=== PATIENT | female | born 1975 | race Hispanic/Latino ===

== ENCOUNTER 2018-08-02 16:44 | Emergency (ER) | payer OTHER ==
[~2018-08-02] VITALS: Ht 160 cm; Wt 104.3 kg
[~2018-08-02 16:44] MED LIST: GLIPIZIDE5 MG PO; SYNTHROID100 MCG PO
--- OUTSIDE RECORDS SUMMARY | 2018-08-02 16:46 | XMS REPORT | Clinical Summary ---
Author Author NATALIE [facility] Address Unknown Phone Unavailable Care Team Providers Care Linen Manager Name Role Phone Anderson Kat MD PCP Allergies Comments Active Allergy Reactions Severity Noted Date Vancomycin Analogues Hives 04/14/2013 Medications End Date Status Medication Sig Dispensed Refills Start Date Active insulin glargine 100 Inject 5 10 Syringe 5 unit/mL (3 mL) InPn Units 7 subcutaneousl y every morning. Active levothyroxine (SYNTHROID, Take 1 tablet 90 tablet 0 LEVOTHROID) 200 MCG (200 mcg 7 tablet total) by mouth Every morning on an empty stomach Total of 250 mcg daily. Active sertraline (ZOLOFT) 25 MG Take 25 mg by 0 tablet mouth daily. 08/28/2017 aspirin 81 MG EC tablet Take 1 tablet 30 tablet 1 (81 mg total) 7 by mouth daily. 08/28/2017 prasugrel (EFFIENT) 10 mg Take 1 tablet 30 tablet 1 Tab tablet (10 mg total) 7 by mouth daily. 11/02/2017 levothyroxine (SYNTHROID, Take 1 tablet 90 tablet 0 LEVOTHROID) 50 MCG tablet (50 mcg 7 total) by mouth Every morning on an empty stomach Total of 250 mcg of levothyroxine daily. 11/02/2017 liothyronine (CYTOMEL) 5 Take 1 tablet 90 tablet 0 MCG tablet (5 mcg total) 7 by mouth daily. 11/02/2017 pregabalin (LYRICA) 25 MG Take 1 90 capsule 0 capsule capsule (25 7 mg total) by mouth nightly. Max Daily Amount: 25 mg 11/02/2017 glipiZIDE-metFORMIN Take 1 tablet 180 tablet 0 (METAGLIP) 5-500 mg per by mouth 2 7 tablet (two) times daily before meals. 11/02/2017 atorvastatin (LIPITOR) 80 Take 1 tablet 90 tablet 0 MG tablet (80 mg total) 7 by mouth daily. Active Problems Problem Noted Date Severe sepsis with septic shock (CODE) 11/05/2016 Elevated lactic acid level 11/05/2016 E coli bacteremia 11/05/2016 Sepsis secondary to UTI 11/04/2016 Iron deficiency anemia secondary to inadequate dietary iron intake 09/24/2016 Myocardial infarction 08/27/2016 Leucocytosis 08/26/2016 Hypochromic microcytic anemia 08/26/2016 Diabetes mellitus due to underlying condition with hyperosmolarity without 08/26/2016 coma, without long-term current use of insulin Precordial chest pain 08/25/2016 Obesity (BMI 30-39.9) 08/25/2016 Hypothyroid 08/25/2016 Diabetic neuropathy 08/25/2016 Type 2 diabetes, uncontrolled, with neuropathy 08/25/2016 NSTEMI (non-ST elevated myocardial infarction) 08/25/2016 Left arm pain 08/25/2016 Acquired hypothyroidism 02/17/2016 Chest pain, unspecified type 02/16/2016 Angular cheilitis 09/25/2013 Anemia 09/24/2013 Hypertension Acid reflux disease Diabetes mellitus Family History Medical History Relation Name Comments Heart disease Father Arthritis Mother Diabetes Mother Hypertension Mother Relation Name Status Comments Father Mother Social History Date Tobacco Use Types Packs/Day Years Used Never Smoker Smokeless Tobacco: Never Used Alcohol Use Drinks/Week oz/Week Comments Yes 1 Cans of 0.6 socially once a month7 beer Sex Assigned at Date Recorded Not on file Industry Job Start Date Occupation Not on file Not on file Not on file Travel End Travel History Travel Start No recent travel history available. Last Filed Vital Signs Not on file Plan of Treatment Health Maintenance Due Date Last Done Comments INFLUENZA VACCINE 03/04/2018 Implants Device Identifier Shelf Expiration Date Model / Serial / Lot Implanted Type Area Manufactur er 06/03/2017 [id number] / / [id number] Device Clsr Angio-Seal Vip 6fr Cardiovasc Right: Groin ST DEB [id number] - [id number] ular MED:CARDIA Implanted: Qty: 1 on 08/25/2016 by Devante Stoner MD 04/11/2017 [id number] / / [id number] Synergy Stents-Cor N/A: Coronary [place] Implanted: Qty: 1 on 08/25/2016 by Devante Salas MD Results Not on fileafter 08/01/2017 Insurance Payer Benefit Subscriber ID Type Phone Address Plan / Group [employer] - [employer] C[employer] HMO xxxxxxxxx HMO/POS POS QPOS Advance Directives For more information, please contact: [address] [address] Date Inactivated Comments Code Status Date Activated 11/07/2016 2:23 PM Full Code 11/04/2016 1:50 PM This code status was determined by: Patient 09/22/2016 7:16 PM Full Code 09/22/2016 2:07 PM This code status was determined by: Patient 02/18/2016 4:23 PM Full Code 02/16/2016 11:55 PM This code status was determined by: Patient 09/26/2013 3:15 PM All possible means of support, including: cardiac massage, mechanical ventilation, and defibrillation will be used to support life. Code ONE 09/24/2013 11:01 PM
--- OUTSIDE RECORDS SUMMARY | 2018-08-02 16:47 | XMS REPORT ---
[facility] Address Unknown Phone Unavailable Care Team Providers Care Body Technician/Painter Name Role Phone AIDANANA MARIATommie SINGLETON Unavailable Unavailable TRACEY FRITZ Unavailable Unavailable JOHN VALDOVINOS Unavailable Unavailable BECKY ECHEVARRIA Unavailable Unavailable ARSLAN SHEPARD Unavailable Unavailable Payers Payer Name Policy Type Policy Number Effective Date Expiration Date Problems This patient has no known problems. Allergies, Adverse Reactions, Alerts Allergy Name Allergy Type Status Severity Reaction(s) Onset Date Inactive Date Treating Clinician Comments vancomycin DA Active SV 2018-03-11 00:00:00 vancomycin DA Active SV 2018-01-15 00:00:00 Medications This patient has no known medications. Results Test Description Test Time Test Comments Text Results Atomic Results Result Comments URINE CULTURE 2017-02-28 15:27:00 CULTURE (BEAKER) (test feck=6324) 30-39,000 col/mL Shantell albicans >100,000 col/ml skin floraBASI METABOLIC [id number] 21:57:00* Test Item Value Reference Range Comments SODIUM (BEAKER) (test bczd=021) 135 meq/L 135-148 POTASSIUM (BEAKER) (test kqph=785) 4.6 meq/L 3.6-5.5 CHLORIDE (BEAKER) (test ikfz=274) 102 meq/L 98-106 CO2 (BEAKER) (test qwyu=609) 24 meq/L 24-32 BLOOD UREA NITROGEN (BEAKER) (test xevj=180) 11 mg/dL 10-26 CREATININE (BEAKER) (test giyz=288) 0.66 mg/dL 0.50-1.20 GLUCOSE RANDOM (BEAKER) (test gkyq=775) 279 mg/dL 70-110 CALCIUM (BEAKER) (test bndl=567) 8.0 mg/dL 8.5-10.5 EGFR (BEAKER) (test uzia=7985) mL/min/1.73 sq m INSUFFICIENT CLINICAL DATA TO CALCULATE ESTIMATED GFR. RAD, CHEST, 2 [id number] 21:21:00Reason for exam:->DIZZINESSReason for exam:->BLURRED VISIONIs the patient ?->UnknownFINAL REPORT EXAMINATION: 2 VIEW CHEST INDICATION: DIZZINESS, BLURRED VISION IMPRESSION: Compared with 01/16/2017 Tip of the right sided Port-A-Cath projects along the expected course of the superior vena cava. No definite evidence of focal lung consolidation, pulmonary edema or pleural effusion. The heart size is normal. A coronary stent is suspected along the expected course of the left coronary artery. Mediastinal contours are sharp and stable. No evidence of an acute osseous abnormality or pneumothorax. In summary, no radiographic evidence of an acute cardiopulmonary process. Signed: [facility] Verified Date/Time: 02/25/2017 21:21:02 Reading Location: [address] Reading Room D TROPONIN [id number] 20:34:00* Test Item Value Reference Range Comments RAPID TROPONIN I (BEAKER) (test ujqy=3967) < ng/mL <0.05 URINALYSIS W/ [id number] 20:32:00* Test Item Value Reference Range Comments COLOR (BEAKER) (test lmux=847) Yellow CLARITY (BEAKER) (test fapy=580) Cloudy SPECIFIC GRAVITY UA (BEAKER) (test zzss=272) 1.010 1.001-1.035 PH UA (BEAKER) (test moxz=594) 6.0 5.0-8.0 PROTEIN UA (BEAKER) (test reex=691) Negative Negative GLUCOSE UA (BEAKER) (test fvng=748) 500 mg/dL Negative KETONES UA (BEAKER) (test lgoe=319) Trace Negative BILIRUBIN UA (BEAKER) (test ajcx=101) Negative Negative BLOOD UA (BEAKER) (test csfv=222) Trace Negative NITRITE UA (BEAKER) (test uioy=169) Negative Negative LEUKOCYTE ESTERASE UA (BEAKER) (test yjxe=322) Small Negative UROBILINOGEN UA (BEAKER) (test cnko=589) 0.2 mg/dL 0.2-1.0 BACTERIA (BEAKER) (test gnke=772) Moderate YEAST (BEAKER) (test jlkh=1613) Few RBC UA-MANUAL (BEAKER) (test otys=7903) <5 /HPF WBC UA-MANUAL (BEAKER) (test rujc=8662) 10-20 /HPF SQUAMOUS EPITHELIAL MANUAL (BEAKER) (test sdzn=5679) 20-50 /HPF SOURCE(BEAKER) (test ceqj=5682) CBC W/PLT COUNT & AUTO [id number] 20:25:00* Test Item Value Reference Range Comments WHITE BLOOD CELL COUNT (BEAKER) (test hskv=268) 11.9 10e3/ L 4.0-10.0 RED BLOOD CELL COUNT (BEAKER) (test gogv=380) 4.25 10e6/ L 4.00-5.00 HEMOGLOBIN (BEAKER) (test rpit=870) 9.0 g/dL 12.0-15.0 HEMATOCRIT (BEAKER) (test vhuj=028) 30.5 % 36.0-45.0 MEAN CORPUSCULAR VOLUME (BEAKER) (test ssrl=381) 71.9 fL 82.0-99.0 MEAN CORPUSCULAR HEMOGLOBIN (BEAKER) (test dsaq=256) 21.3 pg 27.0-33.0 MEAN CORPUSCULAR HEMOGLOBIN CONC (BEAKER) (test jusx=373) 29.6 g/dL 32.0-36.0 RED CELL DISTRIBUTION WIDTH (BEAKER) (test vivv=553) 15.2 % 10.3-14.2 PLATELET COUNT (BEAKER) (test fydw=179) 519 10e3/ L 150-430 Occasional LARGE PLATELETS seen on slide review. MEAN PLATELET VOLUME (BEAKER) (test kihc=780) 8.5 fL 6.5-10.5 NEUTROPHILS RELATIVE PERCENT (BEAKER) (test nypm=756) 64 % LYMPHOCYTES RELATIVE PERCENT (BEAKER) (test vwgx=960) 26 % MONOCYTES RELATIVE PERCENT (BEAKER) (test prru=228) 6 % EOSINOPHILS RELATIVE PERCENT (BEAKER) (test zdhb=075) 4 % BASOPHILS RELATIVE PERCENT (BEAKER) (test gfsq=514) 1 % NEUTROPHILS ABSOLUTE COUNT (BEAKER) (test zhhc=828) 7.59 10e3/ L 1.80-8.00 LYMPHOCYTES ABSOLUTE COUNT (BEAKER) (test ysrq=218) 3.15 10e3/ L 1.48-4.50 MONOCYTES ABSOLUTE COUNT (BEAKER) (test amzk=660) 0.67 10e3/ L 0.00-1.30 EOSINOPHILS ABSOLUTE COUNT (BEAKER) (test niib=504) 0.45 10e3/ L 0.00-0.50 BASOPHILS ABSOLUTE COUNT (BEAKER) (test htiu=458) 0.06 10e3/ L 0.00-0.20 SCREEN, [id number] 20:18:00* Test Item Value Reference Range Comments TEST URINE (BEAKER) (test xtyi=910) Negative BASIC METABOLIC [id number] 20:10:00* Test Item Value Reference Range Comments SODIUM (BEAKER) (test jzeq=803) 134 meq/L 135-148 POTASSIUM (BEAKER) (test jbwd=815) 4.3 meq/L 3.6-5.5 CHLORIDE (BEAKER) (test rjwd=822) 101 meq/L 98-106 CO2 (BEAKER) (test cudx=071) 24 meq/L 24-32 BLOOD UREA NITROGEN (BEAKER) (test ubpn=619) 12 mg/dL 10-26 CREATININE (BEAKER) (test vdgo=643) 0.74 mg/dL 0.50-1.20 GLUCOSE RANDOM (BEAKER) (test jkmq=906) 424 mg/dL 70-110 CALCIUM (BEAKER) (test lcnh=754) 8.4 mg/dL 8.5-10.5 EGFR (BEAKER) (test udtp=8962) mL/min/1.73 sq m INSUFFICIENT CLINICAL DATA TO CALCULATE ESTIMATED GFR. KETONE, [id number] 20:07:00* Test Item Value Reference Range Comments KETONES, BLOOD (BEAKER) (test yenj=7324) 0.3 mmol/L <0.4 POCT-GLUCOSE [id number] 18:48:00* Test Item Value Reference Range Comments POC-GLUCOSE METER (BEAKER) (test hybx=7891) 421 mg/dL 70-110 Notified JUAN WILSON/TESTED AT [facility] [address] [facility] [address] [id number] 11:53:00* Test Item Value Reference Range Comments D-DIMER QUANTITATIVE (BEAKER) (test hcci=204) 0.22 MG/L FEU <0.50 REGARDING D-DIMER RESULTS: Results of this D-Dimer test should always be interpr eted in conjunction with the patient's medical history, clinical presentation an d other findings. DVT clinical diagnosis should not be based on the results of I [place] D-Dimer alone.B-TYPE NATRIURETIC FACTOR (BNP)2017-01-16 11:48:00* Test Item Value Reference Range Comments B-TYPE NATRIURETIC PEPTIDE (BEAKER) (test pzht=794) 38 pg/mL 0-100 RAPID TROPONIN [id number] 11:46:00* Test Item Value Reference Range Comments RAPID TROPONIN I (BEAKER) (test mgvs=3648) < ng/mL <0.05 URINALYSIS W/ REFLEX URINE [id number] 11:43:00* Test Item Value Reference Range Comments COLOR (BEAKER) (test pmus=319) Yellow CLARITY (BEAKER) (test omzk=158) Cloudy SPECIFIC GRAVITY UA (BEAKER) (test pqct=582) 1.020 1.001-1.035 PH UA (BEAKER) (test glqa=747) 7.5 5.0-8.0 PROTEIN UA (BEAKER) (test cfjf=725) 30 mg/dL Negative GLUCOSE UA (BEAKER) (test yaof=278) Negative Negative KETONES UA (BEAKER) (test ebbe=810) 15 mg/dL Negative BILIRUBIN UA (BEAKER) (test nolq=240) Negative Negative BLOOD UA (BEAKER) (test sdna=775) Negative Negative NITRITE UA (BEAKER) (test unst=224) Negative Negative LEUKOCYTE ESTERASE UA (BEAKER) (test thhb=189) Negative Negative UROBILINOGEN UA (BEAKER) (test dfry=159) 0.2 mg/dL 0.2-1.0 BACTERIA (BEAKER) (test vskl=788) Moderate RBC UA-MANUAL (BEAKER) (test ygpp=1037) <5 /HPF WBC UA-MANUAL (BEAKER) (test rekt=8909) 5-10 /HPF SQUAMOUS EPITHELIAL MANUAL (BEAKER) (test hqhf=0287) 50-100 /HPF Clue cells SOURCE(BEAKER) (test palh=2501) COMPREHENSIVE METABOLIC [id number] 11:42:00* Test Item Value Reference Range Comments TOTAL PROTEIN (BEAKER) (test jpnu=658) 7.5 gm/dL 6.0-8.5 ALBUMIN (BEAKER) (test dxhd=1058) 4.1 g/dL 3.5-5.0 ALKALINE PHOSPHATASE (BEAKER) (test sfit=554) 154 U/L 30-115 BILIRUBIN TOTAL (BEAKER) (test tmdj=104) 0.4 mg/dL 0.1-1.2 SODIUM (BEAKER) (test fuay=803) 139 meq/L 135-148 POTASSIUM (BEAKER) (test livs=051) 4.3 meq/L 3.6-5.5 CHLORIDE (BEAKER) (test mnjw=530) 98 meq/L 98-106 CO2 (BEAKER) (test fnxf=937) 26 meq/L 24-32 BLOOD UREA NITROGEN (BEAKER) (test drvt=021) 6 mg/dL 10-26 CREATININE (BEAKER) (test cwth=363) 0.51 mg/dL 0.50-1.20 GLUCOSE RANDOM (BEAKER) (test kfrh=982) 256 mg/dL 70-110 CALCIUM (BEAKER) (test gplr=543) 8.6 mg/dL 8.5-10.5 AST (SGOT) (BEAKER) (test rbps=358) 34 U/L 5-40 ALT (SGPT) (BEAKER) (test eqve=754) 38 U/L 5-50 EGFR (BEAKER) (test awcc=3068) mL/min/1.73 sq m INSUFFICIENT CLINICAL DATA TO CALCULATE ESTIMATED GFR. [id number] 11:41:00* Test Item Value Reference Range Comments LIPASE (BEAKER) (test mbkq=051) 84 U/L 40-240 CBC W/PLT COUNT & AUTO [id number] 11:36:00* Test Item Value Reference Range Comments WHITE BLOOD CELL COUNT (BEAKER) (test jwoa=457) 10.6 10e3/ L 4.0-10.0 RED BLOOD CELL COUNT (BEAKER) (test dhit=066) 4.45 10e6/ L 4.00-5.00 HEMOGLOBIN (BEAKER) (test tqox=840) 10.2 g/dL 12.0-15.0 HEMATOCRIT (BEAKER) (test sveo=288) 33.5 % 36.0-45.0 MEAN CORPUSCULAR VOLUME (BEAKER) (test tbhs=627) 75.3 fL 82.0-99.0 MEAN CORPUSCULAR HEMOGLOBIN (BEAKER) (test cczl=431) 22.9 pg 27.0-33.0 MEAN CORPUSCULAR HEMOGLOBIN CONC (BEAKER) (test irve=206) 30.4 g/dL 32.0-36.0 RED CELL DISTRIBUTION WIDTH (BEAKER) (test snxb=512) 14.6 % 10.3-14.2 PLATELET COUNT (BEAKER) (test wtnr=332) 779 10e3/ L 150-430 MEAN PLATELET VOLUME (BEAKER) (test izdp=785) 7.6 fL 6.5-10.5 NEUTROPHILS RELATIVE PERCENT (BEAKER) (test fmdz=544) 64 % LYMPHOCYTES RELATIVE PERCENT (BEAKER) (test kajc=005) 28 % MONOCYTES RELATIVE PERCENT (BEAKER) (test wrjm=721) 5 % EOSINOPHILS RELATIVE PERCENT (BEAKER) (test hwvf=946) 2 % BASOPHILS RELATIVE PERCENT (BEAKER) (test puth=599) 1 % NEUTROPHILS ABSOLUTE COUNT (BEAKER) (test fxil=598) 6.75 10e3/ L 1.80-8.00 LYMPHOCYTES ABSOLUTE COUNT (BEAKER) (test spvs=357) 2.95 10e3/ L 1.48-4.50 MONOCYTES ABSOLUTE COUNT (BEAKER) (test fnmw=496) 0.55 10e3/ L 0.00-1.30 EOSINOPHILS ABSOLUTE COUNT (BEAKER) (test uhpg=059) 0.23 10e3/ L 0.00-0.50 BASOPHILS ABSOLUTE COUNT (BEAKER) (test bdkr=481) 0.06 10e3/ L 0.00-0.20 SCREEN, [id number] 11:35:00* Test Item Value Reference Range Comments TEST URINE (BEAKER) (test dopj=704) Negative URINE [id number] 09:32:00* Test Item Value Reference Range Comments CULTURE (BEAKER) (test zlde=9884) ESCHERICHIA COLI >100,000 col/mL Escherichia coli Amikacin (test code=1) Ampicillin + Sulbactam (test code=6) Aztreonam (test code=32) Cefepime (test code=51) Cefoxitin (test code=68) Ceftazidime (test code=27) Ceftriaxone (test code=52) Ertapenem (test code=38) Gentamicin (test code=18) Levofloxacin (test code=22) Meropenem (test code=34) Nitrofurantoin (test code=23) Piperacillin + Tazobactam (test code=29) Tetracycline (test code=2) Tobramycin (test code=25) Trimethoprim + Sulfamethoxazole (test code=47) <10,000 col/mL skin floraOSMOLALITY, [id number] 01:36:00* Test Item Value Reference Range Comments OSMOLALITY, SERUM (BEAKER) (test xkvi=448) 312 mOsm/kg 275-295 POCT-GLUCOSE [id number] 01:16:00* Test Item Value Reference Range Comments POC-GLUCOSE METER (BEAKER) (test optf=0507) 251 mg/dL 70-110 TESTED AT [facility] [id number] [place] [address] POCT-GLUCOSE [id number] 00:29:00* Test Item Value Reference Range Comments POC-GLUCOSE METER (BEAKER) (test cvmd=9137) 327 mg/dL 70-110 Notified JUAN WILSON/TESTED AT [address] [address] URINALYSIS W/ [id number] 00:04:00* Test Item Value Reference Range Comments COLOR (BEAKER) (test ulvc=963) [place] CLARITY (BEAKER) (test blez=457) Cloudy SPECIFIC GRAVITY UA (BEAKER) (test otif=674) 1.028 1.001-1.035 Refractometer=1.028 PH UA (BEAKER) (test olow=305) 5.0 5.0-8.0 PROTEIN UA (BEAKER) (test wzdr=246) 100 mg/dL Negative GLUCOSE UA (BEAKER) (test gnmc=315) 500 mg/dL Negative KETONES UA (BEAKER) (test ddbb=697) Trace Negative BILIRUBIN UA (BEAKER) (test dqyv=206) Negative Negative BLOOD UA (BEAKER) (test hntt=843) Small Negative NITRITE UA (BEAKER) (test anep=162) Positive Negative LEUKOCYTE ESTERASE UA (BEAKER) (test omua=973) Large Negative UROBILINOGEN UA (BEAKER) (test hpwo=075) mg/dL 0.2-1.0 Interfering substances present in the urine; unable to confirm results. BACTERIA (BEAKER) (test zveh=713) Moderate MUCUS (BEAKER) (test pbbe=0714) Rare RBC UA-MANUAL (BEAKER) (test ztvb=4081) <5 /HPF WBC UA-MANUAL (BEAKER) (test ixvu=5983) 50-100 /HPF SQUAMOUS EPITHELIAL MANUAL (BEAKER) (test tzly=4117) 10-20 /HPF SOURCE(BEAKER) (test dipk=6971) CBC W/PLT COUNT & AUTO [id number] 23:55:00* Test Item Value Reference Range Comments WHITE BLOOD CELL COUNT (BEAKER) (test djbg=459) 13.6 10e3/ L 4.0-10.0 RED BLOOD CELL COUNT (BEAKER) (test dtyp=918) 4.59 10e6/ L 4.00-5.00 1+ HYPOCHROMIA; Few STOMATOCYTES seen on slide review. HEMOGLOBIN (BEAKER) (test maji=356) 10.8 g/dL 12.0-15.0 HEMATOCRIT (BEAKER) (test cqli=642) 35.2 % 36.0-45.0 MEAN CORPUSCULAR VOLUME (BEAKER) (test owes=043) 76.7 fL 82.0-99.0 MEAN CORPUSCULAR HEMOGLOBIN (BEAKER) (test ipil=182) 23.6 pg 27.0-33.0 MEAN CORPUSCULAR HEMOGLOBIN CONC (BEAKER) (test mwdz=599) 30.7 g/dL 32.0-36.0 RED CELL DISTRIBUTION WIDTH (BEAKER) (test kwyl=288) 15.4 % 10.3-14.2 PLATELET COUNT (BEAKER) (test btmg=140) 573 10e3/ L 150-430 Occasional LARGE PLATELETS seen on slide review. MEAN PLATELET VOLUME (BEAKER) (test jkrh=480) 8.2 fL 6.5-10.5 NEUTROPHILS RELATIVE PERCENT (BEAKER) (test ihwk=045) 67 % LYMPHOCYTES RELATIVE PERCENT (BEAKER) (test paln=407) 24 % MONOCYTES RELATIVE PERCENT (BEAKER) (test zlnf=647) 7 % EOSINOPHILS RELATIVE PERCENT (BEAKER) (test dzbb=147) 2 % BASOPHILS RELATIVE PERCENT (BEAKER) (test rhsi=224) 1 % NEUTROPHILS ABSOLUTE COUNT (BEAKER) (test sxpw=901) 9.05 10e3/ L 1.80-8.00 LYMPHOCYTES ABSOLUTE COUNT (BEAKER) (test eyus=273) 3.21 10e3/ L 1.48-4.50 MONOCYTES ABSOLUTE COUNT (BEAKER) (test rfym=214) 0.98 10e3/ L 0.00-1.30 EOSINOPHILS ABSOLUTE COUNT (BEAKER) (test krci=799) 0.27 10e3/ L 0.00-0.50 BASOPHILS ABSOLUTE COUNT (BEAKER) (test eoty=810) 0.08 10e3/ L 0.00-0.20 RAPID [id number] 23:47:00* Test Item Value Reference Range Comments RAPID CKMB (BEAKER) (test pfcl=0134) < ng/mL 0.0-4.3 RAPID [id number] 23:47:00* Test Item Value Reference Range Comments RAPID MYOGLOBIN (BEAKER) (test bcyn=9406) 52 ng/mL <107 RAPID TROPONIN [id number] 23:46:00* Test Item Value Reference Range Comments RAPID TROPONIN I (BEAKER) (test hzhw=0986) < ng/mL <0.05 BASIC METABOLIC [id number] 23:35:00* Test Item Value Reference Range Comments SODIUM (BEAKER) (test wimw=227) 136 meq/L 135-148 POTASSIUM (BEAKER) (test srht=727) 4.2 meq/L 3.6-5.5 CHLORIDE (BEAKER) (test vocz=568) 98 meq/L 98-106 CO2 (BEAKER) (test gxsu=213) 25 meq/L 24-32 BLOOD UREA NITROGEN (BEAKER) (test uwtp=689) 14 mg/dL 10-26 CREATININE (BEAKER) (test yuss=042) 0.77 mg/dL 0.50-1.20 GLUCOSE RANDOM (BEAKER) (test nwmc=608) 429 mg/dL 70-110 CALCIUM (BEAKER) (test shry=283) 9.2 mg/dL 8.5-10.5 EGFR (BEAKER) (test wnjb=3493) 83 mL/min/1.73 sq m ESTIMATED GFR IS NOT ACCURATE CREATININE CLEARANCE IN PREDICTING GLOMERULAR FILTRATION RATE. ESTIMATED GFR IS NOT APPLICABLE FOR DIALYSIS PATIENTS. HEPATIC FUNCTION [id number] 23:32:00* Test Item Value Reference Range Comments TOTAL PROTEIN (BEAKER) (test ewsd=153) 7.6 gm/dL 6.0-8.5 ALBUMIN (BEAKER) (test pagv=1825) 4.2 g/dL 3.5-5.0 BILIRUBIN TOTAL (BEAKER) (test mbof=762) 0.3 mg/dL 0.1-1.2 BILIRUBIN DIRECT (BEAKER) (test hjtb=026) 0.0 mg/dL 0.0-0.4 ALKALINE PHOSPHATASE (BEAKER) (test gkmp=271) 187 U/L 30-115 AST (SGOT) (BEAKER) (test jdjy=071) 31 U/L 5-40 ALT (SGPT) (BEAKER) (test ecte=729) 36 U/L 5-50 [id number] 23:30:00* Test Item Value Reference Range Comments MAGNESIUM (BEAKER) (test cllk=488) 1.3 mg/dL 1.5-3.0 [id number] 23:30:00* Test Item Value Reference Range Comments AMYLASE (BEAKER) (test zxdh=744) 71 U/L 30-110 [id number] 23:30:00* Test Item Value Reference Range Comments LIPASE (BEAKER) (test mixf=539) 127 U/L 40-240 KETONE, [id number] 23:24:00* Test Item Value Reference Range Comments KETONES, BLOOD (BEAKER) (test kmor=1031) 0.2 mmol/L <0.4 POCT-GLUCOSE [id number] 22:41:00* Test Item Value Reference Range Comments POC-GLUCOSE METER (BEAKER) (test dfho=2640) 462 mg/dL 70-110 Verify with Lab draw/TESTED AT [facility]- [id number] [place] [address] BLOOD [id number] 11:00:00* Test Item Value Reference Range Comments CULTURE (BEAKER) (test fgtc=3382) No growth in 5 days BLOOD [id number] 11:00:00* Test Item Value Reference Range Comments CULTURE (BEAKER) (test nzhd=0578) No growth in 5 days BLOOD [id number] 11:45:00* Test Item Value Reference Range Comments CULTURE (BEAKER) (test dwwy=4351) From Aerobic And Anaerobic Bottles Same organism has been isolated from cultures(s) of the same body site and collection date. Repeat identification and susceptibility testing performed only after consultation with the clinical microbiology laboratory.Refer to previous culture ofEscherichia coli GRAM STAIN RESULT (BEAKER) (test xwwm=0228) From aerobic and anaerobic bottles: gram negative rods ESCHERICHIA COLI DETECTEDFirst line therapy: ceftriaxone meropenem if critically ill or history of an ESBL producing pathogenDe-escalate based on susceptibiliti esTested at [facility] using the [employer] Film[employer] BCID Panel ([employer] | [place], [place]). This test has been FDA Approved and verifi cation was performed prior to clinical use. Reference Range: Not DetectedBLOOD [id number] 08:23:00* Test Item Value Reference Range Comments CULTURE (BEAKER) (test atbc=1753) ESCHERICHIA COLI From Aerobic And Anaerobic Bottles Escherichia coli Amikacin (test code=1) Ampicillin + Sulbactam (test code=6) Aztreonam (test code=32) Cefazolin (test code=9) Cefepime (test code=51) Cefoxitin (test code=68) Ceftazidime (test code=27) Ceftriaxone (test code=52) Ertapenem (test code=38) Gentamicin (test code=18) Levofloxacin (test code=22) Meropenem (test code=34) Nitrofurantoin (test code=23) Piperacillin + Tazobactam (test code=29) Tetracycline (test code=2) Tigecycline (test hbbk=002) Tobramycin (test code=25) Trimethoprim + Sulfamethoxazole (test code=47) CULTURE (BEAKER) (test hmpi=8255) ESCHERICHIA COLI From Aerobic And Anaerobic Bottles Escherichia coliof a second type Amikacin (test code=1) Ampicillin + Sulbactam (test code=6) Aztreonam (test code=32) Cefazolin (test code=92) Cefepime (test code=51) Cefoxitin (test code=68) Ceftazidime (test code=27) Ceftriaxone (test code=52) Ertapenem (test code=38) Gentamicin (test code=18) Levofloxacin (test code=22) Meropenem (test code=34) Nitrofurantoin (test dslc=189) Piperacillin + Tazobactam (test code=29) Tetracycline (test code=2) Tigecycline (test gzca=3032) Tobramycin (test code=25) Trimethoprim + Sulfamethoxazole (test code=47) GRAM STAIN RESULT (AtavistAKER) (test mttp=4967) From aerobic and anaerobic bottles: gram negative rods ESCHERICHIA COLI DETECTEDFirst line therapy: ceftriaxone meropenem if critically ill or history of an ESBL producing pathogenDe-escalate based on susceptibiliti esTested at [facility] using the [employer] BCID Panel ([employer] | [place], [place]). This test has been FDA Approved and verifi cation was performed prior to clinical use. Reference Range: Not Detected MISCELLANEOUS LAB [id number] 17:48:00* Test Item Value Reference Range Comments SCAN RESULT (test psyc=[id number]) ESCHERICHIA COLI DETECTEDFirst line therapy: ceftriaxone meropenem if critically ill or history of an ESBL producing pathogenDe-escalate based on susceptibiliti esTested at [facility] using the [employer] BCID Panel ([employer] | [place], [place]). This test has been FDA Approved and verifi cation was performed prior to clinical use. Reference Range: Not DetectedPOCT- GLUCOSE [id number] 08:43:00* Test Item Value Reference Range Comments POC-GLUCOSE METER (BEAKER) (test kqvs=1503) 309 mg/dL 70-110 Will Repeat Test/TESTED AT [facility] [address] [facility] [address] URINE [id number] 08:23:00* Test Item Value Reference Range Comments CULTURE (AtavistAKER) (test yxgc=6933) No growth URINE [id number] 08:10:00* Test Item Value Reference Range Comments CULTURE (BEAKER) (test ysfr=4662) ESCHERICHIA COLI >100,000 col/mL Escherichia coli Amikacin (test code=1) Ampicillin + Sulbactam (test code=6) Aztreonam (test code=32) Cefazolin (test code=9) Cefepime (test code=51) Cefoxitin (test code=68) Ceftazidime (test code=27) Ceftriaxone (test code=52) Ertapenem (test code=38) Gentamicin (test code=18) Levofloxacin (test code=22) Meropenem (test code=34) Nitrofurantoin (test code=23) Piperacillin + Tazobactam (test code=29) Tetracycline (test code=2) Tigecycline (test rxsy=828) Tobramycin (test code=25) Trimethoprim + Sulfamethoxazole (test code=47) <10,000 col/mL skin floraCBC W/PLT COUNT & AUTO [id number] 05:35:00 * Test Item Value Reference Range Comments WHITE BLOOD CELL COUNT (BEAKER) (test dsus=245) 6.5 K/ L 4.0-10.0 RED BLOOD CELL COUNT (BEAKER) (test dmsk=168) 4.19 M/ L 4.00-5.00 HEMOGLOBIN (BEAKER) (test bgpo=086) 10.6 GM/DL 12.0-15.0 HEMATOCRIT (BEAKER) (test uchh=371) 34.6 % 36.0-45.0 MEAN CORPUSCULAR VOLUME (BEAKER) (test wavv=633) 82.6 fL 82.0-99.0 MEAN CORPUSCULAR HEMOGLOBIN (BEAKER) (test owxp=229) 25.2 pg 27.0-33.0 MEAN CORPUSCULAR HEMOGLOBIN CONC (BEAKER) (test rvkx=414) 30.5 GM/DL 32.0-36.0 RED CELL DISTRIBUTION WIDTH (BEAKER) (test ulmh=616) 22.5 % 10.3-14.2 PLATELET COUNT (BEAKER) (test edep=231) 348 K/CU MM 150-430 MEAN PLATELET VOLUME (BEAKER) (test kvvi=710) 9.0 fL 6.5-10.5 NUCLEATED RED BLOOD CELLS (BEAKER) (test gosk=211) 0 /100 WBC 0-0 NEUTROPHILS RELATIVE PERCENT (BEAKER) (test wgoi=113) 60 % LYMPHOCYTES RELATIVE PERCENT (BEAKER) (test poge=738) 27 % MONOCYTES RELATIVE PERCENT (BEAKER) (test llgl=966) 9 % EOSINOPHILS RELATIVE PERCENT (BEAKER) (test hdov=613) 4 % BASOPHILS RELATIVE PERCENT (BEAKER) (test blso=599) 1 % NEUTROPHILS ABSOLUTE COUNT (BEAKER) (test ffms=264) 3.87 K/ L 1.80-8.00 LYMPHOCYTES ABSOLUTE COUNT (BEAKER) (test yfxc=970) 1.71 K/ L 1.48-4.50 MONOCYTES ABSOLUTE COUNT (BEAKER) (test hwbc=949) 0.58 K/ L 0.00-1.30 EOSINOPHILS ABSOLUTE COUNT (BEAKER) (test rsii=802) 0.25 K/ L 0.00-0.50 BASOPHILS ABSOLUTE COUNT (BEAKER) (test lctm=994) 0.06 K/ L 0.00-0.20 0.00BASIC METABOLIC [id number] 05:33:00* Test Item Value Reference Range Comments SODIUM (BEAKER) (test jnam=928) 135 meq/L 136-145 POTASSIUM (BEAKER) (test glze=734) 3.6 meq/L 3.5-5.1 CHLORIDE (BEAKER) (test tloh=601) 102 meq/L 98-107 CO2 (BEAKER) (test okak=357) 24 meq/L 22-29 BLOOD UREA NITROGEN (BEAKER) (test goap=011) 8 mg/dL 7-21 CREATININE (BEAKER) (test jrlj=331) 0.81 mg/dL 0.57-1.25 GLUCOSE RANDOM (BEAKER) (test urut=916) 287 mg/dL 70-105 CALCIUM (BEAKER) (test uexx=210) 8.6 mg/dL 8.4-10.2 EGFR (BEAKER) (test cyqs=4792) 79 mL/min/1.73 sq m ESTIMATED GFR IS NOT ACCURATE CREATININE CLEARANCE IN PREDICTING GLOMERULAR FILTRATION RATE. ESTIMATED GFR IS NOT APPLICABLE FOR DIALYSIS PATIENTS. POCT-GLUCOSE [id number] 22:08:00* Test Item Value Reference Range Comments POC-GLUCOSE METER (BEAKER) (test vzmc=8086) 367 mg/dL 70-110 TESTED AT [facility] [address] [facility] [address] POCT-GLUCOSE [id number] 19:46:00* Test Item Value Reference Range Comments POC-GLUCOSE METER (BEAKER) (test mqgh=2008) 364 mg/dL 70-110 TESTED AT [address] [address] POCT-GLUCOSE [id number] 11:45:00* Test Item Value Reference Range Comments POC-GLUCOSE METER (BEAKER) (test ttlh=4758) 230 mg/dL 70-110 TESTED AT [address] [address] POCT-GLUCOSE [id number] 08:41:00* Test Item Value Reference Range Comments POC-GLUCOSE METER (BEAKER) (test eoan=7583) 270 mg/dL 70-110 TESTED AT [address] [address] CBC W/PLT COUNT & AUTO [id number] 03:56:00* Test Item Value Reference Range Comments WHITE BLOOD CELL COUNT (BEAKER) (test ydmy=673) 6.9 K/ L 4.0-10.0 RED BLOOD CELL COUNT (BEAKER) (test vjpb=926) 3.93 M/ L 4.00-5.00 HEMOGLOBIN (BEAKER) (test llbi=019) 10.2 GM/DL 12.0-15.0 HEMATOCRIT (BEAKER) (test eppu=579) 32.8 % 36.0-45.0 MEAN CORPUSCULAR VOLUME (BEAKER) (test oooo=964) 83.3 fL 82.0-99.0 MEAN CORPUSCULAR HEMOGLOBIN (BEAKER) (test zwol=457) 25.8 pg 27.0-33.0 MEAN CORPUSCULAR HEMOGLOBIN CONC (BEAKER) (test exlm=870) 31.0 GM/DL 32.0-36.0 RED CELL DISTRIBUTION WIDTH (BEAKER) (test noct=634) 21.7 % 10.3-14.2 PLATELET COUNT (BEAKER) (test vgwd=650) 335 K/CU MM 150-430 MEAN PLATELET VOLUME (BEAKER) (test rnkx=007) 8.8 fL 6.5-10.5 NUCLEATED RED BLOOD CELLS (BEAKER) (test csuf=597) 0 /100 WBC 0-0 NEUTROPHILS RELATIVE PERCENT (BEAKER) (test bpul=626) 78 % LYMPHOCYTES RELATIVE PERCENT (BEAKER) (test quzs=611) 13 % MONOCYTES RELATIVE PERCENT (BEAKER) (test noqi=481) 6 % EOSINOPHILS RELATIVE PERCENT (BEAKER) (test ctkq=540) 2 % BASOPHILS RELATIVE PERCENT (BEAKER) (test ugfu=974) 0 % NEUTROPHILS ABSOLUTE COUNT (BEAKER) (test dzpf=266) 5.38 K/ L 1.80-8.00 LYMPHOCYTES ABSOLUTE COUNT (BEAKER) (test vhec=111) 0.93 K/ L 1.48-4.50 MONOCYTES ABSOLUTE COUNT (BEAKER) (test mdtw=097) 0.44 K/ L 0.00-1.30 EOSINOPHILS ABSOLUTE COUNT (BEAKER) (test pkmb=932) 0.14 K/ L 0.00-0.50 BASOPHILS ABSOLUTE COUNT (BEAKER) (test lckw=031) 0.01 K/ L 0.00-0.20 0.00BASIC METABOLIC [id number] 03:40:00* Test Item Value Reference Range Comments SODIUM (BEAKER) (test eqhs=040) 135 meq/L 136-145 POTASSIUM (BEAKER) (test pfty=049) 4.0 meq/L 3.5-5.1 Specimen moderately hemolyzed CHLORIDE (BEAKER) (test tsqv=330) 106 meq/L 98-107 CO2 (BEAKER) (test wxvg=010) 21 meq/L 22-29 BLOOD UREA NITROGEN (BEAKER) (test itka=832) 6 mg/dL 7-21 CREATININE (BEAKER) (test bqix=859) 0.78 mg/dL 0.57-1.25 Specimen moderately hemolyzed GLUCOSE RANDOM (BEAKER) (test ipsh=033) 266 mg/dL 70-105 CALCIUM (BEAKER) (test cbzy=003) 8.0 mg/dL 8.4-10.2 EGFR (BEAKER) (test ypvs=7217) 83 mL/min/1.73 sq m ESTIMATED GFR IS NOT ACCURATE CREATININE CLEARANCE IN PREDICTING GLOMERULAR FILTRATION RATE. ESTIMATED GFR IS NOT APPLICABLE FOR DIALYSIS PATIENTS. LACTIC ACID, VENOUS, WHOLE [id number] 03:37:00* Test Item Value Reference Range Comments LACTATE BLOOD VENOUS (2) (BEAKER) (test wpso=1489) 1.7 mmol/L 0.5-2.2 Specimen slightly hemolyzed Effective 10/06/2015: Units/Reference Range ChangeNew: 0.5-2.2 mmol/L Previous: 5 -20 mg/dLURINALYSIS W/ [id number] 16:45:00* Test Item Value Reference Range Comments COLOR (BEAKER) (test cllt=052) Light Yellow CLARITY (BEAKER) (test kjjz=019) Clear SPECIFIC GRAVITY UA (BEAKER) (test lags=470) 1.011 1.001-1.035 PH UA (BEAKER) (test rzpp=330) 7.0 5.0-8.0 PROTEIN UA (BEAKER) (test ggsh=773) 10 mg/dL Negative GLUCOSE UA (BEAKER) (test mfhk=529) >1000 mg/dL Negative KETONES UA (BEAKER) (test xshg=761) Negative Negative BILIRUBIN UA (BEAKER) (test xwda=327) Negative Negative BLOOD UA (BEAKER) (test eowp=858) Negative Negative NITRITE UA (BEAKER) (test qryd=626) Negative Negative LEUKOCYTE ESTERASE UA (BEAKER) (test dkpc=152) Negative Negative UROBILINOGEN UA (BEAKER) (test jgmw=890) 0.2 mg/dL 0.2-1.0 RBC UA (BEAKER) (test lxws=255) < /HPF WBC UA (BEAKER) (test fcbk=395) 1 /HPF SQUAMOUS EPITHELIAL (BEAKER) (test wtro=135) 1 /HPF SOURCE(BEAKER) (test mtmv=4328) Urine, Clean Catch [id number] 12:15:00* Test Item Value Reference Range Comments PROCALCITONIN (BEAKER) (test ksky=5141) 6.87 ng/mL <0.05 SEPSIS RISK (ng/mL)Low: 0.05-0.50Intermediate: 0.51-2.00High: > =2.01LACTIC ACID, VENOUS, WHOLE [id number] 10:33:00* Test Item Value Reference Range Comments LACTATE BLOOD VENOUS (2) (BEAKER) (test wuov=0944) 2.2 mmol/L 0.5-2.2 Effective 10/06/2015: Units/Reference Range ChangeNew: 0.5-2.2 mmol/L Previous: 5 -20 mg/dLLACTIC ACID, VENOUS, WHOLE [id number] 08:56:00* Test Item Value Reference Range Comments LACTATE BLOOD VENOUS (2) (BEAKER) (test uqwd=6762) 1.8 mmol/L 0.5-2.2 Effective 10/06/2015: Units/Reference Range ChangeNew: 0.5-2.2 mmol/L Previous: 5 -20 mg/dLLACTIC ACID, VENOUS, WHOLE [id number] 07:51:00* Test Item Value Reference Range Comments LACTATE BLOOD VENOUS (2) (BEAKER) (test lbsp=7554) 1.7 mmol/L 0.5-2.2 Specimen slightly hemolyzed Effective 10/06/2015: Units/Reference Range ChangeNew: 0.5-2.2 mmol/L Previous: 5 -20 mg/dLCOMPREHENSIVE METABOLIC [id number] 05:31:00* Test Item Value Reference Range Comments TOTAL PROTEIN (BEAKER) (test xtrv=800) 5.8 gm/dL 6.0-8.3 ALBUMIN (BEAKER) (test uxhv=4889) 3.0 g/dL 3.5-5.0 ALKALINE PHOSPHATASE (BEAKER) (test mlwj=997) 124 U/L 40-150 BILIRUBIN TOTAL (BEAKER) (test aeyb=105) 0.4 mg/dL 0.2-1.2 SODIUM (BEAKER) (test wuij=849) 135 meq/L 136-145 POTASSIUM (BEAKER) (test bcqh=346) 3.9 meq/L 3.5-5.1 CHLORIDE (BEAKER) (test nwcl=006) 107 meq/L 98-107 CO2 (BEAKER) (test nlxy=352) 18 meq/L 22-29 BLOOD UREA NITROGEN (BEAKER) (test bjsl=545) 7 mg/dL 7-21 CREATININE (BEAKER) (test lmcj=696) 0.90 mg/dL 0.57-1.25 GLUCOSE RANDOM (BEAKER) (test pvar=905) 335 mg/dL 70-105 CALCIUM (BEAKER) (test mohy=286) 7.9 mg/dL 8.4-10.2 AST (SGOT) (BEAKER) (test rnus=514) 34 U/L 5-34 ALT (SGPT) (BEAKER) (test xsve=576) 31 U/L 6-55 EGFR (BEAKER) (test kwsu=2300) 70 mL/min/1.73 sq m ESTIMATED GFR IS NOT ACCURATE CREATININE CLEARANCE IN PREDICTING GLOMERULAR FILTRATION RATE. ESTIMATED GFR IS NOT APPLICABLE FOR DIALYSIS PATIENTS. CBC (HEMOGRAM ONLY)2016-11-05 05:22:00* Test Item Value Reference Range Comments WHITE BLOOD CELL COUNT (BEAKER) (test uqeg=763) 16.6 K/ L 4.0-10.0 RED BLOOD CELL COUNT (BEAKER) (test usti=342) 4.01 M/ L 4.00-5.00 HEMOGLOBIN (BEAKER) (test yzgu=295) 10.0 GM/DL 12.0-15.0 HEMATOCRIT (BEAKER) (test tjcb=591) 33.3 % 36.0-45.0 MEAN CORPUSCULAR VOLUME (BEAKER) (test klxg=950) 82.9 fL 82.0-99.0 MEAN CORPUSCULAR HEMOGLOBIN (BEAKER) (test vydw=684) 24.8 pg 27.0-33.0 MEAN CORPUSCULAR HEMOGLOBIN CONC (BEAKER) (test yzyn=979) 30.0 GM/DL 32.0-36.0 RED CELL DISTRIBUTION WIDTH (BEAKER) (test xqav=822) 21.9 % 10.3-14.2 PLATELET COUNT (BEAKER) (test cvqi=901) 376 K/CU MM 150-430 MEAN PLATELET VOLUME (BEAKER) (test wcoe=523) 8.5 fL 6.5-10.5 NUCLEATED RED BLOOD CELLS (BEAKER) (test kiqq=578) 0 /100 WBC 0-0 0.000.530.000.000.520.000.000.000.00LACTIC ACID, VENOUS, WHOLE [id number] 05:01:00* Test Item Value Reference Range Comments LACTATE BLOOD VENOUS (2) (BEAKER) (test rknt=4925) 3.0 mmol/L 0.5-2.2 Effective 10/06/2015: Units/Reference Range ChangeNew: 0.5-2.2 mmol/L Previous: 5 -20 mg/dLLACTIC ACID, VENOUS, WHOLE [id number] 03:11:00* Test Item Value Reference Range Comments LACTATE BLOOD VENOUS (2) (BEAKER) (test istq=3018) 2.5 mmol/L 0.5-2.2 Specimen moderately hemolyzed Effective 10/06/2015: Units/Reference Range ChangeNew: 0.5-2.2 mmol/L Previous: 5 -20 mg/dLB-TYPE NATRIURETIC FACTOR (BNP)2016-11-05 01:04:00* Test Item Value Reference Range Comments B-TYPE NATRIURETIC PEPTIDE (BEAKER) (test orir=551) 100 pg/mL 0-100 LACTIC ACID, VENOUS, WHOLE [id number] 00:45:00* Test Item Value Reference Range Comments LACTATE BLOOD VENOUS (2) (BEAKER) (test seyu=7684) 4.6 mmol/L 0.5-2.2 Effective 10/06/2015: Units/Reference Range ChangeNew: 0.5-2.2 mmol/L Previous: 5 -20 mg/dLHEMOGLOBIN AND [id number] 00:23:00* Test Item Value Reference Range Comments HEMOGLOBIN (BEAKER) (test akmd=624) 9.3 GM/DL 12.0-15.0 HEMATOCRIT (BEAKER) (test ubbj=456) 29.4 % 36.0-45.0 CBC W/PLT COUNT & AUTO [id number] 23:16:00* Test Item Value Reference Range Comments WHITE BLOOD CELL COUNT (BEAKER) (test ylpf=898) 23.9 K/ L 4.0-10.0 RED BLOOD CELL COUNT (BEAKER) (test hawq=096) 3.99 M/ L 4.00-5.00 HEMOGLOBIN (BEAKER) (test bnin=306) 9.8 GM/DL 12.0-15.0 HEMATOCRIT (BEAKER) (test wole=640) 32.6 % 36.0-45.0 MEAN CORPUSCULAR VOLUME (BEAKER) (test vubj=771) 81.8 fL 82.0-99.0 MEAN CORPUSCULAR HEMOGLOBIN (BEAKER) (test zpun=044) 24.6 pg 27.0-33.0 MEAN CORPUSCULAR HEMOGLOBIN CONC (BEAKER) (test fnlv=883) 30.0 GM/DL 32.0-36.0 RED CELL DISTRIBUTION WIDTH (BEAKER) (test nsqv=748) 22.6 % 10.3-14.2 PLATELET COUNT (BEAKER) (test cinm=542) 401 K/CU MM 150-430 MEAN PLATELET VOLUME (BEAKER) (test hekn=711) 8.6 fL 6.5-10.5 NUCLEATED RED BLOOD CELLS (BEAKER) (test sxor=297) 0 /100 WBC 0-0 0.000.720.000.000.690.000.000.000.00(MANUAL DIFFERENTIAL)2016-11-04 23:16:00* Test Item Value Reference Range Comments NEUTROPHILS - REL (DIFF) (BEAKER) (test ptbr=0336) 80 % LYMPHOCYTES - REL (DIFF) (BEAKER) (test baqd=2785) 4 % MONOCYTES - REL (DIFF) (BEAKER) (test obbr=2231) 2 % METAMYELOCYTES-REL (DIFF) (BEAKER) (test tikk=886) 1 % 0-0 MYELOCYTES-REL (DIFF) (BEAKER) (test crxl=1686) 1 % 0-0 BANDS - REL (DIFF) (BEAKER) (test lfjr=3800) 12 % 0-10 NEUTROPHILS - ABS (DIFF) (BEAKER) (test dtjr=1824) 19.12 K/ L 1.80-8.00 LYMPHOCYTES - ABS (DIFF) (BEAKER) (test jdru=4302) 0.96 K/ L 1.48-4.50 MONOCYTES - ABS (DIFF) (BEAKER) (test dbjd=5689) 0.48 K/ L 0.00-1.30 METAMYELOCTYES - ABS (DIFF) (BEAKER) (test qajv=643) 0.24 K/ L 0.00-0.00 BANDS-ABS (DIFF) (BEAKER) (test rrzu=1575) 2.9 K/ L 0.0-0.8 MYELOCYTES-ABS (DIFF) (BEAKER) (test pvaq=8104) 0.24 K/ L 0.00-0.00 TOTAL COUNTED (BEAKER) (test qahq=1537) 100 BANDS + SEGMENTED NEUTROPHILS (BEAKER) (test zawh=1494) 21.99 WBC MORPHOLOGY (BEAKER) (test swaj=248) Normal PLT MORPHOLOGY (BEAKER) (test spzq=390) Normal HYPOCHROMIA (BEAKER) (test plgv=113) 2+ moderate POIKILOCYTES (BEAKER) (test bgpq=991) 1+ few POCT-LACTIC ACID, [id number] 22:25:00* Test Item Value Reference Range Comments POC-LACTIC ACID, VENOUS (BEAKER) (test wirf=9968) 6.0 mmol/L 0.9-1.7 TESTED AT [address] [address] POCT-BLOOD GASES, [id number] 22:19:00* Test Item Value Reference Range Comments TEMP, CELSIUS-POC (BEAKER) (test qktk=2956) 38.3 FIO2-POC (BEAKER) (test lgbu=8732) 32 TESTED AT [address] [address] PH, VENOUS-POC (BEAKER) (test apnr=5045) 7.377 7.320-7.420 PCO2, VENOUS-POC (BEAKER) (test pqbg=6722) 29.1 mm Hg 41.0-51.0 PO2, VENOUS-POC (BEAKER) (test wonm=6280) 57.0 mm Hg 25.0-40.0 SO2, VENOUS-POC (BEAKER) (test akbw=8755) 87.0 % 40.0-70.0 HCO3, VENOUS-POC (BEAKER) (test tyzp=3794) 16.9 meq/L 21.0-29.0 BASE EXCESS, VENOUS-POC (BEAKER) (test gdhh=5426) -8.0 meq/L -2.0-3.0 [id number] 22:19:00* Test Item Value Reference Range Comments POC-SODIUM (BEAKER) (test qvhh=3833) 136 meq/L 135-148 TESTED AT [address] [address] [id number] 22:19:00* Test Item Value Reference Range Comments POC-POTASSIUM (BEAKER) (test wtkj=5915) 3.9 meq/L 3.6-5.5 TESTED AT [address] [address] [id number] 22:19:00* Test Item Value Reference Range Comments POC-GLUCOSE (BEAKER) (test bfvz=7915) 337 mg/dL 70-110 TESTED AT [address] [address] POCT-CALCIUM [id number] 22:19:00* Test Item Value Reference Range Comments POC-CALCIUM IONIZED (BEAKER) (test tmsy=2047) 1.13 mmol/L 1.12-1.27 TESTED AT [address] [address] [id number] 22:19:00* Test Item Value Reference Range Comments POC-HEMATOCRIT (BEAKER) (test hnnc=2910) 33 % 36-45 TESTED AT [address] [address] [id number] 22:19:00* Test Item Value Reference Range Comments POC-HEMOGLOBIN (BEAKER) (test duon=3698) 11.2 g/dL 12.0-15.0 TESTED AT [address] [address] POCT-GLUCOSE [id number] 21:13:00* Test Item Value Reference Range Comments POC-GLUCOSE METER (BEAKER) (test benb=4631) 360 mg/dL 70-110 Notified JUAN WILSON/TESTED AT [address] [address] HEMOGLOBIN AND [id number] 21:09:00* Test Item Value Reference Range Comments HEMOGLOBIN (BEAKER) (test xfwc=472) 11.1 GM/DL 12.0-15.0 HEMATOCRIT (BEAKER) (test vdse=666) 34.3 % 36.0-45.0 LACTIC ACID, VENOUS, WHOLE [id number] 21:02:00* Test Item Value Reference Range Comments LACTATE BLOOD VENOUS (2) (BEAKER) (test nuxf=2455) 5.5 mmol/L 0.5-2.2 Effective 10/06/2015: Units/Reference Range ChangeNew: 0.5-2.2 mmol/L Previous: 5 -20 mg/dLLACTIC ACID, VENOUS, WHOLE [id number] 18:43:00* Test Item Value Reference Range Comments LACTATE BLOOD VENOUS (2) (BEAKER) (test bqpl=6546) 4.5 mmol/L 0.5-2.2 Effective 10/06/2015: Units/Reference Range ChangeNew: 0.5-2.2 mmol/L Previous: 5 -20 mg/dLPOCT-GLUCOSE [id number] 18:12:00* Test Item Value Reference Range Comments POC-GLUCOSE METER (BEAKER) (test fmmm=5885) 241 mg/dL 70-110 TESTED AT [facility] [address] [facility] [address] LACTIC ACID, VENOUS, WHOLE [id number] 17:06:00* Test Item Value Reference Range Comments LACTATE BLOOD VENOUS (2) (BEAKER) (test duxm=2265) 2.9 mmol/L 0.5-2.2 Effective 10/06/2015: Units/Reference Range ChangeNew: 0.5-2.2 mmol/L Previous: 5 -18 mg/dLLACTIC ACID, VENOUS, WHOLE [id number] 15:15:00* Test Item Value Reference Range Comments LACTATE BLOOD VENOUS (2) (BEAKER) (test znms=1851) 2.9 mmol/L 0.5-2.2 Effective 10/06/2015: Units/Reference Range ChangeNew: 0.5-2.2 mmol/L Previous: 5 -18 mg/dLURINALYSIS W/ [id number] 13:57:00* Test Item Value Reference Range Comments COLOR (BEAKER) (test agxv=772) Yellow CLARITY (BEAKER) (test usia=483) Cloudy SPECIFIC GRAVITY UA (BEAKER) (test edhh=294) 1.025 1.001-1.035 PH UA (BEAKER) (test wtuh=702) 6.0 5.0-8.0 PROTEIN UA (BEAKER) (test fvfd=158) 30 mg/dL Negative GLUCOSE UA (BEAKER) (test cipx=937) 100 mg/dL Negative KETONES UA (BEAKER) (test zgxv=895) Negative Negative BILIRUBIN UA (BEAKER) (test esyg=002) Negative Negative BLOOD UA (BEAKER) (test giwp=831) Small Negative NITRITE UA (BEAKER) (test zytz=579) Negative Negative LEUKOCYTE ESTERASE UA (BEAKER) (test rznt=523) Small Negative UROBILINOGEN UA (BEAKER) (test mypv=384) 0.2 mg/dL 0.2-1.0 BACTERIA (BEAKER) (test exai=273) Many RBC UA-MANUAL (BEAKER) (test omkp=6835) 10-20 /HPF WBC UA-MANUAL (BEAKER) (test ldmi=0228) 50-100 /HPF SQUAMOUS EPITHELIAL MANUAL (BEAKER) (test jfty=2897) 5-10 /HPF SOURCE(BEAKER) (test xamk=7005) SCREEN, [id number] 13:52:00* Test Item Value Reference Range Comments TEST URINE (BEAKER) (test omnt=111) Negative RAPID TROPONIN [id number] 13:51:00* Test Item Value Reference Range Comments RAPID TROPONIN I (BEAKER) (test mlda=8305) < ng/mL <0.05 COMPREHENSIVE METABOLIC [id number] 13:37:00* Test Item Value Reference Range Comments TOTAL PROTEIN (BEAKER) (test maxs=741) 8.1 gm/dL 6.0-8.5 ALBUMIN (BEAKER) (test jmul=5916) 4.3 g/dL 3.5-5.0 ALKALINE PHOSPHATASE (BEAKER) (test tztd=560) 165 U/L 30-115 BILIRUBIN TOTAL (BEAKER) (test lgjc=471) 0.5 mg/dL 0.1-1.2 SODIUM (BEAKER) (test zaqq=633) 138 meq/L 135-148 POTASSIUM (BEAKER) (test ixha=294) 4.3 meq/L 3.6-5.5 CHLORIDE (BEAKER) (test kvxg=088) 98 meq/L 98-106 CO2 (BEAKER) (test tvjp=281) 21 meq/L 24-32 BLOOD UREA NITROGEN (BEAKER) (test eygs=485) 10 mg/dL 10-26 CREATININE (BEAKER) (test dryj=444) 0.66 mg/dL 0.50-1.20 GLUCOSE RANDOM (BEAKER) (test vudp=994) 183 mg/dL 70-110 CALCIUM (BEAKER) (test dnjm=076) 9.4 mg/dL 8.5-10.5 AST (SGOT) (BEAKER) (test ptfs=483) 42 U/L 5-40 ALT (SGPT) (BEAKER) (test mvqc=466) 42 U/L 5-50 EGFR (BEAKER) (test xora=0684) 100 mL/min/1.73 sq m ESTIMATED GFR IS NOT ACCURATE CREATININE CLEARANCE IN PREDICTING GLOMERULAR FILTRATION RATE. ESTIMATED GFR IS NOT APPLICABLE FOR DIALYSIS PATIENTS. [id number] 13:37:00* Test Item Value Reference Range Comments LIPASE (BEAKER) (test nrzv=321) 75 U/L 40-240 LACTIC ACID, VENOUS, WHOLE [id number] 13:35:00* Test Item Value Reference Range Comments LACTATE BLOOD VENOUS (2) (BEAKER) (test opuy=1947) 4.3 mmol/L 0.5-2.2 Effective 10/06/2015: Units/Reference Range ChangeNew: 0.5-2.2 mmol/L Previous: 5 -18 mg/dLCBC W/PLT COUNT & AUTO [id number] 13:32:00* Test Item Value Reference Range Comments WHITE BLOOD CELL COUNT (BEAKER) (test uqkb=479) 14.0 10e3/ L 4.0-10.0 RED BLOOD CELL COUNT (BEAKER) (test jzka=744) 5.20 10e6/ L 4.00-5.00 HEMOGLOBIN (BEAKER) (test rcqg=698) 12.4 g/dL 12.0-15.0 HEMATOCRIT (BEAKER) (test avoq=795) 40.8 % 36.0-45.0 MEAN CORPUSCULAR VOLUME (BEAKER) (test rdib=181) 78.4 fL 82.0-99.0 MEAN CORPUSCULAR HEMOGLOBIN (BEAKER) (test sezp=439) 23.8 pg 27.0-33.0 MEAN CORPUSCULAR HEMOGLOBIN CONC (BEAKER) (test rtre=821) 30.4 g/dL 32.0-36.0 RED CELL DISTRIBUTION WIDTH (BEAKER) (test yngb=957) 20.4 % 10.3-14.2 PLATELET COUNT (BEAKER) (test mpjp=353) 521 10e3/ L 150-430 MEAN PLATELET VOLUME (BEAKER) (test bhdq=551) 8.2 fL 6.5-10.5 NEUTROPHILS RELATIVE PERCENT (BEAKER) (test gwkv=387) 87 % LYMPHOCYTES RELATIVE PERCENT (BEAKER) (test vhmp=188) 9 % MONOCYTES RELATIVE PERCENT (BEAKER) (test nsmo=729) 2 % EOSINOPHILS RELATIVE PERCENT (BEAKER) (test jwes=669) 2 % BASOPHILS RELATIVE PERCENT (BEAKER) (test hbqv=290) 0 % NEUTROPHILS ABSOLUTE COUNT (BEAKER) (test fqdt=683) 12.24 10e3/ L 1.80-8.00 LYMPHOCYTES ABSOLUTE COUNT (BEAKER) (test cpfp=070) 1.26 10e3/ L 1.48-4.50 MONOCYTES ABSOLUTE COUNT (BEAKER) (test dklb=092) 0.25 10e3/ L 0.00-1.30 EOSINOPHILS ABSOLUTE COUNT (BEAKER) (test xqwo=830) 0.22 10e3/ L 0.00-0.50 BASOPHILS ABSOLUTE COUNT (BEAKER) (test phlj=199) 0.06 10e3/ L 0.00-0.20 BLOOD GAS, [id number] 13:30:00* Test Item Value Reference Range Comments PH VENOUS (BEAKER) (test mkad=989) 7.42 7.32-7.42 PCO2 VENOUS (BEAKER) (test zreb=079) 35 mm Hg 41-51 PO2 VENOUS (BEAKER) (test gjxm=566) 29 mm Hg 25-40 O2 SATURATION VENOUS (BEAKER) (test crdc=706) 57.4 % 40.0-70.0 HCO3 VENOUS (BEAKER) (test dlnq=103) 22 mmol/L 21-29 BASE EXCESS VENOUS (BEAKER) (test gvrv=823) -1.6 mmol/L -2.0-3.0 SEDIMENTATION [id number] 15:24:00* Test Item Value Reference Range Comments SEDIMENTATION RATE, ERYTHROCYTE (BEAKER) (test cuaq=381) 39 mm/HR 0-20 POCT-GLUCOSE [id number] 12:32:00* Test Item Value Reference Range Comments POC-GLUCOSE METER (BEAKER) (test homc=6878) 339 mg/dL 70-110 TESTED AT [facility] [address] [facility] [address] POCT-GLUCOSE [id number] 08:21:00* Test Item Value Reference Range Comments POC-GLUCOSE METER (BEAKER) (test gvie=1454) 327 mg/dL 70-110 TESTED AT [facility] [address] [facility] [address] CBC W/PLT COUNT & AUTO [id number] 07:27:00* Test Item Value Reference Range Comments WHITE BLOOD CELL COUNT (BEAKER) (test fdmb=933) 17.0 K/ L 4.0-10.0 RED BLOOD CELL COUNT (BEAKER) (test wbbi=105) 3.87 M/ L 4.00-5.00 HEMOGLOBIN (BEAKER) (test bbxk=679) 8.7 GM/DL 12.0-15.0 HEMATOCRIT (BEAKER) (test dpfd=252) 29.4 % 36.0-45.0 MEAN CORPUSCULAR VOLUME (BEAKER) (test fhxt=416) 76.0 fL 82.0-99.0 MEAN CORPUSCULAR HEMOGLOBIN (BEAKER) (test yyfh=523) 22.6 pg 27.0-33.0 MEAN CORPUSCULAR HEMOGLOBIN CONC (BEAKER) (test nywf=347) 29.7 GM/DL 32.0-36.0 RED CELL DISTRIBUTION WIDTH (BEAKER) (test bvps=960) 17.1 % 10.3-14.2 PLATELET COUNT (BEAKER) (test ncnz=460) 516 K/CU MM 150-430 MEAN PLATELET VOLUME (BEAKER) (test lsem=990) 8.0 fL 6.5-10.5 NUCLEATED RED BLOOD CELLS (BEAKER) (test rqbw=233) 0 /100 WBC 0-0 NEUTROPHILS RELATIVE PERCENT (BEAKER) (test grip=286) 88 % LYMPHOCYTES RELATIVE PERCENT (BEAKER) (test apef=236) 11 % MONOCYTES RELATIVE PERCENT (BEAKER) (test qvgn=273) 2 % EOSINOPHILS RELATIVE PERCENT (BEAKER) (test hgky=714) 0 % BASOPHILS RELATIVE PERCENT (BEAKER) (test sobd=857) 0 % NEUTROPHILS ABSOLUTE COUNT (BEAKER) (test jvph=286) 14.90 K/ L 1.80-8.00 LYMPHOCYTES ABSOLUTE COUNT (BEAKER) (test xobk=569) 1.79 K/ L 1.48-4.50 MONOCYTES ABSOLUTE COUNT (BEAKER) (test nszn=349) 0.26 K/ L 0.00-1.30 EOSINOPHILS ABSOLUTE COUNT (BEAKER) (test xpja=628) 0.04 K/ L 0.00-0.50 BASOPHILS ABSOLUTE COUNT (BEAKER) (test opkp=381) 0.04 K/ L 0.00-0.20 0.00BASI METABOLIC [id number] 06:52:00* Test Item Value Reference Range Comments SODIUM (BEAKER) (test xonq=776) 135 meq/L 136-145 POTASSIUM (BEAKER) (test uoen=782) 4.5 meq/L 3.5-5.1 CHLORIDE (BEAKER) (test cusf=359) 103 meq/L 98-107 CO2 (BEAKER) (test qlgh=750) 22 meq/L 22-29 BLOOD UREA NITROGEN (BEAKER) (test qlia=239) 16 mg/dL 7-21 CREATININE (BEAKER) (test lpzw=823) 0.87 mg/dL 0.57-1.25 GLUCOSE RANDOM (BEAKER) (test ggxm=453) 438 mg/dL 70-105 CALCIUM (BEAKER) (test qktk=050) 9.1 mg/dL 8.4-10.2 EGFR (BEAKER) (test ivet=7493) 73 mL/min/1.73 sq m ESTIMATED GFR IS NOT ACCURATE CREATININE CLEARANCE IN PREDICTING GLOMERULAR FILTRATION RATE. ESTIMATED GFR IS NOT APPLICABLE FOR DIALYSIS PATIENTS. PROTHROMBIN TIME/[id number] 06:20:00* Test Item Value Reference Range Comments PROTIME (BEAKER) (test qoll=536) 14.0 seconds 11.7-14.7 INR (BEAKER) (test gcjl=719) 1.1 <=5.9 RECOMMENDED COUMADIN/WARFARIN INR THERAPY RANGESSTANDARD DOSE: 2.0 - 3.0 Inclu jm: PROPHYLAXIS for venous thrombosis, systemic embolization; TREATMENT for kamar ous thrombosis and/or pulmonary embolus.HIGH RISK: Target INR is 2.5-3.5 for pat ients with mechanical heart valves.POCT-GLUCOSE [id number] 22:25:00* Test Item Value Reference Range Comments POC-GLUCOSE METER (BEAKER) (test ojgf=2665) 331 mg/dL 70-110 Notified JUAN WILSON/TESTED AT [facility] [address] [facility] [address] POCT-GLUCOSE [id number] 16:48:00* Test Item Value Reference Range Comments POC-GLUCOSE METER (BEAKER) (test yzkh=4926) 240 mg/dL 70-110 TESTED AT [facility] [address] [facility] [address] HEMOGLOBIN AND [id number] 16:30:00* Test Item Value Reference Range Comments HEMOGLOBIN (BEAKER) (test uxub=399) 8.1 GM/DL 12.0-15.0 HEMATOCRIT (BEAKER) (test fwfx=466) 27.1 % 36.0-45.0 POCT-GLUCOSE [id number] 12:10:00* Test Item Value Reference Range Comments POC-GLUCOSE METER (BEAKER) (test hnwg=5532) 244 mg/dL 70-110 TESTED AT [facility] [address] [facility] [address] CBC W/PLT COUNT & AUTO [id number] 08:49:00* Test Item Value Reference Range Comments WHITE BLOOD CELL COUNT (BEAKER) (test yvez=786) 12.6 K/ L 4.0-10.0 RED BLOOD CELL COUNT (BEAKER) (test bcba=554) 3.51 M/ L 4.00-5.00 HEMOGLOBIN (BEAKER) (test exru=197) 7.7 GM/DL 12.0-15.0 HEMATOCRIT (BEAKER) (test dcip=374) 27.1 % 36.0-45.0 MEAN CORPUSCULAR VOLUME (BEAKER) (test xqha=226) 77.1 fL 82.0-99.0 MEAN CORPUSCULAR HEMOGLOBIN (BEAKER) (test sxvk=287) 22.0 pg 27.0-33.0 MEAN CORPUSCULAR HEMOGLOBIN CONC (BEAKER) (test dtvy=537) 28.5 GM/DL 32.0-36.0 RED CELL DISTRIBUTION WIDTH (BEAKER) (test becq=888) 16.7 % 10.3-14.2 PLATELET COUNT (BEAKER) (test pzaj=014) 471 K/CU MM 150-430 MEAN PLATELET VOLUME (BEAKER) (test evse=168) 8.1 fL 6.5-10.5 NUCLEATED RED BLOOD CELLS (BEAKER) (test vioz=867) 0 /100 WBC 0-0 NEUTROPHILS RELATIVE PERCENT (BEAKER) (test sieq=069) 63 % LYMPHOCYTES RELATIVE PERCENT (BEAKER) (test dpvx=608) 25 % MONOCYTES RELATIVE PERCENT (BEAKER) (test kdki=360) 9 % EOSINOPHILS RELATIVE PERCENT (BEAKER) (test wfnh=281) 3 % BASOPHILS RELATIVE PERCENT (BEAKER) (test xjxh=518) 0 % NEUTROPHILS ABSOLUTE COUNT (BEAKER) (test bofi=143) 7.95 K/ L 1.80-8.00 LYMPHOCYTES ABSOLUTE COUNT (BEAKER) (test ixwp=154) 3.14 K/ L 1.48-4.50 MONOCYTES ABSOLUTE COUNT (BEAKER) (test sijq=595) 1.07 K/ L 0.00-1.30 EOSINOPHILS ABSOLUTE COUNT (BEAKER) (test bgib=849) 0.37 K/ L 0.00-0.50 BASOPHILS ABSOLUTE COUNT (BEAKER) (test xjjt=247) 0.05 K/ L 0.00-0.20 0.00POCT-GLUCOSE [id number] 08:34:00* Test Item Value Reference Range Comments POC-GLUCOSE METER (BEAKER) (test iktf=9251) 232 mg/dL 70-110 TESTED AT [facility] [address] [facility] [address] TROPONIN [id number] 07:36:00* Test Item Value Reference Range Comments TROPONIN I (BEAKER) (test ekvq=136) < ng/mL 0.00-0.03 Effective 04/21/2014: Reference Range ChangeNew: 0.00-0.03 Previous 0.00-0.15T roponin I (TnI) levels must be interpreted in the context of the presenting symp toms and the clinical findings. Elevated TnI levels indicate myocardial damage, but are not specific for ischemic heart disease. Elevated TnI levels are seen in patients with other cardiac conditions (including myocarditis and congestive he art failure), and slight TnI elevations occur in patients with other conditions, including sepsis, renal failure, acidosis, acute neurological disease, and pers istent tachyarrhythmia.BASIC METABOLIC [id number] 07:28:00* Test Item Value Reference Range Comments SODIUM (BEAKER) (test ytfg=585) 134 meq/L 136-145 POTASSIUM (BEAKER) (test jerb=943) 4.2 meq/L 3.5-5.1 Specimen slightly hemolyzed CHLORIDE (BEAKER) (test scjd=670) 104 meq/L 98-107 CO2 (BEAKER) (test epuy=954) 21 meq/L 22-29 BLOOD UREA NITROGEN (BEAKER) (test whpt=967) 15 mg/dL 7-21 CREATININE (BEAKER) (test wiig=745) 0.76 mg/dL 0.57-1.25 Specimen slightly hemolyzed GLUCOSE RANDOM (BEAKER) (test sjgc=985) 211 mg/dL 70-105 CALCIUM (BEAKER) (test ycfa=246) 8.4 mg/dL 8.4-10.2 EGFR (VIKTORIAAKER) (test gdkh=0755) 85 mL/min/1.73 sq m ESTIMATED GFR IS NOT ACCURATE CREATININE CLEARANCE IN PREDICTING GLOMERULAR FILTRATION RATE. ESTIMATED GFR IS NOT APPLICABLE FOR DIALYSIS PATIENTS. LIPID [id number] 07:28:00* Test Item Value Reference Range Comments TRIGLYCERIDES (EDY) (test gekm=995) 61 mg/dL Specimen slightly hemolyzed CHOLESTEROL (BEAKER) (test uefy=365) 78 mg/dL Specimen slightly hemolyzed HDL CHOLESTEROL (BEAKER) (test gypu=312) 20 mg/dL LDL CHOLESTEROL CALCULATED (VIKTORIAAKER) (test hanl=920) 46 mg/dL Triglyceride Reference Range: Low Risk <150 Borderline 150-199 High Risk 200-499 Very High Risk >=500Cholesterol Reference Range: Low Risk <200 Borderline 200-239 High Risk >240HDL Cholesterol Reference Range: Low Risk >=60 High Risk <40LDL Cholesterol Reference Range: Optimal <100 Near Optimal 100-129 Borderline 130-159 High 160-189 Very High >=190 PROTHROMBIN [id number] 07:20:00* Test Item Value Reference Range Comments PROTIME (EDY) (test fhsi=926) 14.6 seconds 11.7-14.7 INR (EDY) (test gulc=987) 1.2 <=5.9 RECOMMENDED COUMADIN/WARFARIN INR THERAPY RANGESSTANDARD DOSE: 2.0 - 3.0 Inclu jm: PROPHYLAXIS for venous thrombosis, systemic embolization; TREATMENT for kamar ous thrombosis and/or pulmonary embolus.HIGH RISK: Target INR is 2.5-3.5 for pat ients with mechanical heart valves.POCT-GLUCOSE [id number] 23:52:00* Test Item Value Reference Range Comments POC-GLUCOSE METER (EDY) (test iitc=0722) 289 mg/dL 70-110 TESTED AT [facility] [address] [facility] [address] B-TYPE NATRIURETIC FACTOR (BNP)2016-09-22 22:52:00* Test Item Value Reference Range Comments B-TYPE NATRIURETIC PEPTIDE (EDY) (test rjvj=425) 28 pg/mL 0-100 CREATINE KINASE (CK), TOTAL AND [id number] 21:44:00* Test Item Value Reference Range Comments CREATINE KINASE TOTAL (BEAKER) (test mfov=375) 59 U/L 29-200 CREATINE KINASE-MB (BEAKER) (test jrtw=071) 0.8 ng/mL 0.0-6.6 CREATINE KINASE-MB INDEX (BEAKER) (test gltt=522) 1.4 % Effective 04/21/2014: CK-MB Reference Range ChangeNew: 0.0-6.6 Previous: 0.0- 4.9CK-MB Reference Range:<6.7 Normal6.7-10.0 Borderline>10.0 Abnormal TROPONIN [id number] 21:44:00* Test Item Value Reference Range Comments TROPONIN I (BEAKER) (test gvgy=378) 0.01 ng/mL 0.00-0.03 Effective 04/21/2014: Reference Range ChangeNew: 0.00-0.03 Previous 0.00-0.15T roponin I (TnI) levels must be interpreted in the context of the presenting symp toms and the clinical findings. Elevated TnI levels indicate myocardial damage, but are not specific for ischemic heart disease. Elevated TnI levels are seen in patients with other cardiac conditions (including myocarditis and congestive he art failure), and slight TnI elevations occur in patients with other conditions, including sepsis, renal failure, acidosis, acute neurological disease, and pers istent tachyarrhythmia.CBC W/PLT COUNT & AUTO [id number] 21:38:00* Test Item Value Reference Range Comments WHITE BLOOD CELL COUNT (BEAKER) (test ieok=944) 14.9 K/ L 4.0-10.0 RED BLOOD CELL COUNT (BEAKER) (test bqby=332) 3.84 M/ L 4.00-5.00 HEMOGLOBIN (BEAKER) (test ypsr=508) 8.6 GM/DL 12.0-15.0 HEMATOCRIT (BEAKER) (test pqhq=837) 29.1 % 36.0-45.0 MEAN CORPUSCULAR VOLUME (BEAKER) (test hgsm=920) 75.7 fL 82.0-99.0 MEAN CORPUSCULAR HEMOGLOBIN (BEAKER) (test raec=673) 22.4 pg 27.0-33.0 MEAN CORPUSCULAR HEMOGLOBIN CONC (BEAKER) (test ctvl=013) 29.6 GM/DL 32.0-36.0 RED CELL DISTRIBUTION WIDTH (BEAKER) (test lmhu=227) 16.5 % 10.3-14.2 PLATELET COUNT (BEAKER) (test hono=118) 528 K/CU MM 150-430 MEAN PLATELET VOLUME (BEAKER) (test xque=138) 7.8 fL 6.5-10.5 NUCLEATED RED BLOOD CELLS (BEAKER) (test ntgw=158) 0 /100 WBC 0-0 NEUTROPHILS RELATIVE PERCENT (BEAKER) (test gouy=700) 67 % LYMPHOCYTES RELATIVE PERCENT (BEAKER) (test izfd=132) 22 % MONOCYTES RELATIVE PERCENT (BEAKER) (test qabv=985) 8 % EOSINOPHILS RELATIVE PERCENT (BEAKER) (test nxwp=959) 3 % BASOPHILS RELATIVE PERCENT (BEAKER) (test jisk=341) 1 % NEUTROPHILS ABSOLUTE COUNT (BEAKER) (test aibu=433) 9.99 K/ L 1.80-8.00 LYMPHOCYTES ABSOLUTE COUNT (BEAKER) (test dsib=443) 3.23 K/ L 1.48-4.50 MONOCYTES ABSOLUTE COUNT (BEAKER) (test qhef=693) 1.21 K/ L 0.00-1.30 EOSINOPHILS ABSOLUTE COUNT (BEAKER) (test jgdr=185) 0.40 K/ L 0.00-0.50 BASOPHILS ABSOLUTE COUNT (BEAKER) (test tznt=686) 0.09 K/ L 0.00-0.20 BASIC METABOLIC [id number] 21:38:00* Test Item Value Reference Range Comments SODIUM (BEAKER) (test sgry=859) 139 meq/L 136-145 POTASSIUM (BEAKER) (test bnmd=491) 4.0 meq/L 3.5-5.1 CHLORIDE (BEAKER) (test xrjf=652) 102 meq/L 98-107 CO2 (BEAKER) (test aixs=596) 24 meq/L 22-29 BLOOD UREA NITROGEN (BEAKER) (test ymnv=759) 14 mg/dL 7-21 CREATININE (BEAKER) (test rhbk=673) 0.97 mg/dL 0.57-1.25 GLUCOSE RANDOM (BEAKER) (test qnuh=433) 218 mg/dL 70-105 CALCIUM (BEAKER) (test knnt=223) 9.2 mg/dL 8.4-10.2 EGFR (BEAKER) (test vvli=6034) 64 mL/min/1.73 sq m ESTIMATED GFR IS NOT ACCURATE CREATININE CLEARANCE IN PREDICTING GLOMERULAR FILTRATION RATE. ESTIMATED GFR IS NOT APPLICABLE FOR DIALYSIS PATIENTS. POCT-GLUCOSE [id number] 18:03:00* Test Item Value Reference Range Comments POC-GLUCOSE METER (EDY) (test oktm=2996) 206 mg/dL 70-110 TESTED AT [facility] [address] [facility] [address] T4, [id number] 14:58:00* Test Item Value Reference Range Comments FREE T4 (BEAKER) (test lctv=421) 2.11 ng/dL 0.70-1.48 TSH/FREE T4 IF [id number] 14:26:00* Test Item Value Reference Range Comments THYROID STIMULATING HORMONE (VIKTORIAAKER) (test joqn=746) 0.13 uIU/mL 0.35-4.94 TROPONIN [id number] 14:01:00* Test Item Value Reference Range Comments TROPONIN I (BEAKER) (test tbpm=722) < ng/mL 0.00-0.03 Effective 04/21/2014: Reference Range ChangeNew: 0.00-0.03 Previous 0.00-0.15T roponin I (TnI) levels must be interpreted in the context of the presenting symp toms and the clinical findings. Elevated TnI levels indicate myocardial damage, but are not specific for ischemic heart disease. Elevated TnI levels are seen in patients with other cardiac conditions (including myocarditis and congestive he art failure), and slight TnI elevations occur in patients with other conditions, including sepsis, renal failure, acidosis, acute neurological disease, and pers istent tachyarrhythmia.CBC W/PLT COUNT & AUTO [id number] 13:56:00* Test Item Value Reference Range Comments WHITE BLOOD CELL COUNT (VIKTORIAAKER) (test ncrr=884) 12.6 K/ L 4.0-10.0 RED BLOOD CELL COUNT (BEAKER) (test xilk=525) 3.72 M/ L 4.00-5.00 HEMOGLOBIN (BEAKER) (test wfyh=460) 8.3 GM/DL 12.0-15.0 HEMATOCRIT (BEAKER) (test iwvi=760) 28.1 % 36.0-45.0 MEAN CORPUSCULAR VOLUME (BEAKER) (test idne=390) 75.6 fL 82.0-99.0 MEAN CORPUSCULAR HEMOGLOBIN (BEAKER) (test xczb=482) 22.4 pg 27.0-33.0 MEAN CORPUSCULAR HEMOGLOBIN CONC (BEAKER) (test gkrk=581) 29.6 GM/DL 32.0-36.0 RED CELL DISTRIBUTION WIDTH (BEAKER) (test wlqb=075) 16.3 % 10.3-14.2 PLATELET COUNT (BEAKER) (test cwgk=137) 510 K/CU MM 150-430 MEAN PLATELET VOLUME (BEAKER) (test umhl=793) 7.7 fL 6.5-10.5 NUCLEATED RED BLOOD CELLS (BEAKER) (test lygm=462) 0 /100 WBC 0-0 NEUTROPHILS RELATIVE PERCENT (BEAKER) (test gljl=793) 69 % LYMPHOCYTES RELATIVE PERCENT (BEAKER) (test zych=225) 22 % MONOCYTES RELATIVE PERCENT (BEAKER) (test bgyr=058) 7 % EOSINOPHILS RELATIVE PERCENT (BEAKER) (test gjyv=037) 3 % BASOPHILS RELATIVE PERCENT (BEAKER) (test phmk=857) 0 % NEUTROPHILS ABSOLUTE COUNT (BEAKER) (test vyrk=143) 8.65 K/ L 1.80-8.00 LYMPHOCYTES ABSOLUTE COUNT (BEAKER) (test tejz=316) 2.71 K/ L 1.48-4.50 MONOCYTES ABSOLUTE COUNT (BEAKER) (test erbi=038) 0.86 K/ L 0.00-1.30 EOSINOPHILS ABSOLUTE COUNT (BEAKER) (test eptv=296) 0.32 K/ L 0.00-0.50 BASOPHILS ABSOLUTE COUNT (BEAKER) (test sloe=652) 0.06 K/ L 0.00-0.20 0.00IRON, TIBC, % SAT. (WITHOUT FERRITIN)2016-09-22 13:51:00* Test Item Value Reference Range Comments IRON (BEAKER) (test zdto=699) 66 ug/dL 40-160 TOTAL IRON BINDING CAPACITY (BEAKER) (test shiv=839) 454 ug/dL 250-450 IRON % SATURATION (2) (BEAKER) (test huyx=2575) 15 % 20-55 URINE [id number] 10:34:00* Test Item Value Reference Range Comments CULTURE (BEAKER) (test uzef=3537) ESCHERICHIA COLI >100,000 col/mL Escherichia coli Amikacin (test code=1) Ampicillin + Sulbactam (test code=6) Aztreonam (test code=32) Cefepime (test code=51) Cefoxitin (test code=68) Ceftazidime (test code=27) Ceftriaxone (test code=52) Ertapenem (test code=38) Gentamicin (test code=18) Levofloxacin (test code=22) Meropenem (test code=34) Nitrofurantoin (test code=23) Piperacillin + Tazobactam (test code=29) Tetracycline (test code=2) Tobramycin (test code=25) Trimethoprim + Sulfamethoxazole (test code=47) 10-19,000 col/mL skin floraPOCT-GLUCOSE [id number] 13:27:00* Test Item Value Reference Range Comments POC-GLUCOSE METER (BEViaSat) (test rway=8967) 236 mg/dL 70-110 TESTED AT [address] [address] POCT-GLUCOSE [id number] 08:18:00* Test Item Value Reference Range Comments POC-GLUCOSE METER (Staples) (test xxtn=1497) 233 mg/dL 70-110 TESTED AT [address] [address] BASIC METABOLIC [id number] 07:06:00* Test Item Value Reference Range Comments SODIUM (BEAKER) (test crkm=202) 136 meq/L 136-145 POTASSIUM (BEAKER) (test djch=098) 4.3 meq/L 3.5-5.1 CHLORIDE (BEAKER) (test xdhd=152) 101 meq/L 98-107 CO2 (BEAKER) (test cmee=740) 24 meq/L 22-29 BLOOD UREA NITROGEN (BEAKER) (test npen=742) 15 mg/dL 7-21 CREATININE (BEAKER) (test pzcl=435) 0.91 mg/dL 0.57-1.25 GLUCOSE RANDOM (BEAKER) (test gbiz=397) 216 mg/dL 70-105 CALCIUM (BEAKER) (test jili=470) 8.7 mg/dL 8.4-10.2 EGFR (BEAKER) (test kmwb=6281) 69 mL/min/1.73 sq m ESTIMATED GFR IS NOT ACCURATE CREATININE CLEARANCE IN PREDICTING GLOMERULAR FILTRATION RATE. ESTIMATED GFR IS NOT APPLICABLE FOR DIALYSIS PATIENTS. CBC W/PLT COUNT & AUTO [id number] 06:42:00* Test Item Value Reference Range Comments WHITE BLOOD CELL COUNT (BEAKER) (test llho=197) 11.7 K/ L 4.0-10.0 RED BLOOD CELL COUNT (BEAKER) (test sqtx=944) 3.62 M/ L 4.00-5.00 HEMOGLOBIN (BEAKER) (test yvsp=371) 8.6 GM/DL 12.0-15.0 HEMATOCRIT (BEAKER) (test mkdi=324) 27.8 % 36.0-45.0 MEAN CORPUSCULAR VOLUME (BEAKER) (test migr=483) 77.0 fL 82.0-99.0 MEAN CORPUSCULAR HEMOGLOBIN (BEAKER) (test vpwb=240) 23.8 pg 27.0-33.0 MEAN CORPUSCULAR HEMOGLOBIN CONC (BEAKER) (test ssqr=409) 30.8 GM/DL 32.0-36.0 RED CELL DISTRIBUTION WIDTH (BEAKER) (test plek=222) 16.6 % 10.3-14.2 PLATELET COUNT (BEAKER) (test hgay=243) 456 K/CU MM 150-430 MEAN PLATELET VOLUME (BEAKER) (test ztvf=266) 8.1 fL 6.5-10.5 NUCLEATED RED BLOOD CELLS (BEAKER) (test yzoo=391) 0 /100 WBC 0-0 NEUTROPHILS RELATIVE PERCENT (BEAKER) (test kzvw=449) 70 % LYMPHOCYTES RELATIVE PERCENT (BEAKER) (test gvvr=572) 21 % MONOCYTES RELATIVE PERCENT (BEAKER) (test burz=009) 6 % EOSINOPHILS RELATIVE PERCENT (BEAKER) (test lenj=721) 3 % BASOPHILS RELATIVE PERCENT (BEAKER) (test thjn=899) 1 % NEUTROPHILS ABSOLUTE COUNT (BEAKER) (test phrw=996) 8.19 K/ L 1.80-8.00 LYMPHOCYTES ABSOLUTE COUNT (BEAKER) (test gffx=238) 2.47 K/ L 1.48-4.50 MONOCYTES ABSOLUTE COUNT (BEAKER) (test tbel=597) 0.68 K/ L 0.00-1.30 EOSINOPHILS ABSOLUTE COUNT (BEAKER) (test zlkq=537) 0.34 K/ L 0.00-0.50 BASOPHILS ABSOLUTE COUNT (BEAKER) (test nlkm=662) 0.06 K/ L 0.00-0.20 0.00POCT-GLUCOSE [id number] 21:17:00* Test Item Value Reference Range Comments POC-GLUCOSE METER (BEAKER) (test asaz=0250) 273 mg/dL 70-110 TESTED AT [place] [id number] [facility] [address] POCT-GLUCOSE [id number] 17:35:00* Test Item Value Reference Range Comments POC-GLUCOSE METER (BEAKER) (test sxhe=1043) 246 mg/dL 70-110 TESTED AT [address] [address] URINALYSIS W/ [id number] 15:03:00* Test Item Value Reference Range Comments COLOR (BEAKER) (test rtsm=371) [place] CLARITY (BEAKER) (test nxng=825) Hazy SPECIFIC GRAVITY UA (BEAKER) (test grck=461) 1.010 1.001-1.035 PH UA (BEAKER) (test crgy=346) 6.5 5.0-8.0 PROTEIN UA (BEAKER) (test vemr=176) 100 mg/dL Negative GLUCOSE UA (BEAKER) (test alik=658) Negative Negative KETONES UA (BEAKER) (test cmua=343) Negative Negative BILIRUBIN UA (BEAKER) (test kprk=262) Negative Negative BLOOD UA (BEAKER) (test gjjp=240) Large Negative NITRITE UA (BEAKER) (test irjb=309) Positive Negative LEUKOCYTE ESTERASE UA (BEAKER) (test zpmy=451) Small Negative UROBILINOGEN UA (BEAKER) (test rydl=665) 0.2 mg/dL 0.2-1.0 RBC UA (BEAKER) (test qxig=380) > /HPF WBC UA (BEAKER) (test jiib=781) 1 /HPF SQUAMOUS EPITHELIAL (BEAKER) (test vmhf=913) 2 /HPF SOURCE(BEAKER) (test ivlj=3750) CBC W/PLT COUNT & AUTO [id number] 13:52:00* Test Item Value Reference Range Comments WHITE BLOOD CELL COUNT (BEAKER) (test mixe=692) 12.4 K/ L 4.0-10.0 RED BLOOD CELL COUNT (BEAKER) (test ujgi=652) 3.84 M/ L 4.00-5.00 HEMOGLOBIN (BEAKER) (test htix=945) 9.0 GM/DL 12.0-15.0 HEMATOCRIT (BEAKER) (test mrpk=957) 30.0 % 36.0-45.0 MEAN CORPUSCULAR VOLUME (BEAKER) (test vzmk=739) 78.0 fL 82.0-99.0 MEAN CORPUSCULAR HEMOGLOBIN (BEAKER) (test rvta=694) 23.4 pg 27.0-33.0 MEAN CORPUSCULAR HEMOGLOBIN CONC (BEAKER) (test zgry=019) 30.0 GM/DL 32.0-36.0 RED CELL DISTRIBUTION WIDTH (BEAKER) (test tmcp=678) 17.6 % 10.3-14.2 PLATELET COUNT (BEAKER) (test ldnm=783) 461 K/CU MM 150-430 MEAN PLATELET VOLUME (BEAKER) (test gcrg=975) 8.0 fL 6.5-10.5 NUCLEATED RED BLOOD CELLS (BEAKER) (test tzgu=153) 0 /100 WBC 0-0 NEUTROPHILS RELATIVE PERCENT (BEAKER) (test fssg=422) 68 % LYMPHOCYTES RELATIVE PERCENT (BEAKER) (test ulxl=380) 22 % MONOCYTES RELATIVE PERCENT (BEAKER) (test ajbb=920) 6 % EOSINOPHILS RELATIVE PERCENT (BEAKER) (test fyap=923) 2 % BASOPHILS RELATIVE PERCENT (BEAKER) (test osnn=500) 1 % NEUTROPHILS ABSOLUTE COUNT (BEAKER) (test qiem=798) 8.44 K/ L 1.80-8.00 LYMPHOCYTES ABSOLUTE COUNT (BEAKER) (test bdhw=063) 2.78 K/ L 1.48-4.50 MONOCYTES ABSOLUTE COUNT (BEAKER) (test yvut=840) 0.78 K/ L 0.00-1.30 EOSINOPHILS ABSOLUTE COUNT (BEAKER) (test iigh=728) 0.30 K/ L 0.00-0.50 BASOPHILS ABSOLUTE COUNT (BEAKER) (test nhke=604) 0.13 K/ L 0.00-0.20 [id number] 13:50:00* Test Item Value Reference Range Comments FERRITIN (BEAKER) (test kcbq=152) 9 ng/mL 5-275 Effective 04/21/2014: Reference Range ChangeNew: Male 5-275 Previous: Male 22-322 Female 5-275 Female 10-291 POCT-GLUCOSE [id number] 11:48:00* Test Item Value Reference Range Comments POC-GLUCOSE METER (BEAKER) (test zzpv=7856) 205 mg/dL 70-110 TESTED AT [facility] [address] [facility] [address] TROPONIN [id number] 11:25:00* Test Item Value Reference Range Comments TROPONIN I (BEAKER) (test akms=821) 1.19 ng/mL 0.00-0.03 Effective 04/21/2014: Reference Range ChangeNew: 0.00-0.03 Previous 0.00-0.15T roponin I (TnI) levels must be interpreted in the context of the presenting symp toms and the clinical findings. Elevated TnI levels indicate myocardial damage, but are not specific for ischemic heart disease. Elevated TnI levels are seen in patients with other cardiac conditions (including myocarditis and congestive he art failure), and slight TnI elevations occur in patients with other conditions, including sepsis, renal failure, acidosis, acute neurological disease, and pers istent tachyarrhythmia.IRON, TIBC, % SAT. (WITHOUT FERRITIN)2016-08-27 11:23:00 * Test Item Value Reference Range Comments IRON (BEAKER) (test tuid=227) 16 ug/dL 40-160 TOTAL IRON BINDING CAPACITY (BEAKER) (test vpqc=042) 499 ug/dL 250-450 IRON % SATURATION (2) (BEAKER) (test eqxt=2644) 3 % 20-55 B-TYPE NATRIURETIC FACTOR (BNP)2016-08-27 11:14:00* Test Item Value Reference Range Comments B-TYPE NATRIURETIC PEPTIDE (BEAKER) (test ofvc=605) 109 pg/mL 0-100 BASIC METABOLIC [id number] 11:05:00* Test Item Value Reference Range Comments SODIUM (BEAKER) (test nhdi=909) 135 meq/L 136-145 POTASSIUM (BEAKER) (test khcu=039) 4.2 meq/L 3.5-5.1 CHLORIDE (BEAKER) (test vylr=721) 102 meq/L 98-107 CO2 (BEAKER) (test qinc=615) 21 meq/L 22-29 BLOOD UREA NITROGEN (BEAKER) (test obrh=429) 15 mg/dL 7-21 CREATININE (BEAKER) (test acik=347) 0.95 mg/dL 0.57-1.25 GLUCOSE RANDOM (BEAKER) (test vahy=818) 203 mg/dL 70-105 CALCIUM (BEAKER) (test wpnz=427) 8.6 mg/dL 8.4-10.2 EGFR (BEAKER) (test jlsm=9417) 66 mL/min/1.73 sq m ESTIMATED GFR IS NOT ACCURATE CREATININE CLEARANCE IN PREDICTING GLOMERULAR FILTRATION RATE. ESTIMATED GFR IS NOT APPLICABLE FOR DIALYSIS PATIENTS. PLATELET AGGREGATION: FUNCTION [id number] 08:37:00* Test Item Value Reference Range Comments WEAK ADP RESULT(BEAKER) (test fwew=2059) < % 60-91 PLATELET FUNCTION SCREEN INTERP (BEAKER) (test waxa=0676) 0-39% indicates marked platelet dysfunction [id number] (BEAKER) (test ggzw=1408) Lydia Mitchell MD (electronic signature) PLATELET COUNT AGG (BEAKER) (test moxb=5433) 439 K/CU MM 150-430 PLATELET AGGREGATION: FUNCTION [id number] 08:36:00* Test Item Value Reference Range Comments WEAK ADP RESULT(BEAKER) (test shpi=9912) 92 % 60-91 PLATELET FUNCTION SCREEN INTERP (BEAKER) (test kkbj=4918) 60-100% indicates normal platelet function [id number] (BEAKER) (test asos=1811) Lydia Mitchell MD (electronic signature) PLATELET COUNT AGG (BEAKER) (test ypbq=3497) 503 K/CU MM 150-430 POCT-GLUCOSE [id number] 07:43:00* Test Item Value Reference Range Comments POC-GLUCOSE METER (BEAKER) (test bjvu=2143) 246 mg/dL 70-110 TESTED AT [facility] [address] [facility] [address] RAPID DRUG SCREEN, [id number] 05:48:00* Test Item Value Reference Range Comments BARBITURATE URINE (BEAKER) (test ftqt=900) Negative Negative BENZODIAZEPINE SCREEN URINE (BEAKER) (test kaib=353) Positive Negative COCAINE (METAB.) SCREEN (BEAKER) (test gudz=1173) Negative Negative METHADONE SCREEN (BEAKER) (test eavn=2253) Negative Negative OPIATE SCREEN URINE (BEAKER) (test ekvo=421) Positive Negative CANNABINOID SCREEN URINE (BEAKER) (test gccm=141) Negative Negative AMPH/METHAMPH SCREEN (BEAKER) (test kfqm=5230) Negative Negative PHENCYCLIDINE SCREEN URINE (BEAKER) (test vqok=763) Negative Negative OXYCODONE SCREEN URINE (BEAKER) (test lyqb=6572) Negative Negative DRUG CUTOFF CONC.Cocaine 300 ng/mL Cannabinoid 50 ng/mL Benzodiazepine 200 ng/mLBarbiturate 200 ng/mLPh encyclidine 25 ng/mLOpiate 300 ng/mLMethadone 300 ng/mLAmphetamine/ 1000 ng/mL MethamphetamineOxycodone 300 ng/[id number] 04:31:00* Test Item Value Reference Range Comments MAGNESIUM (BEAKER) (test viom=095) 1.9 mg/dL 1.6-2.6 POCT-GLUCOSE [id number] 17:40:00* Test Item Value Reference Range Comments POC-GLUCOSE METER (BEAKER) (test kldp=4280) 198 mg/dL 70-110 TESTED AT [address] [address] POCT-GLUCOSE [id number] 13:02:00* Test Item Value Reference Range Comments POC-GLUCOSE METER (BEAKER) (test ynyf=8220) 243 mg/dL 70-110 TESTED AT [address] [address] HEMOGLOBIN [id number] 08:20:00* Test Item Value Reference Range Comments HEMOGLOBIN A1C (BEAKER) (test dppx=654) 9.8 % 4.3-6.1 POCT-GLUCOSE [id number] 07:37:00* Test Item Value Reference Range Comments POC-GLUCOSE METER (BEAKER) (test mijd=3903) 205 mg/dL 70-110 TESTED AT [address] [address] T4, [id number] 06:35:00* Test Item Value Reference Range Comments FREE T4 (BEAKER) (test zsws=812) 0.57 ng/dL 0.70-1.48 TSH/FREE T4 IF [id number] 05:48:00* Test Item Value Reference Range Comments THYROID STIMULATING HORMONE (BEAKER) (test qbyb=996) 14.85 uIU/mL 0.35-4.94 TROPONIN [id number] 05:40:00* Test Item Value Reference Range Comments TROPONIN I (BEAKER) (test sbvs=491) 1.02 ng/mL 0.00-0.03 Effective 04/21/2014: Reference Range ChangeNew: 0.00-0.03 Previous 0.00-0.15T roponin I (TnI) levels must be interpreted in the context of the presenting symp toms and the clinical findings. Elevated TnI levels indicate myocardial damage, but are not specific for ischemic heart disease. Elevated TnI levels are seen in patients with other cardiac conditions (including myocarditis and congestive he art failure), and slight TnI elevations occur in patients with other conditions, including sepsis, renal failure, acidosis, acute neurological disease, and pers istent tachyarrhythmia.CREATINE KINASE (CK), TOTAL AND [id number] 05:35:00* Test Item Value Reference Range Comments CREATINE KINASE TOTAL (BEAKER) (test dxwv=695) 272 U/L 29-200 CREATINE KINASE-MB (BEAKER) (test bxoh=554) 4.7 ng/mL 0.0-6.6 CREATINE KINASE-MB INDEX (BEAKER) (test dvqe=182) 1.7 % Effective 04/21/2014: CK-MB Reference Range ChangeNew: 0.0-6.6 Previous: 0.0- 4.9CK-MB Reference Range:<6.7 Normal6.7-10.0 Borderline>10.0 Abnormal [id number] 05:26:00* Test Item Value Reference Range Comments MAGNESIUM (BEAKER) (test cepf=189) 1.8 mg/dL 1.6-2.6 BASIC METABOLIC [id number] 05:26:00* Test Item Value Reference Range Comments SODIUM (BEAKER) (test bkgp=076) 135 meq/L 136-145 POTASSIUM (BEAKER) (test fduz=601) 4.1 meq/L 3.5-5.1 CHLORIDE (BEAKER) (test epxb=345) 99 meq/L 98-107 CO2 (BEAKER) (test epib=075) 20 meq/L 22-29 BLOOD UREA NITROGEN (BEAKER) (test whfo=664) 11 mg/dL 7-21 CREATININE (BEAKER) (test rfaj=038) 0.95 mg/dL 0.57-1.25 GLUCOSE RANDOM (BEAKER) (test wkam=250) 237 mg/dL 70-105 CALCIUM (BEAKER) (test ecsr=469) 9.1 mg/dL 8.4-10.2 EGFR (BEAKER) (test txod=0676) 66 mL/min/1.73 sq m ESTIMATED GFR IS NOT ACCURATE CREATININE CLEARANCE IN PREDICTING GLOMERULAR FILTRATION RATE. ESTIMATED GFR IS NOT APPLICABLE FOR DIALYSIS PATIENTS. LIPID [id number] 05:26:00* Test Item Value Reference Range Comments TRIGLYCERIDES (BEAKER) (test rgsv=241) 186 mg/dL CHOLESTEROL (BEAKER) (test oueg=884) 212 mg/dL HDL CHOLESTEROL (BEAKER) (test xttj=629) 37 mg/dL LDL CHOLESTEROL CALCULATED (BEAKER) (test apxe=251) 138 mg/dL Triglyceride Reference Range: Low Risk <150 Borderline 150-199 High Risk 200-499 Very High Risk >=500Cholesterol Reference Range: Low Risk <200 Borderline 200-239 High Risk >240HDL Cholesterol Reference Range: Low Risk >=60 High Risk <40LDL Cholesterol Reference Range: Optimal <100 Near Optimal 100-129 Borderline 130-159 High 160-189 Very High >=190 CBC W/PLT COUNT & AUTO [id number] 05:24:00* Test Item Value Reference Range Comments WHITE BLOOD CELL COUNT (BEAKER) (test nuwl=115) 14.6 K/ L 4.0-10.0 RED BLOOD CELL COUNT (BEAKER) (test wqpp=230) 3.76 M/ L 4.00-5.00 HEMOGLOBIN (BEAKER) (test sxlp=993) 9.0 GM/DL 12.0-15.0 HEMATOCRIT (BEAKER) (test clcl=499) 28.8 % 36.0-45.0 MEAN CORPUSCULAR VOLUME (BEAKER) (test yfhg=755) 76.8 fL 82.0-99.0 MEAN CORPUSCULAR HEMOGLOBIN (BEAKER) (test ghyd=850) 23.9 pg 27.0-33.0 MEAN CORPUSCULAR HEMOGLOBIN CONC (BEAKER) (test hizd=151) 31.1 GM/DL 32.0-36.0 RED CELL DISTRIBUTION WIDTH (BEAKER) (test amsv=761) 16.4 % 10.3-14.2 PLATELET COUNT (BEAKER) (test hdgn=705) 473 K/CU MM 150-430 MEAN PLATELET VOLUME (BEAKER) (test ngzk=144) 7.9 fL 6.5-10.5 NUCLEATED RED BLOOD CELLS (BEAKER) (test xmgr=827) 0 /100 WBC 0-0 NEUTROPHILS RELATIVE PERCENT (BEAKER) (test bwvq=616) 76 % LYMPHOCYTES RELATIVE PERCENT (BEAKER) (test lbnp=622) 18 % MONOCYTES RELATIVE PERCENT (BEAKER) (test omqd=446) 5 % EOSINOPHILS RELATIVE PERCENT (BEAKER) (test twhe=238) 1 % BASOPHILS RELATIVE PERCENT (BEAKER) (test bcpj=604) 1 % NEUTROPHILS ABSOLUTE COUNT (BEAKER) (test dvho=420) 11.10 K/ L 1.80-8.00 LYMPHOCYTES ABSOLUTE COUNT (BEAKER) (test xhph=547) 2.59 K/ L 1.48-4.50 MONOCYTES ABSOLUTE COUNT (BEAKER) (test yfmr=359) 0.76 K/ L 0.00-1.30 EOSINOPHILS ABSOLUTE COUNT (BEAKER) (test najb=028) 0.08 K/ L 0.00-0.50 BASOPHILS ABSOLUTE COUNT (BEAKER) (test nneg=634) 0.09 K/ L 0.00-0.20 0.00TROPONIN [id number] 22:51:00* Test Item Value Reference Range Comments TROPONIN I (BEAKER) (test yaee=666) 0.39 ng/mL 0.00-0.03 Effective 04/21/2014: Reference Range ChangeNew: 0.00-0.03 Previous 0.00-0.15T roponin I (TnI) levels must be interpreted in the context of the presenting symp toms and the clinical findings. Elevated TnI levels indicate myocardial damage, but are not specific for ischemic heart disease. Elevated TnI levels are seen in patients with other cardiac conditions (including myocarditis and congestive he art failure), and slight TnI elevations occur in patients with other conditions, including sepsis, renal failure, acidosis, acute neurological disease, and pers istent tachyarrhythmia.CREATINE KINASE (CK), TOTAL AND [id number] 22:43:00* Test Item Value Reference Range Comments CREATINE KINASE TOTAL (BEAKER) (test bfun=334) 282 U/L 29-200 CREATINE KINASE-MB (BEAKER) (test bkpi=439) 3.1 ng/mL 0.0-6.6 CREATINE KINASE-MB INDEX (BEAKER) (test hoim=336) 1.1 % Effective 04/21/2014: CK-MB Reference Range ChangeNew: 0.0-6.6 Previous: 0.0- 4.9CK-MB Reference Range:<6.7 Normal6.7-10.0 Borderline>10.0 Abnormal B-TYPE NATRIURETIC FACTOR (BNP)2016-08-25 22:43:00* Test Item Value Reference Range Comments B-TYPE NATRIURETIC PEPTIDE (BEAKER) (test tosn=009) 267 pg/mL 0-100 [id number] 22:36:00* Test Item Value Reference Range Comments MAGNESIUM (BEAKER) (test atca=249) 1.7 mg/dL 1.6-2.6 C-REACTIVE [id number] 22:36:00* Test Item Value Reference Range Comments C-REACTIVE PROTEIN (BEAKER) (test voxz=052) 1.78 mg/dL 0.00-0.50 CBC (HEMOGRAM ONLY)2016-08-25 22:25:00* Test Item Value Reference Range Comments WHITE BLOOD CELL COUNT (BEAKER) (test xjsc=574) 18.1 K/ L 4.0-10.0 RED BLOOD CELL COUNT (BEAKER) (test bssc=918) 4.20 M/ L 4.00-5.00 HEMOGLOBIN (BEAKER) (test onza=809) 9.8 GM/DL 12.0-15.0 HEMATOCRIT (BEAKER) (test durw=511) 32.6 % 36.0-45.0 MEAN CORPUSCULAR VOLUME (BEAKER) (test bwgl=691) 77.5 fL 82.0-99.0 MEAN CORPUSCULAR HEMOGLOBIN (BEAKER) (test faim=224) 23.3 pg 27.0-33.0 MEAN CORPUSCULAR HEMOGLOBIN CONC (BEAKER) (test nyfx=455) 30.0 GM/DL 32.0-36.0 RED CELL DISTRIBUTION WIDTH (BEAKER) (test iwld=059) 17.3 % 10.3-14.2 PLATELET COUNT (BEAKER) (test woui=698) 491 K/CU MM 150-430 MEAN PLATELET VOLUME (BEAKER) (test xwlw=572) 7.8 fL 6.5-10.5 NUCLEATED RED BLOOD CELLS (BEAKER) (test uirw=277) 0 /100 WBC 0-0 [id number] 19:13:00* Test Item Value Reference Range Comments ACTIVATED CLOTTING TIME (BEAKER) (test flsu=472) 276 sec TESTED AT [facility] [address] [facility] [address] POCT-GLUCOSE [id number] 17:09:00* Test Item Value Reference Range Comments POC-GLUCOSE METER (BEAKER) (test omsk=6304) 158 mg/dL 70-110 TESTED AT [facility] [address] [facility] [address] TROPONIN [id number] 14:00:00* Test Item Value Reference Range Comments TROPONIN I (BEAKER) (test ooek=012) 0.19 ng/mL 0.00-0.03 Effective 04/21/2014: Reference Range ChangeNew: 0.00-0.03 Previous 0.00-0.15T roponin I (TnI) levels must be interpreted in the context of the presenting symp toms and the clinical findings. Elevated TnI levels indicate myocardial damage, but are not specific for ischemic heart disease. Elevated TnI levels are seen in patients with other cardiac conditions (including myocarditis and congestive he art failure), and slight TnI elevations occur in patients with other conditions, including sepsis, renal failure, acidosis, acute neurological disease, and pers istent tachyarrhythmia.COMPREHENSIVE METABOLIC [id number] 13:53:00* Test Item Value Reference Range Comments TOTAL PROTEIN (BEAKER) (test ruud=231) 8.5 gm/dL 6.0-8.3 ALBUMIN (BEAKER) (test zyln=9341) 4.5 g/dL 3.5-5.0 ALKALINE PHOSPHATASE (BEAKER) (test yaio=689) 149 U/L 40-150 BILIRUBIN TOTAL (BEAKER) (test punc=011) 0.2 mg/dL 0.2-1.2 SODIUM (BEAKER) (test guqy=474) 137 meq/L 136-145 POTASSIUM (BEAKER) (test ynlg=017) 4.1 meq/L 3.5-5.1 CHLORIDE (BEAKER) (test rdch=673) 99 meq/L 98-107 CO2 (BEAKER) (test agyf=954) 25 meq/L 22-29 BLOOD UREA NITROGEN (BEAKER) (test jqqg=024) 11 mg/dL 7-21 CREATININE (BEAKER) (test ubet=047) 0.96 mg/dL 0.57-1.25 GLUCOSE RANDOM (BEAKER) (test liyw=890) 174 mg/dL 70-105 CALCIUM (BEAKER) (test yeyj=265) 9.7 mg/dL 8.4-10.2 AST (SGOT) (BEAKER) (test vswm=946) 105 U/L 5-34 ALT (SGPT) (BEAKER) (test slhh=600) 79 U/L 6-55 EGFR (BEAKER) (test ikmw=3620) 65 mL/min/1.73 sq m ESTIMATED GFR IS NOT ACCURATE CREATININE CLEARANCE IN PREDICTING GLOMERULAR FILTRATION RATE. ESTIMATED GFR IS NOT APPLICABLE FOR DIALYSIS PATIENTS. CREATINE KINASE (CK)2016-08-25 13:53:00* Test Item Value Reference Range Comments CREATINE KINASE TOTAL (BEAKER) (test qylr=754) 351 U/L 29-200 CBC W/PLT COUNT & AUTO [id number] 13:45:00* Test Item Value Reference Range Comments WHITE BLOOD CELL COUNT (BEAKER) (test bhcq=251) 12.3 K/ L 4.0-10.0 RED BLOOD CELL COUNT (BEAKER) (test ehyi=835) 4.28 M/ L 4.00-5.00 HEMOGLOBIN (BEAKER) (test snwy=289) 10.1 GM/DL 12.0-15.0 HEMATOCRIT (BEAKER) (test kwrs=827) 32.9 % 36.0-45.0 MEAN CORPUSCULAR VOLUME (BEAKER) (test wxrs=221) 76.8 fL 82.0-99.0 MEAN CORPUSCULAR HEMOGLOBIN (BEAKER) (test bccv=441) 23.5 pg 27.0-33.0 MEAN CORPUSCULAR HEMOGLOBIN CONC (BEAKER) (test ewgc=882) 30.6 GM/DL 32.0-36.0 RED CELL DISTRIBUTION WIDTH (BEAKER) (test dgzk=143) 17.2 % 10.3-14.2 PLATELET COUNT (BEAKER) (test uzhl=623) 531 K/CU MM 150-430 MEAN PLATELET VOLUME (BEAKER) (test ehlr=020) 7.7 fL 6.5-10.5 NUCLEATED RED BLOOD CELLS (BEAKER) (test jvdl=286) 0 /100 WBC 0-0 NEUTROPHILS RELATIVE PERCENT (BEAKER) (test doed=594) 64 % LYMPHOCYTES RELATIVE PERCENT (BEAKER) (test ijpe=118) 26 % MONOCYTES RELATIVE PERCENT (BEAKER) (test ysry=604) 6 % EOSINOPHILS RELATIVE PERCENT (BEAKER) (test eija=837) 3 % BASOPHILS RELATIVE PERCENT (BEAKER) (test byfh=759) 1 % NEUTROPHILS ABSOLUTE COUNT (BEAKER) (test ghve=930) 7.87 K/ L 1.80-8.00 LYMPHOCYTES ABSOLUTE COUNT (BEAKER) (test tccf=159) 3.18 K/ L 1.48-4.50 MONOCYTES ABSOLUTE COUNT (BEAKER) (test mpds=811) 0.79 K/ L 0.00-1.30 EOSINOPHILS ABSOLUTE COUNT (BEAKER) (test zibz=596) 0.32 K/ L 0.00-0.50 BASOPHILS ABSOLUTE COUNT (BEAKER) (test paul=681) 0.10 K/ L 0.00-0.20 [id number] 13:35:00* Test Item Value Reference Range Comments D-DIMER QUANTITATIVE (BEAKER) (test gduo=795) 0.31 MG/L FEU <0.50 Intended Use: The D-Dimer Assay can be used to aid in the diagnosis of Deep Vein Thrombosis (DVT) and Pulmonary Embolism Disease (PED).In patients with low pre- test probability, various studies concerning STA Liatest D-dimer test have repor eugene that with a cutoff value of 0.50 MG/L FEU, the Negative Predictive Value (STREAM CONTROL OFFICER V) regarding the exclusion of thrombosis is within 95-100% range."
== END 2018-08-02 17:12 | disposition home or self-care (01) ==
LOC: FSED 16:44
DX: B34.9 Viral infection, unspecified (principal); Z85.72 Personal history of non-Hodgkin lymphomas; I25.10 Atherosclerotic heart disease of native coronary artery without angina pectoris; I10 Essential (primary) hypertension; E11.9 Type 2 diabetes mellitus without complications; Z95.1 Presence of aortocoronary bypass graft
CPT/HCPCS: 99283

== ENCOUNTER 2019-12-12 15:21 | Emergency (ER) | payer MEDICARE, OTHER ==
[~2019-12-12] VITALS: Ht 160 cm; Wt 99.8 kg
[2019-12-12] MEDS ORDERED: CYCLOBENZAPRINE HCL 10 MG TAB PO ONE (15:45)
[2019-12-12] MEDS ORDERED: HYDROCODONE/APAP 5MG-325MG TAB PO ONE (15:45)
--- NOTE | 2019-12-12 15:48 | Emergency Department Note ---
History of Present Illnes History of Present Illness Chief Complaint: Back Pain History of Present Illness This is a 44 year old female Chief Complaint Comment Reports right shoulder blade pain since 329, denies trauma, states that is has been constantly throbbing and she cannot get comfortable or sleep. . Historian: Patient Arrival Mode: Car Onset (how long ago): day(s) (2) Location: R shoulder Quality: SHARP Radiation: Reports extremity Severity: moderate Onset quality: gradual Duration (how long): day(s) (2) Timing of current episode: constant Progression: waxing and waning Context: Denies recent illness, Denies recent surgery, Denies recent immobilization, Denies recent travel, Denies trauma/injury, Denies new medications, Denies hx of DVT/PE, Denies non-compliance w/ medications, Denies other Relieving factors: none Exacerbating factors: none Associated symptoms: Reports denies other symptoms Treatments prior to arrival: none Past Medical/Family History Physician Review I have reviewed the patient's past medical and family history. Any updates have been documented here. Past Medical History Recent Fever: No Clinical Suspicion of Infectio: No New/Unexplained Change in Ment: No Past Medical History: Hypertension, Diabetes, Hypothyroidism, CAD, Anemia, Depression, Hyperlipedemia Other Medical History: HODGKINS LYMPHOMA IRON DEFICIENCY ANEMIA 2 PREVIOUS IA'S OBESITY Past Surgical History: Tubal Ligation, Other Surgery: cardiac stents x3 triple bypass uterine ablation thyroidectomy Social History Smoking Cessation: Never Smoker Counseling Performed: No Alcohol Use: None Any Illegal Drug Use: No Physically hurt or threatened: No Other Any Pre-Existing Lines (PICC,: No Review of Systems Review of Systems Constitutional: Reports no symptoms EENTM: Reports no symptoms Cardiovascular: Reports no symptoms Respiratory: Reports no symptoms Gastrointestinal: Reports no symptoms Genitourinary: Reports no symptoms Musculoskeletal: Reports as per HPI Integumentary: Reports no symptoms Neurological: Reports no symptoms Psychological: Reports no symptoms Endocrine: Reports no symptoms Hematological/Lymphatic: Reports no symptoms Physical Exam Related Data Allergies: Coded Allergies: vancomycin (Verified Allergy, Intermediate, RASH, 02/03/15) Triage Vital Signs Vital Signs Date Time Temp Pulse Resp B/P (MAP) Pulse Ox O2 Delivery O2 Flow Rate FiO2 12/12/19 15:27 97.7 104 18 169/89 100 Room Air Vital signs reviewed: Yes Physical Exam CONSTITUTIONAL Constitutional: Present well-developed, Present well-nourished HENT HENT: Present normocephalic, Present atraumatic, Present oropharynx clear/moist, Present nose normal HENT L/R: Present left ext ear normal, Present right ext ear normal EYES Eyes: Reports PERRL, Reports conjunctivae normal NECK Neck: Present ROM normal PULMONARY Pulmonary: Present effort normal, Present breath sounds normal CARDIOVASCULAR Cardiovascular: Present regular rhythm, Present heart sounds normal, Present capillary refill normal, Present normal rate GASTROINTESTINAL Abdominal: Present soft, Present nontender, Present bowel sounds normal GENITOURINARY Genitourinary: Present exam deferred SKIN Skin: Present warm, Present dry MUSCULOSKELETAL Musculoskeletal: Present ROM normal, Present tenderness NEUROLOGICAL Neurological: Present alert, Present oriented x 3, Present no gross motor or sensory deficits PSYCHOLOGICAL Psychological: Present mood/affect normal, Present judgement normal Assessment & Plan Medical Decision Making MDM MUSCLE SPASM RADICULOPATHY Reassessment Reassessment time: 15:47 Reassessment BETTER Assessment & Plan Final Impression: (1) Musculoskeletal pain (2) Acute pain Depart Disposition: HOME, SELF-CARE Last Vital Signs Date Time Temp Pulse Resp B/P (MAP) Pulse Ox O2 Delivery O2 Flow Rate FiO2 12/12/19 15:27 97.7 104 18 169/89 100 Room Air Home Meds Reported Medications Levothyroxine Sodium (SYNTHROID) 100 Mcg Tab, 200 MCG PO 0600, #30 TAB 02/03/15 Glipizide (GLIPIZIDE) 5 Mg Tablet, 5 MG PO DAILY, TAB 02/03/15 Medications in the ED Acetaminophen/ Hydrocodone Bitart 1 ea ONCE ONCE PO ; Start 12/12/19 at 15:45; Stop 12/12/19 at 15:46; Status UNV Cyclobenzaprine HCl 10 mg ONCE ONCE PO ; Start 12/12/19 at 15:45; Stop 12/12/19 at 15:46; Status UNV PAMELLA CARLISLE MD Dec 12, 2019 15:48
[2019-12-12] MEDS ORDERED: ATORVASTATIN CA20 MG PO (15:49)
[2019-12-12] MEDS ORDERED: AMBIEN10 MG PO (15:49)
[2019-12-12] MEDS ORDERED: TRULICITY1.5 MG/0.5 (15:49)
[2019-12-12] MEDS ORDERED: JARDIANCE10 MG (15:49)
[2019-12-12] MEDS ORDERED: LISINOPRIL10 MG PO (15:49)
[2019-12-12] MEDS ORDERED: METFORMIN HCL500 MG PO (15:49)
[2019-12-12] MEDS ORDERED: SERTRALINE HCL50 MG PO (15:49)
[2019-12-12] MEDS ORDERED: CYCLOBENZAPRINE5 MG PO (15:51)
[2019-12-12] MEDS ORDERED: SEVOFLURANE PO (15:52)
[2019-12-12] MEDS ORDERED: ULTRAM 50MG50 MG PO (16:18)
== END 2019-12-12 16:11 | disposition home or self-care (01) ==
LOC: FSED 15:45
DX: M25.511 Pain in right shoulder (principal); M79.18 Myalgia, other site; I10 Essential (primary) hypertension; E78.5 Hyperlipidemia, unspecified; E03.9 Hypothyroidism, unspecified; I25.10 Atherosclerotic heart disease of native coronary artery without angina pectoris; Z95.5 Presence of coronary angioplasty implant and graft; Z85.72 Personal history of non-Hodgkin lymphomas
CPT/HCPCS: 99283

== ENCOUNTER 2020-01-09 18:59 | Emergency (ER) | payer OTHER, MEDICARE ==
[~2020-01-09] VITALS: Ht 160 cm; Wt 99.8 kg
[~2020-01-09 18:59] MED LIST changes: +AMBIEN10 MG PO; +ATORVASTATIN CA20 MG PO; +CYCLOBENZAPRINE5 MG PO; +JARDIANCE10 MG; +LISINOPRIL10 MG PO; +METFORMIN HCL500 MG PO; +SERTRALINE HCL50 MG PO; +SEVOFLURANE PO; +TRULICITY1.5 MG/0.5; +ULTRAM 50MG50 MG PO
--- NOTE | 2020-01-09 19:31 | Emergency Department Note ---
History of Present Illnes History of Present Illness Chief Complaint: General Medicine Complaints History of Present Illness This is a 44 year old female PT C/O OF JUST NOT FEELING WELL, STATES SINCE EARLY THIS MORNING SHE HAS BEEN HAVING A LOT OF EPISODES OF LIGHTHEADEDNESS, A LOT OF FATIGUE, AND JUST FEELS OFF WHEN SHE IS WALKING, PT STATES SHE HAS BEEN SLEEPING ALL DAY LONG AND DECIDED TO COME TO ER BC NOW HER FACE IS SWOLLEN? PT STATES WAS CHECKED FOR COVID SYMPTOMS 2 WEEKS AGO AND TEST WAS NEGATIVE. PT IN NO ACUTE DISTRESS, O2 SATS 100 ON RA, WAS TOLD TO SEE A HEAD CHEF FOR ANEMIA (POSS LOW HGB) BUT APPT NOT UNTIL NEXT WEEK . Historian: Patient Arrival Mode: Car Lock Technician Required: No Onset (how long ago): day(s) Radiation: Reports non-radiation Severity: moderate Onset quality: gradual Duration (how long): day(s) Progression: waxing and waning Relieving factors: none Exacerbating factors: none Treatments prior to arrival: none Past Medical/Family History Physician Review I have reviewed the patient's past medical and family history. Any updates have been documented here. Past Medical History Recent Fever: No Clinical Suspicion of Infectio: No New/Unexplained Change in Ment: No Past Medical History: Hypertension, Diabetes, Hypothyroidism, CAD, Anemia, Depression, Hyperlipedemia Other Medical History: HODGKINS LYMPHOMA IRON DEFICIENCY ANEMIA 2 PREVIOUS FL'S OBESITY Past Surgical History: Tubal Ligation, Other Surgery: CARDIAC STENTS X3 TRIPLE BYPASS UTERINE ABLATION THYROIDECTOMY Social History Smoking Cessation: Never Smoker Counseling Performed: No Alcohol Use: None Any Illegal Drug Use: No Physically hurt or threatened: No Other Any Pre-Existing Lines (PICC,: No Review of Systems Review of Systems Constitutional: Reports malaise, Reports weakness EENTM: Reports no symptoms Cardiovascular: Reports no symptoms Respiratory: Reports no symptoms Gastrointestinal: Reports no symptoms Genitourinary: Reports no symptoms Musculoskeletal: Reports muscle pain Integumentary: Reports no symptoms Neurological: Reports no symptoms Psychological: Reports no symptoms Endocrine: Reports no symptoms Hematological/Lymphatic: Reports no symptoms Physical Exam Related Data Allergies: Coded Allergies: vancomycin (Verified Allergy, Intermediate, RASH, 02/03/15) Triage Vital Signs Vital Signs Date Time Temp Pulse Resp B/P (MAP) Pulse Ox O2 Delivery O2 Flow Rate FiO2 01/09/20 19:08 97.6 102 18 170/82 100 Room Air Vital signs reviewed: Yes Physical Exam CONSTITUTIONAL Constitutional: Present well-developed, Present obese HENT HENT: Present normocephalic, Present atraumatic, Present oropharynx clear/moist, Present nose normal, Present other (generalized edema) HENT L/R: Present left ext ear normal, Present right ext ear normal EYES Eyes: Reports PERRL, Reports conjunctivae normal NECK Neck: Present ROM normal PULMONARY Pulmonary: Present effort normal, Present breath sounds normal CARDIOVASCULAR Cardiovascular: Present regular rhythm, Present heart sounds normal, Present capillary refill normal, Present normal rate GASTROINTESTINAL Abdominal: Present soft, Present nontender, Present bowel sounds normal GENITOURINARY Genitourinary: Present exam deferred SKIN Skin: Present warm, Present dry MUSCULOSKELETAL Musculoskeletal: Present ROM normal NEUROLOGICAL Neurological: Present alert, Present oriented x 3, Present no gross motor or sensory deficits PSYCHOLOGICAL Psychological: Present mood/affect normal, Present judgement normal Results Laboratory Lab results reviewed: Yes Laboratory comments glucose 195, pt refuses UA Assessment & Plan Medical Decision Making MDM anxiety depression uti Reassessment Reassessment time: 20:15 Reassessment feeling much better after IV fluid Assessment & Plan Final Impression: (1) Anemia (2) Musculoskeletal pain (3) Generalized edema Depart Disposition: HOME, SELF-CARE Last Vital Signs Date Time Temp Pulse Resp B/P (MAP) Pulse Ox O2 Delivery O2 Flow Rate FiO2 01/09/20 19:08 97.6 102 18 170/82 100 Room Air Home Meds Active Scripts Tramadol Hcl* (ULTRAM 50MG*) 50 Mg Tab, 50 MG PO Q6H PRN for PAIN, #20 TAB 0 Refills Prov:PAMELLA CARLISLE MD 12/12/19 Sevoflurane (ULTANE) 250 Ml Liquid, 50 MG PO TID for pain, #20 Prov:PAMELLA CARLISLE MD 12/12/19 Cyclobenzaprine Hcl (FLEXERIL) 5 Mg Tablet, 10 MG PO Q8H PRN for PAIN, #20 TAB 0 Refills Prov:PAMELLA CARLISLE MD 12/12/19 Reported Medications Sertraline Hcl (SERTRALINE HCL) 50 Mg Tablet, 50 MG PO DAILY, #30 TAB 12/12/19 Lisinopril (LISINOPRIL) 10 Mg Tablet, 10 MG PO DAILY, #30 TAB 12/12/19 Zolpidem Tartrate (AMBIEN) 10 Mg Tablet, 10 MG PO HS, #30 TAB 12/12/19 Empagliflozin (Jardiance) 10 Mg Tablet, DAILY 12/12/19 Dulaglutide (Trulicity) 1.5 Mg/0.5 Ml Pen.injctr, DAILY 12/12/19 Metformin Hcl (METFORMIN HCL) 500 Mg Tablet, 500 MG PO BID, #60 TAB 12/12/19 Atorvastatin Calcium (ATORVASTATIN CALCIUM) 20 Mg Tablet, 20 MG PO HS, #30 TAB 12/12/19 Levothyroxine Sodium (SYNTHROID) 100 Mcg Tab, 200 MCG PO 0600, #30 TAB 02/03/15 Glipizide (GLIPIZIDE) 5 Mg Tablet, 5 MG PO DAILY, TAB 02/03/15 Physician Attestation Provider Attestation f/u with Dr Ruano for further work up, considering nephrology consult for possible nephrotic syndrome GURPREET CEDEÑO MD Jan 09, 2020 19:31
--- OUTSIDE RECORDS SUMMARY | 2020-01-09 19:50 | XMS REPORT | Clinical Summary ---
Author Author NATALIE [facility] Address Unknown Phone Unavailable Care Team Providers [facility] Department Supervisor Name Role Phone [place] Kat MD PCP Unavailable Allergies Comments Active Allergy Reactions Severity Noted Date Vancomycin Analogues Hives 04/14/2013 Medications End Date Status Medication Sig Dispensed Refills Start Date Active insulin glargine 100 Inject 5 10 Syringe 5 09/24 unit/mL (3 mL) InPn Units 7 subcutaneousl y every morning. Active levothyroxine (SYNTHROID, Take 1 tablet 90 tablet 0 LEVOTHROID) 200 MCG (200 mcg 7 tablet total) by mouth Every morning on an empty stomach Total of 250 mcg daily. Active sertraline (ZOLOFT) 25 MG Take 25 mg by 0 tablet mouth daily. Active Problems Problem Noted Date Severe sepsis with septic shock (CODE) 11/05/2016 Elevated lactic acid level 11/05/2016 E coli bacteremia 11/05/2016 Sepsis secondary to UTI 11/04/2016 Iron deficiency anemia secondary to inadequate dietar y iron intake 09/24/2016 Myocardial infarction 08/27/2016 Leucocytosis 08/26/2016 Hypochromic microcytic anemia 08/26/2016 Diabetes mellitus due to underlying condition with hy perosmolarity without 08/26/2016 coma, without long-term current use of insulin Precordial chest pain 08/25/2016 Obesity (BMI 30-39.9) 08/25/2016 Hypothyroid 08/25/2016 Diabetic neuropathy 08/25/2016 Type 2 diabetes, uncontrolled, with neuropathy 08/25 NSTEMI (non-ST elevated myocardial infarction) 08/25 Left arm pain 08/25/2016 Acquired hypothyroidism 02/17/2016 [...] Signs Not on file Plan of Treatment Not on file Implants Device Identifier Shelf Expiration Date Model / Serial / L ot Implanted Type Area Manufactur er 06/03/2017 [id number] / / [id number] Device Clsr Angio-Seal Vip 6fr Cardiovasc Right: Groin ST DEB [id number] - [id number] ular MED:CARDIA Implanted: Qty: 1 on 08/25/2016 by Devante Stoner MD 04/11/2017 [id number] / / [id number] Synergy Stents-Cor N/A: Coronary [place] Implanted: Qty: 1 on 08/25/2016 by onary SCI [employer] Devante Ellison MD Results Not on fileafter 01/08/2019 Insurance Payer Benefit Subscriber ID Type Phone Address Plan / Group AETNA - [employer] CARE AETNA HMO xxxxxxxxx HMO/POS POS QPOS Advance Directives For more information, please contact: [facility] [address] [place] [address] Date Inactivated Comments Code Status Date Activated 11/07/2016 2:23 PM Full Code 11/04/2016 1:50 PM This code status was determined by: Patient 09/22/2016 7:16 PM Full Code 09/22/2016 2:07 PM This code status was determined by: Patient 02/18/2016 4:23 PM Full Code 02/16/2016 11:55 PM This code status was determined by: Patient 09/26/2013 3:15 PM All possible means of suppor t, including: cardiac massage, mechanical ventilation, and defibrillation will be used to support life. Code ONE 09/24/2013 11:01 PM
--- OUTSIDE RECORDS SUMMARY | 2020-01-09 19:52 | XMS REPORT | Summary of Care ---
Author Author [facility] Organization [facility] Address Unknown Phone Unavailable Encounter ARLEY Montemayor(ELMER) [id number] Date(s): 09/14/15 - 09/16/15 [facility] [address] [place] [address]- Discharge Disposition: Home Attending Physician: Capo Woodward MD Admitting Physician: Capo Woodward MD Vital Signs 1 2 3 Most recent to oldest [Reference Range]: 162.56 cm (09/15/15 4:08 AM) 162.56 cm (09/14/15 2:57 PM) Height 97.7 DegF (09/16/15 12:20 PM) 97.3 DegF (09/16/15 8:00 AM) 98.1 DegF (09/16/15 3:59 AM) Temperature Oral [96.4-99.1 DegF] 115/75 mmHg (09/16/15 12:20 PM) 135/87 mmHg (09/16/15 8:00 AM) 134/77 mmHg (09/16/15 3:59 AM) Blood Pressure [90-140/60-90 mmHg] 15 BRMIN (09/16/15 3:59 AM) 16 BRMIN (09/15/15 8:04 PM) 16 BRMIN (09/15/15 4:00 PM) Respiratory Rate [14-20 BRMIN] 84 bpm (09/16/15 12:20 PM) 85 bpm (09/16/15 8:00 AM) 90 bpm (09/16/15 3:59 AM) Peripheral Pulse Rate [60-100 bpm] 115 kg (09/15/15 4:08 AM) 104.545 kg (09/14/15 2:57 PM) Weight 43.52 m2 (09/15/15 4:08 AM) 39.56 m2 (09/14/15 2:57 PM) Body Mass Index Problem List Condition Effective Dates Status Health Status Informan t [M]Non-Hodgkin's Active lymphoma(Confirmed) Anemia(Confirmed) Active Diabetes(Confirmed) Resolved Fever(Confirmed) Active Hodgkins Resolved lymphoma(Confirmed) Hypertension(Confirm Resolved ed) Neuropathy(Confirmed Resolved )1 Shortness of Active breath(Confirmed) Thyroidectomy(Confir Resolved med) 1affects legs Allergies, Adverse Reactions, Alerts Substance Reaction Severity Status vancomycin Active Medications acetaminophen 650 mg, 2 tab, Route: PO, Drug form: TAB, Q4H, Dosing Weight 115, kg, PRN For Te mp > 100.4 F, Start date: 09/15/15 17:54:00 CDT, Duration: 30 day, Stop date: 10/15/15 17:53:00 CDT Notes: Do not exceed 4 gm/day. (Same as: Tylenol) Start Date: 09/15/15 Stop Date: 09/16/15 Status: Discontinued Al hydroxide/Mg hydroxide/simethicone 200 mg-200 mg-20 mg/5 mL oral suspension 30 mL, Route: PO, Drug Form: SUSP, Dosing Weight 115, kg, Q4H, PRN Indigestion, Start date: 09/15/15 17:54:00 CDT, Duration: 30 day, Stop date: 10/15/15 17:53:0 0 CDT Notes: (aluminum hydroxide-magnesium hyd-simethicone 530-497-98ex/5ml 30 ml ud S US) Start Date: 09/15/15 Stop Date: 09/16/15 Status: Discontinued ALPRAZOLam 0.25 mg, 1 tab, Route: PO, Drug form: TAB, Q8H, Dosing Weight 115, kg, PRN Anxie ty, Start date: 09/15/15 17:54:00 CDT, Duration: 30 day, Stop date: 10/15/15 17: 53:00 CDT Notes: With food or milk(Same as: Xanax) Start Date: 09/15/15 Stop Date: 09/16/15 Status: Discontinued bisacodyl 10 mg, 1 supp, Route: SD, Drug form: SUPP, Daily, Dosing Weight 115, kg, PRN Con stipation, Start date: 09/15/15 17:54:00 CDT, Duration: 30 day, Stop date: 10/14 17:53:00 CDT Notes: (Same As: Dulcolax, Bisco-Lax) Start Date: 09/15/15 Stop Date: 09/16/15 Status: Discontinued dextromethorphan-guaiFENesin 10 mg-100 mg/5 mL oral liquid 10 mL, Route: PO, Drug Form: SYRP, Dosing Weight 115, kg, Q4H, PRN Cough, Start date: 09/15/15 17:54:00 CDT, Duration: 30 day, Stop date: 10/15/15 17:53:00 CDT Notes: (dextromethorphan-guaifenesin 10-100mg/5ml 10 ml oral SOLN ud) (Same as: Robitussin DM) Start Date: 09/15/15 Stop Date: 09/16/15 Status: Discontinued Dextrose 50% Syringe 25 gm, 50 mL, Route: IVP, Drug Form: INJ, Dosing Weight 104.545, kg, PRN, PRN Bl ood Glucose Results, Start date: 09/14/15 22:59:00 CDT, Duration: 30 day, Stop d ate: 10/14/15 22:58:00 CDT Start Date: 09/14/15 Stop Date: 09/16/15 Status: Discontinued Dextrose 50% Syringe 12.5 gm, 25 mL, Route: IVP, Drug Form: INJ, Dosing Weight 104.545, kg, PRN, PRN Blood Glucose Results, Start date: 09/14/15 22:59:00 CDT, Duration: 30 day, Stop date: 10/14/15 22:58:00 CDT Start Date: 09/14/15 Stop Date: 09/16/15 Status: Discontinued diphenhydrAMINE 25 mg, 1 tab, Route: PO, Drug form: TAB, Q6H, Dosing Weight 115, kg, PRN Itching , Start date: 09/15/15 17:54:00 CDT, Duration: 30 day, Stop date: 10/15/15 17:53 :00 CDT Start Date: 09/15/15 Stop Date: 09/16/15 Status: Discontinued glucagon 1 mg, Route: IM, Drug form: PDR/INJ, PRN, Dosing Weight 104.545, kg, PRN Blood G lucose Results, Start date: 09/14/15 22:59:00 CDT, Duration: 30 day, Stop date: 10/14/15 22:58:00 CDT Start Date: 09/14/15 Stop Date: 09/16/15 Status: Discontinued Glucotrol 5 mg, 1 tab, Route: PO, Drug form: TAB, BID-Before Meals, Dosing Weight 104.545, kg, Start date: 09/15/15 7:30:00 CDT, Duration: 30 day, Stop date: 10/14/15 16: 30:00 CDT Notes: (Same as: Glucotrol) 30 min before meals. Start Date: 09/15/15 Stop Date: 09/16/15 Status: Discontinued insulin aspart 1 unit, 0.01 mL, Route: SUB-Q, Drug form: SOLN, TID-Before Meals, Dosing Weight 104.545, kg, PRN Blood Glucose Results, Start date: 09/14/15 22:59:00 CDT, Durat ion: 30 day, Stop date: 10/14/15 22:58:00 CDT Notes: Roll in palms of hands gently; Do not shake vigorously. (Same as: Ortiz Dunlap)"single patient use only"WASTE: F/P - Black; E - Municipal Trash Bin Stable f or 28 days at room temperature.Expires in days from Date Start Date: 09/14/15 Stop Date: 09/16/15 Status: Discontinued insulin aspart 4 unit, 0.04 mL, Route: SUB-Q, Drug form: SOLN, TID-Before Meals, Dosing Weight 104.545, kg, PRN Blood Glucose Results, Start date: 09/14/15 22:59:00 CDT, Durat ion: 30 day, Stop date: 10/14/15 22:58:00 CDT Notes: Roll in palms of hands gently; Do not shake vigorously. (Same as: NovoCATIA Dunlap)"single patient use only"WASTE: F/P - Black; E - Municipal Trash Bin Stable f or 28 days at room temperature.Expires in days from Date Start Date: 09/14/15 Stop Date: 09/16/15 Status: Discontinued insulin aspart 5 unit, 0.05 mL, Route: SUB-Q, Drug form: SOLN, TID-Before Meals, Dosing Weight 104.545, kg, PRN Blood Glucose Results, Start date: 09/14/15 22:59:00 CDT, Durat ion: 30 day, Stop date: 10/14/15 22:58:00 CDT Notes: Roll in palms of hands gently; Do not shake vigorously. (Same as: Ortiz Dunlap)"single patient use only"WASTE: F/P - Black; E - Municipal Trash Bin Stable f or 28 days at room temperature.Expires in days from Date Start Date: 09/14/15 Stop Date: 09/16/15 Status: Discontinued insulin aspart 3 unit, 0.03 mL, Route: SUB-Q, Drug form: SOLN, TID-Before Meals, Dosing Weight 104.545, kg, PRN Blood Glucose Results, Start date: 09/14/15 22:59:00 CDT, Durat ion: 30 day, Stop date: 10/14/15 22:58:00 CDT Notes: Roll in palms of hands gently; Do not shake vigorously. (Same as: Ortiz Dunlap)"single patient use only"WASTE: F/P - Black; E - Municipal Trash Bin Stable f or 28 days at room temperature.Expires in days from Date Start Date: 09/14/15 Stop Date: 09/16/15 Status: Discontinued insulin aspart 2 unit, 0.02 mL, Route: SUB-Q, Drug form: SOLN, TID-Before Meals, Dosing Weight 104.545, kg, PRN Blood Glucose Results, Start date: 09/14/15 22:59:00 CDT, Durat ion: 30 day, Stop date: 10/14/15 22:58:00 CDT Notes: Roll in palms of hands gently; Do not shake vigorously. (Same as: Ortiz Dunlap)"single patient use only"WASTE: F/P - Black; E - Municipal Trash Bin Stable f or 28 days at room temperature.Expires in days from Date Start Date: 09/14/15 Stop Date: 09/16/15 Status: Discontinued levothyroxine 200 microgram, 1 tab, Route: PO, Drug form: TAB, Daily, Dosing Weight 104.545, k g, Start date: 09/15/15 6:30:00 CDT, Duration: 30 day, Stop date: 10/14/15 6:30: 00 CDT Notes: Take 1 hour before or 2 hours after meal; Enteral feeds may interefere wi th the absorption of this medication. (Same as: Levothroid) Start Date: 09/15/15 Stop Date: 09/16/15 Status: Discontinued levothyroxine 100 mcg (0.1 mg) intravenous injection 50 microgram, IVP, Q630AM, # 30 tab, 0 Refill(s) Start Date: 09/16/15 Stop Date: 09/16/15 Status: Completed levothyroxine 200 mcg (0.2 mg) oral tablet 200 microgram = 1 tab, PO, Daily, # 30 tab, 0 Refill(s) Start Date: 09/16/15 Status: Ordered lisinopril 10 mg oral tablet 10 mg = 1 tab, PO, Daily, # 30 tab, 0 Refill(s) Start Date: 09/15/15 Status: Ordered Milk of Magnesia 30 mL, Route: PO, Drug Form: SUSP, Dosing Weight 115, kg, Q3H, PRN Constipation, Start date: 09/15/15 17:54:00 CDT, Duration: 2 doses or times, Stop date: Limit ed # of times Notes: (Same as: Milk of Magnesia, MOM) Start Date: 09/15/15 Stop Date: 09/16/15 Status: Discontinued morphine Sulfate 4 mg, 2 mL, Route: IVP, Drug form: INJ, Q3H, Dosing Weight 104.545, kg, PRN Pain Score 4-6, Start date: 09/14/15 21:43:00 CDT, Duration: 30 day, Stop date: 10/02 07/20 21:42:00 CDT Notes: (Same as:MORPhine Sulfate) Start Date: 09/14/15 Stop Date: 09/16/15 Status: Discontinued NS (Bolus) IV 1,000 mL, 1,000 ml/hr, Infuse Over: 1 hr, Route: IV, 1,000, Drug form: INJ, ONCE , Priority: STAT, Dosing Weight 104.545 kg, Start date: 09/14/15 18:57:00 CDT, D uration: 1 doses or times, Stop date: 09/14/15 18:57:00 CDT Start Date: 09/14/15 Stop Date: 09/14/15 Status: Completed ondansetron 4 mg, 2 mL, Route: IVP, Drug form: INJ, Q8H, Dosing Weight 115, kg, PRN Nausea & Vomiting, Start date: 09/15/15 17:54:00 CDT, Duration: 30 day, Stop date: 10/14 17:53:00 CDT Notes: (Same as: Ernesto) MEDICATION WASTE Product Size: 4 mgProduct Was eugene: ___ mg Start Date: 09/15/15 Stop Date: 09/16/15 Status: Discontinued ondansetron 4 mg, 2 mL, Route: IVP, Drug form: INJ, Q6H, Dosing Weight 104.545, kg, PRN Naus ea & Vomiting, Start date: 09/14/15 21:43:00 CDT, Duration: 30 day, Stop date: 10/14/15 21:42:00 CDT Notes: (Same as: Ernesto) MEDICATION WASTE Product Size: 4 mgProduct Was eugene: ___ mg Start Date: 09/14/15 Stop Date: 09/15/15 Status: Discontinued Rocephin + Sodium Chloride 0.9% IV 100 mL 1 gm, Route: IVPB, [id number], Dosing Weight 115, kg, Start date: 09/15/15 18:00:00 CDT, Duration: 30 day, Stop date: 10/14/15 18:00:00 CDT Notes: (Same As: Rocephin).Use with 100 mL NS and infuse over 30 min MEDICA TION WASTE Product Size: 1000 mgProduct Wasted: ___ mg Start Date: 09/15/15 Stop Date: 09/16/15 Status: Discontinued Saline Flush 0.9% 10 mL, Route: IVP, Drug Form: INJ, Dosing Weight 104.545, kg, PRN, PRN Line Flus h, Start date: 09/14/15 15:01:00 CDT, Duration: 30 day, Stop date: 10/14/15 15:0 0:00 CDT Notes: (Same as: BD Posiflush) Start Date: 09/14/15 Stop Date: 09/16/15 Status: Discontinued Saline Flush 0.9% 10 ml, Route: IVP, Drug Form: INJ, Dosing Weight 104.545, kg, PRN, PRN Line Flus h, Start date: 09/14/15 21:43:00 CDT, Duration: 30 day, Stop date: 10/14/15 21:4 2:00 CDT Notes: (Same as: BD Posiflush) Start Date: 09/14/15 Stop Date: 09/16/15 Status: Discontinued simethicone 80 mg, 1 tab, Route: PO, Drug form: CHEWTAB, Q6H, Dosing Weight 115, kg, PRN Gas , Start date: 09/15/15 17:54:00 CDT, Duration: 2 doses or times, Stop date: Beth knight # of times Notes: (Same as: Alexis) Start Date: 09/15/15 Stop Date: 09/16/15 Status: Discontinued Sodium Chloride 0.9% (Bolus) IV 1,000 mL, 1,000 ml/hr, Infuse Over: 1 hr, Route: IV, 1,000, Drug form: INJ, ONCE , Priority: STAT, Dosing Weight 104.545 kg, Start date: 09/14/15 18:57:00 CDT, D uration: 1 doses or times, Stop date: 09/14/15 18:57:00 CDT Start Date: 09/14/15 Stop Date: 09/14/15 Status: Completed Sodium Chloride 0.9% IV 1,000 mL 1,000 mL, Rate: 150 ml/hr, Infuse over: 6.7 hr, Route: IV, Dosing Weight 104.545 kg, Total Volume: 1,000, Start date: 09/14/15 21:43:00 CDT, Duration: 30 day, S top date: 10/14/15 21:42:00 CDT Start Date: 09/14/15 Stop Date: 09/16/15 Status: Discontinued Synthroid 50 microgram, Route: IVP, Drug form: INJ, Q630AM, Dosing Weight 104.545, kg, Sta rt date: 09/15/15 6:30:00 CDT, Duration: 3 day, Stop date: 09/17/15 6:30:00 CDT Notes: (Same as: Synthroid)Reconstitute with 5ml of NS. Final concentration = 2 0 micrograms/ml. Use immediately after reconstitution and discard remaining solu tion. Start Date: 09/15/15 Stop Date: 09/16/15 Status: Discontinued temazepam 15 mg, 1 cap, Route: PO, Drug form: CAP, Bedtime, Dosing Weight 115, kg, PRN Ins omnia, Start date: 09/15/15 17:54:00 CDT, Duration: 30 day, Stop date: 10/15/15 17:53:00 CDT Notes: (Same As: Restoril) Start Date: 09/15/15 Stop Date: 09/16/15 Status: Discontinued Vantin 200 mg oral tablet 200 mg = 1 tab, PO, Q12H, X 7 day, # 14 tab, 0 Refill(s) Start Date: 09/16/15 Stop Date: 09/23/15 Status: Ordered Venofer + Sodium Chloride 0.9% IV 235 mL 300 mg, 15 mL, Route: IVPB, ONCE, Dosing Weight 104.545, kg, Start date: 6 22:57:00 CDT, Duration: 1 doses or times, Stop date: 09/14/15 22:57:00 CDT Notes: Each 5ml contains 100mg elemental iron. Mix with NS(Same as:Venofer)Admi nister IV only. MEDICATION WASTE Product Size: 100 mgProduct Wasted: _ __ mg Start Date: 09/14/15 Stop Date: 09/15/15 Status: Completed Results BLOOD BANK RESULTS 1 2 3 Most recent to oldest [Reference Range]: O NEG *Unknown* (09/14/15 7:31 PM) ABO/Rh Negative (09/14/15 7:31 PM) Antibody Scrn Product available 1 (09/15/15 5:52 PM) RBC product 1Result Comment: 09/15/2015 18:16 [id number] Called to Arelis Anthony at 09/15/2015 18:16 by Shar Flores. ELECTROLYTES 1 2 3 Most recent to oldest [Reference Range]: 136 mEq/L (09/16/15 9:00 AM) 136 mEq/L (09/15/15 3:36 AM) 132 mEq/L *LOW* (09/14/15 3:20 PM) Sodium Lvl [135-145 mEq/L] 4.3 mEq/L (09/16/15 9:00 AM) 4.0 mEq/L (09/15/15 3:36 AM) 3.8 mEq/L (09/14/15 3:20 PM) Potassium Lvl [3.5-5.1 mEq/L] 99 mEq/L (09/16/15 9:00 AM) 102 mEq/L (09/15/15 3:36 AM) 97 mEq/L (09/14/15 3:20 PM) Chloride Lvl [95-109 mEq/L] 28 mEq/L (09/16/15 9:00 AM) 26 mEq/L (09/15/15 3:36 AM) 28 mEq/L (09/14/15 3:20 PM) CO2 [24-32 mEq/L] 13.3 mEq/L (09/16/15 9:00 AM) 12.0 mEq/L (09/15/15 3:36 AM) 10.8 mEq/L (09/14/15 3:20 PM) AGAP [10.0-20.0 mEq/L] CHEM PANEL 1 2 3 Most recent to oldest [Reference Range]: 1.19 mg/dL (09/16/15 9:00 AM) 1.17 mg/dL (09/15/15 3:36 AM) 1.46 mg/dL *HI* (09/14/15 3:20 PM) Creatinine Lvl [0.50-1.40 mg/dL] 58 mL/min/1.73m2 1 *NA* (09/16/15 9:00 AM) 60 mL/min/1.73m2 2 *NA* (09/15/15 3:36 AM) 46 mL/min/1.73m2 3 *NA* (09/14/15 3:20 PM) eGFR 8 mg/dL (09/16/15 9:00 AM) 13 mg/dL (09/15/15 3:36 AM) 14 mg/dL (09/14/15 3:20 PM) BUN [7-22 mg/dL] 10 (09/14/15 3:20 PM) B/C Ratio [6-25] 173 mg/dL *HI* (09/16/15 9:00 AM) 229 mg/dL *HI* (09/15/15 3:36 AM) 219 mg/dL *HI* (09/14/15 3:20 PM) Glucose Lvl [70-99 mg/dL] 7.9 g/dL (09/14/15 3:20 PM) Total Protein [6.4-8.4 g/dL] 3.9 g/dL (09/14/15 3:20 PM) Albumin Lvl [3.5-5.0 g/dL] 4.0 g/dL (09/14/15 3:20 PM) Globulin [2.0-4.0 g/dL] 1.0 (09/14/15 3:20 PM) A/G Ratio [0.7-1.6] 8.4 mg/dL *LOW* (09/16/15 9:00 AM) 7.9 mg/dL *LOW* (09/15/15 3:36 AM) 8.2 mg/dL *LOW* (09/14/15 3:20 PM) Calcium Lvl [8.5-10.5 mg/dL] 63 unit/L (09/14/15 3:20 PM) ALT [0-65 unit/L] 87 unit/L *HI* (09/14/15 3:20 PM) AST [0-37 unit/L] 120 unit/L (09/14/15 3:20 PM) Alk Phos [39-136 unit/L] 0.2 mg/dL (09/14/15 3:20 PM) Bili Total [0.2-1.3 mg/dL] 1Result Comment: The eGFR is calculated using the CKD-EPI formula. In most young, healthy individuals the eGFR will be >90 mL/min/1.73m2. The eGFR declines with age. An eGFR of 60-89 may be normal in some populations, particularly the elderly, for whom the CKD-EPI formula has not been extensively validated. Use of the eGFR is not recommended in the following populations: Individuals with unstable creatinine concentrations, including patients and those with serious co-morbid conditions. Patients with extremes in muscle mass or diet. The data above are obtained from the National Kidney Disease Education Program ( NKDEP) which additionally recommends that when the eGFR is used in patients with extremes of body mass index for purposes of drug dosing, the eGFR should be mul tiplied by the estimated BMI. 2Result Comment: The eGFR is calculated using the CKD-EPI formula. In most young, healthy individuals the eGFR will be >90 mL/min/1.73m2. The eGFR declines with age. An eGFR of 60-89 may be normal in some populations, particularly the elderly, for whom the CKD-EPI formula has not been extensively validated. Use of the eGFR is not recommended in the following populations: Individuals with unstable creatinine concentrations, including patients and those with serious co-morbid conditions. Patients with extremes in muscle mass or diet. The data above are obtained from the National Kidney Disease Education Program ( NKDEP) which additionally recommends that when the eGFR is used in patients with extremes of body mass index for purposes of drug dosing, the eGFR should be mul tiplied by the estimated BMI. 3Result Comment: The eGFR is calculated using the CKD-EPI formula. In most young, healthy individuals the eGFR will be >90 mL/min/1.73m2. The eGFR declines with age. An eGFR of 60-89 may be normal in some populations, particularly the elderly, for whom the CKD-EPI formula has not been extensively validated. Use of the eGFR is not recommended in the following populations: Individuals with unstable creatinine concentrations, including patients and those with serious co-morbid conditions. Patients with extremes in muscle mass or diet. The data above are obtained from the National Kidney Disease Education Program ( NKDEP) which additionally recommends that when the eGFR is used in patients with extremes of body mass index for purposes of drug dosing, the eGFR should be mul tiplied by the estimated BMI. CARDIAC ENZYMES 1 2 3 Most recent to oldest [Reference Range]: 927 unit/L *HI* (09/16/15 9:00 AM) 1159 unit/L *HI* (09/15/15 3:36 AM) 1400 unit/L *HI* (09/14/15 3:20 PM) Total CK [12-191 unit/L] 7.2 ng/mL *HI* (09/14/15 3:20 PM) CK MB [0.5-3.6 ng/mL] 0.5 (09/14/15 3:20 PM) CK MB Index [0.0-2.5] <0.02 ng/mL (09/14/15 3:20 PM) Troponin-I [0.00-0.40 ng/mL] ANEMIA STUDY 1 2 3 Most recent to oldest [Reference Range]: 533 ug/dl *HI* (09/15/15 3:36 AM) 18 ug/dl *LOW* (09/14/15 7:31 PM) Iron [30-160 ug/dl] 5 ng/mL (09/15/15 3:36 AM) 4 ng/mL *LOW* (09/14/15 7:31 PM) Ferritin Lvl [5-204 ng/mL] 3 % *LOW* (09/14/15 7:31 PM) % Satur Fe [12-57 %] 632 ug/dl *HI* (09/14/15 7:31 PM) UIBC [110-370 ug/dl] 666 pg/mL (09/15/15 3:36 AM) Vitamin B12 Lvl [254-1320 pg/mL] 8.5 ng/mL (09/15/15 3:36 AM) Folate Lvl [>=3.0 ng/mL] 650 ug/dl *HI* (09/14/15 7:31 PM) TIBC [228-428 ug/dl] URINE AND STOOL 1 2 3 Most recent to oldest [Reference Range]: Slight *ABN* (09/14/15 6:54 PM) UA Turbidity [Clear] Yellow *NA* (09/14/15 6:54 PM) UA Color [Yellow] 6.0 (09/14/15 6:54 PM) UA pH [5.0-8.0] 1.012 (09/14/15 6:54 PM) UA Spec Grav [<=1.030] Negative mg/dL *NA* (09/14/15 6:54 PM) UA Glucose [Negative mg/dL] Small *ABN* (09/14/15 6:54 PM) UA Blood [Negative] Negative mg/dL *NA* (09/14/15 6:54 PM) UA Ketones [Negative mg/dL] Negative mg/dL (09/14/15 6:54 PM) UA Protein [Negative mg/dL] <=1.0 mg/dL *NA* (09/14/15 6:54 PM) UA Urobilinogen [0.1-1.0 mg/dL] Negative *NA* (09/14/15 6:54 PM) UA Bili [Negative] Small *ABN* (09/14/15 6:54 PM) UA Leuk Est [Negative] Positive *ABN* (09/14/15 6:54 PM) UA Nitrite [Negative] 5 /HPF (09/14/15 6:54 PM) UA WBC [0-5 /HPF] 2 /HPF (09/14/15 6:54 PM) UA RBC [0-2 /HPF] Occasional /HPF *NA* (09/14/15 6:54 PM) UA Bacteria [None Seen /HPF] Occasional /LPF *NA* (09/14/15 6:54 PM) UA Sq Epi [Few /LPF] Negative (09/14/15 8:00 PM) Occult Bld Stl [Negative] HEMATOLOGY 1 2 3 Most recent to oldest [Reference Range]: 12.5 K/CMM *HI* (09/16/15 9:00 AM) 11.2 K/CMM *HI* (09/15/15 7:05 PM) 10.8 K/CMM *HI* (09/15/15 3:36 AM) WBC [3.7-10.4 K/CMM] 4.67 M/CMM (09/16/15 9:00 AM) 3.72 M/CMM *LOW* (09/15/15 7:05 PM) 3.69 M/CMM *LOW* (09/15/15 3:36 AM) RBC [4.20-5.40 M/CMM] 10.0 g/dL *LOW* (09/16/15 9:00 AM) 7.2 g/dL *LOW* (09/15/15 7:05 PM) 7.2 g/dL *LOW* (09/15/15 3:36 AM) Hgb [12.0-16.0 g/dL] 34.1 % *LOW* (09/16/15 9:00 AM) 25.2 % *LOW* (09/15/15 7:05 PM) 25.0 % *LOW* (09/15/15 3:36 AM) Hct [36.0-48.0 %] 73.0 fL *LOW* (09/16/15 9:00 AM) 67.8 fL *LOW* (09/15/15 7:05 PM) 67.8 fL *LOW* (09/15/15 3:36 AM) MCV [80.0-98.0 fL] 21.4 pg *LOW* (09/16/15 9:00 AM) 19.3 pg *LOW* (09/15/15 7:05 PM) 19.6 pg *LOW* (09/15/15 3:36 AM) MCH [27.0-31.0 pg] 29.4 g/dL *LOW* (09/16/15 9:00 AM) 28.5 g/dL *LOW* (09/15/15 7:05 PM) 28.9 g/dL *LOW* (09/15/15 3:36 AM) MCHC [32.0-36.0 g/dL] 23.6 % *HI* (09/16/15 9:00 AM) 20.7 % *HI* (09/15/15 7:05 PM) 21.0 % *HI* (09/15/15 3:36 AM) RDW [11.5-14.5 %] 552 K/CMM *HI* (09/16/15 9:00 AM) 548 K/CMM *HI* (09/15/15 7:05 PM) 517 K/CMM *HI* (09/15/15 3:36 AM) Platelet [133-450 K/CMM] 8.1 fL (09/16/15 9:00 AM) 7.9 fL (09/15/15 7:05 PM) 8.1 fL (09/15/15 3:36 AM) MPV [7.4-10.4 fL] 67.3 % (09/16/15 9:00 AM) 69.3 % (09/15/15 3:36 AM) 61.3 % (09/14/15 3:20 PM) Segs [45.0-75.0 %] 21.6 % (09/16/15 9:00 AM) 22.4 % (09/15/15 3:36 AM) 28.3 % (09/14/15 3:20 PM) Lymphocytes [20.0-40.0 %] 4.2 % (09/16/15 9:00 AM) 3.7 % (09/15/15 3:36 AM) 4.6 % (09/14/15 3:20 PM) Monocytes [2.0-12.0 %] 5.0 % *HI* (09/16/15 9:00 AM) 4.2 % *HI* (09/15/15 3:36 AM) 4.0 % (09/14/15 3:20 PM) Eosinophils [0.0-4.0 %] 1.9 % *HI* (09/16/15 9:00 AM) 0.4 % (09/15/15 3:36 AM) 1.8 % *HI* (09/14/15 3:20 PM) Basophils [0.0-1.0 %] 8.4 K/CMM *HI* (09/16/15 9:00 AM) 7.5 K/CMM (09/15/15 3:36 AM) 6.2 K/CMM (09/14/15 3:20 PM) Segs-Bands # [1.5-8.1 K/CMM] 2.7 K/CMM (09/16/15 9:00 AM) 2.4 K/CMM (09/15/15 3:36 AM) 2.9 K/CMM (09/14/15 3:20 PM) Lymphocytes # [1.0-5.5 K/CMM] 0.5 K/CMM (09/16/15 9:00 AM) 0.4 K/CMM (09/15/15 3:36 AM) 0.5 K/CMM (09/14/15 3:20 PM) Monocytes # [0.0-0.8 K/CMM] 0.6 K/CMM *HI* (09/16/15 9:00 AM) 0.5 K/CMM (09/15/15 3:36 AM) 0.4 K/CMM (09/14/15 3:20 PM) Eosinophils # [0.0-0.5 K/CMM] 0.2 K/CMM (09/16/15 9:00 AM) 0.2 K/CMM (09/14/15 3:20 PM) Basophils # [0.0-0.2 K/CMM] See Note (09/15/15 3:36 AM) See Note (09/14/15 3:20 PM) RBC Morph 1+ *ABN* (09/15/15 3:36 AM) Anisocyte [None Seen] 2+ (09/16/15 9:00 AM) 2+ (09/15/15 3:36 AM) 1+ (09/14/15 3:20 PM) Hypochrom [None Seen] 1+ *ABN* (09/16/15 9:00 AM) 3+ *NA* (09/15/15 3:36 AM) 2+ *ABN* (09/14/15 3:20 PM) Microcyte [None Seen] Normal (09/16/15 9:00 AM) Normal (09/15/15 3:36 AM) Normal (09/14/15 3:20 PM) Plt Morph Immunizations Vaccine Date Refusal Reason influenza virus vaccine, inactivated 03/17/14 P atient Refuses pneumococcal 23-valent vaccine 03/17/14 Patient Refuses Procedures Procedure Date Related Diagnosis Body Site Total thyroidectomy 04/18/13 Biopsy of lymph node1 section Tubal ligation 1x2 Social History Social History Type Response Substance Abuse Use: None. Alcohol Current, Type Beer, Wine. Frequency: 1-2 times per month. Smoking Status Never smoker; Exposure to T obacco Smoke None; Cigarette Smoking Last 365 Days No; Reg Smoking Cessation Counseli ng No Assessment and Plan No data available for this section
--- OUTSIDE RECORDS SUMMARY | 2020-01-09 19:52 | XMS REPORT | Summary of Care ---
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) - Hypothyroidism, unspecified (Final) - Presence of aortocoronary bypass graft (Final) - Presence of (intrauterine) contraceptive device (Final) - Essential (primary) hypertension (Final) - Type 2 diabetes mellitus with diabetic neuropathy, unspecified (Final) - Allergy status to other antibiotic agents status (Final) - Coronary angioplasty status (Final) - Personal history of Hodgkin lymphoma (Final) - Hormone replacement therapy (Final) - 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) - Other ovarian cyst, right side (Final) - prison (current) use of 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/antiplatelets (Final) - prison (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 (Final) - prison (current) use of oral hypoglycemic drugs (Final) - Other long term care administrator (current) drug therapy (Final) - Unspecified right bundle-branch block (Final) - Other specified abnormal uterine and vaginal bleeding (Final) - Family history of diabetes mellitus (Final) - Tubal ligation status (Final) - Discharge Disposition: Home or Self Care Attending Physician: Crys Ruano MD Admitting Physician: Crys Ruano MD Vital Signs 1 2 3 Most recent to oldest [Reference Range]: 162.56 cm (03/12/18 5:11 PM) Height 98 DegF (03/13/18 11:28 AM) 98 DegF (03/13/18 7:17 AM) 97.8 DegF (03/13/18 3:46 AM) Temperature Oral [96.4-99.1 DegF] 141/85 mmHg *HI* (03/13/18 11:28 AM) 99/63 mmHg (03/13/18 7:17 AM) 98/63 mmHg (03/13/18 3:46 AM) Blood Pressure [90-140/60-90 mmHg] 18 BRMIN (03/13/18 11:28 AM) 17 BRMIN (03/13/18 7:17 AM) 17 BRMIN (03/13/18 3:46 AM) Respiratory Rate [14-20 BRMIN] 87 bpm (03/13/18 11:28 AM) 81 bpm (03/13/18 7:17 AM) 80 bpm (03/13/18 3:46 AM) Peripheral Pulse Rate [60-100 bpm] 93.182 kg (03/12/18 5:11 PM) Weight 35.26 m2 (03/12/18 5:11 PM) Body Mass Index Problem List Condition Effective Dates Status Health Status Informan t Anemia(Confirmed) Active Diabetes(Confirmed) Resolved Fever(Confirmed) Active Hodgkins Resolved lymphoma(Confirmed) Hypertension(Confirm Resolved ed) Neuropathy(Confirmed Resolved )1 Shortness of Active breath(Confirmed) Thyroidectomy(Confir Resolved med) 1affects legs Allergies, Adverse Reactions, Alerts Substance Reaction Severity Status vancomycin Active Medications aspirin 81 mg tablet, enteric coated 81 mg, 1 tab, Route: PO, Drug form: ECTAB, Daily, Dosing Weight 93.182, kg, Star t date: 03/13/18 10:00:00 CDT, Duration: 30 day, Stop date: 04/12/18 9:00:00 [employer]URITY [employer]ROL OFFICER Notes: Do not crush or chew.(Same As: Ecotrin) Start Date: 03/13/18 Stop Date: 03/13/18 Status: Discontinued aspirin 81 mg tablet, enteric coated 81 mg = 1 tab, PO, Daily, 0 Refill(s) Start Date: 03/12/18 Status: Ordered Benadryl 25 mg, 0.5 mL, Route: IV, Drug form: INJ, ONCE, Dosing Weight 93.182, kg, Start date: 03/12/18 18:28:00 CDT, Stop date: 03/12/18 18:28:00 CDT Notes: (Same as: Vineetl) Start Date: 03/12/18 Stop Date: 03/12/18 Status: Completed Dextrose 50% Syringe 25 gm, 50 mL, Route: IVP, Drug Form: INJ, Dosing Weight 93.182, kg, PRN, PRN Blo od Glucose Results, Start date: 03/12/18 22:23:00 CDT, Duration: 30 day, Stop da te: 04/11/18 21:22:00 SECURITY PATROL OFFICER Start Date: 03/12/18 Stop Date: 03/13/18 Status: Discontinued Dextrose 50% Syringe 12.5 gm, 25 mL, Route: IVP, Drug Form: INJ, Dosing Weight 93.182, kg, PRN, PRN B lood Glucose Results, Start date: 03/12/18 22:23:00 CDT, Duration: 30 day, Stop date: 04/11/18 21:22:00 SECURITY [employer]ROL OFFICER Start Date: 03/12/18 Stop Date: 03/13/18 Status: Discontinued glipiZIDE-metformin 2.5 mg-250 mg oral tablet 1 tab, Route: PO, Drug Form: TAB, Dosing Weight 93.182, kg, Daily, Start date: 9:00:00 CDT, Duration: 30 day, Stop date: 04/11/18 9:00:00 SECURITY PATROL OFFICER Start Date: 03/13/18 Stop Date: 03/12/18 Status: Deleted glipiZIDE-metformin 2.5 mg-250 mg oral tablet 1 tab, PO, Daily, 0 Refill(s) Start Date: 03/12/18 Status: Ordered glucagon 1 mg, Route: IM, Drug form: PDR/INJ, PRN, Dosing Weight 93.182, kg, PRN Blood Gl ucose Results, Start date: 03/12/18 22:23:00 CDT, Duration: 30 day, Stop date: 06/11/17 21:22:00 SECURITY PATROL OFFICER Start Date: 03/12/18 Stop Date: 03/13/18 Status: Discontinued Glucophage 250 mg, 0.5 tab, Route: PO, Drug form: TAB, Daily, Start date: 03/13/18 9:00:00 CDT, Duration: 30 day, Stop date: 04/11/18 9:00:00 SECURITY PATROL OFFICER Notes: (Same as: Glucophage) Take with meal Start Date: 03/13/18 Stop Date: 03/13/18 Status: Discontinued Glucotrol 2.5 mg, 0.5 tab, Route: PO, Drug form: TAB, Before Breakfast, Start date: 7:30:00 CDT, Duration: 30 day, Stop date: 04/11/18 7:30:00 SECURITY PATROL OFFICER Notes: (Same as: Glucotrol) 30 min before meals. Start Date: 03/13/18 Stop Date: 03/13/18 Status: Discontinued hydrOXYzine hydrochloride 25 mg oral tablet 25 mg, 1 tab, Route: PO, Drug form: TAB, TID, Dosing Weight 93.182, kg, PRN Anxi ety, Start date: 03/12/18 18:29:00 CDT, Duration: 30 day, Stop date: 04/11/18 18 :28:00 SECURITY PATROL OFFICER Notes: (Same as: Atarax) Avoid alcohol. Start Date: 03/12/18 Stop Date: 03/13/18 Status: Discontinued hydrOXYzine hydrochloride 25 mg oral tablet 25 mg = 1 tab, PO, TID, PRN as needed for anxiety, 0 Refill(s) Start Date: 03/12/18 Status: Ordered insulin lispro 1 unit, 0.01 mL, Route: SUB-Q, Drug form: SOLN, Bedtime, Dosing Weight 93.182, k g, PRN Blood Glucose Results, Start date: 03/12/18 22:23:00 CDT, Duration: 30 da y, Stop date: 04/11/18 22:22:00 SECURITY PATROL OFFICER Notes: (Same as: Humalog ) Roll in palms of hands gently; Do not shake `vigorou sly. "Single Patient Use Only " WASTE: F/P - Black; E - Municipal Trash [address] able for 28 days at room temperature.Expires in days from Da te Start Date: 03/12/18 Stop Date: 03/13/18 Status: Discontinued insulin lispro 2 unit, 0.02 mL, Route: SUB-Q, Drug form: SOLN, Bedtime, Dosing Weight 93.182, k g, PRN Blood Glucose Results, Start date: 03/12/18 22:23:00 CDT, Duration: 30 da y, Stop date: 04/11/18 22:22:00 SECURITY PATROL OFFICER Notes: (Same as: Humalog ) Roll in palms of hands gently; Do not shake `vigorou sly. "Single Patient Use Only " WASTE: F/P - Black; E - [employer] [address] able for 28 days at room temperature.Expires in days from Da te Start Date: 03/12/18 Stop Date: 03/13/18 Status: Discontinued insulin lispro 3 unit, 0.03 mL, Route: SUB-Q, Drug form: SOLN, Bedtime, Dosing Weight 93.182, k g, PRN Blood Glucose Results, Start date: 03/12/18 22:23:00 CDT, Duration: 30 da y, Stop date: 04/11/18 22:22:00 SECURITY PATROL OFFICER Notes: (Same as: Humalog ) Roll in palms of hands gently; Do not shake `vigorou sly. "Single Patient Use Only " WASTE: F/P - Black; E - [employer] Tr[employer] [address] able for 28 days at room temperature.Expires in days from Da te Start Date: 03/12/18 Stop Date: 03/13/18 Status: Discontinued insulin lispro 4 unit, 0.04 mL, Route: SUB-Q, Drug form: SOLN, Bedtime, Dosing Weight 93.182, k g, PRN Blood Glucose Results, Start date: 03/12/18 22:23:00 CDT, Duration: 30 da y, Stop date: 04/11/18 22:22:00 SECURITY PATROL OFFICER Notes: (Same as: Humalog ) Roll in palms of hands gently; Do not shake `vigorou sly. "Single Patient Use Only " WASTE: F/P - Black; E - [employer] [address] [address] able for 28 days at room temperature.Expires in days from Da te Start Date: 03/12/18 Stop Date: 03/13/18 Status: Discontinued levothyroxine 200 microgram, 1 tab, Route: PO, Drug form: TAB, Q630AM, Dosing Weight 93.182, k g, Start date: 03/13/18 6:30:00 CDT, Duration: 30 day, Stop date: 04/11/18 6:30: 00 SECURITY PATROL OFFICER Notes: Take 1 hour before or 2 hours after meal; Enteral feeds may interefere wi th the absorption of this medication. (Same as: Levothroid) Start Date: 03/13/18 Stop Date: 03/13/18 Status: Discontinued levothyroxine 175 microgram, 1 tab, Route: PO, Drug form: TAB, Q630AM, Dosing Weight 93.182, k g, Start date: 03/13/18 6:30:00 CDT, Duration: 30 day, Stop date: 04/11/18 6:30: 00 SECURITY PATROL OFFICER Notes: Take 1 hour before or 2 hours after meal; Enteral feeds may interefere wi th the absorption of this medication. (Same as: Levothroid, Synthroid) Start Date: 03/13/18 Stop Date: 03/13/18 Status: Discontinued levothyroxine 175 mcg (0.175 mg) oral tablet 175 microgram = 1 tab, PO, Daily, 0 Refill(s) Start Date: 03/12/18 Status: Ordered levothyroxine 200 mcg (0.2 mg) oral tablet 200 microgram = 1 tab, PO, Daily, 0 Refill(s) Start Date: 03/12/18 Status: Ordered Lipitor 80 mg, 2 tab, Route: PO, Drug form: TAB, Bedtime, Dosing Weight 93.182, kg, Star t date: 03/12/18 21:00:00 CDT, Duration: 30 day, Stop date: 04/10/18 21:00:00 CS T Notes: (Same as: Lipitor) Start Date: 03/12/18 Stop Date: 03/13/18 Status: Discontinued Lipitor 80 mg oral tablet 80 mg = 1 tab, PO, Bedtime, 0 Refill(s) Start Date: 03/12/18 Status: Ordered Lyrica 75 mg, 1 cap, Route: PO, Drug form: CAP, BID, Dosing Weight 93.182, kg, Start da te: 03/12/18 19:02:00 CDT, Duration: 30 day, Stop date: 04/11/18 17:00:00 SECURITY PATROL OFFICER Notes: (Same as: Lyrica) Start Date: 03/12/18 Stop Date: 03/13/18 Status: Discontinued Lyrica 75 mg oral capsule 75 mg = 1 cap, PO, BID, 0 Refill(s) Start Date: 03/12/18 Status: Ordered metoprolol succinate 25 mg oral capsule, extended release 25 mg = 1 cap, PO, BID, 0 Refill(s) Start Date: 03/12/18 Status: Ordered metoprolol tartrate 25 mg, 1 tab, Route: PO, Drug form: TAB, Q12H, Dosing Weight 93.182, kg, Start d ate: 03/12/18 21:00:00 CDT, Duration: 30 day, Stop date: 04/11/18 9:00:00 SECURITY PATROL OFFICER Notes: (Same as: Lopressor) Start Date: 03/12/18 Stop Date: 03/13/18 Status: Discontinued morphine Sulfate 2 mg, 0.5 mL, Route: IVP, Drug form: SOLN, Q15Min, Dosing Weight 93.182, kg, PRN Chest Pain, Start date: 03/12/18 18:34:00 CDT, Duration: 2 doses or times, Stop date: Limited # of times Notes: (Same as:MORPhine Sulfate) Start Date: 03/12/18 Stop Date: 03/13/18 Status: Discontinued nitroglycerin SL Tab 0.4 mg, 1 tab, Route: SL, Drug form: TAB, Q5Min, Dosing Weight 93.182, kg, PRN C hest Pain, Start date: 03/12/18 18:34:00 CDT, Duration: 3 doses or times, Stop d ate: Limited # of times Notes: (Same as:Nitroquick, Nitrostat)"Do Not Crush" Sublingual tablet Start Date: 03/12/18 Stop Date: 03/13/18 Status: Discontinued Tyler 10/325 oral tablet 1 tab, PO, Q6H, PRN Pain Score 6-10, 0 Refill(s) Start Date: 03/12/18 Status: Ordered Tyler 10/325 oral tablet 1 tab, Route: PO, Drug Form: TAB, Dosing Weight 93.182, kg, Q6H, PRN Pain Score 6-10, Start date: 03/12/18 18:29:00 CDT, Duration: 30 day, Stop date: 04/11/18 8:28:00 SECURITY PATROL OFFICER Notes: Do not exceed 4gm/day of acetaminophen. (Same as: Tyler 325/10) Start Date: 03/12/18 Stop Date: 03/13/18 Status: Discontinued ondansetron 4 mg, 1 tab, Route: PO, Drug form: TAB, Q8H, Dosing Weight 93.182, kg, PRN Nause a & Vomiting, Start date: 03/12/18 18:34:00 CDT, Duration: 30 day, Stop date: 04/11/18 18:33:00 SECURITY PATROL OFFICER Notes: (Same as: Zofran) Start Date: 03/12/18 Stop Date: 03/13/18 Status: Discontinued Plavix 75 mg oral tablet 75 mg = 1 tab, PO, Daily, 0 Refill(s) Start Date: 03/12/18 Stop Date: 03/13/18 Status: Discontinued Provera 10 mg, 1 tab, Route: PO, Drug form: TAB, Daily, Dosing Weight 93.182, kg, Start date: 03/12/18 21:00:00 CDT, Duration: 30 day, Stop date: 04/11/18 9:00:00 SECURITY PATROL OFFICER Notes: (Same as: Provera) Start Date: 03/12/18 Stop Date: 03/13/18 Status: Discontinued Provera 10 mg oral tablet 10 mg = 1 tab, PO, Daily, # 14 tab, 0 Refill(s) Start Date: 03/13/18 Stop Date: 03/27/18 Status: Ordered Saline Flush 0.9% 10 ml, Route: IVP, Drug Form: INJ, Dosing Weight 93.182, kg, Q12H, Start date: 1 21:00:00 CDT, Duration: 30 day, Stop date: 04/11/18 9:00:00 SECURITY PATROL OFFICER Notes: (Same as: BD Posiflush) Start Date: 03/12/18 Stop Date: 03/13/18 Status: Discontinued Saline Flush 0.9% 10 ml, Route: IVP, Drug Form: INJ, Dosing Weight 93.182, kg, PRN, PRN Line Flush , Start date: 03/12/18 18:34:00 CDT, Duration: 30 day, Stop date: 04/11/18 17:33 :00 SECURITY PATROL OFFICER Notes: (Same as: BD Posiflush) Start Date: 03/12/18 Stop Date: 03/13/18 Status: Discontinued Saline Flush 0.9% 10 mL, Route: IVP, Drug Form: INJ, Dosing Weight 90.455, kg, PRN, PRN Line Flush , Start date: 03/12/18 12:03:00 CDT, Duration: 30 day, Stop date: 04/11/18 11:02 :00 SECURITY PATROL OFFICER Notes: (Same as: BD Posiflush) Start Date: 03/12/18 Stop Date: 03/13/18 Status: Discontinued sertraline 50 mg, 1 tab, Route: PO, Drug form: TAB, Daily, Dosing Weight 93.182, kg, Start date: 03/13/18 9:00:00 CDT, Duration: 30 day, Stop date: 04/11/18 9:00:00 SECURITY PATROL OFFICER Notes: (Same as: Zoloft) Start Date: 03/13/18 Stop Date: 03/13/18 Status: Discontinued sertraline 50 mg oral tablet 50 mg = 1 tab, PO, Daily, 0 Refill(s) Start Date: 03/12/18 Status: Ordered Sodium Chloride 0.9% (Bolus) IV 1,000 mL, 1000 ml/hr, Infuse Over: 1 hr, Route: IV, 1,000, Drug form: INJ, ONCE, Priority: STAT, Dosing Weight 90.455 kg, Start date: 03/12/18 13:18:00 CDT, Stop date: 03/12/18 13:18:00 CDT Start Date: 03/12/18 Stop Date: 03/12/18 Status: Completed Sodium Chloride 0.9% (titrate) 250 mL 250 mL, Rate: To prime line and flush remaining blood products., Dosing Weight 9 3.182, kg, Route: IV, Total Volume: 250, Start Date: 03/12/18 17:38:00 CDT, Dura tion: 1 day, Stop date: 03/13/18 17:37:00 CDT, Replace Every: 24 hr Start Date: 03/12/18 Stop Date: 03/13/18 Status: Discontinued zolpidem 5 mg, 1 tab, Route: PO, Drug form: TAB, Bedtime, Dosing Weight 93.182, kg, Start date: 03/12/18 21:00:00 CDT, Duration: 30 day, Stop date: 04/10/18 21:00:00 SECURITY PATROL OFFICER Notes: (Same As: Gunnar) Start Date: 03/12/18 Stop Date: 03/13/18 Status: Discontinued zolpidem 5 mg oral tablet 5 mg = 1 tab, PO, Bedtime, 0 Refill(s) Start Date: 03/12/18 Status: Ordered Results 1 2 3 Most recent to oldest [Reference Range]: 7.1 K/CMM (03/13/18 6:32 AM) 6.0 K/CMM (03/12/18 12:37 PM) Neutrophils # [1.5-8.1 K/CMM] 1.5 K/CMM (03/13/18 6:32 AM) 1.5 K/CMM (03/12/18 12:37 PM) Lymphocytes # [1.0-5.5 K/CMM] 0.4 K/CMM (03/13/18 6:32 AM) 0.5 K/CMM (03/12/18 12:37 PM) Monocytes # [0.0-0.8 K/CMM] 0.4 K/CMM (03/13/18 6:32 AM) 0.2 K/CMM (03/12/18 12:37 PM) Eosinophils # [0.0-0.5 K/CMM] 0.1 K/CMM (03/13/18 6:32 AM) 0.1 K/CMM (03/12/18 12:37 PM) Basophils # [0.0-0.2 K/CMM] 87 pg/mL (03/12/18 12:37 PM) BNP [<=100 pg/mL] Normal (03/12/18 12:37 PM) Plt Morph 82 mL/min/1.73m2 1 *NA* (03/13/18 6:32 AM) 84 mL/min/1.73m2 2 *NA* (03/12/18 12:37 PM) eGFR Product available 3 (03/12/18 5:38 PM) RBC product O NEG *Unknown* (03/12/18 2:16 PM) ABO/Rh 0.9 (03/12/18 12:37 PM) A/G Ratio [0.7-1.6] Negative (03/12/18 2:16 PM) Antibody Scrn 3.4 g/dL *LOW* (03/12/18 12:37 PM) Albumin Lvl [3.5-5.0 g/dL] 123 unit/L (03/12/18 12:37 PM) Alk Phos [39-136 unit/L] 22 unit/L (03/12/18 12:37 PM) ALT [0-65 unit/L] 15.9 mEq/L (03/13/18 6:32 AM) 14.2 mEq/L (03/12/18 12:37 PM) AGAP [10.0-20.0 mEq/L] 1+ *ABN* (03/12/18 12:37 PM) Anisocyte [None Seen] 22 unit/L (03/12/18 12:37 PM) AST [0-37 unit/L] 10 (03/12/18 12:37 PM) B/C Ratio [6-25] 0.6 % (03/13/18 6:32 AM) 0.9 % (03/12/18 12:37 PM) Basophils [0.0-1.0 %] 9 mg/dL (03/13/18 6:32 AM) 9 mg/dL (03/12/18 12:37 PM) BUN [7-22 mg/dL] 7.7 mg/dL *LOW* (03/13/18 6:32 AM) 7.6 mg/dL *LOW* (03/12/18 12:37 PM) Calcium Lvl [8.5-10.5 mg/dL] 3.90 (03/13/18 6:32 AM) CHD Risk [3.90-5.80] 156 mg/dL (03/13/18 6:32 AM) Chol [<=199 mg/dL] 169 unit/L (03/12/18 12:37 PM) Total CK [12-191 unit/L] 104 mEq/L (03/13/18 6:32 AM) 102 mEq/L (03/12/18 12:37 PM) Chloride Lvl [95-109 mEq/L] 23 mEq/L *LOW* (03/13/18 6:32 AM) 26 mEq/L (03/12/18 12:37 PM) CO2 [24-32 mEq/L] 0.88 mg/dL (03/13/18:32 AM) 0.87 mg/dL (03/12/18 12:37 PM) Creatinine Lvl [0.50-1.40 mg/dL] 3.7 % (03/13/18:32 AM) 3.0 % (03/12/18 12:37 PM) Eosinophils [0.0-4.0 %] 3.8 g/dL (03/12/18 12:37 PM) Globulin [2.7-4.2 g/dL] 191 mg/dL *HI* (03/13/18:32 AM) 181 mg/dL *HI* (03/12/18 12:37 PM) Glucose Lvl [70-99 mg/dL] 29.2 % *LOW* (03/13/18:32 AM) 25.1 % *LOW* (03/12/18 12:37 PM) Hct [36.0-48.0 %] 40 mg/dL *LOW* (03/13/18:32 AM) HDL [>=61 mg/dL] 9.8 g/dL *LOW* (03/13/18:32 AM) 8.2 g/dL *LOW* (03/12/18 12:37 PM) Hgb [12.0-16.0 g/dL] 1+ (03/12/18 12:37 PM) Hypochrom [None Seen] 1.13 (03/12/18 12:37 PM) INR [0.85-1.17] 3.9 mEq/L (03/13/18:32 AM) 4.2 mEq/L (03/12/18 12:37 PM) Potassium Lvl [3.5-5.1 mEq/L] 91 mg/dL (03/13/18:32 AM) LDL (Calculated) [<=99 mg/dL] 16.2 % *LOW* (03/13/18:32 AM) 18.4 % *LOW* (03/12/18 12:37 PM) Lymphocytes [20.0-40.0 %] 29.3 pg (03/13/18 6:32 AM) 28.8 pg (03/12/18 12:37 PM) MCH [27.0-31.0 pg] 33.5 g/dL (03/13/18 6:32 AM) 32.7 g/dL (03/12/18 12:37 PM) MCHC [32.0-36.0 g/dL] 87.5 fL (03/13/18 6:32 AM) 88.3 fL (03/12/18 12:37 PM) MCV [80.0-98.0 fL] 1+ *ABN* (03/12/18:37 PM) Microcyte [None Seen] 4.2 % (03/13/18:32 AM) 5.6 % (03/12/18 12:37 PM) Monocytes [2.0-12.0 %] 8.1 fL (03/13/18:32 AM) 8.5 fL (03/12/18:37 PM) MPV [7.4-10.4 fL] 139 mEq/L (03/13/18:32 AM) 138 mEq/L (03/12/18 12:37 PM) Sodium Lvl [135-145 mEq/L] 288 K/CMM 4 (03/13/18 6:32 AM) 488 K/CMM *HI* (03/12/18 12:37 PM) Platelet [133-450 K/CMM] slight *NA* (03/12/18 12:37 PM) Polychrom 75.3 % *HI* (03/13/18:32 AM) 72.1 % (03/12/18 12:37 PM) Segs [45.0-75.0 %] 7.2 g/dL (03/12/18 12:37 PM) Total Protein [6.4-8.4 g/dL] 14.5 seconds (03/12/18 12:37 PM) PT [12.0-14.7 seconds] 30.7 seconds (03/12/18 12:37 PM) PTT [22.9-35.8 seconds] 3.33 M/CMM *LOW* (10/10/18 6:32 AM) 2.85 M/CMM *LOW* (03/12/18 12:37 PM) RBC [4.20-5.40 M/CMM] 25.4 % *HI* (03/13/18 6:32 AM) 29.1 % *HI* (03/12/18 12:37 PM) RDW [11.5-14.5 %] Negative *NA* (03/12/18 12:37 PM) S Preg [Negative] 0.3 mg/dL (03/12/18 12:37 PM) Bili Total [0.2-1.3 mg/dL] 126 mg/dL (03/13/18 6:32 AM) Trig [<=149 mg/dL] <0.02 ng/mL (03/13/18 6:32 AM) <0.02 ng/mL (03/12/18 6:16 PM) <0.02 ng/mL (03/12/18 12:37 PM) Troponin-I [0.00-0.40 ng/mL] 9.4 K/CMM (03/13/18 6:32 AM) 8.3 K/CMM (03/12/18 12:37 PM) WBC [3.7-10.4 K/CMM] 25 *NA* (03/13/18 6:32 AM) VLDL 1Result Comment: The eGFR is calculated using [...] tiplied by the estimated BMI. 3Result Comment: 03/12/2018 17:48 [id number] called livier ladd RN CDU at 03/12/2018 17:48 SM 4Result Comment: NO CLOT.03/13/2018 06:44. monisha Immunizations Not Given Vaccine Date Status Refusal Reason pneumococcal 23-valent vaccine 03/17/14 Not Given Patient Refuses influenza virus vaccine, inactivated 03/17/14 Not Given Patient Refuses Procedures Procedure Date Related Diagnosis Body Site Status Total thyroidectomy 04/18/13 Completed Biopsy of lymph node1 Completed CABG x 3 - Coronary artery bypass grafts x 3 Comp leted section Completed Tubal ligation Completed 1x2 Social History Social History Type Response Substance Abuse Use: None. Alcohol Current, Type Beer, Wine. Frequency: 1-2 times per month. Smoking Status Never smoker; Exposure to T obacco Smoke None; Cigarette Smoking Last 365 Days No; Reg Smoking Cessation Counseli ng No entered on: 06/25/18 Assessment and Plan Extracted from: Title: Progress Note PACKAGE SEALER* Author: Nara Acharya Date: 03/13/18 Subjective Vaginal bleeding is going away Review of Systems Constitutional: Negative. Respiratory: Negative, No cough. Gastrointestinal: No nausea, No vomiting, No diarrhea. Genitourinary: Negative. Gynecologic: vaginal spotting. Neurologic: Alert and oriented X4. Psychiatric: Negative. All other systems are negative Health Status Allergies: Allergic Reactions (All) Severity Not Documented Vancomycin- No reactions were documented. Problem list: All Problems Anemia / SNOMED CT 443276890 / Confirmed Fever / SNOMED CT 3670577109 / Confirmed Shortness of breath / SNOMED CT 384250008 / Confirmed Objective Meds Scheduled Meds (12):aspirin (aspirin 81 mg tablet, enteric coated), atorvastatin (Lipitor), glipiZIDE (Glucotrol), levothyroxine, levothyroxine, medroxyPROGESTERone (Provera), metFORMIN (Glucophage), metoprolol (metoprolol tartrate), pregabalin (Lyrica), sertraline, sodium chloride (Saline Flush 0.9%), zolpidem Unscheduled Meds: None PRN Meds (13):Dextrose 50% in Water IV (Dextrose 50% Syringe), Dextrose 50% in Water IV (Dextrose 50% Syringe), acetaminophen-hydrocodone (Tyler 10/325 oral tablet), glucagon, hydrOXYzine (hydrOXYzine hydrochloride 25 mg oral tablet), insulin lispro, insulin lispro, insulin lispro, insulin lispro, morphine Sulfate, nitroglycerin (nitroglycerin SL Tab), ondansetron, sodium chloride (Saline Flush 0.9%) One Time Meds (2):(Completed) Sodium Chloride 0.9% IV (Sodium Chloride 0.9% (Bolus) IV), (Completed) diphenhydrAMINE (Benadryl) Continuous Infusions (1):Sodium Chloride 0.9% IV 250 mL (Sodium Chloride 0.9% (titrate) 250 mL) VS/Measurements Vital Signs (last 24 hrs) Last Charted Temp Oral98 DegF (MAR 13:) Heart Rate [id number] bpm (MAR 13:) Resp Rate 17 BRMIN (MAR 13) SBP99 mmHg (MAR 13) DBP63 mmHg (MAR 13:) IcW440 % (MAR 13) Xvzial72.182 kg (MAR 12 17:11) Owfjji845.56 cm (MAR 12:11) BMI35.26 (MAR 12:11) General: Alert and oriented, No acute distress. Respiratory: Respirations are non-labored. Gastrointestinal: Soft, Non-tender. Neurologic: Alert, Oriented. Psychiatric: Cooperative, Appropriate mood & affect. Review / Management Results review: Labs (Last four charted values) WBC 9.4(MAR 13)8.3(MAR 12) Hgb L 9.8(MAR 13)L 8.2(MAR 12) Hct L 29.2(MAR 13)L 25.1(MAR 12) Plt 288(MAR 13)H 488(MAR 12) Na 139(MAR 13)138(MAR 12) K 3.9(MAR 13)4.2(MAR 12) CO2 L 23(MAR 13)26(MAR 12) Cl 104(MAR 13)102(MAR 12) Cr 0.88(MAR 13)0.87(MAR 12) BUN 9(MAR 13)9(MAR 12) Glucose Random H 191(MAR 13)H 181(MAR 12) Ca L 7.7(MAR 13)L 7.6(MAR 12) PT 14.5(MAR 12) INR 1.13(MAR 12) PTT 30.7(MAR 12) Troponin <0.02(MAR 13)<0.02(MAR 12)<0.02(MAR 12) Total CK 169(MAR 12). Impression and Plan Diagnosis: Syncope (LIN96-SX R55, Working, Medical), Excessive vaginal bleeding (HPB76-ZT N92.0, Working, Medical), Anemia (RAO15-YP D64.9, Working, Medical), Acute chest pain (ZFT59-IT R07.9, Working, Medical). Patient found stable and with decreasing vaginal bleeding. She has a history of mirena placement 1 year ago. Yesterday's US did not mention IUD so I discussed the case with Radiologist on-call today and he was unable to visualized the IUD in the images from yesterday. He recommeneded a pelvic X-ray. Will order Pelvic x-ray and abdominal X-ray. If the IUD is still in place then would recommend discharge on provera 10 mg PO daily for 14 days. She refers her [employer] has already worked her up for AUB. Oriented the patient that she needs to follow up outpatient with her [employer]. Addendum Abdominopelvic x-ray does n ot show IUD. IUD must have fallen out at some point. Oriented by patient on radiology result s and that she needs to follow up with her [employer] for treatment Ad[place]-Goldy of her AUB. Nara woodard MD on 03/13/2018 12:11
--- OUTSIDE RECORDS SUMMARY | 2020-01-09 19:52 | XMS REPORT | Summary of Care ---
Author Author [facility]spital Organization [facility] Address Unknown Phone Unavailable Encounter ARLEY Montemayor(ELMER) [id number] Date(s): 03/06/17 - 03/06/17 [facility] [address] [place] [address]- Discharge Disposition: [facility]TC Left B4 Treatment Cmplt-MSE Cmplt Attending Physician: Madelyn Millan MD Vital Signs 1 2 3 Most recent to oldest [Reference Range]: 160.02 cm (03/06/17 12:24 PM) Height 98.9 DegF (03/06/17 12:24 PM) Temperature Oral [96.4-99.1 DegF] 131/105 mmHg (03/06/17 3:30 PM) 117/68 mmHg (03/06/17 2:30 PM) 108/69 mmHg (03/06/17 1:30 PM) Blood Pressure [90-140/60-90 mmHg] 27 BRMIN *HI* (03/06/17 4:30 PM) 20 BRMIN (03/06/17 3:30 PM) 22 BRMIN *HI* (03/06/17 2:30 PM) Respiratory Rate [14-20 BRMIN] 116 bpm *HI* (03/06/17 12:24 PM) Peripheral Pulse Rate [60-100 bpm] 90.455 kg (03/06/17 12:24 PM) Weight 35.33 m2 (03/06/17 12:24 PM) Body Mass Index Problem List Condition Effective Dates Status Health Status Informan t Anemia(Confirmed) Active Diabetes(Confirmed) Resolved Fever(Confirmed) Active Hodgkins Resolved lymphoma(Confirmed) Hypertension(Confirm Resolved ed) Neuropathy(Confirmed Resolved )1 Shortness of Active breath(Confirmed) Thyroidectomy(Confir Resolved med) 1affects legs Allergies, Adverse Reactions, Alerts Substance Reaction Severity Status vancomycin Active Medications morphine Sulfate 4 mg, 1 mL, Route: IVP, Drug form: SOLN, ONCE, Dosing Weight 90.455, kg, Priorit y: STAT, Start date: 03/06/17 14:09:00 CDT, Stop date: 03/06/17 14:09:00 CDT Notes: (Same as:MORPhine Sulfate) Start Date: 03/06/17 Stop Date: 03/06/17 Status: Completed Saline Flush 0.9% 10 mL, Route: IVP, Drug Form: INJ, Dosing Weight 90.455, kg, PRN, PRN Line Flush , Start date: 03/06/17 12:31:00 CDT, Duration: 30 day, Stop date: 04/05/17 12:30 :00 CDT Notes: (Same as: BD Posiflush) Start Date: 03/06/17 Stop Date: 03/06/17 Status: Discontinued Zofran 4 mg, 2 mL, Route: IVP, Drug form: INJ, ONCE, Dosing Weight 90.455, kg, Priority : STAT, Start date: 03/06/17 14:09:00 CDT, Stop date: 03/06/17 14:09:00 CDT Notes: (Same as: Zofran) MEDICATION WASTE Product Size: 4 mgProduct Was eugene: ___ mg Start Date: 03/06/17 Stop Date: 03/06/17 Status: Completed Results ELECTROLYTES Most recent to 1 oldest [Reference Range]: Sodium Lvl [135-145 135 mEq/L mEq/L] (03/06/17 1:07 PM) Potassium Lvl 3.9 mEq/L [3.5-5.1 mEq/L] (03/06/17 1:07 PM) Chloride Lvl [95-109 99 mEq/L mEq/L] (03/06/17 1:07 PM) CO2 [24-32 mEq/L] 25 mEq/L (03/06/17 1:07 PM) AGAP [10.0-20.0 14.9 mEq/L mEq/L] (03/06/17 1:07 PM) CHEM PANEL Most recent to 1 oldest [Reference Range]: Creatinine Lvl 0.87 mg/dL [0.50-1.40 mg/dL] (03/06/17 1:07 PM) eGFR 84 mL/min/1.73m2 1 *NA* (03/06/17 1:07 PM) BUN [7-22 mg/dL] 11 mg/dL (03/06/17 1:07 PM) B/C Ratio [6-25] 13 (03/06/17 1:07 PM) Glucose Lvl [70-99 354 mg/dL mg/dL] *HI* (03/06/17 PM) Total Protein 7.3 g/dL [6.4-8.4 g/dL] (03/06/17 1:07 PM) Albumin Lvl [3.5-5.0 3.4 g/dL g/dL] *LOW* (03/06/17 PM) Globulin [2.7-4.2 3.9 g/dL g/dL] (03/06/17:07 PM) A/G Ratio [0.7-1.6] 0.9 (03/06/17:07 PM) Calcium Lvl 8.0 mg/dL [8.5-10.5 mg/dL] *LOW* (03/06/17 1:07 PM) ALT [0-65 unit/L] 28 unit/L (03/06/17 1:07 PM) AST [0-37 unit/L] 25 unit/L (03/06/17 1:07 PM) Alk Phos [39-136 169 unit/L unit/L] *HI* (03/06/17: PM) Bili Total [0.2-1.3 0.3 mg/dL mg/dL] (03/06/17 1:07 PM) Lipase Lvl [73-393 180 unit/L unit/L] (03/06/17 1:07 PM) 1Result Comment: The eGFR is calculated using [...] tiplied by the estimated BMI. CARDIAC ENZYMES Most recent to 1 oldest [Reference Range]: Total CK [12-191 114 unit/L unit/L] (03/06/17 1:07 PM) CK MB [0.5-3.6 1.1 ng/mL ng/mL] (03/06/17 1:07 PM) CK MB Index 1.0 [0.0-2.5] (03/06/17 1:07 PM) Troponin-I <0.02 ng/mL [0.00-0.40 ng/mL] (03/06/17 1:07 PM) BNP [<=100 pg/mL] 16 pg/mL (03/06/17 1:07 PM) ENDOCRINOLOGY Most recent to 1 oldest [Reference Range]: S Preg [Negative] Negative *NA* (03/06/17 1:07 PM) URINE AND STOOL Most recent to 1 oldest [Reference Range]: UA Turbidity [Clear] Slight *ABN* (03/06/17 2:19 PM) UA Color Red *NA* (03/06/17 2:19 PM) UA pH [5.0-8.0] 6.0 (03/06/17 2:19 PM) UA Spec Grav 1.024 [<=1.030] (03/06/17 2:19 PM) UA Glucose [Negative 500 mg/dL mg/dL] *ABN* (03/06/17 2:19 PM) UA Blood [Negative] Large *ABN* (03/06/17 2:19 PM) UA Ketones [Negative Negative mg/dL mg/dL] *NA* (03/06/17 2:19 PM) UA Protein [Negative 30 mg/dL mg/dL] *ABN* (03/06/17 2:19 PM) UA Urobilinogen <=1.0 mg/dL [0.1-1.0 mg/dL] *NA* (03/06/17 2:19 PM) UA Bili [Negative] Negative *NA* (03/06/17 2:19 PM) UA Leuk Est Negative [Negative] (03/06/17 2:19 PM) UA Nitrite Negative [Negative] (03/06/17 2:19 PM) UA WBC [0-5 /HPF] 4 /HPF (03/06/17 2:19 PM) UA RBC [0-2 /HPF] 9 /HPF *HI* (03/06/17 2:19 PM) UA Bacteria [None Occasional /HPF Seen /HPF] *NA* (03/06/17 2:19 PM) UA Sq Epi [Few /LPF] Many /LPF *ABN* (03/06/17 2:19 PM) HEMATOLOGY Most recent to 1 oldest [Reference Range]: WBC [3.7-10.4 K/CMM] 10.7 K/CMM *HI* (03/06/17 1:07 PM) RBC [4.20-5.40 3.77 M/CMM M/CMM] *LOW* (03/06/17 1:07 PM) Hgb [12.0-16.0 g/dL] 8.0 g/dL *LOW* (03/06/17 1:07 PM) Hct [36.0-48.0 %] 26.3 % *LOW* (03/06/17 1:07 PM) MCV [80.0-98.0 fL] 69.7 fL *LOW* (03/06/17 1:07 PM) MCH [27.0-31.0 pg] 21.3 pg *LOW* (03/06/17 1:07 PM) MCHC [32.0-36.0 30.5 g/dL g/dL] *LOW* (03/06/17 1:07 PM) RDW [11.5-14.5 %] 17.6 % *HI* (03/06/17 1:07 PM) Platelet [133-450 567 K/CMM K/CMM] *HI* (03/06/17 1:07 PM) MPV [7.4-10.4 fL] 8.4 fL (03/06/17 1:07 PM) Segs [45.0-75.0 %] 66.2 % (03/06/17 1:07 PM) Lymphocytes 22.3 % [20.0-40.0 %] (03/06/17 1:07 PM) Monocytes [2.0-12.0 5.8 % %] (03/06/17 1:07 PM) Eosinophils [0.0-4.0 4.6 % %] *HI* (03/06/17 1:07 PM) Basophils [0.0-1.0 1.1 % %] *HI* (03/06/17 1:07 PM) Segs-Bands # 7.1 K/CMM [1.5-8.1 K/CMM] (03/06/17 1:07 PM) Lymphocytes # 2.4 K/CMM [1.0-5.5 K/CMM] (03/06/17 1:07 PM) Monocytes # [0.0-0.8 0.6 K/CMM K/CMM] (03/06/17 1:07 PM) Eosinophils # 0.5 K/CMM [0.0-0.5 K/CMM] (03/06/17 1:07 PM) Basophils # [0.0-0.2 0.1 K/CMM K/CMM] (03/06/17 1:07 PM) Microcyte [None 2+ Seen] *ABN* (03/06/17 1:07 PM) Immunizations Not Given Vaccine Date Status Refusal Reason influenza virus vaccine, inactivated 03/17/14 Not Given Patient Refuses pneumococcal 23-valent vaccine 03/17/14 Not Given Patient Refuses Procedures Procedure [...]
--- OUTSIDE RECORDS SUMMARY | 2020-01-09 19:52 | XMS REPORT | Continuity of Care Document ---
Author Author HEROZ CECILIO Taylor [place] Address Unknown Phone Unavailable Care Team Providers Care Mat Gauger Name Role Phone [employer] Unavailable Un available Problems Problem Status Onset Date Classification Date Reported Comments Source SYMPTOMATIC ANEMIA, ACUTE CHEST PAIN Active 06/04/2019 [facility] ABNORMAL EKG Active 06/04/2019 [facility] BACK PAIN' Active 04/23/2019 [facility] [place] Acute ischemic heart disease, unspecified 06/29/2018 01/12/2019 [facility] ARM PAIN / CHEST PAIN Active 06/25/2018 [facility] ACS Active 0 06/25/2018 [facility] Chest pain, unspecified 03/20/2018 09/30/2018 [facility] ACUTE CHEST PAIN/SYNCOPE/EXCESSIVE VAGIN Active 03/12/2018 [facility] SYCOPAL EPISODE Active 03/12/2018 [facility] BLURRY VISIION Active 03/06/2017 [facility] CHEST PAIN Active 09/19/2016 [facility] CHEST TIGHTNESS Active 02/14/2016 [facility] SYMPTOMATIC ANEMIA, CHEST PAIN Active 02/14/2016 [facility] Discharge Diagnosis: UTI (urinary tract infection) 01/12/2016 01/15/2016 [facility] Discharge Diagnosis: Microcytic anemia 01/12/2016 01/15/2016 [facility] Discharge Diagnosis: Hyperglycemia 01/12/2016 01/15/2016 [facility] Discharge Diagnosis: Menometrorrhagia 01/12/2016 01/15/2016 [facility] Discharge Diagnosis: Hepatitis 01/12/2016 01/15/2016 [facility] Discharge Diagnosis: Hyponatremia 01/12/2016 01/15/2016 [facility] Discharge Diagnosis: Dehydration 01/12/2016 01/15/2016 [facility] Discharge Diagnosis: Hypothyroid 01/12/2016 01/15/2016 [facility] SOB Active 0 01/12/2016 [facility] NUMBNESS IN SHOULDER Active 09/14/2015 [facility] RHABDOMYOLYSIS, IVONNE Active 09/14/2015 [facility] UTI Active 0 08/28/2014 [facility] CHEST PAIN, ANEMIA Active 03/16/2014 [facility] ANEMIA, CHEST PAIN Active 09/25/[address] [facility] [address] SENT Active 09/22/2012 [facility] ANEMIA Active 09/18/2012 [facility] Type 2 diabetes mellitus without complications 01/12/2019 [facility] Postprocedural hypothyroidism 01/12/2019 [facility] Essential (primary) hypertension 01/12/2019 [facility] FDC (current) use of antithromboti cs/antiplatelets 01/12/2019 [facility] 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 dispatcher (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 01/12/2019 [facility] FDC (current) use of oral hypoglycemic drugs 01/12/2019 [facility] Other ad terminal makeup operator (current) drug therapy 01/12/2019 [facility] Personal history of Hodgkin lymphoma 01/12/2019 [facility] Allergy status to other antibiotic agents status 01/12/2019 [facility] Presence of aortocoronary bypass graft 01/12/2019 [facility] Anemia (disorder) Active Problem 06/07/2019 [facility] Diabetes mellitus (disorder) R esolved Problem 09/2019 [facility] Fever (finding) Active Problem 06/07/2019 [facility] Hodgkin's disease (disorder) R esolved Problem 09/2019 [facility] Essential hypertension (disorder) Resolved Problem 09/2019 [facility] Neuropathy (disorder) Resolved Problem 06/07/2019 affects legs [facility] Dyspnea (finding) Active Problem 06/07/2019 [facility] Thyroidectomy (procedure) Reso lved Problem 09/2019 [facility] Syncope and collapse 09/30/2018 [facility] Abnormal uterine and vaginal bleeding, unspecified 09/30/2018 [facility] Anemia, unspecified 09/30/2018 [facility] Atherosclerotic heart disease of [place] coronary artery without angina pectoris 09/30/2018 [facility] Hypothyroidism, unspecified 09/30/2018 [facility] Presence of (intrauterine) contraceptive device 09/30/2018 [facility] Type 2 diabetes mellitus with diabetic n europathy, unspecified 09/30/2018 [facility] Coronary angioplasty status 09/30/2018 [facility] Hormone replacement therapy (postmenopausal) 09/30/2018 [facility] Old myocardial infarction 09/30/2018 [facility] Other ovarian cyst, right side 09/30/2018 [facility] Unspecified right bundle-branch block 09/30/2018 [facility] Other specified abnormal uterine and vaginal bleeding 09/30/2018 [facility] Family history of diabetes mellitus 09/30/2018 [facility] Tubal ligation status 09/30/2018 [facility] Non-Hodgkin lymphoma, no ICD-O subtype ( morphologic abnormality) Active Prob radha 01/15/2016 [facility] Hodgkin's disease of extranodal AND/OR s olid organ site (disorder) Resolved Pr oblem 08/31/2014 [facility] [M]Non-Hodgkin's lymphoma Acti ve Problem [facility] Fever Active Problem 09/29/2012 [facility] Shortness of breath Active Problem 09/29/2012 [facility] Hodgkins lymphoma Resolved Problem 09/29/2012 [facility] Hypertension Resolved Problem 09/29/2012 [facility] Thyroidectomy Resolved Problem 09/29/2012 [facility] ANEMIA NOS Active [facility] CHEST PAIN NOS Active [facility] RHABDOMYOLYSIS Active [facility] CHEST PAIN, UNSPECIFIED Active [facility] ANEMIA, UNSPECIFIED Active [facility] Medications Medication Details Route Status Patient Instructions Ordering Provider Order Date Source zolpidem 5 mg oral tablet 5 mg = 1 tab, PO, Bedtime, # 30 tab, 0 Refill(s) No Longer Active 06/05/2019 [facility] Glipizide 2.5 MG / Metformin hydrochlori de 250 MG Oral Tablet 1 tab, Route: PO, Drug Form: TAB, Dosing Weight 100, kg, Daily, Start date: 06/05/19 9:00:00 [employer] WORK[employer], Duration: 30 day, Stop date: 07/04/19 9:00:00 [employer] WORK[employer] No Longer Active 06/05/2019 [facility] Sertraline Notes: (Same as: Z oloft) Inactive 06/05/2019 [facility] Januvia Notes: Same as Januvia Inactive 06/05/2019 [facility] Glucophage Notes: (Same as: Gl ucophage) Take with meal Inactive 06/05/2019 [facility] Glucotrol Notes: (Same as: Glu cotrol) 30 min before meals. Inactive 06/05/2019 [facility] Thyroxine Notes: Take 1 hour b efore or 2 hours after meal; Enteral feeds may interefere with the absorption of this medication. (Same as: Levothroid, Synthroid) Inactive 06/05/2019 [facility] Aspirin 81 MG Enteric Coated Tablet Notes: Do not crush or chew. (Same As: Ecotrin) No Longer Active 06/05/2019 [facility] Lipitor Notes: (Same as: Lipit or) No Longer Active 06/05/2019 [facility] metoprolol tartrate Notes: (Sa me as: Lopressor) No Longer Active 06/05/2019 [facility] Lyrica Notes: (Same as: Lyrica) No Longer Active 06/05/2019 [facility] zolpidem Notes: (Same As: Ambi en) No Longer Active 06/05/2019 [facility] Dextrose 50% Syringe (D50W) 12 .5 gm, 25 mL, Route: IVP, Drug Form: INJ, Dosing Weight 100, kg, PRN, PRN Blood Glucose Results, Start date: 06/04/19 17:32:00 [employer] ROLL WORKER, Duration: 30 day, Stop date: 07/04/19 17:31:00 GRE[employer] ROLL WORKER, 0 No Longer Active 06/04/2019 [facility] Glucagon 1 mg, Route: IM, Drug form: PDR/INJ, PRN, Dosing Weight 100, kg, PRN Blood Glucose Results, Start date: 06/04/19 17:32:00 GRE[employer] ROLL WORKER, Duration: 30 day, Stop date: 07/04/19 17:31:00 GREY ROLL WORKER, 0 No Longer Active 06/04/2019 [facility] Insulin Lispro Notes: (Same as : Humalog) Roll in palms of hands gently; Do not shake vigorously. WASTE: F/P - Black; E - Municipal Trash Bin Stable for 28 days at room temperature. Expires in days from Date No Longer Active 06/04/2019 [facility] Docusate Notes: (Same as: Cola ce) (Do Not Crush) No Longer Active 06/04/2019 [facility] sitagliptin 25 MG Oral Tablet [Januvia] 25 mg = 1 tab, PO, Daily, # 30 tab, 0 Refill(s) Active 06/04/2019 [facility] 0.5 ML dulaglutide 3 MG/ML Prefilled Syr ciara [Trulicity] 1.5 mg, SUB-Q, 5X Day, 0 Refill(s) Active 06/04/2019 [facility] RN please update h/w/a in ad hoc RN please update h/w/a in ad hoc, reminder, Drug form: MISC, Route: MISC, Q30Min, 06/04/19 15:30:00 [employer] RO[employer] WORKER, Duration: 3 hr, Stop date: 06/04/19 18:00:00 GRE[employer] ROLL WORKER, 0 Inactive 06/04/2019 [facility] Benadryl 50 mg, Route: IVP, ON CE, Dosing Weight 100, kg, PRN Allergic reaction, Start date: 06/04/19 15:20:00 GREY ROLL WORKER Inactive 06/04/2019 [facility] Dextrose 50% Syringe (D50W) 12 .5 gm, 25 mL, Route: IVP, Drug Form: INJ, Dosing Weight 100, kg, PRN, PRN Blood Glucose Results, Start date: 06/04/19 14:22:00 GREY ROLL WORKER, Duration: 30 day, Stop date: 07/04/19 14:21:00 GREY ROLL WORKER, 0 Inactive 06/04/2019 [facility] Glucagon 1 mg, Route: IM, Drug form: PDR/INJ, PRN, Dosing Weight 100, kg, PRN Blood Glucose Results, Start date: 06/04/19 14:22:00 GREY ROLL WORKER, Duration: 30 day, Stop date: 07/04/19 14:21:00 GREY ROLL WORKER, 0 Inactive 06/04/2019 [facility] Ondansetron Notes: (Same as: Pia dubois) MEDICATION WASTE Product Size: 4 mg Product Wasted: ___ mg No Longer Active 06/04/2019 [facility] Acetaminophen Notes: Do not ex ceed 4 gm/day. (Same as: Tylenol) No Longer Active 06/04/2019 [facility] Sodium Chloride 0.9% (titrate) 250 mL 250 mL, Rate: To prime line and flush remaining blood products., Dosing Weight 100, kg, Route: IV, Total Volume: 250, Start Date: 06/04/19 14:06:00 GREY ROLL WORKER, Duration: 1 day, Stop date: 06/05/19 14:05:00 GREY ROLL WORKER, Replace Every: 24 hr, 0 No Longer Active 06/04/2019 [facility] ketOROLAC 15 mg/mL injectable solution 15 mg, Route: IVP, Drug form: INJ, ONCE, Dosing Weight 100, kg, Priority: STAT, Start date: 06/04/19 13:52:00 GREY ROLL WORKER, Stop date: 06/04/19 13:52:00 [employer] ROLL WORKER Inactive 06/04/2019 [facility] Ondansetron Notes: (Same as: Pia dubois) MEDICATION WASTE Product Size: 4 mg Product Wasted: ___ mg Inactive 06/25/2018 [facility] Morphine Notes: (Same as:MORPh ine Sulfate) Inactive 06/25/2018 [facility] medroxyprogesterone acetate 10 MG Oral Tablet [Provera ] 10 mg = 1 tab, PO, Daily, # 14 tab, 0 Refill(s) Active 03/13/2018 [facility] Aspirin 81 MG Enteric Coated Tablet Notes: Do not crush or chew. (Same As: Ecotrin) Inactive 03/13/2018 [facility] Sertraline Notes: (Same as: Z oloft) Inactive 03/13/2018 [facility] Glipizide 2.5 MG / Metformin hydrochlori de 250 MG Oral Tablet 1 tab, Route: PO, Drug Form: TAB, Dosing Weight 93.182, kg, Daily, Start date: 03/13/18 9:00:00 CDT, Duration: 30 day, Stop date: 04/11/18 9:00:00 [employer] WORKER No Longer Active 03/13/2018 [facility] Glucophage Notes: (Same as: Gl ucophage) Take with meal Inactive 03/13/2018 [facility] Glucotrol Notes: (Same as: Glu cotrol) 30 min before meals. Inactive 03/13/2018 [facility] Thyroxine Notes: Take 1 hour b efore or 2 hours after meal; Enteral feeds may interefere with the absorption of this medication. (Same as: Levothroid) Inactive 03/13/2018 [facility] Insulin Lispro Notes: (Same as : Humalog ) Roll in palms of hands gently; Do not shake `vigorously. "Single Patient Use Only " WASTE: F/P - Black; E - [employer] Trash Bin Stable for 28 days at room temp erature. Expires in days from Date No Longer Active 03/13/2018 [facility] Glucagon 1 mg, Route: IM, Drug form: PDR/INJ, PRN, Dosing Weight 93.182, kg, PRN Blood Glucose Results, Start date: 03/12/18 22:23:00 CDT, Duration: 30 day, Stop date: 04/11/18 21:22:00 [employer]LL WORKER No Longer Active 03/13/2018 [facility] Dextrose 50% Syringe 25 gm, 50 mL, Route: IVP, Drug Form: INJ, Dosing Weight 93.182, kg, PRN, PRN Blood Glucose Results, Start date: 03/12/18 22:23:00 CDT, Duration: 30 day, Stop date: 04/11/18 21:22:00 [employer] WORKER No Longer Active 03/13/2018 [facility] zolpidem Notes: (Same As: Ambi en) No Longer Active 03/13/2018 [facility] metoprolol tartrate Notes: (Sa me as: Lopressor) No Longer Active 03/13/2018 [facility] Lipitor Notes: (Same as: Lipit or) No Longer Active 03/13/2018 [facility] Saline Flush 0.9% Notes: (Same as: BD Posiflush) No Longer Active 03/13/2018 [facility] Provera Notes: (Same as: Prove ra) No Longer Active 03/13/2018 [facility] Lyrica Notes: (Same as: Lyrica) No Longer Active 03/13/2018 [facility] Saline Flush 0.9% Notes: (Same as: BD Posiflush) No Longer Active 03/12/2018 [facility] Ondansetron Notes: (Same as: Z ofran) No Longer Active 03/12/2018 [facility] Morphine Notes: (Same as:MORPh ine Sulfate) No Longer Active 03/12/2018 [facility] Nitroglycerin Notes: (Same as: Nitroquick, Nitrostat) "Do Not Crush" Sublingual tablet No Longer Active 03/12/2018 [facility] Hydroxyzine Hydrochloride 25 MG Oral Tablet Notes: (Same as: Atarax) Avoid alcohol. N o Longer Active 03/12/2018 [facility] Acetaminophen 325 MG / Hydrocodone Rafal trate 10 MG Oral Tablet [[place] 10/325] Notes: Do not exceed 4gm/day of acetamin ophen. (Same as: [place] 325/10) No Longer Active 03/12/2018 [facility] Benadryl Notes: (Same as: Sushila dryl) Inactive 03/12/2018 [facility] Sodium Chloride 0.9% (titrate) 250 mL 250 mL, Rate: To prime line and flush remaining blood products., Dosing Weight 93.182, kg, Route: IV, Total Volume: 250, Start Date: 03/12/18 17:38:00 CDT, Duration: 1 day, Stop date: 03/13/18 17:37:00 CDT, Replace Every: 24 hr No Longer Active 03/12/2018 [facility] Acetaminophen 325 MG / Hydrocodone Rafal trate 10 MG Oral Tablet [[place] 10/325] 1 tab, PO, Q6H, PRN Pain Score 6-10, 0 R efill(s) Active 03/12/2018 [facility] levothyroxine 175 mcg (0.175 mg) oral tablet 175 microgram = 1 tab, PO, Daily, 0 Refill(s) Active 03/12/2018 [facility] sertraline 50 mg oral tablet 5 0 mg = 1 tab, PO, Daily, 0 Refill(s) Active 03/12/2018 [facility] Glipizide 2.5 MG / Metformin hydrochlori de 250 MG Oral Tablet 1 tab, PO, Daily, 0 Refill(s) Active 03/12/2018 [facility] clopidogrel 75 MG Oral Tablet [Plavix] 75 mg = 1 tab, PO, Daily, 0 Refill(s) No Longer Active 03/12/2018 [facility] Aspirin 81 MG Enteric Coated Tablet 81 mg = 1 tab, PO, Daily, 0 Refill(s) Active 03/12/2018 [facility] zolpidem 5 mg oral tablet 5 mg = 1 tab, PO, Bedtime, 0 Refill(s) Active 03/12/2018 [facility] atorvastatin 80 MG Oral Tablet [Lipitor] 80 mg = 1 tab, PO, Bedtime, 0 Refill(s) Activ e 03/12/2018 [facility] levothyroxine 200 mcg (0.2 mg) oral tablet 200 microgram = 1 tab, PO, Daily, 0 Refill(s) Active 03/12/2018 [facility] Hydroxyzine Hydrochloride 25 MG Oral Tablet 25 mg = 1 tab, PO, TID, PRN as needed for anxiety, 0 Refill(s) Active 03/12/2018 [facility] pregabalin 75 MG Oral Capsule [Lyrica] 75 mg = 1 cap, PO, BID, 0 Refill(s) Active 03/12/2018 [facility] metoprolol succinate 25 mg oral capsule, extended release 25 mg = 1 cap, PO, BID, 0 Refill(s) Active 03/12/2018 [facility] Sodium Chloride 0.9% (Bolus) IV 1,000 mL, 1000 ml/hr, Infuse Over: 1 hr, Route: IV, 1,000, Drug form: INJ, ONCE, Priority: STAT, Dosing Weight 90.455 kg, Start date: 03/12/18 13:18:00 CDT, Stop date: 10/09/18 13:18:00 CDT Inactive 03/12/2018 [facility] Saline Flush 0.9% Notes: (Same as: BD Posiflush) No Longer Active 03/12/2018 [facility] Morphine Notes: (Same as:MORPh ine Sulfate) Inactive 03/06/2017 [facility] Zofran Notes: (Same as: Zofran ) MEDICATION WASTE Product Size: 4 mg Product Wasted: ___ mg Inactive 03/06/2017 [facility] Saline Flush 0.9% Notes: (Same as: BD Posiflush) Inactive 03/06/2017 [facility] Metformin hydrochloride 500 MG Oral Tablet Notes: (Same as: Glucophage) Take with meal 48hrs after contast - start at 1700 09/22 No Longer Active 09/22/2016 [facility] metoprolol tartrate 25 mg oral tablet 25 mg = 1 tab, PO, TID, # 90 tab, 1 Refill(s) Active 09/21/2016 [facility] metoprolol tartrate 25 mg oral tablet 25 mg = 1 tab, PO, Q8Hnow, 0 Refill(s) Inactive 09/21/2016 [facility] liothyronine 5 mcg oral tablet 5 microgram = 1 tab, PO, Q630AM, 0 Refill(s) Active 09/21/2016 [facility] prasugrel 10 mg oral tablet 10 mg = 1 tab, PO, Daily, 0 Refill(s) Active 09/21/2016 [facility] atorvastatin 40 mg oral tablet 80 mg = 2 tab, PO, Bedtime, 0 Refill(s) Active 09/21/2016 [facility] Metformin hydrochloride 500 MG Oral Tablet 500 mg, PO, BID, # 60 tab, 0 Refill(s) Active 09/21/2016 [facility] Glipizide 10 MG Oral Tablet 10 mg = 1 tab, PO, BID- Before Meals, # 60 tab, 0 Refill(s) Active 09/21/2016 [facility] Venofer Notes: Each 5ml contai ns 100mg elemental iron. Mix with NS Non-Formulary (Same as:Venofer) Administer IV only. MEDICATION WASTE Product Size: 100 mg Product Wasted: ___ mg Inactive 09/21/2016 [facility] Glucotrol Notes: (Same as: Glu cotrol) 30 min before meals. Inactive 09/21/2016 [facility] Insulin, Aspart, Human Notes: Roll in palms of hands gently; Do not shake vigorously. (Same as: NovoLOG) "single patient use only" WASTE: F/P - Black; E - Municipal Trash Bin Stable for 28 days at room temperature. Expires in days from Date No Longer Active 09/21/2016 [facility] Dextrose 50% Syringe 12.5 gm, 25 mL, Route: IVP, Drug Form: INJ, Dosing Weight 97.273, kg, PRN, PRN Blood Glucose Results, Start date: 09/20/16 23:13:00 CDT, Duration: 30 day, Stop date: 10/20/16 23:12:00 CDT No Longer Active 09/21/2016 [facility] Glucagon 1 mg, Route: IM, Drug form: PDR/INJ, PRN, Dosing Weight 97.273, kg, PRN Blood Glucose Results, Start date: 09/20/16 23:13:00 CDT, Duration: 30 day, Stop date: 10/20/16 23:12:00 CDT No Longer Active 09/21/2016 [facility] Venofer Notes: Each 5ml contai ns 100mg elemental iron. Mix with NS Non-Formulary (Same as:Venofer) Administer IV only. MEDICATION WASTE Product Size: 100 mg Product Wasted: ___ mg Inactive 09/20/2016 [facility] Effient 60kg, without history of TIA/Ischemic stroke and without likely bypass surgery No Longer Active 09/20/2016 [facility] Triiodothyronine Notes: (Same as: Cytomel) No Longer Active 09/20/2016 [facility] Thyroxine Notes: Take 1 hour b efore or 2 hours after meal; Enteral feeds may interefere with the absorption of this medication. (Same as: Levothroid) No Longe r Active 09/20/2016 [facility] Lyrica Notes: (Same as: Lyrica) No Longer Active 09/20/2016 [facility] atorvastatin Notes: (Same as: Lipitor) No Longer Active 09/20/2016 [facility] ferrous sulfate Notes: Give wi th food. "Do Not Crush" No Longer Active 09/19/2016 [facility] Glucotrol Notes: (Same as: Glu cotrol) 30 min before meals. No Longer Active 09/19/2016 [facility] Insulin, Aspart, Human Notes: Roll in palms of hands gently; Do not shake vigorously. (Same as: NovoLOG) "single patient use only" WASTE: F/P - Black; E - Municipal Trash Bin Stable for 28 days at room temperature. Expires in days from Date No Longer Active 09/19/2016 [facility] Dextrose 50% Syringe 12.5 gm, 25 mL, Route: IVP, Drug Form: INJ, Dosing Weight 97.273, kg, PRN, PRN Blood Glucose Results, Start date: 09/19/16 13:50:00 CDT, Duration: 30 day, Stop date: 10/19/16 13:49:00 CDT No Longer Active 09/19/2016 [facility] Glucagon 1 mg, Route: IM, Drug form: PDR/INJ, PRN, Dosing Weight 97.273, kg, PRN Blood Glucose Results, Start date: 09/19/16 13:50:00 CDT, Duration: 30 day, Stop date: 10/19/16 13:49:00 CDT No Longer Active 09/19/2016 [facility] metoprolol tartrate Notes: (Sa me as: Lopressor) No Longer Active 09/19/2016 [facility] Docusate Sodium 100 MG Oral Capsule [Colace] Notes: (Same as: Colace) (Do Not Crush) No Longer Active 09/19/2016 [facility] Lovenox 97 mg, Route: SUB-Q, D rug form: INJ, ONCE, Dosing Weight 97.273, kg, Priority: STAT, Start date: 09/19/16 13:02:00 CDT, Stop date: 09/19/16 13:02:00 CDT Inactive 09/19/2016 [facility] Ondansetron 4 mg, Route: IVP, Drug form: INJ, ONCE, Dosing Weight 97.273, kg, Priority: STAT, Start date: 09/19/16 10:46:00 CDT, Stop date: 09/19/16 10:46:00 CDT Inactive 09/19/2016 [facility] Morphine 4 mg, Route: IVP, ONC E, Dosing Weight 97.273, kg, Priority: STAT, Start date: 04/18/17 10:46:00 CDT, Stop date: 09/19/16 10:46:00 CDT Inactive 09/19/2016 [facility] Aspirin 325 mg, Route: PO, [place] g form: TAB, ONCE, Dosing Weight 97.273, kg, Priority: STAT, Start date: 09/19/16 10:46:00 CDT, Stop date: 09/19/16 10:46:00 CDT Inactiv e 09/19/2016 [facility] levothyroxine 300 mcg (0.3 mg) oral tablet 300 microgram = 1 tab, PO, Daily, # 30 tab, 1 Refill(s) Active 01/13/2016 [facility] Docusate Sodium 100 MG Oral Capsule [Colace] 100 mg = 1 cap, PO, BID, PRN Constipation, # 60 cap, 0 Refill(s) Active 01/13/2016 [facility] ferrous sulfate 325 mg oral enteric coated tablet 325 mg = 1 tab, PO, TID, Start with 1 tab daily x 3 days, advance as tolerate, use stool softners and laxatives as needed for constipation, # 90 tab, 3 Refill(s) Active 01/13/2016 [facility] Sulfamethoxazole 800 MG / Trimethoprim 1 60 MG Oral Tablet [Bactrim] 1 tab, PO, BID, X 10 day, # 20 tab, 0 Re fill(s) Active 01/13/2016 [facility] Rocephin Notes: (Same As: [place] camacho). Use with 100 mL NS and infuse over 30 min MEDICATION WASTE Product Size: 1000 mg Product Wasted: ___ mg Inactive 01/12/2016 [facility] Pepcid Notes: (Same as: Pepcid ) Can be dilute in 5-10cc NS IVP: Slow IV push over at least 2 minutes. Inactive 01/12/2016 [facility] Bentyl Notes: (Same as: Bentyl) Inactive 01/12/2016 [facility] sodium chloride 0.9% INJ 250 mL 250 mL, Rate: senior structural engineer for use with blood product administration, Dosing Weight 104.545, kg, Route: IV, Total Volume: 250, Start Date: 01/12/16 15:30:00 CDT, Duration: 1 day, Stop date: 01/13/16 15:29:00 CDT, Replace Every: 24 hr Inactive 01/12/2016 [facility] Sodium Chloride 0.154 MEQ/ML Injectable Solution 1,000 mL, 1,000 ml/hr, Infuse Over: 1 hr, Route: IV, 1,000, Drug form: INJ, ONCE, Priority: STAT, Dosing Weight 104.545 kg, Start date: 01/12/16 15:30:00 CDT, Duration: 1 doses or times, Stop date: 01/12/16 15:30:00 CDT Inactive 01/12/2016 [facility] levothyroxine 100 mcg (0.1 mg) intravenous injection 50 microgram, IVP, Q630AM, # 30 tab, 0 Refill(s) Inactive 09/16/2015 [facility] levothyroxine 200 mcg (0.2 mg) oral tablet 200 microgram = 1 tab, PO, Daily, # 30 tab, 0 Refill(s) Active 09/16/2015 [facility] cefpodoxime 200 MG Oral Tablet [Vantin] 200 mg = 1 tab, PO, Q12H, X 7 day, # 14 tab, 0 Refill(s) Active 09/16/2015 [facility] Rocephin Notes: (Same As: [place] camacho). Use with 100 mL NS and infuse over 30 min MEDICATION WASTE Product Size: 1000 mg Product Wasted: ___ mg No Longer Active 09/15/2015 [facility] Diphenhydramine 25 mg, 1 tab, Route: PO, Drug form: TAB, Q6H, Dosing Weight 115, kg, PRN Itching, Start date: 09/15/15 17:54:00 CDT, Duration: 30 day, Stop date: 10/15/15 17:53:00 CDT No Longer Active 09/15/2015 [facility] Simethicone Notes: (Same as: Hans ylicon) No Longer Active 09/15/2015 [facility] dextromethorphan-guaiFENesin 10 mg-100 m g/5 mL oral liquid Notes: (dextromethorphan-guaifenesin 10- 100mg/5ml 10 ml oral SOLN ud) (Same as: Robitussin DM) No Longer Active 09/15/2015 [facility] Ondansetron Notes: (Same as: Pia dubois) MEDICATION WASTE Product Size: 4 mg Product Wasted: ___ mg No Longer Active 09/15/2015 [facility] Milk of Magnesia Notes: (Same as: Milk of Magnesia, MOM) No Longer Active 09/15/2015 [facility] Bisacodyl Notes: (Same As: Dul colax, Bisco-Lax) No Longer Active 09/15/2015 [facility] Alprazolam Notes: With food or milk (Same as: Xanax) No Longer Active 09/15/2015 [facility] Al hydroxide/Mg hydroxide/simethicone 20 0 mg-200 mg-20 mg/5 mL oral suspension Notes: (aluminum hydroxide-magnesium hyd -simethicone [phone]/5ml 30 ml ud CHAZ) No Longer Active 09/15/2015 [facility] Temazepam Notes: (Same As: Res toril) No Longer Active 09/15/2015 [facility] Acetaminophen Notes: Do not ex ceed 4 gm/day. (Same as: Tylenol) No Longer Active 09/15/2015 [facility] lisinopril 10 mg oral tablet 1 0 mg = 1 tab, PO, Daily, # 30 tab, 0 Refill(s) Active 09/15/2015 [facility] Glucotrol Notes: (Same as: Glu cotrol) 30 min before meals. No Longer Active 09/15/2015 [facility] Thyroxine Notes: Take 1 hour b efore or 2 hours after meal; Enteral feeds may interefere with the absorption of this medication. (Same as: Levothroid) No Longe r Active 09/15/2015 [facility] Synthroid Notes: (Same as: Syn throid) Reconstitute with 5ml of NS. Final concentration = 20 micrograms/ml. Use immediately after reconstitution and discard remaining solution. No Longer Active 09/15/2015 [facility] Glucagon 1 mg, Route: IM, Drug form: PDR/INJ, PRN, Dosing Weight 104.545, kg, PRN Blood Glucose Results, Start date: 09/14/15 22:59:00 CDT, Duration: 30 day, Stop date: 10/14/15 22:58:00 CDT No Longer Active 09/15/2015 [facility] Dextrose 50% Syringe 25 gm, 50 mL, Route: IVP, Drug Form: INJ, Dosing Weight 104.545, kg, PRN, PRN Blood Glucose Results, Start date: 09/14/15 22:59:00 CDT, Duration: 30 day, Stop date: 10/14/15 22:58:00 CDT No Longer Active 09/15/2015 [facility] Insulin, Aspart, Human Notes: Roll in palms of hands gently; Do not shake vigorously. (Same as: NovoLOG) "single patient use only" WASTE: F/P - Black; E - Municipal Trash Bin Stable for 28 days at room temperature. Expires in days from Date No Longer Active 09/15/2015 [facility] Venofer Notes: Each 5ml contai ns 100mg elemental iron. Mix with NS (Same as:Venofer) Administer IV only. MEDICATION WASTE Product Size: 100 mg Product Wasted: ___ mg No Longer Active 09/15/2015 [facility] Saline Flush 0.9% Notes: (Same as: BD Posiflush) No Longer Active 09/15/2015 [facility] Sodium Chloride 0.154 MEQ/ML Injectable Solution 1,000 mL, Rate: 150 ml/hr, Infuse over: 6.7 hr, Route: IV, Dosing Weight 104.545 kg, Total Volume: 1,000, Start date: 09/14/15 21:43:00 CDT, Duration: 30 day, Stop date: 10/14/15 21:42:00 CDT No Longer Active 09/15/2015 [facility] Morphine Notes: (Same as:MORPh ine Sulfate) No Longer Active 09/15/2015 [facility] Ondansetron Notes: (Same as: Pia dubois) MEDICATION WASTE Product Size: 4 mg Product Wasted: ___ mg No Longer Active 09/15/2015 [facility] Sodium Chloride 0.154 MEQ/ML Injectable Solution 1,000 mL, 1,000 ml/hr, Infuse Over: 1 hr, Route: IV, 1,000, Drug form: INJ, ONCE, Priority: STAT, Dosing Weight 104.545 kg, Start date: 09/14/15 18:57:00 CDT, Duration: 1 doses or times, Stop date: 09/14/15 18:57:00 CDT Inactive 09/14/2015 [facility] Saline Flush 0.9% Notes: (Same as: BD Posiflush) No Longer Active 09/14/2015 [facility] pantoprazole 40 MG Enteric Coated Tablet [Protonix] 40 mg = 1 tab, PO, BID, # 60 tab, 1 Refill(s) Active 03/20/2014 [facility] sitagliptin 100 MG Oral Tablet [Januvia] 100 mg = 1 tab, PO, Daily, # 30 tab, 1 Refill(s) Active 03/20/2014 [facility] Flumazenil Notes: (Same as: Ro mazicon) No Longer Active 03/19/2014 [facility] Naloxone Notes: Same as Narcan No Longer Active 03/19/2014 [facility] Bisacodyl Notes: (Same As: Dul colax, Correctol) (Do Not Crush) "Do Not Crush" No Longer Active 03/19/2014 [facility] magnesium citrate Notes: (Same as: Citrate of Magnesia) No Longer Active 03/19/2014 [facility] Sodium Chloride 0.154 MEQ/ML Injectable Solution 500 mL, Rate: 25 ml/hr, Infuse over: 20 hr, Route: IV, Dosing Weight 108.636 kg, Total Volume: 500, Start date: 03/18/14 13:46:00, Duration: 1 day, Stop date: 03/19/14 13:45:00 No Longer Active 03/18/2014 [facility] Dulcolax Laxative Notes: (Same As: Dulcolax, Correctol) (Do Not Crush) "Do Not Crush" Inactive 03/18/2014 [facility] magnesium citrate Notes: (Same as: Citrate of Magnesia) Inactive 03/18/2014 [facility] Thyroxine Notes: Take 1 hour b efore or 2 hours after meal; Enteral feeds may interefere with the absorption of this medication. (Same as: Levothroid) No Longe r Active 03/18/2014 [facility] Insulin, Aspart, Human 10 unit , Route: SUB-Q, ONCE, Dosing Weight 108.636, kg, Start date: 03/17/14 21:46:00, Stop date: 03/17/14 21:46:00 Inactive 03/18/2014 [facility] Docusate Sodium 100 MG Oral Capsule Notes: (Same as: Colace) (Do Not Crush) No Longer Active 03/18/2014 [facility] Golytely Notes: (polyethylene glycol electrolyte solution 4 Liter bottle) (Same as: Ct Oliveira) Inactive 03/17/2014 [facility] Dexamethasone Notes: Concentra tion: 4mg/ml Inactive 03/17/2014 [facility] Pepcid Notes: (Same as: Pepcid ) Can be dilute in 5-10cc NS IVP: Slow IV push over at least 2 minutes. Inactive 03/17/2014 [facility] InFed Notes: (Same as:DexFerru m) Non-Formulary Inactive 03/17/2014 [facility] Benadryl Notes: (Same as: [place] dryl) Inactive 03/17/2014 [facility] InFed Notes: (Same as:DexFerru m) Non-Formulary Inactive 03/17/2014 [facility] Influenza Virus Vaccine, Inactivated A-B [id number] (H3N2)-like virus ([id number] [facility] [place] X-175C) strain / Influenza Virus Vaccine, Inactivated J-[id number], IVR-148 (H1N1) strain / Influenza Virus Vaccine, Inactivated, Y-Aacxdht-0-lik Notes: (Same as: Fluzone Quadrivalent) Inactive 03/17/2014 [facility] pneumococcal capsular polysaccharide typ e 1 vaccine / pneumococcal capsular polysaccharide type 10A vaccine / pneumococcal capsular polysaccharide type 11A vaccine / pneumococcal capsular polysaccharide type 12F vaccine / pneumococcal capsular polysacchar Notes: (Same as: Pneumovax 23) Refrigerate Inactive 03/17/2014 [facility] nitroglycerin 0.4 mg sublingual tablet Notes: (Same as:Nitroquick, Nitrostat) "Do Not Crush" Sublingual tablet No Longer Active 03/16/2014 [facility] atropine 0.5 mg, 5 mL, Route: IVP, Drug form: INJ, PRN, PRN Bradycardia, Start date: 03/16/14 17:59:00, Duration: 30 day, Stop date: 04/15/14 16:58:00 No Longer Active 03/16/2014 [facility] Glucotrol 5 mg, PO, BID, 0 Ref ill(s) Active 03/16/2014 [facility] Thyroxine 200 microgram, PO, D aily, 0 Refill(s) Active 03/16/2014 [facility] Zofran Notes: (Same as: Zofran) Inactive 03/16/2014 [facility] Benadryl 25 mg, 1 tab, Route: PO, Drug form: TAB, ONCE, Dosing Weight 108.636, kg, PRN Blood Transfusion, Start date: 03/16/14 16:16:00 Inactive 03/16/2014 [facility] Lovenox Notes: (Same as: Loven ox) No Longer Active 03/16/2014 [facility] Insulin, Aspart, Human Notes: Roll in palms of hands gently; Do not shake vigorously. (Same as: NovoLOG) "single patient use only" Stable for 28 days at room temperature. Expires in days from Date No Longer Active 03/16/2014 [facility] Dextrose 50% Syringe 25 gm, 50 mL, Route: IVP, Drug Form: INJ, Dosing Weight 107.727, kg, PRN, PRN Blood Glucose Results, Start date: 03/16/14 14:30:00, Duration: 30 day, Stop date: 04/15/14 13:29:00 No Longer Active 03/16/2014 [facility] Glucagon 1 mg, Route: IM, Drug form: PDR/INJ, PRN, Dosing Weight 107.727, kg, PRN Blood Glucose Results, Start date: 03/16/14 14:30:00, Duration: 30 day, Stop date: 04/15/14 13:29:00 No Longer Active 03/16/2014 [facility] Nitroglycerin 0.4 MG Sublingual Tablet [Nitrostat] Notes: (Same as:Nitroquick, Nitrostat) "Do Not Crush" Sublingual tablet No Longer Active 03/16/2014 [facility] Morphine Notes: (Same as:MORPh ine Sulfate) No Longer Active 03/16/2014 [facility] Ambien Notes: (Same As: Ambien) No Longer Active 03/16/2014 [facility] Acetaminophen 325 MG / Hydrocodone Rafal trate 5 MG Oral Tablet [[place] 5/325] Notes: (Same as: [place] 325/5) Do not ex ceed 4gm/day of acetaminophen. No Longer Activ e 03/16/2014 [facility] Zofran Notes: (Same as: Zofran) No Longer Active 03/16/2014 [facility] Tylenol Notes: Do not exceed 4 gm/day. (Same as: Tylenol) No Longer Active 03/16/2014 [facility] Levaquin 500 mg, 2 tab, Route: PO, Drug form: TAB, Daily, Start date: 09/27/12 21:00:00, Duration: 30 day, Stop date: 10/26/12 21:00:00 PO No Longer Active [place] 09/28/2012 [facility] Lopressor 50 mg, 1 tab, Route: PO, Drug form: TAB, Q12H, Priority: STAT, Start date: 09/26/12 22:55:00, Duration: 30 day, Stop date: 10/26/12 21:00:00 PO No Longer Active [place] 09/27/2012 [facility] Sodium Chloride 0.45% IV 1,000 mL 1,000 mL, Rate: 100 ml/hr, Infuse over: 10 hr, Route: IV, kg, Total Volume: 1,000, Start date: 09/26/12 22:53:00, Duration: 2 doses or times, Stop date: 09/27/12 18:52:00 IV No Longer Active [place] 09/03 [facility] Tylenol 650 mg, 2 tab, Route: PO, Drug form: TAB, Q6H, PRN Headache, Start date: 09/26/12 20:45:00, Duration: 30 day, Stop date: 10/26/12 20:44:00 PO No Longer Active [place] 09/27/2012 [facility] metoprolol 50 mg, 1 tab, Route : PO, Drug form: ERTAB, Daily, Start date: 09/26/12 9:00:00, Duration: 30 day, Stop date: 10/25/12 9:00:00 PO No Longer Active [place] 09/26/2012 [facility] Levothroid 175 microgram, 1 ta b, Route: PO, Drug form: TAB, Q630AM, Start date: 09/26/12 6:30:00, Duration: 30 day, Stop date: 10/25/12 6:30:00 PO No Longer Active [place] 09/26/2012 [facility] Sodium Chloride 0.9% IV IV, 0 ml/hr, ONCALL, Start date: 09/26/12 3:00:00, Duration: 1, 250 ml IV No Longer Active [place] 09/26/2012 [facility] Zofran 4 mg, 2 mL, Route: IVP, Drug form: INJ, Q2H, PRN Nausea, Start date: 09/26/12 1:42:00, Duration: 30 day, Stop date: 10/26/12 1:41:00 IVP No Longer Active [place] 09/26/2012 [facility] K-Dur 20 40 mEq, 2 tab, Route: PO, Drug form: ERTAB, PRN, PRN Blood Transfusion, Start date: 09/25/12 19:24:00, Duration: 1 day, Stop date: 09/26/12 19:23:00 PO No Longer Active [place] 09/26/2012 [facility] Lasix 10 mg, 1 mL, Route: IV, Drug form: INJ, PRN, PRN Blood Transfusion, Start date: 09/25/12 19:23:00, Duration: 1 day, Stop date: 09/26/12 19:22:00 IV No Longer Active [place] 09/26/2012 [facility] Sodium Chloride 0.45% IV 1,000 mL 1,000 mL, Rate: 100 ml/hr, Infuse over: 10 hr, Route: IV, kg, Total Volume: 1,000, Start date: 09/25/12 19:23:00, Duration: 2 doses or times, Stop date: 09/26/12 15:22:00 IV No Longer Active [place] 09/03 [facility] atropine 0.5 mg, 5 mL, Route: IVP, Drug form: INJ, PRN, PRN Bradycardia, Start date: 09/25/12 19:21:00, Duration: 30 day, Stop date: 10/25/12 19:20:00 IVP No Longer Active [place] 09/26/2012 [facility] Macrobid 100 mg oral capsule 1 00 mg, 1 cap, PO, BID, 14 cap, Substitution Allowed PO Active [facility] 09/22/2012 [facility] Sodium Chloride 0.9% (Bolus) IV 1,000 mL 1,000 mL, Rate: 1,000 ml/hr, Infuse over: 1 hr, Route: IV, kg, Total Volume: 1,000, Priority: STAT, Start date: 09/22/12 16:18:00, Duration: 1 doses or times, Stop date: 09/22/12 17:17:00, Bolus DoseBolus Dose IV No Longer Active [facility] 09/22/2012 [facility] Allergies, Adverse Reactions, Alerts Substance Category Reaction Severity Reaction type Status Date Reported Comments Source vancomycin Assertion Drug allergy Active [facility] Immunizations Immunization Date Given Site Status Last Updated Comments Source pneumococcal 23-valent vaccine 03/17/2014 Not Given [facility] influenza virus vaccine, inactivated 03/17/2014 Not Given [facility] Results Order Name Results Value Reference Range Date Interpretation Comments Source CARDIAC ENZYMES Troponin-I <0.02 0.00 - 0.40 06/05/2019 [facility] HEMATOLOGY Hgb 8.6 12.0 - 16.0 06/05/2019 [facility] ANEMIA STUDY Ferritin Lvl 3 5 - 204 06/05/2019 [facility] ANEMIA STUDY Iron 160 30 - 160 06/05/2019 [facility] ANEMIA STUDY TIBC 509 228 - 428 06/05/2019 [facility] ANEMIA STUDY UIBC 349 110 - 370 06/05/2019 [facility] ANEMIA STUDY % [place] 31 12 - 57 06/05/2019 [facility] ANEMIA STUDY Folate Lvl 10.3 >=3.0 ng/mL 06/05/2019 [facility] ANEMIA STUDY Vitamin B12 Lvl 401 254 - 1320 06/05/2019 [facility] CARDIAC ENZYMES Troponin-I <0.02 0.00 - 0.40 06/05/2019 [facility] CHEM PANEL LDH 216 98 - 192 06/05/2019 [facility] BLOOD BANK RESULTS RBC product Product available 2 (06/04/19 2:06 PM) 06/04/2019 Result Comment: 06/04/2019 1 4:14 ASBHAVSA
CALLED TO
EDEN 06/04/2019 14:14 [facility] BLOOD BANK RESULTS ABO/Rh O NEG 06/04/2019 [facility] BLOOD BANK RESULTS Antibody Scrn Negative (06/04/19 11:25 AM) 06/04/2019 [facility] CARDIAC ENZYMES Troponin-I <0.02 0.00 - 0.40 06/04/2019 [facility] CHEM PANEL Glucose Lvl 183 70 - 99 06/04/2019 [facility] CHEM PANEL BUN 10 7 - 22 06/04/2019 [facility] CHEM PANEL Creatinine Lvl 1.02 0.50 - 1.40 06/04/2019 [facility] CHEM PANEL Sodium Lvl 137 135 - 145 06/04/2019 [facility] CHEM PANEL Potassium Lvl 3.9 3.5 - 5.1 06/04/2019 [facility] CHEM PANEL Chloride Lvl 103 95 - 109 06/04/2019 [facility] CHEM PANEL CO2 28 24 - 32 06/04/2019 [facility] CHEM PANEL Calcium Lvl 8.0 8.5 - 10.5 06/04/2019 [facility] CHEM PANEL Total Protein 7.7 6.4 - 8.4 06/04/2019 [facility] CHEM PANEL Albumin Lvl 3.4 3.5 - 5.0 06/04/2019 [facility] CHEM PANEL ALT 27 0 - 65 06/04/2019 [facility] CHEM PANEL AST 34 0 - 37 06/04/2019 [facility] CHEM PANEL Alk Phos 115 39 - 136 06/04/2019 [facility] CHEM PANEL Bili Total 0.3 0.2 - 1.3 06/04/2019 [facility] CHEM PANEL eGFR 68 06/04/2019 Result Comment: The eGFR is calculated using the [...] from the National Kidney Disease Education Program (NKDEP) which additionally recommends that when the eGFR is used in patients with extremes of body mass index for purposes of drug dosing, the eGFR should be multiplied by the estimated BMI. [facility] CHEM PANEL AGAP 9.9 10.0 - 20.0 06/04/2019 [facility] CHEM PANEL B/C Ratio 10 6 - 25 06/04/2019 [facility] CHEM PANEL Globulin 4.3 2.7 - 4.2 06/04/2019 [facility] CHEM PANEL A/G Ratio 0.8 0.7 - 1.6 06/04/2019 [facility] ENDOCRINOLOGY S Preg Ne gative *NA* (06/04/19 11:25 AM) Negative 06/04/2019 [facility] HEMATOLOGY Retic Auto 1.5 0.5 - 1.5 06/04/2019 [facility] HEMATOLOGY WBC 7.7 3.7 - 10.4 06/04/2019 [facility] HEMATOLOGY RBC 4.14 4.20 - 5.40 06/04/2019 [facility] HEMATOLOGY Hgb 7.5 12.0 - 16.0 06/04/2019 [facility] HEMATOLOGY Hct 25.8 36.0 - 48.0 06/04/2019 [facility] HEMATOLOGY MCV 62.4 80.0 - 98.0 06/04/2019 [facility] HEMATOLOGY MCH 18.0 27.0 - 31.0 06/04/2019 [facility] MCHC 28.9 32.0 - 36.0 06/04/2019 [facility] RDW 20.5 11.5 - 14.5 06/04/2019 [facility] HEMATOLOGY Platelet 467 133 - 450 06/04/2019 [facility] MPV 8.7 7.4 - 10.4 06/04/2019 [facility] HEMATOLOGY PT 13.7 12.0 - 14.7 06/04/2019 [facility] HEMATOLOGY INR 1.05 0.85 - 1.17 06/04/2019 [facility] PTT 28.9 22.9 - 35.8 06/04/2019 [facility] Plt Morph Morena l (06/04/19 11:25 AM) Normal 06/04/2019 [facility] HEMATOLOGY Segs 67.1 45.0 - 75.0 06/04/2019 [facility] HEMATOLOGY Lymphocytes 23.1 20.0 - 40.0 06/04/2019 [facility] HEMATOLOGY Monocytes 5.3 2.0 - 12.0 06/04/2019 [facility] HEMATOLOGY Eosinophils 3.0 0.0 - 4.0 06/04/2019 [facility] HEMATOLOGY Basophils 1.5 0.0 - 1.0 06/04/2019 [facility] Neutrophils # 5.2 1.5 - 8.1 06/04/2019 [facility] Lymphocytes # 1.8 1.0 - 5.5 06/04/2019 [facility] Monocytes # 0.4 0.0 - 0.8 06/04/2019 [facility] Eosinophils # 0.2 0.0 - 0.5 06/04/2019 [facility] Basophils # 0.1 0.0 - 0.2 06/04/2019 [facility] HEMATOLOGY Microcyte 3+ *NA* (06/04/19 11:25 AM) None Seen 06/04/2019 [facility] HEMATOLOGY Hypochrom 2+ (06/04/19 11:25 AM) None Seen 06/04/2019 [facility] URINE AND STOOL UA Nitrite Negative (06/25/18 10:06 AM) Negative 06/25/2018 [facility] URINE AND STOOL UA Leuk Est Negative (06/25/18 10:06 AM) Negative 06/25/2018 [facility] URINE AND STOOL UA WBC 4 0 - 5 06/25/2018 [facility] URINE AND STOOL UA Sq Epi Few /LPF Few /LPF 06/25/2018 [facility] URINE AND STOOL UA RBC 3 0 - 2 06/25/2018 [facility] URINE AND STOOL UA Bacteria Moderate /HPF None Seen /HPF 06/25/2018 [facility] URINE AND STOOL UA Bili Negative *NA* (06/25/18 10:06 AM) Negative 06/25/2018 [facility] URINE AND STOOL UA Urobilinogen <=1.0 mg/dL 0.1 - 1.0 06/25/2018 [facility] URINE AND STOOL UA Blood Large *ABN* (06/25/18 10:06 AM) Negative 06/25/2018 [facility] URINE AND STOOL UA Protein Negative (06/25/18 10:06 AM) Negative 06/25/2018 [facility] URINE AND STOOL UA Glucose Negative *NA* (06/25/18 10:06 AM) Negative 06/25/2018 [facility] URINE AND STOOL UA Ketones Negative *NA* (06/25/18 10:06 AM) Negative 06/25/2018 [facility] URINE AND STOOL UA Turbidity Slight *ABN* (06/25/18 10:06 AM) Clear 06/25/2018 [facility] URINE AND STOOL UA Color Ltyellow 06/25/2018 [facility] URINE AND STOOL UA Spec Grav 1.009 <=1.030 06/25/2018 [facility] URINE AND STOOL UA pH 6.0 5.0 - 8.0 06/25/2018 [facility] CARDIAC ENZYMES BNP 56 <=100 pg/mL 06/25/2018 [facility] CARDIAC ENZYMES Troponin-I <0.02 0.00 - 0.40 06/25/2018 [facility] CARDIAC ENZYMES Total CK 207 12 - 191 06/25/2018 [facility] CHEM PANEL eGFR 76 06/25/2018 Result Comment: The eGFR is calculated using the [...] from the National Kidney Disease Education Program (NKDEP) which additionally recommends that when the eGFR is used in patients with extremes of body mass index for purposes of drug dosing, the eGFR should be multiplied by the estimated BMI. [facility] CHEM PANEL Calcium Lvl 8.3 8.5 - 10.5 06/25/2018 [facility] CHEM PANEL Albumin Lvl 3.7 3.5 - 5.0 06/25/2018 [facility] CHEM PANEL Total Protein 7.9 6.4 - 8.4 06/25/2018 [facility] CHEM PANEL Bili Total 0.6 0.2 - 1.3 06/25/2018 [facility] CHEM PANEL Alk Phos 112 39 - 136 06/25/2018 [facility] CHEM PANEL AST 20 0 - 37 06/25/2018 [facility] CHEM PANEL ALT 22 0 - 65 06/25/2018 [facility] CHEM PANEL Potassium Lvl 3.8 3.5 - 5.1 06/25/2018 [facility] CHEM PANEL CO2 27 24 - 32 06/25/2018 [facility] CHEM PANEL Chloride Lvl 101 95 - 109 06/25/2018 [facility] CHEM PANEL BUN 13 7 - 22 06/25/2018 [facility] CHEM PANEL Creatinine Lvl 0.94 0.50 - 1.40 06/25/2018 [facility] CHEM PANEL Sodium Lvl 139 135 - 145 06/25/2018 [facility] CHEM PANEL Glucose Lvl 162 70 - 99 06/25/2018 [facility] CHEM PANEL A/G Ratio 0.9 0.7 - 1.6 06/25/2018 [facility] CHEM PANEL Globulin 4.2 2.7 - 4.2 06/25/2018 [facility] CHEM PANEL B/C Ratio 14 6 - 25 06/25/2018 [facility] CHEM PANEL AGAP 14.8 10.0 - 20.0 06/25/2018 [facility] ENDOCRINOLOGY S Preg Ne gative *NA* (06/25/18 9:16 AM) Negative 06/25/2018 [facility] HEMATOLOGY Microcyte 2+ *ABN* (06/25/18 9:16 AM) None Seen 06/25/2018 [facility] HEMATOLOGY Segs 72.9 45.0 - 75.0 06/25/2018 [facility] HEMATOLOGY Lymphocytes 21.0 20.0 - 40.0 06/25/2018 [facility] HEMATOLOGY Monocytes 3.6 2.0 - 12.0 06/25/2018 [facility] HEMATOLOGY Basophils 0.8 0.0 - 1.0 06/25/2018 [facility] HEMATOLOGY Eosinophils 1.7 0.0 - 4.0 06/25/2018 [facility] HEMATOLOGY Neutrophils # 7.0 1.5 - 8.1 06/25/2018 [facility] HEMATOLOGY Lymphocytes # 2.0 1.0 - 5.5 06/25/2018 [facility] HEMATOLOGY Basophils # 0.1 0.0 - 0.2 06/25/2018 [facility] HEMATOLOGY Monocytes # 0.3 0.0 - 0.8 06/25/2018 [facility] HEMATOLOGY Eosinophils # 0.2 0.0 - 0.5 06/25/2018 [facility] HEMATOLOGY PT 13.6 12.0 - 14.7 06/25/2018 [facility] HEMATOLOGY INR 1.06 0.85 - 1.17 06/25/2018 [facility] HEMATOLOGY RDW 22.4 11.5 - 14.5 06/25/2018 [facility] HEMATOLOGY Platelet 587 133 - 450 06/25/2018 [facility] HEMATOLOGY Hgb 9.4 12.0 - 16.0 06/25/2018 [facility] MPV 8.4 7.4 - 10.4 06/25/2018 [facility] MCHC 30.2 32.0 - 36.0 06/25/2018 [facility] MCH 21.3 27.0 - 31.0 06/25/2018 [facility] MCV 70.5 80.0 - 98.0 06/25/2018 [facility] HEMATOLOGY Hct 31.1 36.0 - 48.0 06/25/2018 [facility] HEMATOLOGY WBC 9.7 3.7 - 10.4 06/25/2018 [facility] HEMATOLOGY RBC 4.41 4.20 - 5.40 06/25/2018 [facility] CARDIAC ENZYMES Troponin-I <0.02 0.00 - 0.40 03/13/2018 [facility] CHEM PANEL Calcium Lvl 7.7 8.5 - 10.5 03/13/2018 [facility] CHEM PANEL eGFR 82 03/13/2018 Result Comment: The eGFR is calculated using the [...] from the National Kidney Disease Education Program (NKDEP) which additionally recommends that when the eGFR is used in patients with extremes of body mass index for purposes of drug dosing, the eGFR should be multiplied by the estimated BMI. [facility] CHEM PANEL Glucose Lvl 191 70 - 99 03/13/2018 [facility] CHEM PANEL Sodium Lvl 139 135 - 145 03/13/2018 [facility] CHEM PANEL Potassium Lvl 3.9 3.5 - 5.1 03/13/2018 [facility] CHEM PANEL Chloride Lvl 104 95 - 109 03/13/2018 [facility] CHEM PANEL Creatinine Lvl 0.88 0.50 - 1.40 03/13/2018 [facility] CHEM PANEL CO2 23 24 - 32 03/13/2018 [facility] CHEM PANEL BUN 9 7 - 22 03/13/2018 [facility] CHEM PANEL AGAP 15.9 10.0 - 20.0 03/13/2018 [facility] MCH 29.3 27.0 - 31.0 03/13/2018 [facility] RBC 3.33 4.20 - 5.40 03/13/2018 [facility] Hgb 9.8 12.0 - 16.0 03/13/2018 [facility] WBC 9.4 3.7 - 10.4 03/13/2018 [facility] HEMATOLOGY MCV 87.5 80.0 - 98.0 03/13/2018 [facility] MCHC 33.5 32.0 - 36.0 03/13/2018 [facility] Hct 29.2 36.0 - 48.0 03/13/2018 [facility] Platelet 288 133 - 450 03/13/2018 Result Comment: NO CLOT.03/13/2018 06:44. monisha [facility] MPV 8.1 7.4 - 10.4 03/13/2018 [facility] RDW 25.4 11.5 - 14.5 03/13/2018 [facility] HEMATOLOGY Eosinophils # 0.4 0.0 - 0.5 03/13/2018 [facility] HEMATOLOGY Basophils # 0.1 0.0 - 0.2 03/13/2018 [facility] HEMATOLOGY Monocytes # 0.4 0.0 - 0.8 03/13/2018 [facility] HEMATOLOGY Eosinophils 3.7 0.0 - 4.0 03/13/2018 [facility] HEMATOLOGY Basophils 0.6 0.0 - 1.0 03/13/2018 [facility] HEMATOLOGY Monocytes 4.2 2.0 - 12.0 03/13/2018 [facility] HEMATOLOGY Segs 75.3 45.0 - 75.0 03/13/2018 [facility] HEMATOLOGY Neutrophils # 7.1 1.5 - 8.1 03/13/2018 [facility] HEMATOLOGY Lymphocytes # 1.5 1.0 - 5.5 03/13/2018 [facility] HEMATOLOGY Lymphocytes 16.2 20.0 - 40.0 03/13/2018 [facility] LIPIDS Chol 156 <=199 mg/dL 03/13/2018 [facility] LIPIDS VLDL 25 03/13/2018 [facility] LIPIDS LDL (Calculated) 91 <=99 mg/dL 03/13/2018 [facility] LIPIDS HDL 40 >=61 mg/dL 03/13/2018 [facility] LIPIDS Trig 126 <=149 mg/dL 03/13/2018 [facility] LIPIDS CHD Risk 3.90 3.90 - 5.80 03/13/2018 [facility] CARDIAC ENZYMES Troponin-I <0.02 0.00 - 0.40 03/12/2018 [facility] BLOOD BANK RESULTS RBC product Product available 3 (03/12/18 5:38 PM) 03/12/2018 Result Comment: 03/12/2018 1 7:48 [id number]
called arelis ladd RN CDU at 03/12/2018 17:48 SM [facility] BLOOD BANK RESULTS Antibody Scrn Negative (03/12/18 2:16 PM) 03/12/2018 [facility] BLOOD BANK RESULTS ABO/Rh O NEG 03/12/2018 [facility] CARDIAC ENZYMES Total CK 169 12 - 191 03/12/2018 [facility] CARDIAC ENZYMES BNP 87 <=100 pg/mL 03/12/2018 [facility] CARDIAC ENZYMES Troponin-I <0.02 0.00 - 0.40 03/12/2018 [facility] CHEM PANEL eGFR 84 03/12/2018 Result Comment: The eGFR is calculated using the [...] from the National Kidney Disease Education Program (NKDEP) which additionally recommends that when the eGFR is used in patients with extremes of body mass index for purposes of drug dosing, the eGFR should be multiplied by the estimated BMI. [facility] CHEM PANEL Alk Phos 123 39 - 136 03/12/2018 [facility] CHEM PANEL ALT 22 0 - 65 03/12/2018 [facility] CHEM PANEL AST 22 0 - 37 03/12/2018 [facility] CHEM PANEL Total Protein 7.2 6.4 - 8.4 03/12/2018 [facility] CHEM PANEL Albumin Lvl 3.4 3.5 - 5.0 03/12/2018 [facility] CHEM PANEL Creatinine Lvl 0.87 0.50 - 1.40 03/12/2018 [facility] CHEM PANEL Bili Total 0.3 0.2 - 1.3 03/12/2018 [facility] CHEM PANEL Chloride Lvl 102 95 - 109 03/12/2018 [facility] CHEM PANEL CO2 26 24 - 32 03/12/2018 [facility] CHEM PANEL Potassium Lvl 4.2 3.5 - 5.1 03/12/2018 [facility] CHEM PANEL Calcium Lvl 7.6 8.5 - 10.5 03/12/2018 [facility] CHEM PANEL Sodium Lvl 138 135 - 145 03/12/2018 [facility] CHEM PANEL Glucose Lvl 181 70 - 99 03/12/2018 [facility] CHEM PANEL BUN 9 7 - 22 03/12/2018 [facility] CHEM PANEL Globulin 3.8 2.7 - 4.2 03/12/2018 [facility] CHEM PANEL A/G Ratio 0.9 0.7 - 1.6 03/12/2018 [facility] CHEM PANEL B/C Ratio 10 6 - 25 03/12/2018 [facility] CHEM PANEL AGAP 14.2 10.0 - 20.0 03/12/2018 [facility] ENDOCRINOLOGY S Preg Ne gative *NA* (03/12/18 12:37 PM) Negative 03/12/2018 [facility] HEMATOLOGY Basophils # 0.1 0.0 - 0.2 03/12/2018 [facility] HEMATOLOGY Hypochrom 1+ (03/12/18 12:37 PM) None Seen 03/12/2018 [facility] HEMATOLOGY Polychrom slight 03/12/2018 [facility] Anisocyte 1+ *ABN* (03/12/18 12:37 PM) None Seen 03/12/2018 [facility] HEMATOLOGY Microcyte 1+ *ABN* (03/12/18 12:37 PM) None Seen 03/12/2018 [facility] HEMATOLOGY Monocytes # 0.5 0.0 - 0.8 03/12/2018 [facility] HEMATOLOGY Eosinophils # 0.2 0.0 - 0.5 03/12/2018 [facility] Neutrophils # 6.0 1.5 - 8.1 03/12/2018 [facility] HEMATOLOGY Lymphocytes # 1.5 1.0 - 5.5 03/12/2018 [facility] HEMATOLOGY Eosinophils 3.0 0.0 - 4.0 03/12/2018 [facility] Basophils 0.9 0.0 - 1.0 03/12/2018 [facility] Monocytes 5.6 2.0 - 12.0 03/12/2018 [facility] Lymphocytes 18.4 20.0 - 40.0 03/12/2018 [facility] HEMATOLOGY Plt Morph Morena l (03/12/18 12:37 PM) 03/12/2018 [facility] Segs 72.1 45.0 - 75.0 03/12/2018 [facility] HEMATOLOGY Platelet 488 133 - 450 03/12/2018 [facility] HEMATOLOGY RDW 29.1 11.5 - 14.5 03/12/2018 [facility] MCHC 32.7 32.0 - 36.0 03/12/2018 [facility] MPV 8.5 7.4 - 10.4 03/12/2018 [facility] MCH 28.8 27.0 - 31.0 03/12/2018 [facility] HEMATOLOGY MCV 88.3 80.0 - 98.0 03/12/2018 [facility] HEMATOLOGY Hct 25.1 36.0 - 48.0 03/12/2018 [facility] Hgb 8.2 12.0 - 16.0 03/12/2018 [facility] HEMATOLOGY RBC 2.85 4.20 - 5.40 03/12/2018 [facility] HEMATOLOGY WBC 8.3 3.7 - 10.4 03/12/2018 [facility] HEMATOLOGY PTT 30.7 22.9 - 35.8 03/12/2018 [facility] HEMATOLOGY PT 14.5 12.0 - 14.7 03/12/2018 [facility] HEMATOLOGY INR 1.13 0.85 - 1.17 03/12/2018 [facility] URINE AND STOOL UA Urobilinogen <=1.0 mg/dL 0.1 - 1.0 03/06/2017 [facility] URINE AND STOOL UA Color Red 03/06/2017 [facility] URINE AND STOOL UA RBC 9 0 - 2 03/06/2017 [facility] URINE AND STOOL UA Blood Large *ABN* (03/06/17 2:19 PM) Negative 03/06/2017 [facility] URINE AND STOOL UA WBC 4 0 - 5 03/06/2017 [facility] URINE AND STOOL UA Nitrite Negative (03/06/17 2:19 PM) Negative 03/06/2017 [facility] URINE AND STOOL UA Leuk Est Negative (03/06/17 2:19 PM) Negative 03/06/2017 [facility] URINE AND STOOL UA Sq Epi Many /LPF Few /LPF 03/06/2017 [facility] URINE AND STOOL UA Bacteria Occasional /HPF None Seen /HPF 03/06/[address] [facility] [address] URINE AND STOOL UA Spec Grav 1.024 <=1.030 03/06/2017 [facility] URINE AND STOOL UA pH 6.0 5.0 - 8.0 03/06/2017 [facility] URINE AND STOOL UA Protein 30 mg/dL Negative mg/dL 03/06/2017 [facility] URINE AND STOOL UA Turbidity Slight *ABN* (03/06/17 2:19 PM) Clear 03/06/2017 [facility] URINE AND STOOL UA Ketones Negative mg/dL Negative mg/dL 03/06/[address] URINE AND STOOL UA Bili Negative *NA* (03/06/17 2:19 PM) Negative 03/06/2017 [facility] URINE AND STOOL UA Glucose 500 mg/dL Negative mg/dL 03/06/2017 [facility] CARDIAC ENZYMES CK MB Index 1.0 0.0 - 2.5 03/06/2017 [facility] CARDIAC ENZYMES BNP 16 <=100 pg/mL 03/06/2017 [facility] CARDIAC ENZYMES Total CK 114 12 - 191 03/06/2017 [facility] CARDIAC ENZYMES CK MB 1.1 0.5 - 3.6 03/06/2017 [facility] CARDIAC ENZYMES Troponin-I <0.02 0.00 - 0.40 03/06/2017 [facility] CHEM PANEL Lipase Lvl 180 73 - 393 03/06/2017 [facility] CHEM PANEL Total Protein 7.3 6.4 - 8.4 03/06/2017 [facility] CHEM PANEL Calcium Lvl 8.0 8.5 - 10.5 03/06/2017 [facility] CHEM PANEL Glucose Lvl 354 70 - 99 03/06/2017 [facility] CHEM PANEL Creatinine Lvl 0.87 0.50 - 1.40 03/06/2017 [facility] CHEM PANEL BUN 11 7 - 22 03/06/2017 [facility] CHEM PANEL eGFR 84 03/06/2017 Result Comment: The eGFR is calculated using the [...] from the National Kidney Disease Education Program (NKDEP) which additionally recommends that when the eGFR is used in patients with extremes of body mass index for purposes of drug dosing, the eGFR should be multiplied by the estimated BMI. [facility] CHEM PANEL AGAP 14.9 10.0 - 20.0 03/06/2017 [facility] CHEM PANEL B/C Ratio 13 6 - 25 03/06/2017 [facility] CHEM PANEL Globulin 3.9 2.7 - 4.2 03/06/2017 [facility] CHEM PANEL A/G Ratio 0.9 0.7 - 1.6 03/06/2017 [facility] CHEM PANEL AST 25 0 - 37 03/06/2017 [facility] CHEM PANEL Alk Phos 169 39 - 136 03/06/2017 [facility] CHEM PANEL Bili Total 0.3 0.2 - 1.3 03/06/2017 [facility] CHEM PANEL ALT 28 0 - 65 03/06/2017 [facility] CHEM PANEL Albumin Lvl 3.4 3.5 - 5.0 03/06/2017 [facility] CHEM PANEL Sodium Lvl 135 135 - 145 03/06/2017 [facility] CHEM PANEL Potassium Lvl 3.9 3.5 - 5.1 03/06/2017 [facility] CHEM PANEL Chloride Lvl 99 95 - 109 03/06/2017 [facility] CHEM PANEL CO2 25 24 - 32 03/06/2017 [facility] ENDOCRINOLOGY S Preg Ne gative *NA* (03/06/17 1:07 PM) Negative 03/06/2017 [facility] HEMATOLOGY Microcyte 2+ *ABN* (03/06/17 1:07 PM) None Seen 03/06/2017 [facility] HEMATOLOGY Basophils # 0.1 0.0 - 0.2 03/06/2017 [facility] HEMATOLOGY Segs-Bands # 7.1 1.5 - 8.1 03/06/2017 [facility] HEMATOLOGY Basophils 1.1 0.0 - 1.0 03/06/2017 [facility] HEMATOLOGY Monocytes # 0.6 0.0 - 0.8 03/06/2017 [facility] HEMATOLOGY Lymphocytes # 2.4 1.0 - 5.5 03/06/2017 [facility] HEMATOLOGY Eosinophils # 0.5 0.0 - 0.5 03/06/2017 [facility] HEMATOLOGY Segs 66.2 45.0 - 75.0 03/06/2017 [facility] HEMATOLOGY Eosinophils 4.6 0.0 - 4.0 03/06/2017 [facility] HEMATOLOGY Monocytes 5.8 2.0 - 12.0 03/06/2017 [facility] HEMATOLOGY Lymphocytes 22.3 20.0 - 40.0 03/06/2017 [facility] HEMATOLOGY RDW 17.6 11.5 - 14.5 03/06/2017 [facility] HEMATOLOGY Platelet 567 133 - 450 03/06/2017 [facility] HEMATOLOGY Hgb 8.0 12.0 - 16.0 03/06/2017 [facility] HEMATOLOGY MCV 69.7 80.0 - 98.0 03/06/2017 [facility] HEMATOLOGY MCH 21.3 27.0 - 31.0 03/06/2017 [facility] HEMATOLOGY MCHC 30.5 32.0 - 36.0 03/06/2017 [facility] HEMATOLOGY Hct 26.3 36.0 - 48.0 03/06/2017 [facility] HEMATOLOGY RBC 3.77 4.20 - 5.40 03/06/2017 [facility] HEMATOLOGY WBC 10.7 3.7 - 10.4 03/06/2017 [facility] HEMATOLOGY MPV 8.4 7.4 - 10.4 03/06/2017 [facility] MCHC 30.5 32.0 - 36.0 09/21/2016 [facility] HEMATOLOGY RDW 18.0 11.5 - 14.5 09/21/2016 [facility] HEMATOLOGY Platelet 530 133 - 450 09/21/2016 [facility] MPV 8.3 7.4 - 10.4 09/21/2016 [facility] Hgb 8.2 12.0 - 16.0 09/21/2016 [facility] Hct 27.0 36.0 - 48.0 09/21/2016 [facility] MCV 70.6 80.0 - 98.0 09/21/2016 [facility] MCH 21.5 27.0 - 31.0 09/21/2016 [facility] WBC 11.0 3.7 - 10.4 09/21/2016 [facility] RBC 3.83 4.20 - 5.40 09/21/2016 [facility] Target Cell Slight 09/21/2016 [facility] Polychrom Slight 09/21/2016 [facility] Hypochrom 1+ (09/21/16 6:22 AM) None Seen 09/21/2016 [facility] Basophils # 0.1 0.0 - 0.2 09/21/2016 [facility] Eosinophils # 0.4 0.0 - 0.5 09/21/2016 [facility] Monocytes # 0.5 0.0 - 0.8 09/21/2016 [facility] Lymphocytes # 1.2 1.0 - 5.5 09/21/2016 [facility] Microcyte 2+ *ABN* (09/21/16 6:22 AM) None Seen 09/21/2016 [facility] Segs-Bands # 8.8 1.5 - 8.1 09/21/2016 [facility] Basophils 1.1 0.0 - 1.0 09/21/2016 [facility] Eosinophils 3.8 0.0 - 4.0 09/21/2016 [facility] Monocytes 4.2 2.0 - 12.0 09/21/2016 [facility] Lymphocytes 11.3 20.0 - 40.0 09/21/2016 [facility] Segs 79.6 45.0 - 75.0 09/21/2016 [facility] HEMATOLOGY Plt Morph Morena l (09/21/16 6:22 AM) 09/21/2016 [facility] ANEMIA STUDY Vitamin B12 Lvl 452 254 - 1320 09/20/2016 [facility] ANEMIA STUDY Ferritin Lvl 6 5 - 204 09/20/2016 [facility] ANEMIA STUDY TIBC 487 228 - 428 09/20/2016 [facility] ANEMIA STUDY % Satur Fe 7 12 - 57 09/20/2016 [facility] ANEMIA STUDY Iron 33 30 - 160 09/20/2016 [facility] ANEMIA STUDY UIBC 454 110 - 370 09/20/2016 [facility] ANEMIA STUDY Folate Lvl 8.8 >=3.0 ng/mL 09/20/2016 [facility] Hgb 8.5 12.0 - 16.0 09/20/2016 [facility] Hct 27.7 36.0 - 48.0 09/20/2016 [facility] Retic Auto 1.9 0.5 - 1.5 09/20/2016 [facility] CHEM PANEL Globulin 4.0 2.7 - 4.2 09/20/2016 [facility] CHEM PANEL B/C Ratio 17 6 - 25 09/20/2016 [facility] CHEM PANEL AGAP 15.0 10.0 - 20.0 09/20/2016 [facility] CHEM PANEL A/G Ratio 0.7 0.7 - 1.6 09/20/2016 [facility] CHEM PANEL eGFR 90 09/20/2016 Result Comment: The eGFR is calculated using the [...] from the National Kidney Disease Education Program (NKDEP) which additionally recommends that when the eGFR is used in patients with extremes of body mass index for purposes of drug dosing, the eGFR should be multiplied by the estimated BMI. [facility] CHEM PANEL Albumin Lvl 2.9 3.5 - 5.0 09/20/2016 [facility] CHEM PANEL ALT 35 0 - 65 09/20/2016 [facility] CHEM PANEL Bili Total 0.6 0.2 - 1.3 09/20/2016 [facility] CHEM PANEL Alk Phos 173 39 - 136 09/20/2016 [facility] CHEM PANEL AST 33 0 - 37 09/20/2016 [facility] CHEM PANEL Calcium Lvl 8.5 8.5 - 10.5 09/20/2016 [facility] CHEM PANEL BUN 14 7 - 22 09/20/2016 [facility] CHEM PANEL Chloride Lvl 99 95 - 109 09/20/2016 [facility] CHEM PANEL CO2 26 24 - 32 09/20/2016 [facility] CHEM PANEL Potassium Lvl 4.0 3.5 - 5.1 09/20/2016 [facility] CHEM PANEL Total Protein 6.9 6.4 - 8.4 09/20/2016 [facility] CHEM PANEL Glucose Lvl 300 70 - 99 09/20/2016 [facility] CHEM PANEL Creatinine Lvl 0.83 0.50 - 1.40 09/20/2016 [facility] CHEM PANEL Sodium Lvl 136 135 - 145 09/20/2016 [facility] ENDOCRINOLOGY S Preg Ne gative *NA* (09/20/16 4:39 AM) Negative 09/20/2016 [facility] HEMATOLOGY Microcyte 2+ *ABN* (09/20/16 4:39 AM) None Seen 09/20/2016 [facility] HEMATOLOGY Basophils # 0.1 0.0 - 0.2 09/20/2016 [facility] HEMATOLOGY Monocytes # 0.8 0.0 - 0.8 09/20/2016 [facility] HEMATOLOGY Eosinophils # 0.4 0.0 - 0.5 09/20/2016 [facility] HEMATOLOGY Lymphocytes 23.1 20.0 - 40.0 09/20/2016 [facility] HEMATOLOGY Segs 63.7 45.0 - 75.0 09/20/2016 [facility] HEMATOLOGY Eosinophils 3.7 0.0 - 4.0 09/20/2016 [facility] HEMATOLOGY Lymphocytes # 2.2 1.0 - 5.5 09/20/2016 [facility] HEMATOLOGY Segs-Bands # 6.1 1.5 - 8.1 09/20/2016 [facility] HEMATOLOGY Basophils 1.0 0.0 - 1.0 09/20/2016 [facility] HEMATOLOGY Monocytes 8.5 2.0 - 12.0 09/20/2016 [facility] HEMATOLOGY MCHC 30.4 32.0 - 36.0 09/20/2016 [facility] MPV 8.2 7.4 - 10.4 09/20/2016 [facility] HEMATOLOGY RDW 17.6 11.5 - 14.5 09/20/2016 [facility] HEMATOLOGY MCH 21.5 27.0 - 31.0 09/20/2016 [facility] Platelet 513 133 - 450 09/20/2016 [facility] MCV 70.6 80.0 - 98.0 09/20/2016 [facility] Hct 26.0 36.0 - 48.0 09/20/2016 [facility] Hgb 7.9 12.0 - 16.0 09/20/2016 [facility] RBC 3.68 4.20 - 5.40 09/20/2016 [facility] WBC 9.6 3.7 - 10.4 09/20/2016 [facility] CARDIAC ENZYMES Troponin-I <0.02 0.00 - 0.40 09/20/2016 [facility] CARDIAC ENZYMES Total CK 62 12 - 191 09/20/2016 [facility] CARDIAC ENZYMES Troponin-I <0.02 0.00 - 0.40 09/19/2016 [facility] CARDIAC ENZYMES Total CK 67 12 - 191 09/19/2016 [facility] CARDIAC ENZYMES CK MB Index 0.5 0.0 - 2.5 09/19/2016 [facility] CARDIAC ENZYMES BNP 25 <=100 pg/mL 09/19/2016 [facility] CARDIAC ENZYMES Total CK 168 12 - 191 09/19/2016 [facility] CARDIAC ENZYMES CK MB 0.8 0.5 - 3.6 09/19/2016 [facility] CARDIAC ENZYMES Troponin-I <0.02 0.00 - 0.40 09/19/2016 [facility] CHEM PANEL eGFR 78 09/19/2016 Result Comment: The eGFR is calculated using the [...] from the National Kidney Disease Education Program (NKDEP) which additionally recommends that when the eGFR is used in patients with extremes of body mass index for purposes of drug dosing, the eGFR should be multiplied by the estimated BMI. [facility] CHEM PANEL AGAP 15.0 10.0 - 20.0 09/19/2016 [facility] CHEM PANEL BUN 12 7 - 22 09/19/2016 [facility] CHEM PANEL Potassium Lvl 5.0 3.5 - 5.1 09/19/2016 [facility] CHEM PANEL Sodium Lvl 133 135 - 145 09/19/2016 [facility] CHEM PANEL Creatinine Lvl 0.93 0.50 - 1.40 09/19/2016 [facility] CHEM PANEL Glucose Lvl 250 70 - 99 09/19/2016 [facility] CHEM PANEL Chloride Lvl 99 95 - 109 09/19/2016 [facility] CHEM PANEL Calcium Lvl 9.0 8.5 - 10.5 09/19/2016 [facility] CHEM PANEL CO2 24 24 - 32 09/19/2016 [facility] Lymphocytes # 2.0 1.0 - 5.5 09/19/2016 [facility] Eosinophils # 0.2 0.0 - 0.5 09/19/2016 [facility] Basophils # 0.1 0.0 - 0.2 09/19/2016 [facility] Microcyte 1+ *ABN* (09/19/16 10:53 AM) None Seen 09/19/2016 [facility] Monocytes # 0.7 0.0 - 0.8 09/19/2016 [facility] Segs-Bands # 9.0 1.5 - 8.1 09/19/2016 [facility] Segs 74.8 45.0 - 75.0 09/19/2016 [facility] Lymphocytes 16.5 20.0 - 40.0 09/19/2016 [facility] Eosinophils 1.8 0.0 - 4.0 09/19/2016 [facility] Monocytes 6.0 2.0 - 12.0 09/19/2016 [facility] Basophils 0.9 0.0 - 1.0 09/19/2016 [facility] D-Dimer 0.83 09/19/2016 [facility] PTT 27.6 22.9 - 35.8 09/19/2016 [facility] INR 1.02 0.85 - 1.17 09/19/2016 [facility] PT 13.6 12.0 - 14.7 09/19/2016 [facility] MCHC 30.5 32.0 - 36.0 09/19/2016 [facility] RDW 18.3 11.5 - 14.5 09/19/2016 [facility] Platelet 625 133 - 450 09/19/2016 [facility] MPV 8.5 7.4 - 10.4 09/19/2016 [facility] RBC 4.15 4.20 - 5.40 09/19/2016 [facility] WBC 12.0 3.7 - 10.4 09/19/2016 [facility] HEMATOLOGY MCV 71.0 80.0 - 98.0 09/19/2016 [facility] MCH 21.6 27.0 - 31.0 09/19/2016 [facility] BLOOD BANK RESULTS ABO/Rh O NEG 01/12/2016 [facility] BLOOD BANK RESULTS Antibody Scrn Negative (01/12/16 4:32 PM) 01/12/2016 [facility] CARDIAC ENZYMES CK MB 2.3 0.5 - 3.6 01/12/2016 [facility] CARDIAC ENZYMES Total CK 352 12 - 191 01/12/2016 [facility] CARDIAC ENZYMES Troponin-I <0.02 0.00 - 0.40 01/12/2016 [facility] CARDIAC ENZYMES CK MB Index 0.7 0.0 - 2.5 01/12/2016 [facility] CHEM PANEL Lipase Lvl 147 73 - 393 01/12/2016 [facility] CHEM PANEL eGFR 68 01/12/2016 Result Comment: The eGFR is calculated using the [...] from the National Kidney Disease Education Program (NKDEP) which additionally recommends that when the eGFR is used in patients with extremes of body mass index for purposes of drug dosing, the eGFR should be multiplied by the estimated BMI. [facility] CHEM PANEL BUN 10 7 - 22 01/12/2016 [facility] CHEM PANEL Glucose Lvl 221 70 - 99 01/12/2016 [facility] CHEM PANEL CO2 24 24 - 32 01/12/2016 [facility] CHEM PANEL Chloride Lvl 98 95 - 109 01/12/2016 [facility] CHEM PANEL Potassium Lvl 3.7 3.5 - 5.1 01/12/2016 [facility] CHEM PANEL Sodium Lvl 132 135 - 145 01/12/2016 [facility] CHEM PANEL Creatinine Lvl 1.04 0.50 - 1.40 01/12/2016 [facility] CHEM PANEL Albumin Lvl 3.5 3.5 - 5.0 01/12/2016 [facility] CHEM PANEL Total Protein 7.5 6.4 - 8.4 01/12/2016 [facility] CHEM PANEL Calcium Lvl 7.7 8.5 - 10.5 01/12/2016 [facility] CHEM PANEL AGAP 13.7 10.0 - 20.0 01/12/2016 [facility] CHEM PANEL Bili Total 0.3 0.2 - 1.3 01/12/2016 [facility] CHEM PANEL Alk Phos 130 39 - 136 01/12/2016 [facility] CHEM PANEL A/G Ratio 0.9 0.7 - 1.6 01/12/2016 [facility] CHEM PANEL Globulin 4.0 2.7 - 4.2 01/12/2016 [facility] CHEM PANEL B/C Ratio 10 6 - 25 01/12/2016 [facility] CHEM PANEL ALT 191 0 - 65 01/12/2016 [facility] CHEM PANEL AST 407 0 - 37 01/12/2016 [facility] CHEM PANEL Magnesium Lvl 1.8 1.8 - 2.4 01/12/2016 [facility] HEMATOLOGY Platelet 480 133 - 450 01/12/2016 [facility] HEMATOLOGY MPV 8.2 7.4 - 10.4 01/12/2016 [facility] HEMATOLOGY WBC 6.4 3.7 - 10.4 01/12/2016 [facility] HEMATOLOGY MCHC 31.1 32.0 - 36.0 01/12/2016 [facility] HEMATOLOGY RDW 18.4 11.5 - 14.5 01/12/2016 [facility] HEMATOLOGY Hct 26.9 36.0 - 48.0 01/12/2016 [facility] HEMATOLOGY MCV 73.8 80.0 - 98.0 01/12/2016 [facility] HEMATOLOGY MCH 23.0 27.0 - 31.0 01/12/2016 [facility] HEMATOLOGY RBC 3.65 4.20 - 5.40 01/12/2016 [facility] HEMATOLOGY Hgb 8.4 12.0 - 16.0 01/12/2016 [facility] HEMATOLOGY Microcyte 1+ *ABN* (01/12/16 4:32 PM) None Seen 01/12/2016 [facility] HEMATOLOGY Segs-Bands # 4.7 1.5 - 8.1 01/12/2016 [facility] HEMATOLOGY Lymphocytes # 1.2 1.0 - 5.5 01/12/2016 [facility] HEMATOLOGY Monocytes # 0.3 0.0 - 0.8 01/12/2016 [facility] HEMATOLOGY Eosinophils # 0.2 0.0 - 0.5 01/12/2016 [facility] HEMATOLOGY Basophils # 0.1 0.0 - 0.2 01/12/2016 [facility] HEMATOLOGY Segs 72.9 45.0 - 75.0 01/12/2016 [facility] HEMATOLOGY Lymphocytes 18.0 20.0 - 40.0 01/12/2016 [facility] HEMATOLOGY Monocytes 4.8 2.0 - 12.0 01/12/2016 [facility] HEMATOLOGY Eosinophils 2.9 0.0 - 4.0 01/12/2016 [facility] HEMATOLOGY Basophils 1.4 0.0 - 1.0 01/12/2016 [facility] URINE AND STOOL UA Urobilinogen <=1.0 mg/dL 0.1 - 1.0 01/12/2016 [facility] URINE AND STOOL UA Turbidity Marked *ABN* (01/12/16 4:32 PM) Clear 01/12/2016 [facility] URINE AND STOOL UA Ketones Negative mg/dL Negative mg/dL 01/12/2016 [facility] URINE AND STOOL UA Color Yellow *NA* (01/12/16 4:32 PM) Yellow 01/12/2016 [facility] URINE AND STOOL UA RBC 5 0 - 2 01/12/2016 [facility] URINE AND STOOL UA Sq Epi Many /LPF Few /LPF 01/12/2016 [facility] URINE AND STOOL UA Bacteria Many /HPF None Seen /HPF 01/12/2016 [facility] URINE AND STOOL UA WBC 14 0 - 5 01/12/2016 [facility] URINE AND STOOL UA Mucus Few /LPF None Seen /LPF 01/12/2016 [facility] URINE AND STOOL UA [place] Yeast Occasional /HPF None Seen /HPF 01/12/2016 [facility] URINE AND STOOL UA Spec Grav 1.020 <=1.030 01/12/2016 [facility] URINE AND STOOL UA Glucose Negative mg/dL Negative mg/dL 01/12/2016 [facility] URINE AND STOOL UA pH 6.0 5.0 - 8.0 01/12/2016 [facility] URINE AND STOOL UA Protein 100 mg/dL Negative mg/dL 01/12/2016 [facility] URINE AND STOOL UA Leuk Est Moderate *ABN* (01/12/16 4:32 PM) Negative 01/12/2016 [facility] URINE AND STOOL UA Nitrite Positive *ABN* (01/12/16 4:32 PM) Negative 01/12/2016 [facility] URINE AND STOOL UA Blood Small *ABN* (01/12/16 4:32 PM) Negative 01/12/2016 [facility] URINE AND STOOL UA Bili Negative *NA* (01/12/16 4:32 PM) Negative 01/12/2016 [facility] URINE CHEM U Preg Negat juan (01/12/16 4:32 PM) Negative 01/12/2016 [facility] CARDIAC ENZYMES Total CK 927 12 - 191 09/16/2015 [facility] ELECTROLYTES AGAP 13.3 10.0 - 20.0 09/16/2015 [facility] ELECTROLYTES eGFR 58 09/16/2015 Result Comment: The eGFR is calculated using the [...] from the National Kidney Disease Education Program (NKDEP) which additionally recommends that when the eGFR is used in patients with extremes of body mass index for purposes of drug dosing, the eGFR should be multiplied by the estimated BMI. [facility] ELECTROLYTES CO2 28 24 - 32 09/16/2015 [facility] ELECTROLYTES Calcium Lvl 8.4 8.5 - 10.5 09/16/2015 [facility] ELECTROLYTES Creatinine Lvl 1.1 9 0.50 - 1.40 09/16/2015 [facility] ELECTROLYTES BUN 8 7 - 22 09/16/2015 [facility] ELECTROLYTES Chloride Lvl 99 95 - 109 09/16/2015 [facility] ELECTROLYTES Potassium Lvl 4.3 3.5 - 5.1 09/16/2015 [facility] ELECTROLYTES Sodium Lvl 136 135 - 145 09/16/2015 [facility] ELECTROLYTES Glucose Lvl 173 70 - 99 09/16/2015 [facility] HEMATOLOGY MPV 8.1 7.4 - 10.4 09/16/2015 [facility] HEMATOLOGY Platelet 552 133 - 450 09/16/2015 [facility] HEMATOLOGY RDW 23.6 11.5 - 14.5 09/16/2015 [facility] HEMATOLOGY MCHC 29.4 32.0 - 36.0 09/16/2015 [facility] HEMATOLOGY MCH 21.4 27.0 - 31.0 09/16/2015 [facility] HEMATOLOGY RBC 4.67 4.20 - 5.40 09/16/2015 [facility] HEMATOLOGY WBC 12.5 3.7 - 10.4 09/16/2015 [facility] HEMATOLOGY MCV 73.0 80.0 - 98.0 09/16/2015 [facility] HEMATOLOGY Hct 34.1 36.0 - 48.0 09/16/2015 [facility] HEMATOLOGY Hgb 10.0 12.0 - 16.0 09/16/2015 [facility] HEMATOLOGY Basophils 1.9 0.0 - 1.0 09/16/2015 [facility] HEMATOLOGY Eosinophils 5.0 0.0 - 4.0 09/16/2015 [facility] HEMATOLOGY Monocytes 4.2 2.0 - 12.0 09/16/2015 [facility] HEMATOLOGY Lymphocytes 21.6 20.0 - 40.0 09/16/2015 [facility] HEMATOLOGY Segs 67.3 45.0 - 75.0 09/16/2015 [facility] HEMATOLOGY Hypochrom 2+ (09/16/15 9:00 AM) None Seen 09/16/2015 [facility] HEMATOLOGY Eosinophils # 0.6 0.0 - 0.5 09/16/2015 [facility] HEMATOLOGY Lymphocytes # 2.7 1.0 - 5.5 09/16/2015 [facility] HEMATOLOGY Monocytes # 0.5 0.0 - 0.8 09/16/2015 [facility] HEMATOLOGY Segs-Bands # 8.4 1.5 - 8.1 09/16/2015 [facility] HEMATOLOGY Basophils # 0.2 0.0 - 0.2 09/16/2015 [facility] HEMATOLOGY Microcyte 1+ *ABN* (09/16/15 9:00 AM) None Seen 09/16/2015 [facility] HEMATOLOGY Plt Morph Morena l (09/16/15 9:00 AM) 09/16/2015 [facility] RDW 20.7 11.5 - 14.5 09/16/2015 [facility] MPV 7.9 7.4 - 10.4 09/16/2015 [facility] Platelet 548 133 - 450 09/16/2015 [facility] MCHC 28.5 32.0 - 36.0 09/16/2015 [facility] HEMATOLOGY Hct 25.2 36.0 - 48.0 09/16/2015 [facility] HEMATOLOGY MCV 67.8 80.0 - 98.0 09/16/2015 [facility] MCH 19.3 27.0 - 31.0 09/16/2015 [facility] WBC 11.2 3.7 - 10.4 09/16/2015 [facility] RBC 3.72 4.20 - 5.40 09/16/2015 [facility] Hgb 7.2 12.0 - 16.0 09/16/2015 [facility] BLOOD BANK RESULTS RBC product Product available 1 (09/15/15 5:52 PM) 09/15/2015 Result Comment: 09/15/2015 1 8:16 [id number]
Called to Arelis Anthony at 09/15/2015 18:16 by Shar Flores. [facility] ANEMIA STUDY Iron 533 30 - 160 09/15/2015 [facility] ANEMIA STUDY Folate Lvl 8.5 >=3.0 ng/mL 09/15/2015 [facility] ANEMIA STUDY Vitamin B12 Lvl 666 254 - 1320 09/15/2015 [facility] ANEMIA STUDY Ferritin Lvl 5 5 - 204 09/15/2015 [facility] CARDIAC ENZYMES Total CK 1159 12 - 191 09/15/2015 [facility] CHEM PANEL eGFR 60 09/15/2015 Result Comment: The eGFR is calculated using the [...] from the National Kidney Disease Education Program (NKDEP) which additionally recommends that when the eGFR is used in patients with extremes of body mass index for purposes of drug dosing, the eGFR should be multiplied by the estimated BMI. [facility] CHEM PANEL Sodium Lvl 136 135 - 145 09/15/2015 [facility] CHEM PANEL Potassium Lvl 4.0 3.5 - 5.1 09/15/2015 [facility] CHEM PANEL CO2 26 24 - 32 09/15/2015 [facility] CHEM PANEL Chloride Lvl 102 95 - 109 09/15/2015 [facility] CHEM PANEL Calcium Lvl 7.9 8.5 - 10.5 09/15/2015 [facility] CHEM PANEL Creatinine Lvl 1.17 0.50 - 1.40 09/15/2015 [facility] CHEM PANEL BUN 13 7 - 22 09/15/2015 [facility] CHEM PANEL Glucose Lvl 229 70 - 99 09/15/2015 [facility] CHEM PANEL AGAP 12.0 10.0 - 20.0 09/15/2015 [facility] HEMATOLOGY MPV 8.1 7.4 - 10.4 09/15/2015 [facility] MCV 67.8 80.0 - 98.0 09/15/2015 [facility] Hgb 7.2 12.0 - 16.0 09/15/2015 [facility] RBC 3.69 4.20 - 5.40 09/15/2015 [facility] Hct 25.0 36.0 - 48.0 09/15/2015 [facility] MCH 19.6 27.0 - 31.0 09/15/2015 [facility] WBC 10.8 3.7 - 10.4 09/15/2015 [facility] Platelet 517 133 - 450 09/15/2015 [facility] RDW 21.0 11.5 - 14.5 09/15/2015 [facility] MCHC 28.9 32.0 - 36.0 09/15/2015 [facility] Hypochrom 2+ (09/15/15 3:36 AM) None Seen 09/15/2015 [facility] Microcyte 3+ *NA* (09/15/15 3:36 AM) None Seen 09/15/2015 [facility] Anisocyte 1+ *ABN* (09/15/15 3:36 AM) None Seen 09/15/2015 [facility] HEMATOLOGY Eosinophils # 0.5 0.0 - 0.5 09/15/2015 [facility] HEMATOLOGY Monocytes # 0.4 0.0 - 0.8 09/15/2015 [facility] HEMATOLOGY Lymphocytes 22.4 20.0 - 40.0 09/15/2015 [facility] HEMATOLOGY Segs 69.3 45.0 - 75.0 09/15/2015 [facility] HEMATOLOGY Plt Morph Morena l (09/15/15 3:36 AM) 09/15/2015 [facility] HEMATOLOGY Eosinophils 4.2 0.0 - 4.0 09/15/2015 [facility] HEMATOLOGY Monocytes 3.7 2.0 - 12.0 09/15/2015 [facility] HEMATOLOGY Basophils 0.4 0.0 - 1.0 09/15/2015 [facility] HEMATOLOGY Lymphocytes # 2.4 1.0 - 5.5 09/15/2015 [facility] Segs-Bands # 7.5 1.5 - 8.1 09/15/2015 [facility] RBC Morph See N ote (09/15/15 3:36 AM) 09/15/2015 [facility] URINE AND STOOL Occult Bld Stl Negative (09/14/15 8:00 PM) Negative 09/15/2015 [facility] ANEMIA STUDY Ferritin Lvl 4 5 - 204 09/15/2015 [facility] ANEMIA STUDY UIBC 632 110 - 370 09/15/2015 [facility] ANEMIA STUDY % Satur Fe 3 12 - 57 09/15/2015 [facility] ANEMIA STUDY TIBC 650 228 - 428 09/15/2015 [facility] ANEMIA STUDY Iron 18 30 - 160 09/15/2015 [facility] BLOOD BANK RESULTS ABO/Rh O NEG 09/15/2015 [facility] BLOOD [facility] RESULTS Antibody Scrn Negative (09/14/15 7:31 PM) 09/15/2015 [facility] URINE AND STOOL UA Urobilinogen <=1.0 mg/dL 0.1 - 1.0 09/14/2015 [facility] URINE AND STOOL UA Color Yellow *NA* (09/14/15 6:54 PM) Yellow 09/14/2015 [facility] URINE AND STOOL UA Turbidity Slight *ABN* (09/14/15 6:54 PM) Clear 09/14/2015 [facility] URINE AND STOOL UA Spec Grav 1.012 <=1.030 09/14/2015 [facility] URINE AND STOOL UA pH 6.0 5.0 - 8.0 09/14/2015 [facility] URINE AND STOOL UA RBC 2 0 - 2 09/14/2015 [facility] URINE AND STOOL UA Bacteria Occasional /HPF None Seen /HPF 09/14/2015 [facility] URINE AND STOOL UA Blood Small *ABN* (09/14/15 6:54 PM) Negative 09/14/2015 [facility] URINE AND STOOL UA Protein Negative mg/dL Negative mg/dL 09/14/2015 [facility] URINE AND STOOL UA Glucose Negative mg/dL Negative mg/dL 09/14/2015 [facility] URINE AND STOOL UA Ketones Negative mg/dL Negative mg/dL 09/14/2015 [facility] URINE AND STOOL UA Bili Negative *NA* (09/14/15 6:54 PM) Negative 09/14/2015 [facility] URINE AND STOOL UA Nitrite Positive *ABN* (09/14/15 6:54 PM) Negative 09/14/2015 [facility] URINE AND STOOL UA Leuk Est Small *ABN* (09/14/15 6:54 PM) Negative 09/14/2015 [facility] URINE AND STOOL UA Sq Epi Occasional /LPF Few /LPF 09/14/2015 [facility] URINE AND STOOL UA WBC 5 0 - 5 09/14/2015 [facility] CARDIAC ENZYMES CK MB Index 0.5 0.0 - 2.5 09/14/2015 [facility] CARDIAC ENZYMES Total CK 1400 12 - 191 09/14/2015 [facility] CARDIAC ENZYMES Troponin-I <0.02 0.00 - 0.40 09/14/2015 [facility] CARDIAC ENZYMES CK MB 7.2 0.5 - 3.6 09/14/2015 [facility] CHEM PANEL eGFR 46 09/14/2015 Result Comment: The eGFR is calculated using the [...] from the National Kidney Disease Education Program (NKDEP) which additionally recommends that when the eGFR is used in patients with extremes of body mass index for purposes of drug dosing, the eGFR should be multiplied by the estimated BMI. [facility] CHEM PANEL A/G Ratio 1.0 0.7 - 1.6 09/14/2015 [facility] CHEM PANEL Glucose Lvl 219 70 - 99 09/14/2015 [facility] CHEM PANEL AGAP 10.8 10.0 - 20.0 09/14/2015 [facility] CHEM PANEL Globulin 4.0 2.0 - 4.0 09/14/2015 [facility] CHEM PANEL B/C Ratio 10 6 - 25 09/14/2015 [facility] CHEM PANEL Albumin Lvl 3.9 3.5 - 5.0 09/14/2015 [facility] CHEM PANEL Alk Phos 120 39 - 136 09/14/2015 [facility] CHEM PANEL Bili Total 0.2 0.2 - 1.3 09/14/2015 [facility] CHEM PANEL ALT 63 0 - 65 09/14/2015 [facility] CHEM PANEL AST 87 0 - 37 09/14/2015 [facility] CHEM PANEL Chloride Lvl 97 95 - 109 09/14/2015 [facility] CHEM PANEL Sodium Lvl 132 135 - 145 09/14/2015 [facility] CHEM PANEL BUN 14 7 - 22 09/14/2015 [facility] CHEM PANEL Creatinine Lvl 1.46 0.50 - 1.40 09/14/2015 [facility] CHEM PANEL Potassium Lvl 3.8 3.5 - 5.1 09/14/2015 [facility] CHEM PANEL Calcium Lvl 8.2 8.5 - 10.5 09/14/2015 [facility] CHEM PANEL Total Protein 7.9 6.4 - 8.4 09/14/2015 [facility] CHEM PANEL CO2 28 24 - 32 09/14/2015 [facility] HEMATOLOGY Microcyte 2+ *ABN* (09/14/15 3:20 PM) None Seen 09/14/2015 [facility] HEMATOLOGY Hypochrom 1+ (09/14/15 3:20 PM) None Seen 09/14/2015 [facility] HEMATOLOGY Segs-Bands # 6.2 1.5 - 8.1 09/14/2015 [facility] HEMATOLOGY Lymphocytes # 2.9 1.0 - 5.5 09/14/2015 [facility] HEMATOLOGY Monocytes # 0.5 0.0 - 0.8 09/14/2015 [facility] HEMATOLOGY Eosinophils # 0.4 0.0 - 0.5 09/14/2015 [facility] HEMATOLOGY Basophils # 0.2 0.0 - 0.2 09/14/2015 [facility] HEMATOLOGY Segs 61.3 45.0 - 75.0 09/14/2015 [facility] HEMATOLOGY Plt Morph Morena l (09/14/15 3:20 PM) 09/14/2015 [facility] HEMATOLOGY Lymphocytes 28.3 20.0 - 40.0 09/14/2015 [facility] HEMATOLOGY Basophils 1.8 0.0 - 1.0 09/14/2015 [facility] HEMATOLOGY Monocytes 4.6 2.0 - 12.0 09/14/2015 [facility] HEMATOLOGY Eosinophils 4.0 0.0 - 4.0 09/14/2015 [facility] HEMATOLOGY RBC Morph See N ote (09/14/15 3:20 PM) 09/14/2015 [facility] CHEM PANEL Lactic Acid Lvl 2.2 0.5 - 2.2 03/20/2014 [facility] HEMATOLOGY MPV 8.0 7.4 - 10.4 03/20/2014 [facility] HEMATOLOGY WBC 14.6 3.7 - 10.4 03/20/2014 [facility] HEMATOLOGY RBC 4.92 4.20 - 5.40 03/20/2014 [facility] MCHC 30.1 32.0 - 36.0 03/20/2014 [facility] HEMATOLOGY Platelet 583 133 - 450 03/20/2014 [facility] HEMATOLOGY RDW 24.2 11.5 - 14.5 03/20/2014 [facility] HEMATOLOGY MCV 76.0 80.0 - 98.0 03/20/2014 [facility] MCH 22.9 27.0 - 31.0 03/20/2014 [facility] Hgb 11.2 12.0 - 16.0 03/20/2014 [facility] HEMATOLOGY Hct 37.4 36.0 - 48.0 03/20/2014 [facility] HEMATOLOGY Segs 71.3 45.0 - 75.0 03/20/2014 [facility] HEMATOLOGY Eosinophils # 0.3 0.0 - 0.5 03/20/2014 [facility] HEMATOLOGY Basophils # 0.2 0.0 - 0.2 03/20/2014 [facility] HEMATOLOGY Microcyte 1+ *ABN* (03/20/14 12:14 PM) None Seen 03/20/2014 [facility] HEMATOLOGY Lymphocytes # 2.6 1.0 - 5.5 03/20/2014 [facility] HEMATOLOGY Monocytes # 1.1 0.0 - 0.8 03/20/2014 [facility] HEMATOLOGY Monocytes 7.2 2.0 - 12.0 03/20/2014 [facility] HEMATOLOGY Lymphocytes 17.9 20.0 - 40.0 03/20/2014 [facility] HEMATOLOGY Segs-Bands # 10.4 1.5 - 8.1 03/20/2014 [facility] HEMATOLOGY Basophils 1.4 0.0 - 1.0 03/20/2014 [facility] HEMATOLOGY Eosinophils 2.2 0.0 - 4.0 03/20/2014 [facility] CHEM PANEL Bili Indirect >0.1 0.0 - 1.0 03/20/2014 [facility] CHEM PANEL Albumin Lvl 3.1 3.5 - 5.0 03/20/2014 [facility] CHEM PANEL Globulin 4.2 2.0 - 4.0 03/20/2014 [facility] CHEM PANEL A/G Ratio 0.7 0.7 - 1.6 03/20/2014 [facility] CHEM PANEL ALANINE AMINOTRANSFERASE 92 0 - 65 03/20/2014 <sup>10</sup>Result Comment: called Kim aaron to inform of correction on alt at 03/20/2014 04:45 by [facility] CHEM PANEL AST 128 0 - 37 03/20/2014 [facility] CHEM PANEL Alk Phos 130 39 - 136 03/20/2014 [facility] CHEM PANEL Bili Total 0.2 0.2 - 1.3 03/20/2014 [facility] CHEM PANEL Bili Direct <0.1 0.0 - 0.3 03/20/2014 [facility] CHEM PANEL Total Protein 7.3 6.4 - 8.4 03/20/2014 [facility] CHEM PANEL eGFR 83 03/20/2014 <sup>4</sup>Result Comment: The eGFR is calculated using the CKD-EPI formula. In most young, healthy individuals the eGFR will be >90 mL/min/1.73m2. The eGFR declines with age. An eGFR of 60-89 may be normal in some populations, particularly the elderly, for whom the CKD-EPI formula has not been extensively validated. Use of the eGFR is not recommended in the following populations:& lt;br/>
Individuals with unstable creatinine concentrations, including patients and those with serious co-morbid conditions.

Patients with extremes in muscle mass or diet.

The data above are obtained from the National Kidney Disease Education Program (NKDEP) which additionally recommends that when the eGFR is used in patients with extremes of body mass index for purposes of drug dosing, the eGFR should be multiplied by the estimated BMI. [facility] CHEM PANEL Potassium Lvl 3.8 3.5 - 5.1 03/20/2014 [facility] CHEM PANEL Chloride Lvl 102 95 - 109 03/20/2014 [facility] CHEM PANEL CO2 25 24 - 32 03/20/2014 [facility] CHEM PANEL Glucose Lvl 209 70 - 99 03/20/2014 <sup>7</sup>Interpretive Data: Adult ref erence range values reflect the clinical guidelines
of the [place] [employer]. [facility] CHEM PANEL BUN 15 7 - 22 03/20/2014 [facility] CHEM PANEL Calcium Lvl 8.2 8.5 - 10.5 03/20/2014 [facility] CHEM PANEL Creatinine Lvl 0.9 0.5 - 1.4 03/20/2014 [facility] CHEM PANEL Sodium Lvl 138 135 - 145 03/20/2014 [facility] CHEM PANEL AGAP 14.8 10.0 - 20.0 03/20/2014 [facility] HEMATOLOGY Platelet 596 133 - 450 03/20/2014 [facility] HEMATOLOGY MCH 23.1 27.0 - 31.0 03/20/2014 [facility] HEMATOLOGY RDW 23.4 11.5 - 14.5 03/20/2014 [facility] MCHC 30.4 32.0 - 36.0 03/20/2014 [facility] HEMATOLOGY MPV 7.9 7.4 - 10.4 03/20/2014 [facility] HEMATOLOGY MCV 76.1 80.0 - 98.0 03/20/2014 [facility] HEMATOLOGY RBC 4.82 4.20 - 5.40 03/20/2014 [facility] HEMATOLOGY WBC 15.2 3.7 - 10.4 03/20/2014 [facility] HEMATOLOGY Hct 36.6 36.0 - 48.0 03/20/2014 [facility] HEMATOLOGY Hgb 11.1 12.0 - 16.0 03/20/2014 [facility] HEMATOLOGY Basophils # 0.1 0.0 - 0.2 03/20/2014 [facility] Microcyte 1+ *ABN* (03/20/14 3:39 AM) None Seen 03/20/2014 [facility] HEMATOLOGY Eosinophils # 0.3 0.0 - 0.5 03/20/2014 [facility] Monocytes # 1.2 0.0 - 0.8 03/20/2014 [facility] HEMATOLOGY Segs 68.3 45.0 - 75.0 03/20/2014 [facility] HEMATOLOGY Lymphocytes 20.3 20.0 - 40.0 03/20/2014 [facility] HEMATOLOGY Monocytes 8.1 2.0 - 12.0 03/20/2014 [facility] HEMATOLOGY Eosinophils 2.3 0.0 - 4.0 03/20/2014 [facility] Segs-Bands # 10.4 1.5 - 8.1 03/20/2014 [facility] HEMATOLOGY Basophils 1.0 0.0 - 1.0 03/20/2014 [facility] Lymphocytes # 3.1 1.0 - 5.5 03/20/2014 [facility] BLOOD BANK RESULTS ABO/Rh O NEG 03/20/2014 [facility] BLOOD BANK RESULTS Antibody Scrn Negative (03/19/14 10:23 PM) 03/20/2014 [facility] CHEM PANEL Lactic Acid Lvl 2.3 0.5 - 2.2 03/20/2014 [facility] BLOOD [facility] RESULTS RBC product Product available 1 (03/19/14 8:45 PM) 03/20/2014 <sup>1</sup>Result Comment: 03/20/2014 00:12 [id number]
notified braden pace 03/20/2014 00:11/diane [facility] CHEM PANEL eGFR 83 03/19/2014 <sup>5</sup>Result Comment: The eGFR is calculated using the CKD-EPI formula. In most young, healthy individuals the eGFR will be >90 mL/min/1.73m2. The eGFR declines with age. An eGFR of 60-89 may be normal in some populations, particularly the elderly, for whom the CKD-EPI formula has not been extensively validated. Use of the eGFR is not recommended in the following populations:& lt;br/>
Individuals with unstable creatinine concentrations, including patients and those with serious co-morbid conditions.

Patients with extremes in muscle mass or diet.

The data above are obtained from the National Kidney Disease Education Program (NKDEP) which additionally recommends that when the eGFR is used in patients with extremes of body mass index for purposes of drug dosing, the eGFR should be multiplied by the estimated BMI. [facility] CHEM PANEL AGAP 13.6 10.0 - 20.0 03/19/2014 [facility] CHEM PANEL Calcium Lvl 8.9 8.5 - 10.5 03/19/2014 [facility] CHEM PANEL CO2 27 24 - 32 03/19/2014 [facility] CHEM PANEL Chloride Lvl 100 95 - 109 03/19/2014 [facility] CHEM PANEL Sodium Lvl 137 135 - 145 03/19/2014 [facility] CHEM PANEL Potassium Lvl 3.6 3.5 - 5.1 03/19/2014 [facility] CHEM PANEL Creatinine Lvl 0.9 0.5 - 1.4 03/19/2014 [facility] CHEM PANEL BUN 10 7 - 22 03/19/2014 [facility] CHEM PANEL Glucose Lvl 164 70 - 99 03/19/2014 <sup>8</sup>Interpretive Data: Adult ref erence range values reflect the clinical guidelines
of the [place] [employer]. [facility] CHEM PANEL Bili Indirect >0.2 0.0 - 1.0 03/19/2014 [facility] CHEM PANEL Alk Phos 125 39 - 136 03/19/2014 [facility] CHEM PANEL ASPARTATE TRANSAMINASE 17 2 0 - 37 03/19/2014 <sup>13</sup>Result Comment: Corrected r esults called to Krista Barkley at 03/19/2014 04:56 by MP. [facility] CHEM PANEL Globulin 3.9 2.0 - 4.0 03/19/2014 [facility] CHEM PANEL A/G Ratio 0.9 0.7 - 1.6 03/19/2014 [facility] CHEM PANEL ALANINE AMINOTRANSFERASE 72 0 - 65 03/19/2014 <sup>11</sup>Result Comment: Corrected r esults called to Krista Filippo at 03/19/2014 04:57 by MP. [facility] CHEM PANEL Albumin Lvl 3.5 3.5 - 5.0 03/19/2014 [facility] CHEM PANEL Total Protein 7.4 6.4 - 8.4 03/19/2014 [facility] CHEM PANEL Bili Direct <0.1 0.0 - 0.3 03/19/2014 [facility] CHEM PANEL Bili Total 0.3 0.2 - 1.3 03/19/2014 [facility] HEMATOLOGY Eosinophils 1.0 0.0 - 4.0 03/19/2014 [facility] HEMATOLOGY Eosinophils # 0.2 0.0 - 0.5 03/19/2014 [facility] HEMATOLOGY Microcyte 1+ *ABN* (03/19/14 3:17 AM) None Seen 03/19/2014 [facility] Basophils # 0.1 0.0 - 0.2 03/19/2014 [facility] Plt Morph Morena l (03/19/14 3:17 AM) 03/19/2014 [facility] HEMATOLOGY RBC Morph Morena l (03/19/14 3:17 AM) 03/19/2014 [facility] Monocytes 5.5 2.0 - 12.0 03/19/2014 [facility] HEMATOLOGY Segs 74.9 45.0 - 75.0 03/19/2014 [facility] HEMATOLOGY Lymphocytes 17.9 20.0 - 40.0 03/19/2014 [facility] Basophils 0.7 0.0 - 1.0 03/19/2014 [facility] Monocytes # 0.9 0.0 - 0.8 03/19/2014 [facility] Lymphocytes # 2.9 1.0 - 5.5 03/19/2014 [facility] Segs-Bands # 12.3 1.5 - 8.1 03/19/2014 [facility] Platelet 625 133 - 450 03/19/2014 [facility] MPV 8.0 7.4 - 10.4 03/19/2014 [facility] MCH 22.7 27.0 - 31.0 03/19/2014 [facility] MCV 74.6 80.0 - 98.0 03/19/2014 [facility] Hct 35.0 36.0 - 48.0 03/19/2014 [facility] Hgb 10.6 12.0 - 16.0 03/19/2014 [facility] RDW 23.2 11.5 - 14.5 03/19/2014 [facility] MCHC 30.4 32.0 - 36.0 03/19/2014 [facility] WBC 16.4 3.7 - 10.4 03/19/2014 [facility] RBC 4.69 4.20 - 5.40 03/19/2014 [facility] URINE CHEM U Preg Negat juan (03/18/14 1:52 PM) Negative 03/18/2014 [facility] CHEM PANEL eGFR 83 03/18/2014 <sup>6</sup>Result Comment: The eGFR is calculated using the CKD-EPI formula. In most young, healthy individuals the eGFR will be >90 mL/min/1.73m2. The eGFR declines with age. An eGFR of 60-89 may be normal in some populations, particularly the elderly, for whom the CKD-EPI formula has not been extensively validated. Use of the eGFR is not recommended in the following populations:& lt;br/>
Individuals with unstable creatinine concentrations, including patients and those with serious co-morbid conditions.

Patients with extremes in muscle mass or diet.

The data above are obtained from the National Kidney Disease Education Program (NKDEP) which additionally recommends that when the eGFR is used in patients with extremes of body mass index for purposes of drug dosing, the eGFR should be multiplied by the estimated BMI. [facility] CHEM PANEL Calcium Lvl 8.5 8.5 - 10.5 03/18/2014 [facility] CHEM PANEL Sodium Lvl 136 135 - 145 03/18/2014 [facility] CHEM PANEL Glucose Lvl 310 70 - 99 03/18/2014 <sup>9</sup>Interpretive Data: Adult ref erence range values reflect the clinical guidelines
of the [place] [employer]. [facility] CHEM PANEL BUN 9 7 - 22 03/18/2014 [facility] CHEM PANEL AGAP 17.6 10.0 - 20.0 03/18/2014 [facility] CHEM PANEL Chloride Lvl 100 95 - 109 03/18/2014 [facility] CHEM PANEL Creatinine Lvl 0.9 0.5 - 1.4 03/18/2014 [facility] CHEM PANEL Potassium Lvl 4.6 3.5 - 5.1 03/18/2014 [facility] CHEM PANEL CO2 23 24 - 32 03/18/2014 [facility] CHEM PANEL ALANINE AMINOTRANSFERASE 45 0 - 65 03/18/2014 <sup>12</sup>Result Comment: Spoke to Karen Barkley 03/18/2014 06:15 [facility] CHEM PANEL A/G Ratio 0.9 0.7 - 1.6 03/18/2014 [facility] CHEM PANEL Alk Phos 139 39 - 136 03/18/2014 [facility] CHEM PANEL Bili Total 0.3 0.2 - 1.3 03/18/2014 [facility] CHEM PANEL Bili Direct <0.1 0.0 - 0.3 03/18/2014 [facility] CHEM PANEL ASPARTATE TRANSAMINASE 49 0 - 37 03/18/2014 [facility] CHEM PANEL Bili Indirect >0.2 0.0 - 1.0 03/18/2014 [facility] CHEM PANEL Globulin 3.9 2.0 - 4.0 03/18/2014 [facility] CHEM PANEL Total Protein 7.3 6.4 - 8.4 03/18/2014 [facility] CHEM PANEL Albumin Lvl 3.4 3.5 - 5.0 03/18/2014 [facility] HEMATOLOGY Plt Morph Morena l (03/18/14 3:34 AM) 03/18/2014 [facility] HEMATOLOGY RBC Morph Morena l (03/18/14 3:34 AM) 03/18/2014 [facility] LIPIDS VLDL 28 03/17/2014 [facility] LIPIDS LDL (Calculated) 110 <=99 mg/dL 03/17/2014 [facility] LIPIDS HDL 29 >=61 mg/dL 03/17/2014 [facility] LIPIDS CHD Risk 5.76 3.90 - 5.80 03/17/2014 [facility] LIPIDS Chol 167 <=199 mg/dL 03/17/2014 [facility] LIPIDS Trig 138 <=149 mg/dL 03/17/2014 [facility] SPECIAL CHEMISTRY Hgb A1C 8.4 <=5.6 % 03/17/2014 [facility] CARDIAC ENZYMES CK MB 1.5 0.5 - 3.6 03/17/2014 [facility] CARDIAC ENZYMES Troponin-I <0.02 0.00 - 0.40 03/17/2014 [facility] BLOOD BANK RESULTS RBC product Product available 2 (03/16/14 6:55 PM) 03/16/2014 <sup>2</sup>Result Comment: 03/16/2014 19:08 [id number]
CALLED TO GINA 03/16/2014 19:08 [facility] ANEMIA STUDY Folate Lvl 11.1 >=3.0 ng/mL 03/16/2014 [facility] ANEMIA STUDY % Satur Fe 2 12 - 57 03/16/2014 [facility] ANEMIA STUDY UIBC 484 110 - 370 03/16/2014 [facility] ANEMIA STUDY Iron 11 30 - 160 03/16/2014 [facility] ANEMIA STUDY TIBC 495 228 - 428 03/16/2014 [facility] ANEMIA STUDY Vitamin B12 Lvl 892 254 - 1320 03/16/2014 [facility] ANEMIA STUDY Ferritin Lvl 4 5 - 204 03/16/2014 [facility] BLOOD BANK RESULTS Antibody Scrn Negative (03/16/14 2:45 PM) 03/16/2014 [facility] BLOOD BANK RESULTS ABO/Rh O NEG 03/16/2014 [facility] CARDIAC ENZYMES CK MB 1.9 0.5 - 3.6 03/16/2014 [facility] CARDIAC ENZYMES Troponin-I <0.02 0.00 - 0.40 03/16/2014 [facility] HEMATOLOGY Retic Auto 2.8 0.5 - 1.5 03/16/2014 [facility] THYROID PANEL TSH 14.700 0.360 - 3.740 03/16/2014 [facility] THYROID PANEL T4 Free 1.14 0.76 - 1.46 03/16/2014 [facility] BLOOD BANK RESULTS RBC product Product available 3 (03/16/14 2:24 PM) 03/16/2014 <sup>3</sup>Result Comment: 03/16/2014 17:03 [id number]
called to Gina 03/16/2014 17:03 GW [facility] CHEMISTRY CHD Risk 3.90 3.90 - 5.80 09/27/2012 Normal [facility] CHEMISTRY Trig 117 0 - 200 09/27/2012 Normal [facility] CHEMISTRY Chol 195 120 - 200 09/27/2012 Normal [facility] CHEMISTRY HDL 50 >=35 09/27/2012 Normal [facility] CHEMISTRY LDL 122 0 - 129 09/27/2012 Normal [facility] CHEMISTRY Creatinine Lvl 1.1 0.5 - 1.4 09/27/2012 Normal [facility] CHEMISTRY CO2 26 24 - 32 09/27/2012 Normal [facility] CHEMISTRY Glucose Lvl 145 70 - 99 09/27/2012 [facility] <sup>5</sup>Interpretive Data: Adult ref erence range values reflect the clinical guidelines
of the [place] [employer]. [facility] CHEMISTRY BUN 14 7 - 22 09/27/2012 Normal [facility] CHEMISTRY Calcium Lvl 8.2 8.5 - 10.5 09/27/2012 LOW [facility] CHEMISTRY AGAP 12.8 10.0 - 20.0 09/27/2012 Normal [facility] CHEMISTRY eGFR 66 09/27/2012 NA <sup>2</sup>Result Comment: The eGFR is calculated using the CKD-EPI formula. In most young, healthy individuals the eGFR will be >90 mL/min/1.73m2. The eGFR declines with age. An eGFR of 60-89 may be normal in some populations, particularly the elderly, for whom the CKD-EPI formula has not been extensively validated. Use of the eGFR is not recommended in the following populations:& lt;br/>
Individuals with unstable creatinine concentrations, including patients and those with serious co-morbid conditions.

Patients with extremes in muscle mass or diet.

The data above are obtained from the National Kidney Disease Education Program (NKDEP) which additionally recommends that when the eGFR is used in patients with extremes of body mass index for purposes of drug dosing, the eGFR should be multiplied by the estimated BMI. [facility] CHEMISTRY Potassium Lvl 3.8 3.5 - 5.1 09/27/2012 Normal [facility] CHEMISTRY Sodium Lvl 136 135 - 145 09/27/2012 Normal [facility] CHEMISTRY Chloride Lvl 101 95 - 109 09/27/2012 Normal [facility] CHEMISTRY Troponin-I <0.02 0.00 - 0.40 09/27/2012 Normal [facility] CHEMISTRY Total CK 784 12 - 191 09/27/2012 [facility] CHEMISTRY CK MB 4.7 0.5 - 3.6 09/27/2012 [facility] CHEMISTRY CK MB Index 0.6 0.0 - 2.5 09/27/2012 Normal [facility] HEMATOLOGY Segs-Bands # 7.8 1.5 - 8.1 09/27/2012 Normal [facility] HEMATOLOGY Lymphocytes # 3.4 1.0 - 5.5 09/27/2012 Normal [facility] HEMATOLOGY Eosinophils 5.2 0.0 - 4.0 09/27/2012 [facility] HEMATOLOGY Monocytes 6.6 2.0 - 12.0 09/27/2012 Normal [facility] HEMATOLOGY Basophils # 0.1 0.0 - 0.2 09/27/2012 Normal [facility] HEMATOLOGY Monocytes # 0.9 0.0 - 0.8 09/27/2012 [facility] HEMATOLOGY Eosinophils # 0.7 0.0 - 0.5 09/27/2012 [facility] HEMATOLOGY Basophils 0.5 0.0 - 1.0 09/27/2012 Normal [facility] HEMATOLOGY Lymphocytes 26.7 20.0 - 40.0 09/27/2012 Normal [facility] HEMATOLOGY Segs 61.0 45.0 - 75.0 09/27/2012 Normal [facility] HEMATOLOGY MCH 27.2 27.0 - 31.0 09/27/2012 Normal [facility] HEMATOLOGY RBC 4.53 4.20 - 5.40 09/27/2012 Normal [facility] HEMATOLOGY MCV 85.3 81.0 - 99.0 09/27/2012 Normal [facility] HEMATOLOGY Hgb 12.3 12.0 - 16.0 09/27/2012 [facility] HEMATOLOGY Hct 38.6 36.0 - 48.0 09/27/2012 Normal [facility] HEMATOLOGY WBC 12.8 3.7 - 10.4 09/27/2012 [facility] HEMATOLOGY MCHC 31.9 32.0 - 36.0 09/27/2012 LOW [facility] HEMATOLOGY RDW 15.6 11.5 - 14.5 09/27/2012 [facility] HEMATOLOGY Platelet 535 133 - 450 09/27/2012 [facility] HEMATOLOGY MPV 7.9 7.4 - 10.4 09/27/2012 Normal [facility] HEMATOLOGY RBC 4.57 4.20 - 5.40 09/26/2012 Normal [facility] HEMATOLOGY Hgb 12.7 12.0 - 16.0 09/26/2012 Normal [facility] HEMATOLOGY WBC 15.7 3.7 - 10.4 09/26/2012 [facility] HEMATOLOGY Platelet 552 133 - 450 09/26/2012 [facility] HEMATOLOGY MPV 8.0 7.4 - 10.4 09/26/2012 Normal [facility] HEMATOLOGY RDW 16.0 11.5 - 14.5 09/26/2012 [facility] HEMATOLOGY MCH 27.7 27.0 - 31.0 09/26/2012 Normal [facility] HEMATOLOGY MCV 85.5 81.0 - 99.0 09/26/2012 Normal [facility] HEMATOLOGY MCHC 32.4 32.0 - 36.0 09/26/2012 Normal [facility] HEMATOLOGY Hct 39.1 36.0 - 48.0 09/26/2012 Normal [facility] HEMATOLOGY Polychrom Sligh t (09/26/2012 14:22:00) None S een 09/26/2012 Normal [facility] HEMATOLOGY Target Cell Sligh t *ABN* (09/26/2012 14:22:00) None S een 09/26/2012 ABN [facility] HEMATOLOGY Hypochrom Sligh t (09/26/2012 14:22:00) None S een 09/26/2012 Normal [facility] HEMATOLOGY Monocytes # 0.5 0.0 - 0.8 09/26/2012 Normal [facility] HEMATOLOGY Lymphocytes 8.8 20.0 - 40.0 09/26/2012 LOW [facility] HEMATOLOGY Monocytes 3.5 2.0 - 12.0 09/26/2012 Normal [facility] HEMATOLOGY Eosinophils 3.5 0.0 - 4.0 09/26/2012 Normal [facility] HEMATOLOGY Segs-Bands # 13.0 1.5 - 8.1 09/26/2012 HI [facility] HEMATOLOGY Basophils 1.3 0.0 - 1.0 09/26/2012 HI [facility] HEMATOLOGY Lymphocytes # 1.4 1.0 - 5.5 09/26/2012 Normal [facility] HEMATOLOGY Eosinophils # 0.5 0.0 - 0.5 09/26/2012 Normal [facility] HEMATOLOGY Basophils # 0.2 0.0 - 0.2 09/26/2012 Normal [facility] HEMATOLOGY Plt Morph Morena l (09/26/2012 14:22:00) 09/26/2012 Normal [facility] HEMATOLOGY Segs 82.9 45.0 - 75.0 09/26/2012 [facility] CHEMISTRY Phosphorus 4.2 2.5 - 4.5 09/26/2012 Normal [facility] Magnesium Lvl 1.5 1.8 - 2.4 09/26/2012 LOW [facility] CHEMISTRY eGFR 59 09/26/2012 NA <sup>3</sup>Result Comment: The eGFR is calculated using the CKD-EPI formula. In most young, healthy individuals the eGFR will be >90 mL/min/1.73m2. The eGFR declines with age. An eGFR of 60-89 may be normal in some populations, particularly the elderly, for whom the CKD-EPI formula has not been extensively validated. Use of the eGFR is not recommended in the following populations:& lt;br/>
Individuals with unstable creatinine concentrations, including patients and those with serious co-morbid conditions.

Patients with extremes in muscle mass or diet.

The data above are obtained from the National Kidney Disease Education Program (NKDEP) which additionally recommends that when the eGFR is used in patients with extremes of body mass index for purposes of drug dosing, the eGFR should be multiplied by the estimated BMI. [facility] CHEMISTRY Calcium Lvl 9.1 8.5 - 10.5 09/26/2012 Normal [facility] CHEMISTRY CO2 28 24 - 32 09/26/2012 Normal [facility] CHEMISTRY Creatinine Lvl 1.2 0.5 - 1.4 09/26/2012 Normal [facility] CHEMISTRY BUN 10 7 - 22 09/26/2012 Normal [facility] CHEMISTRY AGAP 14.1 10.0 - 20.0 09/26/2012 Normal [facility] CHEMISTRY Glucose Lvl 141 70 - 99 09/26/2012 [facility] <sup>6</sup>Interpretive Data: Adult ref erence range values reflect the clinical guidelines
of the [place] [employer]. [facility] CHEMISTRY Sodium Lvl 136 135 - 145 09/26/2012 Normal [facility] CHEMISTRY Potassium Lvl 4.1 3.5 - 5.1 09/26/2012 Normal [facility] CHEMISTRY Chloride Lvl 98 95 - 109 09/26/2012 Normal [facility] CHEMISTRY Total CK 669 12 - 191 09/26/2012 [facility] CHEMISTRY Troponin-I <0.02 0.00 - 0.40 09/26/2012 Normal [facility] CHEMISTRY CK MB Index 0.8 0.0 - 2.5 09/26/2012 Normal [facility] CHEMISTRY CK MB 5.1 0.5 - 3.6 09/26/2012 [facility] CHEMISTRY CK MB Index 0.9 0.0 - 2.5 09/26/2012 Normal [facility] CHEMISTRY CK MB 5.1 0.5 - 3.6 09/26/2012 HI [facility] CHEMISTRY Total CK 596 12 - 191 09/26/2012 [facility] CHEMISTRY Troponin-I <0.02 0.00 - 0.40 09/26/2012 Normal [facility] BLOOD BANK RESULTS Antibody Scrn Negative (09/25/2012 21:48:00) 09/26/2012 Normal [facility] BLOOD BANK RESULTS ABO/Rh O NEG 09/26/2012 Unknown [facility] BLOOD BANK RESULTS RBC product Product available 1 (09/25/2012 21:15:00) 09/26/2012 Normal <sup>1</sup>Result Comment: 09/26/2012 00:53 [id number]
CALLED TO GAING AT 09/26/2012 0:53 BY JV [facility] CHEMISTRY Hgb A1C 7.2 09/26/2012 NA <sup>8</sup>Interpretive Data: HbA1C% eAG(mg/dL) Interpretation
6.0 126 Very good control
6.5 140 Very good control
7.0 154 Good Control
7.5 169 Good Control
8.0 183 Marginal Control, take action to lower
8.5 197 Marginal Control, take action to lower
9.0 212 Poor Control, take action to lower
9.5 226 Poor Con trol, take action to lower
10.0 240 Poor Control, take action to lower [facility] CHEMISTRY TSH 46.900 0.360 - 3.740 09/26/2012 [facility] CHEMISTRY T4 Free 0.53 0.76 - 1.46 09/26/2012 LOW [facility] CHEMISTRY T3 Free 1.45 2.18 - 3.98 09/26/2012 LOW [facility] CHEMISTRY LDL 132 0 - 129 09/26/2012 [facility] CHEMISTRY Chol 206 120 - 200 09/26/2012 [facility] CHEMISTRY HDL 45 >=35 09/26/2012 Normal [facility] CHEMISTRY Trig 143 0 - 200 09/26/2012 Normal [facility] CHEMISTRY CHD Risk 4.58 3.90 - 5.80 09/26/2012 Normal [facility] CHEMISTRY eGFR 74 09/26/2012 NA <sup>4</sup>Result Comment: The eGFR is calculated using the CKD-EPI formula. In most young, healthy individuals the eGFR will be >90 mL/min/1.73m2. The eGFR declines with age. An eGFR of 60-89 may be normal in some populations, particularly the elderly, for whom the CKD-EPI formula has not been extensively validated. Use of the eGFR is not recommended in the following populations:& lt;br/>
Individuals with unstable creatinine concentrations, including patients and those with serious co-morbid conditions.

Patients with extremes in muscle mass or diet.

The data above are obtained from the National Kidney Disease Education Program (NKDEP) which additionally recommends that when the eGFR is used in patients with extremes of body mass index for purposes of drug dosing, the eGFR should be multiplied by the estimated BMI. [facility] CHEMISTRY Bili Total 0.2 0.2 - 1.3 09/26/2012 Normal [facility] CHEMISTRY AST 63 0 - 37 09/26/2012 [facility] CHEMISTRY ALT 60 0 - 65 09/26/2012 Normal [facility] CHEMISTRY Alk Phos 132 39 - 136 09/26/2012 Normal [facility] CHEMISTRY Calcium Lvl 8.5 8.5 - 10.5 09/26/2012 Normal [facility] CHEMISTRY Total Protein 8.0 6.4 - 8.4 09/26/2012 Normal [facility] CHEMISTRY BUN 12 7 - 22 09/26/2012 Normal [facility] CHEMISTRY Albumin Lvl 3.9 3.5 - 5.0 09/26/2012 Normal [facility] CHEMISTRY Creatinine Lvl 1.0 0.5 - 1.4 09/26/2012 Normal [facility] CHEMISTRY CO2 31 24 - 32 09/26/2012 Normal [facility] CHEMISTRY Glucose Lvl 128 70 - 99 09/26/2012 HI <sup>7</sup>Interpretive Data: Adult ref erence range values reflect the clinical guidelines
of the [place] [employer]. [facility] CHEMISTRY Chloride Lvl 102 95 - 109 09/26/2012 Normal [facility] CHEMISTRY Potassium Lvl 3.9 3.5 - 5.1 09/26/2012 Normal [facility] CHEMISTRY Sodium Lvl 140 135 - 145 09/26/2012 Normal [facility] CHEMISTRY B/C Ratio 12 6 - 25 09/26/2012 Normal [facility] CHEMISTRY Globulin 4.1 2.0 - 4.0 09/26/2012 HI [facility] CHEMISTRY A/G Ratio 1.0 0.7 - 1.6 09/26/2012 Normal [facility] CHEMISTRY AGAP 10.9 10.0 - 20.0 09/26/2012 Normal [facility] HEMATOLOGY Stomatocyte Sligh t *ABN* (09/25/2012 20:05:00) None S een 09/26/2012 ABN [facility] HEMATOLOGY Polychrom Sligh t (09/25/2012 20:05:00) None S een 09/26/2012 Normal [facility] HEMATOLOGY Target Cell Sligh t *ABN* (09/25/2012 20:05:00) None S een 09/26/2012 ABN [facility] HEMATOLOGY Tear Cell Sligh t *ABN* (09/25/2012 20:05:00) None S een 09/26/2012 ABN [facility] HEMATOLOGY Elliptocyte Sligh t *ABN* (09/25/2012 20:05:00) None S een 09/26/2012 ABN [facility] HEMATOLOGY Basophils # 0.1 0.0 - 0.2 09/26/2012 Normal [facility] HEMATOLOGY Eosinophils # 0.4 0.0 - 0.5 09/26/2012 Normal [facility] HEMATOLOGY Hypochrom Sligh t (09/25/2012 20:05:00) None S een 09/26/2012 Normal [facility] HEMATOLOGY Segs-Bands # 8.9 1.5 - 8.1 09/26/2012 [facility] HEMATOLOGY Basophils 0.8 0.0 - 1.0 09/26/2012 Normal [facility] HEMATOLOGY Monocytes # 0.8 0.0 - 0.8 09/26/2012 Normal [facility] HEMATOLOGY Lymphocytes # 3.5 1.0 - 5.5 09/26/2012 Normal [facility] HEMATOLOGY Segs 64.6 45.0 - 75.0 09/26/2012 Normal [facility] HEMATOLOGY Eosinophils 3.0 0.0 - 4.0 09/26/2012 Normal [facility] HEMATOLOGY Monocytes 5.8 2.0 - 12.0 09/26/2012 Normal [facility] HEMATOLOGY Lymphocytes 25.8 20.0 - 40.0 09/26/2012 Normal [facility] HEMATOLOGY MCHC 30.9 32.0 - 36.0 09/26/2012 LOW [facility] HEMATOLOGY RDW 16.2 11.5 - 14.5 09/26/2012 [facility] HEMATOLOGY Platelet 644 133 - 450 09/26/2012 [facility] HEMATOLOGY WBC 13.8 3.7 - 10.4 09/26/2012 [facility] HEMATOLOGY RBC 3.36 4.20 - 5.40 09/26/2012 LOW [facility] HEMATOLOGY MPV 7.7 7.4 - 10.4 09/26/2012 Normal [facility] HEMATOLOGY Hgb 8.7 12.0 - 16.0 09/26/2012 LOW [facility] HEMATOLOGY Hct 28.2 36.0 - 48.0 09/26/2012 [facility] HEMATOLOGY MCV 83.9 81.0 - 99.0 09/26/2012 Normal [facility] HEMATOLOGY MCH 26.0 27.0 - 31.0 09/26/2012 [facility] CHEMISTRY Ferritin Lvl 4 5 - 204 09/26/2012 [facility] CHEMISTRY Folate Lvl 7.4 >=3.0 09/26/2012 Normal [facility] CHEMISTRY Vitamin B12 Lvl 414 254 - 1320 09/26/2012 [facility] CHEMISTRY % Satur Fe 3 12 - 57 09/26/2012 [facility] CHEMISTRY UIBC 593 110 - 370 09/26/2012 [facility] CHEMISTRY TIBC 609 228 - 428 09/26/2012 [facility] CHEMISTRY Iron 16 30 - 160 09/26/2012 [facility] CHEMISTRY S Preg Negati ve *NA* (09/25/2012 20:04:00) Negati ve 09/26/2012 NA [facility] HEMATOLOGY Retic Auto 2.0 0.5 - 1.5 09/26/2012 [facility] URINALYSIS UA Urobilinogen 0.1 - 1.0 09/22/2012 NA [facility] URINALYSIS UA Color Ltyellow 09/22/2012 NA [facility] URINALYSIS UA Ketones Negat juan mg/dL *NA* (09/22/2012 16:00:00) Negati ve 09/22/2012 [facility] URINALYSIS UA Bili Negat juan *NA* (09/22/2012 16:00:00) Negati ve 09/22/2012 [facility] URINALYSIS UA Glucose Negat juan mg/dL *NA* (09/22/2012 16:00:00) Negati ve 09/22/2012 [facility] URINALYSIS UA Nitrite Negat juan (09/22/2012 16:00:00) Negati ve 09/22/2012 Normal [facility] URINALYSIS UA RBC 2 0 - 2 09/22/2012 Normal [facility] URINALYSIS UA Bacteria Occas ional /HPF *NA* (09/22/2012 16:00:00) None S een 09/22/2012 [facility] URINALYSIS UA Blood Negat juan (09/22/2012 16:00:00) Negati ve 09/22/2012 Normal [facility] URINALYSIS UA Sq Epi Many /LPF *ABN* (09/22/2012 16:00:00) Few 09/22/2012 ABN [facility] URINALYSIS UA Leuk Est Large *ABN* (09/22/2012 16:00:00) Negati ve 09/22/2012 ABN [facility] URINALYSIS UA WBC 10 0 - 5 09/22/2012 HI [facility] URINALYSIS UA Spec Grav 1.020 <=1.030 09/22/2012 Normal [facility] URINALYSIS UA Turbidity Sligh t *ABN* (09/22/2012 16:00:00) Clear 09/22/2012 ABN [facility] URINALYSIS UA Protein Negat juan mg/dL (09/22/2012 16:00:00) Negati ve 09/22/2012 Normal [facility] URINALYSIS UA pH 7.0 5.0 - 8.0 09/22/2012 Normal [facility] Microbiology Culture: Urine 09/22/2012 [facility] CHEMISTRY Total CK 1042 12 - 191 09/22/2012 HI [facility] CHEMISTRY Potassium Lvl 3.9 3.5 - 5.1 09/22/2012 Normal [facility] CHEMISTRY Chloride Lvl 102 95 - 109 09/22/2012 Normal [facility] CHEMISTRY Sodium Lvl 137 135 - 145 09/22/2012 Normal [facility] CHEMISTRY eGFR 66 09/22/2012 NA <sup>1</sup>Result Comment: The eGFR is calculated using the CKD-EPI formula. In most young, healthy individuals the eGFR will be >90 mL/min/1.73m2. The eGFR declines with age. An eGFR of 60-89 may be normal in some populations, particularly the elderly, for whom the CKD-EPI formula has not been extensively validated. Use of the eGFR is not recommended in the following populations:& lt;br/>
Individuals with unstable creatinine concentrations, including patients and those with serious co-morbid conditions.

Patients with extremes in muscle mass or diet.

The data above are obtained from the National Kidney Disease Education Program (NKDEP) which additionally recommends that when the eGFR is used in patients with extremes of body mass index for purposes of drug dosing, the eGFR should be multiplied by the estimated BMI. [facility] CHEMISTRY B/C Ratio 17 6 - 25 09/22/2012 Normal [facility] CHEMISTRY AGAP 10.9 10.0 - 20.0 09/22/2012 Normal [facility] CHEMISTRY AST 72 0 - 37 09/22/2012 HI [facility] CHEMISTRY A/G Ratio 1.1 0.7 - 1.6 09/22/2012 Normal [facility] CHEMISTRY Bili Total 0.3 0.2 - 1.3 09/22/2012 Normal [facility] CHEMISTRY Alk Phos 133 39 - 136 09/22/2012 Normal [facility] CHEMISTRY Globulin 3.8 2.0 - 4.0 09/22/2012 Normal [facility] CHEMISTRY CO2 28 24 - 32 09/22/2012 Normal [facility] CHEMISTRY Calcium Lvl 8.0 8.5 - 10.5 09/22/2012 LOW [facility] CHEMISTRY ALT 60 0 - 65 09/22/2012 Normal [facility] CHEMISTRY Albumin Lvl 4.0 3.5 - 5.0 09/22/2012 Normal [facility] CHEMISTRY Total Protein 7.8 6.4 - 8.4 09/22/2012 Normal [facility] CHEMISTRY Creatinine Lvl 1.1 0.5 - 1.4 09/22/2012 Normal [facility] CHEMISTRY Glucose Lvl 108 70 - 99 09/22/2012 [place] <sup>2</sup>Interpretive Data: Adult ref erence range values reflect the clinical guidelines
of the [place] [employer]. [facility] CHEMISTRY BUN 19 7 - 22 09/22/2012 Normal [facility] CHEMISTRY CK MB 6.7 0.5 - 3.6 09/22/2012 [facility] CHEMISTRY CK MB Index 0.6 0.0 - 2.5 09/22/2012 Normal [facility] HEMATOLOGY MCH 26.2 27.0 - 31.0 09/22/2012 LOW [facility] HEMATOLOGY MCV 84.4 81.0 - 99.0 09/22/2012 Normal [facility] HEMATOLOGY RDW 16.0 11.5 - 14.5 09/22/2012 [facility] HEMATOLOGY MCHC 31.1 32.0 - 36.0 09/22/2012 LOW [facility] HEMATOLOGY Hct 27.4 36.0 - 48.0 09/22/2012 LOW [facility] HEMATOLOGY RBC 3.25 4.20 - 5.40 09/22/2012 LOW [facility] HEMATOLOGY WBC 10.2 3.7 - 10.4 09/22/2012 Normal [facility] HEMATOLOGY Hgb 8.5 12.0 - 16.0 09/22/2012 LOW [facility] HEMATOLOGY MPV 7.8 7.4 - 10.4 09/22/2012 Normal [facility] HEMATOLOGY Platelet 666 133 - 450 09/22/2012 [facility] HEMATOLOGY Segs 58.3 45.0 - 75.0 09/22/2012 Normal [facility] HEMATOLOGY Lymphocytes 30.0 20.0 - 40.0 09/22/2012 Normal [facility] HEMATOLOGY Monocytes 6.5 2.0 - 12.0 09/22/2012 Normal [facility] HEMATOLOGY Eosinophils 4.3 0.0 - 4.0 09/22/2012 [facility] HEMATOLOGY Basophils 0.9 0.0 - 1.0 09/22/2012 Normal [facility] HEMATOLOGY Eosinophils # 0.4 0.0 - 0.5 09/22/2012 Normal [facility] HEMATOLOGY Basophils # 0.1 0.0 - 0.2 09/22/2012 Normal [facility] HEMATOLOGY Monocytes # 0.7 0.0 - 0.8 09/22/2012 Normal [facility] HEMATOLOGY Segs-Bands # 6.0 1.5 - 8.1 09/22/2012 Normal [facility] HEMATOLOGY Lymphocytes # 3.1 1.0 - 5.5 09/22/2012 Normal [facility] Pathology Reports No Data Provided for This Section Diagnostic Reports Report Value Date Source Chest 1view DX PROCEDURE INFOR MATION: Exam: XR Chest, 1 View Exam date and time: 06/04/2019 10:55 AM Age: 43 years old Clinical indication: Shortness of breath and other: Hypertension; Additional info: /shortness of breath, hypertension. PT sent to ED for abnormal ekg TECHNIQUE: Imaging protocol: XR of the chest Views: 1 view. COMPARISON: CHEST 1VIEW DX 06/25/2018 10:33 AM FINDINGS: Tubes, catheters and devices: Stable right chest wall port. Lungs: No focal consolidation. Pleural space: No pleural effusion or pneumothorax. Heart/Mediastinum: The cardiac silhouette is within normal limits. Stable mediastinal clips. Bones/joints: Intact sternotomy wires. IMPRESSION: No acute cardiopulmonary findings. Randy Mccallum MD On 06/04/2019 11:24:09; [id number] 06/04/2019 [facility] Chest 1view DX Chest 1view DX CLINICAL HISTORY: - cp COMPARISON: 03/12/2018 FINDINGS: Limited AP portable study. SUPPORT DEVICES: Stable position of right subclavian Port-A-Cath LUNGS: Lungs are reasonably well inflated. No consolidation or any significant effusion. No pneumothorax is evident. CARDIOVASCULAR: Cardiac silhouette size is within normal limits. Poststernotomy changes. No pulmonary edema. MEDIASTINUM/ZAIDA: Trachea is midline. No contour abnormality is noted. BONE AND SOFT TISSUES: No acute abnormality is noted. Multiple EKG leads and other wires project over the patient's chest. IMPRESSION: No acute abnormality is noted in the chest. SL: [id number] 06/25/2018 [facility] Abdomen AP DX Patient Name: JOSUE TOURE : 1975; Age: 42 years y/o Female MR: [id number] Study: Abdomen AP DX dated 03/13/2018. Clinical Indication: - looking for mirena IUD; Comparison: None An intrauterine device is not identified. Nonpathologic bowel gas pattern without evidence of bowel obstruction. Tiny calcification left pelvis likely phlebolith. SL: [id number] 03/13/2018 [facility] Brain wo contrast CT EXAM: CT BRAIN WITHOUT CONTRAST DATE: 03/12/2018 1:18 PM CDT INDICATION: - syncope. ADDITIONAL INFORMATION: . COMPARISON: CT head of 09/14/2015. TECHNIQUE: Routine axial CT images of the brain were obtained. IV contrast: None. CT imaging performed at this location utilizes radiation dose optimization techniques which include one or more of the following: -Automated exposure control -Adjustment of the mA and/or kV accordin g to patient size -Use of iterative reconstruction Shogether ue CT Radiation Dose DLP 982.82 mGy-cm FINDINGS: Non-contrast images of the head demonstrate no edema, hemorrhage, mass lesion or other acute intracranial abnormality. Khan-white matter distinction is preserved. The ventricles are stable. The basal cisterns and sulci are normal in size. Partial empty sella is present which is a normal variant. Mild mucosal thickening of the ethmoid air cells. Partial opacification of the mastoid air cells, worse within the right mastoid air cells. IMPRESSION: 1. No definite acute infarct or intracra nial hemorrhage detected. If there is further concern for intracranial pathology or acute stroke, MRI of the brain may be performed for complete assessment. SL: [id number] 03/12/2018 [facility] Pelvis Transvaginal US Pelvis Transvaginal US CLINICAL HX: - abnormal vaginal bleeding; COMPARISON: None TECHNIQUE: Multiple static endovaginal images of the pelvis are submitted for review. Endovaginal images were performed in an attempt to better visualize the endometrial stripe and adnexal regions. FINDINGS: UTERUS: Limited evaluation due to the elongated shape of uterus. The uterus measures approximately and 10 cm in the sagittal length. No gross mass is visualized in the uterus. The endometrial stripe measures 14 mm. OVARIES: The right ovary measures 3.6 x 2.3 x 2.5 cm in size. 2 cm cyst is visualized in the right ovary. Nonvisualization of left ovary. No free fluid is present in the cul-de-sac. IMPRESSION: Limited evaluation of uterus. No obvious mass. Thickened endometrial stripe. 2 cm cyst is visualized in the right ova ry. Nonvisualization of left ovary. No gross adnexal mass is evident but given the clinical history of vaginal bleeding, ectopic should be clinically excluded. Correlation with beta-hCG is recommended. Note: Case discussed with the ER physician, Dr. Martinez, on 03/12/2018 1420 hours. SL: [id number] 03/12/2018 [facility] 1view DX Clinical Indica tion: - cp. Comparison: 03/06/2017. FINDINGS: AP chest radiograph was obtained. MEDIASTINUM: The cardiac silhouette is mildly enlarged. The aorta is unremarkable. Prior coronary artery bypass graft. Right subclavian port terminates in the SVC. LUNGS: The lungs are clear. No pleural effusion. No pneumothorax. OTHER: No acute osseous abnormalities. IMPRESSION: Cardiomegaly, without focal infiltrate identified. SL: [id number] 03/12/2018 [facility] 1view DX Patient Name: Nishi TOURE : 1975; Age: 41 years Female MR: [id number] Study: Chest 1view DX Order Time: 03/06/2017 12:31 PM CDT CLINICAL INDICATION: - cp COMPARISON: Chest radiograph on 09/19/2016 FINDINGS: Lines: Stable position of the right chest port. Lungs: The lungs are grossly clear. Mediastinum: The cardiac silhouette is within normal limits of size. Midline trachea. Bones and soft tissues: No acute abnormalities. IMPRESSION: No acute cardiopulmonary abnormalities. SL: [id number] 03/06/2017 [facility] Pulmonary Embolism CTA Patient Name: CECILIO TOURE : 1975; Age: 40 years Female MR: [id number] Study: Chest Pulmonary Embolism CTA 09/19/2016 11:49 AM CDT Clinical Indication: Shortness of Breath, r/o PE, pt states she's been having chest pressure and sob today. she had a heart attack 4 weeks ago. - 75cc omni 350ML 60cc saline CT DLP 834.77mGy-cm CJ. . COMPARISON: 09/25/2012. Chest x-ray 09/19/2016. TECHNIQUE: Sequential trans-axial images were obtained thru the chest and upper abdomen after administration of iodinated contrast. Coronal and sagittal reconstructions were obtained. 3D post-processing reconstruction post IV contrast volume rendering images are submitted. FINDINGS: LUNG PARENCHYMA AND PLEURA: Mild congestive change. Left lower lobe pulmonary nodule series 4 image 32 measures 6-7 mm. There are no pleural effusions. There is no pneumothorax. AIRWAY: The central airway is normal. MEDIASTINUM: No significant mediastinal lymphadenopathy. Right-sided Port-A-Cath. HEART: Cardiomegaly. There is no pericardial effusion. VASCULAR STRUCTURES: The main, right and left pulmonary arteries are normal. The great vessels are normal. The thoracic aorta is free of aneurysm or dissection. The superior vena cava is normal.The pulmonary vasculature is normal. OSSEOUS STRUCTURES: There are no definite significant osseous abnormalities seen. VISUALIZED UPPER ABDOMEN: Small hiatal hernia. Cholelithiasis. Mild left adrenal hyperplasia. IMPRESSION: 1. No pulmonary embolus. 2. Cardiomegaly with mild congestive ch carol. 3. Left lower lobe pulmonary nodule, pl ease see follow-up recommendations. 4. Cholelithiasis. 5. Mild left adrenal hyperplasia. Nodule Follow Up for Low\\S\\ Follow Up for High Size* Risk Patients Risk Patients <4mm No follow up needed 12 mo; if unchanged, no f/u 4-6mm 12 mo; if unchanged, no f/u 6-12 mo., then 18 to 24 mo 6-8mm 6-12 mo., then 18-24 mo. 3-6 mo., then 18 to 24 mo >8mm 3,9,24 mo. consider 3,9,[address]/PET/Bx CT/PET/Bx *Newly detected indeterminate nodule in persons > 35 years. Pts <35: consider single low-dose f/u CT in 6-12 months \\S\\Low risk = minimal or absent history of smoking and of other known risk factors Guidelines for Management of Small Pulmonary Nodules Detected on CT: A Statement from the Fleischner Society. Radiol 2005: 237; 395-400 SL: [id number] 09/19/2016 [facility] 1view DX EXAM: Chest rad iograph HISTORY: Chest pain shortness of breath COMPARISON: 02/14/2016 TECHNIQUE: Frontal view of the chest FINDINGS/IMPRESSION: No appreciable pneumonia, edema or pleural effusion. Heart size normal. Stable right subclavian Port-A-Cath. IMPRESSION: No acute finding. SL: [id number] 09/19/2016 [facility] 1view DX Study: Chest 1v iew DX Clinical Indication: Chest pain Comparison: Chest x-ray from January 12, 2016 FINDINGS: The cardiac silhouette is normal in size. The lungs are clear and without consolidation or congestion. No pleural effusion or pneumothorax is seen. The osseous structures are unremarkable. Right-sided Port-A-Cath is stable. IMPRESSION: No acute cardiopulmonary disease. SL: [id number] 02/14/2016 [facility] Chest 2 views DX Two-view ches t Patient Name: CECILIO TOURE : 1975; Age: 40 years Female MR: [id number] Study: Chest 2 views DX Order Time: 01/12/2016 1:59 PM CDT Clinical Indication: Cough and fever. COMPARISON: September 2015. 07/28/2006. FINDINGS: Views: 2 LUNGS: The port tip is in the region of the superior vena cava right atrial junction. There is normal lung volume. There are no suspicious interstitial/airspace opacities. There are no pleural effusions. There is no pneumothorax. The pulmonary vasculature is normal. MEDIASTINUM: The cardiac silhouette is normal. The trachea is midline. BONES: There are no clinically significant osseous abnormalities noted. IMPRESSION: No radiographic evidence of acute pulmonary disease. SL: [id number] 01/12/2016 [facility] Chest 1view DX Patient Name: Nishi TOURE : 1975; Age: 39 years Female MR: [id number] Study: Chest 1view DX Order Time: 09/14/2015 3:01 PM CDT Clinical Indication: Chest pain. left arm numbness, blurry vision COMPARISON: 07/28/2006. FINDINGS: Views: 1 LUNGS: There is normal lung volume. There are no suspicious interstitial/airspace opacities. There are no pleural effusions. There is no pneumothorax. The pulmonary vasculature is normal. Port tip is in the superior vena cava right atrial junction. MEDIASTINUM: The cardiac silhouette is normal. The trachea is midline. BONES: There are no clinically significant osseous abnormalities noted. IMPRESSION: No radiographic evidence of acute cardiopulmonary disease. SL: [id number] 09/14/2015 [facility] Brain wo contrast CT Patient N tre: CECILIO TOURE : 1975; Age: 39 years Female MR: [id number] Study: Brain wo contrast CT 09/14/2015 3:00 PM CDT Clinical Indication: Syncope. Patient c/o blurred vision, dizziness and left arm numbness x 2 days COMPARISON: None TECHNIQUE: CT images were obtained from the foramen magnum to the vertex without the use of intravenous contrast on a multidetector CT. Coronal and sagittal reconstructions were obtained. FINDINGS: BRAIN PARENCHYMA: There are normal collins-white interfaces, sulci and gyri. There is no mass effect or midline shift. There is no extra-axial fluid collection, intraventricular or intraparenchymal hemorrhage. The sella and pineal regions are normal. The skull base, cerebellum and brainstem are normal. VENTRICLES: The ventricles are normal in size and configuration. The basilar cisterns are normal. ORBITS, MASTOIDS AND PARANASAL SINUSES: The visualized orbits are normal. The paranasal sinuses are normal. Small degree of mastoid sinus fluid.. SKULL: There are no osseous abnormalities. If there is further concern for intracranial pathology or acute stroke, MRI of the brain may be performed for complete assessment. IMPRESSION: 1. Normal noncontrast head CT. No mass, hemorrhage or subacute stroke. 2. Small degree of mastoid sinus fluid. SL: [id number] 09/14/2015 [facility] Liver w Liver vessels Doppler US EXAM: LIVER US EXAM: LIVER DOPPLER DATE: 03/19/2014 at 142. INDICATION: Acute abdominal pain. ADDITIONAL INFORMATION: None. COMPARISON: None. TECHNIQUE: Multiplanar grayscale, color Doppler and spectral Doppler ultrasound images of the abdomen and abdominal vasculature were obtained. FINDINGS: Liver demonstrates diffusely increased echogenicity without masses. Right hepatic lobe measures 19.4 cm at the midclavicular line. The portal vein is approximately 10 mm in diameter. Normal hepatopetal flow is demonstrated in the main portal vein as well as in the right and left branches. Pulsatile, hepatopetal flow is demonstrated in the hepatic artery. Abdominal aorta is of normal caliber. Hepatofugal flow is present in the right, middle, and left hepatic veins as well as the IVC. Phasicity is present in the right and left hepatic veins. Loss of phasicity in the middle hepatic vein may be artifactual in nature. The spleen is not enlarged. The splenic vein is patent. Splenic arterial waveform is normal. Gallbladder normal without gallstones. Gallbladder wall thickness is within normal limits. Visualized portions of the intrahepatic biliary tree are of normal caliber. Common duct is 2.2 mm. Pancreas is unremarkable where visualized. No free fluid identified. IMPRESSION: 1. Hepatomegaly with hepatic steatosis. 2. Liver Doppler is within normal limits . SL: 12 03/19/2014 [facility] Consultation Notes No Data Provided for This Section Discharge Summaries No Data Provided for This Section History and Physicals No Data Provided for This Section Vital Signs Vital Sign Value Date Comments Source Temperature Oral (F) 97.9 F 06/05/2019 [facility] Heart Rate 54 06/05/2019 [facility] Rate 14 06/05/2019 [facility] Systolic (mm Hg) 104 06/05/2019 [facility] Diastolic (mm Hg) 65 06/05/2019 [facility] Temperature Oral (F) 97.7 F 06/05/2019 [facility] Heart Rate 79 06/05/2019 [facility] Rate 16 06/05/2019 [facility] Systolic (mm Hg) 128 06/05/2019 [facility] Diastolic (mm Hg) 74 06/05/2019 [facility] Temperature Oral (F) 97.6 F 06/05/2019 [facility] Heart Rate 84 06/05/2019 [facility] Respitory Rate 17 06/05/2019 [facility] Systolic (mm Hg) 115 06/05/2019 [facility] Diastolic (mm Hg) 76 06/05/2019 [facility] Height 162.56 cm 06/04/2019 [facility] Weight 100 06/04/2019 [facility] BMI Calculated 37.84 06/04/2019 [facility] Weight 100 06/04/2019 [facility] Systolic (mm Hg) 105 06/25/2018 [facility] Diastolic (mm Hg) 69 06/25/2018 [facility] Respitory Rate 17 06/25/2018 [facility] Systolic (mm Hg) 118 06/25/2018 [facility] Diastolic (mm Hg) 70 06/25/2018 [facility] Respitory Rate 20 06/25/2018 [facility] Heart Rate 88 06/25/2018 [facility] Height 162.56 cm 06/25/2018 [facility] Respitory Rate 18 06/25/2018 [facility] Heart Rate 99 06/25/2018 [facility] Temperature Oral (F) 98.6 F 06/25/2018 [facility] BMI Calculated 35.95 06/25/2018 [facility] Weight 95 0 06/25/2018 [facility] Systolic (mm Hg) 148 06/25/2018 [facility] Diastolic (mm Hg) 99 06/25/2018 [facility] Respitory Rate 18 03/13/2018 [facility] Systolic (mm Hg) 141 03/13/2018 [facility] Diastolic (mm Hg) 85 03/13/2018 [facility] Heart Rate 87 03/13/2018 [facility] Temperature Oral (F) 98 F 03/13/2018 [facility] Systolic (mm Hg) 99 03/13/2018 [facility] Diastolic (mm Hg) 63 03/13/2018 [facility] Respitory Rate 17 03/13/2018 [facility] Temperature Oral (F) 98 F 03/13/2018 [facility] Heart Rate 81 03/13/2018 [facility] Heart Rate 80 03/13/2018 [facility] Systolic (mm Hg) 98 03/13/2018 [facility] Diastolic (mm Hg) 63 03/13/2018 [facility] Respitory Rate 17 03/13/2018 [facility] Temperature Oral (F) 97.8 F 03/13/2018 [facility] Height 162.56 cm 03/12/2018 [facility] BMI Calculated 35.26 03/12/2018 [facility] Weight 93.182 03/12/2018 [facility] Rate 27 03/06/2017 [facility] Systolic (mm Hg) 131 03/06/2017 [facility] Diastolic (mm Hg) 105 03/06/2017 [facility] Rate 20 03/06/2017 [facility] Rate 22 03/06/2017 [facility] Systolic (mm Hg) 117 03/06/2017 [facility] Diastolic (mm Hg) 68 03/06/2017 [facility] Systolic (mm Hg) 108 03/06/2017 [facility] Diastolic (mm Hg) 69 03/06/2017 [facility] Height 160.02 cm 03/06/2017 [facility] BMI Calculated 35.33 03/06/2017 [facility] Temperature Oral (F) 98.9 F 03/06/2017 [facility] Weight 90.455 03/06/2017 [facility] Heart Rate 116 03/06/2017 [facility] Systolic (mm Hg) 89 09/21/2016 [facility] Diastolic (mm Hg) 60 09/21/2016 [facility] Heart Rate 85 09/21/2016 [facility] Respitory Rate 18 09/21/2016 [facility] Temperature Oral (F) 98.1 F 09/21/2016 [facility] Systolic (mm Hg) 93 09/21/2016 [facility] Diastolic (mm Hg) 62 09/21/2016 [facility] Rate 18 09/21/2016 [facility] Heart Rate 78 09/21/2016 [facility] Temperature Oral (F) 97.8 F 09/21/2016 [facility] Systolic (mm Hg) 110 09/21/2016 [facility] Diastolic (mm Hg) 58 09/21/2016 [facility] Heart Rate 99 09/21/2016 [facility] Respitory Rate 18 09/21/2016 [facility] Temperature Oral (F) 98.5 F 09/21/2016 [facility] Weight 97.273 09/19/2016 [facility] BMI Calculated 36.81 09/19/2016 [facility] Height 162.56 cm 09/19/2016 [facility] Systolic (mm Hg) 108 01/13/2016 [facility] Diastolic (mm Hg) 70 01/13/2016 [facility] Heart Rate 90 01/13/2016 [facility] Respitory Rate 19 01/13/2016 [facility] Temperature Oral (F) 97.8 F 01/13/2016 [facility] Rate 20 01/13/2016 [facility] Heart Rate 87 01/13/2016 [facility] Systolic (mm Hg) 105 01/13/2016 [facility] Diastolic (mm Hg) 52 01/13/2016 [facility] Temperature Oral (F) 97.8 F 01/13/2016 [facility] Heart Rate 92 01/12/2016 [facility] Respitory Rate 20 01/12/2016 [facility] Systolic (mm Hg) 112 01/12/2016 [facility] Diastolic (mm Hg) 75 01/12/2016 [facility] BMI Calculated 39.56 01/12/2016 [facility] Weight 104.545 01/12/2016 [facility] Height 162.56 cm 01/12/2016 [facility] Temperature Oral (F) 98.4 F 01/12/2016 [facility] Systolic (mm Hg) 115 09/16/2015 [facility] Diastolic (mm Hg) 75 09/16/2015 [facility] Heart Rate 84 09/16/2015 [facility] Temperature Oral (F) 97.7 F 09/16/2015 [facility] Systolic (mm Hg) 135 09/16/2015 [facility] Diastolic (mm Hg) 87 09/16/2015 [facility] Heart Rate 85 09/16/2015 [facility] Temperature Oral (F) 97.3 F 09/16/2015 [facility] Temperature Oral (F) 98.1 F 09/16/2015 [facility] Respitory Rate 15 09/16/2015 [facility] Heart Rate 90 09/16/2015 [facility] Systolic (mm Hg) 134 09/16/2015 [facility] Diastolic (mm Hg) 77 09/16/2015 [facility] Respitory Rate 16 09/16/2015 [facility] Respitory Rate 16 09/15/2015 [facility] Weight 115 09/15/2015 [facility] BMI Calculated 43.52 09/15/2015 [facility] Height 162.56 cm 09/15/2015 [facility] Weight 104.545 09/14/2015 [facility] BMI Calculated 39.56 09/14/2015 [facility] Height 162.56 cm 09/14/2015 [facility] Systolic (mm Hg) 130 03/20/2014 [facility] Diastolic (mm Hg) 80 03/20/2014 [facility] Temperature Oral (F) 98.2 F 03/20/2014 [facility] Respitory Rate 18 03/20/2014 [facility] Heart Rate 96 03/20/2014 [facility] Temperature Oral (F) 98.2 F 03/20/2014 [facility] Heart Rate 89 03/20/2014 [facility] Systolic (mm Hg) 126 03/20/2014 [facility] Diastolic (mm Hg) 83 03/20/2014 [facility] Respitory Rate 18 03/20/2014 [facility] Diastolic (mm Hg) 67 03/20/2014 [facility] Temperature Oral (F) 98.2 F 03/20/2014 [facility] Respitory Rate 18 03/20/2014 [facility] Heart Rate 96 03/20/2014 [facility] Systolic (mm Hg) 106 03/20/2014 [facility] Height 162.56 cm 03/16/2014 [facility] BMI Calculated 41.11 03/16/2014 [facility] Weight 108.636 03/16/2014 [facility] Respitory Rate 20 09/27/2012 [facility] Diastolic (mm Hg) 84 09/27/2012 [facility] Systolic (mm Hg) 131 09/27/2012 [facility] Temperature Oral (F) 98.1 F 09/27/2012 [facility] Heart Rate 76 09/27/2012 [facility] Diastolic (mm Hg) 90 09/27/2012 [facility] Heart Rate 77 09/27/2012 [facility] Respitory Rate 20 09/27/2012 [facility] Systolic (mm Hg) 138 09/27/2012 [facility] Temperature Oral (F) 98.3 F 09/27/2012 [facility] Temperature Oral (F) 99.1 F 09/27/2012 [facility] Systolic (mm Hg) 101 09/27/2012 [facility] Heart Rate 69 09/27/2012 [facility] Respitory Rate 20 09/27/2012 [facility] Diastolic (mm Hg) 62 09/27/2012 [facility] Weight 107.727 09/26/2012 [facility] Height 162.56 cm 09/26/2012 [facility] Height 162.56 cm 09/22/2012 [facility] Weight 108.182 09/22/2012 [facility] Encounters Location Location Details Encounter Type Encounter Number Reason For Visit Attending Provider ADM Date DC Date Status Source [facility] Emergency [id number] DASIA FRAZIER 09/22/2012 09/22/2012 Discharged [facility] Inpatient [id number] ANEMIA, CHEST ELLIE N DARIN DIANA 09/25/2012 09/27/2012 Active [facility] Inpatient [id number] Jeremy Alondra 03/16/2014 03/20/2014 [facility] Outpatient [id number] Non Physician 08/29/2014 08/29/2014 [facility] Inpatient [id number] Capo Hortaavi 09/14/2015 09/16/2015 [facility] Emergency [id number] Alvino Gomezrenny 01/12/2016 01/13/2016 [facility] Inpatient [id number] Meredith Mora 201609/21/2016 [facility] Emergency [id number] Madelyn Millan 03/06/2017 03/06/2017 [facility] Observation [id number] Adnan Alden 03/12/2018 03/13/2018 [facility] Emergency [id number] Darin Hoover 06/25/2018 06/25/2018 [facility] Observation [id number] Adnan Alden 06/04/2019 06/05/2019 [facility] Outpatient [id number] ANEMIA KRLEIGHAALI DENNIS Cancel [facility] Procedures Procedure Code Date Perfomer Comments Source Total thyroidectomy [id number] 04/18/2013 [facility] Biopsy of lymph node<sup>1</sup> 12269402 x2 [facility] CABG x 3 - Coronary artery bypass grafts x 3 [id number] [facility] section [id number] [facility] Tubal ligation [id number] [facility] section [id number] [facility] Tubal ligation [id number] [facility] st Assessment and Plan Assessment and Plan Date Source Extracted from:Title: Clinical Document Author: Pablo Padilla MD Date: 06/04/19 Date of admission: 06/04/2017. Visible admission 1. Symptomatic anemia, atypical chest p ain. History of present illness Ms Toure is a 43-year-old woman with a known history of iron deficiency anemia, coronary artery disease status post CABG, diabetes mellitus, morbid obesity who comes in at the request of her primary care physician for evaluation of ongoing shortness of breath and chest pain. Patient reports that the symptoms have been going on for many weeks. She was instructed to come to the ER 48 hours ago but the patient went to a local ER and at the wait was too long so she went home. She continued to feel unwell therefore she comes in now. At this time reports having no chest pain but reports exertional shortness of breath. She reports having had uterine ablation for menorrhagia approximately a year ago. She was taking iron supplements but to have stopped taking those. Denies having any pleuritic type discomfort. Denies having any syncopal episode recently. Denies having any headache or vision changes. Denies any pain with urination. Denies any abdominal pain or diarrhea. Denies any recent fever or chills. Denies any new ongoing vaginal bleeding since her uterine ablation about a year ago. Past medical history 1. Coronary artery disease status post CABG 2. Iron deficient anemia, menorrhagia s tatus post uterine ablation 3. Hypothyroidism 4. Hyperlipidemia 5. Diabetes mellitus. Medications At Home: Please see admission medicine reconciliation form. Past surgical history 1. CABG 2. Uterine ablation. Social history: Denies any tobacco alcohol use. Allergies: Vancomycin. Review of system: As per HPI. Family history: Hypertension diabetes mellitus Physical examination Temperature 97.8, blood pressure 112/67, pulse of 88, respiratory 20, 97% on room air. Gen: AAOX3, NAD Neuro: Moving all extremities well CV: RRR, S1 and S2 Lung: CTA-B Abdomen: Non-distended, non-tender, no rebound or gaurding, bowel sounds are present. : no suprapubic region tenderness. No CVA region tenderness. EXT: no peripheral edema. Skin: no rashes or other skin color changes. Diagnostic studies Chest x-ray: Reviewed by me showing no acute pulmonary abnormalities. Laboratory data Sodium of 137, GFR 68, LFTs are normal, cardiac enzymes are negative, white blood count of 7, hemoglobin of 7.5 with MCV of 62, platelets of 467 Assessment and plan Patient is a 43-year-old woman with iron deficiency anemia secondary to menorrhagia, status post uterine ablation, now with severe iron deficiency due to lack of oral and IV iron supplementation coming in with atypical chest pain. Acute issues *Anemia due to iron deficiency *Atypical chest pain *Severe anemia *Coronary artery disease status post CABG *Diabetes mellitus *Hypertension *Hyperlipidemia *Hypothyroidism *Anxiety/depression. Plan We will give 2 units of PRBC blood now. Obtain iron panel. IV iron now, hematology consultation. Serial troponins and echocardiogram. Chest pain atypical likely related to symptomatic anemia. Home medications have been reviewed and reconciled. Vitals reviewed in CDU overnight. DVT prophylaxis: SCDs Disposition: Likely tomorrow. 06/05/2019 [facility] Extracted from:Title: Progress Note [employer]* Author: Nara Acharya MD Date: 03/13/18 Subjective Vaginal bleeding is going away Review of Systems Constitutional: Negative. Respiratory: Negative, No cough. Gastrointestinal: No nausea, No vomiting, No diarrhea. Genitourinary: Negative. Gynecologic: vaginal spotting. Neurologic: Alert and oriented X4. Psychiatric: Negative. All other systems are negative Health Status Allergies: Allergic Reactions (All) Severity Not Documented Vancomycin- No reactions were documented. Problem list: All Problems Anemia / SNOMED CT 411208015 / Confirmed Fever / SNOMED CT 9270157234 / Confirmed Shortness of breath / SNOMED CT 938582414 / Confirmed Objective Meds Scheduled Meds (12):aspirin (aspirin 81 mg tablet, enteric coated), atorvastatin (Lipitor), glipiZIDE (Glucotrol), levothyroxine, levothyroxine, medroxyPROGESTERone (Provera), metFORMIN (Glucophage), metoprolol (metoprolol tartrate), pregabalin (Lyrica), sertraline, sodium chloride (Saline Flush 0.9%), zolpidem Unscheduled Meds: None PRN Meds (13):Dextrose 50% in Water IV (Dextrose 50% Syringe), Dextrose 50% in Water IV (Dextrose 50% Syringe), acetaminophen-hydrocodone ([place] 10/325 oral tablet), glucagon, hydrOXYzine (hydrOXYzine hydrochloride [...] Signs (last 24 hrs) Last Charted Temp Oral 98 DegF (MAR 13:) Heart Rate Peripheral 81 bpm (MAR 13:) Resp Rate 17 BRMIN (MAR 13:) SBP 99 mmHg (MAR 13) DBP 63 mmHg (MAR 13) SpO2 97 % (MAR 13) Weight 93.182 kg (MAR 12 17:11) Height 162.56 cm (MAR 12 17:11) BMI 35.26 (MAR 12 17:11) General: Alert and oriented, No acute distress. Respiratory: Respirations are non-labored. Gastrointestinal: Soft, Non-tender. Neurologic: Alert, Oriented. Psychiatric: Cooperative, Appropriate mood and affect. Review / Management Results review: Labs (Last four charted values) WBC 9.4 (MAR 13) 8.3 (MAR 12) Hgb L 9.8 (MAR 13) L 8.2 (MAR 12) Hct L 29.2 (MAR 13) L 25.1 (MAR 12) Plt 288 (MAR 13) H 488 (MAR 12) Na 139 (MAR 13) 138 (MAR 12) K 3.9 (MAR 13) 4.2 (MAR 12) CO2 L 23 (MAR 13) 26 (MAR 12) Cl 104 (MAR 10) 102 (MAR 12) Cr 0.88 (MAR 13) 0.87 (MAR 12) BUN 9 (MAR 13) 9 (MAR 12) Glucose Random H 191 (MAR 13) H 181 (MAR 12) Ca L 7.7 (MAR 13) L 7.6 (MAR 12) PT 14.5 (MAR 12) INR 1.13 (MAR 12) PTT 30.7 (MAR 12) Troponin <0.02 (MAR 13) <0.02 (MAR 12) <0.02 (MAR 12) Total CK 169 (MAR 12) . Impression and Plan Diagnosis: Syncope (MNZ28-TU R55, Working, Medical), Excessive vaginal bleeding (MYU35-MY N92.0, Working, Medical), Anemia (NIW96-IW D64.9, Working, Medical), Acute chest pain (NKQ38-NS R07.9, Working, Medical). Patient found stable and [...] daily for 14 days. She refers her SUPERVISOR TELEVISION CHASSIS REPAIR has already worked her up for AUB. Oriented the patient that she needs to follow up outpatient with her [employer]. Addendum by Nara Acharya MD on 03/13/2018 12:11 Abdominopelvic x-ray does not show IUD. IUD must have fallen out at some point. Oriented patient on radiology results and that she needs to follow up with her SUPERVISOR TELEVISION CHASSIS REPAIR for treatment of her AUB. 03/13/2018 [facility] Extracted from:Title: Clinical Document Author: Shirley Lara MD Date: 09/21/16 Progress Daily [facility] Completed: Sep, 10:43 by Shirley Lara MD RM: [phone] - [address]W, SE CECILIO ARNOLD 40y (: 1975) F Attending: Meredith Mora MD Service: Cardiology Reason for Admission: CHEST PAIN Working DRG: Chest pain Code status: None Specified=FULL CODE Current diet: Isolation: None Documented Allergies: vancomycin SUBJECTIVE Looks better. 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 [place] still necessary (Yes/No): Line still necessary (Yes/No): 24hr Labs 09/21 0659 Glucose POC 221 H 09/21 0622 WBC 11.0 H RBC 3.83 L Hgb 8.2 L Hct 27.0 L MCV 70.6 L MCH 21.5 L MCHC 30.5 L RDW 18.0 H Platelet 530 H MPV 8.3 Segs 79.6 H Monocytes 4.2 Lymphocytes 11.3 L Eosinophils 3.8 Basophils 1.1 H Segs-Bands # 8.8 H Lymphocytes # 1.2 Monocytes # 0.5 Eosinophils # 0.4 Basophils # 0.1 Plt Morph Normal Microcyte 2+ Hypochrom 1+ Polychrom Slight Target Cell Slight 09/20 2127 Glucose POC 355 H 09/20 1549 Glucose POC 237 H 09/20 1112 Glucose POC 240 H 09/20 1009 Ferritin Lvl 6 Folate Lvl 8.8 Iron 33 % Satur Fe 7 L TIBC 487 H UIBC 454 H Vitamin B12 Lvl 452 Vitals Tmp(F) Pulse BP RR SpO2 FIO2 09/21 07:00 97.8 78 93/62 18 97 --- 09/21 06:00 ---- 99 110/58 - - --- --- 09/21 04:00 98.5 91 100/63 1 8 99 --- 09/21 00:00 98.1 90 104/67 1 8 95 --- 09/20 20:00 98.4 96 110/73 1 8 98 --- 24 Hr Tmax: 98.7F (37.06c) at 09/20 11:2 0 Vital Signs are the last 5 in the past 48 hours. Date Wt(kg) Wt(lb) Ht(cm) Ht(in) Method 09/19 (initial) 97.27 214.00 Estimated 09/19 162.56 64.00 Stated I&O Record In Out Bal 09/21 24hr Tot 100 0 100 09/20 24hr Tot 265 0 265 Medications (25) Active Scheduled Meds (8): 09/19/16 atorvastatin 80 mg PO Bedtime 09/19/16 ferrous sulfate 325 mg PO TID-M eals 09/21/16 glipiZIDE (Glucotrol) 10 mg PO BID-Before Meals 09/20/16 levothyroxine 300 microgram PO Q630AM 09/20/16 liothyronine 5 microgram PO Q63 0AM 09/19/16 metoprolol (metoprolol tartrate ) 25 mg PO Q8Hnow 09/20/16 prasugrel (Effient) 10 mg PO Da narinder 09/19/16 pregabalin (Lyrica) 25 mg PO Be dtime Unscheduled Meds: None PRN Meds (16): 09/19/16 Dextrose 50% in Water IV (Dextr ose 50% Syringe) 12.5 gm IVP PRN 09/19/16 Dextrose 50% in Water IV (Dextr ose 50% Syringe) 25 gm IVP PRN 09/20/16 Dextrose 50% in Water IV (Dextr ose 50% Syringe) 12.5 gm IVP PRN 09/20/16 Dextrose 50% in Water IV (Dextr ose 50% Syringe) 25 gm IVP PRN 09/19/16 docusate (Colace 100 mg oral ca psule) 100 mg PO BID 09/19/16 glucagon 1 mg IM PRN 09/20/16 glucagon 1 mg IM PRN 09/19/16 insulin aspart 2 unit SUB-Q TID -Before Meals 09/19/16 insulin aspart 4 unit SUB-Q TID -Before Meals 09/19/16 insulin aspart 6 unit SUB-Q TID -Before Meals 09/19/16 insulin aspart 8 unit SUB-Q TID -Before Meals 09/19/16 insulin aspart 10 unit SUB-Q TI D-Before Meals 09/20/16 insulin aspart 1 unit SUB-Q Bed time 09/20/16 insulin aspart 2 unit SUB-Q Bed time 09/20/16 insulin aspart 3 unit SUB-Q Bed time 09/20/16 insulin aspart 4 unit SUB-Q Bed time One Time Meds (1): 09/20/16 (Completed) iron sucrose + sod ium chloride 0.9% INJ 250 mL (Venofer + sodium chloride 0.9% INJ 250 mL) 300 mg IVPB ONCE 132.5 ml/hr Continuous Infusions: None 09/21/2016 [facility] Extracted from:Title: Clinical Document Author: Kareen Brandt MD Date: 03/20/14 Progress Note - Daily Gastroenterology [facility] SUBJECTIVE: feels much better, no complaints, no bleeding, no ruq pain ROS: No headache, visual changes, eye pain No chest pain or palpitations No cough or shortness of breath No rash or lesions No joint pain or swelling No bruising or adenopathy No hematuria or dysuria No epistaxis, ear pain No hematemesis or rectal bleeding, no trouble swallowing No suicidality or hallucination OBJECTIVE: Vital Signs (last 24 hrs) Last Charted Minimum Maximum Temp 98.2 (MAR 20 15:35) 97.8 (MAR 19 16:00) 98.5 (MAR 19 19:47) Heart Rate 96 (MAR 20 15:35) 85 (MAR 19 16:00) 96 (MAR 19 19:47) Resp Rate 18 (MAR 20 15:35) 16 (MAR 19 16:00) 18 (MAR 20 07:34) SBP 130 (MAR 20:35) 106 (MAR 20 07:34) H 145 (MAR 19 16:00) DBP 80 (MAR 20 15:35) 67 (MAR 20 07:34) 85 (MAR 19 16:00) Input/Output Record In Out Bal 03/20 24hr Tot 0 0 0 03/19 24hr Tot 500 0 500 Scheduled Meds (2):enoxaparin (Lovenox), levothyroxine Unscheduled Meds: None PRN Meds (23):Dextrose 50% in Water IV (Dextrose 50% Syringe), Dextrose 50% in Water IV (Dextrose 50% Syringe), acetaminophen-hydrocodone ([place] 5/325 oral tablet), acetaminophen (Tylenol), atropine, flumazenil, flumazenil, glucagon, insulin aspart, insulin aspart, insulin aspart, insulin aspart, insulin aspart, insulin aspart, insulin aspart, insulin aspart, insulin aspart, morphine Sulfate, naloxone, nitroglycerin (Nitrostat 0.4 mg sublingual tablet), nitroglycerin (nitroglycerin 0.4 mg sublingual tablet), ondansetron (Zofran), zolpidem (Ambien) One Time Meds: None Continuous Infusions: None Labs (Last four charted values) WBC H 14.6 (MAR 17) H 15.2 (OCT 17) H 16.4 (OCT 16) H 14.5 (OCT 15) Hgb L 11.2 (OCT 17) L 11.1 (OCT 17) L 10.6 (OCT 16) L 11.2 (OCT 15) Hct 37.4 (OCT 17) 36.6 (OCT 17) L 35.0 (OCT 16) L 35.5 (OCT 15) Plt H 583 (OCT 17) H 596 (OCT 17) H 625 (OCT 16) H 653 (OCT 15) Na 138 (OCT 17) 137 (OCT 16) 136 (OCT 15) 136 (OCT 14) K 3.8 (OCT 17) 3.6 (OCT 16) 4.6 (OCT 15) 4.6 (OCT 14) CO2 25 (OCT 17) 27 (OCT 16) L 23 (OCT 15) 27 (OCT 14) Cl 102 (OCT 17) 100 (OCT 16) 100 (OCT 15) 102 (OCT 14) Cr 0.9 (OCT 17) 0.9 (OCT 16) 0.9 (OCT 15) 0.9 (OCT 14) BUN 15 (OCT 17) 10 (OCT 16) 9 (OCT 15) 7 (OCT 14) Glucose Random H 209 (OCT 17) H 164 (OCT 16) H 310 (OCT 15) H 175 (OCT 14) Ca L 8.2 (OCT 17) 8.9 (OCT 16) 8.5 (OCT 15) L 8.2 (OCT 14) Troponin <0.02 (MAR 13) <0.02 (MAR 13) CK MB 1.5 (MAR 13) 1.9 (MAR 13) Physical Examination: General: nad, pleasant HEENT: perrl Pulm:cta CVS:s2s1 Abd:soft, nontender, nondistended, +bs Ext/Skin: intact Neuro/Psych: normal ASSESSMENT: - iron def anemia - h/o lymphoma - elevated LFT - likely from fatty liver PLAN: - okay for d/c from GI perspective - will follow with me in clinic for bx r esults - if unrevealing and anemia persists courtney l pursue outpatient capsule endoscopy Thank you for allowing me to participate in the care of your patient. I will follow along with you during their hospitalization. Please do not hesitate to contact me with any questions or concerns. 03/20/2014 [facility] Plan of Care No Data Provided for This Section Social History Social History Date Source Social History TypeResponse Alcohol Current, Type Beer, Wine. Frequency: 1-2 times per month. Substance Abuse Use: None. Smoking Status Never smoker; Exposure to Tobacco Smoke None; Cigarette Smoking Last 365 Days No; Reg Smoking Cessation Counseling No entered on: 06/04/19 03/16/2014 [facility] Family History No Data Provided for This Section Advance Directives No Data Provided for This Section Functional Status No Data Provided for This Section
--- OUTSIDE RECORDS SUMMARY | 2020-01-09 19:52 | XMS REPORT | Summary of Care ---
Author Author [facility] Organization [facility] Address Unknown Phone Unavailable Encounter ALREY Montemayor(ELMER) [id number] Date(s): 01/12/16 - 01/12/16 [facility] [id number] [place] [address]- Discharge Diagnosis: UTI (urinary tract infection) Discharge Diagnosis: Microcytic anemia Discharge Diagnosis: Hyperglycemia Discharge Diagnosis: Menometrorrhagia Discharge Diagnosis: Hepatitis Discharge Diagnosis: Hyponatremia Discharge Diagnosis: Dehydration Discharge Diagnosis: Hypothyroid Discharge Disposition: Home or Self Care Attending Physician: Alvino Murguia MD Vital Signs 1 2 3 Most recent to oldest [Reference Range]: 162.56 cm (01/12/16 12:48 PM) Height 97.8 DegF (01/12/16 8:22 PM) 97.8 DegF (01/12/16 7:02 PM) 98.4 DegF (01/12/16 12:48 PM) Temperature Oral [96.4-99.1 DegF] 108/70 mmHg (01/12/16 8:22 PM) 105/52 mmHg (01/12/16 7:02 PM) 112/75 mmHg (01/12/16 5:28 PM) Blood Pressure [90-140/60-90 mmHg] 19 BRMIN (01/12/16 8:22 PM) 20 BRMIN (01/12/16 7:02 PM) 20 BRMIN (01/12/16 5:28 PM) Respiratory Rate [14-20 BRMIN] 90 bpm (01/12/16 8:22 PM) 87 bpm (01/12/16 7:02 PM) 92 bpm (01/12/16 5:28 PM) Peripheral Pulse Rate [60-100 bpm] 104.545 kg (01/12/16 12:48 PM) Weight 39.56 m2 (01/12/16 12:48 PM) Body Mass Index Problem List Condition Effective Dates Status Health Status Informan t [M]Non-Hodgkin's Active lymphoma(Confirmed) Anemia(Confirmed) Active Diabetes(Confirmed) Resolved Fever(Confirmed) Active Hodgkins Resolved lymphoma(Confirmed) Hypertension(Confirm Resolved ed) Neuropathy(Confirmed Resolved )1 Shortness of Active breath(Confirmed) Thyroidectomy(Confir Resolved med) 1affects legs Allergies, Adverse Reactions, Alerts Substance Reaction Severity Status vancomycin Active Medications Bactrim DS 800 mg- 160 mg oral tablet 1 tab, PO, BID, X 10 day, # 20 tab, 0 Refill(s) Start Date: 01/12/16 Stop Date: 01/22/16 Status: Ordered Bentyl 20 mg, 1 tab, Route: PO, Drug form: TAB, ONCE, Dosing Weight 104.545, kg, Start date: 01/12/16 15:50:00 CDT, Stop date: 01/12/16 15:50:00 CDT Notes: (Same as: Bentyl) Start Date: 01/12/16 Stop Date: 01/12/16 Status: Completed Colace 100 mg oral capsule 100 mg = 1 cap, PO, BID, PRN Constipation, # 60 cap, 0 Refill(s) Start Date: 01/12/16 Status: Ordered ferrous sulfate 325 mg oral enteric coated tablet 325 mg = 1 tab, PO, TID, Start with 1 tab daily x 3 days, advance as tolerate, u se stool softners and laxatives as needed for constipation, # 90 tab, 3 Refill(s ) Start Date: 01/12/16 Status: Ordered levothyroxine 300 mcg (0.3 mg) oral tablet 300 microgram = 1 tab, PO, Daily, # 30 tab, 1 Refill(s) Start Date: 01/12/16 Status: Ordered NS (Bolus) IV 1,000 mL, 1,000 ml/hr, Infuse Over: 1 hr, Route: IV, 1,000, Drug form: INJ, ONCE , Priority: STAT, Dosing Weight 104.545 kg, Start date: 01/12/16 15:30:00 CDT, D uration: 1 doses or times, Stop date: 01/12/16 15:30:00 CDT Start Date: 01/12/16 Stop Date: 01/12/16 Status: Completed Pepcid 20 mg, 2 mL, Route: IV, Drug form: INJ, ONCE, Dosing Weight 104.545, kg, Start d ate: 01/12/16 15:50:00 CDT, Stop date: 01/12/16 15:50:00 CDT Notes: (Same as: Pepcid)Can be dilute in 5-10cc NS IVP: Slow IV push over at le ast 2 minutes. Start Date: 01/12/16 Stop Date: 01/12/16 Status: Completed Rocephin + sodium chloride 0.9% INJ 100 mL 1 gm, Route: IVPB, ONCE, Dosing Weight 104.545, kg, Priority: STAT, Start date: 01/12/16 18:22:00 CDT, Stop date: 01/12/16 18:22:00 CDT Notes: (Same As: Rocephin).Use with 100 mL NS and infuse over 30 min MEDICA TION WASTE Product Size: 1000 mgProduct Wasted: ___ mg Start Date: 01/12/16 Stop Date: 01/12/16 Status: Completed sodium chloride 0.9% INJ 250 mL 250 mL, Rate: bilingual call center representative for use with blood product administration, Dosing Weight 1 04.545, kg, Route: IV, Total Volume: 250, Start Date: 01/12/16 15:30:00 CDT, Dur ation: 1 day, Stop date: 01/13/16 15:29:00 CDT, Replace Every: 24 hr Start Date: 01/12/16 Stop Date: 01/12/16 Status: Discontinued Results BLOOD BANK RESULTS Most recent to 1 oldest [Reference Range]: ABO/Rh O NEG *Unknown* (01/12/16 4:32 PM) Antibody Scrn Negative (01/12/16 4:32 PM) ELECTROLYTES Most recent to 1 oldest [Reference Range]: Sodium Lvl [135-145 132 mEq/L mEq/L] *LOW* (01/12/16 4:32 PM) Potassium Lvl 3.7 mEq/L [3.5-5.1 mEq/L] (01/12/16 4:32 PM) Chloride Lvl [95-109 98 mEq/L mEq/L] (01/12/16 4:32 PM) CO2 [24-32 mEq/L] 24 mEq/L (01/12/16 4:32 PM) AGAP [10.0-20.0 13.7 mEq/L mEq/L] (01/12/16 4:32 PM) CHEM PANEL Most recent to 1 oldest [Reference Range]: Creatinine Lvl 1.04 mg/dL [0.50-1.40 mg/dL] (01/12/16 4:32 PM) eGFR 68 mL/min/1.73m2 1 *NA* (01/12/16 4:32 PM) BUN [7-22 mg/dL] 10 mg/dL (01/12/16 4:32 PM) B/C Ratio [6-25] 10 (01/12/16 4:32 PM) Glucose Lvl [70-99 221 mg/dL mg/dL] *HI* (01/12/16 4:32 PM) Total Protein 7.5 g/dL [6.4-8.4 g/dL] (01/12/16 4:32 PM) Albumin Lvl [3.5-5.0 3.5 g/dL g/dL] (01/12/16 4:32 PM) Globulin [2.7-4.2 4.0 g/dL g/dL] (01/12/16 4:32 PM) A/G Ratio [0.7-1.6] 0.9 (01/12/16 4:32 PM) Calcium Lvl 7.7 mg/dL [8.5-10.5 mg/dL] *LOW* (01/12/16 4:32 PM) Magnesium Lvl 1.8 mg/dL [1.8-2.4 mg/dL] (01/12/16 4:32 PM) ALT [0-65 unit/L] 191 unit/L *HI* (01/12/16 4:32 PM) AST [0-37 unit/L] 407 unit/L *HI* (01/12/16 4:32 PM) Alk Phos [39-136 130 unit/L unit/L] (01/12/16 4:32 PM) Bili Total [0.2-1.3 0.3 mg/dL mg/dL] (01/12/16 4:32 PM) Lipase Lvl [73-393 147 unit/L unit/L] (01/12/16 4:32 PM) 1Result Comment: The eGFR is calculated [...] 1 oldest [Reference Range]: Total CK [12-191 352 unit/L unit/L] *HI* (01/12/16 4:32 PM) CK MB [0.5-3.6 2.3 ng/mL ng/mL] (01/12/16 4:32 PM) CK MB Index 0.7 [0.0-2.5] (01/12/16 4:32 PM) Troponin-I <0.02 ng/mL [0.00-0.40 ng/mL] (01/12/16 4:32 PM) URINE CHEM Most recent to 1 oldest [Reference Range]: U Preg [Negative] Negative (01/12/16 4:32 PM) URINE AND STOOL Most recent to 1 oldest [Reference Range]: UA Turbidity [Clear] Marked *ABN* (01/12/16 4:32 PM) UA Color [Yellow] Yellow *NA* (01/12/16 4:32 PM) UA pH [5.0-8.0] 6.0 (01/12/16 4:32 PM) UA Spec Grav 1.020 [<=1.030] (01/12/16 4:32 PM) UA Glucose [Negative Negative mg/dL mg/dL] *NA* (01/12/16 4:32 PM) UA Blood [Negative] Small *ABN* (01/12/16 4:32 PM) UA Ketones [Negative Negative mg/dL mg/dL] *NA* (01/12/16 4:32 PM) UA Protein [Negative 100 mg/dL mg/dL] *ABN* (01/12/16 4:32 PM) UA Urobilinogen <=1.0 mg/dL [0.1-1.0 mg/dL] *NA* (01/12/16 4:32 PM) UA Bili [Negative] Negative *NA* (01/12/16 4:32 PM) UA Leuk Est Moderate [Negative] *ABN* (01/12/16 4:32 PM) UA Nitrite Positive [Negative] *ABN* (01/12/16 4:32 PM) UA WBC [0-5 /HPF] 14 /HPF *HI* (01/12/16 4:32 PM) UA RBC [0-2 /HPF] 5 /HPF *HI* (01/12/16 4:32 PM) UA Bacteria [None Many /HPF Seen /HPF] *ABN* (01/12/16 4:32 PM) UA Sq Epi [Few /LPF] Many /LPF *ABN* (01/12/16 4:32 PM) UA Mucus [None Seen Few /LPF /LPF] *NA* (01/12/16 4:32 PM) UA Manson Yeast [None Occasional /HPF Seen /HPF] *ABN* (01/12/16 4:32 PM) HEMATOLOGY Most recent to 1 oldest [Reference Range]: WBC [3.7-10.4 K/CMM] 6.4 K/CMM (01/12/16 4:32 PM) RBC [4.20-5.40 3.65 M/CMM M/CMM] *LOW* (01/12/16 4:32 PM) Hgb [12.0-16.0 g/dL] 8.4 g/dL *LOW* (01/12/16 4:32 PM) Hct [36.0-48.0 %] 26.9 % *LOW* (01/12/16 4:32 PM) MCV [80.0-98.0 fL] 73.8 fL *LOW* (01/12/16 4:32 PM) MCH [27.0-31.0 pg] 23.0 pg *LOW* (01/12/16 4:32 PM) MCHC [32.0-36.0 31.1 g/dL g/dL] *LOW* (01/12/16 4:32 PM) RDW [11.5-14.5 %] 18.4 % *HI* (01/12/16 4:32 PM) Platelet [133-450 480 K/CMM K/CMM] *HI* (01/12/16 4:32 PM) MPV [7.4-10.4 fL] 8.2 fL (01/12/16 4:32 PM) Segs [45.0-75.0 %] 72.9 % (01/12/16 4:32 PM) Lymphocytes 18.0 % [20.0-40.0 %] *LOW* (01/12/16 4:32 PM) Monocytes [2.0-12.0 4.8 % %] (01/12/16 4:32 PM) Eosinophils [0.0-4.0 2.9 % %] (01/12/16 4:32 PM) Basophils [0.0-1.0 1.4 % %] *HI* (01/12/16 4:32 PM) Segs-Bands # 4.7 K/CMM [1.5-8.1 K/CMM] (01/12/16 4:32 PM) Lymphocytes # 1.2 K/CMM [1.0-5.5 K/CMM] (01/12/16 4:32 PM) Monocytes # [0.0-0.8 0.3 K/CMM K/CMM] (01/12/16 4:32 PM) Eosinophils # 0.2 K/CMM [0.0-0.5 K/CMM] (01/12/16 4:32 PM) Basophils # [0.0-0.2 0.1 K/CMM K/CMM] (01/12/16 4:32 PM) Microcyte [None 1+ Seen] *ABN* (01/12/16 4:32 PM) Immunizations Not Given Vaccine Date Status [...]
--- OUTSIDE RECORDS SUMMARY | 2020-01-09 19:52 | XMS REPORT | CCD ---
Author Author [facility] Address Unknown Phone Unavailable Care Team Providers Care Sales Research Analyst Name Role Phone Cal Rodriguez CP Allergies, Adverse Reactions, Alerts Substance Reaction Status vancomycin Active Problem List Condition Effective Dates Status [M]Non-Hodgkin's lymphoma Active Fever Active Shortness of breath Active Medications Medication Instructions Start Date End Date Status Macrobid 100 mg oral 100 mg, 1 cap, PO, BID, 14 cap, 09/23/19 13 Ordered capsule Substitution Allowed Sodium Chloride 0.9% 1,000 mL, Rate: 1,000 ml/hr, Infuse 09/0309/22/2012 Completed (Bolus) IV 1,000 mL over: 1 hr, Route: IV, kg, Total Volume: 1,000, Priority: STAT, Start date: 09/22/12 16:18:00, Duration: 1 doses or times, Stop date: 09/22/12 17:17:00, Bolus Dose Bolus Dose Vital Signs Most recent to oldest [Reference Range]: 1 Height 162.56 cm (09/22/2012 13:59:00) Weight 108.182 kg (09/22/2012 13:59:00) Results URINALYSIS Most recent to oldest [Reference Range]: 1 UA Turbidity [Clear] Slight *ABN* (09/22/2012 16:00:00) UA Color Ltyellow *NA* (09/22/2012 16:00:00) UA pH [5.0-8.0] 7.0 (09/22/2012 16:00:00) UA Spec Grav [<=1.030] 1.020 (09/22/2012 16:00:00) UA Glucose [Negative mg/dL] Negative mg/dL *NA* (09/22/2012 16:00:00) UA Blood [Negative] Negative (09/22/2012 16:00:00) UA Ketones [Negative mg/dL] Negative mg/dL *NA* (09/22/2012 16:00:00) UA Protein [Negative mg/dL] Negative mg/dL (09/22/2012 16:00:00) UA Urobilinogen [0.1-1.0 mg/dL] <=1.0 mg/dL *NA* (09/22/2012 16:00:00) UA Bili [Negative] Negative *NA* (09/22/2012 16:00:00) UA Leuk Est [Negative] Large *ABN* (09/22/2012 16:00:00) UA Nitrite [Negative] Negative (09/22/2012 16:00:00) UA WBC [0-5 /HPF] 10 /HPF *HI* (09/22/2012 16:00:00) UA RBC [0-2 /HPF] 2 /HPF (09/22/2012 16:00:00) UA Bacteria [None Seen /HPF] Occasional /HPF *NA* (09/22/2012 16:00:00) UA Sq Epi [Few /LPF] Many /LPF *ABN* (09/22/2012 16:00:00) CHEMISTRY Most recent to oldest [Reference Range]: 1 Sodium Lvl [135-145 mEq/L] 137 mEq/L (09/22/2012 15:20:00) Potassium Lvl [3.5-5.1 mEq/L] 3.9 mEq/L (09/22/2012 15:20:00) Chloride Lvl [95-109 mEq/L] 102 mEq/L (09/22/2012 15:20:00) CO2 [24-32 mEq/L] 28 mEq/L (09/22/2012 15:20:00) AGAP [10.0-20.0 mEq/L] 10.9 mEq/L (09/22/2012 15:20:00) Creatinine Lvl [0.5-1.4 mg/dL] 1.1 mg/dL (09/22/2012 15:20:00) eGFR 66 mL/min/1.73m2 1 *NA* (09/22/2012 15:20:00) BUN [7-22 mg/dL] 19 mg/dL (09/22/2012:20:00) B/C Ratio [6-25] 17 (09/22/2012 15:20:00) Glucose Lvl [70-99 mg/dL] 108 mg/dL 2 *HI* (09/22/2012:20:00) Total Protein [6.4-8.4 g/dL] 7.8 g/dL (09/22/2012:20:00) Albumin Lvl [3.5-5.0 g/dL] 4.0 g/dL (09/22/2012:20:00) Globulin [2.0-4.0 g/dL] 3.8 g/dL (09/22/2012:20:00) A/G Ratio [0.7-1.6] 1.1 (09/22/2012:20:00) Calcium Lvl [8.5-10.5 mg/dL] 8.0 mg/dL *LOW* (09/22/2012:20:00) ALT [0-65 unit/L] 60 unit/L (09/22/2012:20:00) AST [0-37 unit/L] 72 unit/L *HI* (09/22/2012:20:00) Alk Phos [39-136 unit/L] 133 unit/L (09/22/2012:20:00) Bili Total [0.2-1.3 mg/dL] 0.3 mg/dL (09/22/2012:20:00) Total CK [12-191 unit/L] 1042 unit/L *HI* (09/22/2012:20:00) CK MB [0.5-3.6 ng/mL] 6.7 ng/mL *HI* (09/22/2012:20:00) CK MB Index [0.0-2.5] 0.6 (09/22/2012:20:00) 1Result Comment: The eGFR is calculated using [...] be mul tiplied by the estimated BMI. 2Interpretive Data: Adult reference range values reflect the clinical guidelines of the [employer]. HEMATOLOGY Most recent to oldest [Reference Range]: 1 WBC [3.7-10.4 K/CMM] 10.2 K/CMM (09/22/2012:20:00) RBC [4.20-5.40 M/CMM] 3.25 M/CMM *LOW* (09/22/2012:20:00) Hgb [12.0-16.0 g/dL] 8.5 g/dL *LOW* (09/22/2012:20:00) Hct [36.0-48.0 %] 27.4 % *LOW* (09/22/2012:20:00) MCV [81.0-99.0 fL] 84.4 fL (09/22/2012:20:00) MCH [27.0-31.0 pg] 26.2 pg *LOW* (09/22/2012:20:00) MCHC [32.0-36.0 g/dL] 31.1 g/dL *LOW* (09/22/2012:20:00) RDW [11.5-14.5 %] 16.0 % *HI* (09/22/2012:20:00) Platelet [133-450 K/CMM] 666 K/CMM *HI* (09/22/2012:20:00) MPV [7.4-10.4 fL] 7.8 fL (09/22/2012:20:00) Segs [45.0-75.0 %] 58.3 % (09/22/2012:20:00) Lymphocytes [20.0-40.0 %] 30.0 % (09/22/2012:2000) Monocytes [2.0-12.0 %] 6.5 % (09/22/2012 15:20:00) Eosinophils [0.0-4.0 %] 4.3 % *HI* (09/22/2012 15:20:00) Basophils [0.0-1.0 %] 0.9 % (09/22/2012 15:20:00) Segs-Bands # [1.5-8.1 K/CMM] 6.0 K/CMM (09/22/2012 15:20:00) Lymphocytes # [1.0-5.5 K/CMM] 3.1 K/CMM (09/22/2012 15:20:00) Monocytes # [0.0-0.8 K/CMM] 0.7 K/CMM (09/22/2012 15:20:00) Eosinophils # [0.0-0.5 K/CMM] 0.4 K/CMM (09/22/2012 15:20:00) Basophils # [0.0-0.2 K/CMM] 0.1 K/CMM (09/22/2012 15:20:00) Microbiology Reports PROCEDURE:Culture: Urine STATUS: In Progress BODY SITE: COLLECTED DATE/TIME: 09/22/2012 16:00:00 SOURCE: Urine, Clean Catch FREE TEXT SOURCE: PRELIMINARY REPORTS Preliminary Report >100,000 CFU/mL Gram Negative Rods, Non-Lactose Fermenters Identification And Sensitivity To Follow Preliminary Report 50,000 - 100,000 CFU/mL Gram Negative Rods, Non-Lactose Fermenters Subculture In Progress Preliminary Report Culture In Progress
--- OUTSIDE RECORDS SUMMARY | 2020-01-09 19:52 | XMS REPORT | Summary of Care ---
Author Author [facility] Organization [facility] Address Unknown Phone Unavailable Care Team Providers Care Surgeon'S Assistant Name Role Phone Crys Ruano PCP Encounter [facility]) [id number] Date(s): 06/25/18 - 06/25/18 [facility] [address] [place] [address]- Encounter Diagnosis Acute ischemic heart disease, unspecified (Final) - 06/28/18 Type 2 diabetes mellitus without complications (Final) - Postprocedural hypothyroidism (Final) - Essential (primary) hypertension (Final) - jail (current) use of 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/antiplatelets (Final) - terminal supervisor (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 (Final) - terminal supervisor (current) use of oral hypoglycemic drugs (Final) - Other terminal operations manager (current) drug therapy (Final) - Personal history of Hodgkin lymphoma (Final) - Allergy status to other antibiotic agents status (Final) - Presence of aortocoronary bypass graft (Final) - Discharge Disposition: Elopement Attending Physician: Ben Ring MD Admitting Physician: Darin Hoover MD Vital Signs 1 2 3 Most recent to oldest [Reference Range]: 162.56 cm (06/25/18 8:20 AM) Height 98.6 DegF (06/25/18 8:20 AM) Temperature Oral [96.4-99.1 DegF] 105/69 mmHg (06/25/18 12:00 PM) 118/70 mmHg (06/25/18 11:14 AM) 148/99 mmHg *HI* (06/25/18 8:20 AM) Blood Pressure [90-140/60-90 mmHg] 17 BRMIN (06/25/18 12:00 PM) 20 BRMIN (06/25/18 11:14 AM) 18 BRMIN (06/25/18 8:20 AM) Respiratory Rate [14-20 BRMIN] 88 bpm (06/25/18 11:14 AM) 99 bpm (06/25/18 8:20 AM) Peripheral Pulse Rate [60-100 bpm] 95 kg (06/25/18 8:20 AM) Weight 35.95 m2 (06/25/18 8:20 AM) Body Mass Index Problem List Condition Effective Dates Status Health Status Informan t Anemia(Confirmed) Active Diabetes(Confirmed) Resolved Fever(Confirmed) Active Hodgkins Resolved lymphoma(Confirmed) Hypertension(Confirm Resolved ed) Neuropathy(Confirmed Resolved )1 Shortness of Active breath(Confirmed) Thyroidectomy(Confir Resolved med) 1affects legs Allergies, Adverse Reactions, Alerts Substance Reaction Severity Status vancomycin Active Medications morphine Sulfate 4 mg, 1 mL, Route: IVP, Drug form: SOLN, ONCE, Dosing Weight 95, kg, Priority: S TAT, Start date: 06/25/18 9:12:00 LAUNDRY SUPERINTENDENT, Stop date: 06/25/18 9:12:00 LAUNDRY SUPERINTENDENT Notes: (Same as:MORPhine Sulfate) Start Date: 06/25/18 Stop Date: 06/25/18 Status: Completed ondansetron 4 mg, 2 mL, Route: IVP, Drug form: INJ, ONCE, Dosing Weight 95, kg, Priority: ST AT, Start date: 06/25/18 9:12:00 LAUNDRY SUPERINTENDENT, Stop date: 06/25/18 9:12:00 LAUNDRY SUPERINTENDENT Notes: (Same as: Zofran) MEDICATION WASTE Product Size: 4 mgProduct Was eugene: ___ mg Start Date: 06/25/18 Stop Date: 06/25/18 Status: Completed Results Most recent to 1 oldest [Reference Range]: Neutrophils # 7.0 K/CMM [1.5-8.1 K/CMM] (06/25/18 9:16 AM) Lymphocytes # 2.0 K/CMM [1.0-5.5 K/CMM] (06/25/18 9:16 AM) Monocytes # [0.0-0.8 0.3 K/CMM K/CMM] (06/25/18 9:16 AM) Eosinophils # 0.2 K/CMM [0.0-0.5 K/CMM] (06/25/18 9:16 AM) Basophils # [0.0-0.2 0.1 K/CMM K/CMM] (06/25/18 9:16 AM) BNP [<=100 pg/mL] 56 pg/mL (06/25/18 9:16 AM) eGFR 76 mL/min/1.73m2 1 *NA* (06/25/18 9:16 AM) A/G Ratio [0.7-1.6] 0.9 (06/25/18 9:16 AM) Albumin Lvl [3.5-5.0 3.7 g/dL g/dL] (06/25/18 9:16 AM) Alk Phos [39-136 112 unit/L unit/L] (06/25/18 9:16 AM) ALT [0-65 unit/L] 22 unit/L (06/25/18 9:16 AM) AGAP [10.0-20.0 14.8 mEq/L mEq/L] (06/25/18 9:16 AM) AST [0-37 unit/L] 20 unit/L (06/25/18 9:16 AM) B/C Ratio [6-25] 14 (06/25/18 9:16 AM) Basophils [0.0-1.0 0.8 % %] (06/25/18 9:16 AM) BUN [7-22 mg/dL] 13 mg/dL (06/25/18 9:16 AM) Calcium Lvl 8.3 mg/dL [8.5-10.5 mg/dL] *LOW* (06/25/18 9:16 AM) Total CK [12-191 207 unit/L unit/L] *HI* (06/25/18 9:16 AM) Chloride Lvl [95-109 101 mEq/L mEq/L] (06/25/18 9:16 AM) CO2 [24-32 mEq/L] 27 mEq/L (06/25/18 9:16 AM) Creatinine Lvl 0.94 mg/dL [0.50-1.40 mg/dL] (06/25/18 9:16 AM) Eosinophils [0.0-4.0 1.7 % %] (06/25/18 9:16 AM) Globulin [2.7-4.2 4.2 g/dL g/dL] (06/25/18 9:16 AM) Glucose Lvl [70-99 162 mg/dL mg/dL] *HI* (06/25/18 9:16 AM) Hct [36.0-48.0 %] 31.1 % *LOW* (06/25/18 9:16 AM) Hgb [12.0-16.0 g/dL] 9.4 g/dL *LOW* (06/25/18 9:16 AM) INR [0.85-1.17] 1.06 (06/25/18 9:16 AM) Potassium Lvl 3.8 mEq/L [3.5-5.1 mEq/L] (06/25/18 9:16 AM) Lymphocytes 21.0 % [20.0-40.0 %] (06/25/18 9:16 AM) MCH [27.0-31.0 pg] 21.3 pg *LOW* (06/25/18 9:16 AM) MCHC [32.0-36.0 30.2 g/dL g/dL] *LOW* (06/25/18 9:16 AM) MCV [80.0-98.0 fL] 70.5 fL *LOW* (06/25/18 9:16 AM) Microcyte [None 2+ Seen] *ABN* (06/25/18 9:16 AM) Monocytes [2.0-12.0 3.6 % %] (06/25/18 9:16 AM) MPV [7.4-10.4 fL] 8.4 fL (06/25/18 9:16 AM) Sodium Lvl [135-145 139 mEq/L mEq/L] (06/25/18 9:16 AM) Platelet [133-450 587 K/CMM K/CMM] *HI* (06/25/18 9:16 AM) Segs [45.0-75.0 %] 72.9 % (06/25/18 9:16 AM) Total Protein 7.9 g/dL [6.4-8.4 g/dL] (06/25/18 9:16 AM) PT [12.0-14.7 13.6 seconds seconds] (06/25/18 9:16 AM) RBC [4.20-5.40 4.41 M/CMM M/CMM] (06/25/18 9:16 AM) RDW [11.5-14.5 %] 22.4 % *HI* (06/25/18 9:16 AM) S Preg [Negative] Negative *NA* (06/25/18 9:16 AM) Bili Total [0.2-1.3 0.6 mg/dL mg/dL] (06/25/18 9:16 AM) Troponin-I <0.02 ng/mL [0.00-0.40 ng/mL] (06/25/18 9:16 AM) UA Bacteria [None Moderate /HPF Seen /HPF] *ABN* (06/25/18 10:06 AM) UA Bili [Negative] Negative *NA* (06/25/18 10:06 AM) UA Blood [Negative] Large *ABN* (06/25/18 10:06 AM) UA Color Ltyellow *NA* (06/25/18 10:06 AM) UA Glucose Negative [Negative] *NA* (06/25/18 10:06 AM) UA Ketones Negative [Negative] *NA* (06/25/18 10:06 AM) UA Leuk Est Negative [Negative] (06/25/18 10:06 AM) UA Nitrite Negative [Negative] (06/25/18 10:06 AM) UA pH [5.0-8.0] 6.0 (06/25/18 10:06 AM) UA Protein Negative [Negative] (06/25/18 10:06 AM) UA RBC [0-2 /HPF] 3 /HPF *HI* (06/25/18 10:06 AM) UA Spec Grav 1.009 [<=1.030] (06/25/18 10:06 AM) UA Sq Epi [Few /LPF] Few /LPF *NA* (06/25/18 10:06 AM) UA Turbidity [Clear] Slight *ABN* (06/25/18 10:06 AM) UA Urobilinogen <=1.0 mg/dL [0.1-1.0 mg/dL] *NA* (06/25/18 10:06 AM) UA WBC [0-5 /HPF] 4 /HPF (06/25/18 10:06 AM) WBC [3.7-10.4 K/CMM] 9.7 K/CMM (06/25/18 9:16 AM) 1Result Comment: The eGFR is calculated using [...] be mul tiplied by the estimated BMI. Immunizations Not Given Vaccine Date Status Refusal [...] No entered on: 06/25/18 Assessment and Plan No data available for this section
--- OUTSIDE RECORDS SUMMARY | 2020-01-09 19:52 | XMS REPORT | Summary of Care ---
Author Author [facility] Organization [facility] Address Unknown Phone Unavailable Care Team Providers Care Aircraft Manager Name Role Phone Crys Ruano PCP Encounter [facility]) [id number] Date(s): 06/04/19 - 06/05/19 [facility] [address] [place] [address]- Discharge Disposition: Home or Self Care Attending Physician: Crys Ruano MD Admitting Physician: Crys Ruano MD Vital Signs 1 2 3 Most recent to oldest [Reference Range]: 162.56 cm (06/04/19 3:19 PM) Height 97.9 DegF (06/05/19 12:05 PM) 97.7 DegF (06/05/19 7:41 AM) 97.6 DegF (06/05/19 4:14 AM) Temperature Oral [96.4-99.1 DegF] 104/65 mmHg (06/05/19 12:05 PM) 128/74 mmHg (06/05/19 7:41 AM) 115/76 mmHg (06/05/19 4:14 AM) Blood Pressure [90-140/60-90 mmHg] 14 BRMIN (06/05/19 12:05 PM) 16 BRMIN (06/05/19 7:41 AM) 17 BRMIN (06/05/19 4:14 AM) Respiratory Rate [14-20 BRMIN] 54 bpm *LOW* (06/05/19 12:05 PM) 79 bpm (06/05/19 7:41 AM) 84 bpm (06/05/19 4:14 AM) Peripheral Pulse Rate [60-100 bpm] 100 kg (06/04/19 3:19 PM) 100 kg (06/04/19 10:38 AM) Weight 37.84 m2 (06/04/19 3:19 PM) Body Mass Index Problem List Condition Effective Dates Status Health Status Informan t Anemia(Confirmed) Active Diabetes(Confirmed) Resolved Fever(Confirmed) Active Hodgkins Resolved lymphoma(Confirmed) Hypertension(Confirm Resolved ed) Neuropathy(Confirmed Resolved )1 Shortness of Active breath(Confirmed) Thyroidectomy(Confir Resolved med) 1affects legs Allergies, Adverse Reactions, Alerts Substance Reaction Severity Status vancomycin Active Medications acetaminophen 650 mg, 2 tab, Route: PO, Drug form: TAB, Q4H, Dosing Weight 100, kg, PRN Pain 1 -3/Temp > 100.4 F, Start date: 06/04/19 14:22:00 SPRAY DRIER OPERATOR, Duration: 30 day, Stop date: 07/04/19 14:21:00 SPRAY DRIER OPERATOR, 0 Notes: Do not exceed 4 gm/day. (Same as: Tylenol) Start Date: 06/04/19 Stop Date: 06/05/19 Status: Discontinued aspirin 81 mg tablet, enteric coated 81 mg, 1 tab, Route: PO, Drug form: ECTAB, Daily, Dosing Weight 100, kg, Start d ate: 06/04/19 21:00:00 SPRAY DRIER OPERATOR, Duration: 30 day, Stop date: 07/03/19 21:00:00 SPRAY DRIER OPERATOR, 0 Notes: Do not crush or chew.(Same As: Ecotrin) Start Date: 06/04/19 Stop Date: 06/05/19 Status: Discontinued Benadryl 50 mg, Route: IVP, ONCE, Dosing Weight 100, kg, PRN Allergic reaction, Start charlie e: 06/04/19 15:20:00 SPRAY DRIER OPERATOR Start Date: 06/04/19 Stop Date: 06/04/19 Status: Completed Dextrose 50% Syringe (D50W) 12.5 gm, 25 mL, Route: IVP, Drug Form: INJ, Dosing Weight 100, kg, PRN, PRN Bloo d Glucose Results, Start date: 06/04/19 14:22:00 SPRAY DRIER OPERATOR, Duration: 30 day, Stop charlie e: 07/04/19 14:21:00 SPRAY DRIER OPERATOR, 0 Start Date: 06/04/19 Stop Date: 06/04/19 Status: Deleted Dextrose 50% Syringe (D50W) 25 gm, 50 mL, Route: IVP, Drug Form: INJ, Dosing Weight 100, kg, PRN, PRN Blood Glucose Results, Start date: 06/04/19 14:22:00 SPRAY DRIER OPERATOR, Duration: 30 day, Stop date: 07/04/19 14:21:00 SPRAY DRIER OPERATOR, 0 Start Date: 06/04/19 Stop Date: 06/04/19 Status: Deleted Dextrose 50% Syringe (D50W) 12.5 gm, 25 mL, Route: IVP, Drug Form: INJ, Dosing Weight 100, kg, PRN, PRN Bloo d Glucose Results, Start date: 06/04/19 17:32:00 SPRAY DRIER OPERATOR, Duration: 30 day, Stop charlie e: 07/04/19 17:31:00 SPRAY DRIER OPERATOR, 0 Start Date: 06/04/19 Stop Date: 06/05/19 Status: Discontinued Dextrose 50% Syringe (D50W) 25 gm, 50 mL, Route: IVP, Drug Form: INJ, Dosing Weight 100, kg, PRN, PRN Blood Glucose Results, Start date: 06/04/19 17:32:00 SPRAY DRIER OPERATOR, Duration: 30 day, Stop date: 07/04/19 17:31:00 SPRAY DRIER OPERATOR, 0 Start Date: 06/04/19 Stop Date: 06/05/19 Status: Discontinued docusate 100 mg, 1 cap, Route: PO, Drug form: CAP, BID, Dosing Weight 100, kg, Start date : 06/04/19 17:00:00 SPRAY DRIER OPERATOR, Duration: 30 day, Stop date: 07/04/19 9:00:00 SPRAY DRIER OPERATOR, 0 Notes: (Same as: Colace) (Do Not Crush) Start Date: 06/04/19 Stop Date: 06/05/19 Status: Discontinued glipiZIDE-metformin 2.5 mg-250 mg oral tablet 1 tab, Route: PO, Drug Form: TAB, Dosing Weight 100, kg, Daily, Start date: 07/24 9:00:00 SPRAY DRIER OPERATOR, Duration: 30 day, Stop date: 07/04/19 9:00:00 SPRAY DRIER OPERATOR Start Date: 06/05/19 Stop Date: 06/04/19 Status: Deleted glucagon 1 mg, Route: IM, Drug form: PDR/INJ, PRN, Dosing Weight 100, kg, PRN Blood Gluco se Results, Start date: 06/04/19 14:22:00 SPRAY DRIER OPERATOR, Duration: 30 day, Stop date: 06/06 06/23 14:21:00 SPRAY DRIER OPERATOR, 0 Start Date: 06/04/19 Stop Date: 06/04/19 Status: Deleted glucagon 1 mg, Route: IM, Drug form: PDR/INJ, PRN, Dosing Weight 100, kg, PRN Blood Gluco se Results, Start date: 06/04/19 17:32:00 SPRAY DRIER OPERATOR, Duration: 30 day, Stop date: 06/06 06/23 17:31:00 SPRAY DRIER OPERATOR, 0 Start Date: 06/04/19 Stop Date: 06/05/19 Status: Discontinued Glucophage 250 mg, 0.5 tab, Route: PO, Drug form: TAB, Breakfast, Start date: 06/05/19 8:00 :00 SPRAY DRIER OPERATOR, Duration: 30 day, Stop date: 07/04/19 8:00:00 SPRAY DRIER OPERATOR, 0 Notes: (Same as: Glucophage) Take with meal Start Date: 06/05/19 Stop Date: 06/05/19 Status: Discontinued Glucotrol 2.5 mg, 0.5 tab, Route: PO, Drug form: TAB, Before Breakfast, Start date: 7:30:00 SPRAY DRIER OPERATOR, Duration: 30 day, Stop date: 07/04/19 7:30:00 SPRAY DRIER OPERATOR, 0 Notes: (Same as: Glucotrol) 30 min before meals. Start Date: 06/05/19 Stop Date: 06/05/19 Status: Discontinued insulin lispro 1 unit, 0.01 mL, Route: SUB-Q, Drug form: SOLN, TID-Before Meals, Dosing Weight 100, kg, PRN Blood Glucose Results, Start date: 06/04/19 17:32:00 SPRAY DRIER OPERATOR, Duration: 30 day, Stop date: 07/04/19 17:31:00 SPRAY DRIER OPERATOR, 0 Notes: (Same as: Humalog) Roll in palms of hands gently; Do not shake vigorously . WASTE: F/P - Black; E - Municipal Trash BinStable for 28 days at room tempera ture.Expires in days from Date Start Date: 06/04/19 Stop Date: 06/05/19 Status: Discontinued insulin lispro 2 unit, 0.02 mL, Route: SUB-Q, Drug form: SOLN, TID-Before Meals, Dosing Weight 100, kg, PRN Blood Glucose Results, Start date: 06/04/19 17:32:00 SPRAY DRIER OPERATOR, Duration: 30 day, Stop date: 07/04/19 17:31:00 SPRAY DRIER OPERATOR, 0 Notes: (Same as: Humalog) Roll in palms of hands gently; Do not shake vigorously . WASTE: F/P - Black; E - Municipal Trash BinStable for 28 days at room [facility].Expires in days from Date Start Date: 06/04/19 Stop Date: 06/05/19 Status: Discontinued insulin lispro 3 unit, 0.03 mL, Route: SUB-Q, Drug form: SOLN, TID-Before Meals, Dosing Weight 100, kg, PRN Blood Glucose Results, Start date: 06/04/19 17:32:00 SPRAY DRIER OPERATOR, Duration: 30 day, Stop date: 07/04/19 17:31:00 SPRAY DRIER OPERATOR, 0 Notes: (Same as: Humalog) Roll in palms of hands gently; Do not shake vigorously . WASTE: F/P - Black; E - Municipal Trash BinStable for 28 days at room [facility].Expires in days from Date Start Date: 06/04/19 Stop Date: 06/05/19 Status: Discontinued insulin lispro 4 unit, 0.04 mL, Route: SUB-Q, Drug form: SOLN, TID-Before Meals, Dosing Weight 100, kg, PRN Blood Glucose Results, Start date: 06/04/19 17:32:00 SPRAY DRIER OPERATOR, Duration: 30 day, Stop date: 07/04/19 17:31:00 SPRAY DRIER OPERATOR, 0 Notes: (Same as: Humalog) Roll in palms of hands gently; Do not shake vigorously . WASTE: F/P - Black; E - Municipal Trash BinStable for 28 days at room [facility].Expires in days from Date Start Date: 06/04/19 Stop Date: 06/05/19 Status: Discontinued insulin lispro 5 unit, 0.05 mL, Route: SUB-Q, Drug form: SOLN, TID-Before Meals, Dosing Weight 100, kg, PRN Blood Glucose Results, Start date: 06/04/19 17:32:00 SPRAY DRIER OPERATOR, Duration: 30 day, Stop date: 07/04/19 17:31:00 SPRAY DRIER OPERATOR, 0 Notes: (Same as: Humalog) Roll in palms of hands gently; Do not shake vigorously . WASTE: F/P - Black; E - Municipal Trash BinStable for 28 days at room tempera ture.Expires in days from Date Start Date: 06/04/19 Stop Date: 06/05/19 Status: Discontinued Januvia 25 mg, 1 tab, Route: PO, Drug form: TAB, Daily, Dosing Weight 100, kg, Start charlie e: 06/05/19 9:00:00 SPRAY DRIER OPERATOR, Duration: 30 day, Stop date: 07/04/19 9:00:00 SPRAY DRIER OPERATOR, 0 Notes: Same as Januvia Start Date: 06/05/19 Stop Date: 06/05/19 Status: Discontinued Januvia 25 mg oral tablet 25 mg = 1 tab, PO, Daily, # 30 tab, 0 Refill(s) Start Date: 06/04/19 Status: Ordered ketOROLAC 15 mg/mL injectable solution 15 mg, Route: IVP, Drug form: INJ, ONCE, Dosing Weight 100, kg, Priority: STAT, Start date: 06/04/19 13:52:00 SPRAY DRIER OPERATOR, Stop date: 06/04/19 13:52:00 SPRAY DRIER OPERATOR Start Date: 06/04/19 Stop Date: 06/04/19 Status: Completed levothyroxine 175 microgram, 1 tab, Route: PO, Drug form: TAB, Q630AM, Dosing Weight 100, kg, Start date: 06/05/19 6:30:00 SPRAY DRIER OPERATOR, Duration: 30 day, Stop date: 07/04/19 6:30:00 SPRAY DRIER OPERATOR, 0 Notes: Take 1 hour before or 2 hours after meal; Enteral feeds may interefere wi th the absorption of this medication. (Same as: Levothroid, Synthroid) Start Date: 06/05/19 Stop Date: 06/05/19 Status: Discontinued Lipitor 80 mg, 2 tab, Route: PO, Drug form: TAB, Bedtime, Dosing Weight 100, kg, Start d ate: 06/04/19 21:00:00 SPRAY DRIER OPERATOR, Duration: 30 day, Stop date: 07/03/19 21:00:00 SPRAY DRIER OPERATOR, 0 Notes: (Same as: Lipitor) Start Date: 06/04/19 Stop Date: 06/05/19 Status: Discontinued Lyrica 75 mg, 1 cap, Route: PO, Drug form: CAP, BID, Dosing Weight 100, kg, Start date: 06/04/19 21:00:00 SPRAY DRIER OPERATOR, Duration: 30 day, Stop date: 07/04/19 9:00:00 SPRAY DRIER OPERATOR, 0 Notes: (Same as: Lyrica) Start Date: 06/04/19 Stop Date: 06/05/19 Status: Discontinued metoprolol tartrate 25 mg, 1 tab, Route: PO, Drug form: TAB, Q12H, Dosing Weight 100, kg, Start date : 06/04/19 21:00:00 SPRAY DRIER OPERATOR, Duration: 30 day, Stop date: 07/04/19 9:00:00 SPRAY DRIER OPERATOR, 0 Notes: (Same as: Lopressor) Start Date: 06/04/19 Stop Date: 06/05/19 Status: Discontinued ondansetron 4 mg, 2 mL, Route: IVP, Drug form: INJ, Q8H, Dosing Weight 100, kg, PRN Nausea & Vomiting, Start date: 06/04/19 14:22:00 SPRAY DRIER OPERATOR, Duration: 30 day, Stop date: 07/04 14:21:00 SPRAY DRIER OPERATOR, 0 Notes: (Same as: Zofran) MEDICATION WASTE Product Size: 4 mgProduct Was eugene: ___ mg Start Date: 06/04/19 Stop Date: 06/05/19 Status: Discontinued RN please update h/w/a in ad hoc RN please update h/w/a in ad hoc, reminder, Drug form: MISC, Route: MISC, Q30Min , 06/04/19 15:30:00 SPRAY DRIER OPERATOR, Duration: 3 hr, Stop date: 06/04/19 18:00:00 SPRAY DRIER OPERATOR, 0 Start Date: 06/04/19 Stop Date: 06/04/19 Status: Deleted sertraline 50 mg, 1 tab, Route: PO, Drug form: TAB, Daily, Dosing Weight 100, kg, Start charlie e: 06/05/19 9:00:00 SPRAY DRIER OPERATOR, Duration: 30 day, Stop date: 07/04/19 9:00:00 SPRAY DRIER OPERATOR, 0 Notes: (Same as: Zoloft) Start Date: 06/05/19 Stop Date: 06/05/19 Status: Discontinued Sodium Chloride 0.9% (titrate) 250 mL 250 mL, Rate: To prime line and flush remaining blood products., Dosing Weight 1 00, kg, Route: IV, Total Volume: 250, Start Date: 06/04/19 14:06:00 SPRAY DRIER OPERATOR, Duratio n: 1 day, Stop date: 06/05/19 14:05:00 SPRAY DRIER OPERATOR, Replace Every: 24 hr, 0 Start Date: 06/04/19 Stop Date: 06/05/19 Status: Completed Trulicity Pen 1.5 mg/0.5 mL subcutaneous solution 1.5 mg, SUB-Q, 5X Day, 0 Refill(s) Start Date: 06/04/19 Status: Ordered zolpidem 5 mg, 1 tab, Route: PO, Drug form: TAB, Bedtime, Dosing Weight 100, kg, Start da te: 06/04/19 21:00:00 SPRAY DRIER OPERATOR, Duration: 30 day, Stop date: 07/03/19 21:00:00 SPRAY DRIER OPERATOR, 0 Notes: (Same As: Ambien) Start Date: 06/04/19 Stop Date: 06/05/19 Status: Discontinued zolpidem 5 mg oral tablet 5 mg = 1 tab, PO, Bedtime, # 30 tab, 0 Refill(s) Start Date: 06/05/19 Stop Date: 06/06/19 Status: Completed Results 1 2 3 Most recent to oldest [Reference Range]: 5.2 K/CMM (06/04/19 11:25 AM) Neutrophils # [1.5-8.1 K/CMM] 1.8 K/CMM (06/04/19 11:25 AM) Lymphocytes # [1.0-5.5 K/CMM] 0.4 K/CMM (06/04/19 11:25 AM) Monocytes # [0.0-0.8 K/CMM] 0.2 K/CMM (06/04/19 11:25 AM) Eosinophils # [0.0-0.5 K/CMM] 0.1 K/CMM (06/04/19 11:25 AM) Basophils # [0.0-0.2 K/CMM] Normal (06/04/19 11:25 AM) Plt Morph [Normal] 68 mL/min/1.73m2 1 *NA* (06/04/19 11:25 AM) eGFR Product available 2 (06/04/19 2:06 PM) RBC product O NEG *Unknown* (06/04/19 11:25 AM) ABO/Rh 31 % (06/04/19 9:56 PM) % Satur Fe [12-57 %] 0.8 (06/04/19 11:25 AM) A/G Ratio [0.7-1.6] Negative (06/04/19 11:25 AM) Antibody Scrn 3.4 g/dL *LOW* (06/04/19 11:25 AM) Albumin Lvl [3.5-5.0 g/dL] 115 unit/L (06/04/19 11:25 AM) Alk Phos [39-136 unit/L] 27 unit/L (06/04/19 11:25 AM) ALT [0-65 unit/L] 9.9 mEq/L *LOW* (06/04/19 11:25 AM) AGAP [10.0-20.0 mEq/L] 34 unit/L (06/04/19 11:25 AM) AST [0-37 unit/L] 10 (06/04/19 11:25 AM) B/C Ratio [6-25] 1.5 % *HI* (06/04/19 11:25 AM) Basophils [0.0-1.0 %] 10 mg/dL (06/04/19 11:25 AM) BUN [7-22 mg/dL] 8.0 mg/dL *LOW* (06/04/19 11:25 AM) Calcium Lvl [8.5-10.5 mg/dL] 103 mEq/L (06/04/19 11:25 AM) Chloride Lvl [95-109 mEq/L] 28 mEq/L (06/04/19 11:25 AM) CO2 [24-32 mEq/L] 1.02 mg/dL (06/04/19 11:25 AM) Creatinine Lvl [0.50-1.40 mg/dL] 3.0 % (06/04/19 11:25 AM) Eosinophils [0.0-4.0 %] 3 ng/mL *LOW* (06/04/19 9:56 PM) Ferritin Lvl [5-204 ng/mL] 10.3 ng/mL (06/04/19 9:56 PM) Folate Lvl [>=3.0 ng/mL] 4.3 g/dL *HI* (06/04/19 11:25 AM) Globulin [2.7-4.2 g/dL] 183 mg/dL *HI* (06/04/19 11:25 AM) Glucose Lvl [70-99 mg/dL] 25.8 % *LOW* (06/04/19 11:25 AM) Hct [36.0-48.0 %] 8.6 g/dL *LOW* (06/05/19 5:20 AM) 7.5 g/dL *LOW* (06/04/19 11:25 AM) Hgb [12.0-16.0 g/dL] 2+ (06/04/19 11:25 AM) Hypochrom [None Seen] 1.05 (06/04/19 11:25 AM) INR [0.85-1.17] 160 ug/dl (06/04/19 9:56 PM) Iron [30-160 ug/dl] 3.9 mEq/L (06/04/19 11:25 AM) Potassium Lvl [3.5-5.1 mEq/L] 216 unit/L *HI* (06/04/19 9:56 PM) LDH [98-192 unit/L] 23.1 % (06/04/19 11:25 AM) Lymphocytes [20.0-40.0 %] 18.0 pg *LOW* (06/04/19 11:25 AM) MCH [27.0-31.0 pg] 28.9 g/dL *LOW* (06/04/19 11:25 AM) MCHC [32.0-36.0 g/dL] 62.4 fL *LOW* (06/04/19 11:25 AM) MCV [80.0-98.0 fL] 3+ *NA* (06/04/19 11:25 AM) Microcyte [None Seen] 5.3 % (06/04/19 11:25 AM) Monocytes [2.0-12.0 %] 8.7 fL (06/04/19 11:25 AM) MPV [7.4-10.4 fL] 137 mEq/L (06/04/19 11:25 AM) Sodium Lvl [135-145 mEq/L] 467 K/CMM *HI* (06/04/19 11:25 AM) Platelet [133-450 K/CMM] 67.1 % (06/04/19 11:25 AM) Segs [45.0-75.0 %] 7.7 g/dL (06/04/19 11:25 AM) Total Protein [6.4-8.4 g/dL] 13.7 seconds (06/04/19 11:25 AM) PT [12.0-14.7 seconds] 28.9 seconds (06/04/19 11:25 AM) PTT [22.9-35.8 seconds] 4.14 M/CMM *LOW* (06/04/19 11:25 AM) RBC [4.20-5.40 M/CMM] 20.5 % *HI* (06/04/19 11:25 AM) RDW [11.5-14.5 %] 1.5 % (06/04/19 11:25 AM) Retic Auto [0.5-1.5 %] Negative *NA* (06/04/19 11:25 AM) S Preg [Negative] 0.3 mg/dL (06/04/19 11:25 AM) Bili Total [0.2-1.3 mg/dL] 509 ug/dl *HI* (06/04/19 9:56 PM) TIBC [228-428 ug/dl] <0.02 ng/mL (06/05/19 5:20 AM) <0.02 ng/mL (06/04/19 9:56 PM) <0.02 ng/mL (06/04/19 11:25 AM) Troponin-I [0.00-0.40 ng/mL] 349 ug/dl (06/04/19 9:56 PM) UIBC [110-370 ug/dl] 401 pg/mL (06/04/19 9:56 PM) Vitamin B12 Lvl [254-1320 pg/mL] 7.7 K/CMM (06/04/19 11:25 AM) WBC [3.7-10.4 K/CMM] 1Result Comment: The eGFR is calculated using [...] tiplied by the estimated BMI. 2Result Comment: 06/04/2019 14:14 SHEREE CALLED TO [place]EN 06/04/2019 14:14 Immunizations Not Given Vaccine Date Status Refusal [...] 1x2 Social History Social History Type Response Alcohol Current, Type Beer, Wine. Frequency: 1-2 times per month. Substance Abuse Use: None. Smoking Status Never smoker; Exposure to T obacco Smoke None; Cigarette Smoking Last 365 Days No; Reg Smoking Cessation Counseli ng No entered on: 06/04/19 Assessment and Plan Extracted from: Title: Clinical Document Author: Pablo Padilla MD Date: [...]
--- OUTSIDE RECORDS SUMMARY | 2020-01-09 19:52 | XMS REPORT | Summary of Care ---
Author Author [facility] Organization [facility] Address Unknown Phone Unavailable Encounter ARLEY Montemayor(ELMER) [id number] Date(s): 06/25/18 - 06/25/18 [facility] [address] [place] [address]- [phone] Discharge Disposition: [facility]TC Left B4 Treatment Cmplt-MSE Cmplt Attending Physician: Ben Ring MD Admitting Physician: [...] Priority: S TAT, Start date: 06/25/18 9:12:00 CUSTOM APPLICATOR, Stop date: 06/25/18 9:12:00 CUSTOM APPLICATOR Notes: (Same as:MORPhine Sulfate) Start Date: 06/25/18 Stop Date: 06/25/18 Status: Completed ondansetron 4 mg, 2 mL, Route: IVP, Drug form: INJ, ONCE, Dosing Weight 95, kg, Priority: ST AT, Start date: 06/25/18 9:12:00 CUSTOM APPLICATOR, Stop date: 06/25/18 9:12:00 CUSTOM APPLICATOR Notes: (Same as: Zofran) MEDICATION WASTE Product Size: 4 mgProduct Was eugene: ___ mg Start Date: 06/25/18 Stop Date: 06/25/18 Status: Completed Results ELECTROLYTES Most recent to 1 oldest [Reference Range]: Sodium Lvl [135-145 139 mEq/L mEq/L] (06/25/18 9:16 AM) Potassium Lvl 3.8 mEq/L [3.5-5.1 mEq/L] (06/25/18 9:16 AM) Chloride Lvl [95-109 101 mEq/L mEq/L] (06/25/18 9:16 AM) CO2 [24-32 mEq/L] 27 mEq/L (06/25/18 9:16 AM) AGAP [10.0-20.0 14.8 mEq/L mEq/L] (06/25/18 9:16 AM) CHEM PANEL Most recent to 1 oldest [Reference Range]: Creatinine Lvl 0.94 mg/dL [0.50-1.40 mg/dL] (06/25/18 9:16 AM) eGFR 76 mL/min/1.73m2 1 *NA* (06/25/18 9:16 AM) BUN [7-22 mg/dL] 13 mg/dL (06/25/18 9:16 AM) B/C Ratio [6-25] 14 (06/25/18 9:16 AM) Glucose Lvl [70-99 162 mg/dL mg/dL] *HI* (06/25/18 9:16 AM) Total Protein 7.9 g/dL [6.4-8.4 g/dL] (06/25/18 9:16 AM) Albumin Lvl [3.5-5.0 3.7 g/dL g/dL] (06/25/18 9:16 AM) Globulin [2.7-4.2 4.2 g/dL g/dL] (06/25/18 9:16 AM) A/G Ratio [0.7-1.6] 0.9 (06/25/18 9:16 AM) Calcium Lvl 8.3 mg/dL [8.5-10.5 mg/dL] *LOW* (06/25/18 9:16 AM) ALT [0-65 unit/L] 22 unit/L (06/25/18 9:16 AM) AST [0-37 unit/L] 20 unit/L (06/25/18 9:16 AM) Alk Phos [39-136 112 unit/L unit/L] (06/25/18 9:16 AM) Bili Total [0.2-1.3 0.6 mg/dL mg/dL] (06/25/18 9:16 AM) 1Result Comment: The eGFR [...] 1 oldest [Reference Range]: Total CK [12-191 207 unit/L unit/L] *HI* (06/25/18 9:16 AM) Troponin-I <0.02 ng/mL [0.00-0.40 ng/mL] (06/25/18 9:16 AM) BNP [<=100 pg/mL] 56 pg/mL (06/25/18 9:16 AM) ENDOCRINOLOGY Most recent to 1 oldest [Reference Range]: S Preg [Negative] Negative *NA* (06/25/18 9:16 AM) URINE AND STOOL Most recent to 1 oldest [Reference Range]: UA Turbidity [Clear] Slight *ABN* (06/25/18 10:06 AM) UA Color Ltyellow *NA* (06/25/18 10:06 AM) UA pH [5.0-8.0] 6.0 (06/25/18 10:06 AM) UA Spec Grav 1.009 [<=1.030] (06/25/18 10:06 AM) UA Glucose Negative [Negative] *NA* (06/25/18 10:06 AM) UA Blood [Negative] Large *ABN* (06/25/18 10:06 AM) UA Ketones Negative [Negative] *NA* (06/25/18 10:06 AM) UA Protein Negative [Negative] (06/25/18 10:06 AM) UA Urobilinogen <=1.0 mg/dL [0.1-1.0 mg/dL] *NA* (06/25/18 10:06 AM) UA Bili [Negative] Negative *NA* (06/25/18 10:06 AM) UA Leuk Est Negative [Negative] (06/25/18 10:06 AM) UA Nitrite Negative [Negative] (06/25/18 10:06 AM) UA WBC [0-5 /HPF] 4 /HPF (06/25/18 10:06 AM) UA RBC [0-2 /HPF] 3 /HPF *HI* (06/25/18 10:06 AM) UA Bacteria [None Moderate /HPF Seen /HPF] *ABN* (06/25/18 10:06 AM) UA Sq Epi [Few /LPF] Few /LPF *NA* (06/25/18 10:06 AM) HEMATOLOGY Most recent to 1 oldest [Reference Range]: WBC [3.7-10.4 K/CMM] 9.7 K/CMM (06/25/18 9:16 AM) RBC [4.20-5.40 4.41 M/CMM M/CMM] (06/25/18 9:16 AM) Hgb [12.0-16.0 g/dL] 9.4 g/dL *LOW* (06/25/18 9:16 AM) Hct [36.0-48.0 %] 31.1 % *LOW* (06/25/18 9:16 AM) MCV [80.0-98.0 fL] 70.5 fL *LOW* (06/25/18 9:16 AM) MCH [27.0-31.0 pg] 21.3 pg *LOW* (06/25/18 9:16 AM) MCHC [32.0-36.0 30.2 g/dL g/dL] *LOW* (06/25/18 9:16 AM) RDW [11.5-14.5 %] 22.4 % *HI* (06/25/18 9:16 AM) MPV [7.4-10.4 fL] 8.4 fL (06/25/18 9:16 AM) Platelet [133-450 587 K/CMM K/CMM] *HI* (06/25/18 9:16 AM) Segs [45.0-75.0 %] 72.9 % (06/25/18 9:16 AM) Lymphocytes 21.0 % [20.0-40.0 %] (06/25/18 9:16 AM) Monocytes [2.0-12.0 3.6 % %] (06/25/18 9:16 AM) Eosinophils [0.0-4.0 1.7 % %] (06/25/18 9:16 AM) Basophils [0.0-1.0 0.8 % %] (06/25/18 9:16 AM) Neutrophils # 7.0 K/CMM [1.5-8.1 K/CMM] (06/25/18 9:16 AM) Lymphocytes # 2.0 K/CMM [1.0-5.5 K/CMM] (06/25/18 9:16 AM) Monocytes # [0.0-0.8 0.3 K/CMM K/CMM] (06/25/18 9:16 AM) Eosinophils # 0.2 K/CMM [0.0-0.5 K/CMM] (06/25/18 9:16 AM) Basophils # [0.0-0.2 0.1 K/CMM K/CMM] (06/25/18 9:16 AM) Microcyte [None 2+ Seen] *ABN* (06/25/18 9:16 AM) PT [12.0-14.7 13.6 seconds seconds] (06/25/18 9:16 AM) INR [0.85-1.17] 1.06 (06/25/18 9:16 AM) Immunizations Not Given Vaccine Date Status Refusal [...]
--- OUTSIDE RECORDS SUMMARY | 2020-01-09 19:52 | XMS REPORT | Summary of Care ---
Author Organization Unknown Address Unknown Phone Unavailable Encounter [facility](ELMER) [id number] Date(s): 03/16/14 - 03/20/14 [facility] [address] [place], [place] [address] - [facility] Discharge Disposition: Home Physician Attending: Jeremy Cantu MD Physician Admitting: Jeremy Cantu MD Physician_Referring: Jeremy Cantu MD Reason for Visit CHEST PAIN, ANEMIA Vital Signs 1 2 3 Most recent to oldest [Reference Range]: 162.56 cm (03/16/14 3:58 PM) Height 98.2 DegF (03/20/14 3:35 PM) 98.2 DegF (03/20/14 11:17 AM) 98.2 DegF (03/20/14 7:34 AM) Temperature Oral [96.4-99.1 DegF] 130 mmHg (03/20/14 3:35 PM) 126 mmHg (03/20/14 11:17 AM) 106 mmHg (03/20/14 7:34 AM) Systolic Blood Pressure [90-140 mmHg] 80 mmHg (03/20/14 3:35 PM) 83 mmHg (03/20/14 11:17 AM) 67 mmHg (03/20/14 7:34 AM) Diastolic Blood Pressure [60-90 mmHg] 18 BRMIN (03/20/14 3:35 PM) 18 BRMIN (03/20/14 11:17 AM) 18 BRMIN (03/20/14 7:34 AM) Respiratory Rate [14-20 BRMIN] 96 bpm (03/20/14 3:35 PM) 89 bpm (03/20/14 11:17 AM) 96 bpm (03/20/14 7:34 AM) Peripheral Pulse Rate [60-100 bpm] 108.636 kg (03/16/14 3:58 PM) Weight 41.11 m2 (03/16/14 3:58 PM) Body Mass Index Problem List Condition Effective Dates Status Health Status Informan t [M]Non-Hodgkin's Active lymphoma(Confirmed) Anemia(Confirmed) Active Fever(Confirmed) Active Hodgkins Resolved lymphoma(Confirmed) Hypertension(Confirm Resolved ed) Shortness of Active breath(Confirmed) Thyroidectomy(Confir Resolved med) Allergies, Adverse Reactions, Alerts Substance Reaction Severity Status vancomycin Active Medications Ambien 5 mg, 1 tab, Route: PO, Drug form: TAB, Bedtime, Dosing Weight 107.727, kg, PRN Insomnia, Start date: 03/16/14 14:17:00, Duration: 30 day, Stop date: 04/15/14 4:16:00 Notes: (Same As: Ambien) Start Date: 03/16/14 Stop Date: 03/20/14 Status: Discontinued atropine 0.5 mg, 5 mL, Route: IVP, Drug form: INJ, PRN, PRN Bradycardia, Start date: 03/04 08/15 17:59:00, Duration: 30 day, Stop date: 04/15/14 16:58:00 Start Date: 03/16/14 Stop Date: 03/20/14 Status: Discontinued Benadryl 25 mg, 1 tab, Route: PO, Drug form: TAB, ONCE, Dosing Weight 108.636, kg, PRN Bl ood Transfusion, Start date: 03/16/14 16:16:00 Start Date: 03/16/14 Stop Date: 03/16/14 Status: Completed Benadryl 25 mg, 0.5 mL, Route: IVP, Drug form: INJ, ONCE, Dosing Weight 108.636, kg, PRN Other -See Comment, Start date: 03/17/14 13:15:00 Notes: (Same as: Benadryl) Start Date: 03/17/14 Stop Date: 03/17/14 Status: Completed bisacodyl 5 mg, 1 tab, Route: PO, Drug form: ECTAB, ONCE, Dosing Weight 108.636, kg, PRN C onstipation, Start date: 03/18/14 19:04:00 Notes: (Same As: Dulcolax, Correctol) (Do Not Crush) "Do Not Crush" Start Date: 03/18/14 Stop Date: 03/20/14 Status: Discontinued dexamethasone 10 mg, 2.5 mL, Route: IV, Drug form: INJ, ONCE, Dosing Weight 108.636, kg, Start date: 03/17/14 13:18:00, Stop date: 03/17/14 13:18:00 Notes: Concentration: 4mg/ml Start Date: 03/17/14 Stop Date: 03/17/14 Status: Completed Dextrose 50% Syringe 25 gm, 50 mL, Route: IVP, Drug Form: INJ, Dosing Weight 107.727, kg, PRN, PRN Bl ood Glucose Results, Start date: 03/16/14 14:30:00, Duration: 30 day, Stop date: 04/15/14 13:29:00 Start Date: 03/16/14 Stop Date: 03/20/14 Status: Discontinued Dextrose 50% Syringe 12.5 gm, 25 mL, Route: IVP, Drug Form: INJ, Dosing Weight 107.727, kg, PRN, PRN Blood Glucose Results, Start date: 03/16/14 14:30:00, Duration: 30 day, Stop charlie e: 04/15/14 13:29:00 Start Date: 03/16/14 Stop Date: 03/20/14 Status: Discontinued docusate sodium 100 mg oral capsule 100 mg, 1 cap, Route: PO, Drug form: CAP, BID, Dosing Weight 108.636, kg, Start date: 03/17/14 20:00:00, Duration: 1 day, Stop date: 03/18/14 17:00:00 Notes: (Same as: Colace) (Do Not Crush) Start Date: 03/17/14 Stop Date: 03/18/14 Status: Completed Dulcolax Laxative 10 mg, 2 tab, Route: PO, Drug form: ECTAB, ONCE, Dosing Weight 108.636, kg, Star t date: 03/18/14 8:08:00, Stop date: 03/18/14 8:08:00 Notes: (Same As: Dulcolax, Correctol) (Do Not Crush) "Do Not Crush" Start Date: 03/18/14 Stop Date: 03/18/14 Status: Completed flumazenil 0.1 mg, 1 mL, Route: IVP, Drug form: INJ, Q5Min, Dosing Weight 108.636, kg, PRN Other -See Comment, Start date: 03/19/14 12:26:00, Duration: 30 day, Stop date: 04/18/14 11:25:00 Notes: (Same as: Romazicon) Start Date: 03/19/14 Stop Date: 03/20/14 Status: Discontinued flumazenil 0.2 mg, 2 mL, Route: IVP, Drug form: INJ, PRN, Dosing Weight 108.636, kg, PRN Ot her -See Comment, Start date: 03/19/14 12:26:00, Duration: 1 doses or times, Sto p date: Limited # of times Notes: (Same as: Romazicon) Start Date: 03/19/14 Stop Date: 03/20/14 Status: Discontinued glucagon 1 mg, Route: IM, Drug form: PDR/INJ, PRN, Dosing Weight 107.727, kg, PRN Blood G lucose Results, Start date: 03/16/14 14:30:00, Duration: 30 day, Stop date: 04/04 07/18 13:29:00 Start Date: 03/16/14 Stop Date: 03/20/14 Status: Discontinued Glucotrol 5 mg, PO, BID, 0 Refill(s) Start Date: 03/16/14 Status: Ordered GoLYTELY 4,000 ml, Route: PO, Drug Form: PDR/REC, Dosing Weight 108.636, kg, ONCE, Start date: 03/17/14 18:45:00, Duration: 1 doses or times, Stop date: 03/17/14 18:45:0 0 Notes: (polyethylene glycol electrolyte solution 4 Liter bottle) (Same as: Gol ytely, Colyte) Start Date: 03/17/14 Stop Date: 03/17/14 Status: Completed Infed + Sodium Chloride 0.9% IV 49 mL 50 mg, 1 mL, Route: IV, Drug form: INJ, ONCE, Dosing Weight 108.636, kg, Start d ate: 03/17/14 13:14:00, Stop date: 03/17/14 13:14:00 Notes: (Same as:DexFerrum) Non-Formulary Start Date: 03/17/14 Stop Date: 03/17/14 Status: Completed Infed + Sodium Chloride 0.9% IV 500 mL 1,950 mg, 39 mL, Route: IV, Drug form: INJ, ONCE, Dosing Weight 108.636, kg, Sta rt date: 03/17/14 13:15:00, Stop date: 03/17/14 13:15:00 Notes: (Same as:DexFerrum) Non-Formulary Start Date: 03/17/14 Stop Date: 03/17/14 Status: Completed influenza virus vaccine, inactivated 0.5 ml, Route: IM, Drug Form: SUSP, Daily, Start date: 03/17/14 9:00:00, Duratio n: 1 doses or times, Stop date: 03/17/14 9:00:00 Notes: (Same as: Fluzone Quadrivalent) Start Date: 03/17/14 Stop Date: 03/17/14 Status: Completed insulin aspart 10 unit, Route: SUB-Q, ONCE, Dosing Weight 108.636, kg, Start date: 03/17/14 21: 46:00, Stop date: 03/17/14 21:46:00 Start Date: 03/17/14 Stop Date: 03/17/14 Status: Completed insulin aspart 4 unit, 0.04 mL, Route: SUB-Q, Drug form: SOLN, Bedtime, Dosing Weight 107.727, kg, PRN Blood Glucose Results, Start date: 03/16/14 14:30:00, Duration: 30 day, Stop date: 04/15/14 14:29:00 Notes: Roll in palms of hands gently; Do not shake vigorously. (Same as: NovoLO G)"single patient use only" Stable for 28 days at room temperature.Expires in _ ____ days from Date Start Date: 03/16/14 Stop Date: 03/20/14 Status: Discontinued insulin aspart 1 unit, 0.01 mL, Route: SUB-Q, Drug form: SOLN, Bedtime, Dosing Weight 107.727, kg, PRN Blood Glucose Results, Start date: 03/16/14 14:30:00, Duration: 30 day, Stop date: 04/15/14 14:29:00 Notes: Roll in palms of hands gently; Do not shake vigorously. (Same as: NovoLO G)"single patient use only" Stable for 28 days at room temperature.Expires in _ ____ days from Date Start Date: 03/16/14 Stop Date: 03/20/14 Status: Discontinued insulin aspart 2 unit, 0.02 mL, Route: SUB-Q, Drug form: SOLN, Bedtime, Dosing Weight 107.727, kg, PRN Blood Glucose Results, Start date: 03/16/14 14:30:00, Duration: 30 day, Stop date: 04/15/14 14:29:00 Notes: Roll in palms of hands gently; Do not shake vigorously. (Same as: NovoLO G)"single patient use only" Stable for 28 days at room temperature.Expires in _ ____ days from Date Start Date: 03/16/14 Stop Date: 03/20/14 Status: Discontinued insulin aspart 1 unit, 0.01 mL, Route: SUB-Q, Drug form: SOLN, TID-Before Meals, Dosing Weight 107.727, kg, PRN Blood Glucose Results, Start date: 03/16/14 14:30:00, Duration: 30 day, Stop date: 04/15/14 14:29:00 Notes: Roll in palms of hands gently; Do not shake vigorously. (Same as: NovoLO G)"single patient use only" Stable for 28 days at room temperature.Expires in _ ____ days from Date Start Date: 03/16/14 Stop Date: 03/20/14 Status: Discontinued insulin aspart 3 unit, 0.03 mL, Route: SUB-Q, Drug form: SOLN, TID-Before Meals, Dosing Weight 107.727, kg, PRN Blood Glucose Results, Start date: 03/16/14 14:30:00, Duration: 30 day, Stop date: 04/15/14 14:29:00 Notes: Roll in palms of hands gently; Do not shake vigorously. (Same as: NovoLO G)"single patient use only" Stable for 28 days at room temperature.Expires in _ ____ days from Date Start Date: 03/16/14 Stop Date: 03/20/14 Status: Discontinued insulin aspart 2 unit, 0.02 mL, Route: SUB-Q, Drug form: SOLN, TID-Before Meals, Dosing Weight 107.727, kg, PRN Blood Glucose Results, Start date: 03/16/14 14:30:00, Duration: 30 day, Stop date: 04/15/14 14:29:00 Notes: Roll in palms of hands gently; Do not shake vigorously. (Same as: NovoLO G)"single patient use only" Stable for 28 days at room temperature.Expires in _ ____ days from Date Start Date: 03/16/14 Stop Date: 03/20/14 Status: Discontinued insulin aspart 4 unit, 0.04 mL, Route: SUB-Q, Drug form: SOLN, TID-Before Meals, Dosing Weight 107.727, kg, PRN Blood Glucose Results, Start date: 03/16/14 14:30:00, Duration: 30 day, Stop date: 04/15/14 14:29:00 Notes: Roll in palms of hands gently; Do not shake vigorously. (Same as: NovoLO G)"single patient use only" Stable for 28 days at room temperature.Expires in _ ____ days from Date Start Date: 03/16/14 Stop Date: 03/20/14 Status: Discontinued insulin aspart 5 unit, 0.05 mL, Route: SUB-Q, Drug form: SOLN, TID-Before Meals, Dosing Weight 107.727, kg, PRN Blood Glucose Results, Start date: 03/16/14 14:30:00, Duration: 30 day, Stop date: 04/15/14 14:29:00 Notes: Roll in palms of hands gently; Do not shake vigorously. (Same as: NovoLO G)"single patient use only" Stable for 28 days at room temperature.Expires in _ ____ days from Date Start Date: 03/16/14 Stop Date: 03/20/14 Status: Discontinued insulin aspart 3 unit, 0.03 mL, Route: SUB-Q, Drug form: SOLN, Bedtime, Dosing Weight 107.727, kg, PRN Blood Glucose Results, Start date: 03/16/14 14:30:00, Duration: 30 day, Stop date: 04/15/14 14:29:00 Notes: Roll in palms of hands gently; Do not shake vigorously. (Same as: NovoLO G)"single patient use only" Stable for 28 days at room temperature.Expires in _ ____ days from Date Start Date: 03/16/14 Stop Date: 03/20/14 Status: Discontinued Januvia 100 mg oral tablet 100 mg = 1 tab, PO, Daily, # 30 tab, 1 Refill(s) Start Date: 03/20/14 Status: Ordered levothyroxine 200 microgram, 1 tab, Route: PO, Drug form: TAB, [id number], Dosing Weight 108.636, kg, Start date: 03/18/14 6:30:00, Duration: 30 day, Stop date: 04/16/14 6:30:00 Notes: Take 1 hour before or 2 hours after meal; Enteral feeds may interefere wi th the absorption of this medication. (Same as: Levothroid) Start Date: 03/18/14 Stop Date: 03/20/14 Status: Discontinued levothyroxine 200 microgram, PO, Daily, 0 Refill(s) Start Date: 03/16/14 Status: Ordered Lovenox 40 mg, 0.4 mL, Route: SUB-Q, Drug form: INJ, [id number], Dosing Weight 107.727, kg , Start date: 03/16/14 15:00:00, Duration: 30 day, Stop date: 04/14/14 15:00:00 Notes: (Same as: Lovenox) Start Date: 03/16/14 Stop Date: 03/20/14 Status: Discontinued magnesium citrate 300 ml, Route: PO, Drug Form: LIQ, Dosing Weight 108.636, kg, ONCE, Start date: 03/18/14 19:02:00, Stop date: 03/18/14 19:02:00 Notes: (Same as: Citrate of Magnesia) Start Date: 03/18/14 Stop Date: 03/19/14 Status: Completed magnesium citrate 300 ml, Route: PO, Drug Form: LIQ, Dosing Weight 108.636, kg, ONCE, Start date: 03/18/14 8:08:00, Stop date: 03/18/14 8:08:00 Notes: (Same as: Citrate of Magnesia) Start Date: 03/18/14 Stop Date: 03/18/14 Status: Completed morphine Sulfate 4 mg, 2 mL, Route: IVP, Drug form: INJ, Q4H, Dosing Weight 107.727, kg, PRN Pain , Start date: 03/16/14 14:17:00, Duration: 30 day, Stop date: 04/15/14 14:16:00 Notes: (Same as:MORPhine Sulfate) Start Date: 03/16/14 Stop Date: 03/20/14 Status: Discontinued naloxone 0.1 mg, 0.25 mL, Route: IVP, Drug form: INJ, Q2MIN, Dosing Weight 108.636, kg, P RN Narcotic Reversal, Start date: 03/19/14 12:26:00, Duration: 4 doses or times, Stop date: Limited # of times Notes: Same as Narcan Start Date: 03/19/14 Stop Date: 03/20/14 Status: Discontinued nitroglycerin 0.4 mg sublingual tablet 0.4 mg, 1 tab, Route: SL, Drug form: TAB, Q5Min, PRN Chest Pain, Start date: 17:59:00, Duration: 30 day, Stop date: 04/15/14 16:58:00 Notes: (Same as:Nitroquick, Nitrostat)"Do Not Crush" Sublingual tablet Start Date: 03/16/14 Stop Date: 03/20/14 Status: Discontinued Nitrostat 0.4 mg sublingual tablet 0.4 mg, 1 tab, Route: SL, Drug form: TAB, Q5Min, Dosing Weight 107.727, kg, PRN Chest Pain, Start date: 03/16/14 14:18:00, Duration: 3 doses or times, Stop date : Limited # of times Notes: (Same as:Nitroquick, Nitrostat)"Do Not Crush" Sublingual tablet Start Date: 03/16/14 Stop Date: 03/20/14 Status: Discontinued [place]ida 5/325 oral tablet 1 tab, Route: PO, Drug Form: TAB, Dosing Weight 107.727, kg, Q4H, PRN Pain Score 4-6, Start date: 03/16/14 14:17:00, Duration: 30 day, Stop date: 04/15/14 14:16 :00 Notes: (Same as: [place]ida 325/5) Do not exceed 4gm/day of acetaminophen. Start Date: 03/16/14 Stop Date: 03/20/14 Status: Discontinued Pepcid 20 mg, 2 mL, Route: IV, Drug form: INJ, ONCE, Dosing Weight 108.636, kg, Start d ate: 03/17/14 13:17:00, Stop date: 03/17/14 13:17:00 Notes: (Same as: Pepcid)Can be dilute in 5-10cc NS IVP: Slow IV push over at le ast 2 minutes. Start Date: 03/17/14 Stop Date: 03/17/14 Status: Completed pneumococcal 23-valent vaccine 0.5 ml, Route: IM, Drug Form: INJ, Daily, Start date: 03/17/14 9:00:00, Duration : 1 doses or times, Stop date: 03/17/14 9:00:00 Notes: (Same as: Pneumovax 23) Refrigerate Start Date: 03/17/14 Stop Date: 03/17/14 Status: Completed Protonix 40 mg oral enteric coated tablet 40 mg = 1 tab, PO, BID, # 60 tab, 1 Refill(s) Start Date: 03/20/14 Status: Ordered Sodium Chloride 0.9% IV 500 mL 500 mL, Rate: 25 ml/hr, Infuse over: 20 hr, Route: IV, Dosing Weight 108.636 kg, Total Volume: 500, Start date: 03/18/14 13:46:00, Duration: 1 day, Stop date: 1 13:45:00 Start Date: 03/18/14 Stop Date: 03/19/14 Status: Completed Tylenol 650 mg, 2 tab, Route: PO, Drug form: TAB, Q6H, Dosing Weight 107.727, kg, PRN Pa in, Start date: 03/16/14 14:17:00, Duration: 30 day, Stop date: 04/15/14 14:16:0 0 Notes: Do not exceed 4 gm/day. (Same as: Tylenol) Start Date: 03/16/14 Stop Date: 03/20/14 Status: Discontinued Zofran 4 mg, 2 mL, Route: IVP, Drug form: INJ, Q4H, Dosing Weight 107.727, kg, PRN Naus ea, Start date: 03/16/14 14:17:00, Duration: 30 day, Stop date: 04/15/14 14:16:0 0 Notes: (Same as: Zofran) Start Date: 03/16/14 Stop Date: 03/20/14 Status: Discontinued Zofran 4 mg, 2 mL, Route: IV, Drug form: INJ, ONCALL, Dosing Weight 108.636, kg, PRN Bl ood Transfusion, Start date: 03/16/14 16:23:00, Duration: 1 doses or times, Stop date: Limited # of times Notes: (Same as: Zofran) Start Date: 03/16/14 Stop Date: 03/16/14 Status: Completed Results BLOOD BANK RESULTS 1 2 3 Most recent to oldest [Reference Range]: O NEG *Unknown* (03/19/14 10:23 PM) O NEG *Unknown* (03/16/14 2:45 PM) ABO/Rh Negative (03/19/14 10:23 PM) Negative (03/16/14 2:45 PM) Antibody Scrn Product available 1 (03/19/14 8:45 PM) Product available 2 (03/16/14 6:55 PM) Product available 3 (03/16/14 2:24 PM) RBC product 1Result Comment: 03/20/2014 00:12 [id number] notified braden pace 03/20/2014 00:11/diane 2Result Comment: 03/16/2014 19:08 [id number] CALLED TO KELLEY 03/16/2014 19:08 gw 3Result Comment: 03/16/2014 17:03 [id number] called to Kelley 03/16/2014 17:03 GW ELECTROLYTES 1 2 3 Most recent to oldest [Reference Range]: 138 mEq/L (03/20/14 3:39 AM) 137 mEq/L (03/19/14 3:17 AM) 136 mEq/L (03/18/14 3:34 AM) Sodium Lvl [135-145 mEq/L] 3.8 mEq/L (03/20/14 3:39 AM) 3.6 mEq/L (03/19/14 3:17 AM) 4.6 mEq/L (03/18/14 3:34 AM) Potassium Lvl [3.5-5.1 mEq/L] 102 mEq/L (03/20/14 3:39 AM) 100 mEq/L (03/19/14 3:17 AM) 100 mEq/L (03/18/14 3:34 AM) Chloride Lvl [95-109 mEq/L] 25 mEq/L (03/20/14 3:39 AM) 27 mEq/L (03/19/14 3:17 AM) 23 mEq/L *LOW* (03/18/14 3:34 AM) CO2 [24-32 mEq/L] 14.8 mEq/L (03/20/14 3:39 AM) 13.6 mEq/L (03/19/14 3:17 AM) 17.6 mEq/L (03/18/14 3:34 AM) AGAP [10.0-20.0 mEq/L] CHEM PANEL 1 2 3 Most recent to oldest [Reference Range]: 0.9 mg/dL (03/20/14 3:39 AM) 0.9 mg/dL (03/19/14 3:17 AM) 0.9 mg/dL (03/18/14 3:34 AM) Creatinine Lvl [0.5-1.4 mg/dL] 83 mL/min/1.73m2 4 *NA* (03/20/14 3:39 AM) 83 mL/min/1.73m2 5 *NA* (03/19/14 3:17 AM) 83 mL/min/1.73m2 6 *NA* (03/18/14 3:34 AM) eGFR 15 mg/dL (03/20/14 3:39 AM) 10 mg/dL (03/19/14 3:17 AM) 9 mg/dL (03/18/14 3:34 AM) BUN [7-22 mg/dL] 209 mg/dL 7 *HI* (03/20/14 3:39 AM) 164 mg/dL 8 *HI* (03/19/14 3:17 AM) 310 mg/dL 9 *HI* (03/18/14 3:34 AM) Glucose Lvl [70-99 mg/dL] 7.3 g/dL (03/20/14 3:39 AM) 7.4 g/dL (03/19/14 3:17 AM) 7.3 g/dL (03/18/14 3:34 AM) Total Protein [6.4-8.4 g/dL] 3.1 g/dL *LOW* (03/20/14 3:39 AM) 3.5 g/dL (03/19/14 3:17 AM) 3.4 g/dL *LOW* (03/18/14 3:34 AM) Albumin Lvl [3.5-5.0 g/dL] 4.2 g/dL *HI* (03/20/14 3:39 AM) 3.9 g/dL (03/19/14 3:17 AM) 3.9 g/dL (03/18/14 3:34 AM) Globulin [2.0-4.0 g/dL] 0.7 (03/20/14 3:39 AM) 0.9 (03/19/14 3:17 AM) 0.9 (03/18/14 3:34 AM) A/G Ratio [0.7-1.6] 8.2 mg/dL *LOW* (03/20/14 3:39 AM) 8.9 mg/dL (03/19/14 3:17 AM) 8.5 mg/dL (03/18/14 3:34 AM) Calcium Lvl [8.5-10.5 mg/dL] 92 unit/L 10 *NA* (03/20/14 3:39 AM) 72 unit/L 11 *HI* (03/19/14 3:17 AM) 45 unit/L 12 *NA* (03/18/14 3:34 AM) ALT [0-65 unit/L] 128 unit/L *HI* (03/20/14 3:39 AM) 172 unit/L 13 *HI* (03/19/14 3:17 AM) 49 unit/L *NA* (03/18/14 3:34 AM) AST [0-37 unit/L] 130 unit/L (03/20/14 3:39 AM) 125 unit/L (03/19/14 3:17 AM) 139 unit/L *HI* (03/18/14 3:34 AM) Alk Phos [39-136 unit/L] 0.2 mg/dL (03/20/14 3:39 AM) 0.3 mg/dL (03/19/14 3:17 AM) 0.3 mg/dL (03/18/14 3:34 AM) Bili Total [0.2-1.3 mg/dL] <0.1 mg/dL (03/20/14 3:39 AM) <0.1 mg/dL (03/19/14 3:17 AM) <0.1 mg/dL (03/18/14 3:34 AM) Bili Direct [0.0-0.3 mg/dL] >0.1 mg/dL (03/20/14 3:39 AM) >0.2 mg/dL (03/19/14 3:17 AM) >0.2 mg/dL (03/18/14 3:34 AM) Bili Indirect [0.0-1.0 mg/dL] 2.2 mMol/L (03/20/14 12:14 PM) 2.3 mMol/L *HI* (03/19/14 10:23 PM) Lactic Acid Lvl [0.5-2.2 mMol/L] 4Result Comment: The eGFR is calculated using the [...] be mul tiplied by the estimated BMI. 5Result Comment: The eGFR is calculated using the [...] be mul tiplied by the estimated BMI. 6Result Comment: The eGFR is calculated using the [...] be mul tiplied by the estimated BMI. 7Interpretive Data: Adult reference range values reflect the clinical guidelines of the [place] [employer]. 8Interpretive Data: Adult reference range values reflect the clinical guidelines of the [place] [employer]. 9Interpretive Data: Adult reference range values reflect the clinical guidelines of the [place] [employer]. 10Result Comment: called Jae aaron to inform of correction on alt at 03/20/2014 04:45 by joanna 11Result Comment: Corrected results called to Krista Barkley at 03/19/2014 04:57 by YAHAIRA. 12Result Comment: Spoke to Krista Barkley 03/18/2014 06:15 AD 13Result Comment: Corrected results called to Krista Barkley at 03/19/2014 04:56 by YAHAIRA. CARDIAC ENZYMES 1 2 3 Most recent to oldest [Reference Range]: 1.5 ng/mL (03/16/14 8:27 PM) 1.9 ng/mL (03/16/14 2:45 PM) CK MB [0.5-3.6 ng/mL] <0.02 ng/mL (03/16/14 8:27 PM) <0.02 ng/mL (03/16/14 2:45 PM) Troponin-I [0.00-0.40 ng/mL] LIPIDS 1 2 3 Most recent to oldest [Reference Range]: 5.76 (03/17/14 7:04 AM) CHD Risk [3.90-5.80] 167 mg/dL (03/17/14 7:04 AM) Chol [<=199 mg/dL] 138 mg/dL (03/17/14 7:04 AM) Trig [<=149 mg/dL] 29 mg/dL *LOW* (03/17/14 7:04 AM) HDL [>=61 mg/dL] 110 mg/dL *HI* (03/17/14 7:04 AM) LDL (Calculated) [<=99 mg/dL] 28 *NA* (03/17/14 7:04 AM) VLDL SPECIAL CHEMISTRY 1 2 3 Most recent to oldest [Reference Range]: 8.4 % *HI* (03/17/14 7:04 AM) Hgb A1C [<=5.6 %] ANEMIA STUDY 1 2 3 Most recent to oldest [Reference Range]: 11 ug/dl *LOW* (03/16/14 2:45 PM) Iron [30-160 ug/dl] 4 ng/mL *LOW* (03/16/14 2:45 PM) Ferritin Lvl [5-204 ng/mL] 2 % *LOW* (03/16/14 2:45 PM) % Satur Fe [12-57 %] 484 ug/dl *HI* (03/16/14 2:45 PM) UIBC [110-370 ug/dl] 892 pg/mL (03/16/14 2:45 PM) Vitamin B12 Lvl [254-1320 pg/mL] 11.1 ng/mL (03/16/14 2:45 PM) Folate Lvl [>=3.0 ng/mL] 495 ug/dl *HI* (03/16/14 2:45 PM) TIBC [228-428 ug/dl] THYROID PANEL 1 2 3 Most recent to oldest [Reference Range]: 1.14 ng/dL (03/16/14 2:45 PM) T4 Free [0.76-1.46 ng/dL] 14.700 uIU/mL *HI* (03/16/14 2:45 PM) TSH [0.360-3.740 uIU/mL] URINE CHEM 1 2 3 Most recent to oldest [Reference Range]: Negative (03/18/14 1:52 PM) U Preg [Negative] HEMATOLOGY 1 2 3 Most recent to oldest [Reference Range]: 14.6 K/CMM *HI* (03/20/14 12:14 PM) 15.2 K/CMM *HI* (03/20/14 3:39 AM) 16.4 K/CMM *HI* (03/19/14 3:17 AM) WBC [3.7-10.4 K/CMM] 4.92 M/CMM (03/20/14 12:14 PM) 4.82 M/CMM (03/20/14 3:39 AM) 4.69 M/CMM (03/19/14 3:17 AM) RBC [4.20-5.40 M/CMM] 11.2 g/dL *LOW* (03/20/14 12:14 PM) 11.1 g/dL *LOW* (03/20/14 3:39 AM) 10.6 g/dL *LOW* (03/19/14 3:17 AM) Hgb [12.0-16.0 g/dL] 37.4 % (03/20/14 12:14 PM) 36.6 % (03/20/14 3:39 AM) 35.0 % *LOW* (03/19/14 3:17 AM) Hct [36.0-48.0 %] 76.0 fL *LOW* (03/20/14 12:14 PM) 76.1 fL *LOW* (03/20/14 3:39 AM) 74.6 fL *LOW* (03/19/14 3:17 AM) MCV [80.0-98.0 fL] 22.9 pg *LOW* (03/20/14 12:14 PM) 23.1 pg *LOW* (03/20/14 3:39 AM) 22.7 pg *LOW* (03/19/14 3:17 AM) MCH [27.0-31.0 pg] 30.1 g/dL *LOW* (03/20/14 12:14 PM) 30.4 g/dL *LOW* (03/20/14 3:39 AM) 30.4 g/dL *LOW* (03/19/14 3:17 AM) MCHC [32.0-36.0 g/dL] 24.2 % *HI* (03/20/14 12:14 PM) 23.4 % *HI* (03/20/14 3:39 AM) 23.2 % *HI* (03/19/14 3:17 AM) RDW [11.5-14.5 %] 583 K/CMM *HI* (03/20/14 12:14 PM) 596 K/CMM *HI* (03/20/14 3:39 AM) 625 K/CMM *HI* (03/19/14 3:17 AM) Platelet [133-450 K/CMM] 8.0 fL (03/20/14 12:14 PM) 7.9 fL (03/20/14 3:39 AM) 8.0 fL (03/19/14 3:17 AM) MPV [7.4-10.4 fL] 71.3 % (03/20/14 12:14 PM) 68.3 % (03/20/14 3:39 AM) 74.9 % (03/19/14 3:17 AM) Segs [45.0-75.0 %] 17.9 % *LOW* (03/20/14 12:14 PM) 20.3 % (03/20/14 3:39 AM) 17.9 % *LOW* (03/19/14 3:17 AM) Lymphocytes [20.0-40.0 %] 7.2 % (03/20/14 12:14 PM) 8.1 % (03/20/14 3:39 AM) 5.5 % (03/19/14 3:17 AM) Monocytes [2.0-12.0 %] 2.2 % (03/20/14 12:14 PM) 2.3 % (03/20/14 3:39 AM) 1.0 % (03/19/14 3:17 AM) Eosinophils [0.0-4.0 %] 1.4 % *HI* (03/20/14 12:14 PM) 1.0 % (03/20/14 3:39 AM) 0.7 % (03/19/14 3:17 AM) Basophils [0.0-1.0 %] 10.4 K/CMM *HI* (03/20/14 12:14 PM) 10.4 K/CMM *HI* (03/20/14 3:39 AM) 12.3 K/CMM *HI* (03/19/14 3:17 AM) Segs-Bands # [1.5-8.1 K/CMM] 2.6 K/CMM (03/20/14 12:14 PM) 3.1 K/CMM (03/20/14 3:39 AM) 2.9 K/CMM (03/19/14 3:17 AM) Lymphocytes # [1.0-5.5 K/CMM] 1.1 K/CMM *HI* (03/20/14 12:14 PM) 1.2 K/CMM *HI* (03/20/14 3:39 AM) 0.9 K/CMM *HI* (03/19/14 3:17 AM) Monocytes # [0.0-0.8 K/CMM] 0.3 K/CMM (03/20/14 12:14 PM) 0.3 K/CMM (03/20/14 3:39 AM) 0.2 K/CMM (03/19/14 3:17 AM) Eosinophils # [0.0-0.5 K/CMM] 0.2 K/CMM (03/20/14 12:14 PM) 0.1 K/CMM (03/20/14 3:39 AM) 0.1 K/CMM (03/19/14 3:17 AM) Basophils # [0.0-0.2 K/CMM] Normal (03/19/14 3:17 AM) Normal (03/18/14 3:34 AM) RBC Morph 1+ *ABN* (03/20/14 12:14 PM) 1+ *ABN* (03/20/14 3:39 AM) 1+ *ABN* (03/19/14 3:17 AM) Microcyte [None Seen] Normal (03/19/14 3:17 AM) Normal (03/18/14 3:34 AM) Plt Morph 2.8 % *HI* (03/16/14 2:45 PM) Retic Auto [0.5-1.5 %] Medications Administered During Your Visit No data available for this section Immunizations Vaccine Date Refusal Reason influenza virus vaccine, inactivated 03/17/14 P atient Refuses pneumococcal 23-valent vaccine 03/17/14 Patient Refuses Procedures Procedure Type Body Site Date of Procedure Related Diag nosis Total thyroidectomy 04/18/13 12:00 AM Social History Social History Type Response Substance Abuse Use: None Alcohol Use: Current, Type: Beer, T ype: Wine, Frequency: 1-2 times per month Smoking Status Never smoker, Exposure to T obacco Smoke None, Cigarette Smoking Last 365 Days No, Reg Smoking Cessation Counseli ng No Assessment and Plan Extracted from: Title: Clinical Document Author: Kareen Brandt MD Date: 03/20/14 Progress Note - Daily Gastroenterology [facility] SUBJECTIVE: feels much better, no complaints, no [...] (last 24 hrs) Last Charted Minimum Maximum Temp98.2 (MAR 20 15:35)97.8 (MAR 19 16:00)98.5 (MAR 19 19:47) Heart Rate96 (MAR 20 15:35)85 (MAR 19 16:00)96 (MAR 19 19:47) Resp Rate 18 (MAR 20 15:35)16 (MAR 19 16:00)18 (MAR 20 07:34) LPE295 (MAR 20 15:35)106 (MAR 20 07:34)H 145 (MAR 16 16:00) DBP80 (MAR 20 15:35)67 (MAR 20 07:34)85 (MAR 16 16:00) Input/Output RecordInOutBal 10/1724hr Tot 0 0 0 10/1624hr Tot 500 0 500 Scheduled Meds (2):enoxaparin (Lovenox), levothyroxine Unscheduled Meds: None PRN Meds (23):Dextrose 50% in Water IV (Dextrose 50% Syringe), Dextrose 50% in Water IV (Dextrose 50% Syringe), acetaminophen-hydrocodone ([place] 5/325 oral tablet), acetaminophen (Tylenol), atropine, flumazenil, flumazenil, glucagon, insulin aspart, insulin aspart, insulin aspart, insulin aspart, insulin aspart, insulin aspart, insulin aspart, insulin aspart, insulin aspart, morphine Sulfate, naloxone, nitroglycerin (Nitrostat 0.4 mg sublingual tablet), nitroglycerin (nitroglycerin 0.4 mg sublingual tablet), ondansetron (Zofran), zolpidem (Ambien) One Time Meds: None Continuous Infusions: None Labs (Last four charted values) WBC H 14.6(MAR 17)H 15.2(MAR 17)H 16.4(OCT 16)H 14.5(OCT 15) Hgb L 11.2(OCT 17)L 11.1(OCT 17)L 10.6(OCT 16)L 11.2(OCT 15) Hct 37.4(OCT 17)36.6(OCT 17)L 35.0(OCT 16)L 35.5(OCT 15) Plt H 583(OCT 17)H 596(OCT 17)H 625(OCT 16)H 653(OCT 15) Na 138(OCT 17)137(OCT 16)136(OCT 15)136(OCT 14) K 3.8(OCT 17)3.6(OCT 16)4.6(OCT 15)4.6(OCT 14) CO2 25(OCT 17)27(OCT 16)L 23(OCT 15)27(OCT 14) Cl 102(OCT 17)100(OCT 16)100(OCT 15)102(OCT 14) Cr 0.9(OCT 17)0.9(MAR 16)0.9(MAR 15)0.9(MAR 14) BUN 15(MAR 20)10(MAR 16)9(MAR 15)7(MAR 14) Glucose Random H 209(MAR 20)H 164(MAR 16)H 310(MAR 15)H 175(MAR 14) Ca L 8.2(MAR 20)8.9(MAR 16)8.5(MAR 15)L 8.2(MAR 17) Troponin <0.02(MAR 16)<0.02(MAR 16) CK MB 1.5(MAR 16)1.9(MAR 16) Physical Examination: General: nad, pleasant HEENT: perrl [...]
--- OUTSIDE RECORDS SUMMARY | 2020-01-09 19:52 | XMS REPORT | Summary of Care ---
Author Organization Unknown Address Unknown Phone Unavailable Encounter ARLEY Montemayor(ELMER) [id number] Date(s): 08/28/14 - 08/28/14 [facility] [address] [place] [address]- Discharge Disposition: Home Physician Attending: Physician, Non Associated MD Physician Admitting: Physician, Non Associated MD Vital Signs No data available for this section Problem List Condition Effective Dates Status Health Status Informan t [M]Non-Hodgkin's Active lymphoma(Confirmed) Anemia(Confirmed) Active Fever(Confirmed) Active Hodgkins Resolved lymphoma(Confirmed) Hypertension(Confirm Resolved ed) Shortness of Active breath(Confirmed) Thyroidectomy(Confir Resolved med) Allergies, Adverse Reactions, Alerts Substance Reaction Severity Status vancomycin Active Medications No data available for this section Results No data available for this section Immunizations Vaccine Date Refusal Reason influenza virus vaccine, inactivated 03/17/14 P atient Refuses pneumococcal 23-valent vaccine 03/17/14 Patient Refuses Procedures Procedure Date Related Diagnosis Body Site Total thyroidectomy 04/18/13 section Tubal ligation Social History Social History Type Response Substance Abuse Use: None. Alcohol Current, Type Beer, Wine. Frequency: 1-2 times per month. Smoking Status Never smoker; Exposure to T obacco Smoke None; Cigarette Smoking Last 365 Days No; Reg Smoking Cessation Counseli ng No Assessment and Plan No data available for this section
--- OUTSIDE RECORDS SUMMARY | 2020-01-09 19:52 | XMS REPORT | CCD ---
Author Author Auto CECILIO Flores [facility] Address Unknown Phone Unavailable Care Team Providers Care Weave Defect Charting Clerk Name Role Phone Darin Hoover RP Allergies, Adverse Reactions, Alerts Substance Reaction Status vancomycin Active Problem List Condition Effective Dates Status [M]Non-Hodgkin's lymphoma Active Fever Active Hodgkins lymphoma Resolved Hypertension Resolved Shortness of breath Active Thyroidectomy Resolved Medications Medication Instructions Start Date End Date Status Lopressor 50 mg, 1 tab, Route: PO, Drug form: 09/26/2012 Discontinued TAB, Q12H, Priority: STAT, Start date: 09/26/12 22:55:00, Duration: 30 day, Stop date: 10/26/12 21:00:00 Sodium Chloride 1,000 mL, Rate: 100 ml/hr, Infuse 09/26/2012 0 09/27/2012 Completed 0.45% IV 1,000 mL over: 10 hr, Route: IV, kg, Total Volume: 1,000, Start date: 09/26/12 22:53:00, Duration: 2 doses or times, Stop date: 09/27/12 18:52:00 Levaquin 500 mg, 2 tab, Route: PO, Drug 09/27/2012 09/28/19 13 Canceled form: TAB, Daily, Start date: 09/27/12 21:00:00, Duration: 30 day, Stop date: 10/26/12 21:00:00 Zofran 4 mg, 2 mL, Route: IVP, Drug form: 09/26/201209/03 Discontinued INJ, Q2H, PRN Nausea, Start date: 09/26/12 1:42:00, Duration: 30 day, Stop date: 10/26/12 1:41:00 Sodium Chloride 0.9% IV, 0 ml/hr, ONCALL, Start date: 09/26/2012 09/26/2012 Completed IV 09/26/12 3:00:00, Duration: 1, 250 ml Levothroid 175 microgram, 1 tab, Route: PO, 09/26/20122012 Discontinued Drug form: TAB, Q630AM, Start date: 09/26/12 6:30:00, Duration: 30 day, Stop date: 10/25/12 6:30:00 metoprolol 50 mg, 1 tab, Route: PO, Drug form: 09/26/2012 Discontinued ERTAB, Daily, Start date: 09/26/12 9:00:00, Duration: 30 day, Stop date: 10/25/12 9:00:00 K-Dur 20 40 mEq, 2 tab, Route: PO, Drug 09/25/2012 09/27/19 Completed form: ERTAB, PRN, PRN Blood Transfusion, Start date: 09/25/12 19:24:00, Duration: 1 day, Stop date: 09/26/12 19:23:00 Lasix 10 mg, 1 mL, Route: IV, Drug form: 09/25/201209/03 Completed INJ, PRN, PRN Blood Transfusion, Start date: 09/25/12 19:23:00, Duration: 1 day, Stop date: 09/26/12 19:22:00 Sodium Chloride 1,000 mL, Rate: 100 ml/hr, Infuse 09/25/2012 0 09/26/2012 Completed 0.45% IV 1,000 mL over: 10 hr, Route: IV, kg, Total Volume: 1,000, Start date: 09/25/12 19:23:00, Duration: 2 doses or times, Stop date: 09/26/12 15:22:00 atropine 0.5 mg, 5 mL, Route: IVP, Drug 09/25/2012 09/28/19 Discontinued form: INJ, PRN, PRN Bradycardia, Start date: 09/25/12 19:21:00, Duration: 30 day, Stop date: 10/25/12 19:20:00 Tylenol 650 mg, 2 tab, Route: PO, Drug 09/26/2012 09/28/19 Discontinued form: TAB, Q6H, PRN Headache, Start date: 09/26/12 20:45:00, Duration: 30 day, Stop date: 10/26/12 20:44:00 Vital Signs Most recent to oldest [Reference Range]: 1 2 3 Height 162.56 cm (09/25/2012 19:18:00) Temperature Oral [96.4-99.1 DegF] 98.1 DegF (09/27/2012 15:55:00) 98.3 DegF (09/27/2012 12:05:00) 99.1 DegF (09/27/2012 07:46:00) Systolic Blood Pressure [90-140 mmHg] 131 mmHg (09/27/2012 15:55:00) 138 mmHg (09/27/2012 12:05:00) 101 mmHg (09/27/2012 07:46:00) Diastolic Blood Pressure [60-90 mmHg] 84 mmHg (09/27/2012 15:55:00) 90 mmHg (09/27/2012 12:05:00) 62 mmHg (09/27/2012 07:46:00) Respiratory Rate [14-20 BRMIN] 20 BRMIN (09/27/2012 15:55:00) 20 BRMIN (09/27/2012 12:05:00) 20 BRMIN (09/27/2012 07:46:00) Peripheral Pulse Rate [60-100 bpm] 76 bpm (09/27/2012 15:55:00) 77 bpm (09/27/2012 12:05:00) 69 bpm (09/27/2012 07:46:00) Weight 107.727 kg (09/25/2012 19:18:00) Results BLOOD BANK RESULTS Most recent to [Reference Range]: 1 2 3 ABO/Rh O NEG *Unknown* (09/25/2012 21:48:00) Antibody Scrn Negative (09/25/2012 21:48:00) RBC product Product available 1 (09/25/2012 21:15:00) 1Result Comment: 09/26/2012 00:53 [id number] CALLED TO GAING AT 09/26/2012 0:53 BY JV CHEMISTRY Most recent to oldest [Reference Range]: 1 2 3 Sodium Lvl [135-145 mEq/L] 136 mEq/L (09/27/2012 04:22:00) 136 mEq/L (09/26/2012 10:06:00) 140 mEq/L (09/25/2012 20:05:00) Potassium Lvl [3.5-5.1 mEq/L] 3.8 mEq/L (09/27/2012 04:22:00) 4.1 mEq/L (09/26/2012 10:06:00) 3.9 mEq/L (09/25/2012 20:05:00) Chloride Lvl [95-109 mEq/L] 101 mEq/L (09/27/2012 04:22:00) 98 mEq/L (09/26/2012 10:06:00) 102 mEq/L (09/25/2012 20:05:00) CO2 [24-32 mEq/L] 26 mEq/L (09/27/2012 04:22:00) 28 mEq/L (09/26/2012 10:06:00) 31 mEq/L (09/25/2012 20:05:00) AGAP [10.0-20.0 mEq/L] 12.8 mEq/L (09/27/2012 04:22:00) 14.1 mEq/L (09/26/2012 10:06:00) 10.9 mEq/L (09/25/2012 20:05:00) Creatinine Lvl [0.5-1.4 mg/dL] 1.1 mg/dL (09/27/2012 04:22:00) 1.2 mg/dL (09/26/2012 10:06:00) 1.0 mg/dL (09/25/2012 20:05:00) eGFR 66 mL/min/1.73m2 2 *NA* (09/27/2012 04:22:00) 59 mL/min/1.73m2 3 *NA* (09/26/2012 10:06:00) 74 mL/min/1.73m2 4 *NA* (09/25/2012 20:05:00) BUN [7-22 mg/dL] 14 mg/dL (09/27/2012 04:22:00) 10 mg/dL (09/26/2012 10:06:00) 12 mg/dL (09/25/2012 20:05:00) B/C Ratio [6-25] 12 (09/25/2012 20:05:00) Glucose Lvl [70-99 mg/dL] 145 mg/dL 5 *HI* (09/27/2012 04:22:00) 141 mg/dL 6 *HI* (09/26/2012 10:06:00) 128 mg/dL 7 *HI* (09/25/2012 20:05:00) Total Protein [6.4-8.4 g/dL] 8.0 g/dL (09/25/2012 20:05:00) Albumin Lvl [3.5-5.0 g/dL] 3.9 g/dL (09/25/2012 20:05:00) Globulin [2.0-4.0 g/dL] 4.1 g/dL *HI* (09/25/2012 20:05:00) A/G Ratio [0.7-1.6] 1.0 (09/25/2012 20:05:00) Calcium Lvl [8.5-10.5 mg/dL] 8.2 mg/dL *LOW* (09/27/2012 04:22:00) 9.1 mg/dL (09/26/2012 10:06:00) 8.5 mg/dL (09/25/2012 20:05:00) Phosphorus [2.5-4.5 mg/dL] 4.2 mg/dL (09/26/2012 10:06:00) Magnesium Lvl [1.8-2.4 mg/dL] 1.5 mg/dL *LOW* (09/26/2012 10:06:00) ALT [0-65 unit/L] 60 unit/L (09/25/2012 20:05:00) AST [0-37 unit/L] 63 unit/L *HI* (09/25/2012 20:05:00) Alk Phos [39-136 unit/L] 132 unit/L (09/25/2012 20:05:00) Bili Total [0.2-1.3 mg/dL] 0.2 mg/dL (09/25/2012 20:05:00) Total CK [12-191 unit/L] 784 unit/L *HI* (09/27/2012 04:22:00) 669 unit/L *HI* (09/26/2012 10:06:00) 596 unit/L *HI* (09/26/2012 01:29:00) CK MB [0.5-3.6 ng/mL] 4.7 ng/mL *HI* (09/27/2012 04:22:00) 5.1 ng/mL *HI* (09/26/2012 10:06:00) 5.1 ng/mL *HI* (09/26/2012 01:29:00) CK MB Index [0.0-2.5] 0.6 (09/27/2012 04:22:00) 0.8 (09/26/2012 10:06:00) 0.9 (09/26/2012 01:29:00) Troponin-I [0.00-0.40 ng/mL] <0.02 ng/mL (09/27/2012 04:22:00) <0.02 ng/mL (09/26/2012 10:06:00) <0.02 ng/mL (09/26/2012 01:29:00) CHD Risk [3.90-5.80] 3.90 (09/27/2012 04:22:00) 4.58 (09/25/2012 20:05:00) Chol [120-200 mg/dL] 195 mg/dL (09/27/2012 04:22:00) 206 mg/dL *HI* (09/25/2012 20:05:00) Trig [0-200 mg/dL] 117 mg/dL (09/27/2012 04:22:00) 143 mg/dL (09/25/2012 20:05:00) HDL [>=35 mg/dL] 50 mg/dL (09/27/2012 04:22:00) 45 mg/dL (09/25/2012 20:05:00) LDL [0-129 mg/dL] 122 mg/dL (09/27/2012 04:22:00) 132 mg/dL *HI* (09/25/2012 20:05:00) Hgb A1C 7.2 % 8 *NA* (09/25/2012 20:05:00) Iron [30-160 ug/dl] 16 ug/dl *LOW* (09/25/2012 20:04:00) Ferritin Lvl [5-204 ng/mL] 4 ng/mL *LOW* (09/25/2012:04:00) % Satur Fe [12-57 %] 3 % *LOW* (09/25/2012:04:00) UIBC [110-370 ug/dl] 593 ug/dl *HI* (09/25/2012:04:00) Vitamin B12 Lvl [254-1320 pg/mL] 414 pg/mL (09/25/2012:04:00) Folate Lvl [>=3.0 ng/mL] 7.4 ng/mL (09/25/2012:04:00) TIBC [228-428 ug/dl] 609 ug/dl *HI* (09/25/2012:04:00) T4 Free [0.76-1.46 ng/dL] 0.53 ng/dL *LOW* (09/25/2012:05:00) TSH [0.360-3.740 uIU/mL] 46.900 uIU/mL *HI* (09/25/2012:05:00) T3 Free [2.18-3.98 pg/mL] 1.45 pg/mL *LOW* (09/25/2012:05:00) S Preg [Negative] Negative *NA* (09/25/2012:00) 2Result Comment: The eGFR is calculated using [...] be mul tiplied by the estimated BMI. 4Result Comment: The eGFR is calculated using [...] be mul tiplied by the estimated BMI. 5Interpretive Data: Adult reference range values reflect the clinical guidelines of the [place] [employer]. 6Interpretive Data: Adult reference range values reflect the clinical guidelines of the [place] [employer]. 7Interpretive Data: Adult reference range values reflect the clinical guidelines of the [place] [employer]. 8Interpretive Data: HbA1C% eAG(mg/dL) Interpretation 6.0 126 Very good control 6.5 140 Very good control 7.0 154 Good Control 7.5 169 Good Control 8.0 183 Marginal Control, take action to lower 8.5 197 Marginal Control, take action to lower 9.0 212 Poor Control, take action to lower 9.5 226 Poor Control, take action to lower 10.0 240 Poor Control, take action to lower HEMATOLOGY Most recent to oldest [Reference Range]: 1 2 3 WBC [3.7-10.4 K/CMM] 12.8 K/CMM *HI* (09/27/2012 04:22:00) 15.7 K/CMM *HI* (09/26/2012 14:22:00) 13.8 K/CMM *HI* (09/25/2012 20:05:00) RBC [4.20-5.40 M/CMM] 4.53 M/CMM (09/27/2012 04:22:00) 4.57 M/CMM (09/26/2012 14:22:00) 3.36 M/CMM *LOW* (09/25/2012 20:05:00) Hgb [12.0-16.0 g/dL] 12.3 g/dL (09/27/2012 04:22:00) 12.7 g/dL (09/26/2012 14:22:00) 8.7 g/dL *LOW* (09/25/2012 20:05:00) Hct [36.0-48.0 %] 38.6 % (09/27/2012 04:22:00) 39.1 % (09/26/2012 14:22:00) 28.2 % *LOW* (09/25/2012 20:05:00) MCV [81.0-99.0 fL] 85.3 fL (09/27/2012 04:22:00) 85.5 fL (09/26/2012 14:22:00) 83.9 fL (09/25/2012 20:05:00) MCH [27.0-31.0 pg] 27.2 pg (09/27/2012 04:22:00) 27.7 pg (09/26/2012 14:22:00) 26.0 pg *LOW* (09/25/2012 20:05:00) MCHC [32.0-36.0 g/dL] 31.9 g/dL *LOW* (09/27/2012 04:22:00) 32.4 g/dL (09/26/2012 14:22:00) 30.9 g/dL *LOW* (09/25/2012 20:05:00) RDW [11.5-14.5 %] 15.6 % *HI* (09/27/2012 04:22:00) 16.0 % *HI* (09/26/2012 14:22:00) 16.2 % *HI* (09/25/2012 20:05:00) Platelet [133-450 K/CMM] 535 K/CMM *HI* (09/27/2012 04:22:00) 552 K/CMM *HI* (09/26/2012 14:22:00) 644 K/CMM *HI* (09/25/2012 20:05:00) MPV [7.4-10.4 fL] 7.9 fL (09/27/2012 04:22:00) 8.0 fL (09/26/2012 14:22:00) 7.7 fL (09/25/2012 20:05:00) Segs [45.0-75.0 %] 61.0 % (09/27/2012 04:22:00) 82.9 % *HI* (09/26/2012 14:22:00) 64.6 % (09/25/2012 20:05:00) Lymphocytes [20.0-40.0 %] 26.7 % (09/27/2012 04:22:00) 8.8 % *LOW* (09/26/2012 14:22:00) 25.8 % (09/25/2012 20:05:00) Monocytes [2.0-12.0 %] 6.6 % (09/27/2012 04:22:00) 3.5 % (09/26/2012 14:22:00) 5.8 % (09/25/2012 20:05:00) Eosinophils [0.0-4.0 %] 5.2 % *HI* (09/27/2012 04:22:00) 3.5 % (09/26/2012 14:22:00) 3.0 % (09/25/2012 20:05:00) Basophils [0.0-1.0 %] 0.5 % (09/27/2012 04:22:00) 1.3 % *HI* (09/26/2012 14:22:00) 0.8 % (09/25/2012 20:05:00) Segs-Bands # [1.5-8.1 K/CMM] 7.8 K/CMM (09/27/2012 04:22:00) 13.0 K/CMM *HI* (09/26/2012 14:22:00) 8.9 K/CMM *HI* (09/25/2012 20:05:00) Lymphocytes # [1.0-5.5 K/CMM] 3.4 K/CMM (09/27/2012 04:22:00) 1.4 K/CMM (09/26/2012 14:22:00) 3.5 K/CMM (09/25/2012 20:05:00) Monocytes # [0.0-0.8 K/CMM] 0.9 K/CMM *HI* (09/27/2012 04:22:00) 0.5 K/CMM (09/26/2012 14:22:00) 0.8 K/CMM (09/25/2012 20:05:00) Eosinophils # [0.0-0.5 K/CMM] 0.7 K/CMM *HI* (09/27/2012 04:22:00) 0.5 K/CMM (09/26/2012 14:22:00) 0.4 K/CMM (09/25/2012 20:05:00) Basophils # [0.0-0.2 K/CMM] 0.1 K/CMM (09/27/2012 04:22:00) 0.2 K/CMM (09/26/2012 14:22:00) 0.1 K/CMM (09/25/2012 20:05:00) Polychrom [None Seen] Slight (09/26/2012 14:22:00) Slight (09/25/2012 20:05:00) Hypochrom [None Seen] Slight (09/26/2012 14:22:00) Slight (09/25/2012 20:05:00) Target Cell [None Seen] Slight *ABN* (09/26/2012 14:22:00) Slight *ABN* (09/25/2012 20:05:00) Tear Cell [None Seen] Slight *ABN* (09/25/2012 20:05:00) Elliptocyte [None Seen] Slight *ABN* (09/25/2012 20:05:00) Stomatocyte [None Seen] Slight *ABN* (09/25/2012 20:05:00) Plt Morph Normal (09/26/2012 14:22:00) Retic Auto [0.5-1.5 %] 2.0 % *HI* (09/25/2012 20:04:00) Procedures Procedures Date Related Diagnosis section Tubal ligation
--- OUTSIDE RECORDS SUMMARY | 2020-01-09 19:53 | XMS REPORT | Summary of Care ---
Author Author [facility] Organization [facility] Address Unknown Phone Unavailable Encounter [employer](ELMER) [id number] Date(s): 09/19/16 - 09/21/16 [facility] [address] [place] [address]- Final: Chest pain, unspecified Discharge Disposition: Home or Self Care Attending Physician: Meredith Mora MD Admitting Physician: Meredith Mora MD Vital Signs 1 2 3 Most recent to oldest [Reference Range]: 162.56 cm (09/19/16 10:02 AM) Height 98.1 DegF (09/21/16 11:00 AM) 97.8 DegF (09/21/16 7:00 AM) 98.5 DegF (09/21/16 4:00 AM) Temperature Oral [96.4-99.1 DegF] 89/60 mmHg *LOW* (09/21/16 11:00 AM) 93/62 mmHg (09/21/16 7:00 AM) 110/58 mmHg (09/21/16 6:00 AM) Blood Pressure [90-140/60-90 mmHg] 18 BRMIN (09/21/16 11:00 AM) 18 BRMIN (09/21/16 7:00 AM) 18 BRMIN (09/21/16 4:00 AM) Respiratory Rate [14-20 BRMIN] 85 bpm (09/21/16 11:00 AM) 78 bpm (09/21/16 7:00 AM) 99 bpm (09/21/16 6:00 AM) Peripheral Pulse Rate [60-100 bpm] 97.273 kg (09/19/16 10:02 AM) Weight 36.81 m2 (09/19/16 10:02 AM) Body Mass Index Problem List Condition Effective Dates Status Health Status Informan t Anemia(Confirmed) Active Diabetes(Confirmed) Resolved Fever(Confirmed) Active Hodgkins Resolved lymphoma(Confirmed) Hypertension(Confirm Resolved ed) Neuropathy(Confirmed Resolved )1 Shortness of Active breath(Confirmed) Thyroidectomy(Confir Resolved med) 1affects legs Allergies, Adverse Reactions, Alerts Substance Reaction Severity Status vancomycin Active Medications aspirin 325 mg, Route: PO, Drug form: TAB, ONCE, Dosing Weight 97.273, kg, Priority: STA T, Start date: 09/19/16 10:46:00 CDT, Stop date: 09/19/16 10:46:00 CDT Start Date: 09/19/16 Stop Date: 09/19/16 Status: Completed atorvastatin 80 mg, 2 tab, Route: PO, Drug form: TAB, Bedtime, Dosing Weight 97.273, kg, Star t date: 09/19/16 21:00:00 CDT, Duration: 30 day, Stop date: 10/18/16 21:00:00 CD T Notes: (Same as: Lipitor) Start Date: 09/19/16 Stop Date: 09/21/16 Status: Discontinued atorvastatin 40 mg oral tablet 80 mg = 2 tab, PO, Bedtime, 0 Refill(s) Start Date: 09/21/16 Status: Ordered Colace 100 mg oral capsule 100 mg, 1 cap, Route: PO, Drug form: CAP, BID, Dosing Weight 97.273, kg, PRN Con stipation, Start date: 09/19/16 13:43:00 CDT, Duration: 30 day, Stop date: 10/19 13:42:00 CDT Notes: (Same as: Colace) (Do Not Crush) Start Date: 09/19/16 Stop Date: 09/21/16 Status: Discontinued Dextrose 50% Syringe 12.5 gm, 25 mL, Route: IVP, Drug Form: INJ, Dosing Weight 97.273, kg, PRN, PRN B lood Glucose Results, Start date: 09/19/16 13:50:00 CDT, Duration: 30 day, Stop date: 10/19/16 13:49:00 CDT Start Date: 09/19/16 Stop Date: 09/21/16 Status: Discontinued Dextrose 50% Syringe 25 gm, 50 mL, Route: IVP, Drug Form: INJ, Dosing Weight 97.273, kg, PRN, PRN Blo od Glucose Results, Start date: 09/19/16 13:50:00 CDT, Duration: 30 day, Stop da te: 10/19/16 13:49:00 CDT Start Date: 09/19/16 Stop Date: 09/21/16 Status: Discontinued Dextrose 50% Syringe 12.5 gm, 25 mL, Route: IVP, Drug Form: INJ, Dosing Weight 97.273, kg, PRN, PRN B lood Glucose Results, Start date: 09/20/16 23:13:00 CDT, Duration: 30 day, Stop date: 10/20/16 23:12:00 CDT Start Date: 09/20/16 Stop Date: 09/21/16 Status: Discontinued Dextrose 50% Syringe 25 gm, 50 mL, Route: IVP, Drug Form: INJ, Dosing Weight 97.273, kg, PRN, PRN Blo od Glucose Results, Start date: 09/20/16 23:13:00 CDT, Duration: 30 day, Stop da te: 10/20/16 23:12:00 CDT Start Date: 09/20/16 Stop Date: 09/21/16 Status: Discontinued Effient 10 mg, 1 tab, Route: PO, Drug form: TAB, Daily, Dosing Weight 97.273, kg, Start date: 09/20/16 9:00:00 CDT, Duration: 30 day, Stop date: 10/19/16 9:00:00 CDT Notes: Same as Effient For patients < 75 years old, > 60kg, without history of TIA/Ischemic stroke and without likely bypass surgery Start Date: 09/20/16 Stop Date: 09/21/16 Status: Discontinued ferrous sulfate 325 mg, 1 tab, Route: PO, Drug form: ECTAB, TID-Meals, Dosing Weight 97.273, kg, Start date: 09/19/16 17:00:00 CDT, Duration: 30 day, Stop date: 10/19/16 12:00: 00 CDT Notes: Give with food. "Do Not Crush" Start Date: 09/19/16 Stop Date: 09/21/16 Status: Discontinued glipiZIDE 10 mg oral tablet 10 mg = 1 tab, PO, BID-Before Meals, # 60 tab, 0 Refill(s) Start Date: 09/21/16 Status: Ordered glucagon 1 mg, Route: IM, Drug form: PDR/INJ, PRN, Dosing Weight 97.273, kg, PRN Blood Gl ucose Results, Start date: 09/19/16 13:50:00 CDT, Duration: 30 day, Stop date: 0 10/19/16 13:49:00 CDT Start Date: 09/19/16 Stop Date: 09/21/16 Status: Discontinued glucagon 1 mg, Route: IM, Drug form: PDR/INJ, PRN, Dosing Weight 97.273, kg, PRN Blood Gl ucose Results, Start date: 09/20/16 23:13:00 CDT, Duration: 30 day, Stop date: 0 10/20/16 23:12:00 CDT Start Date: 09/20/16 Stop Date: 09/21/16 Status: Discontinued Glucotrol 5 mg, 1 tab, Route: PO, Drug form: TAB, BID-Before Meals, Dosing Weight 97.273, kg, Start date: 09/19/16 16:30:00 CDT, Duration: 30 day, Stop date: 10/19/16 7:3 0:00 CDT Notes: (Same as: Glucotrol) 30 min before meals. Start Date: 09/19/16 Stop Date: 09/20/16 Status: Discontinued Glucotrol 10 mg, 1 tab, Route: PO, Drug form: TAB, BID-Before Meals, Dosing Weight 97.273, kg, Start date: 09/21/16 7:30:00 CDT, Duration: 30 day, Stop date: 10/20/16 16: 30:00 CDT Notes: (Same as: Glucotrol) 30 min before meals. Start Date: 09/21/16 Stop Date: 09/21/16 Status: Discontinued insulin aspart 8 unit, 0.08 mL, Route: SUB-Q, Drug form: SOLN, TID-Before Meals, Dosing Weight 97.273, kg, PRN Blood Glucose Results, Start date: 09/19/16 13:50:00 CDT, Durati on: 30 day, Stop date: 10/19/16 13:49:00 CDT Notes: Roll in palms of hands gently; Do not shake vigorously. (Same as: NovoLO G)"single patient use only"WASTE: F/P - Black; E - Municipal Trash Bin Stable f or 28 days at room temperature.Expires in days from Date Start Date: 09/19/16 Stop Date: 09/21/16 Status: Discontinued insulin aspart 10 unit, 0.1 mL, Route: SUB-Q, Drug form: SOLN, TID-Before Meals, Dosing Weight 97.273, kg, PRN Blood Glucose Results, Start date: 09/19/16 13:50:00 CDT, Durati on: 30 day, Stop date: 10/19/16 13:49:00 CDT Notes: Roll in palms of hands gently; Do not shake vigorously. (Same as: Ortiz Dunlap)"single patient use only"WASTE: F/P - Black; E - Municipal Trash Bin Stable f or 28 days at room temperature.Expires in days from Date Start Date: 09/19/16 Stop Date: 09/21/16 Status: Discontinued insulin aspart 2 unit, 0.02 mL, Route: SUB-Q, Drug form: SOLN, TID-Before Meals, Dosing Weight 97.273, kg, PRN Blood Glucose Results, Start date: 09/19/16 13:50:00 CDT, Durati on: 30 day, Stop date: 10/19/16 13:49:00 CDT Notes: Roll in palms of hands gently; Do not shake vigorously. (Same as: Ortiz Dunlap)"single patient use only"WASTE: F/P - Black; E - Municipal Trash Bin Stable f or 28 days at room temperature.Expires in days from Date Start Date: 09/19/16 Stop Date: 09/21/16 Status: Discontinued insulin aspart 4 unit, 0.04 mL, Route: SUB-Q, Drug form: SOLN, TID-Before Meals, Dosing Weight 97.273, kg, PRN Blood Glucose Results, Start date: 09/19/16 13:50:00 CDT, Durati on: 30 day, Stop date: 10/19/16 13:49:00 CDT Notes: Roll in palms of hands gently; Do not shake vigorously. (Same as: NovoCATIA Dunlap)"single patient use only"WASTE: F/P - Black; E - Municipal Trash Bin Stable f or 28 days at room temperature.Expires in days from Date Start Date: 09/19/16 Stop Date: 09/21/16 Status: Discontinued insulin aspart 6 unit, 0.06 mL, Route: SUB-Q, Drug form: SOLN, TID-Before Meals, Dosing Weight 97.273, kg, PRN Blood Glucose Results, Start date: 09/19/16 13:50:00 CDT, Durati on: 30 day, Stop date: 10/19/16 13:49:00 CDT Notes: Roll in palms of hands gently; Do not shake vigorously. (Same as: NovoCATIA Dunlap)"single patient use only"WASTE: F/P - Black; E - Municipal Trash Bin Stable f or 28 days at room temperature.Expires in days from Date Start Date: 09/19/16 Stop Date: 09/21/16 Status: Discontinued insulin aspart 2 unit, 0.02 mL, Route: SUB-Q, Drug form: SOLN, Bedtime, Dosing Weight 97.273, k g, PRN Blood Glucose Results, Start date: 09/20/16 23:13:00 CDT, Duration: 30 da y, Stop date: 10/20/16 23:12:00 CDT Notes: Roll in palms of hands gently; Do not shake vigorously. (Same as: NovoCATIA Dunlap)"single patient use only"WASTE: F/P - Black; E - Municipal Trash Bin Stable f or 28 days at room temperature.Expires in days from Date Start Date: 09/20/16 Stop Date: 09/21/16 Status: Discontinued insulin aspart 3 unit, 0.03 mL, Route: SUB-Q, Drug form: SOLN, Bedtime, Dosing Weight 97.273, k g, PRN Blood Glucose Results, Start date: 09/20/16 23:13:00 CDT, Duration: 30 da y, Stop date: 10/20/16 23:12:00 CDT Notes: Roll in palms of hands gently; Do not shake vigorously. (Same as: Ortiz Dunlap)"single patient use only"WASTE: F/P - Black; E - Municipal Trash Bin Stable f or 28 days at room temperature.Expires in days from Date Start Date: 09/20/16 Stop Date: 09/21/16 Status: Discontinued insulin aspart 4 unit, 0.04 mL, Route: SUB-Q, Drug form: SOLN, Bedtime, Dosing Weight 97.273, k g, PRN Blood Glucose Results, Start date: 09/20/16 23:13:00 CDT, Duration: 30 da y, Stop date: 10/20/16 23:12:00 CDT Notes: Roll in palms of hands gently; Do not shake vigorously. (Same as: Ortiz Dunlap)"single patient use only"WASTE: F/P - Black; E - Municipal Trash Bin Stable f or 28 days at room temperature.Expires in days from Date Start Date: 09/20/16 Stop Date: 09/21/16 Status: Discontinued insulin aspart 1 unit, 0.01 mL, Route: SUB-Q, Drug form: SOLN, Bedtime, Dosing Weight 97.273, k g, PRN Blood Glucose Results, Start date: 09/20/16 23:13:00 CDT, Duration: 30 da y, Stop date: 10/20/16 23:12:00 CDT Notes: Roll in palms of hands gently; Do not shake vigorously. (Same as: Ortiz Dunlap)"single patient use only"WASTE: F/P - Black; E - Municipal Trash Bin Stable f or 28 days at room temperature.Expires in days from Date Start Date: 09/20/16 Stop Date: 09/21/16 Status: Discontinued levothyroxine 300 microgram, 2 tab, Route: PO, Drug form: TAB, Q630AM, Dosing Weight 97.273, k g, Start date: 09/20/16 6:30:00 CDT, Duration: 30 day, Stop date: 10/19/16 6:30: 00 CDT Notes: Take 1 hour before or 2 hours after meal; Enteral feeds may interefere wi th the absorption of this medication. (Same as: Levothroid) Start Date: 09/20/16 Stop Date: 09/21/16 Status: Discontinued liothyronine 5 microgram, 1 tab, Route: PO, Drug form: TAB, Q630AM, Dosing Weight 97.273, kg, Start date: 09/20/16 6:30:00 CDT, Duration: 30 day, Stop date: 10/19/16 6:30:00 CDT Notes: (Same as: Cytomel) Start Date: 09/20/16 Stop Date: 09/21/16 Status: Discontinued liothyronine 5 mcg oral tablet 5 microgram = 1 tab, PO, Q630AM, 0 Refill(s) Start Date: 09/21/16 Status: Ordered Lovenox 97 mg, Route: SUB-Q, Drug form: INJ, ONCE, Dosing Weight 97.273, kg, Priority: S TAT, Start date: 09/19/16 13:02:00 CDT, Stop date: 09/19/16 13:02:00 CDT Start Date: 09/19/16 Stop Date: 09/19/16 Status: Completed Lyrica 25 mg, 1 cap, Route: PO, Drug form: CAP, Bedtime, Dosing Weight 97.273, kg, Star t date: 09/19/16 21:00:00 CDT, Duration: 30 day, Stop date: 10/18/16 21:00:00 CD T Notes: (Same as: Lyrica) Start Date: 09/19/16 Stop Date: 09/21/16 Status: Discontinued metFORMIN 500 mg oral tablet 500 mg, PO, BID, # 60 tab, 0 Refill(s) Start Date: 09/21/16 Status: Ordered metFORMIN 500 mg oral tablet 500 mg, 1 tab, Route: PO, Drug form: TAB, BID-Meals, Dosing Weight 97.273, kg, S tart date: 09/22/16 17:00:00 CDT, Duration: 30 day, Stop date: 10/22/16 8:00:00 CDT Notes: (Same as: Glucophage) Take with [id number] after contast - start at 1700 09/22 Start Date: 09/22/16 Stop Date: 09/21/16 Status: Canceled metoprolol tartrate 25 mg, 1 tab, Route: PO, Drug form: TAB, Q8Hnow, Dosing Weight 97.273, kg, Prior ity: STAT, Start date: 09/19/16 13:45:00 CDT, Duration: 30 day, Stop date: 10/19 6:00:00 CDT Notes: (Same as: Lopressor) Start Date: 09/19/16 Stop Date: 09/21/16 Status: Discontinued metoprolol tartrate 25 mg oral tablet 25 mg = 1 tab, PO, TID, # 90 tab, 1 Refill(s) Start Date: 09/21/16 Status: Ordered metoprolol tartrate 25 mg oral tablet 25 mg = 1 tab, PO, Q8Hnow, 0 Refill(s) Start Date: 09/21/16 Stop Date: 09/21/16 Status: Deleted morphine Sulfate 4 mg, Route: IVP, ONCE, Dosing Weight 97.273, kg, Priority: STAT, Start date: 10:46:00 CDT, Stop date: 09/19/16 10:46:00 CDT Start Date: 09/19/16 Stop Date: 09/19/16 Status: Completed ondansetron 4 mg, Route: IVP, Drug form: INJ, ONCE, Dosing Weight 97.273, kg, Priority: STAT , Start date: 09/19/16 10:46:00 CDT, Stop date: 09/19/16 10:46:00 CDT Start Date: 09/19/16 Stop Date: 09/19/16 Status: Completed prasugrel 10 mg oral tablet 10 mg = 1 tab, PO, Daily, 0 Refill(s) Start Date: 09/21/16 Status: Ordered Venofer + sodium chloride 0.9% INJ 250 mL 300 mg, 15 mL, Route: IVPB, Drug form: INJ, ONCE, Dosing Weight 97.273, kg, Star t date: 09/20/16 17:06:00 CDT, Duration: 1 doses or times, Stop date: 09/20/16 1 7:06:00 CDT Notes: Each 5ml contains 100mg elemental iron. Mix with NSNon-Formulary(Same as :Venofer)Administer IV only. MEDICATION WASTE Product Size: [address] Wasted: ___ mg Start Date: 09/20/16 Stop Date: 09/20/16 Status: Completed Venofer + sodium chloride 0.9% INJ 90 mL 200 mg, 10 mL, Route: IVPB, Daily, Dosing Weight 97.273, kg, Start date: 7 9:00:00 CDT, Duration: 1 doses or times, Stop date: 09/21/16 9:00:00 CDT Notes: Each 5ml contains 100mg elemental iron. Mix with NSNon-Formulary(Same as :Venofer)Administer IV only. MEDICATION WASTE Product Size: [address] Wasted: ___ mg Start Date: 09/21/16 Stop Date: 09/21/16 Status: Completed Results ELECTROLYTES 1 2 3 Most recent to oldest [Reference Range]: 136 mEq/L (09/20/16 4:39 AM) 133 mEq/L *LOW* (09/19/16 10:53 AM) Sodium Lvl [135-145 mEq/L] 4.0 mEq/L (09/20/16 4:39 AM) 5.0 mEq/L (09/19/16 10:53 AM) Potassium Lvl [3.5-5.1 mEq/L] 99 mEq/L (09/20/16 4:39 AM) 99 mEq/L (09/19/16 10:53 AM) Chloride Lvl [95-109 mEq/L] 26 mEq/L (09/20/16 4:39 AM) 24 mEq/L (09/19/16 10:53 AM) CO2 [24-32 mEq/L] 15.0 mEq/L (09/20/16 4:39 AM) 15.0 mEq/L (09/19/16 10:53 AM) AGAP [10.0-20.0 mEq/L] CHEM PANEL 1 2 3 Most recent to oldest [Reference Range]: 0.83 mg/dL (09/20/16 4:39 AM) 0.93 mg/dL (09/19/16 10:53 AM) Creatinine Lvl [0.50-1.40 mg/dL] 90 mL/min/1.73m2 1 *NA* (09/20/16 4:39 AM) 78 mL/min/1.73m2 2 *NA* (09/19/16 10:53 AM) eGFR 14 mg/dL (09/20/16 4:39 AM) 12 mg/dL (09/19/16 10:53 AM) BUN [7-22 mg/dL] 17 (09/20/16 4:39 AM) B/C Ratio [6-25] 300 mg/dL *HI* (09/20/16 4:39 AM) 250 mg/dL *HI* (09/19/16 10:53 AM) Glucose Lvl [70-99 mg/dL] 6.9 g/dL (09/20/16 4:39 AM) Total Protein [6.4-8.4 g/dL] 2.9 g/dL *LOW* (09/20/16 4:39 AM) Albumin Lvl [3.5-5.0 g/dL] 4.0 g/dL (09/20/16 4:39 AM) Globulin [2.7-4.2 g/dL] 0.7 (09/20/16 4:39 AM) A/G Ratio [0.7-1.6] 8.5 mg/dL (09/20/16 4:39 AM) 9.0 mg/dL (09/19/16 10:53 AM) Calcium Lvl [8.5-10.5 mg/dL] 35 unit/L (09/20/16 4:39 AM) ALT [0-65 unit/L] 33 unit/L (09/20/16 4:39 AM) AST [0-37 unit/L] 173 unit/L *HI* (09/20/16 4:39 AM) Alk Phos [39-136 unit/L] 0.6 mg/dL (09/20/16 4:39 AM) Bili Total [0.2-1.3 mg/dL] 1Result Comment: The [...] 3 Most recent to oldest [Reference Range]: 62 unit/L (09/19/16 11:14 PM) 67 unit/L (09/19/16 5:05 PM) 168 unit/L (09/19/16 10:53 AM) Total CK [12-191 unit/L] 0.8 ng/mL (09/19/16 10:53 AM) CK MB [0.5-3.6 ng/mL] 0.5 (09/19/16 10:53 AM) CK MB Index [0.0-2.5] <0.02 ng/mL (09/19/16 11:14 PM) <0.02 ng/mL (09/19/16 5:05 PM) <0.02 ng/mL (09/19/16 10:53 AM) Troponin-I [0.00-0.40 ng/mL] 25 pg/mL (09/19/16 10:53 AM) BNP [<=100 pg/mL] ANEMIA STUDY 1 2 3 Most recent to oldest [Reference Range]: 33 ug/dl (09/20/16 10:09 AM) Iron [30-160 ug/dl] 6 ng/mL (09/20/16 10:09 AM) Ferritin Lvl [5-204 ng/mL] 7 % *LOW* (09/20/16 10:09 AM) % Satur Fe [12-57 %] 454 ug/dl *HI* (09/20/16 10:09 AM) UIBC [110-370 ug/dl] 452 pg/mL (09/20/16 10:09 AM) Vitamin B12 Lvl [254-1320 pg/mL] 8.8 ng/mL (09/20/16 10:09 AM) Folate Lvl [>=3.0 ng/mL] 487 ug/dl *HI* (09/20/16 10:09 AM) TIBC [228-428 ug/dl] ENDOCRINOLOGY 1 2 3 Most recent to oldest [Reference Range]: Negative *NA* (09/20/16 4:39 AM) S Preg [Negative] HEMATOLOGY 1 2 3 Most recent to oldest [Reference Range]: 11.0 K/CMM *HI* (09/21/16 6:22 AM) 9.6 K/CMM (09/20/16 4:39 AM) 12.0 K/CMM *HI* (09/19/16 10:53 AM) WBC [3.7-10.4 K/CMM] 3.83 M/CMM *LOW* (09/21/16 6:22 AM) 3.68 M/CMM *LOW* (09/20/16 4:39 AM) 4.15 M/CMM *LOW* (09/19/16 10:53 AM) RBC [4.20-5.40 M/CMM] 8.2 g/dL *LOW* (09/21/16 6:22 AM) 8.5 g/dL *LOW* (09/20/16 10:09 AM) 7.9 g/dL *LOW* (09/20/16 4:39 AM) Hgb [12.0-16.0 g/dL] 27.0 % *LOW* (09/21/16 6:22 AM) 27.7 % *LOW* (09/20/16 10:09 AM) 26.0 % *LOW* (09/20/16 4:39 AM) Hct [36.0-48.0 %] 70.6 fL *LOW* (09/21/16 6:22 AM) 70.6 fL *LOW* (09/20/16 4:39 AM) 71.0 fL *LOW* (09/19/16 10:53 AM) MCV [80.0-98.0 fL] 21.5 pg *LOW* (09/21/16 6:22 AM) 21.5 pg *LOW* (09/20/16 4:39 AM) 21.6 pg *LOW* (09/19/16 10:53 AM) MCH [27.0-31.0 pg] 30.5 g/dL *LOW* (09/21/16 6:22 AM) 30.4 g/dL *LOW* (09/20/16 4:39 AM) 30.5 g/dL *LOW* (09/19/16 10:53 AM) MCHC [32.0-36.0 g/dL] 18.0 % *HI* (09/21/16 6:22 AM) 17.6 % *HI* (09/20/16 4:39 AM) 18.3 % *HI* (09/19/16 10:53 AM) RDW [11.5-14.5 %] 530 K/CMM *HI* (09/21/16 6:22 AM) 513 K/CMM *HI* (09/20/16 4:39 AM) 625 K/CMM *HI* (09/19/16 10:53 AM) Platelet [133-450 K/CMM] 8.3 fL (09/21/16 6:22 AM) 8.2 fL (09/20/16 4:39 AM) 8.5 fL (09/19/16 10:53 AM) MPV [7.4-10.4 fL] 79.6 % *HI* (09/21/16 6:22 AM) 63.7 % (09/20/16 4:39 AM) 74.8 % (09/19/16 10:53 AM) Segs [45.0-75.0 %] 11.3 % *LOW* (09/21/16 6:22 AM) 23.1 % (09/20/16 4:39 AM) 16.5 % *LOW* (09/19/16 10:53 AM) Lymphocytes [20.0-40.0 %] 4.2 % (09/21/16 6:22 AM) 8.5 % (09/20/16 4:39 AM) 6.0 % (09/19/16 10:53 AM) Monocytes [2.0-12.0 %] 3.8 % (09/21/16 6:22 AM) 3.7 % (09/20/16 4:39 AM) 1.8 % (09/19/16 10:53 AM) Eosinophils [0.0-4.0 %] 1.1 % *HI* (09/21/16 6:22 AM) 1.0 % (09/20/16 4:39 AM) 0.9 % (09/19/16 10:53 AM) Basophils [0.0-1.0 %] 8.8 K/CMM *HI* (09/21/16 6:22 AM) 6.1 K/CMM (09/20/16 4:39 AM) 9.0 K/CMM *HI* (09/19/16 10:53 AM) Segs-Bands # [1.5-8.1 K/CMM] 1.2 K/CMM (09/21/16 6:22 AM) 2.2 K/CMM (09/20/16 4:39 AM) 2.0 K/CMM (09/19/16 10:53 AM) Lymphocytes # [1.0-5.5 K/CMM] 0.5 K/CMM (09/21/16 6:22 AM) 0.8 K/CMM (09/20/16 4:39 AM) 0.7 K/CMM (09/19/16 10:53 AM) Monocytes # [0.0-0.8 K/CMM] 0.4 K/CMM (09/21/16 6:22 AM) 0.4 K/CMM (09/20/16 4:39 AM) 0.2 K/CMM (09/19/16 10:53 AM) Eosinophils # [0.0-0.5 K/CMM] 0.1 K/CMM (09/21/16 6:22 AM) 0.1 K/CMM (09/20/16 4:39 AM) 0.1 K/CMM (09/19/16 10:53 AM) Basophils # [0.0-0.2 K/CMM] Slight *NA* (09/21/16 6:22 AM) Polychrom 1+ (09/21/16 6:22 AM) Hypochrom [None Seen] 2+ *ABN* (09/21/16 6:22 AM) 2+ *ABN* (09/20/16 4:39 AM) 1+ *ABN* (09/19/16 10:53 AM) Microcyte [None Seen] Slight *NA* (09/21/16 6:22 AM) Target Cell Normal (09/21/16 6:22 AM) Plt Morph 1.9 % *HI* (09/20/16 10:09 AM) Retic Auto [0.5-1.5 %] 13.6 seconds (09/19/16 10:53 AM) PT [12.0-14.7 seconds] 1.02 (09/19/16 10:53 AM) INR [0.85-1.17] 0.83 ug/mL FEU *NA* (09/19/16 10:53 AM) D-Dimer 27.6 seconds (09/19/16 10:53 AM) PTT [22.9-35.8 seconds] Immunizations Not Given Vaccine Date Status Refusal [...] Plan Extracted from: Title: Clinical Document Author: Shirley Lara MD Date: 09/21/16 Progress Daily [facility] Completed: Sep, 10:43 by Shirley Lara MD RM: [id number] - [address], SE [id number] (: 1975) F Attending: Meredith Mora MDPhone: Service: Cardiology Reason for Admission: CHEST PAIN Working DRG: Chest pain Code status: None Specified=FULL CODECurrent diet: Isolation: None Documented Allergies: vancomycin SUBJECTIVE Looks better. 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 [place] still necessary (Yes/No): Line still necessary (Yes/No): 24hr Labs 09/21 0659 Glucose [id number] H 09/21 0622 WBC11.0 H RBC3.83 L Hgb8.2 L Hct27.0 L MCV70.6 L MCH21.5 L MCHC30.5 L RDW18.0 H Inpqamvr666 H MPV8.3 Segs79.6 H Monocytes4.2 Vjjtuznriub41.3 L Eosinophils3.8 Basophils1.1 H Segs-Bands #8.8 H Lymphocytes #1.2 Monocytes #0.5 Eosinophils #0.4 Basophils #0.1 Plt MorphNormal Microcyte2+ Hypochrom1+ PolychromSlight Target CellSlight 09/20 2127 Glucose JNJ283 H 09/20 1549 Glucose UGJ014 H 09/20 1112 Glucose OBY323 H 09/20 1009 Ferritin Lvl6 Folate Lvl8.8 Iron33 % Satur Fe7 L JOZD084 H BKJF677 H Vitamin B12 Clc180 VitalsTmp(F)KvhpvLSCRRaY2BOY0 09/21 07:0097.80555/908885--- 09/21 06:00----14836/58-------- 09/21 04:0098.330788/747085--- 09/21 00:0098.158736/745373--- 09/20 20:0098.651732/624968--- 24 Hr Tmax: 98.7F (37.06c) at 09/20 11:2 0Vital Signs are the last 5 in the past 48 hours. DateWt(kg)Wt(lb)Ht(cm)Ht(in)Method 09/19 (initial) 97.27 214.00Estimated 62.56 64.00Stated I&ORecordInOutBal 09/2023hr Tot 100 0 100 09/1923hr Tot 265 0 265 Medications (25) Active [...]
[2020-01-09] MEDS ORDERED: SODIUM CHLORIDE 0.9% 1000ML 1,000 ML IV STA (19:54)
--- OUTSIDE RECORDS SUMMARY | 2020-01-09 19:55 | XMS REPORT | Continuity of Care Document ---
Author Author [facility] Organization [facility] Address [address] [place] [address] Phone Unavailable Care Team Providers Care Client Service And Consulting Manager Name Role Phone KIARA WILSON, MD NASH PCP Malcolm Ruano Attphys Ben Ring Attphys Kristine Millan Attphys LOU BERMUDEZ Attphys Unavailable TRACEY FRITZ Attphys Unavailable JOHN VALDOVINOS Attphys Unavailable BECKY ECHEVARRIA Attphys Unavailable PARHIZGAR, ARSLAN Attphys Unavailable Meredith Mora Attphys Castillo Murguia Attphys [phone] Bipin Woodward Attphys Physician, Associated Non Attphys Unavailable Jeremy Cantu Attphys Malcolm Ruanonan Admphys Darin Hoover Admphys KWADWO BURNETT Admphys Unavailable PARHIZRAFY, ARSLAN Admphys Unavailable Meredith Mora Admphys MychalBipin cárdenas Admphys Physician, Associated Non Admphys Unavailable Alondra Jeremy Admphys Payers Payer Name Policy Type Policy Number Effective Date Expiration Date S padma Medicare A & B [id number] 2019 00:00:00 [facility] [employer] Pos [id number] 2012 00:00:00 [facility] Problems Condition Name Condition Details Condition Category Status Onset Date Resolution Date Last Treatment Date Treating Clinician Comments Source SYMPTOMATIC ANEMIA, ACUTE CHEST PAIN SYMPTOMATIC ANEMIA, ACUTE CHEST PAIN Active 06/04/2019 [facility] Diagnosis Active 2019-06-04 00:00:00 2019-12-19 11:06:00 Daina Trammell ABNORMAL EKG ABNO RMAL EKG Active 06/04/2019 [facility] Diagnosis Active 2019-06-04 00:00:00 2019-06-04 14:09:00 [facility] Jp BACK PAIN' BACK PAIN' Active 04/23/2019 [facility] [place] Diagnosis Active 2019-04-23 08:00:00 2019-07-22 23:49:00 [facility] Jp ARM PAIN / CHEST PAIN ARM PAIN / CHEST PAIN Active 06/25/2018 [facility] Diagnosis Active 2018-06-25 00:00:00 2018-06-25 11:57: 00 [facility] ACS ACS Active 06/25/2018 [facility] Diagnosis Active 2018-06-25 00:00:00 2018-06-26 08:13:00 M [facility] ACUTE CHEST PAIN/SYNCOPE/EXCESSIVE VAGIN ACUTE CHEST PAIN/SYNCOPE/EXCESSIVE VAGIN Active 03/12/2018 [facility] Diagnosis A ctive 2018-03-12 00:00:00 2018-03-13 12:10:00 [facility] SYCOPAL EPISODE SYCO PAL EPISODE Active 03/12/2018 [facility] Diagnosis Active 2018-03-12 00:00:00 2018-03-12 16:37:00 [facility] Jp BLURRY VISIION BLUR RY VISIION Active 03/06/2017 [facility] Diagnosis Active 2017-03-06 00:00:00 2017-03-06 13:21:00 [facility] Severe sepsis with septic shock (CODE) Severe sepsis with se ptic shock (CODE) Disease Active 2016-11-05 00:00:00 [facility] Elevated lactic acid level Elevated lactic acid level Disease Active 2016-11-05 00:00:00 [facility] E coli bacteremia E coli bacteremia Disease Active 2016-11-05 00:00:00 [facility] Sepsis secondary to UTI Sepsis secondary to UTI Disease Active 2016-11-04 00:00:00 [facility] Iron deficiency anemia secondary to inadequate dietary iron intake Iron deficiency anemia secondary to inadequate dietary iron intake Disease Active 2016-09-24 00:00:00 [facility] CHEST PAIN CHES T PAIN Active 09/19/2016 [facility] Active 2016-09-19 00:00:00 2016-09-20 11:02:00 [facility] Myocardial infarction Myocardial infarction Disease Active 12-04-25 00:00:00 [facility] Leucocytosis Leucocytosis Disease Active 2016-08-26 00:00:00 [facility] Hypochromic microcytic anemia Hypochromic microcytic anemia Disease Active 2016-08-26 00:00:00 [facility] Diabetes mellitus due to underlying cond ition with hyperosmolarity without coma, without long-term current use of insulin Diabetes mellitus due to underlying condition with hyperosmolarity without coma, without long-term current use of insulin Disease Active 2016-08-26 00:00:00 [facility] Precordial chest pain Precordial chest pain Disease Active 12-05-23 00:00:00 [facility] Obesity (BMI 30-39.9) Obesity (BMI 30-39.9) Disease Active 12-05-23 00:00:00 [facility] Hypothyroid Hypothyroid Disease Active 2016-08-25 00:00:00 [facility] Diabetic neuropathy Diabetic neuropathy Disease Active 2016-08-25 00:00 :00 [facility] Type 2 diabetes, uncontrolled, with neuropathy Type 2 diabetes, uncontrolled, with neuropathy Disease Active 2016-08-25 00:00:00 [facility] NSTEMI (non-ST elevated myocardial infarction) NSTEMI (non-ST elevated myocardial infarction) Disease Active 2016-08-25 00:00:00 [facility] Left arm pain Left arm pain Disease Active 2016-08-25 00:00:00 [facility] Acquired hypothyroidism Acquired hypothyroidism Disease Active 2016-02-17 00:00:00 [facility] Chest pain, unspecified type Chest pain, unspecified type Disease Active 2016-02-16 00:00:00 [facility] CHEST TIGHTNESS CHES T TIGHTNESS Active 02/14/2016 [facility] Active 2016-02-14 00:00:00 2016-02-14 11:48:00 Daina Trammell SYMPTOMATIC ANEMIA, CHEST PAIN SYMPTOMATIC ANEMIA, CHEST PAIN Active 02/14/2016 [facility] Active 2016-02-14 00:00:00 2016-02-18 07:32:00 Daina Trammell SOB SOB Active 01/12/2016 [facility] Active 2016-01-12 00:00:00 2016-01-12 14:32:00 M pearl Trammell NUMBNESS IN SHOULDER NUMB NESS IN SHOULDER Active 09/14/2015 [facility] Active 2015-09-14 00:00:00 2015-09-14 18:49:00 Daina Trammell RHABDOMYOLYSIS, IVONNE RHAB DOMYOLYSIS, IVONNE Active 09/14/2015 [facility] Active 2015-09-14 00:00:00 2015-09-16 13:32:00 Daina Trammell Hypothyroidism Hypothyroidism Problem Active 2015-02-03 00:00:00 [facility] Metrorrhagia Metrorrhagia Problem Active 2015-02-03 00:00:00 [facility] Secondary anemia Symptomatic anemia Problem Active 2015-02-03 00:00:00 [facility] UTI UTI Active 08/28/2014 [facility] Active 2014-08-28 19:00:00 2014-08-28 19:31:00 M pearl Trammell CHEST PAIN, ANEMIA CHES T PAIN, ANEMIA Active 03/16/2014 [facility] Active 2014-03-16 12:26:00 2014-06-24 17:17:00 [facility] Angular cheilitis Angular cheilitis Disease Active 2013-09-25 00:00:00 [facility] Anemia Anemia Disease Active 2013-09-24 00:00:00 [facility] ANEMIA, CHEST PAIN ANEM IA, CHEST PAIN Active 09/25/2012 [facility] Active 2012-09-25 16:17:00 2012-10-03 21:54:[address] [facility] [address] DANIEL Sanford ENT Active 09/22/2012 [facility] Active 2012-09-22 00:00:00 2012-09-22 15:01:00 [facility] ANEMIA ANEM IA Active 09/18/2012 [facility] Active 2012-09-18 00:00:00 2012-12-11 11:53:00 [facility] Musculoskeletal pain Problem Active [facility] Acute pain Problem Active [facility] Hypertension Hypertension Disease Active [facility] Acid reflux disease Acid reflux disease Disease Active [facility] Type 2 diabetes mellitus without complications Type 2 diabetes mellitus without complications 01/12/2019 [facility] 2019-01-12 13:10:05 [facility] Postprocedural hypothyroidism Postprocedural hypothyroidism 01/12/2019 [facility] 2019-01-02 13:10:05 [facility] Essential (primary) hypertension Essential (primary) hypertension 01/12/2019 [facility] 2019-01-12 13:10:05 [facility] shelter (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/antiplatelets 01/12/2019 [facility] 2019-01-12 13:10:05 [facility] shelter (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 shelter (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 01/12/2019 [facility] 2019-01-02 1 13:10:05 [facility] shelter (current) use of oral hypoglycemic drugs shelter (current) use of oral hypoglycemic drugs 01/12/2019 [facility] 2019-01-12 13:10:05 [facility] Other buttermaker continuous churn (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) drug therapy Other longterm (current) drug therapy 01/12/2019 [facility] 2019-01-12 13:10:05 [facility] Personal history of Hodgkin lymphoma Personal history of Hodgkin lymphoma 01/12/2019 [facility] 2019-01 13:10:05 Daina Trammell Allergy status to other antibiotic agents status Allergy status to other antibiotic agents status 01/12/2019 [facility] 2019-01-12 13:10:05 Daina Trammell Presence of aortocoronary bypass graft Presence of aortocoronary bypass graft 01/12/2019 [facility] 2019-01-12 13:10:05 Daina Trammell Syncope and collapse Sync ope and collapse 09/30/2018 [facility] 2018-09-30 13:54:12 Me [facility] Jp Abnormal uterine and vaginal bleeding, unspecified Abnormal uterine and vaginal bleeding, unspecified 09/30/2018 [facility] 2018-09-30 13:54:12 Daina Orantesann Anemia, unspecified Anem ia, unspecified 09/30/2018 [facility] 2018-09-30 13:54:12 [facility] [place] 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 09/30/2018 [facility] 2018-09-30 13:54:12 [facility] Hypothyroidism, unspecified Hy pothyroidism, unspecified 09/30/2018 [facility] 2018-09-30 13:54:1 2 [facility] [place] Presence of (intrauterine) contraceptive device Presence of (intrauterine) contraceptive device 09/30/2018 [facility] 2018-09-30 13:54:12 Daina Orantesann Type 2 diabetes mellitus with diabetic neuropathy, uns pecified Type 2 diabetes mellitus with diabetic neuropathy, unspecified 09/30/2018 [facility] 2018-09-30 13:54:12 [facility] Coronary angioplasty status Co ronary angioplasty status 09/30/2018 [facility] 2018-09-30 13:54:1 2 Daina Trammell Hormone replacement therapy (postmenopausal) Hormone replacement therapy (postmenopausal) 09/30/2018 [facility] 2018-09-30 13:54:12 Daina Orantesann Old myocardial infarction Old myocardial infarction 09/30/2018 [facility] 2018-09-30 13:54:12 Daina Orantesann Other ovarian cyst, right side Other ovarian cyst, right side 09/30/2018 [facility] 2018-09-30 13:54:1 2 [facility] [place] Unspecified right bundle-branch block Unspecified right bundle-branch block 09/30/2018 [facility] 2018-09-30 13:54:12 [facility] Other specified abnormal uterine and vaginal bleeding Other specified abnormal uterine and vaginal bleeding 09/30/2018 [facility] Problem 2018-09-30 13:54:12 [facility] Family history of diabetes mellitus Family history of diabetes mellitus 09/30/2018 [facility] Problem 09-30 13:54:12 Daina Trammell Tubal ligation status Tuba l ligation status 09/30/2018 [facility] Problem 2018-09-30 13:54:12 [facility] Diabetes mellitus (disorder) D iabetes mellitus (disorder) Resolved Problem 06/07/2019 [facility] Problem Resolved 2019-06-07 22:30:52 [facility] Hodgkin's disease (disorder) H odgkin's disease (disorder) Resolved Problem 06/07/2019 [facility] Problem Resolved 2019-06-07 22:30:52 [facility] Essential hypertension (disorder) Essential hypertension (disorder) Resolved Problem 06/07/2019 [facility] Problem Resolved 2019-06-07 22:30:52 [facility] Neuropathy (disorder) Neur opathy (disorder) Resolved Problem 06/07/2019 affects legs [facility] Problem Resolved 2019-06-07 22:30:52 [facility] Thyroidectomy (procedure) Thyr oidectomy (procedure) Resolved Problem 06/07/2019 [facility] Problem Resolved 2019-06-07 22:30:52 [facility] Hodgkin's disease of extranodal AND/OR solid organ sit e (disorder) Hodgkin's disease of extranodal AND/OR solid organ site (disorder) Resolved Problem 08/31/2014 [facility] Problem Resolved 2014-08-31 04:37:25 [facility] Hodgkins lymphoma Hodg kins lymphoma Resolved Problem 09/29/2012 [facility] Problem Resolved 2012-09-29 21:26:47 [facility] Hypertension Hype rtension Resolved Problem 09/29/2012 [facility] Problem Resolved 2012-09-29 21:26:47 [facility] Thyroidectomy Thyr oidectomy Resolved Problem 09/29/2012 [facility] Problem Resolved 2012-09-29 21:26:47 [facility] Jp Fever (finding) Feve r (finding) Active Problem 06/07/2019 [facility] Problem Active 2019-06-07 22:30:52 [facility] Jp Dyspnea (finding) Dysp jovan (finding) Active Problem 06/07/2019 [facility] Problem Active 2019-06-07 22:30:52 Daina Trammell Non-Hodgkin lymphoma, no ICD-O subtype (morphologic ab normality) Non-Hodgkin lymphoma, no ICD-O subtype (morphologic abnormality) Active Problem 01/15/2016 [facility] Problem Active 2016-01-15 04:17:2 0 Daina Trammell [M]Non-Hodgkin's lymphoma [M]N on-Hodgkin's lymphoma Active Problem 09/29/2012 [facility] Problem Active 2012-09-29 21 :26:47 [facility] Jp Fever Feve r Active Problem 09/29/2012 [facility] Problem Active 2012-09-29 21:26:47 [facility] Jp Shortness of breath Shor tness of breath Active Problem 09/29/2012 [facility] Problem Active 2012-09-29 21:26:4 7 [facility] Jp ANEMIA NOS ANEM IA NOS Active [facility] Active 2014-06-24 17:17:00 [facility] CHEST PAIN NOS CHES T PAIN NOS Active [facility] Diagnosis Active 2014-06-24 17:17:00 [facility] RHABDOMYOLYSIS RHAB DOMYOLYSIS Active [facility] Active 2015-09-16 13:32:00 [facility] CHEST PAIN, UNSPECIFIED CHES T PAIN, UNSPECIFIED Active [facility] Active 2019-12-19 11:06:00 [facility] Jp ANEMIA, UNSPECIFIED ANEM IA, UNSPECIFIED Active [facility] Active 2019-12-19 11:06:00 Ct nora Orantesann Acute ischemic heart disease, unspecified Acute ischemic heart disease, unspecified 06/29/2018 01/12/2019 [facility] Problem 2018-06-29 05:05:11 2019-01-12 13:10:05 2019-01-12 13:10:05 [facility] Chest pain, unspecified Ches t pain, unspecified 03/20/2018 09/30/2018 [facility] Problem 2018-03-20 03:46:25 2018 13:54:12 2018-09-30 13:54:12 [facility] Discharge Diagnosis: UTI (urinary tract infection) Discharge Diagnosis: UTI (urinary tract infection) 01/12/2016 01/15/2016 [facility] Problem 2016-01-12 05:00:00 2016-01-15 04:17:20 2 04:17:20 [facility] Discharge Diagnosis: Microcytic anemia Discharge Diagnosis: Microcytic anemia 01/12/2016 01/15/2016 [facility] Problem 2016-01-12 05:00:00 2016-01-15 04:17:20 2016-01-15 04:17:20 [facility] [place] [facility] Diagnosis: Hyperglycemia Discharge Diagnosis: Hyperglycemia 01/12/2016 01/15/2016 [facility] Problem 2016-01-12 05:00:00 2016-01-15 04:17:20 2016-01-15 04:17:20 [facility] Dis[facility] Diagnosis: Menometrorrhagia Discharge Diagnosis: Menometrorrhagia 01/12/2016 01/15/2016 [facility] Problem 2016-01-12 05:00:00 2016-01-15 04:17:20 2016-01-15 04:17:20 [facility] Dis[facility] Diagnosis: Hepatitis Discharge Diagnosis: Hepatitis 01/12/2016 01/15/2016 [facility] Problem 20 17-01-10 05:00:00 2016-01-15 04:17:20 2016-01-15 04:17:20 [facility] Dis[facility] Diagnosis: Hyponatremia Discharge Diagnosis: Hyponatremia 01/12/2016 01/15/2016 [facility] Problem 2016-01-12 05:00:00 2016-01-15 04:17:20 2016-01-15 04:17:20 [facility] Dis[facility] Diagnosis: Dehydration Discharge Diagnosis: Dehydration 01/12/2016 01/15/2016 [facility] Problem 2016-01-12 05:00:00 2016-01-15 04:17:20 2016-01-15 04:17:20 [facility] [place] Dis[facility] Diagnosis: Hypothyroid Discharge Diagnosis: Hypothyroid 01/12/2016 01/15/2016 [facility] Problem 2016-01-12 05:00:00 2016-01-15 04:17:20 2016-01-15 04:17:20 [facility] [place] Allergies, Adverse Reactions, Alerts Allergy Name Allergy Type Status Severity Reaction(s) Onset Date Inacti ve Date Treating Clinician Comments Source vancomycin DA Active 2018-10-15 00:00:00 [facility] vancomycin DA Active 2018-03-11 00:00:00 [facility] vancomycin DA Active 2018-01-15 00:00:00 [facility] Vancomycin Analogues Drug Allergy Active Hives 2013-04-14 00:00:0 0 [facility] vancomycin vancomycin Active Ct mor[facility] Jp Family History Family Member Diagnosis Comments Start Date Stop Date Source Natural father Heart disease [facility] Natural mother Arthritis [facility] Natural mother Diabetes [facility] Natural mother Hypertension [facility] Social History Social Habit Start Date Stop Date Quantity Comments Source Sex Assigned At [facility] Alcohol Comment 2016-02-17 00:00:00 2016-02-17 00:00:00 socially on ce a month7 [facility] Social History 2014-03-16 21:37:32 2014-03-16 21:37:32 [facility] Smoking Status Start Date Stop Date Source Never smoker [facility] Medications Ordered Medication Name Filled Medication Name Start Date Stop Da te Current Medication? Ordering Clinician Indication Dosage Frequency Signature (SIG) Comments Components Source Tramadol Hcl (Ultram 50MG*) 50 Mg TAB Tramadol Hcl (Ultram 5 0MG*) 50 Mg TAB 2019-12-12 16:18:00 Yes 50 Every 6 Hours as n eeded for Pain [facility] Sevoflurane (Ultane) 250 Ml LIQUID Sevoflurane (Ultane) 250 Ml LIQUID 2019-12-12 15:52:00 Yes 50 Three Times A Day for Pain [facility] Cyclobenzaprine Hcl (Flexeril) 5 Mg TABLET Cyclobenzap rine Hcl (Flexeril) 5 Mg TABLET 2019-12-12 15:51:00 Yes 10 Every 8 Hours as needed for Pain [facility] zolpidem 5 mg oral tablet 2019-06-05 18:22:00 No 5 mg = 1 tab, PO, Bedtime, # 30 tab, 0 Refill(s) [facility] Glipizide 2.5 MG / Metformin hydrochloride 250 MG Oral Table t 2019-06-05 15:00:00 No 1 tab, Rou te: PO, Drug Form: TAB, Dosing Weight 100, kg, Daily, Start date: 06/05/19 9:00:00 [employer]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 [facility] Thyroxine 2019-06-05 12:30:00 No Notes: Take 1 hour before or 2 hours after meal; Enteral feeds may interefere with the absorption of this medication. (Same as: Levothroid, Synthroid) [facility] Aspirin 81 MG Enteric Coated Tablet 2019-06-05 03:00:00 No Notes: Do not crush or chew. 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 WASTE: F/P - Black; E - Municipal Trash Bin Stable for 28 days at room temperature. Expires in days from Date Daina Bhupendra mchugh Docusate 2019-06-04 23:00:00 No Notes: (Same as: Colace) (Do Not Crush) Daina Trammell sitagliptin 25 MG Oral Tablet [Januvia] 2019-06-04 22:09:00 Yes 25 mg = 1 tab, PO, Daily, # 30 tab, 0 Refill(s) Daina Trammell 0.5 ML dulaglutide 3 MG/ML Prefilled Syringe [Trulicity] 2019-06-04 22:09:00 Yes 1.5 mg, SUB-Q, 5X Day, 0 Refill( s) Daina Trammell RN please update h/w/a in ad hoc 2019-06-04 21:30:00 No RN please update h/w/a in ad hoc, reminder, Drug form: MISC, Route: MISC, Q30Min, 06/04/19 15:30:00 RETAIL ADVERTISING EXECUTIVE, Duration: 3 hr, Stop date: 06/04/19 18:00:00 RETAIL ADVERTISING EXECUTIVE, 0 Daina Trammell Benadryl 2019-06-04 21:20:00 No 50 mg, Route: IVP, ONCE, Dosing Weight 100, kg, PRN Allergic reaction, Start date: 06/04/19 15:20:00 RETAIL ADVERTISING EXECUTIVE Daina Trammell Dextrose 50% Syringe (D50W) 2019-06-04 20:22:00 No 12.5 gm, 25 mL, Route: IVP, Drug Form: INJ, Dosing Weight 100, kg, PRN, PRN Blood Glucose Results, Start date: 06/04/19 14:22:00 RETAIL ADVERTISING EXECUTIVE, Duration: 30 day, Stop date: 07/04/19 14:21:00 RETAIL ADVERTISING EXECUTIVE, 0 Daina Otf n Glucagon 2019-06-04 20:22:00 No 1 mg, Route: IM, Drug form: PDR/INJ, PRN, Dosing Weight 100, kg, PRN Blood Glucose Results, Start date: 06/04/19 14:22:00 RETAIL ADVERTISING EXECUTIVE, Duration: 30 day, Stop date: 07/04/19 14:21:00 RETAIL ADVERTISING EXECUTIVE, 0 Daina Trammell Ondansetron 2019-06-04 20:22:00 No Notes: (Same as: Zofran) MEDICATION WASTE Product Size: 4 mg Product Wasted: ___ mg Daina Trammell Acetaminophen 2019-06-04 20:22:00 No Notes: Do not exceed 4 gm/day. (Same as: Tylenol) Daina Trammell Sodium Chloride 0.9% (titrate) 250 mL 2019-06-04 20:06:00 N o 250 mL, Rate: To prime line and flush remaining blood products., Dosing Weight 100, kg, Route: IV, Total Volume: 250, Start Date: 06/04/19 14:06:00 RETAIL ADVERTISING EXECUTIVE, Duration: 1 day, Stop date: 06/05/19 14:05:00 RETAIL ADVERTISING EXECUTIVE, Replace Every: 24 hr, 0 Daina Trammell ketOROLAC 15 mg/mL injectable solution 2019-06-04 19:52:00 No 15 mg, Route: IVP, Drug form: INJ, ONCE, Dosing Weight 100, kg, Priority: STAT, Start date: 06/04/19 13:52:00 RETAIL ADVERTISING EXECUTIVE, Stop date: 06/04/19 13:52:00 RETAIL ADVERTISING EXECUTIVE Daina Trammell Ondansetron 2018-06-25 15:12:00 No Notes: (Same as: Zofran) MEDICATION WASTE Product Size: 4 mg Product Wasted: ___ mg Daina Trammell Morphine 2018-06-25 15:12:00 No Not es: (Same as:MORPhine Sulfate) Daina Trammell medroxyprogesterone acetate 10 MG Oral Tablet [Provera] 2018-03-13 17:09:00 Yes 10 mg = 1 tab, PO, Daily, # 14 tab, 0 Re fill(s) Daina Trammell Aspirin 81 MG Enteric Coated Tablet 2018-03-13 15:00:00 No Notes: Do not crush or chew. (Same As: Ecotrin) [facility] Sertraline 2018-03-13 14:00:00 No Notes: (S tre as: Zoloft) [facility] Glipizide 2.5 MG / Metformin hydrochloride 250 MG Oral Table t 2018-03-13 14:00:00 No 1 tab, Rou te: PO, Drug Form: TAB, Dosing Weight 93.182, kg, Daily, Start date: 03/13/18 9:00:00 CDT, Duration: 30 day, Stop date: 04/11/18 9:00:00 [facility] 2018-03-13 14:00:00 No Notes: (Same as: Glucophage) Take with meal [facility] Glucotrol 2018-03-13 12:30:00 No Notes: (Same as: Glucotrol) 30 min before meals. [facility] Jp Thyroxine 2018-03-13 11:30:00 No Notes: Take 1 hour before or 2 hours after meal; Enteral feeds may interefere with the absorption of this medication. (Same as: Levothroid) [facility] Insulin Lispro 2018-03-13 03:23:00 No Notes: (Same as: Humalog ) Roll in palms of hands gently; Do not shake `vigorously. "Single Patient Use Only " WASTE: F/P - Black; E - Municipal Trash Bin Stable for 28 days at room temperature. Expires in days from Date [facility] Jp Glucagon 2018-03-13 03:23:00 No 1 mg, Route: IM, Drug form: PDR/INJ, PRN, Dosing Weight 93.182, kg, PRN Blood Glucose Results, Start date: 03/12/18 22:23:00 CDT, Duration: 30 day, Stop date: 04/11/18 21:22:00 [facility] Jp Dextrose 50% Syringe 2018-03-13 03:23:00 No 25 gm, 50 mL, Route: IVP, Drug Form: INJ, Dosing Weight 93.182, kg, PRN, PRN Blood Glucose Results, Start date: 03/12/18 22:23:00 CDT, Duration: 30 day, Stop date: 04/11/18 21:22:00 [employer] [facility] zolpidem 2018-03-13 02:00:00 No Notes: (Patrick e As: Ambien) [facility] metoprolol tartrate 2018-03-13 02:00:00 No Notes: (Same as: Lopressor) [facility] Lipitor 2018-03-13 02:00:00 No Notes: (Same as: Lipitor) [facility] Saline Flush 0.9% 2018-03-13 02:00:00 No Notes: (Same as: BD Posiflush) Daina Trammell Provera 2018-03-13 02:00:00 No Notes: (Same as: Provera) Daina Trammell Lyrica 2018-03-13 00:02:00 No Notes: (Same as: Lyrica) Daina Trammell Saline Flush 0.9% 2018-03-12 23:34:00 No Notes: (Same as: BD Posiflush) Daina Trammell Ondansetron 2018-03-12 23:34:00 No Notes: ( Same as: Zofran) Daina Trammell Morphine 2018-03-12 23:34:00 No Not es: (Same as:MORPhine Sulfate) Daina Trammell Nitroglycerin 2018-03-12 23:34:00 No Notes: (Same as:Nitroquick, Nitrostat) "Do Not Crush" Sublingual tablet Daina Trammell Hydroxyzine Hydrochloride 25 MG Oral Tablet 2018-03-12 23:29:00 No Notes: (Same as: Atarax) Avoid alcohol. Daina Trammell Acetaminophen 325 MG / Hydrocodone Bitartrate 10 MG Or al Tablet [Frakes 10/325] 2018-03-12 23:29:00 No Note s: Do not exceed 4gm/day of acetaminophen. (Same as: Frakes 325/10) Daina Trammell Benadryl 2018-03-12 23:28:00 No Notes: (Patrick e as: Benadryl) Daina Trammell Sodium Chloride 0.9% (titrate) 250 mL 2018-03-12 22:38:00 N o 250 mL, Rate: To prime line and flush remaining blood products., Dosing Weight 93.182, kg, Route: IV, Total Volume: 250, Start Date: 03/12/18 17:38:00 CDT, Duration: 1 day, Stop date: 03/13/18 17:37:00 CDT, Replace Every: 24 hr Daina Trammell Acetaminophen 325 MG / Hydrocodone Bitartrate 10 MG Or al Tablet [Frakes 10/325] 2018-03-12 21:39:00 Yes 1 ta b, PO, Q6H, PRN Pain Score 6-10, 0 Refill(s) Daina Trammell levothyroxine 175 mcg (0.175 mg) oral tablet 2018-03-12 21:38:00 Yes 175 microgram = 1 tab, PO, Daily, 0 Refill(s) Daina Trammell sertraline 50 mg oral tablet 2018-03-12 21:37:00 Yes 50 mg = 1 tab, PO, Daily, 0 Refill(s) Daina Trammell Glipizide 2.5 MG / Metformin hydrochloride 250 MG Oral Table t 2018-03-12 21:37:00 Yes 1 tab, PO, Daily, 0 Refill(s) Daina Trammell clopidogrel 75 MG Oral Tablet [Plavix] 2018-03-12 21:37:00 No 75 mg = 1 tab, PO, Daily, 0 Refill(s) Daina Trammell Aspirin 81 MG Enteric Coated Tablet 2018-03-12 21:36:00 Yes 81 mg = 1 tab, PO, Daily, 0 Refill(s) Daina rodriguez zolpidem 5 mg oral tablet 2018-03-12 21:36:00 Yes 5 mg = 1 tab, PO, Bedtime, 0 Refill(s) Daina Trammell atorvastatin 80 MG Oral Tablet [Lipitor] 2018-03-12 21:36:00 Yes 80 mg = 1 tab, PO, Bedtime, 0 [facility] levothy[facility]ine 200 mcg (0.2 mg) oral tablet 2018-03-12 21:35:00 Yes 200 microgram = 1 tab, PO, Daily, 0 Refill(s) Daina Trammell Hydroxyzine Hydrochloride 25 MG Oral Tablet 2018-03-12 21:35:00 Yes 25 mg = 1 tab, PO, TID, PRN as needed for anxiety, 0 Refill(s) Daina Trammell pregabalin 75 MG Oral Capsule [Lyrica] 2018-03-12 21:34:00 Yes 75 mg = 1 cap, PO, BID, 0 Refill(s) Daina Trammell metoprolol succinate 25 mg oral capsule, extended release 2018-03-12 21:34:00 Yes 25 mg = 1 cap, PO, BID, 0 Refill (s) Daina Trammell Sodium Chloride 0.9% (Bolus) IV 2018-03-12 18:18:00 No 1,000 mL, 1000 ml/hr, Infuse Over: 1 hr, Route: IV, 1,000, Drug form: INJ, ONCE, Priority: STAT, Dosing Weight 90.455 kg, Start date: 03/12/18 13:18:00 CDT, Stop date: 03/12/18 13:18:00 CDT [facility] Jp Saline Flush 0.9% 2018-03-12 17:03:00 No Notes: (Same as: BD Posiflush) Daina Trammell Morphine 2017-03-06 19:09:00 No Not es: (Same as:MORPhine Sulfate) Daina Trammell Zofran 2017-03-06 19:09:00 No Notes: (Same as: Zofran) MEDICATION WASTE Product Size: 4 mg Product Wasted: ___ mg [facility] Jp Saline Flush 0.9% 2017-03-06 17:31:00 No Notes: (Same as: BD Posiflush) [facility] sertraline (ZOLOFT) 25 MG tablet 2017-02-25 19:00:41 Yes 25mg QD Take 25 mg by mouth daily. [facility] levothyroxine (SYNTHROID, LEVOTHROID) 200 MCG tablet 2 00:00:00 Yes 200ug Take 1 tablet ( 200 mcg total) by mouth Every morning on an empty stomach Total of 250 mcg daily. [facility] insulin glargine 100 unit/mL (3 mL) InPn 2016-09-24 00:00:00 Yes 5U QD Inject 5 Units subcutaneously every morning. [facility] Metformin hydrochloride 500 MG Oral Tablet 2016-09-22 22:00:00 No Notes: (Same as: Glucophage) Take with meal 48hrs after contast - start at 1700 09/22 [facility] Jp metoprolol tartrate 25 mg oral tablet 2016-09-21 19:17:00 Y es 25 mg = 1 tab, PO, TID, # 90 tab, 1 Refill(s) [facility] metoprolol tartrate 25 mg oral tablet 2016-09-21 19:13:00 N o 25 mg = 1 tab, PO, Q8Hnow, 0 Refill(s) [facility] liothyronine 5 mcg oral tablet 2016-09-21 19:13:00 Yes 5 microgram = 1 tab, PO, Q630AM, 0 Refill(s) [facility] prasugrel 10 mg oral tablet 2016-09-21 19:13:00 Yes 10 mg = 1 tab, PO, Daily, 0 Refill(s) Daina Trammell atorvastatin 40 mg oral tablet 2016-09-21 19:13:00 Yes 80 mg = 2 tab, PO, Bedtime, 0 Refill(s) Daina rodriguez Metformin hydrochloride 500 MG Oral Tablet 2016-09-21 15:48:00 Yes 500 mg, PO, BID, # 60 tab, 0 Refill(s) Hans Trammell Glipizide 10 MG Oral Tablet 2016-09-21 15:47:00 Yes 10 mg = 1 tab, PO, BID-Before Meals, # 60 tab, 0 Refill(s) Daina Trammell Venofer 2016-09-21 14:00:00 No Notes: Each 5ml contains 100mg elemental iron. Mix with NS Non-Formulary (Same as:Venofer) Administer IV only. MEDICATION WASTE Product Size: 100 mg Product Wasted: ___ mg Daina Trammell Glucotrol 2016-09-21 12:30:00 No Notes: (Same as: Glucotrol) 30 min before meals. Daina Trammell Insulin, Aspart, Human 2016-09-21 04:13:00 No Notes: Roll in palms of hands gently; Do not shake vigorously. (Same as: NovoLOG) "single patient use only" WASTE: F/P - Black; E - Municipal Trash Bin Stable for 28 days at room temperature. Expires in days from Date Daina Trammell Dextrose 50% Syringe 2016-09-21 04:13:00 No 12.5 gm, 25 mL, Route: IVP, Drug Form: INJ, Dosing Weight 97.273, kg, PRN, PRN Blood Glucose Results, Start date: 09/20/16 23:13:00 CDT, Duration: 30 day, Stop date: 10/20/16 23:12:00 CDT Daina Trammell Glucagon 2016-09-21 04:13:00 No 1 mg, Route: IM, Drug form: PDR/INJ, PRN, Dosing Weight 97.273, kg, PRN Blood Glucose Results, Start date: 09/20/16 23:13:00 CDT, Duration: 30 day, Stop date: 10/20/16 23:12:00 CDT Daina Trammell Venofer 2016-09-20 22:06:00 No Notes: Each 5ml contains 100mg elemental iron. Mix with NS Non-Formulary (Same as:Venofer) Administer IV only. MEDICATION WASTE Product Size: 100 mg Product Wasted: ___ mg Daina Trammell Effient 2016-09-20 14:00:00 No 60kg, without history of TIA/Ischemic stroke and without likely bypass surgery Daina Trammell Triiodothyronine 2016-09-20 11:30:00 No Notes: (Same as: Cytomel) Daina Trammell Thyroxine 2016-09-20 11:30:00 No Notes: Take 1 hour before or 2 hours after meal; Enteral feeds may interefere with the absorption of this medication. (Same as: Levothroid) [facility] Lyrica 2016-09-20 02:00:00 No Notes: (Same as: Lyrica) Daina Trammell atorvastatin 2016-09-20 02:00:00 No Notes: (Same as: Lipitor) [facility] Jp ferrous sulfate 2016-09-19 22:00:00 No Notes: Give with food. "Do Not Crush" [facility] Jp Glucotrol 2016-09-19 21:30:00 No Notes: (Same as: Glucotrol) 30 min before meals. Daina Trammell Insulin, Aspart, Human 2016-09-19 18:50:00 No Notes: Roll in palms of hands gently; Do not shake vigorously. (Same as: NovoLOG) "single patient use only" WASTE: F/P - Black; E - Municipal Trash Bin Stable for 28 days at room temperature. Expires in days from Date [facility] Jp Dextrose 50% Syringe 2016-09-19 18:50:00 No 12.5 gm, 25 mL, Route: IVP, Drug Form: INJ, Dosing Weight 97.273, kg, PRN, PRN Blood Glucose Results, Start date: 09/19/16 13:50:00 CDT, Duration: 30 day, Stop date: 10/19/16 13:49:00 CDT Daina Trammell Glucagon 2016-09-19 18:50:00 No 1 mg, Route: IM, Drug form: PDR/INJ, PRN, Dosing Weight 97.273, kg, PRN Blood Glucose Results, Start date: 09/19/16 13:50:00 CDT, Duration: 30 day, Stop date: 10/19/16 13:49:00 CDT Daina Trammell metoprolol tartrate 2016-09-19 18:45:00 No Notes: (Same as: Lopressor) Daina Trammell Docusate Sodium 100 MG Oral Capsule [Colace] 2016-09-19 18:43:00 No Notes: (Same as: Colace) (Do Not Crush) Daina Trammell Lovenox 2016-09-19 18:02:00 No 97 mg, Route: SUB-Q, Drug form: INJ, ONCE, Dosing Weight 97.273, kg, Priority: STAT, Start date: 09/19/16 13:02:00 CDT, Stop date: 09/19/16 13:02:[address] nora Trammell Ondansetron 2016-09-19 15:46:00 No 4 mg, Route: IVP, Drug form: INJ, ONCE, Dosing Weight 97.273, kg, Priority: STAT, Start date: 09/19/16 10:46:00 CDT, Stop date: 09/19/16 10:46:[address] nora Trammell Morphine 2016-09-19 15:46:00 No 4 mg, Route: IVP, ONCE, Dosing Weight 97.273, kg, Priority: STAT, Start date: 09/19/16 10:46:00 CDT, Stop date: 09/19/16 10:46:00 CDT Daina Trammell Aspirin 2016-09-19 15:46:00 No 325 mg, Route: PO, Drug form: TAB, ONCE, Dosing Weight 97.273, kg, Priority: STAT, Start date: 09/19/16 10:46:00 CDT, Stop date: 09/19/16 10:46:[address] nora Trammell levothyroxine 300 mcg (0.3 mg) oral tablet 2016-01-13 01:13:00 Yes 300 microgram = 1 tab, PO, Daily, # 30 tab, 1 Refill(s) Daina Trammell Docusate Sodium 100 MG Oral Capsule [Colace] 2016-01-13 01:13:00 Yes 100 mg = 1 cap, PO, BID, PRN Constipation, # 60 cap, 0 Refill(s) Daina Jp ferrous sulfate 325 mg oral enteric coated tablet 2016-01-13 01:13:00 Yes 325 mg = 1 tab, PO, TID, Start with 1 tab daily x 3 days, advance as tolerate, use stool softners and laxatives as needed for constipation, # 90 tab, 3 Refill(s) Daina Trammell Sulfamethoxazole 800 MG / Trimethoprim 160 MG Oral Tablet [B actrim] 2016-01-13 01:12:00 Yes 1 tab, PO, BID, X 10 day, # 20 tab, 0 Refill(s) Daina Jp Rocephin 2016-01-12 23:22:00 No Notes: (Same As: Rocephin). Use with 100 mL NS and infuse over 30 min MEDICATION WASTE Product Size: 1000 mg Product Wasted: ___ mg Daina Trammell Pepcid 2016-01-12 20:50:00 No Notes: (Same as: Pepcid) Can be dilute in 5-10cc NS IVP: Slow IV push over at least 2 minutes. Daina Trammell Bentyl 2016-01-12 20:50:00 No Notes: (Same as: Lois) Daina Trammell sodium chloride 0.9% INJ 250 mL 2016-01-12 20:30:00 No 250 mL, Rate: inbound call center agent for use with blood product administration, Dosing Weight 104.545, kg, Route: IV, Total Volume: 250, Start Date: 01/12/16 15:30:00 CDT, Duration: 1 day, Stop date: 01/13/16 15:29:00 CDT, Replace Every: 24 hr Daina Trammell Sodium Chloride 0.154 MEQ/ML Injectable Solution 2016-01-12 20:3 0:00 No 1,000 mL, 1,000 ml/hr, Infus e Over: 1 hr, Route: IV, 1,000, Drug form: INJ, ONCE, Priority: STAT, Dosing Weight 104.545 kg, Start date: 01/12/16 15:30:00 CDT, Duration: 1 doses or times, Stop date: 01/12/16 15:30:00 CDT Daina Trammell levothyroxine 100 mcg (0.1 mg) intravenous injection 09-15 19:26:00 No 50 microgram, IVP, Q630AM, # 30 tab, 0 R efill(s) Daina Trammell levothyroxine 200 mcg (0.2 mg) oral tablet 2015-09-16 19:26:00 Yes 200 microgram = 1 tab, PO, Daily, # 30 tab, 0 Refill(s) Daina Trammell cefpodoxime 200 MG Oral Tablet [Vantin] 2015-09-16 19:26:00 Yes 200 mg = 1 tab, PO, Q12H, X 7 day, # 14 tab, 0 Refill(s) Daina Trammell Rocephin 2015-09-15 23:00:00 No Notes: (Same As: Rocephin). Use with 100 mL NS and infuse over 30 min MEDICATION WASTE Product Size: 1000 mg Product Wasted: ___ mg [facility] Jp Diphenhydramine 2015-09-15 22:54:00 No 25 mg, 1 tab, Route: PO, Drug form: TAB, Q6H, Dosing Weight 115, kg, PRN Itching, Start date: 09/15/15 17:54:00 CDT, Duration: 30 day, Stop date: 10/15/15 17:53:00 CDT [facility] Jp Simethicone 2015-09-15 22:54:00 No Notes: ( Same as: Mylicon) [facility] dextromethorphan-guaiFENesin 10 mg-100 mg/5 mL oral liquid 2015-09-15 22:54:00 No Notes: (de xtromethorphan-guaifenesin 10-100mg/5ml 10 ml oral SOLN ud) (Same as: Robitussin DM) [facility] Ondansetron 2015-09-15 22:54:00 No Notes: (Same as: Zofran) MEDICATION WASTE Product Size: 4 mg Product Wasted: ___ mg [facility] Jp Milk of Magnesia 2015-09-15 22:54:00 No Notes: (Same as: Milk of Magnesia, MOM) [facility] Bisacodyl 2015-09-15 22:54:00 No Notes: (Same As: Dulcolax, Bisco-Lax) [facility] Alprazolam 2015-09-15 22:54:00 No Notes: With food or milk (Same as: Xanax) Daina Trammell Al hydroxide/Mg hydroxide/simethicone 200 mg-200 mg-20 mg/5 mL oral suspension 2015-09-15 22:54:00 No Note s: (aluminum hydroxide-magnesium hyd- simethicone 864-005-61hb/5ml 30 ml ud CHAZ) Daina Orantesann Temazepam 2015-09-15 22:54:00 No Notes: (Sa me As: Restoril) [facility] Jp Acetaminophen 2015-09-15 22:54:00 No Notes: Do not exceed 4 gm/day. (Same as: Tylenol) [facility] Jp lisinopril 10 mg oral tablet 2015-09-15 13:22:00 Yes 10 mg = 1 tab, PO, Daily, # 30 tab, 0 Refill(s) Vianeyoria l Jp Glucotrol 2015-09-15 12:30:00 No Notes: (Same as: Glucotrol) 30 min before meals. [facility] Jp Thyroxine 2015-09-15 11:30:00 No Notes: Take 1 hour before or 2 hours after meal; Enteral feeds may interefere with the absorption of this medication. (Same as: Levothroid) [facility] Synthroid 2015-09-15 11:30:00 No Notes: (Same as: Synthroid) Reconstitute with 5ml of NS. Final concentration = 20 micrograms/ml. Use immediately after reconstitution and discard remaining solution. [facility] Jp Glucagon 2015-09-15 03:59:00 No 1 mg, Route: IM, Drug form: PDR/INJ, PRN, Dosing Weight 104.545, kg, PRN Blood Glucose Results, Start date: 09/14/15 22:59:00 CDT, Duration: 30 day, Stop date: 10/14/15 22:58:00 CDT [facility] Dextrose 50% Syringe 2015-09-15 03:59:00 No 25 gm, 50 mL, Route: IVP, Drug Form: INJ, Dosing Weight 104.545, kg, PRN, PRN Blood Glucose Results, Start date: 09/14/15 22:59:00 CDT, Duration: 30 day, Stop date: 10/14/15 22:58:00 CDT [facility] Insulin, Aspart, Human 2015-09-15 03:59:00 No Notes: Roll in palms of hands gently; Do not shake vigorously. (Same as: NovoLOG) "single patient use only" WASTE: F/P - Black; E - Municipal Trash Bin Stable for 28 days at room temperature. Expires in days from Date Daina Trammell Venofer 2015-09-15 03:57:00 No Notes: Each 5ml contains 100mg elemental iron. Mix with NS (Same as:Venofer) Administer IV only. MEDICATION WASTE Product Size: 100 mg Product Wasted: ___ mg Daina Trammell Saline Flush 0.9% 2015-09-15 02:43:00 No Notes: (Same as: BD Posiflush) Daina Trammell Sodium Chloride 0.154 MEQ/ML Injectable Solution 2015-09-15 02:4 3:00 No 1,000 mL, Rate: 150 ml/hr, I nfuse over: 6.7 hr, Route: IV, Dosing Weight 104.545 kg, Total Volume: 1,000, Start date: 09/14/15 21:43:00 CDT, Duration: 30 day, Stop date: 10/14/15 21:42:00 CDT pearl Trammell Morphine 2015-09-15 02:43:00 No Not es: (Same as:MORPhine Sulfate) Daina Trammell Ondansetron 2015-09-15 02:43:00 No Notes: (Same as: Zofran) MEDICATION WASTE Product Size: 4 mg Product Wasted: ___ mg Daina Trammell Sodium Chloride 0.154 MEQ/ML Injectable Solution 2015-09-14 23:5 7:00 No 1,000 mL, 1,000 ml/hr, Infus e Over: 1 hr, Route: IV, 1,000, Drug form: INJ, ONCE, Priority: STAT, Dosing Weight 104.545 kg, Start date: 09/14/15 18:57:00 CDT, Duration: 1 doses or times, Stop date: 09/14/15 18:57:00 CDT Daina Trammell Saline Flush 0.9% 2015-09-14 20:01:00 No Notes: (Same as: BD Posiflush) [facility] pantoprazole 40 MG Enteric Coated Tablet [Protonix] 2013-06 20:02:00 Yes 40 mg = 1 tab, PO, BID, # 60 tab, 1 Refi ll(s) [facility] sitagliptin 100 MG Oral Tablet [Januvia] 2014-03-20 20:02:00 Yes 100 mg = 1 tab, PO, Daily, # 30 tab, 1 Refill(s) [facility] Flumazenil 2014-03-19 17:26:00 No Notes: (S tre as: Romazicon) [facility] Naloxone 2014-03-19 17:26:00 No Notes: Same as Narcan [facility] Bisacodyl 2014-03-19 00:04:00 No Notes: (Same As: Dulcolax, Correctol) (Do Not Crush) "Do Not Crush" [facility] magnesium citrate 2014-03-19 00:02:00 No Notes: (Same as: Citrate of Magnesia) [facility] Sodium Chloride 0.154 MEQ/ML Injectable Solution 2014-03-18 18:4 6:00 No 500 mL, Rate: 25 ml/hr, Infu se over: 20 hr, Route: IV, Dosing Weight 108.636 kg, Total Volume: 500, Start date: 03/18/14 13:46:00, Duration: 1 day, Stop date: 03/19/14 13:45:00 [facility] Dulcolax Laxative 2014-03-18 13:08:00 No Notes: (Same As: Dulcolax, Correctol) (Do Not Crush) "Do Not Crush" [facility] magnesium citrate 2014-03-18 13:08:00 No Notes: (Same as: Citrate of Magnesia) [facility] Thyroxine 2014-03-18 11:30:00 No Notes: Take 1 hour before or 2 hours after meal; Enteral feeds may interefere with the absorption of this medication. (Same as: Levothroid) Surjit kern Jp Insulin, Aspart, Human 2014-03-18 02:46:00 No 10 unit, Route: SUB-Q, ONCE, Dosing Weight 108.636, kg, Start date: 03/17/14 21:46:00, Stop date: 03/17/14 21:46:00 [facility] Docusate Sodium 100 MG Oral Capsule 2014-03-18 01:00:00 No Notes: (Same as: Colace) (Do Not Crush) Kael Trammell Golytely 2014-03-17 23:45:00 No Notes: (polyethylene glycol electrolyte solution 4 Liter bottle) (Same as: Ct Oliveira) [facility] Dexamethasone 2014-03-17 18:18:00 No Notes: Concentration: 4mg/ml [facility] Pepcid 2014-03-17 18:17:00 No Notes: (Same as: Pepcid) Can be dilute in 5-10cc NS IVP: Slow IV push over at least 2 minutes. [facility] InFed 2014-03-17 18:15:00 No Notes: (Same as:DexFerrum) Non-Formulary [facility] Benadryl 2014-03-17 18:15:00 No Notes: (Patrick e as: Benadryl) [facility] InFed 2014-03-17 18:14:00 No Notes: (Same as:DexFerrum) Non-Formulary [facility] Influenza Virus Vaccine, Inactivated A-B [id number] (H3N2)-like virus ([id number] [facility] [id number]) strain / Influenza Virus Vaccine, Inactivated [id number], IVR-148 (H1N1) strain / Influenza Virus Vaccine, Inactivated, [id number]-lik 2014-03-17 14:00:00 No Notes: (Same as: Fluzone Quadrivalent) [facility] pneumococcal capsular polysaccharide typ e 1 vaccine / pneumococcal capsular polysaccharide type 10A vaccine / pneumococcal capsular polysaccharide type 11A vaccine / pneumococcal capsular polysaccharide type 12F vaccine / pneumococcal capsular polysacchar 2014-03-17 14:00:00 No Notes: (Same as: Pneumovax 23) Refrigerate [facility] nitroglycerin 0.4 mg sublingual tablet 2014-03-16 22:59:00 No Notes: (Same as:Nitroquick, Nitrostat) "Do Not Crush" Sublingual tablet [facility] atropine 2014-03-16 22:59:00 No 0.5 mg, 5 mL, Route: IVP, Drug form: INJ, PRN, PRN Bradycardia, Start date: 03/16/14 17:59:00, Duration: 30 day, Stop date: 04/15/14 16:58:00 [facility] Glucotrol 2014-03-16 21:54:00 Yes 5 mg, PO, BID, 0 Refill(s) [facility] Thyroxine 2014-03-16 21:54:00 Yes 200 microgram, PO, Daily, 0 Refill(s) [facility] Zofran 2014-03-16 21:23:00 No Notes: (Same as: Zofran) [facility] Jp Benadryl 2014-03-16 21:16:00 No 25 mg, 1 tab, Route: PO, Drug form: TAB, ONCE, Dosing Weight 108.636, kg, PRN Blood Transfusion, Start date: 03/16/14 16:16:00 [facility] Lovenox 2014-03-16 20:00:00 No Notes: (Same as: Lovenox) [facility] Jp Insulin, Aspart, Human 2014-03-16 19:30:00 No Notes: Roll in palms of hands gently; Do not shake vigorously. (Same as: NovoLOG) "single patient use only" Stable for 28 days at room temperature. Expires in days from Date [facility] Jp Dextrose 50% Syringe 2014-03-16 19:30:00 No 25 gm, 50 mL, Route: IVP, Drug Form: INJ, Dosing Weight 107.727, kg, PRN, PRN Blood Glucose Results, Start date: 03/16/14 14:30:00, Duration: 30 day, Stop date: 04/15/14 13:29:00 [facility] Jp Glucagon 2014-03-16 19:30:00 No 1 mg, Route: IM, Drug form: PDR/INJ, PRN, Dosing Weight 107.727, kg, PRN Blood Glucose Results, Start date: 03/16/14 14:30:00, Duration: 30 day, Stop date: 04/15/14 13:29:00 [facility] Nitroglycerin 0.4 MG Sublingual Tablet [Nitrostat] 2014-03-04 3 19:18:00 No Notes: (Same as:Nitroquick, Nitr ostat) "Do Not Crush" Sublingual tablet [facility] Morphine 2014-03-16 19:17:00 No Not es: (Same as:MORPhine Sulfate) [facility] Ambien 2014-03-16 19:17:00 No Notes: (Same As: Ambien) [facility] Acetaminophen 325 MG / Hydrocodone Bitartrate 5 MG Oral Tabl et [Frakes 5/325] 2014-03-16 19:17:00 No Notes: (Same as: Frakes 325/5) Do not exceed 4gm/day of acetaminophen. [facility] nn Zofran 2014-03-16 19:17:00 No Notes: (Same as: Zofran) [facility] Tylenol 2014-03-16 19:17:00 No Notes: Do not exceed 4 gm/day. (Same as: Tylenol) [facility] Levaquin 2012-09-28 02:00:00 No [place] 500 mg, 2 tab, Route: PO, Drug form: TAB, Daily, Start date: 09/27/12 21:00:00, Duration: 30 day, Stop date: 10/26/12 21:00:00 [facility] Lopressor 2012-09-27 03:55:00 No [place] 50 mg, 1 tab, Route: PO, Drug form: TAB, Q12H, Priority: STAT, Start date: 09/26/12 22:55:00, Duration: 30 day, Stop date: 10/26/12 21:00:00 [facility] Sodium Chloride 0.45% IV 1,000 mL 2012-09-27 03:53:00 No Darin [place] 1,000 mL, Rate: 100 ml/hr, Infuse over: 10 hr, Route: IV, kg, Total Volume: 1,000, Start date: 09/26/12 22:53:00, Duration: 2 doses or times, Stop date: 09/27/12 18:52:00 [facility] Tylenol 2012-09-27 01:45:00 No [place] 650 mg, 2 tab, Route: PO, Drug form: TAB, Q6H, PRN Headache, Start date: 09/26/12 20:45:00, Duration: 30 day, Stop date: 10/26/12 20:44:00 Eamon louise Jp metoprolol 2012-09-26 14:00:00 No [place] 50 mg, 1 tab, Route: PO, Drug form: ERTAB, Daily, Start date: 09/26/12 9:00:00, Duration: 30 day, Stop date: 10/25/12 9:00:00 [facility] Her lee Levothroid 2012-09-26 11:30:00 No [place] 175 microgram, 1 tab, Route: PO, Drug form: TAB, Q630AM, Start date: 09/26/12 6:30:00, Duration: 30 day, Stop date: 10/25/12 6:30:00 Kael Trammell Sodium Chloride 0.9% IV 2012-09-26 08:00:00 No Darin Germán leiva IV, 0 ml/hr, ONCALL, Start date: 09/26/12 3:00:00, Duration: 1, 250 ml [facility] Jp Zofran 2012-09-26 06:42:00 No Darin [place] 4 mg, 2 mL, Route: IVP, Drug form: INJ, Q2H, PRN Nausea, Start date: 09/26/12 1:42:00, Duration: 30 day, Stop date: 10/26/12 1:41:00 [facility] rosa K-Dur 20 2012-09-26 00:24:00 No Darin [place] 40 mEq, 2 tab, Route: PO, Drug form: ERTAB, PRN, PRN Blood Transfusion, Start date: 09/25/12 19:24:00, Duration: 1 day, Stop date: 09/26/12 19:23:[facility] 2012-09-26 00:23:00 No [place] 10 mg, 1 mL, Route: IV, Drug form: INJ, PRN, PRN Blood Transfusion, Start date: 09/25/12 19:23:00, Duration: 1 day, Stop date: 09/26/12 19:22:00 [facility] Sodium Chloride 0.45% IV 1,000 mL 2012-09-26 00:23:00 No Darin [place] 1,000 mL, Rate: 100 ml/hr, Infuse over: 10 hr, Route: IV, kg, Total Volume: 1,000, Start date: 09/25/12 19:23:00, Duration: 2 doses or times, Stop date: 09/26/12 15:22:00 [facility] Jp atropine 2012-09-26 00:21:00 No Darin [place] 0.5 mg, 5 mL, Route: IVP, Drug form: INJ, PRN, PRN Bradycardia, Start date: 09/25/12 19:21:00, Duration: 30 day, Stop date: 10/25/12 19:20:00 [facility] [place] Macrobid 100 mg oral capsule 2012-09-22 23:53:41 Yes Cal Rodriguez 100 mg, 1 cap, PO, BID, 14 cap, Substitution Allowed [facility] Sodium Chloride 0.9% (Bolus) IV 1,000 mL 2012-09-22 21:18: 00 No Cal Gage Jennifer 1,000 mL, Rate: 1,000 ml/hr, Infuse over: 1 hr, Route: IV, kg, Total Volume: 1,000, Priority: STAT, Start date: 09/22/12 16:18:00, Duration: 1 doses or times, Stop date: 09/22/12 17:17:00, Bolus DoseBolus Dose [facility] Atorvastatin Calcium Atorvastatin Calcium Yes 20 Bedtime [facility] Dulaglutide (Trulicity) 1.5 Mg/0.5 Ml PEN.INJCTR Dulag lutide (Trulicity) 1.5 Mg/0.5 Ml PEN.INJCTR Yes Daily [facility] Empagliflozin (Jardiance) 10 Mg TABLET Empagliflozin (Jardiance) 10 Mg TABLET Yes Daily [facility] Glipizide Glipizide Yes 5 Daily [facility] Levothyroxine Sodium (Synthroid) 100 Mcg TAB Levothyro xine Sodium (Synthroid) 100 Mcg TAB Yes 200 Today At 6:00AM [facility] Lisinopril Lisinopril Yes 10 Daily [facility] Metformin Hcl Metformin Hcl Yes 500 Twice A Day [facility] Sertraline Hcl Sertraline Hcl Yes 50 Daily [facility] Zolpidem Tartrate (Ambien) 10 Mg TABLET Zolpidem Tartrate (A mbien) 10 Mg TABLET Yes 10 Bedtime [facility] Vital Signs Vital Name Observation Time Observation Value Comments Source Weight 2019-12-12 15:27:00 220 [lb_av] [facility] BMI (Body Mass Index) 2019-12-12 15:27:00 39.0 kg/m2 [facility] Temperature Oral (F) 2019-06-05 18:05:00 97.9 F [facility] Heart Rate 2019-06-05 18:05:00 [facility] Respitory Rate 2019-06-05 18:05:00 [facility] Systolic (mm Hg) 2019-06-05 18:05:00 Jayme [facility] [place] Diastolic (mm Hg) 2019-06-05 18:05:00 [facility] [place] Temperature Oral (F) 2019-06-05 13:41:00 97.7 F [facility] [place] Heart Rate 2019-06-05 13:41:00 [facility] Respitory Rate 2019-06-05 13:41:00 [facility] Systolic (mm Hg) 2019-06-05 13:41:00 [facility]me [facility] Diastolic (mm Hg) 2019-06-05 13:41:00 [facility] Temperature Oral (F) 2019-06-05 10:14:00 97.6 F [facility] Heart Rate 2019-06-05 10:14:00 [facility] Respitory Rate 2019-06-05 10:14:00 [facility] Systolic (mm Hg) 2019-06-05 10:14:00 [facility]me [facility] Diastolic (mm Hg) 2019-06-05 10:14:00 [facility] [place] Height 2019-06-04 21:19:00 162.56 cm [facility] Weight 2019-06-04 21:19:00 [facility] BMI Calculated 2019-06-04 21:19:00 [facility] Weight 2019-06-04 16:38:00 [facility] Systolic (mm Hg) 2018-06-25 18:00:00 Jayme [facility] Diastolic (mm Hg) 2018-06-25 18:00:00 [facility] Respitory Rate 2018-06-25 18:00:00 [facility] [place] Systolic (mm Hg) 2018-06-25 17:14:00 Jayme rial Pj Diastolic (mm Hg) 2018-06-25 17:14:00 [facility] Respitory Rate 2018-06-25 17:14:00 [facility] [place] Heart Rate 2018-06-25 17:14:00 [facility] [place] Height 2018-06-25 14:20:00 162.56 cm [facility] Respitory Rate 2018-06-25 14:20:00 [facility] Heart Rate 2018-06-25 14:20:00 [facility] Temperature Oral (F) 2018-06-25 14:20:00 98.6 F [facility] BMI Calculated 2018-06-25 14:20:00 [facility] [place] Weight 2018-06-25 14:20:00 [facility] Systolic (mm Hg) 2018-06-25 14:20:00 Jayme rial [place] Diastolic (mm Hg) 2018-06-25 14:20:00 [facility] Respitory Rate 2018-03-13 16:28:00 [facility] Systolic (mm Hg) 2018-03-13 16:28:00 Jayme rial [place] Diastolic (mm Hg) 2018-03-13 16:28:00 [facility] [place] Heart Rate 2018-03-13 16:28:00 [facility] Temperature Oral (F) 2018-03-13 16:28:00 98 F [facility] Systolic (mm Hg) 2018-03-13 12:17:00 Jayme rial [place] Diastolic (mm Hg) 2018-03-13 12:17:00 [facility] [place] Respitory Rate 2018-03-13 12:17:00 [facility] [place] Temperature Oral (F) 2018-03-13 12:17:00 98 F [facility] Heart Rate 2018-03-13 12:17:00 [facility] Heart Rate 2018-03-13 08:46:00 [facility] Systolic (mm Hg) 2018-03-13 08:46:00 Jayme rial [place] Diastolic (mm Hg) 2018-03-13 08:46:00 [facility] Respitory Rate 2018-03-13 08:46:00 [facility] Temperature Oral (F) 2018-03-13 08:46:00 97.8 F [facility] Height 2018-03-12 22:11:00 162.56 cm [facility] BMI Calculated 2018-03-12 22:11:00 [facility] [place] Weight 2018-03-12 22:11:00 [facility] [place] Respitory Rate 2017-03-06 21:30:00 [facility] [place] Systolic (mm Hg) 2017-03-06 20:30:00 Jayme [facility]p Diastolic (mm Hg) 2017-03-06 20:30:00 [facility] Respitory Rate 2017-03-06 20:30:00 [facility] Respitory Rate 2017-03-06 19:30:00 [facility] [place] Systolic (mm Hg) 2017-03-06 19:30:00 Jayme rial [place] Diastolic (mm Hg) 2017-03-06 19:30:00 [facility] [place] Systolic (mm Hg) 2017-03-06 18:30:00 Jayme [facility] Diastolic (mm Hg) 2017-03-06 18:30:00 [facility] Height 2017-03-06 17:24:00 160.02 cm [facility] BMI Calculated 2017-03-06 17:24:00 [facility] [place] Temperature Oral (F) 2017-03-06 17:24:00 98.9 F [facility] Weight 2017-03-06 17:24:00 [facility] Heart Rate 2017-03-06 17:24:00 [facility] [place] Systolic (mm Hg) 2016-09-21 16:00:00 Jayme [facility] Diastolic (mm Hg) 2016-09-21 16:00:00 [facility] Heart Rate 2016-09-21 16:00:00 [facility] [place] Respitory Rate 2016-09-21 16:00:00 [facility] [place] Temperature Oral (F) 2016-09-21 16:00:00 98.1 F [facility] [place] Systolic (mm Hg) 2016-09-21 12:00:00 Jayme [facility]p Diastolic (mm Hg) 2016-09-21 12:00:00 [facility] [place] Respitory Rate 2016-09-21 12:00:00 [facility] Heart Rate 2016-09-21 12:00:00 [facility] Temperature Oral (F) 2016-09-21 12:00:00 97.8 F [facility] [place] Systolic (mm Hg) 2016-09-21 11:00:00 Jayme [facility] Diastolic (mm Hg) 2016-09-21 11:00:00 [facility] Heart Rate 2016-09-21 11:00:00 [facility] [place] Respitory Rate 2016-09-21 09:00:00 [facility] Temperature Oral (F) 2016-09-21 09:00:00 98.5 F [facility] [place] Weight 2016-09-19 15:02:00 [facility] BMI Calculated 2016-09-19 15:02:00 [facility] [place] Height 2016-09-19 15:02:00 162.56 cm [facility] Systolic (mm Hg) 2016-01-13 01:22:00 Jayme [facility] Diastolic (mm Hg) 2016-01-13 01:22:00 [facility] [place] Heart Rate 2016-01-13 01:22:00 [facility] Respitory Rate 2016-01-13 01:22:00 [facility] Temperature Oral (F) 2016-01-13 01:22:00 97.8 F [facility] Respitory Rate 2016-01-13 00:02:00 [facility] Heart Rate 2016-01-13 00:02:00 [facility] [place] Systolic (mm Hg) 2016-01-13 00:02:00 Jayme [facility]p Diastolic (mm Hg) 2016-01-13 00:02:00 [facility] Temperature Oral (F) 2016-01-13 00:02:00 97.8 F [facility] [place] Heart Rate 2016-01-12 22:28:00 [facility] Respitory Rate 2016-01-12 22:28:00 [facility] [place] Systolic (mm Hg) 2016-01-12 22:28:00 Jayme [facility] [place] Diastolic (mm Hg) 2016-01-12 22:28:00 [facility] [place] BMI Calculated 2016-01-12 17:48:00 [facility] Weight 2016-01-12 17:48:00 [facility] [place] Height 2016-01-12 17:48:00 162.56 cm [facility] Temperature Oral (F) 2016-01-12 17:48:00 98.4 F [facility] Systolic (mm Hg) 2015-09-16 17:20:00 Jayme [facility] Diastolic (mm Hg) 2015-09-16 17:20:00 [facility] [place] Heart Rate 2015-09-16 17:20:00 [facility] Temperature Oral (F) 2015-09-16 17:20:00 97.7 F [facility] Systolic (mm Hg) 2015-09-16 13:00:00 Jayme [facility] Diastolic (mm Hg) 2015-09-16 13:00:00 [facility] Heart Rate 2015-09-16 13:00:00 [facility] Temperature Oral (F) 2015-09-16 13:00:00 97.3 F [facility] Temperature Oral (F) 2015-09-16 08:59:00 98.1 F [facility] Respitory Rate 2015-09-16 08:59:00 [facility] [place] Heart Rate 2015-09-16 08:59:00 [facility] Systolic (mm Hg) 2015-09-16 08:59:00 Jayme rial [place] Diastolic (mm Hg) 2015-09-16 08:59:00 [facility] Respitory Rate 2015-09-16 01:04:00 [facility] Respitory Rate 2015-09-15 21:00:00 [facility] Weight 2015-09-15 09:08:00 [facility] [place] BMI Calculated 2015-09-15 09:08:00 [facility] [place] Height 2015-09-15 09:08:00 162.56 cm [facility] Weight 2015-09-14 19:57:00 [facility] BMI Calculated 2015-09-14 19:57:00 [facility] [place] Height 2015-09-14 19:57:00 162.56 cm [facility] Systolic (mm Hg) 2014-03-20 20:35:00 Jayme rial [place] Diastolic (mm Hg) 2014-03-20 20:35:00 [facility] [place] Temperature Oral (F) 2014-03-20 20:35:00 98.2 F [facility] Respitory Rate 2014-03-20 20:35:00 [facility] Heart Rate 2014-03-20 20:35:00 [facility] [place] Temperature Oral (F) 2014-03-20 16:17:00 98.2 F [facility] Heart Rate 2014-03-20 16:17:00 [facility] [place] Systolic (mm Hg) 2014-03-20 16:17:00 Jayme [facility] Diastolic (mm Hg) 2014-03-20 16:17:00 [facility] Respitory Rate 2014-03-20 16:17:00 [facility] [place] Diastolic (mm Hg) 2014-03-20 12:34:00 [facility] [place] Temperature Oral (F) 2014-03-20 12:34:00 98.2 F [facility] Respitory Rate 2014-03-20 12:34:00 [facility] [place] Heart Rate 2014-03-20 12:34:00 [facility] Systolic (mm Hg) 2014-03-20 12:34:00 Jayme rial [place] Height 2014-03-16 20:58:00 162.56 cm [facility] BMI Calculated 2014-03-16 20:58:00 [facility] [place] Weight 2014-03-16 20:58:00 [facility] Respitory Rate 2012-09-27 20:55:00 [facility] Diastolic (mm Hg) 2012-09-27 20:55:00 [facility] Systolic (mm Hg) 2012-09-27 20:55:00 [facility]me [facility] Temperature Oral (F) 2012-09-27 20:55:00 98.1 F [facility] Heart Rate 2012-09-27 20:55:00 [facility] Diastolic (mm Hg) 2012-09-27 17:05:00 [facility] [place] Heart Rate 2012-09-27 17:05:00 [facility] Respitory Rate 2012-09-27 17:05:00 [facility] [place] Systolic (mm Hg) 2012-09-27 17:05:00 Jayme rial [place] Temperature Oral (F) 2012-09-27 17:05:00 98.3 F [facility] Temperature Oral (F) 2012-09-27 12:46:00 99.1 F [facility] Systolic (mm Hg) 2012-09-27 12:46:00 Jayme rial [place] Heart Rate 2012-09-27 12:46:00 [facility] Respitory Rate 2012-09-27 12:46:00 [facility] [place] Diastolic (mm Hg) 2012-09-27 12:46:00 [facility] [place] Weight 2012-09-26 00:18:00 [facility] [place] Height 2012-09-26 00:18:00 162.56 cm [facility] [place] Height 2012-09-22 18:59:00 162.56 cm [facility] Weight 2012-09-22 18:59:00 [facility] Procedures Procedure Date / Time Performed Performing Clinician Aly mcgill Total thyroidectomy 2013-04-18 06:00:00 [facility] Biopsy of lymph node<sup>1</sup> [facility] CABG x 3 - Coronary artery bypass grafts x 3 [facility] n Tubal ligation [facility] Plan of Care Planned Activity Planned Date Details Comments Source Instructions Back Pain [facility] Encounters Start Date/Time End Date/Time En[facility] ID Source 2019-12-12 15:45:00 2019-12-12 16:11:00 Departed Emergency Room [facility] [id number] [facility] 2019-06-04 10:33:38 2019-06-05 14:00:00 Outpatient Hoang Ruano [facility] [id number] 2019-06-04 14:05:00 2019-06-04 14:05:00 Outpatient E [facility] MED [address] [place] [address] 2018-08-02 16:44:00 2018-08-02 17:12:00 Departed Emergency Room [facility] [id number] [facility] 2018-06-25 08:14:00 2018-06-25 12:58:00 Outpatient Leslie Ring MHSE MHSE [id number] 2018-06-25 08:14:00 2018-06-25 12:58:00 Outpatient Leslie Ring MHSE MHSE [id number] 2018-03-12 11:50:00 2018-03-13 12:57:00 Outpatient Hoang Ruano MHSE MHSE [id number] 2017-03-06 12:21:00 2017-03-06 17:04:00 Outpatient Casey Millan MHSE [facility]SE [id number] 2016-09-19 10:01:00 2016-09-21 16:40:00 Outpatient Meredith Barbour [place] [id number] 2016-01-12 12:47:00 2016-01-12 20:32:00 Outpatient Alvino Tate [place] [id number] 2015-09-14 14:51:00 2015-09-16 15:37:00 Outpatient Capo Snell [place] [id number] 2014-08-28 19:00:00 2014-08-28 23:59:00 Outpatient Physici an, Non Associated IE IE [id number] 2014-03-16 14:17:00 2014-03-20 17:55:00 Outpatient Bandar Cantu [place] IE [id number] Results Test Description Test Time Test Comments Results Result Comments Source GLUBED 2019-06-29 08:30:00 Test Item GLUBED (test code = GLUBED) 267 MG/DL 70-110 H Performed by certified salt machine operator at [facility] CBC W/AUTO [id number] 05:02:00* Test Item Value Reference Range Interpretation Comments WHITE BLOOD CELL (test code = WBC) 10.61 x10 3/uL 4.5-11.0 N RED BLOOD CELL (test code = RBC) 4.02 x10 6/uL 3.54-5.02 N HEMOGLOBIN (test code = HGB) 8.8 g/dL 11.0-15.0 L HEMATOCRIT (test code = HCT) 30.3 % 33.0-45.0 L MEAN CELL VOLUME (test code = MCV) 75.4 fL 81.0-99.0 L MEAN CELL HGB (test code = MCH) 21.9 pg 27.0-33.0 L MEAN CELL HGB CONCETRATION (test code = MCHC) 29.0 g/dL 33.0-37. 0 L RED CELL DISTRIBUTION WIDTH CV (test code = RDW) 25.3 % 11.5- 14.5 H RED CELL DISTRIBUTION WIDTH SD (test code = RDW-SD) 67.7 fL 37 .0-54.0 H PLATELET COUNT (test code = PLT) 564 x10 3/uL 150-400 H MEAN PLATELET VOLUME (test code = MPV) 9.9 fL 7.0-9.0 H NEUTROPHIL % (test code = NT%) 67.6 % 56.0-77.0 N IMMATURE GRANULOCYTE % (test code = IG%) 0.7 % 0.0-2.0 N LYMPHOCYTE % (test code = LY%) 22.0 % 14.0-32.0 N MONOCYTE % (test code = MO%) 6.3 % 4.8-9.0 N EOSINOPHIL % (test code = EO%) 2.6 % 0.3-3.7 N BASOPHIL % (test code = BA%) 0.8 % 0.0-2.0 N NUCLEATED RBC % (test code = NRBC%) 0.0 % 0-0 N NEUTROPHIL # (test code = NT#) 7.18 x10 3/uL 2.0-7.6 N IMMATURE GRANULOCYTE # (test code = IG#) 0.07 x10 3/uL 0.00-0.03 H LYMPHOCYTE # (test code = LY#) 2.33 x10 3/uL 1.0-3.8 N MONOCYTE # (test code = MO#) 0.67 x10 3/uL 0.1-0.8 N EOSINOPHIL # (test code = EO#) 0.28 x10 3/uL 0.0-0.2 H BASOPHIL # (test code = BA#) 0.08 x10 3/uL 0.0-0.2 N NUCLEATED RBC # (test code = NRBC#) 0.00 x10 3/uL 0.0-0.1 N MANUAL DIFF REQUIRED (test code = MDIFF) NO RBC [id number] 05:02:00* Test Item Value Reference Range Interpretation Comments POLYCHROMASIA (test code = POLC) SLIGHT HYPOCHROMIA (test code = HYPO) 1+ POIKILOCYTOSIS (test code = POIK) 1+ ANISOCYTOSIS (test code = ANISO) 1+ MICROCYTOSIS (test code = MICR) 1+ MACROCYTOSIS (test code = MACR) FEW TARGET CELLS (test code = TGT) FEW SCHISTOCYTES (test code = TAMMY) FEW BASIC METABOLIC [id number] 04:50:00* Test Item Value Reference Range Interpretation Comments SODIUM (test code = NA) 134 mEq/L 134-147 N POTASSIUM (test code = K) 4.1 mEq/L 3.4-5.0 N CHLORIDE (test code = CL) 104 mEq/L 100-108 N CARBON DIOXIDE (test code = CO2) 24 mEq/L 21-33 N ANION GAP (test code = GAP) 10 0-20 N GLUCOSE (test code = GLU) 302 mg/dL 70-110 H BLOOD UREA NITROGEN (test code = BUN) 17 mg/dL 7-18 N GLOMERULAR FILTRATION RATE (test code = GFR) 61.1 95-105 L Units of measure = ml/min/1.73 m2 CREATININE (test code = CREAT) 1.0 mg/dL 0.6-1.3 N CALCIUM (test code = CA) 7.4 mg/dL 8.0-10.5 L CBC W/AUTO [id number] 04:34:00* Test Item Value Reference Range Interpretation Comments WHITE BLOOD CELL (test code = WBC) 10.61 x10 3/uL 4.5-11.0 N RED BLOOD CELL (test code = RBC) 4.02 x10 6/uL 3.54-5.02 N HEMOGLOBIN (test code = HGB) 8.8 g/dL 11.0-15.0 L HEMATOCRIT (test code = HCT) 30.3 % 33.0-45.0 L MEAN CELL VOLUME (test code = MCV) 75.4 fL 81.0-99.0 L MEAN CELL HGB (test code = MCH) 21.9 pg 27.0-33.0 L MEAN CELL HGB CONCETRATION (test code = MCHC) 29.0 g/dL 33.0-37. 0 L RED CELL DISTRIBUTION WIDTH CV (test code = RDW) 25.3 % 11.5- 14.5 H RED CELL DISTRIBUTION WIDTH SD (test code = RDW-SD) 67.7 fL 37 .0-54.0 H PLATELET COUNT (test code = PLT) 564 x10 3/uL 150-400 H MEAN PLATELET VOLUME (test code = MPV) 9.9 fL 7.0-9.0 H NEUTROPHIL % (test code = NT%) 67.6 % 56.0-77.0 N IMMATURE GRANULOCYTE % (test code = IG%) 0.7 % 0.0-2.0 N LYMPHOCYTE % (test code = LY%) 22.0 % 14.0-32.0 N MONOCYTE % (test code = MO%) 6.3 % 4.8-9.0 N EOSINOPHIL % (test code = EO%) 2.6 % 0.3-3.7 N BASOPHIL % (test code = BA%) 0.8 % 0.0-2.0 N NUCLEATED RBC % (test code = NRBC%) 0.0 % 0-0 N NEUTROPHIL # (test code = NT#) 7.18 x10 3/uL 2.0-7.6 N IMMATURE GRANULOCYTE # (test code = IG#) 0.07 x10 3/uL 0.00-0.03 H LYMPHOCYTE # (test code = LY#) 2.33 x10 3/uL 1.0-3.8 N MONOCYTE # (test code = MO#) 0.67 x10 3/uL 0.1-0.8 N EOSINOPHIL # (test code = EO#) 0.28 x10 3/uL 0.0-0.2 H BASOPHIL # (test code = BA#) 0.08 x10 3/uL 0.0-0.2 N NUCLEATED RBC # (test code = NRBC#) 0.00 x10 3/uL 0.0-0.1 N MANUAL DIFF REQUIRED (test code = MDIFF) NO RBC [id number] 04:34:00* Test Item Value Reference Range Interpretation Comments ANISOCYTOSIS (test code = ANISO) CBC W/AUTO [id number] 04:34:00* Test Item Value Reference Range Interpretation Comments WHITE BLOOD CELL (test code = WBC) 10.61 x10 3/uL 4.5-11.0 N RED BLOOD CELL (test code = RBC) 4.02 x10 6/uL 3.54-5.02 N HEMOGLOBIN (test code = HGB) 8.8 g/dL 11.0-15.0 L HEMATOCRIT (test code = HCT) 30.3 % 33.0-45.0 L MEAN CELL VOLUME (test code = MCV) 75.4 fL 81.0-99.0 L MEAN CELL HGB (test code = MCH) 21.9 pg 27.0-33.0 L MEAN CELL HGB CONCETRATION (test code = MCHC) 29.0 g/dL 33.0-37. 0 L RED CELL DISTRIBUTION WIDTH CV (test code = RDW) 25.3 % 11.5- 14.5 H RED CELL DISTRIBUTION WIDTH SD (test code = RDW-SD) 67.7 fL 37 .0-54.0 H PLATELET COUNT (test code = PLT) 564 x10 3/uL 150-400 H MEAN PLATELET VOLUME (test code = MPV) 9.9 fL 7.0-9.0 H NEUTROPHIL % (test code = NT%) 67.6 % 56.0-77.0 N IMMATURE GRANULOCYTE % (test code = IG%) 0.7 % 0.0-2.0 N LYMPHOCYTE % (test code = LY%) 22.0 % 14.0-32.0 N MONOCYTE % (test code = MO%) 6.3 % 4.8-9.0 N EOSINOPHIL % (test code = EO%) 2.6 % 0.3-3.7 N BASOPHIL % (test code = BA%) 0.8 % 0.0-2.0 N NUCLEATED RBC % (test code = NRBC%) 0.0 % 0-0 N NEUTROPHIL # (test code = NT#) 7.18 x10 3/uL 2.0-7.6 N IMMATURE GRANULOCYTE # (test code = IG#) 0.07 x10 3/uL 0.00-0.03 H LYMPHOCYTE # (test code = LY#) 2.33 x10 3/uL 1.0-3.8 N MONOCYTE # (test code = MO#) 0.67 x10 3/uL 0.1-0.8 N EOSINOPHIL # (test code = EO#) 0.28 x10 3/uL 0.0-0.2 H BASOPHIL # (test code = BA#) 0.08 x10 3/uL 0.0-0.2 N NUCLEATED RBC # (test code = NRBC#) 0.00 x10 3/uL 0.0-0.1 N MANUAL DIFF REQUIRED (test code = MDIFF) NO RBC [id number] 04:34:00* Test Item Value Reference Range Interpretation Comments ANISOCYTOSIS (test code = ANISO) [id number] 20:38:00* Test Item Value Reference Range Interpretation Comments GLUBED (test code = GLUBED) 276 MG/DL 70-110 H Performed by certified salt machine operator at [facility] [id number] 20:24:00* Test Item Value Reference Range Interpretation Comments GLUBED (test code = GLUBED) 233 MG/DL 70-110 H Performed by certified salt machine operator at [facility] - US PELVIS [id number] 19:56:00 Name: CECILIO TOURE [facility] : 1975 Age/S: 43 / F [address] [place] [address] Blvd Unit #: [id number] Loc: [place] [address] Phys: Cal Barraza MD Acct: [id number] Dis Date: Status: ADM IN PHONE #: [phone] Exam Date: 06/28/20191941 FAX #: [phone] Reason: MENORRHAGIA EXAMS: CPT CODE: [id number] US PELVIS COMPLETE [id number] PROCEDURE: PELVIC ULTRASOUND INDICATION: Menorrhagia. Anemia. Status post ablation. History of fibroids. COMPARISON: 10/16/2018 pelvic ultrasound. TRANSABDOMINAL SCAN: The uterus measures 11.3 x 4 x 6.7 cm with endometrial stripe thickness of 0.4 cm. Right ovary measures 2.6 x 2.1 x 3 cm containing a 1.6 x 1.7 x 1.8 cm cystic lesion without internal vascularity. Mild internal echoes from complexity versus artifact. The left ovary measures 2.7 x 1.3 x 1.1 cm and appears normal. Arterial waveforms are documented to each ovary. No adnexal mass is identified. No free pelvic fluid is seen. TRANSVAGINAL SCAN: Transvaginal exam was performed for better visualization of the pelvic structures. Subcentimeter nabothian cysts are seen. The uterus measures 8.1 x 5.2 x 4 cm with obscured endometrial stripe. Small heterogeneous round hypoechoic uterine mass measures 1.3 x 1 x 1.6 cm and appears to correlate with the mass lesion seen on prior ultrasound exam. Neither ovary visualized transvaginally. IMPRESSION: 1. 1.6 cm lower uterine mass likely correla ting with the fibroid suggested on the prior ultrasound exam. 2. Borderline-enlarged uterus as seen on prior study. 3. 1.8 cm right ov janet cyst. SL: YANIRA Vivek schwab Signed by Gilmer Leone on 06/28/2019 a t 1953 Reported and signed by: Dio Leone M.D. CC: Cal Barraza MD; Rashida Everett DO Techno logist: Bipin Bowden Trnscb Date/Time: 06/28/2019 (1955) [email or web address] Orig Print D/T: S: 0 (1958) Probe: PAGE 1 Signed R eport - DUP AB/PEL/SC/[id number] 19:56:00 Name: CECILIO TOURE [facility] : 1975 Age/S: 43 / F [address] [place] [address] Unit #: [id number] Loc: [place] [address] Phys: Rishi Barraza MD Acct: [id number] Di s Date: Status: ADM IN PHONE #: Exam Date: 06/28/20191941 FAX #: Reason: MENORRHAGIA EXAMS: CPT CODE: [id number] DUP AB/PEL/SC /LTD [id number] PROCEDURE: PELVIC ULTRASO UND INDICATION: Menorrhagia. Anemia. Status post ablation. Hist ory of fibroids. COMPARISON: 10/16/2018 pelvic ultrasound. TRANSABDOMINAL SCAN: The uterus measures 11.3 x 4 x 6.7 cm with endometrial stripe thickness of 0.4 cm. Right ovary measures 2.6 x 2.1 x 3 cm containing a 1.6 x 1.7 x 1.8 cm cystic lesion without internal vasc ularity. Mild internal echoes from complexity versus artifact. The left ovary measures 2.7 x 1.3 x 1.1 cm and appears normal. Arterial waveforms are documented to each ovary. No adnexal mass is identified. No free pel neno fluid is seen. TRANSVAGINAL SCAN: Transvaginal exam was perfor med for better visualization of the pelvic structures. Subcentimeter nabo thian cysts are seen. The uterus measures 8.1 x 5.2 x 4 cm with obscured endometrial stripe. Small heterogeneous round hypoechoic uterine mass measures 1.3 x 1 x 1.6 cm and appears to correlate with the mass lesion seen on prior ultrasound exam. Neither ovary visualized transvaginally. IMPRESSION: 1. 1.6 cm lower uterine mass likely correla ting with the fibroid suggested on the prior ultrasound exam. 2. Borderline-enlarged uterus as seen on prior study. 3. 1.8 cm right ov janet cyst. SL: SG-H Vivek zaheer Signed by Gilmer Leone on 06/28/2019 a t 1955 Reported and signed by: Dio Leone M.D. CC: Cal Barraza MD; Rashida Everett DO Techno logist: Bipin Bowden Trnscb Date/Time: 06/28/2019 (1955) [email or web address] Orig Print D/T: S: 0 (1958) Probe: PAGE 1 Signed R eport - US TRANSVAGINAL NON [id number] 19:56:00 Name: CECILIO TOURE [facility] : 1975 Age/S: 43 / F [address] [place] [address] Unit #: [id number] Loc: [place] [address] Phys: Marycarmen Mcintyre MD Acct: [id number] Di s Date: Status: ADM IN PHONE #: Exam Date: 06/28/20191941 FAX #: [phone] Reason: menorrhagia, s/p ablation, h/o fibroids EXAMS: CPT CODE: [id number] [place] [id number] PROCEDURE: PELVIC ULTRASO UND INDICATION: Menorrhagia. Anemia. Status post ablation. Hist ory of fibroids. COMPARISON: 10/16/2018 pelvic ultrasound. TRANSABDOMINAL SCAN: The uterus measures 11.3 x 4 x 6.7 cm with endometrial stripe thickness of 0.4 cm. Right ovary measures 2.6 x 2.1 x 3 cm containing a 1.6 x 1.7 x 1.8 cm cystic lesion without internal vasc ularity. Mild internal echoes from complexity versus artifact. The left ovary measures 2.7 x 1.3 x 1.1 cm and appears normal. Arterial waveforms are documented to each ovary. No adnexal mass is identified. No free pel neno fluid is seen. TRANSVAGINAL SCAN: Transvaginal exam was perfor med for better visualization of the pelvic structures. Subcentimeter nabo thian cysts are seen. The uterus measures 8.1 x 5.2 x 4 cm with obscured endometrial stripe. Small heterogeneous round hypoechoic uterine mass measures 1.3 x 1 x 1.6 cm and appears to correlate with the mass lesion seen on prior ultrasound exam. Neither ovary visualized transvaginally. IMPRESSION: 1. 1.6 cm lower uterine mass likely correla ting with the fibroid suggested on the prior ultrasound exam. 2. Borderline-enlarged uterus as seen on prior study. 3. 1.8 cm right ov janet cyst. SL: SG-H Vivek schwab Signed by Gilmer Leone on 06/28/2019 a t 1955 Reported and signed by: Dio Leone M.D. CC: Cal Barraza MD; Rashida Everett DO; Edi Mcintyre M.D. Techno logist: Bipin Bowden Trnscb Date/Time: 06/28/2019 (1955) ShannonSG9 Orig Print D/T: S: 0 (1958) Probe: [id number] PAGE 1 Signed R eport [id number] 18:26:00* Test Item Value Reference Range Interpretation Comments GLUBED (test code = GLUBED) 260 MG/DL 70-110 H Performed by certified salt machine operator at [facility] BASIC METABOLIC [id number] 12:53:00* Test Item Value Reference Range Interpretation Comments SODIUM (test code = NA) 134 mEq/L 134-147 N POTASSIUM (test code = K) 4.3 mEq/L 3.4-5.0 N CHLORIDE (test code = CL) 103 mEq/L 100-108 N CARBON DIOXIDE (test code = CO2) 26 mEq/L 21-33 N ANION GAP (test code = GAP) 9 0-20 N GLUCOSE (test code = GLU) 256 mg/dL 70-110 H BLOOD UREA NITROGEN (test code = BUN) 14 mg/dL 7-18 N GLOMERULAR FILTRATION RATE (test code = GFR) 61.1 95-105 L Units of measure = ml/min/1.73 m2 CREATININE (test code = CREAT) 1.0 mg/dL 0.6-1.3 N CALCIUM (test code = CA) 7.9 mg/dL 8.0-10.5 L [id number] 12:53:00* Test Item Value Reference Range Interpretation Comments MAGNESIUM (test code = MAG) 1.70 mg/dL 1.8-2.4 L BASIC METABOLIC [id number] 12:48:00* Test Item Value Reference Range Interpretation Comments SODIUM (test code = NA) 134 mEq/L 134-147 N POTASSIUM (test code = K) 4.3 mEq/L 3.4-5.0 N CHLORIDE (test code = CL) 103 mEq/L 100-108 N CARBON DIOXIDE (test code = CO2) 26 mEq/L 21-33 N ANION GAP (test code = GAP) 9 0-20 N GLUCOSE (test code = GLU) 256 mg/dL 70-110 H BLOOD UREA NITROGEN (test code = BUN) 14 mg/dL 7-18 N GLOMERULAR FILTRATION RATE (test code = GFR) 95-105 CREATININE (test code = CREAT) mg/dL 0.6-1.3 CALCIUM (test code = CA) 7.9 mg/dL 8.0-10.5 L [id number] 12:48:00* Test Item Value Reference Range Interpretation Comments MAGNESIUM (test code = MAG) 1.70 mg/dL 1.8-2.4 L CBC W/AUTO [id number] 12:41:00* Test Item Value Reference Range Interpretation Comments WHITE BLOOD CELL (test code = WBC) 9.14 x10 3/uL 4.5-11.0 N RED BLOOD CELL (test code = RBC) 4.28 x10 6/uL 3.54-5.02 N HEMOGLOBIN (test code = HGB) 9.3 g/dL 11.0-15.0 L HEMATOCRIT (test code = HCT) 31.8 % 33.0-45.0 L MEAN CELL VOLUME (test code = MCV) 74.3 fL 81.0-99.0 L MEAN CELL HGB (test code = MCH) 21.7 pg 27.0-33.0 L MEAN CELL HGB CONCETRATION (test code = MCHC) 29.2 g/dL 33.0-37. 0 L RED CELL DISTRIBUTION WIDTH CV (test code = RDW) 25.5 % 11.5- 14.5 H RED CELL DISTRIBUTION WIDTH SD (test code = RDW-SD) 66.9 fL 37 .0-54.0 H PLATELET COUNT (test code = PLT) 577 x10 3/uL 150-400 H MEAN PLATELET VOLUME (test code = MPV) 9.5 fL 7.0-9.0 H NEUTROPHIL % (test code = NT%) 68.3 % 56.0-77.0 N IMMATURE GRANULOCYTE % (test code = IG%) 0.4 % 0.0-2.0 N LYMPHOCYTE % (test code = LY%) 21.8 % 14.0-32.0 N MONOCYTE % (test code = MO%) 6.3 % 4.8-9.0 N EOSINOPHIL % (test code = EO%) 2.1 % 0.3-3.7 N BASOPHIL % (test code = BA%) 1.1 % 0.0-2.0 N NUCLEATED RBC % (test code = NRBC%) 0.0 % 0-0 N NEUTROPHIL # (test code = NT#) 6.24 x10 3/uL 2.0-7.6 N IMMATURE GRANULOCYTE # (test code = IG#) 0.04 x10 3/uL 0.00-0.03 H LYMPHOCYTE # (test code = LY#) 1.99 x10 3/uL 1.0-3.8 N MONOCYTE # (test code = MO#) 0.58 x10 3/uL 0.1-0.8 N EOSINOPHIL # (test code = EO#) 0.19 x10 3/uL 0.0-0.2 N BASOPHIL # (test code = BA#) 0.10 x10 3/uL 0.0-0.2 N NUCLEATED RBC # (test code = NRBC#) 0.00 x10 3/uL 0.0-0.1 N MANUAL DIFF REQUIRED (test code = MDIFF) NO [id number] 12:08:00* Test Item Value Reference Range Interpretation Comments GLUBED (test code = GLUBED) 230 MG/DL 70-110 H Performed by certified salt machine operator at [facility] [id number] 08:30:00* Test Item Value Reference Range Interpretation Comments GLUBED (test code = GLUBED) 243 MG/DL 70-110 H Performed by certified salt machine operator at [facility] [id number] 00:46:00* Test Item Value Reference Range Interpretation Comments TROPONIN-I (test code = TROPI) < 0.015 ng/mL 0.000-0.045 N Negative: <= 0.045 Positive: >= 0.046 Correlation with serial results, other cardiac markers andclinical findings is necessary to determine the clinicalsignificance of this result. Results using different methodologies should not be comparedto one another as quantitative results may vary by method. COMMENTS: 3 troponins total (including troponin done in ED)HGB [id number] 00:32:00* Test Item Value Reference Range Interpretation Comments HEMOGLOBIN (test code = HGB) 6.9 g/dL 11.0-15.0 L HEMATOCRIT (test code = HCT) 24.9 % 33.0-45.0 L [id number] 18:33:00* Test Item Value Reference Range Interpretation Comments TROPONIN-I (test code = TROPI) < 0.015 ng/mL 0.000-0.045 N Negative: <= 0.045 Positive: >= 0.046 Correlation with serial results, other cardiac markers andclinical findings is necessary to determine the clinicalsignificance of this result. Results using different methodologies should not be comparedto one another as quantitative results may vary by method. COMMENTS: 3 troponins total (including troponin done in ED)HGB [id number] 18:18:00* Test Item Value Reference Range Interpretation Comments HEMOGLOBIN (test code = HGB) 7.5 g/dL 11.0-15.0 L HEMATOCRIT (test code = HCT) 27.0 % 33.0-45.0 L - CTA CHEST FOR [id number] 13:45:00 Name: CECILIO TOURE [facility] : 1975 Age/S: 43 / F [address] [place] [address] Unit #: [id number] Loc: [facility] [place] [address] Phys: Juanjose Walden DO Acct: [id number] Dis Date: Status: ADM IN PHONE #: [phone] Exam Date: 06/27/2019 131 FAX #: [phone] Reason: SOB EXAMS: CPT CODE: [id number] [place] [id number] EXAM: CTA CHEST WITH CONTRAST DATE: 06/27/2019 11:34 AM : 1975; Age: 43 years y/o Female INDICATION: Chest pain SOB COMPARISON: January 15, 2018 TECHNIQUE: Volumetric CT of the chest is acquired during pulmonary arterial phase following intravenous administration of contrast. Coronal and sagittal reconstructions were created. Three-dimensional or MIP reconstructions of the pulmonary arterial system were created at an independent workstation. IV Contrast: 100 mL Isovue DLP: 481 mGy-cm CT imaging performed at this location utilizes radiation dose optimization techniques which include one or more of the following: -A utomated exposure control -Adjustment of the mA and/or kV according to pat ient size -Use of iterative reconstruction technique FINDING S: Lymph Nodes: There is no mediastinal or hilar lymphadenopathy. No axillary lymphadenopathy. Heart, pericardium and aorta: Heart i s borderline in size. Prior CABG changes. There are coronary artery calci fications. Atheromatous changes are present in the aorta.. Pulmonary emboli: None. No right heart strain. LUNGS: Stable 6 mm noncalcified nodule within the left lower lobe on image 82 of series 2. N o consolidation. No pleural effusion. Upper abdomen: No acute fi ndings in visualized upper abdomen. Soft tissues: Right chest port with tip within the lower SVC. Sternotomy changes. Bones: No acute abnormality. Age-related degenerative findings. IMPRESS ION: 1. No pulmonary embolism. PAGE 1 Signed Report (CONTINUED) Name: CHARISMA TOURE [facility] : 1975 Age/S: 43 / F [address] [place] [address] Unit #: [id number] Loc: [place] [address] Phys: Juanjose Walden DO Acct: [id number] Dis Date: Status: ADM IN PHONE #: [phone] Exa m Date: 06/27/2019 1313 FAX #: [phone] Reason: SO B EXAMS: CPT CODE: [id number] [place] [address] <Continued> 2. Borderline cardiomegaly with prior CABG changes and coronary artery disease. 3. Stable 6 mm left lower lobe noncalcified nodule. SL: [id number] at 1345 Reported and signed by: Mirella To D.O. CC: Juanjose Walden DO; Rashida Everett DO Technologist:RT Iveth(R)(CT); Adelaida CTDI: DLP: Trnscb Date/Time: 06/27/2019 (6237) ShannonMP37 Orig Print D/T: S: 06/27/2019 (1018) PAGE 2 Signed Report B-TYPE NATRIURETIC [id number] 12:34:00* Test Item Value Reference Range Interpretation Comments B-TYPE NATRIURETIC PEPTIDE (test code = BNP) 58.7 PG/ML 0-100 N BASIC METABOLIC [id number] 12:12:00* Test Item Value Reference Range Interpretation Comments SODIUM (test code = NA) 133 mEq/L 134-147 L POTASSIUM (test code = K) 4.0 mEq/L 3.4-5.0 N CHLORIDE (test code = CL) 99 mEq/L 100-108 L CARBON DIOXIDE (test code = CO2) 24 mEq/L 21-33 N ANION GAP (test code = GAP) 14 0-20 N GLUCOSE (test code = GLU) 251 mg/dL 70-110 H BLOOD UREA NITROGEN (test code = BUN) 12 mg/dL 7-18 N GLOMERULAR FILTRATION RATE (test code = GFR) 54.7 95-105 L Units of measure = ml/min/1.73 m2 CREATININE (test code = CREAT) 1.1 mg/dL 0.6-1.3 N CALCIUM (test code = CA) 8.1 mg/dL 8.0-10.5 N HEPATIC FUNCTION [id number] 12:12:00* Test Item Value Reference Range Interpretation Comments TOTAL PROTEIN (test code = PROT) 8.0 g/dL 6.4-8.2 N ALBUMIN (test code = ALB) 3.70 g/dL 3.4-5.0 N BILIRUBIN TOTAL (test code = BILT) 0.2 MG/DL <1.5 N BILIRUBIN DIRECT (test code = BILD) < 0.10 MG/DL 0.0-0.30 N BILIRUBIN INDIRECT (test code = BILIND) 0.10 MG/DL SGOT/AST (test code = AST) 28 IUnit/L 15-37 N SGPT/ALT (test code = ALT) 30 IUnit/L 15-65 N ALKALINE PHOSPHATASE TOTAL (test code = ALKP) 130 IUnit/L 20-125 H [id number] 12:12:00* Test Item Value Reference Range Interpretation Comments MAGNESIUM (test code = MAG) 1.70 mg/dL 1.8-2.4 L PROTHROMBIN [id number] 12:11:00* Test Item Value Reference Range Interpretation Comments PROTHROMBIN TIME PATIENT (test code = PTP) 12.2 SECONDS 9.3-12.9 N INTERNATIONAL NORMAL RATIO (test code = INR) 1.1 0.8-1.2 N TARGET INR BY INDICATION Indication INR1. Prophylaxis of venous thrombosis 2.0 - 3.0 (orthopedic surgery), Prophylaxis of venous thrombosis (other than high-risk surgery), Treatment of Deep Vein Thrombosis/Pulmonary Embolism, Prevention of systemic embolism - Tissue heart valves, Acute Myocardial Infarction (to prevent systemic embolism), Valvular heart disease, Atrial Fibrillation, Bileaflet mechanical valve in aortic position.2. Mechanical prosthetic valves (high risk), 2.5 - 3.5 Presence of Lupus Anticoagulant or Antiphospholipid Antibodies, Prevention of systemic embolism - Acute Myocardial Infarction (to prevent recurrent infarct). THROMBOPLASTIN TIME [id number] 12:11:00* Test Item Value Reference Range Interpretation Comments THROMBOPLASTIN TIME PARTIAL (test code = PTT) 29.5 Seconds 25.0-39. 5 N Therapeutic Range: 50.4 - 88.3 Seconds Effective 09/17/2018 BASIC METABOLIC [id number] 12:07:00* Test Item Value Reference Range Interpretation Comments SODIUM (test code = NA) 133 mEq/L 134-147 L POTASSIUM (test code = K) 4.0 mEq/L 3.4-5.0 N CHLORIDE (test code = CL) 99 mEq/L 100-108 L CARBON DIOXIDE (test code = CO2) 24 mEq/L 21-33 N ANION GAP (test code = GAP) 14 0-20 N GLUCOSE (test code = GLU) 251 mg/dL 70-110 H BLOOD UREA NITROGEN (test code = BUN) 12 mg/dL 7-18 N GLOMERULAR FILTRATION RATE (test code = GFR) 95-105 CREATININE (test code = CREAT) mg/dL 0.6-1.3 CALCIUM (test code = CA) 8.1 mg/dL 8.0-10.5 N HEPATIC FUNCTION [id number] 12:07:00* Test Item Value Reference Range Interpretation Comments TOTAL PROTEIN (test code = PROT) g/dL 6.4-8.2 ALBUMIN (test code = ALB) g/dL 3.4-5.0 BILIRUBIN TOTAL (test code = BILT) MG/DL <1.5 BILIRUBIN DIRECT (test code = BILD) MG/DL 0.0-0.30 SGOT/AST (test code = AST) IUnit/L 15-37 SGPT/ALT (test code = ALT) IUnit/L 15-65 ALKALINE PHOSPHATASE TOTAL (test code = ALKP) IUnit/L 20-125 [id number] 12:07:00* Test Item Value Reference Range Interpretation Comments MAGNESIUM (test code = MAG) mg/dL 1.8-2.4 CBC W/AUTO [id number] 12:03:00* Test Item Value Reference Range Interpretation Comments WHITE BLOOD CELL (test code = WBC) 9.63 x10 3/uL 4.5-11.0 N RED BLOOD CELL (test code = RBC) 4.09 x10 6/uL 3.54-5.02 N HEMOGLOBIN (test code = HGB) 8.2 g/dL 11.0-15.0 L HEMATOCRIT (test code = HCT) 29.4 % 33.0-45.0 L MEAN CELL VOLUME (test code = MCV) 71.9 fL 81.0-99.0 L MEAN CELL HGB (test code = MCH) 20.0 pg 27.0-33.0 L MEAN CELL HGB CONCETRATION (test code = MCHC) 27.9 g/dL 33.0-37. 0 L RED CELL DISTRIBUTION WIDTH CV (test code = RDW) 24.7 % 11.5- 14.5 H RED CELL DISTRIBUTION WIDTH SD (test code = RDW-SD) 61.8 fL 37 .0-54.0 H PLATELET COUNT (test code = PLT) 715 x10 3/uL 150-400 H MEAN PLATELET VOLUME (test code = MPV) 10.0 fL 7.0-9.0 H NEUTROPHIL % (test code = NT%) 71.0 % 56.0-77.0 N IMMATURE GRANULOCYTE % (test code = IG%) 0.4 % 0.0-2.0 N LYMPHOCYTE % (test code = LY%) 19.8 % 14.0-32.0 N MONOCYTE % (test code = MO%) 6.1 % 4.8-9.0 N EOSINOPHIL % (test code = EO%) 1.8 % 0.3-3.7 N BASOPHIL % (test code = BA%) 0.9 % 0.0-2.0 N NUCLEATED RBC % (test code = NRBC%) 0.0 % 0-0 N NEUTROPHIL # (test code = NT#) 6.83 x10 3/uL 2.0-7.6 N IMMATURE GRANULOCYTE # (test code = IG#) 0.04 x10 3/uL 0.00-0.03 H LYMPHOCYTE # (test code = LY#) 1.91 x10 3/uL 1.0-3.8 N MONOCYTE # (test code = MO#) 0.59 x10 3/uL 0.1-0.8 N EOSINOPHIL # (test code = EO#) 0.17 x10 3/uL 0.0-0.2 N BASOPHIL # (test code = BA#) 0.09 x10 3/uL 0.0-0.2 N NUCLEATED RBC # (test code = NRBC#) 0.00 x10 3/uL 0.0-0.1 N MANUAL DIFF REQUIRED (test code = MDIFF) NO TROPONIN-I [id number] 11:56:00* Test Item Value Reference Range Interpretation Comments TROPONIN-I RAPID (test code = TROPIRAP) 0.00 ng/mL 0.00-0.08 N Performed by certified salt machine operator at [facility] Negative: <= 0.08 Positive: >= 0.09An elevated troponin value alone is not sufficient todiagnose a myocardial infarction. Rather, the patient sclinical presentation (history, physical exam) and ECGshould be used in conjunction with troponin in thediagnostic evaluation of suspected myocardial infarction. Aserial sampling protocol is recommended to facilitate the identification of temporal changes in troponin levels characteristic of CT. - XR CHEST 1 [id number] 11:54:00 FAX: Juanjose Higgins DO [phone] [place]: St: PRE FAX: Rashida Fields DO [phone] Name: CECILIO TOURE [facility] : 1975 Age/S: 43/F [address] [place] [address] Blvd Unit #: [id number] Loc: [place] [address] Phys: Juanjose Walden DO Acct: [id number] Dis Date: Status: PRE ER PHONE #: [phone] Exam Date: 06/27/2019 1144 FAX #: [phone] Reason: SOB EXAMS: CPT CODE: [id number] XR CHEST 1 V 87527 EXAM: Single view AP chest. EXAM DATE: 06/27/2019 at 1133 hours CLINICAL HISTORY: SOB COMPARISON: June 03, 2019 at 2204 hours Median sternotomy wires, stent material overlying the left heart, surgical clips and Port-A-Cath from the right with its tip in the region of the cavoatrial junction is again identified. Cardiomediastinal silhouette is within normal limits. The lungs appear free of acute disease. Visualized osseous structures demonstrate no acute abnormalities. IMPRESSION: No acute abno rmalities identified. at 1154 Reported and signed by: Renea Esposito M.D. CC: Juanjose Walden DO; Rashida Everett DO Technologist: SHAYAN Templeton) Trnscrd Date/Time/By: 06/27 (2343) : By: Sobeida Orig Print D/T: S: 06/27/2019 (8404) PAGE 1 Signed Report CARDIAC [id number] 11:20:00[facility]0.02[facility] 2019-[facility] 11:20:008.6[facility]annANEMIA [id number] 03:56:003[facility]annANEMIA [id number] 03:56:31728Xjvobbho HermannANEMIA [id number] 03:56:05283Oqtjphdd HermannANEMIA [id number] 03:56:71517Pjhlzpka Jp ANEMIA [id number] 03:56:0031[facility]ann[facility] [id number] 03:56:00 10.3[facility]annANEMIA [id number] 03:56:49487Fudgmtgy HermannCARDIAC LNFJGRY2576-12-11 03:56:00<0.02[facility]annCHEM [id number] 03:56:73709 [facility] [id number] 20:06:00Product available 2(06/04/19 2:06 PM)[facility] [id number] 17:25:00Negative (06/04/19 11:25 AM)[facility]annCARDIAC [id number] 17:25:00<0.02[facility] Jp CHEM [id number] 17:25:58562Mjaqgkhk HermannCHEM [id number] 17:25:0010 [facility]annCHE[facility] [id number] 17:25:001.02[facility]annCHEM PANEL 2019-06-04 17:25:37368Uvtzqkco HermannCHEM [id number] 17:25:003.9[facility] HermannCHEM [id number] 17:25:72859Ipnyqbqp HermannCHEM [id number] 17:25:0028[facility] HermannCHEM [id number] 17:25:008.0[facility]annCHEM [id number] 17:25:007.7[facility]annCHEM [id number] 17:25:003.4 [facility]annCHEM [id number] 17:25:0027[facility]annCHEM PANEL 2019-06-04 17:25:0034[facility] HermannCHEM [id number] 17:25:33160Qgaratem HermannCHEM VDJQY5729-11-54 17:25:000.3[facility] HermannCHEM [id number] 17:25:0068[facility]annCHEM [id number] 17:25:009.9[facility] HermannCHEM [id number] 17:25:00* Test Item Value Reference Range Interpretation Comments B/C Ratio (test code = B/C Ratio) 10 1 6-25 [facility]annCHEM [id number] 17:25:004.3[facility]annCHEM PANEL 2019-06-04 17:25:00* Test Item Value Reference Range Interpretation Comments A/G Ratio (test code = A/G Ratio) 0.8 1 0.7-1.6 [facility] LradpfsIWBEUFYWNCYEH4593-07-20 17:25:00Negative *NA*(06/04/19 11:25 AM) [facility] AgjmmxrCUZTETLAWC2819-28-32 17:25:001.5[facility]annHEMATOLOGY 2019-06-04 17:25:007.7[facility] WupnrofBBIIEKETVA0550-45-25 17:25:004.14[facility] HeluublTNQWANMRGJ3364-04-32 17:25:007.5[facility] FbfxflxODWAMTDXJK0322-18-19 17:25:0025.8[facility] MrvrfejQSXHJMMLHJ3312-66-49 17:25:0062.4[facility] [place] KDIPKKOMBL3367-41-54 17:25:00* Test Item Value Reference Range Interpretation Comments MCH (test code = MCH) 18.0 pg 27.0-31.0 [facility] OebfopoRBWZACEWTO0556-22-75 17:25:0028.9[facility]annHEMATOLOGY 2019-06-04 17:25:0020.5[facility] YdstewnMYMBWQWKTW6504-82-68 17:25:26619Xvgbnzkh SigacajSGQBIQMAQR1667-36-51 17:25:008.7[facility] GzjhhhrDSIRLWZZTE4298-37-84 17:25:00* Test Item Value Reference Range Interpretation Comments PT (test code = PT) 13.7 s 12.0-14.7 [facility] SavzboiBJHCCLKAHG4625-06-72 17:25:00* Test Item Value Reference Range Interpretation Comments INR (test code = INR) 1.05 1 0.85-1.17 [facility] CeykgoiBSFFWAGMRV9227-18-59 17:25:00* Test Item Value Reference Range Interpretation Comments PTT (test code = PTT) 28.9 s 22.9-35.8 [facility] ApchbjpSNXIFLYEBK7074-08-92 17:25:00Normal (06/04/19 11:25 AM)[facility] AkipweeQCJPWCCHYE0404-66-48 17:25:0067.1[facility] LqopgzwRLFNCKQJTF6957-95-75 17:25:0023.1[facility] BdtesxaOWOEYOQFEI9183-25-28 17:25:005.3[facility] Jp HUEALPOCSK4409-63-27 17:25:003.0[facility] FczarjsWDEULHWTFB6452-10-51 17:25:001.5 [facility] LlafjgdXGULWCFQVI5259-80-45 17:25:005.2[facility]annHEMATOLOGY 2019-06-04 17:25:001.8[facility] IxheckhKKAONIXXXX0104-39-15 17:25:000.4[facility] QkjvtzmKMJTGYWGUX5734-10-83 17:25:000.2[facility] DryjemgJHSSMJYKTY3224-13-89 17:25:000.1[facility] JugwylwVQTBVAZRBR3306-06-73 17:25:003+ *NA*(06/04/19 11:25 AM) [facility] VuaxshtJFYFYAVEGF9197-59-56 17:25:002+ (06/04/19 11:25 AM)[facility] [id number] 23:42:00* Test Item Value Reference Range Interpretation Comments B-TYPE NATRIURETIC PEPTIDE (test code = BNP) 86.0 PG/ML 0-100 N BASIC METABOLIC [id number] 23:28:00* Test Item Value Reference Range Interpretation Comments SODIUM (test code = NA) 134 mEq/L 134-147 N POTASSIUM (test code = K) 3.8 mEq/L 3.4-5.0 N CHLORIDE (test code = CL) 100 mEq/L 100-108 N CARBON DIOXIDE (test code = CO2) 26 mEq/L 21-33 N ANION GAP (test code = GAP) 12 0-20 N GLUCOSE (test code = GLU) 235 mg/dL 70-110 H BLOOD UREA NITROGEN (test code = BUN) 10 mg/dL 7-18 N GLOMERULAR FILTRATION RATE (test code = GFR) 49.5 95-105 L Units of measure = ml/min/1.73 m2 CREATININE (test code = CREAT) 1.2 mg/dL 0.6-1.3 N CALCIUM (test code = CA) 8.3 mg/dL 8.0-10.5 N HEPATIC FUNCTION [id number] 23:28:00* Test Item Value Reference Range Interpretation Comments TOTAL PROTEIN (test code = PROT) 8.2 g/dL 6.4-8.2 N ALBUMIN (test code = ALB) 3.60 g/dL 3.4-5.0 N BILIRUBIN TOTAL (test code = BILT) 0.2 MG/DL <1.5 N BILIRUBIN DIRECT (test code = BILD) < 0.10 MG/DL 0.0-0.30 BILIRUBIN INDIRECT (test code = BILIND) 0.10 MG/DL SGOT/AST (test code = AST) 41 IUnit/L 15-37 H SGPT/ALT (test code = ALT) 28 IUnit/L 15-65 N ALKALINE PHOSPHATASE TOTAL (test code = ALKP) 141 IUnit/L 20-125 H [id number] 23:28:00* Test Item Value Reference Range Interpretation Comments LIPASE (test code = LIP) 200 IUnit/L 73-393 N [id number] 23:28:00* Test Item Value Reference Range Interpretation Comments TROPONIN-I (test code = TROPI) < 0.015 ng/mL 0.000-0.045 N Negative: <= 0.045 Positive: >= 0.046 Correlation with serial results, other cardiac markers andclinical findings is necessary to determine the clinicalsignificance of this result. Results using different methodologies should not be comparedto one another as quantitative results may vary by method. PROTHROMBIN [id number] 23:19:00* Test Item Value Reference Range Interpretation Comments PROTHROMBIN TIME PATIENT (test code = PTP) 12.5 SECONDS 9.3-12.9 N INTERNATIONAL NORMAL RATIO (test code = INR) 1.1 0.8-1.2 N TARGET INR BY INDICATION Indication INR1. Prophylaxis of venous thrombosis 2.0 - 3.0 (orthopedic surgery), Prophylaxis of venous thrombosis (other than high-risk surgery), Treatment of Deep Vein Thrombosis/Pulmonary Embolism, Prevention of systemic embolism - Tissue heart valves, Acute Myocardial Infarction (to prevent systemic embolism), Valvular heart disease, Atrial Fibrillation, Bileaflet mechanical valve in aortic position.2. Mechanical prosthetic valves (high risk), 2.5 - 3.5 Presence of Lupus Anticoagulant or Antiphospholipid Antibodies, Prevention of systemic embolism - Acute Myocardial Infarction (to prevent recurrent infarct). THROMBOPLASTIN TIME [id number] 23:19:00* Test Item Value Reference Range Interpretation Comments THROMBOPLASTIN TIME PARTIAL (test code = PTT) 31.9 Seconds 25.0-39. 5 N Therapeutic Range: 50.4 - 88.3 Seconds Effective 09/17/2018 CBC W/AUTO [id number] 23:09:00* Test Item Value Reference Range Interpretation Comments WHITE BLOOD CELL (test code = WBC) 9.40 x10 3/uL 4.5-11.0 N RED BLOOD CELL (test code = RBC) 4.07 x10 6/uL 3.54-5.02 N HEMOGLOBIN (test code = HGB) 7.4 g/dL 11.0-15.0 L HEMATOCRIT (test code = HCT) 27.5 % 33.0-45.0 L MEAN CELL VOLUME (test code = MCV) 67.6 fL 81.0-99.0 L MEAN CELL HGB (test code = MCH) 18.2 pg 27.0-33.0 L MEAN CELL HGB CONCETRATION (test code = MCHC) 26.9 g/dL 33.0-37. 0 L RED CELL DISTRIBUTION WIDTH CV (test code = RDW) 20.9 % 11.5- 14.5 H RED CELL DISTRIBUTION WIDTH SD (test code = RDW-SD) 49.2 fL 37 .0-54.0 N PLATELET COUNT (test code = PLT) 532 x10 3/uL 150-400 H MEAN PLATELET VOLUME (test code = MPV) 9.9 fL 7.0-9.0 H NEUTROPHIL % (test code = NT%) 65.4 % 56.0-77.0 N IMMATURE GRANULOCYTE % (test code = IG%) 0.4 % 0.0-2.0 N LYMPHOCYTE % (test code = LY%) 24.4 % 14.0-32.0 N MONOCYTE % (test code = MO%) 6.0 % 4.8-9.0 N EOSINOPHIL % (test code = EO%) 2.7 % 0.3-3.7 N BASOPHIL % (test code = BA%) 1.1 % 0.0-2.0 N NUCLEATED RBC % (test code = NRBC%) 0.0 % 0-0 N NEUTROPHIL # (test code = NT#) 6.16 x10 3/uL 2.0-7.6 N IMMATURE GRANULOCYTE # (test code = IG#) 0.04 x10 3/uL 0.00-0.03 H LYMPHOCYTE # (test code = LY#) 2.29 x10 3/uL 1.0-3.8 N MONOCYTE # (test code = MO#) 0.56 x10 3/uL 0.1-0.8 N EOSINOPHIL # (test code = EO#) 0.25 x10 3/uL 0.0-0.2 H BASOPHIL # (test code = BA#) 0.10 x10 3/uL 0.0-0.2 N NUCLEATED RBC # (test code = NRBC#) 0.00 x10 3/uL 0.0-0.1 N MANUAL DIFF REQUIRED (test code = MDIFF) NO - DUP VEIN [id number] 22:32:00 Name: CECILIO TOURE [facility] : 1975 Age/S: 43 / F [address] [place] [address] Unit #: [id number] Loc: [place] [address] Phys: Naldo Wilks MD Acct: [id number] Dis Date: Status: REG ER PHONE #: [phone] Exam Date: 06/03/2019 2230 FAX #: [phone] Reason: ACUTE LEFT LEG SWELLING, EVALUATE FOR DVTS EXAMS: CPT CODE: [id number] DUP VEIN JONES [id number] PROCEDURE: BILATERAL LOWER EXTREMITY VENOUS ULTRASOUND INDICATION: ACUTE LEFT LEG SWELLING, EVALUATE FOR DVT COMPARISON: None. TECHNIQUE: Sonographic evaluation of the bilateral lower extremity veins was performed using high resolution B- mode, pulse and color Doppler imaging. FINDINGS: RIGHT: The common femoral, femoral, popliteal and visualized calf veins are patent. Normal venous waveforms. The saphenofemoral junction is unremarkable. LEFT: The common femoral, femoral, popliteal and visualized calf veins are patent. Normal venous waveforms. The saphenofemoral junction is unremarkable. IMPRESSION: No deep venous thrombosis. SL: LS-H at 2232 Reported and signed by: Venkatesh De Luna M.D. CC: Rashida Everett DO; Naldo Wilks MD Technologist: Paulina Garg RDMS(A)(OB) Trnscb D ate/Time: 06/03/2019 (2231) [email or web address] Orig Print D/T: S: 06/03/2019 (3112) Probe: PAGE 1 Signed Report - XR CHEST 1 [id number] 22:14:00 FAX: Naldo Zhou MD [phone] [place]: St: REG Name: CECILIO VALADEZ [facility] : [birth year] Age/S: 43/F [address] [place] [address] Unit #: [id number] Loc: [place] [address] Phys: Naldo Wilks MD Acct: [id number] Dis Date: Status: REG ER PHONE #: [phone] Exam Date: 06/03/20192208 FAX #: [phone] Reason: Chest Pain EXAMS: CPT CODE: [id number] XR CHEST 1 V 31772 2 VIEW RADIOGRAPHS OF THE CHEST INDICATION: Chest pain and dyspnea. TECHNIQUE: 2 radio graphic views of the chest were obtained. COMPARISONS: Chest x-ray 10/24/2018 FINDINGS: There are surgical changes of s ternotomy. There is no acute osseous fracture or dislocation. There is no subdiaphragmatic free gas. The cardiomediastinal size and contour are normal. There is a stable right-sided Atssuu-w-Jbmc catheter with catheter tip in the superior vena cava at the cavoatrial nelly ction. There is no pneumothorax, pleural effusion or organized pne umonia. There is peribronchial thickening. IMPRESSION: 1. There is peribronchial thickening suggesting bronchitis or interstitial congestion. There is no organized pneumonia. There is no evidence of congestive heart failure. Electronical ly Signed by Birdie Mccoy on 06/03/2019 at 221 4 Reported and signed by: Jayro Mccoy D.O. CC: Naldo Wilks MD Technolo gist: RT Solo(R)R Trnscrd Date/Time/B y: 06/03/2019 (2214) : By: [email or web address] Orig Print D/T: S: 06/03/2019 () PAGE 1 Signed Report [id number] 14:55:00* Test Item Value Reference Range Interpretation Comments GLUBED (test code = GLUBED) 103 MG/DL 70-110 N Performed by certified salt machine operator at [facility] BASIC METABOLIC [id number] 08:55:00* Test Item Value Reference Range Interpretation Comments SODIUM (test code = NA) 137 mEq/L 134-147 N POTASSIUM (test code = K) 4.3 mEq/L 3.4-5.0 N CHLORIDE (test code = CL) 101 mEq/L 100-108 N CARBON DIOXIDE (test code = CO2) 30 mEq/L 21-33 N ANION GAP (test code = GAP) 10 0-20 N GLUCOSE (test code = GLU) 114 mg/dL 70-110 H BLOOD UREA NITROGEN (test code = BUN) 16 mg/dL 7-18 GLOMERULAR FILTRATION RATE (test code = GFR) 55.0 95-105 L Units of measure = ml/min/1.73 m2 CREATININE (test code = CREAT) 1.1 mg/dL 0.6-1.3 N CALCIUM (test code = CA) 7.8 mg/dL 8.0-10.5 L [id number] 08:25:00* Test Item Value Reference Range Interpretation Comments GLUBED (test code = GLUBED) 115 MG/DL 70-110 H Performed by certified salt machine operator at [facility] CBC W/AUTO [id number] 07:07:00* Test Item Value Reference Range Interpretation Comments WHITE BLOOD CELL (test code = WBC) 11.23 x10 3/uL 4.5-11.0 H RED BLOOD CELL (test code = RBC) 3.54 x10 6/uL 3.54-5.02 N HEMOGLOBIN (test code = HGB) 8.2 g/dL 11.0-15.0 L HEMATOCRIT (test code = HCT) 26.8 % 33.0-45.0 L MEAN CELL VOLUME (test code = MCV) 75.7 fL 81.0-99.0 L MEAN CELL HGB (test code = MCH) 23.2 pg 27.0-33.0 L MEAN CELL HGB CONCETRATION (test code = MCHC) 30.6 g/dL 33.0-37. 0 L RED CELL DISTRIBUTION WIDTH CV (test code = RDW) 19.1 % 11.5- 14.5 H RED CELL DISTRIBUTION WIDTH SD (test code = RDW-SD) 52.7 fL 37 .0-54.0 N PLATELET COUNT (test code = PLT) 523 x10 3/uL 150-400 H MEAN PLATELET VOLUME (test code = MPV) 10.3 fL 7.0-9.0 H NEUTROPHIL % (test code = NT%) 76.5 % 56.0-77.0 N IMMATURE GRANULOCYTE % (test code = IG%) 0.4 % 0.0-2.0 N LYMPHOCYTE % (test code = LY%) 15.2 % 14.0-32.0 N MONOCYTE % (test code = MO%) 5.8 % 4.8-9.0 N EOSINOPHIL % (test code = EO%) 1.2 % 0.3-3.7 N BASOPHIL % (test code = BA%) 0.9 % 0.0-2.0 N NUCLEATED RBC % (test code = NRBC%) 0.0 % 0-0 N NEUTROPHIL # (test code = NT#) 8.58 x10 3/uL 2.0-7.6 H IMMATURE GRANULOCYTE # (test code = IG#) 0.05 x10 3/uL 0.00-0.03 H LYMPHOCYTE # (test code = LY#) 1.71 x10 3/uL 1.0-3.8 N MONOCYTE # (test code = MO#) 0.65 x10 3/uL 0.1-0.8 N EOSINOPHIL # (test code = EO#) 0.14 x10 3/uL 0.0-0.2 N BASOPHIL # (test code = BA#) 0.10 x10 3/uL 0.0-0.2 N NUCLEATED RBC # (test code = NRBC#) 0.00 x10 3/uL 0.0-0.1 N MANUAL DIFF REQUIRED (test code = MDIFF) NO [id number] 20:06:00* Test Item Value Reference Range Interpretation Comments GLUBED (test code = GLUBED) 98 MG/DL 70-110 N Performed by certified salt machine operator at [facility] - US GUIDANCE [facility] [id number] 19:27:00 FAX: Cal Mercado [phone] [place]: St: ADM FAX: Rashida Fields DO [phone] Name: SILVANO,CECILIO CASPER [facility] : 1975 Age/S: 42/F [address] [place], [place] [address]vd Unit #: [id number] Loc: GRenaldo431 [facility] X [address] Phys: Cal Barraza MD Acct: [id number] Dis Date: Status: ADM IN PHONE #: [phone] Exam Date: 10/25/20181924 FAX #: [phone] Reason: VASCULAR ACCESS FOR P ELVIC ANGIOGRAM EXAMS: CPT CODE: [id number] US GUIDANCE [facility] ACCESS 66368 Patient Name: CECILIO TOURE : 1975; Age: 42 y ears Female MR: [id number] Study: - US GUIDANCE VASC ACCESS, - SP EMB/OCC TMR/ORGN/INFRCT 10/25/2018 3:49 PM PROCEDURE: 1. Arteriography of the abdominal aorta 2. Selective arteriography of the left internal iliac artery 3. Subselective arteriography of the left uter ine artery 4. Post embolization arteriography of the left uterine artery 5. Selective arteriography of the right internal iliac artery 6. [place] bselective arteriography of the right uterine artery 7. Post embolization arteriography of the right uterine artery 8. Arteriography of the right co mmon femoral artery 9. Closure of the right common femoral arteriotomy usi ng MynxGrip closure device 10. Moderate sedation CLINI LULY INDICATION: 42 year-old female with severe menorrhagia requiring blood transfusions. COMPARISON: Pelvic ultrasound on 10/16/2018 CONSENT: The procedure, risks, benefits and alternatives were discus sed with the patient and written informed consent was obtained. A "time ou t" was performed per protocol prior to the procedure. TECHNIQUE: grinder set up operator internal: Dr. Galan Preoperative diagnosis: Severe menorrhagia requiring blood transfusions Postoperative diagno sis: Same Fluoroscopy time: 27 minutes Reference air kerma: 1958 mG y Estimated blood loss: Minimal Moderate conscious sedation using Versed 1 mg IV and Fentanyl 50 mcg IV for a total sedation time of 60 min. 1% lidocaine was administered for local anesthesia. Patient's adolph l signs were monitored continuously throughout the procedure by a dedicate d nurse. Additional medications administered: Toradol 30 mg IV, Zofran 4 mg IV, Dilaudid 0.5 mg IV PAGE 1 Signed Report (CONTINUED) FAX: Cal Mercado [phone] [place]: St: [facility] FAX: Rashida Fields DO [phone] --------- Name: CECILIO TOURE [facility] : [birth year] Age/S: 42/F [address] [place] [address] Unit #: [id number] Loc: [address] [place] [address] Phys: Cal Barraza MD Acct: [id number] Dis Date: Status: ADM IN PHONE #: [phone] Exam Date: 10/25/20181924 FAX #: [phone] Reason: VASCULAR ACCESS FOR PELVIC ANGIOGRAM EXAMS: CPT CODE: [id number] [facility] <Continued> The patient was placed in a supine position on the fluoroscopy table. The patient's right groin was prepped and draped with sterile technique. The overlying skin was anesthetized with 1% lidocaine. Under sterile ultrasound guidance, the right common femoral artery was accessed with a micropuncture needle. Subsequently, a 5-Prydeinig sheath was placed over a 0.035 inch Glidewire. A 5-Prydeinig pigtail catheter was advanced into the abdominal aorta followed by digital subtraction angiography. The pigtail catheter was exchanged for a 5-Prydeinig C2 catheter was then used to select the left internal iliac artery. Digital subtraction angiography of the left internal iliac artery demonstrated origin of the left uterine artery. Using a Renegade HiFlo microcatheter and 0.0 18 inch Transcend wire, the left uterine artery was subselected followed b y digital subtraction angiography. The left uterine artery was embolized using 700-900 um embospheres (2 vials). Intermittent fluoro scopy was utilized to visualize forward flow without evidence of reflux. Embolization was terminated once adequate stasis was achieved. Post embol ization arteriography of the left uterine artery demonstrated markedly slu ggish although forward flow. The 5-Prydeinig C2 catheter was th en formed into a Joe's loop and used to select the right internal dinesh c artery. Digital subtraction angiography of the right internal iliac art mel demonstrated origin of the right uterine artery. Using a Renegade HiFlo microcatheter and 0.018 inch Transcend wire, the right carl rine artery was subselected followed by digital subtraction angiography. The right uterine artery was embolized using 700-900 um embosphere s (2 vials). Intermittent fluoroscopy was utilized to visualize forward flow without evidence of reflux. Embolization was terminated once ad equate stasis was achieved. Post embolization arteriography of the right uterine artery demonstrated markedly sluggish although forward flow. PAGE 2 Signed Report (CONTINUED ) FAX: Cal Mercado [phone] [place]: St: [facility] FAX: Rashida Fields DO [phone] Name: CECILIO TOURE [facility] : 1975 Age/S: 42/F 52 [address] [facility] Unit #: [id number] Loc: [address] [address] Phys: Cal Barraza MD Acct: [id number] Dis Date: Status: ADM IN PHONE #: [phone] Exam Date: 1922 FAX #: [phone] Reason: VASCULAR ACCESS FOR PELVIC ANGIOGRAM EXAMS: CPT CODE: [id number] US GUIDANCE [facility] ACCESS 69387 <Continued> Arteriography of the right common femoral artery was then performed through the sheath. The right common femoral arteriotomy was closed using a MynxGrip closure device. Sterile dressings were applied. The patient tolerated the procedure well without immediate complication and transferred to the floor in stable condition. IMPRESSION: Successful bilateral uterine artery embolization. at 192 Reported and signed by: Mika Galan M.D. CC: Cal Barraza MD; Rashida Everett DO Technologist: Anne Horn RT(R) Trnscrd Date/Time/By: 10/25/2018 (1926) : By: [email or web address] Orig Print D/T: S: 10/25/2018 (1930) PAGE 3 Signed Report - SP KURTIS/PAULINO TMR/ORGN/[id number] 19:27:00 FAX: Cal Mercado [phone] [place]: St: ADM FAX: Rashida Fields DO [phone] Name: CECILIO TOURE [facility] : 1975 Age/S: 42/F [address] [place] [address] Unit #: [id number] Loc: G.[address] [place] [address] Phys: Cal Barraza MD Acct: [id number] Dis Date: Status: ADM IN PHONE #: [phone] Exam Date: 10/25/20181924 FAX #: [phone] Reason: EXAMS: CPT CODE: [id number] SP EMB/OCC TMR/ORGN/INFRCT 62617 Patient Name: CECILIO TOURE : 1975; Age: 42 years Female MR: [id number] Study: - US GUIDANCE VASC ACCESS, - SP EMB/OCC TMR/ORGN/INFRCT 10/25/2018 3:49 PM PROCEDURE: 1. Arteriography of the abdominal aorta 2. Selective arteriography of the left internal iliac artery 3. Subselective arteriography of the left uter ine artery 4. Post embolization arteriography of the left uterine artery 5. Selective arteriography of the right internal iliac artery 6. [place] bselective arteriography of the right uterine artery 7. Post embolization arteriography of the right uterine artery 8. Arteriography of the right co mmon femoral artery 9. Closure of the right common femoral arteriotomy usi ng MynxGrip closure device 10. Moderate sedation CLINI LULY INDICATION: 42 year-old female with severe menorrhagia requiring blood transfusions. COMPARISON: Pelvic ultrasound on 10/16/2018 CONSENT: The procedure, risks, benefits and alternatives were discus sed with the patient and written informed consent was obtained. A "time ou t" was performed per protocol prior to the procedure. TECHNIQUE: grinder set up operator internal: Dr. Galan Preoperative diagnosis: Severe menorrhagia requiring blood transfusions Postoperative diagno sis: Same Fluoroscopy time: 27 minutes Reference air kerma: 1958 mG y Estimated blood loss: Minimal Moderate conscious sedation using Versed 1 mg IV and Fentanyl 50 mcg IV for a total sedation time of 60 min. 1% lidocaine was administered for local anesthesia. Patient's adolph l signs were monitored continuously throughout the procedure by a dedicate d nurse. Additional medications administered: Toradol 30 mg IV, Zofran 4 mg IV, Dilaudid 0.5 mg IV PAGE 1 Signed Report (CONTINUED) FAX: Cal Mercado [phone] [place]: St: [facility] FAX: Rashida Fields DO [phone] --------- Name: SILVANOCECILIORenard SHIRLEY [facility] : [birth year] Age/S: 42/F [address] [place] [address] Unit #: [id number] Loc: [address] [address] Phys: Cal Barraza MD Acct: [id number] Dis Date: Status: ADM IN PHONE #: [phone] Exam Date: 10/25/20181924 FAX #: [phone] Reason: EXAMS: CPT CODE: [id number] SP EMB/OCC TMR/ORGN/I NFT 97836 <Continued> The patient was placed in a supine position on the fluoroscopy table. The patient's right groin was prepped and draped with sterile technique. The overlying skin was anesthetized with 1% lidocaine. Under sterile ultrasound guidance, the right common femoral artery was accessed with a micropuncture needle. Subsequently, a 5-Prydeinig sheath was placed over a 0.035 inch Glidewire. A 5-Prydeinig pigtail catheter was advanced into the abdominal aorta followed by digital subtraction angiography. The pigtail catheter was exchanged for a 5-Prydeinig C2 catheter was then used to select the left internal iliac artery. Digital subtraction angiography of the left internal iliac artery demonstrated origin of the left uterine artery. Using a Renegade HiFlo microcatheter and 0.0 18 inch Transcend wire, the left uterine artery was subselected followed b y digital subtraction angiography. The left uterine artery was embolized using 700-900 um embospheres (2 vials). Intermittent fluoro scopy was utilized to visualize forward flow without evidence of reflux. Embolization was terminated once adequate stasis was achieved. Post embol ization arteriography of the left uterine artery demonstrated markedly slu ggish although forward flow. The 5-Prydeinig C2 catheter was th en formed into a Joe's loop and used to select the right internal dinesh c artery. Digital subtraction angiography of the right internal iliac art mel demonstrated origin of the right uterine artery. Using a Renegade HiFlo microcatheter and 0.018 inch Transcend wire, the right carl rine artery was subselected followed by digital subtraction angiography. The right uterine artery was embolized using 700-900 um embosphere s (2 vials). Intermittent fluoroscopy was utilized to visualize forward flow without evidence of reflux. Embolization was terminated once ad equate stasis was achieved. Post embolization arteriography of the right uterine artery demonstrated markedly sluggish although forward flow. PAGE 2 Signed Report (CONTINUED ) FAX: Cal Mercado [phone] [place]: St: [facility] FAX: Rashida Fields DO [phone] Name: CECILIO TOURE [facility] : 1975 Age/S: 42/F [address] Unit #: [id number] Loc: [address] [address] Phys: Cal Barraza MD Acct: [id number] Dis Date: Status: ADM IN PHONE #: [phone] Exam Date: 1922 FAX #: [phone] Reason: EXAMS: CPT CODE: [id number] SP EMB/OCC TMR/ORGN/INFRCT 58603 <Continued> Arteriography of the right common femoral artery was then performed through the sheath. The right common femoral arteriotomy was closed using a MynxGrip closure device. Sterile dressings were applied. The patient tolerated the procedure well without immediate complication and transferred to the floor in stable condition. IMPRESSION: Successful bilateral uterine artery embolization. at 1927 Reported and signed by: Mika Galan M.D. CC: Cal Barraza MD; Rashida Everett DO Technologist: Anne Horn RT(R) Trnscrd Date/Time/By: 10/25/2018 (1926) : By: [email or web address] Orig Print D/T: S: 10/25/2018 (1930) PAGE 3 Signed Report [id number] 16:27:00* Test Item Value Reference Range Interpretation Comments GLUBED (test code = GLUBED) 112 MG/DL 70-110 H Performed by certified salt machine operator at [facility] HGB [id number] 15:34:00* Test Item Value Reference Range Interpretation Comments HEMOGLOBIN (test code = HGB) 8.7 g/dL 11.0-15.0 L HEMATOCRIT (test code = HCT) 28.5 % 33.0-45.0 L PROTHROMBIN [id number] 14:40:00* Test Item Value Reference Range Interpretation Comments PROTHROMBIN TIME PATIENT (test code = PTP) 12.3 SECONDS 9.3-12.9 N INTERNATIONAL NORMAL RATIO (test code = INR) 1.1 0.8-1.2 N TARGET INR BY INDICATION Indication INR1. Prophylaxis of venous thrombosis 2.0 - 3.0 (orthopedic surgery), Prophylaxis of venous thrombosis (other than high-risk surgery), Treatment of Deep Vein Thrombosis/Pulmonary Embolism, Prevention of systemic embolism - Tissue heart valves, Acute Myocardial Infarction (to prevent systemic embolism), Valvular heart disease, Atrial Fibrillation, Bileaflet mechanical valve in aortic position.2. Mechanical prosthetic valves (high risk), 2.5 - 3.5 Presence of Lupus Anticoagulant or Antiphospholipid Antibodies, Prevention of systemic embolism - Acute Myocardial Infarction (to prevent recurrent infarct). THROMBOPLASTIN TIME [id number] 14:40:00* Test Item Value Reference Range Interpretation Comments THROMBOPLASTIN TIME PARTIAL (test code = PTT) 30.7 Seconds 25.0-39. 5 N Therapeutic Range: 50.4 - 88.3 Seconds Effective 09/17/2018 [id number] 12:27:00* Test Item Value Reference Range Interpretation Comments GLUBED (test code = GLUBED) 155 MG/DL 70-110 H Performed by certified salt machine operator at [facility] [id number] 07:49:00* Test Item Value Reference Range Interpretation Comments GLUBED (test code = GLUBED) 184 MG/DL 70-110 H Performed by certified salt machine operator at [facility] CBC W/AUTO [id number] 04:03:00* Test Item Value Reference Range Interpretation Comments WHITE BLOOD CELL (test code = WBC) 9.37 x10 3/uL 4.5-11.0 N RED BLOOD CELL (test code = RBC) 3.53 x10 6/uL 3.54-5.02 L HEMOGLOBIN (test code = HGB) 8.1 g/dL 11.0-15.0 L HEMATOCRIT (test code = HCT) 26.4 % 33.0-45.0 L MEAN CELL VOLUME (test code = MCV) 74.8 fL 81.0-99.0 L MEAN CELL HGB (test code = MCH) 22.9 pg 27.0-33.0 L MEAN CELL HGB CONCETRATION (test code = MCHC) 30.7 g/dL 33.0-37. 0 L RED CELL DISTRIBUTION WIDTH CV (test code = RDW) 18.5 % 11.5- 14.5 H RED CELL DISTRIBUTION WIDTH SD (test code = RDW-SD) 50.0 fL 37 .0-54.0 N PLATELET COUNT (test code = PLT) 470 x10 3/uL 150-400 H MEAN PLATELET VOLUME (test code = MPV) 10.7 fL 7.0-9.0 H NEUTROPHIL % (test code = NT%) 62.8 % 56.0-77.0 N IMMATURE GRANULOCYTE % (test code = IG%) 0.4 % 0.0-2.0 N LYMPHOCYTE % (test code = LY%) 25.6 % 14.0-32.0 N MONOCYTE % (test code = MO%) 6.0 % 4.8-9.0 N EOSINOPHIL % (test code = EO%) 3.9 % 0.3-3.7 H BASOPHIL % (test code = BA%) 1.3 % 0.0-2.0 N NUCLEATED RBC % (test code = NRBC%) 0.0 % 0-0 N NEUTROPHIL # (test code = NT#) 5.88 x10 3/uL 2.0-7.6 N IMMATURE GRANULOCYTE # (test code = IG#) 0.04 x10 3/uL 0.00-0.03 H LYMPHOCYTE # (test code = LY#) 2.40 x10 3/uL 1.0-3.8 N MONOCYTE # (test code = MO#) 0.56 x10 3/uL 0.1-0.8 N EOSINOPHIL # (test code = EO#) 0.37 x10 3/uL 0.0-0.2 H BASOPHIL # (test code = BA#) 0.12 x10 3/uL 0.0-0.2 N NUCLEATED RBC # (test code = NRBC#) 0.00 x10 3/uL 0.0-0.1 N MANUAL DIFF REQUIRED (test code = MDIFF) NO RBC [id number] 04:03:00* Test Item Value Reference Range Interpretation Comments POLYCHROMASIA (test code = POLC) 1+ HYPOCHROMIA (test code = HYPO) SLIGHT POIKILOCYTOSIS (test code = POIK) SLIGHT ANISOCYTOSIS (test code = ANISO) 1+ MICROCYTOSIS (test code = MICR) 1+ MACROCYTOSIS (test code = MACR) FEW SCHISTOCYTES (test code = TAMMY) RARE STOMATOCYTES (test code = STO) FEW BASIC METABOLIC [id number] 03:42:00* Test Item Value Reference Range Interpretation Comments SODIUM (test code = NA) 139 mEq/L 134-147 N POTASSIUM (test code = K) 3.6 mEq/L 3.4-5.0 N CHLORIDE (test code = CL) 105 mEq/L 100-108 N CARBON DIOXIDE (test code = CO2) 27 mEq/L 21-33 N ANION GAP (test code = GAP) 11 0-20 N GLUCOSE (test code = GLU) 124 mg/dL 70-110 H BLOOD UREA NITROGEN (test code = BUN) 12 mg/dL 7-18 N GLOMERULAR FILTRATION RATE (test code = GFR) 61.4 95-105 L Units of measure = ml/min/1.73 m2 CREATININE (test code = CREAT) 1.0 mg/dL 0.6-1.3 N CALCIUM (test code = CA) 7.4 mg/dL 8.0-10.5 L CBC W/AUTO [id number] 03:34:00* Test Item Value Reference Range Interpretation Comments WHITE BLOOD CELL (test code = WBC) 9.37 x10 3/uL 4.5-11.0 N RED BLOOD CELL (test code = RBC) 3.53 x10 6/uL 3.54-5.02 L HEMOGLOBIN (test code = HGB) 8.1 g/dL 11.0-15.0 L HEMATOCRIT (test code = HCT) 26.4 % 33.0-45.0 L MEAN CELL VOLUME (test code = MCV) 74.8 fL 81.0-99.0 L MEAN CELL HGB (test code = MCH) 22.9 pg 27.0-33.0 L MEAN CELL HGB CONCETRATION (test code = MCHC) 30.7 g/dL 33.0-37. 0 L RED CELL DISTRIBUTION WIDTH CV (test code = RDW) 18.5 % 11.5- 14.5 H RED CELL DISTRIBUTION WIDTH SD (test code = RDW-SD) 50.0 fL 37 .0-54.0 N PLATELET COUNT (test code = PLT) 470 x10 3/uL 150-400 H MEAN PLATELET VOLUME (test code = MPV) 10.7 fL 7.0-9.0 H NEUTROPHIL % (test code = NT%) 62.8 % 56.0-77.0 N IMMATURE GRANULOCYTE % (test code = IG%) 0.4 % 0.0-2.0 N LYMPHOCYTE % (test code = LY%) 25.6 % 14.0-32.0 N MONOCYTE % (test code = MO%) 6.0 % 4.8-9.0 N EOSINOPHIL % (test code = EO%) 3.9 % 0.3-3.7 H BASOPHIL % (test code = BA%) 1.3 % 0.0-2.0 N NUCLEATED RBC % (test code = NRBC%) 0.0 % 0-0 N NEUTROPHIL # (test code = NT#) 5.88 x10 3/uL 2.0-7.6 N IMMATURE GRANULOCYTE # (test code = IG#) 0.04 x10 3/uL 0.00-0.03 H LYMPHOCYTE # (test code = LY#) 2.40 x10 3/uL 1.0-3.8 N MONOCYTE # (test code = MO#) 0.56 x10 3/uL 0.1-0.8 N EOSINOPHIL # (test code = EO#) 0.37 x10 3/uL 0.0-0.2 H BASOPHIL # (test code = BA#) 0.12 x10 3/uL 0.0-0.2 N NUCLEATED RBC # (test code = NRBC#) 0.00 x10 3/uL 0.0-0.1 N MANUAL DIFF REQUIRED (test code = MDIFF) NO RBC [id number] 03:34:00* Test Item Value Reference Range Interpretation Comments ANISOCYTOSIS (test code = ANISO) CBC W/AUTO [id number] 03:34:00* Test Item Value Reference Range Interpretation Comments WHITE BLOOD CELL (test code = WBC) 9.37 x10 3/uL 4.5-11.0 N RED BLOOD CELL (test code = RBC) 3.53 x10 6/uL 3.54-5.02 L HEMOGLOBIN (test code = HGB) 8.1 g/dL 11.0-15.0 L HEMATOCRIT (test code = HCT) 26.4 % 33.0-45.0 L MEAN CELL VOLUME (test code = MCV) 74.8 fL 81.0-99.0 L MEAN CELL HGB (test code = MCH) 22.9 pg 27.0-33.0 L MEAN CELL HGB CONCETRATION (test code = MCHC) 30.7 g/dL 33.0-37. 0 L RED CELL DISTRIBUTION WIDTH CV (test code = RDW) 18.5 % 11.5- 14.5 H RED CELL DISTRIBUTION WIDTH SD (test code = RDW-SD) 50.0 fL 37 .0-54.0 N PLATELET COUNT (test code = PLT) 470 x10 3/uL 150-400 H MEAN PLATELET VOLUME (test code = MPV) 10.7 fL 7.0-9.0 H NEUTROPHIL % (test code = NT%) 62.8 % 56.0-77.0 N IMMATURE GRANULOCYTE % (test code = IG%) 0.4 % 0.0-2.0 N LYMPHOCYTE % (test code = LY%) 25.6 % 14.0-32.0 N MONOCYTE % (test code = MO%) 6.0 % 4.8-9.0 N EOSINOPHIL % (test code = EO%) 3.9 % 0.3-3.7 H BASOPHIL % (test code = BA%) 1.3 % 0.0-2.0 N NUCLEATED RBC % (test code = NRBC%) 0.0 % 0-0 N NEUTROPHIL # (test code = NT#) 5.88 x10 3/uL 2.0-7.6 N IMMATURE GRANULOCYTE # (test code = IG#) 0.04 x10 3/uL 0.00-0.03 H LYMPHOCYTE # (test code = LY#) 2.40 x10 3/uL 1.0-3.8 N MONOCYTE # (test code = MO#) 0.56 x10 3/uL 0.1-0.8 N EOSINOPHIL # (test code = EO#) 0.37 x10 3/uL 0.0-0.2 H BASOPHIL # (test code = BA#) 0.12 x10 3/uL 0.0-0.2 N NUCLEATED RBC # (test code = NRBC#) 0.00 x10 3/uL 0.0-0.1 N MANUAL DIFF REQUIRED (test code = MDIFF) NO RBC [id number] 03:34:00* Test Item Value Reference Range Interpretation Comments ANISOCYTOSIS (test code = ANISO) CBC W/AUTO [id number] 03:33:00* Test Item Value Reference Range Interpretation Comments WHITE BLOOD CELL (test code = WBC) 9.37 x10 3/uL 4.5-11.0 N RED BLOOD CELL (test code = RBC) 3.53 x10 6/uL 3.54-5.02 L HEMOGLOBIN (test code = HGB) 8.1 g/dL 11.0-15.0 L HEMATOCRIT (test code = HCT) 26.4 % 33.0-45.0 L MEAN CELL VOLUME (test code = MCV) 74.8 fL 81.0-99.0 L MEAN CELL HGB (test code = MCH) 22.9 pg 27.0-33.0 L MEAN CELL HGB CONCETRATION (test code = MCHC) 30.7 g/dL 33.0-37. 0 L RED CELL DISTRIBUTION WIDTH CV (test code = RDW) 18.5 % 11.5- 14.5 H RED CELL DISTRIBUTION WIDTH SD (test code = RDW-SD) 50.0 fL 37 .0-54.0 N PLATELET COUNT (test code = PLT) 470 x10 3/uL 150-400 H MEAN PLATELET VOLUME (test code = MPV) 10.7 fL 7.0-9.0 H NEUTROPHIL % (test code = NT%) 62.8 % 56.0-77.0 N IMMATURE GRANULOCYTE % (test code = IG%) 0.4 % 0.0-2.0 N LYMPHOCYTE % (test code = LY%) 25.6 % 14.0-32.0 N MONOCYTE % (test code = MO%) 6.0 % 4.8-9.0 N EOSINOPHIL % (test code = EO%) 3.9 % 0.3-3.7 H BASOPHIL % (test code = BA%) 1.3 % 0.0-2.0 N NUCLEATED RBC % (test code = NRBC%) 0.0 % 0-0 N NEUTROPHIL # (test code = NT#) 5.88 x10 3/uL 2.0-7.6 N IMMATURE GRANULOCYTE # (test code = IG#) 0.04 x10 3/uL 0.00-0.03 H LYMPHOCYTE # (test code = LY#) 2.40 x10 3/uL 1.0-3.8 N MONOCYTE # (test code = MO#) 0.56 x10 3/uL 0.1-0.8 N EOSINOPHIL # (test code = EO#) 0.37 x10 3/uL 0.0-0.2 H BASOPHIL # (test code = BA#) 0.12 x10 3/uL 0.0-0.2 N NUCLEATED RBC # (test code = NRBC#) 0.00 x10 3/uL 0.0-0.1 N MANUAL DIFF REQUIRED (test code = MDIFF) NO [id number] 00:57:00* Test Item Value Reference Range Interpretation Comments TROPONIN-I (test code = TROPI) < 0.015 ng/mL 0.000-0.045 N Negative: <= 0.045 Positive: >= 0.046 Correlation with serial results, other cardiac markers andclinical findings is necessary to determine the clinicalsignificance of this result. Results using different methodologies should not be comparedto one another as quantitative results may vary by method. COMMENTS: 3 troponins total (including troponin done in ED)HGB [id number] 00:42:00* Test Item Value Reference Range Interpretation Comments HEMOGLOBIN (test code = HGB) 8.1 g/dL 11.0-15.0 L HEMATOCRIT (test code = HCT) 26.1 % 33.0-45.0 L [id number] 20:37:00* Test Item Value Reference Range Interpretation Comments GLUBED (test code = GLUBED) 123 MG/DL 70-110 H Performed by certified salt machine operator at [facility] URINALYSIS [id number] 18:19:00* Test Item Value Reference Range Interpretation Comments UA COLOR (test code = COLU) YEL/STRAW UA APPEARANCE (test code = APPU) CLEAR UA GLUCOSE DIPSTICK (test code = DGLUU) NEGATIVE UA BILIRUBIN DIPSTICK (test code = BILU) NEGATIVE UA KETONE DIPSTICK (test code = KETU) NEGATIVE UA SPECIFIC GRAVITY (test code = SGU) 1.005-1.030 UA BLOOD DIPSTICK (test code = MEENA) NEGATIVE UA PH DIPSTICK (test code = SUSAN) 5.0-7.0 UA PROTEIN DIPSTICK (test code = PROU) NEGATIVE UA UROBILINIOGEN DIPSTICK (test code = URO) mg/dL 0.2-1.0 UA NITRITE DIPSTICK (test code = EDUARDO) NEGATIVE UA LEUKOCYTE ESTERASE DIPSTICK (test code = LEUU) NEGA TIVE UA WBC (test code = WBCU) 21-50 WBC/HPF 0-3 A UA RBC (test code = RBCU) >50 RBC/HPF 0-3 A UA BACTERIA (test code = BACU) NONE SEEN /HPF NONE SEEN UA SQUAMOUS CELLS (test code = SQU) NONE SEEN /HPF NONE SEEN UA CULT [id number] 18:19:00* Test Item Value Reference Range Interpretation Comments UA CULTURE NEEDED? (test code = UACULT) Criteria Culture Chk URINALYSIS [id number] 18:19:00* Test Item Value Reference Range Interpretation Comments UA COLOR (test code = COLU) RED YEL/STRAW A UA APPEARANCE (test code = APPU) CLOUDY CLEAR A UA GLUCOSE DIPSTICK (test code = DGLUU) 1+ NEGATIVE A UA BILIRUBIN DIPSTICK (test code = BILU) NEGATIVE NEGATIVE UA KETONE DIPSTICK (test code = KETU) NEGATIVE NEGATIVE UA SPECIFIC GRAVITY (test code = SGU) 1.009 1.005-1.030 N UA BLOOD DIPSTICK (test code = MEENA) 3+ NEGATIVE A UA PH DIPSTICK (test code = SUSAN) 7.0 5.0-7.0 N UA PROTEIN DIPSTICK (test code = PROU) 2+ NEGATIVE A UA UROBILINIOGEN DIPSTICK (test code = URO) 0.2 mg/dL 0.2-1.0 UA NITRITE DIPSTICK (test code = EDUARDO) POSITIVE NEGATIVE A UA LEUKOCYTE ESTERASE DIPSTICK (test code = LEUU) NEGATIVE NEGA TIVE UA WBC (test code = WBCU) 21-50 WBC/HPF 0-3 A UA RBC (test code = RBCU) >50 RBC/HPF 0-3 A UA BACTERIA (test code = BACU) NONE SEEN /HPF NONE SEEN UA SQUAMOUS CELLS (test code = SQU) NONE SEEN /HPF NONE SEEN UA CULT [id number] 18:19:00* Test Item Value Reference Range Interpretation Comments UA CULTURE NEEDED? (test code = UACULT) YES,WBC>10 & EPI<=25 Criteria Culture Chk Criteria met, Urine Cultur e in-process. [id number] 16:50:00* Test Item Value Reference Range Interpretation Comments GLUBED (test code = GLUBED) 234 MG/DL 70-110 H Performed by certified salt machine operator at [facility] T4 [id number] 15:59:00* Test Item Value Reference Range Interpretation Comments T4 FREE (test code = T4F) 0.3 ng/dL 0.77-1.61 L THYROID STIMULATING [id number] 15:59:00* Test Item Value Reference Range Interpretation Comments THYROID STIMULATING HORMONE (test code = TSH) 34.70 0.42-5.4 7 H Results in abbe-International Units/mL [id number] 15:59:00* Test Item Value Reference Range Interpretation Comments TROPONIN-I (test code = TROPI) < 0.015 ng/mL 0.000-0.045 N Negative: <= 0.045 Positive: >= 0.046 Correlation with serial results, other cardiac markers andclinical findings is necessary to determine the clinicalsignificance of this result. Results using different methodologies should not be comparedto one another as quantitative results may vary by method. HGBA1C%2018-10-24 15:48:00* Test Item Value Reference Range Interpretation Comments HGBA1C% (test code = HGBA1C%) 10.1 %A1C 4.8-6.0 H [id number] 14:18:00* Test Item Value Reference Range Interpretation Comments GLUBED (test code = GLUBED) 194 MG/DL 70-110 H Performed by certified salt machine operator at [facility] [id number] 12:49:00* Test Item Value Reference Range Interpretation Comments GLUBED (test code = GLUBED) 167 MG/DL 70-110 H Performed by certified salt machine operator at [facility] B-TYPE NATRIURETIC [id number] 10:08:00* Test Item Value Reference Range Interpretation Comments B-TYPE NATRIURETIC PEPTIDE (test code = BNP) 50.7 PG/ML 0-100 N HCG SERUM [id number] 09:35:00* Test Item Value Reference Range Interpretation Comments HCG SERUM QUAL (test code = HCGQL) SERUM NEGATIVE NEGATIVE CBC W/AUTO [id number] 09:27:00* Test Item Value Reference Range Interpretation Comments WHITE BLOOD CELL (test code = WBC) 8.46 x10 3/uL 4.5-11.0 N RED BLOOD CELL (test code = RBC) 3.41 x10 6/uL 3.54-5.02 L HEMOGLOBIN (test code = HGB) 7.6 g/dL 11.0-15.0 L HEMATOCRIT (test code = HCT) 25.1 % 33.0-45.0 L MEAN CELL VOLUME (test code = MCV) 73.6 fL 81.0-99.0 L MEAN CELL HGB (test code = MCH) 22.3 pg 27.0-33.0 L MEAN CELL HGB CONCETRATION (test code = MCHC) 30.3 g/dL 33.0-37. 0 L RED CELL DISTRIBUTION WIDTH CV (test code = RDW) 19.0 % 11.5- 14.5 H RED CELL DISTRIBUTION WIDTH SD (test code = RDW-SD) 50.7 fL 37 .0-54.0 N PLATELET COUNT (test code = PLT) 489 x10 3/uL 150-400 H MEAN PLATELET VOLUME (test code = MPV) 10.6 fL 7.0-9.0 H NEUTROPHIL % (test code = NT%) 65.3 % 56.0-77.0 N IMMATURE GRANULOCYTE % (test code = IG%) 0.4 % 0.0-2.0 N LYMPHOCYTE % (test code = LY%) 25.3 % 14.0-32.0 N MONOCYTE % (test code = MO%) 5.3 % 4.8-9.0 N EOSINOPHIL % (test code = EO%) 3.0 % 0.3-3.7 N BASOPHIL % (test code = BA%) 0.7 % 0.0-2.0 N NUCLEATED RBC % (test code = NRBC%) 0.0 % 0-0 N NEUTROPHIL # (test code = NT#) 5.53 x10 3/uL 2.0-7.6 N IMMATURE GRANULOCYTE # (test code = IG#) 0.03 x10 3/uL 0.00-0.03 N LYMPHOCYTE # (test code = LY#) 2.14 x10 3/uL 1.0-3.8 N MONOCYTE # (test code = MO#) 0.45 x10 3/uL 0.1-0.8 N EOSINOPHIL # (test code = EO#) 0.25 x10 3/uL 0.0-0.2 H BASOPHIL # (test code = BA#) 0.06 x10 3/uL 0.0-0.2 N NUCLEATED RBC # (test code = NRBC#) 0.00 x10 3/uL 0.0-0.1 N MANUAL DIFF REQUIRED (test code = IFF) NO - XR CHEST 1 [id number] 09:14:00 FAX: Cal Archer MD [phone] [place]: St: PRE Name: CECILIO VALADEZ [facility] : [birth year] Age/S: 42/F [address] [place] [address] Unit #: [id number] Loc: [address] [address] Phys: Cal Reardon MD Acct: [id number] Dis Date: Status: PRE ER PHONE #: [phone] Exam Date: 10/24/2018908 FAX #: [phone] Reason: Chest Pain EXAMS: CPT CODE: [id number] XR CHEST 1 V 11846 CLINICAL HISTORY: Chest pain. COMPARISON: October 15, 2018. AP film of the chest performed at Port-A-Cath with its tip in right atrium. Sternotomy sutures and lexy tor leads are in place. Heart size is normal and lung barba are c lear. There is no evidence of pneumonia or congestive failure. IMPRESSION: 1. Tip of Port-A-Cath in right atrium. 2. No evidence of pneumonia or congestive failure. at 0914 Reported and s igned by: Luis Wayne M.D. CC: Cal Reardon MD Technologist: Selvin Chang, RT(R); Cecilio soares, RT(R) Trnscrd Date/Time/By: 10/24/2018 (913) : By: Erica Orig Print D/T: S: 10/24/2018 (18) PAGE 1 Signed Report TROPONIN-I RAPID 2018-10-24 09:13:00* Test Item Value Reference Range Interpretation Comments TROPONIN-I RAPID (test code = TROPIRAP) 0.00 ng/mL 0.00-0.08 N Performed by certified salt machine operator at [facility] Negative: <= 0.08 Positive: >= 0.09An elevated troponin value alone is not sufficient todiagnose a myocardial infarction. Rather, the patient sclinical presentation (history, physical exam) and ECGshould be used in conjunction with troponin in thediagnostic evaluation of suspected myocardial infarction. Aserial sampling protocol is recommended to facilitate the identification of temporal changes in troponin levels characteristic of CT. CHEMISTRY 8 [id number] 09:06:00* Test Item Value Reference Range Interpretation Comments ISTAT-SODIUM (test code = NAP) MMOL/L 134-147 ISTAT-POTASSIUM (test code = KP) MMOL/L 3.4-5.0 ISTAT-CHLORIDE (test code = CLP) MMOL/L 100-108 ISTAT CARBON DIOXIDE (test code = ISTAT-CO2) mmol/L 21-33 N ISTAT CALCIUM IONIZED (test code = ISTAT-CHACHA) MG/DL 1.12-1.3 2 ISTAT-GLUCOSE (test code = GLUP) MG/DL 70-110 H ISTAT-BUN (test code = BUNP) MG/DL 7-18 N BEDSIDE CREATININE (test code = CREATBED) MG/DL 0.6-1.3 N GLOMERULAR FILTRATION RATE POC (test code = GFRBED) 74 ML/MIN CHEMISTRY 8 [id number] 09:06:00* Test Item Value Reference Range Interpretation Comments ISTAT-SODIUM (test code = NAP) 137 MMOL/L 134-147 N ISTAT-POTASSIUM (test code = KP) 4.2 MMOL/L 3.4-5.0 N ISTAT-CHLORIDE (test code = CLP) 99 MMOL/L 100-108 L Performed by certified salt machine operator at [facility] ISTAT CARBON DIOXIDE (test code = ISTAT-CO2) 26.0 mmol/L 21-33 N ISTAT CALCIUM IONIZED (test code = ISTAT-CHACHA) 1.02 MG/DL 1.12-1.3 2 L ISTAT-GLUCOSE (test code = GLUP) 209 MG/DL 70-110 H ISTAT-BUN (test code = BUNP) 14 MG/DL 7-18 N BEDSIDE CREATININE (test code = CREATBED) 0.9 MG/DL 0.6-1.3 N GLOMERULAR FILTRATION RATE POC (test code = GFRBED) 74 ML/MIN [id number] 11:40:00* Test Item Value Reference Range Interpretation Comments GLUBED (test code = GLUBED) 205 MG/DL 70-110 H Performed by certified salt machine operator at [facility] BASIC METABOLIC [id number] 09:10:00* Test Item Value Reference Range Interpretation Comments SODIUM (test code = NA) 136 mEq/L 134-147 N POTASSIUM (test code = K) 3.7 mEq/L 3.4-5.0 N CHLORIDE (test code = CL) 101 mEq/L 100-108 N CARBON DIOXIDE (test code = CO2) 26 mEq/L 21-33 N ANION GAP (test code = GAP) 13 0-20 N GLUCOSE (test code = GLU) 190 mg/dL 70-110 H BLOOD UREA NITROGEN (test code = BUN) 12 mg/dL 7-18 N GLOMERULAR FILTRATION RATE (test code = GFR) 61.4 95-105 L Units of measure = ml/min/1.73 m2 CREATININE (test code = CREAT) 1.0 mg/dL 0.6-1.3 N CALCIUM (test code = CA) 7.6 mg/dL 8.0-10.5 L [id number] 08:26:00* Test Item Value Reference Range Interpretation Comments GLUBED (test code = GLUBED) 222 MG/DL 70-110 H Performed by certified salt machine operator at [facility] CBC W/AUTO [id number] 07:59:00* Test Item Value Reference Range Interpretation Comments WHITE BLOOD CELL (test code = WBC) 8.49 x10 3/uL 4.5-11.0 N RED BLOOD CELL (test code = RBC) 4.24 x10 6/uL 3.54-5.02 N HEMOGLOBIN (test code = HGB) 9.5 g/dL 11.0-15.0 L HEMATOCRIT (test code = HCT) 31.7 % 33.0-45.0 L MEAN CELL VOLUME (test code = MCV) 74.8 fL 81.0-99.0 L MEAN CELL HGB (test code = MCH) 22.4 pg 27.0-33.0 L MEAN CELL HGB CONCETRATION (test code = MCHC) 30.0 g/dL 33.0-37. 0 L RED CELL DISTRIBUTION WIDTH CV (test code = RDW) 18.8 % 11.5- 14.5 H RED CELL DISTRIBUTION WIDTH SD (test code = RDW-SD) 50.0 fL 37 .0-54.0 N PLATELET COUNT (test code = PLT) 461 x10 3/uL 150-400 H MEAN PLATELET VOLUME (test code = MPV) 10.1 fL 7.0-9.0 H NEUTROPHIL % (test code = NT%) 62.4 % 56.0-77.0 N IMMATURE GRANULOCYTE % (test code = IG%) 0.5 % 0.0-2.0 N LYMPHOCYTE % (test code = LY%) 24.1 % 14.0-32.0 N MONOCYTE % (test code = MO%) 6.9 % 4.8-9.0 N EOSINOPHIL % (test code = EO%) 4.9 % 0.3-3.7 H BASOPHIL % (test code = BA%) 1.2 % 0.0-2.0 N NUCLEATED RBC % (test code = NRBC%) 0.0 % 0-0 N NEUTROPHIL # (test code = NT#) 5.29 x10 3/uL 2.0-7.6 N IMMATURE GRANULOCYTE # (test code = IG#) 0.04 x10 3/uL 0.00-0.03 H LYMPHOCYTE # (test code = LY#) 2.05 x10 3/uL 1.0-3.8 N MONOCYTE # (test code = MO#) 0.59 x10 3/uL 0.1-0.8 N EOSINOPHIL # (test code = EO#) 0.42 x10 3/uL 0.0-0.2 H BASOPHIL # (test code = BA#) 0.10 x10 3/uL 0.0-0.2 N NUCLEATED RBC # (test code = NRBC#) 0.00 x10 3/uL 0.0-0.1 N MANUAL DIFF REQUIRED (test code = MDIFF) NO [id number] 20:14:00* Test Item Value Reference Range Interpretation Comments GLUBED (test code = GLUBED) 221 MG/DL 70-110 H Performed by certified salt machine operator at [facility] - US TRANSVAGINAL NON [id number] 18:56:00 Name: CECILIO TOURE [facility] : 1975 Age/S: 42 / F [address] [place] [address] Unit #: [id number] Loc: [place] [address] Phys: Ben Baltazar MD Acct: [id number] Dis Date: Status: ADM IN PHONE #: [phone] Exam Date: 10/16/20181813 FAX #: [phone] Reason: VB/ IUD PLACEMENT EXAMS: CPT CODE: [id number] [place] [address] PROCEDURE: PELVIC ULTRASOUND INDICATION: Acute vaginal bleeding. Evaluate IUD. COMPARISON: Previous abdominal image of March 2018. Previous pelvic ultrasound of April 2017. TECHNIQUE: Sonographic evaluation was performed using high resolution B-mode, pulse and color Doppler imaging. TRANSABDOMINAL SCAN: The uterus is mildly enlarged measuring 11 cm in length. The myometrium is heterogeneous. A single, small, 1.3 cm solid myometrial masses identified near the uterine neck, and compatible with a small fibroid. No IUD identified within the endometrial space. Endometrial thickness is 10 mm. TRANSVAGINAL SCAN: Transvaginal im aging was performed to better evaluate the endometrial space and ovaries. The right ovary measures up to 3.1 cm with normal Doppler analysis. Th e left ovary measures up to 3.9 cm with normal Doppler analysis. A 2.7 cm follicle is present within the left ovary. Nabothian cysts are identified in the paracervical myometrium. No IUD identified within t he endometrial space. IMPRESSION: 1. No IUD identified within the endometrial space. 2. Mild to moderate generalized uterine e nlargement. 3. 1.3 cm fibroid. 4. Negative evaluation of the o varies. No evidence of torsion. SL:01 at 1856 Report ed and signed by: Glen Irizarry M.D. CC: Ben Baltazar MD Technologist: Godfrey Peralta RDMS (AB) (OB) Trnscb Date/Time: 10/16/2018 (1855) Mak Orig Print D/T: S: 10/16/2018 (1858) Probe: [id number] PAGE 1 Signed Report - US PELVIS [id number] 18:56:00 Name: CECILIO TOURE [facility] : 1975 Age/S: 42 / F [address] [place] [address] Unit #: [id number] Loc: [place] [address] Phys: Orly Schuler MD Acct: [id number] Dis Date: Status: ADM IN PHONE #: [phone] Exam Date: 10/16/20181813 FAX #: [phone] Reason: vaginal bleeding EXAMS: CPT CODE: [id number] US PELVIS COMPLETE [id number] PROCEDURE: PELVIC ULTRASOUND INDICATION: Acute vaginal bleeding. Evaluate IUD. COMPARISON: Previous abdominal image of March 2018. Previous pelvic ultrasound of April 2017. TECHNIQUE: Sonographic evaluation was performed using high resolution B- mode, pulse and color Doppler imaging. TRANSABDOMINAL SCAN: The uterus is mildly enlarged measuring 11 cm in length. The myometrium is heterogeneous. A single, small, 1.3 cm solid myometrial masses identified near the uterine neck, and compatible with a small fibroid. No IUD identified within the endometrial space. Endometrial thickness is 10 mm. TRANSVAGINAL SCAN: Transvaginal imaging was performed to better evaluate the endometrial space and ovaries. The right ovary measures up to 3.1 cm with normal Doppler analysis. The left ovary measures up to 3.9 cm with normal Doppler analysis. A 2.7 cm follicle is present within the left ovary. Nabothian cysts are identified in the paracervical myometrium. No IUD identified within the endometrial space. IMPRESSION: 1. No IUD identified within the endometrial space. 2. Mild to moderate generalized uterine enlargement. 3. 1.3 cm fibroid. 4. Negative evaluation of the ovaries. No evidence of torsion. SL:01 at 1856 Reported and signed by: Glen Irizarry M.D. CC: Orly Schuler MD; Bne Baltazar MD Technologist: Godfrey Peralta RDMS (AB) (OB) Trnscb Date/Time: 10/16/2018 (1855) Mak Orig Print D/T: S: 10/16/2018 (1858) Probe: PAGE 1 Signed Report [id number] 17:11:00* Test Item Value Reference Range Interpretation Comments GLUBED (test code = GLUBED) 215 MG/DL 70-110 H Performed by certified salt machine operator at [facility] [id number] 12:25:00* Test Item Value Reference Range Interpretation Comments GLUBED (test code = GLUBED) 204 MG/DL 70-110 H Performed by certified salt machine operator at [facility] CBC W/AUTO [id number] 08:12:00* Test Item Value Reference Range Interpretation Comments WHITE BLOOD CELL (test code = WBC) 7.97 x10 3/uL 4.5-11.0 N RED BLOOD CELL (test code = RBC) 4.08 x10 6/uL 3.54-5.02 N HEMOGLOBIN (test code = HGB) 9.0 g/dL 11.0-15.0 L HEMATOCRIT (test code = HCT) 30.3 % 33.0-45.0 L MEAN CELL VOLUME (test code = MCV) 74.3 fL 81.0-99.0 L MEAN CELL HGB (test code = MCH) 22.1 pg 27.0-33.0 L MEAN CELL HGB CONCETRATION (test code = MCHC) 29.7 g/dL 33.0-37. 0 L RED CELL DISTRIBUTION WIDTH CV (test code = RDW) 18.5 % 11.5- 14.5 H RED CELL DISTRIBUTION WIDTH SD (test code = RDW-SD) 49.4 fL 37 .0-54.0 N PLATELET COUNT (test code = PLT) 441 x10 3/uL 150-400 H MEAN PLATELET VOLUME (test code = MPV) 10.4 fL 7.0-9.0 H NEUTROPHIL % (test code = NT%) 68.6 % 56.0-77.0 N IMMATURE GRANULOCYTE % (test code = IG%) 0.5 % 0.0-2.0 N LYMPHOCYTE % (test code = LY%) 19.1 % 14.0-32.0 N MONOCYTE % (test code = MO%) 5.1 % 4.8-9.0 N EOSINOPHIL % (test code = EO%) 5.3 % 0.3-3.7 H BASOPHIL % (test code = BA%) 1.4 % 0.0-2.0 N NUCLEATED RBC % (test code = NRBC%) 0.0 % 0-0 N NEUTROPHIL # (test code = NT#) 5.47 x10 3/uL 2.0-7.6 N IMMATURE GRANULOCYTE # (test code = IG#) 0.04 x10 3/uL 0.00-0.03 H LYMPHOCYTE # (test code = LY#) 1.52 x10 3/uL 1.0-3.8 N MONOCYTE # (test code = MO#) 0.41 x10 3/uL 0.1-0.8 N EOSINOPHIL # (test code = EO#) 0.42 x10 3/uL 0.0-0.2 H BASOPHIL # (test code = BA#) 0.11 x10 3/uL 0.0-0.2 N NUCLEATED RBC # (test code = NRBC#) 0.00 x10 3/uL 0.0-0.1 N MANUAL DIFF REQUIRED (test code = MDIFF) NO [id number] 08:00:00* Test Item Value Reference Range Interpretation Comments GLUBED (test code = GLUBED) 189 MG/DL 70-110 H Performed by certified salt machine operator at [facility] BASIC METABOLIC [id number] 07:52:00* Test Item Value Reference Range Interpretation Comments SODIUM (test code = NA) 137 mEq/L 134-147 N POTASSIUM (test code = K) 3.7 mEq/L 3.4-5.0 N CHLORIDE (test code = CL) 104 mEq/L 100-108 N CARBON DIOXIDE (test code = CO2) 24 mEq/L 21-33 N ANION GAP (test code = GAP) 13 0-20 N GLUCOSE (test code = GLU) 208 mg/dL 70-110 H BLOOD UREA NITROGEN (test code = BUN) 10 mg/dL 7-18 N GLOMERULAR FILTRATION RATE (test code = GFR) 61.4 95-105 L Units of measure = ml/min/1.73 m2 CREATININE (test code = CREAT) 1.0 mg/dL 0.6-1.3 N CALCIUM (test code = CA) 7.5 mg/dL 8.0-10.5 L [id number] 20:31:00* Test Item Value Reference Range Interpretation Comments GLUBED (test code = GLUBED) 144 MG/DL 70-110 H Performed by certified salt machine operator at [facility] [id number] 20:23:00* Test Item Value Reference Range Interpretation Comments TROPONIN-I (test code = TROPI) < 0.015 ng/mL 0.000-0.045 N Negative: <= 0.045 Positive: >= 0.046 Correlation with serial results, other cardiac markers andclinical findings is necessary to determine the clinicalsignificance of this result. Results using different methodologies should not be comparedto one another as quantitative results may vary by method. COMMENTS: 3 troponins total (including troponin done in ED)CBC W/AUTO DIFF 2018-10-15 20:08:00* Test Item Value Reference Range Interpretation Comments WHITE BLOOD CELL (test code = WBC) 7.84 x10 3/uL 4.5-11.0 N RED BLOOD CELL (test code = RBC) 3.87 x10 6/uL 3.54-5.02 N HEMOGLOBIN (test code = HGB) 8.2 g/dL 11.0-15.0 L HEMATOCRIT (test code = HCT) 28.5 % 33.0-45.0 L MEAN CELL VOLUME (test code = MCV) 73.6 fL 81.0-99.0 L MEAN CELL HGB (test code = MCH) 21.2 pg 27.0-33.0 L MEAN CELL HGB CONCETRATION (test code = MCHC) 28.8 g/dL 33.0-37. 0 L RED CELL DISTRIBUTION WIDTH CV (test code = RDW) 18.2 % 11.5- 14.5 H RED CELL DISTRIBUTION WIDTH SD (test code = RDW-SD) 48.1 fL 37 .0-54.0 N PLATELET COUNT (test code = PLT) 452 x10 3/uL 150-400 H MEAN PLATELET VOLUME (test code = MPV) 10.1 fL 7.0-9.0 H NEUTROPHIL % (test code = NT%) 68.2 % 56.0-77.0 N IMMATURE GRANULOCYTE % (test code = IG%) 0.4 % 0.0-2.0 N LYMPHOCYTE % (test code = LY%) 20.7 % 14.0-32.0 N MONOCYTE % (test code = MO%) 5.1 % 4.8-9.0 N EOSINOPHIL % (test code = EO%) 4.3 % 0.3-3.7 H BASOPHIL % (test code = BA%) 1.3 % 0.0-2.0 N NUCLEATED RBC % (test code = NRBC%) 0.0 % 0-0 N NEUTROPHIL # (test code = NT#) 5.35 x10 3/uL 2.0-7.6 N IMMATURE GRANULOCYTE # (test code = IG#) 0.03 x10 3/uL 0.00-0.03 N LYMPHOCYTE # (test code = LY#) 1.62 x10 3/uL 1.0-3.8 N MONOCYTE # (test code = MO#) 0.40 x10 3/uL 0.1-0.8 N EOSINOPHIL # (test code = EO#) 0.34 x10 3/uL 0.0-0.2 H BASOPHIL # (test code = BA#) 0.10 x10 3/uL 0.0-0.2 N NUCLEATED RBC # (test code = NRBC#) 0.00 x10 3/uL 0.0-0.1 N MANUAL DIFF REQUIRED (test code = MDIFF) NO [id number] 15:34:00* Test Item Value Reference Range Interpretation Comments TROPONIN-I (test code = TROPI) < 0.015 ng/mL 0.000-0.045 N Negative: <= 0.045 Positive: >= 0.046 Correlation with serial results, other cardiac markers andclinical findings is necessary to determine the clinicalsignificance of this result. Results using different methodologies should not be comparedto one another as quantitative results may vary by method. COMMENTS: 3 troponins total (including troponin done in ED)CBC W/AUTO DIFF 2018-10-15 13:33:00* Test Item Value Reference Range Interpretation Comments WHITE BLOOD CELL (test code = WBC) 8.35 x10 3/uL 4.5-11.0 N RED BLOOD CELL (test code = RBC) 3.49 x10 6/uL 3.54-5.02 L HEMOGLOBIN (test code = HGB) 7.0 g/dL 11.0-15.0 L HEMATOCRIT (test code = HCT) 24.6 % 33.0-45.0 L MEAN CELL VOLUME (test code = MCV) 70.5 fL 81.0-99.0 L MEAN CELL HGB (test code = MCH) 20.1 pg 27.0-33.0 L MEAN CELL HGB CONCETRATION (test code = MCHC) 28.5 g/dL 33.0-37. 0 L RED CELL DISTRIBUTION WIDTH CV (test code = RDW) 18.2 % 11.5- 14.5 H RED CELL DISTRIBUTION WIDTH SD (test code = RDW-SD) 46.1 fL 37 .0-54.0 N PLATELET COUNT (test code = PLT) 500 x10 3/uL 150-400 H MEAN PLATELET VOLUME (test code = MPV) 10.3 fL 7.0-9.0 H NEUTROPHIL % (test code = NT%) 68.2 % 56.0-77.0 N IMMATURE GRANULOCYTE % (test code = IG%) 0.4 % 0.0-2.0 N LYMPHOCYTE % (test code = LY%) 22.4 % 14.0-32.0 N MONOCYTE % (test code = MO%) 5.4 % 4.8-9.0 N EOSINOPHIL % (test code = EO%) 2.4 % 0.3-3.7 N BASOPHIL % (test code = BA%) 1.2 % 0.0-2.0 N NUCLEATED RBC % (test code = NRBC%) 0.0 % 0-0 N NEUTROPHIL # (test code = NT#) 5.70 x10 3/uL 2.0-7.6 N IMMATURE GRANULOCYTE # (test code = IG#) 0.03 x10 3/uL 0.00-0.03 N LYMPHOCYTE # (test code = LY#) 1.87 x10 3/uL 1.0-3.8 N MONOCYTE # (test code = MO#) 0.45 x10 3/uL 0.1-0.8 N EOSINOPHIL # (test code = EO#) 0.20 x10 3/uL 0.0-0.2 N BASOPHIL # (test code = BA#) 0.10 x10 3/uL 0.0-0.2 N NUCLEATED RBC # (test code = NRBC#) 0.00 x10 3/uL 0.0-0.1 N MANUAL DIFF REQUIRED (test code = MDIFF) NO RBC [id number] 13:33:00* Test Item Value Reference Range Interpretation Comments POLYCHROMASIA (test code = POLC) SLIGHT HYPOCHROMIA (test code = HYPO) SLIGHT POIKILOCYTOSIS (test code = POIK) 2+ RARE STOMATOCYTES SEEN ANISOCYTOSIS (test code = ANISO) 2+ MICROCYTOSIS (test code = MICR) 2+ TARGET CELLS (test code = TGT) 1+ TEAR DROP CELLS (test code = TEAR) FEW SCHISTOCYTES (test code = TAMMY) FEW B-TYPE NATRIURETIC [id number] 13:30:00* Test Item Value Reference Range Interpretation Comments B-TYPE NATRIURETIC PEPTIDE (test code = BNP) 68.0 PG/ML 0-100 N BASIC METABOLIC [id number] 12:49:00* Test Item Value Reference Range Interpretation Comments SODIUM (test code = NA) 134 mEq/L 134-147 N POTASSIUM (test code = K) 3.9 mEq/L 3.4-5.0 N CHLORIDE (test code = CL) 100 mEq/L 100-108 N CARBON DIOXIDE (test code = CO2) 25 mEq/L 21-33 N ANION GAP (test code = GAP) 13 0-20 N GLUCOSE (test code = GLU) 221 mg/dL 70-110 H BLOOD UREA NITROGEN (test code = BUN) 10 mg/dL 7-18 N GLOMERULAR FILTRATION RATE (test code = GFR) 55.0 95-105 L Units of measure = ml/min/1.73 m2 CREATININE (test code = CREAT) 1.1 mg/dL 0.6-1.3 N CALCIUM (test code = CA) 8.0 mg/dL 8.0-10.5 N CBC W/AUTO [id number] 12:48:00* Test Item Value Reference Range Interpretation Comments WHITE BLOOD CELL (test code = WBC) 8.35 x10 3/uL 4.5-11.0 N RED BLOOD CELL (test code = RBC) 3.49 x10 6/uL 3.54-5.02 L HEMOGLOBIN (test code = HGB) 7.0 g/dL 11.0-15.0 L HEMATOCRIT (test code = HCT) 24.6 % 33.0-45.0 L MEAN CELL VOLUME (test code = MCV) 70.5 fL 81.0-99.0 L MEAN CELL HGB (test code = MCH) 20.1 pg 27.0-33.0 L MEAN CELL HGB CONCETRATION (test code = MCHC) 28.5 g/dL 33.0-37. 0 L RED CELL DISTRIBUTION WIDTH CV (test code = RDW) 18.2 % 11.5- 14.5 H RED CELL DISTRIBUTION WIDTH SD (test code = RDW-SD) 46.1 fL 37 .0-54.0 N PLATELET COUNT (test code = PLT) 500 x10 3/uL 150-400 H MEAN PLATELET VOLUME (test code = MPV) 10.3 fL 7.0-9.0 H NEUTROPHIL % (test code = NT%) 68.2 % 56.0-77.0 N IMMATURE GRANULOCYTE % (test code = IG%) 0.4 % 0.0-2.0 N LYMPHOCYTE % (test code = LY%) 22.4 % 14.0-32.0 N MONOCYTE % (test code = MO%) 5.4 % 4.8-9.0 N EOSINOPHIL % (test code = EO%) 2.4 % 0.3-3.7 N BASOPHIL % (test code = BA%) 1.2 % 0.0-2.0 N NUCLEATED RBC % (test code = NRBC%) 0.0 % 0-0 N NEUTROPHIL # (test code = NT#) 5.70 x10 3/uL 2.0-7.6 N IMMATURE GRANULOCYTE # (test code = IG#) 0.03 x10 3/uL 0.00-0.03 N LYMPHOCYTE # (test code = LY#) 1.87 x10 3/uL 1.0-3.8 N MONOCYTE # (test code = MO#) 0.45 x10 3/uL 0.1-0.8 N EOSINOPHIL # (test code = EO#) 0.20 x10 3/uL 0.0-0.2 N BASOPHIL # (test code = BA#) 0.10 x10 3/uL 0.0-0.2 N NUCLEATED RBC # (test code = NRBC#) 0.00 x10 3/uL 0.0-0.1 N MANUAL DIFF REQUIRED (test code = MDIFF) NO RBC [id number] 12:48:00* Test Item Value Reference Range Interpretation Comments ANISOCYTOSIS (test code = ANISO) CBC W/AUTO [id number] 12:48:00* Test Item Value Reference Range Interpretation Comments WHITE BLOOD CELL (test code = WBC) 8.35 x10 3/uL 4.5-11.0 N RED BLOOD CELL (test code = RBC) 3.49 x10 6/uL 3.54-5.02 L HEMOGLOBIN (test code = HGB) 7.0 g/dL 11.0-15.0 L HEMATOCRIT (test code = HCT) 24.6 % 33.0-45.0 L MEAN CELL VOLUME (test code = MCV) 70.5 fL 81.0-99.0 L MEAN CELL HGB (test code = MCH) 20.1 pg 27.0-33.0 L MEAN CELL HGB CONCETRATION (test code = MCHC) 28.5 g/dL 33.0-37. 0 L RED CELL DISTRIBUTION WIDTH CV (test code = RDW) 18.2 % 11.5- 14.5 H RED CELL DISTRIBUTION WIDTH SD (test code = RDW-SD) 46.1 fL 37 .0-54.0 N PLATELET COUNT (test code = PLT) 500 x10 3/uL 150-400 H MEAN PLATELET VOLUME (test code = MPV) 10.3 fL 7.0-9.0 H NEUTROPHIL % (test code = NT%) 68.2 % 56.0-77.0 N IMMATURE GRANULOCYTE % (test code = IG%) 0.4 % 0.0-2.0 N LYMPHOCYTE % (test code = LY%) 22.4 % 14.0-32.0 N MONOCYTE % (test code = MO%) 5.4 % 4.8-9.0 N EOSINOPHIL % (test code = EO%) 2.4 % 0.3-3.7 N BASOPHIL % (test code = BA%) 1.2 % 0.0-2.0 N NUCLEATED RBC % (test code = NRBC%) 0.0 % 0-0 N NEUTROPHIL # (test code = NT#) 5.70 x10 3/uL 2.0-7.6 N IMMATURE GRANULOCYTE # (test code = IG#) 0.03 x10 3/uL 0.00-0.03 N LYMPHOCYTE # (test code = LY#) 1.87 x10 3/uL 1.0-3.8 N MONOCYTE # (test code = MO#) 0.45 x10 3/uL 0.1-0.8 N EOSINOPHIL # (test code = EO#) 0.20 x10 3/uL 0.0-0.2 N BASOPHIL # (test code = BA#) 0.10 x10 3/uL 0.0-0.2 N NUCLEATED RBC # (test code = NRBC#) 0.00 x10 3/uL 0.0-0.1 N MANUAL DIFF REQUIRED (test code = MDIFF) NO RBC [id number] 12:48:00* Test Item Value Reference Range Interpretation Comments ANISOCYTOSIS (test code = ANISO) - XR CHEST 1 [id number] 12:21:00 FAX: Héctor Bagley DO [phone] [place]: St: REG FAX: Rashida Fields DO [phone] Name: CECILIO TOURE [facility] : 1975 Age/S: 42/F [address] [place] [address] Unit #: [id number] Loc: [address] [address] Phys: Héctor Goodman DO Acct: [id number] Dis Date: Status: REG ER PHONE #: [phone] Exam Date: 10/15/2018 1220 FAX #: [phone] Reason: Chest Pain EXAMS: CPT CODE: [id number] XR CHEST 1 V 10328 Portable chest performed October 15, 2018 1204 hours. COMPARISON: January 15, 2018. CLINICAL HISTORY: Chest pain. DISCUSSION: Single portable chest is submitted. Right subclavian Port-A-Cath is present with the tip over the cavoatrial junction. Sternal wires are seen. Surgical clips are seen overlying the left hilar region. Low inspiratory volume. Given the inspiration, the lungs appear clear. Heart size appears normal. No acute osseous abnormalities. IMPRESSION: No acute cardiopulmonary findings. Electron ically Signed by Gimler Yepez on 10/15/2018 at 1221 Reported and signed by: Julienne Yepez M.D. CC: Héctor Goodman DO; Rashida Everett DO Technologist: RT Jorge(Pily) Trnscrd Date/Time/By: 10/15/2018 (1221) : By: armond MCKEONNMG Orig Print D/T: S: 10/15/2018 (6446) PAGE 1 Signed Report TROPONIN-I [id number] 11:54:00* Test Item Value Reference Range Interpretation Comments TROPONIN-I RAPID (test code = TROPIRAP) 0.01 ng/mL 0.00-0.08 N Performed by certified salt machine operator at [facility] Negative: <= 0.08 Positive: >= 0.09An elevated troponin value alone is not sufficient todiagnose a myocardial infarction. Rather, the patient sclinical presentation (history, physical exam) and ECGshould be used in conjunction with troponin in thediagnostic evaluation of suspected myocardial infarction. Aserial sampling protocol is recommended to facilitate the identification of temporal changes in troponin levels characteristic of CT. URINE AND [id number] 16:06:00Negative (06/25/18 10:06 AM)[facility] URINE AND [id number] 16:06:00Negative (06/25/18 10:06 AM)[facility] URINE AND SGVLN0292-84-00 16:06:004[facility] YRPXE3158-92-22 16:06:003[facility] ZKITB1227-00-03 16:06:00Negative *NA*(06/25/18 10:06 AM)[facility] GURWC6821-84-28 16:06:00Large *ABN*(06/25/18 10:06 AM)[facility] [id number] 16:06:00Negative (06/25/18 10:06 AM)[facility] THTQR1660-14-96 16:06:00Negative *NA*(06/25/18 10:06 AM)[facility] NEOCJ2475-00-71 16:06:00Negative *NA*(06/25/18 10:06 AM)[facility] CZGRT3834-53-16 16:06:00Slight *ABN*(06/25/18 10:06 AM)[facility] IXCUQ0680-01-15 16:06:00* Test Item Value Reference Range Interpretation Comments UA Spec Grav (test code = UA Spec Grav) 1.009 1 [facility] MJZQL0734-11-92 16:06:00* Test Item Value Reference Range Interpretation Comments UA pH (test code = UA pH) 6.0 1 5.0-8.0 [facility]ARD[facility]AC ULXJXSK7746-28-48 15:16:0056[facility] ZTOZFLI6694-04-16 15:16:00<0.02[facility]annCARD[facility]AC WUSBQTP8594-06-93 15:16:20992Tlmdtllw HermannCHEM DQWFA3588-64-49 15:16:0076[facility]annCHEM RRLUM5580-34-75 15:16:008.3[facility]annCHEM HFCWB8172-43-45 15:16:003.7 [facility]annCHE[facility] AZMFR5524-00-56 15:16:007.9[facility]annCHEM PANEL 2018-06-25 15:16:000.6[facility]annCHEM CFSVF3148-83-55 15:16:07979Otkxvkgu HermannCHEM YROUX9635-62-57 15:16:0020[facility]annCHE[facility] TUQYB3491-14-34 15:16:0022[facility]annCHEM TYGHI3974-14-15 15:16:003.8[facility]annCHEM SBJLW9460-30-41 15:16:0027[facility]annCHEM FVTIS9630-42-67 15:16:13337 [facility]annCHE[facility] SLWIM3828-81-87 15:16:0013[facility]annCHEM PANEL 2018-06-25 15:16:000.94[facility]annCHEM XGLNG5877-33-95 15:16:85511Vocyhckj [facility]annCHEM ZFTBC1199-34-80 15:16:06913Grawwkqm [facility]annCHE[facility] DRZXC0696-80-44 15:16:00* Test Item Value Reference Range Interpretation Comments A/G Ratio (test code = A/G Ratio) 0.9 1 0.7-1.6 [facility]CHE[facility] ZBLQV8793-91-40 15:16:004.2[facility]annCHEM PANEL 2018-06-25 15:16:00* Test Item Value Reference Range Interpretation Comments B/C Ratio (test code = B/C Ratio) 14 1 6-25 [facility]annCHE[facility] OKBAQ9995-14-05 15:16:0014.8[facility] HermannENDOCRINOLOGY 2018-06-25 15:16:00Negative *NA*(06/25/18 9:16 AM)[facility]annHEMATOLOGY 2018-06-25 15:16:002+ *ABN*(06/25/18 9:16 AM)[facility] HkirsvpJSBLWGEPCG1705-90-88 15:16:0072.9[facility] AlrhiizPCCGJSIPNQ6664-97-15 15:16:0021.0[facility] Jp QOROSCWPVB5413-79-93 15:16:003.6[facility] FiphxbiQPZYLFLSGP6871-19-83 15:16:000.8 [facility] QydpwnoUSWMFGLQLY0627-67-07 15:16:001.7[facility]annHEMATOLOGY 2018-06-25 15:16:007.0[facility] DhagpqpTQIZVCJYUU8296-71-17 15:16:002.0[facility] WkslxyqRAMUOOXQQN3024-68-44 15:16:000.1[facility] JiyjheoXABKCVSCYL7330-22-56 15:16:000.3[facility] ZfndnjmKLORQLEHPJ0749-23-06 15:16:000.2[facility] UAXUCZSVTV8549-85-90 15:16:00* Test Item Value Reference Range Interpretation Comments PT (test code = PT) 13.6 s 12.0-14.7 [facility] DvyftagTSCOHTPYPI3952-18-28 15:16:00* Test Item Value Reference Range Interpretation Comments INR (test code = INR) 1.06 1 0.85-1.17 [facility] IkarugxZSQIIBZWZY7403-95-24 15:16:0022.4[facility]annHEMATOLOGY 2018-06-25 15:16:35121Mkgxynlq NuruiqdZBNIGEOYSV7068-07-86 15:16:009.4[facility] WhgjqjuXTTLQQUAQJ0514-04-36 15:16:008.4[facility] TqxysneVCOQBXJVLD4791-31-97 15:16:0030.2[facility] YnjwexeJWVNCGATBD0941-22-40 15:16:00* Test Item Value Reference Range Interpretation Comments MCH (test code = MCH) 21.3 pg 27.0-31.0 [facility] ZtompmeLJGMRJYLND4080-92-24 15:16:0070.5[facility]annHEMATOLOGY 2018-06-25 15:16:0031.1[facility] WufuabjZFEXUKJPGR3055-15-82 15:16:009.7[facility] TjgygnuPPSCIJXDNF5264-64-77 15:16:004.41[facility]annCARDIAC ENZYMES 2018-03-13 11:32:00<0.02[facility]annCHEM ZEJDA4948-05-10 11:32:007.7[facility]annCHEM FKJQY4003-32-94 11:32:0082[facility]annCHEM GXWNS3679-75-15 11:32:99897Uwdembyp HermannCHEM WADPE8420-45-83 11:32:85263Wiqxtwop [facility]annCHEM IFTDQ1354-67-22 11:32:003.9[facility]annCHEM BKWVM5082-18-69 11:32:15385 [facility]annCHE[facility] AYZXX2096-47-36 11:32:000.88[facility]annCHEM PANEL 2018-03-13 11:32:0023[facility]annCHEM EVUUW6299-67-27 11:32:009[facility]annCHEM MHVQJ1646-95-69 11:32:0015.9[facility] JfzqhzvFRVXDKGEON9759-28-17 11:32:00* Test Item Value Reference Range Interpretation Comments MCH (test code = MCH) 29.3 pg 27.0-31.0 [facility] HuibuuxZNMELULECT5461-03-43 11:32:003.33[facility]annHEMATOLOGY 2018-03-13 11:32:009.8[facility] VbcuckqDGFAXQESWW0796-89-85 11:32:009.4[facility] LjewxyqAQCMTOGAPQ0606-91-06 11:32:0087.5[facility] QqydwhlLQGZMLDVFN4931-28-94 11:32:0033.5[facility] HuclahhPCLSAFBQWX0724-41-08 11:32:0029.2[facility] Jp UJIAOQRPRX7048-90-65 11:32:12962Luwxwevt MydeyecXDUOPDRSTE7953-21-74 11:32:008.1 [facility] UfxsnnpWOOIIWRHFS0329-78-37 11:32:0025.4[facility]annHEMATOLOGY 2018-03-13 11:32:000.4[facility] ArdsgbtDHTAHSMATJ4519-93-46 11:32:000.1[facility] ThvhxozXGAOCQFHQK3937-72-32 11:32:000.4[facility] EpruzrpQWHKHAGPFM3516-02-95 11:32:003.7[facility] PuuazkoCAXFERFYGU2367-96-57 11:32:000.6[facility] FBMDZNKZZF1931-19-74 11:32:004.2[facility] JdgniqoATZBUIQLUU5192-88-92 11:32:00 75.3[facility] SkqhqbkZQQHZDOCKA1867-94-23 11:32:007.1[facility]annHEMATOLOGY 2018-03-13 11:32:001.5[facility] GpeyhspDQKHAWCSZE5008-16-02 11:32:0016.2[facility] IganqsfGSBHVC7276-70-46 11:32:89223Zsqdbagk TpuzawnJTIWGP0647-29-09 11:32:00* Test Item Value Reference Range Interpretation Comments VLDL (test code = VLDL) 25 1 [facility] TyfiuwaEEOAFY4315-95-31 11:32:0091[facility] ActjescISYZTA1601-29-59 11:32:0040[facility] PnlipopTSAXPF9592-39-01 11:32:82798Uqpzlkkf HermannLIPIDS 2018-03-13 11:32:00* Test Item Value Reference Range Interpretation Comments CHD Risk (test code = CHD Risk) 3.90 1 3.90-5.80 [facility]annCARDIAC TOXNWHI9463-28-68 23:16:00<0.02[facility]annBL[facility]OD BANK FGTGPPJ3690-47-87 22:38:45Product available 3(03/12/18 5:38 PM)[facility] MGNWYYT8910-33-56 19:16:00Negative (03/12/18 2:16 PM)[facility]annCARDIAC GFWKVEC7829-76-96 17:37:59960Vimdhhau HermannCARDIAC ENZYMES 2018-03-12 17:37:0087[facility]annCARD[facility]AC FBGEBID7391-62-47 17:37:00<0.02 [facility]annCHEM VDFDS5543-61-34 17:37:0084[facility]annCHEM PANEL 2018-03-12 17:37:41368Qcehsomy HermannCHEM QLYXV0432-13-64 17:37:0022[facility]annCHEM BPEFA9742-96-83 17:37:0022[facility]annCHEM QMKPA7416-80-86 17:37:007.2[facility] HermannCHEM UIYGV8447-34-80 17:37:003.4[facility]annCHEM EQSVU2520-39-92 17:37:000.87[facility] HermannCHEM AKGMN1174-68-42 17:37:000.3 [facility]annCHEM STGLW1921-18-11 17:37:44415Zghcrdsk HermannCHEM PANEL 2018-03-12 17:37:0026[facility] HermannCHEM JERPQ8185-02-38 17:37:004.2[facility] HermannCHEM STERN5942-37-29 17:37:007.6[facility] HermannCHEM SBIHE6801-52-54 17:37:49679Vlsotuxo HermannCHEM VQHSX0432-89-20 17:37:93937Xmneigkz HermannCHEM YRBHS5666-45-33 17:37:009[facility]annCHEM UMOKQ8013-71-75 17:37:003.8 [facility]annCHEM AUWCS1821-48-93 17:37:00* Test Item Value Reference Range Interpretation Comments A/G Ratio (test code = A/G Ratio) 0.9 1 0.7-1.6 [facility]annCHEM MPVOI3813-07-62 17:37:00* Test Item Value Reference Range Interpretation Comments B/C Ratio (test code = B/C Ratio) 10 1 6-25 [facility]annCHEM CHYQH9245-39-23 17:37:0014.2[facility] HermannENDOCRINOLOGY 2018-03-12 17:37:00Negative *NA*(03/12/18 12:37 PM)[facility]annHEMATOLOGY 2018-03-12 17:37:000.1[facility] AphkackWLPNLVRAMO7097-36-78 17:37:001+ (03/12/18 12:37 PM)[facility] EvfdagxDGHNYJSDDB1748-17-28 17:37:001+ *ABN*(03/12/18 12:37 PM) [facility] FmgxmohFIAGIYOCOH8970-56-99 17:37:001+ *ABN*(03/12/18 12:37 PM)[facility] BiaivgtYAHPWRCKXY1218-38-43 17:37:000.5[facility] IhyssxmQAMDMIYQJP3618-20-17 17:37:000.2[facility] JqyeuybAKOFFDSHMS3353-19-04 17:37:006.0[facility] Jp CNFYHBPNAZ4228-34-04 17:37:001.5[facility] XanlcoeRUXZQLGSKL0222-73-33 17:37:003.0 [facility] MzeuyizJOUHCLJMUL4329-97-37 17:37:000.9[facility]annHEMATOLOGY 2018-03-12 17:37:005.6[facility] WlawgneHMOLSUNWDZ4322-26-16 17:37:0018.4[facility] ByyimgzABHGWXQXOD0349-11-25 17:37:00Normal (03/12/18 12:37 PM)[facility] CTBCABNPEI1067-46-41 17:37:0072.1[facility] XiiiqegFHVACBNTXV5153-43-19 17:37:00 488[facility] FuqfyuyEYGXOHHEHA0981-70-81 17:37:0029.1[facility]annHEMATOLOGY 2018-03-12 17:37:0032.7[facility] PhienbaRVJNMTXJRT8283-69-86 17:37:008.5[facility] AvzudlmMJSFGGXASL2104-70-00 17:37:00* Test Item Value Reference Range Interpretation Comments MCH (test code = MCH) 28.8 pg 27.0-31.0 [facility] WbnzufkQHGCATIKFO5601-90-18 17:37:0088.3[facility]annHEMATOLOGY 2018-03-12 17:37:0025.1[facility] XaoedmbYDHSGDTOMG4847-44-16 17:37:008.2[facility] IpjuivsGDTONXIGJI1030-61-93 17:37:002.85[facility] UbxqjxmQIISYSTZQN8228-43-22 17:37:008.3[facility] HwsoxhtKXHYXPJISY5995-31-51 17:37:00* Test Item Value Reference Range Interpretation Comments PTT (test code = PTT) 30.7 s 22.9-35.8 [facility] MeggvozEKWAJKKISA0756-31-01 17:37:00* Test Item Value Reference Range Interpretation Comments PT (test code = PT) 14.5 s 12.0-14.7 [facility] BjjvfoeYFCHMPVMTJ3329-55-38 17:37:00* Test Item Value Reference Range Interpretation Comments INR (test code = INR) 1.13 1 0.85-1.17 [facility] WNMFR3047-74-39 19:19:009[facility] AND ACBDU2418-98-84 19:19:00Large *ABN*(03/06/17 2:19 PM)[facility] DCYUQ5529-15-48 19:19:004[facility] AND WCJLR2032-23-79 19:19:00 Negative (03/06/17 2:19 PM)[facility] RNZTT4357-14-63 19:19:00 Negative (03/06/17 2:19 PM)[facility] DPJMD8885-80-67 19:19:00 1.024[facility] AND YZRXH4538-25-00 19:19:006.0[facility] AND BAQPN1892-40-55 19:19:00Slight *ABN*(03/06/17 2:19 PM)[facility] CYFBE4666-75-49 19:19:00Negative *NA*(03/06/17 2:19 PM)[facility] CARDIAC GVRJPRQ9779-03-85 18:07:001.0[facility]annCARDIAC SUGMRPC4248-21-26 18:07:0016[facility]annCARDIAC SRUALZC8258-53-48 18:07:95974Qbtrygba Jp CARDIAC HLAOUKZ5278-08-17 18:07:001.1[facility]annCARDIAC VMUMUHZ5972-85-08 18:07:00<0.02[facility]annCHEM XQTTN7015-10-63 18:07:43781Cmlntbym [facility] CHEM GSEPL0867-48-14 18:07:007.3[facility] HermannCHEM CNJOI5875-11-39 18:07:008.0 [facility]annCHEM CPUUL4066-70-14 18:07:31421Wgbvsskz HermannCHEM PANEL 2017-03-06 18:07:000.87[facility] HermannCHEM WQSHT7626-48-26 18:07:0011[facility] HermannCHEM YOHYU4204-13-29 18:07:0084[facility]annCHEM IPQON1603-78-76 18:07:0014.9[facility] HermannCHEM QFZMK0896-81-75 18:07:0013[facility]annCHEM PPRUQ8363-69-85 18:07:003.9[facility] HermannCHEM RXSTS3672-65-58 18:07:000.9 [facility]annCHEM BNLFI3460-67-09 18:07:0025[facility] HermannCHEM PANEL 2017-03-06 18:07:31449Orvlyinl HermannCHEM UXEHO6907-80-04 18:07:000.3[facility] HermannCHEM HOUFP5106-37-98 18:07:0028[facility] HermannCHEM ZDSMR1861-64-35 18:07:003.4[facility] HermannCHEM QEKKI5304-83-29 18:07:47912Eujwhpdh HermannCHEM XRVVA5520-08-16 18:07:003.9[facility] HermannCHEM WSXST6752-74-17 18:07:0099 [facility]annCHEM ALCUX3113-94-72 18:07:0025[facility] HermannENDOCRINOLOGY 2017-03-06 18:07:00Negative *NA*(03/06/17 1:07 PM)[facility] HermannHEMATOLOGY 2017-03-06 18:07:002+ *ABN*(03/06/17 1:07 PM)[facility] QoleuzkLXZWCCTTFJ6812-18-30 18:07:000.1[facility] TzviescIPWMMXPDAI8227-63-60 18:07:007.1[facility] Jp DFEXJTNQFY2134-13-76 18:07:001.1[facility] QsxdqgmDTUHXELXPJ4806-20-62 18:07:000.6 [facility] HlvezxcRJYTCVMKOM9211-05-98 18:07:002.4[facility]annHEMATOLOGY 2017-03-06 18:07:000.5[facility] NeasmjyEIADDCGAGQ3771-43-75 18:07:0066.2[facility] BzsaygyXRRXAFISTB1925-35-33 18:07:004.6[facility] JuvdiwcQUUJTMHFXE7342-89-21 18:07:005.8[facility] CfucqvbIJTRCFUGQR7783-41-50 18:07:0022.3[facility] [place] OQKZJLXXKQ2620-36-19 18:07:0017.6[facility] VpjgevoDRHOYAULHH7306-29-37 18:07:00 567[facility] AhhaydpTFATOIJFGT8747-80-55 18:07:008.0[facility]annHEMATOLOGY 2017-03-06 18:07:0069.7[facility] XarmebyBRVMQJLHIS3542-49-00 18:07:00* Test Item Value Reference Range Interpretation Comments MCH (test code = MCH) 21.3 pg 27.0-31.0 [facility] UfnqfkpKXCBQNVYIS5530-40-95 18:07:0030.5[facility]annHEMATOLOGY 2017-03-06 18:07:0026.3[facility] WgilldxJWRTOJALMC8161-87-22 18:07:003.77[facility] AwjnsdyNHPFZTDULM6860-87-74 18:07:0010.7[facility] SxnlveuVJVTVSZALT7505-23-26 18:07:008.4[facility]annURINE QCKCTTB0966-19-52 15:27:00* Test Item Value Reference Range Interpretation Comments CULTURE (BEAKER) (test code = 1095) A 30-39,000 col/mL Shantell albicans >100,000 col/ml skin floraBASIC METABOLIC [id number] 21:57:00* Test Item Value Reference Range Interpretation Comments SODIUM (BEAKER) (test code = 381) 135 meq/L 135-148 POTASSIUM (BEAKER) (test code = 379) 4.6 meq/L 3.6-5.5 CHLORIDE (BEAKER) (test code = 382) 102 meq/L 98-106 CO2 (BEAKER) (test code = 355) 24 meq/L 24-32 BLOOD UREA NITROGEN (BEAKER) (test code = 354) 11 mg/dL 10-26 CREATININE (BEAKER) (test code = 358) 0.66 mg/dL 0.50-1.20 GLUCOSE RANDOM (BEAKER) (test code = 652) 279 mg/dL 70-110 H CALCIUM (BEAKER) (test code = 697) 8.0 mg/dL 8.5-10.5 L EGFR (BEAKER) (test code = 1092) mL/min/1.73 sq m INSUFFICIENT CLINICAL DATA TO CALCULATE ESTIMATED GFR. RAD, CHEST, 2 [id number] 21:21:00Reason for exam:->DIZZINESSReason for exam:->BLURRED VISIONIs the [...] evidence of an acute cardiopulmonary process. Signed: Dimitry Coppola MDReport Verified Date/Time: 02/25/2017 21:21:02 Reading Location: [address] Reading Room D TROPONIN [id number] 20:34:00* Test Item Value Reference Range Interpretation Comments RAPID TROPONIN I (BEAKER) (test code = 1483) < ng/mL <0.05 URINALYSIS W/ [id number] 20:32:00* Test Item Value Reference Range Interpretation Comments COLOR (BEAKER) (test code = 470) Yellow CLARITY (BEAKER) (test code = 469) Cloudy SPECIFIC GRAVITY UA (BEAKER) (test code = 468) 1.010 1.001-1 .035 PH UA (BEAKER) (test code = 467) 6.0 5.0-8.0 PROTEIN UA (BEAKER) (test code = 464) Negative Negative GLUCOSE UA (BEAKER) (test code = 365) 500 mg/dL Negative A KETONES UA (BEAKER) (test code = 371) Trace Negative A BILIRUBIN UA (BEAKER) (test code = 462) Negative Negative BLOOD UA (BEAKER) (test code = 461) Trace Negative A NITRITE UA (BEAKER) (test code = 465) Negative Negative LEUKOCYTE ESTERASE UA (BEAKER) (test code = 466) Small Negat juan A UROBILINOGEN UA (BEAKER) (test code = 463) 0.2 mg/dL 0.2-1.0 BACTERIA (BEAKER) (test code = 517) Moderate YEAST (BEAKER) (test code = 1585) Few RBC UA-MANUAL (BEAKER) (test code = 1659) <5 /HPF WBC UA-MANUAL (BEAKER) (test code = 1661) 10-20 /HPF SQUAMOUS EPITHELIAL MANUAL (BEAKER) (test code = 1663) 20-50 /HPF SOURCE(BEAKER) (test code = 2795) CBC W/PLT COUNT & AUTO [id number] 20:25:00* Test Item Value Reference Range Interpretation Comments WHITE BLOOD CELL COUNT (BEAKER) (test code = 775) 11.9 10e3/ L 4.0- 10.0 H RED BLOOD CELL COUNT (BEAKER) (test code = 761) 4.25 10e6/ L 4.00-5 .00 HEMOGLOBIN (BEAKER) (test code = 410) 9.0 g/dL 12.0-15.0 L HEMATOCRIT (BEAKER) (test code = 411) 30.5 % 36.0-45.0 L MEAN CORPUSCULAR VOLUME (BEAKER) (test code = 753) 71.9 fL 82. 0-99.0 L MEAN CORPUSCULAR HEMOGLOBIN (BEAKER) (test code = 751) 21.3 pg 27.0-33.0 L MEAN CORPUSCULAR HEMOGLOBIN CONC (BEAKER) (test code = 752) 29.6 g/dL 32.0-36.0 L RED CELL DISTRIBUTION WIDTH (BEAKER) (test code = 412) 15.2 % 10.3-14.2 H PLATELET COUNT (BEAKER) (test code = 756) 519 10e3/ L 150-430 H Occasional LARGE PLATELETS seen on slide review. MEAN PLATELET VOLUME (BEAKER) (test code = 754) 8.5 fL 6.5-10 .5 NEUTROPHILS RELATIVE PERCENT (BEAKER) (test code = 429) 64 % LYMPHOCYTES RELATIVE PERCENT (BEAKER) (test code = 430) 26 % MONOCYTES RELATIVE PERCENT (BEAKER) (test code = 431) 6 % EOSINOPHILS RELATIVE PERCENT (BEAKER) (test code = 432) 4 % BASOPHILS RELATIVE PERCENT (BEAKER) (test code = 437) 1 % NEUTROPHILS ABSOLUTE COUNT (BEAKER) (test code = 670) 7.59 10e3/ L 1.80-8.00 LYMPHOCYTES ABSOLUTE COUNT (BEAKER) (test code = 414) 3.15 10e3/ L 1.48-4.50 MONOCYTES ABSOLUTE COUNT (BEAKER) (test code = 415) 0.67 10e3/ L 0. 00-1.30 EOSINOPHILS ABSOLUTE COUNT (BEAKER) (test code = 416) 0.45 10e3/ L 0.00-0.50 BASOPHILS ABSOLUTE COUNT (BEAKER) (test code = 417) 0.06 10e3/ L 0. 00-0.20 SCREEN, [id number] 20:18:00* Test Item Value Reference Range Interpretation Comments TEST URINE (BEAKER) (test code = 583) Negative BASIC METABOLIC [id number] 20:10:00* Test Item Value Reference Range Interpretation Comments SODIUM (BEAKER) (test code = 381) 134 meq/L 135-148 L POTASSIUM (BEAKER) (test code = 379) 4.3 meq/L 3.6-5.5 CHLORIDE (BEAKER) (test code = 382) 101 meq/L 98-106 CO2 (BEAKER) (test code = 355) 24 meq/L 24-32 BLOOD UREA NITROGEN (BEAKER) (test code = 354) 12 mg/dL 10-26 CREATININE (BEAKER) (test code = 358) 0.74 mg/dL 0.50-1.20 GLUCOSE RANDOM (BEAKER) (test code = 652) 424 mg/dL 70-110 HH CALCIUM (BEAKER) (test code = 697) 8.4 mg/dL 8.5-10.5 L EGFR (BEAKER) (test code = 1092) mL/min/1.73 sq m INSUFFICIENT CLINICAL DATA TO CALCULATE ESTIMATED GFR. KETONE, [id number] 20:07:00* Test Item Value Reference Range Interpretation Comments KETONES, BLOOD (BEAKER) (test code = 1103) 0.3 mmol/L <0.4 POCT-GLUCOSE [id number] 18:48:00* Test Item Value Reference Range Interpretation Comments POC-GLUCOSE METER (BEAKER) (test code = 1538) 421 mg/dL 70-110 HH Notified JUAN WILSON/TESTED AT [facility] [address] [facility] [address] [id number] 11:53:00* Test Item Value Reference Range Interpretation Comments D-DIMER QUANTITATIVE (BEAKER) (test code = 671) 0.22 MG/L FEU <0.50 REGARDING D-DIMER RESULTS: Results of this D-Dimer test should always be interpr eted in conjunction with the patient's medical history, clinical presentation an d other findings. DVT clinical diagnosis should not be based on the results of I [place] D-Dimer alone.B-TYPE NATRIURETIC FACTOR (BNP)2017-01-16 11:48:00* Test Item Value Reference Range Interpretation Comments B-TYPE NATRIURETIC PEPTIDE (BEAKER) (test code = 700) 38 pg/mL 0-100 RAPID TROPONIN [id number] 11:46:00* Test Item Value Reference Range Interpretation Comments RAPID TROPONIN I (BEAKER) (test code = 1483) < ng/mL <0.05 URINALYSIS W/ REFLEX URINE [id number] 11:43:00* Test Item Value Reference Range Interpretation Comments COLOR (BEAKER) (test code = 470) Yellow CLARITY (BEAKER) (test code = 469) Cloudy SPECIFIC GRAVITY UA (BEAKER) (test code = 468) 1.020 1.001-1 .035 PH UA (BEAKER) (test code = 467) 7.5 5.0-8.0 PROTEIN UA (BEAKER) (test code = 464) 30 mg/dL Negative A GLUCOSE UA (BEAKER) (test code = 365) Negative Negative KETONES UA (BEAKER) (test code = 371) 15 mg/dL Negative A BILIRUBIN UA (BEAKER) (test code = 462) Negative Negative BLOOD UA (BEAKER) (test code = 461) Negative Negative NITRITE UA (BEAKER) (test code = 465) Negative Negative LEUKOCYTE ESTERASE UA (BEAKER) (test code = 466) Negative Negat juan UROBILINOGEN UA (BEAKER) (test code = 463) 0.2 mg/dL 0.2-1.0 BACTERIA (BEAKER) (test code = 517) Moderate RBC UA-MANUAL (BEAKER) (test code = 1659) <5 /HPF WBC UA-MANUAL (BEAKER) (test code = 1661) 5-10 /HPF SQUAMOUS EPITHELIAL MANUAL (BEAKER) (test code = 1663) 50-100 /HPF Clue cells SOURCE(BEAKER) (test code = 2795) COMPREHENSIVE METABOLIC [id number] 11:42:00* Test Item Value Reference Range Interpretation Comments TOTAL PROTEIN (BEAKER) (test code = 770) 7.5 gm/dL 6.0-8.5 ALBUMIN (BEAKER) (test code = 1145) 4.1 g/dL 3.5-5.0 ALKALINE PHOSPHATASE (BEAKER) (test code = 346) 154 U/L 30-115 H BILIRUBIN TOTAL (BEAKER) (test code = 377) 0.4 mg/dL 0.1-1.2 SODIUM (BEAKER) (test code = 381) 139 meq/L 135-148 POTASSIUM (BEAKER) (test code = 379) 4.3 meq/L 3.6-5.5 CHLORIDE (BEAKER) (test code = 382) 98 meq/L 98-106 CO2 (BEAKER) (test code = 355) 26 meq/L 24-32 BLOOD UREA NITROGEN (BEAKER) (test code = 354) 6 mg/dL 10-26 L CREATININE (BEAKER) (test code = 358) 0.51 mg/dL 0.50-1.20 GLUCOSE RANDOM (BEAKER) (test code = 652) 256 mg/dL 70-110 H CALCIUM (BEAKER) (test code = 697) 8.6 mg/dL 8.5-10.5 AST (SGOT) (BEAKER) (test code = 353) 34 U/L 5-40 ALT (SGPT) (BEAKER) (test code = 347) 38 U/L 5-50 EGFR (BEAKER) (test code = 1092) mL/min/1.73 sq m INSUFFICIENT CLINICAL DATA TO CALCULATE ESTIMATED GFR. [id number] 11:41:00* Test Item Value Reference Range Interpretation Comments LIPASE (BEAKER) (test code = 749) 84 U/L 40-240 CBC W/PLT COUNT & AUTO [id number] 11:36:00* Test Item Value Reference Range Interpretation Comments WHITE BLOOD CELL COUNT (BEAKER) (test code = 775) 10.6 10e3/ L 4.0- 10.0 H RED BLOOD CELL COUNT (BEAKER) (test code = 761) 4.45 10e6/ L 4.00-5 .00 HEMOGLOBIN (BEAKER) (test code = 410) 10.2 g/dL 12.0-15.0 L HEMATOCRIT (BEAKER) (test code = 411) 33.5 % 36.0-45.0 L MEAN CORPUSCULAR VOLUME (BEAKER) (test code = 753) 75.3 fL 82. 0-99.0 L MEAN CORPUSCULAR HEMOGLOBIN (BEAKER) (test code = 751) 22.9 pg 27.0-33.0 L MEAN CORPUSCULAR HEMOGLOBIN CONC (BEAKER) (test code = 752) 30.4 g/dL 32.0-36.0 L RED CELL DISTRIBUTION WIDTH (BEAKER) (test code = 412) 14.6 % 10.3-14.2 H PLATELET COUNT (BEAKER) (test code = 756) 779 10e3/ L 150-430 H MEAN PLATELET VOLUME (BEAKER) (test code = 754) 7.6 fL 6.5-10 .5 NEUTROPHILS RELATIVE PERCENT (BEAKER) (test code = 429) 64 % LYMPHOCYTES RELATIVE PERCENT (BEAKER) (test code = 430) 28 % MONOCYTES RELATIVE PERCENT (BEAKER) (test code = 431) 5 % EOSINOPHILS RELATIVE PERCENT (BEAKER) (test code = 432) 2 % BASOPHILS RELATIVE PERCENT (BEAKER) (test code = 437) 1 % NEUTROPHILS ABSOLUTE COUNT (BEAKER) (test code = 670) 6.75 10e3/ L 1.80-8.00 LYMPHOCYTES ABSOLUTE COUNT (BEAKER) (test code = 414) 2.95 10e3/ L 1.48-4.50 MONOCYTES ABSOLUTE COUNT (BEAKER) (test code = 415) 0.55 10e3/ L 0. 00-1.30 EOSINOPHILS ABSOLUTE COUNT (BEAKER) (test code = 416) 0.23 10e3/ L 0.00-0.50 BASOPHILS ABSOLUTE COUNT (BEAKER) (test code = 417) 0.06 10e3/ L 0. 00-0.20 SCREEN, [id number] 11:35:00* Test Item Value Reference Range Interpretation Comments TEST URINE (BEAKER) (test code = 583) Negative URINE [id number] 09:32:00* Test Item Value Reference Range Interpretation Comments CULTURE (BEAKER) (test code = 1095) ESCHERICHIA COLI A >100,000 col/mL Escherichia coli Amikacin (test code = 1) S Ampicillin + Sulbactam (test code = 6) R Aztreonam (test code = 32) S Cefepime (test code = 51) S Cefoxitin (test code = 68) S Ceftazidime (test code = 27) S Ceftriaxone (test code = 52) S Ertapenem (test code = 38) S Gentamicin (test code = 18) S Levofloxacin (test code = 22) S Meropenem (test code = 34) S Nitrofurantoin (test code = 23) S Piperacillin + Tazobactam (test code = 29) S Tetracycline (test code = 2) S Tobramycin (test code = 25) S Trimethoprim + Sulfamethoxazole (test code = 47) R <10,000 col/mL skin floraOSMOLALITY, [id number] 01:36:00* Test Item Value Reference Range Interpretation Comments OSMOLALITY, SERUM (BEAKER) (test code = 615) 312 mOsm/kg 275-295 H POCT-GLUCOSE [id number] 01:16:00* Test Item Value Reference Range Interpretation Comments POC-GLUCOSE METER (EDY) (test code = 1538) 251 mg/dL 70-110 H TESTED AT [facility] [address] [facility] [address] POCT-GLUCOSE [id number] 00:29:00* Test Item Value Reference Range Interpretation Comments POC-GLUCOSE METER (BEAKER) (test code = 1538) 327 mg/dL 70-110 H Not[facility] [address] [facility] [address] URINALYSIS W/ [id number] 00:04:00* Test Item Value Reference Range Interpretation Comments COLOR (BEAKER) (test code = 470) [place] CLARITY (BEAKER) (test code = 469) Cloudy SPECIFIC GRAVITY UA (BEAKER) (test code = 468) 1.028 1.001-1 .035 Refractometer = 1.028 PH UA (BEAKER) (test code = 467) 5.0 5.0-8.0 PROTEIN UA (BEAKER) (test code = 464) 100 mg/dL Negative A GLUCOSE UA (BEAKER) (test code = 365) 500 mg/dL Negative A KETONES UA (BEAKER) (test code = 371) Trace Negative A BILIRUBIN UA (BEAKER) (test code = 462) Negative Negative BLOOD UA (BEAKER) (test code = 461) Small Negative A NITRITE UA (BEAKER) (test code = 465) Positive Negative A LEUKOCYTE ESTERASE UA (BEAKER) (test code = 466) Large Negat juan A UROBILINOGEN UA (BEAKER) (test code = 463) mg/dL 0.2-1.0 Interfering substances present in the urine; unable to confirm results. BACTERIA (BEAKER) (test code = 517) Moderate MUCUS (BEAKER) (test code = 1574) Rare RBC UA-MANUAL (BEAKER) (test code = 1659) <5 /HPF WBC UA-MANUAL (BEAKER) (test code = 1661) 50-100 /HPF SQUAMOUS EPITHELIAL MANUAL (BEAKER) (test code = 1663) 10-20 /HPF SOURCE(BEAKER) (test code = 2795) CBC W/PLT COUNT & AUTO [id number] 23:55:00* Test Item Value Reference Range Interpretation Comments WHITE BLOOD CELL COUNT (BEAKER) (test code = 775) 13.6 10e3/ L 4.0- 10.0 H RED BLOOD CELL COUNT (BEAKER) (test code = 761) 4.59 10e6/ L 4.00-5 .00 1+ HYPOCHROMIA; Few STOMATOCYTES seen on slide review. HEMOGLOBIN (BEAKER) (test code = 410) 10.8 g/dL 12.0-15.0 L HEMATOCRIT (BEAKER) (test code = 411) 35.2 % 36.0-45.0 L MEAN CORPUSCULAR VOLUME (BEAKER) (test code = 753) 76.7 fL 82. 0-99.0 L MEAN CORPUSCULAR HEMOGLOBIN (BEAKER) (test code = 751) 23.6 pg 27.0-33.0 L MEAN CORPUSCULAR HEMOGLOBIN CONC (BEAKER) (test code = 752) 30.7 g/dL 32.0-36.0 L RED CELL DISTRIBUTION WIDTH (BEAKER) (test code = 412) 15.4 % 10.3-14.2 H PLATELET COUNT (BEAKER) (test code = 756) 573 10e3/ L 150-430 H Occasional LARGE PLATELETS seen on slide review. MEAN PLATELET VOLUME (BEAKER) (test code = 754) 8.2 fL 6.5-10 .5 NEUTROPHILS RELATIVE PERCENT (BEAKER) (test code = 429) 67 % LYMPHOCYTES RELATIVE PERCENT (BEAKER) (test code = 430) 24 % MONOCYTES RELATIVE PERCENT (BEAKER) (test code = 431) 7 % EOSINOPHILS RELATIVE PERCENT (BEAKER) (test code = 432) 2 % BASOPHILS RELATIVE PERCENT (BEAKER) (test code = 437) 1 % NEUTROPHILS ABSOLUTE COUNT (BEAKER) (test code = 670) 9.05 10e3/ L 1.80-8.00 H LYMPHOCYTES ABSOLUTE COUNT (BEAKER) (test code = 414) 3.21 10e3/ L 1.48-4.50 MONOCYTES ABSOLUTE COUNT (BEAKER) (test code = 415) 0.98 10e3/ L 0. 00-1.30 EOSINOPHILS ABSOLUTE COUNT (BEAKER) (test code = 416) 0.27 10e3/ L 0.00-0.50 BASOPHILS ABSOLUTE COUNT (BEAKER) (test code = 417) 0.08 10e3/ L 0. 00-0.20 RAPID [id number] 23:47:00* Test Item Value Reference Range Interpretation Comments RAPID CKMB (BEAKER) (test code = 1482) < ng/mL 0.0-4.3 RAPID [id number] 23:47:00* Test Item Value Reference Range Interpretation Comments RAPID MYOGLOBIN (BEAKER) (test code = 2237) 52 ng/mL <107 RAPID TROPONIN [id number] 23:46:00* Test Item Value Reference Range Interpretation Comments RAPID TROPONIN I (BEAKER) (test code = 1483) < ng/mL <0.05 BASIC METABOLIC [id number] 23:35:00* Test Item Value Reference Range Interpretation Comments SODIUM (BEAKER) (test code = 381) 136 meq/L 135-148 POTASSIUM (BEAKER) (test code = 379) 4.2 meq/L 3.6-5.5 CHLORIDE (BEAKER) (test code = 382) 98 meq/L 98-106 CO2 (BEAKER) (test code = 355) 25 meq/L 24-32 BLOOD UREA NITROGEN (BEAKER) (test code = 354) 14 mg/dL 10-26 CREATININE (BEAKER) (test code = 358) 0.77 mg/dL 0.50-1.20 GLUCOSE RANDOM (BEAKER) (test code = 652) 429 mg/dL 70-110 HH CALCIUM (BEAKER) (test code = 697) 9.2 mg/dL 8.5-10.5 EGFR (BEAKER) (test code = 1092) 83 mL/min/1.73 sq m ESTIMATED GFR IS NOT ACCURATE CREATININE CLEARANCE IN PREDICTING GLOMERULAR FILTRATION RATE. ESTIMATED GFR IS NOT APPLICABLE FOR DIALYSIS PATIENTS. HEPATIC FUNCTION [id number] 23:32:00* Test Item Value Reference Range Interpretation Comments TOTAL PROTEIN (BEAKER) (test code = 770) 7.6 gm/dL 6.0-8.5 ALBUMIN (BEAKER) (test code = 1145) 4.2 g/dL 3.5-5.0 BILIRUBIN TOTAL (BEAKER) (test code = 377) 0.3 mg/dL 0.1-1.2 BILIRUBIN DIRECT (BEAKER) (test code = 706) 0.0 mg/dL 0.0-0.4 ALKALINE PHOSPHATASE (BEAKER) (test code = 346) 187 U/L 30-115 H AST (SGOT) (BEAKER) (test code = 353) 31 U/L 5-40 ALT (SGPT) (BEAKER) (test code = 347) 36 U/L 5-50 [id number] 23:30:00* Test Item Value Reference Range Interpretation Comments MAGNESIUM (BEAKER) (test code = 627) 1.3 mg/dL 1.5-3.0 L [id number] 23:30:00* Test Item Value Reference Range Interpretation Comments AMYLASE (BEAKER) (test code = 349) 71 U/L 30-110 [id number] 23:30:00* Test Item Value Reference Range Interpretation Comments LIPASE (BEAKER) (test code = 749) 127 U/L 40-240 KETONE, [id number] 23:24:00* Test Item Value Reference Range Interpretation Comments KETONES, BLOOD (BEAKER) (test code = 1103) 0.2 mmol/L <0.4 POCT-GLUCOSE [id number] 22:41:00* Test Item Value Reference Range Interpretation Comments POC-GLUCOSE METER (BEAKER) (test code = 1538) 462 mg/dL 70-110 HH Verify with Lab draw/TESTED AT [facility] [id number] [place] [address] BLOOD [id number] 11:00:00* Test Item Value Reference Range Interpretation Comments CULTURE (BEAKER) (test code = 1095) No growth in 5 days BLOOD [id number] 11:00:00* Test Item Value Reference Range Interpretation Comments CULTURE (BEAKER) (test code = 1095) No growth in 5 days BLOOD [id number] 11:45:00* Test Item Value Reference Range Interpretation Comments CULTURE (BEAKER) (test code = 1095) A From Aerobic And Anaerobic Bottles Same organism has been isolated from cultures(s) of the same body site and collection date. Repeat identification and susceptibility testing performed only after consultation with the clinical microbiology laboratory.Refer to previous culture ofEscherichia coli GRAM STAIN RESULT (BEAKER) (test code = 1123) From aer obic and anaerobic bottles: gram negative rods ESCHERICHIA COLI DETECTEDFirst line therapy: ceftriaxone meropenem if critically ill or history of an ESBL producing pathogenDe-escalate based on susceptibiliti esTested at [facility] Lab using the [employer] Film[employer] BCID Panel ([employer] | [place], [place]). This test has been FDA Approved and verifi cation was performed prior to clinical use. Reference Range: Not DetectedBLOOD [id number] 08:23:00* Test Item Value Reference Range Interpretation Comments CULTURE (BEAKER) (test code = 1095) ESCHERICHIA COLI A From Aerobic And Anaerobic Bottles Escherichia coli Amikacin (test code = 1) S Ampicillin + Sulbactam (test code = 6) S Aztreonam (test code = 32) S Cefazolin (test code = 9) Cefepime (test code = 51) S Cefoxitin (test code = 68) S Ceftazidime (test code = 27) S Ceftriaxone (test code = 52) S Ertapenem (test code = 38) S Gentamicin (test code = 18) S Levofloxacin (test code = 22) S Meropenem (test code = 34) S Nitrofurantoin (test code = 23) Piperacillin + Tazobactam (test code = 29) S Tetracycline (test code = 2) R Tigecycline (test code = 133) Tobramycin (test code = 25) S Trimethoprim + Sulfamethoxazole (test code = 47) R CULTURE (BEAKER) (test code = 1095) ESCHERICHIA COLI A From Aerobic And Anaerobic Bottles Escherichia coliof a second type Amikacin (test code = 1) S Ampicillin + Sulbactam (test code = 6) S Aztreonam (test code = 32) S Cefazolin (test code = 92) Cefepime (test code = 51) S Cefoxitin (test code = 68) S Ceftazidime (test code = 27) S Ceftriaxone (test code = 52) S Ertapenem (test code = 38) S Gentamicin (test code = 18) S Levofloxacin (test code = 22) S Meropenem (test code = 34) S Nitrofurantoin (test code = 232) Piperacillin + Tazobactam (test code = 29) S Tetracycline (test code = 2) R Tigecycline (test code = 1332) Tobramycin (test code = 25) S Trimethoprim + Sulfamethoxazole (test code = 47) R GRAM STAIN RESULT (BEAKER) (test code = 1123) From aer obic and anaerobic bottles: gram negative rods ESCHERICHIA COLI DETECTEDFirst line therapy: ceftriaxone meropenem if critically ill or history of an ESBL producing pathogenDe-escalate based on susceptibiliti esTested at [facility] Lab using the [employer] BC[employer] Panel ([employer] | [place], [place]). This test has been FDA Approved and verifi cation was performed prior to clinical use. Reference Range: Not Detected MISCELLANEOUS LAB [id number] 17:48:00* Test Item Value Reference Range Interpretation Comments SCAN RESULT (test code = 6192354) ESCHERICHIA COLI DETECTEDFirst line therapy: ceftriaxone meropenem if critically ill or history of an ESBL producing pathogenDe-escalate based on susceptibiliti esTested at [facility]biology Lab using the [employer] BCID Panel ([employer] | [place], [place]). This test has been FDA Approved and verifi cation was performed prior to clinical use. Reference Range: Not DetectedPOCT- GLUCOSE [id number] 08:43:00* Test Item Value Reference Range Interpretation Comments POC-GLUCOSE METER (BEAKER) (test code = 1538) 309 mg/dL 70-110 H Will Repeat Test/TESTED AT [facility] [address] [place] [address] URINE [id number] 08:23:00* Test Item Value Reference Range Interpretation Comments CULTURE (BEAKER) (test code = 1095) No growth URINE [id number] 08:10:00* Test Item Value Reference Range Interpretation Comments CULTURE (BEAKER) (test code = 1095) ESCHERICHIA COLI A >100,000 col/mL Escherichia coli Amikacin (test code = 1) S Ampicillin + Sulbactam (test code = 6) R Aztreonam (test code = 32) S Cefazolin (test code = 9) Cefepime (test code = 51) S Cefoxitin (test code = 68) S Ceftazidime (test code = 27) S Ceftriaxone (test code = 52) S Ertapenem (test code = 38) S Gentamicin (test code = 18) S Levofloxacin (test code = 22) S Meropenem (test code = 34) S Nitrofurantoin (test code = 23) R Piperacillin + Tazobactam (test code = 29) S Tetracycline (test code = 2) R Tigecycline (test code = 133) Tobramycin (test code = 25) S Trimethoprim + Sulfamethoxazole (test code = 47) R <10,000 col/mL skin floraCBC W/PLT COUNT & AUTO [id number] 05:35:00 * Test Item Value Reference Range Interpretation Comments WHITE BLOOD CELL COUNT (BEAKER) (test code = 775) 6.5 K/ L 4.0- 10.0 RED BLOOD CELL COUNT (BEAKER) (test code = 761) 4.19 M/ L 4.00-5 .00 HEMOGLOBIN (BEAKER) (test code = 410) 10.6 GM/DL 12.0-15.0 L HEMATOCRIT (BEAKER) (test code = 411) 34.6 % 36.0-45.0 L MEAN CORPUSCULAR VOLUME (BEAKER) (test code = 753) 82.6 fL 82. 0-99.0 MEAN CORPUSCULAR HEMOGLOBIN (BEAKER) (test code = 751) 25.2 pg 27.0-33.0 L MEAN CORPUSCULAR HEMOGLOBIN CONC (BEAKER) (test code = 752) 30.5 GM/DL 32.0-36.0 L RED CELL DISTRIBUTION WIDTH (BEAKER) (test code = 412) 22.5 % 10.3-14.2 H PLATELET COUNT (BEAKER) (test code = 756) 348 K/CU MM 150-430 MEAN PLATELET VOLUME (BEAKER) (test code = 754) 9.0 fL 6.5-10 .5 NUCLEATED RED BLOOD CELLS (BEAKER) (test code = 413) 0 /100 WBC 0 -0 NEUTROPHILS RELATIVE PERCENT (BEAKER) (test code = 429) 60 % LYMPHOCYTES RELATIVE PERCENT (BEAKER) (test code = 430) 27 % MONOCYTES RELATIVE PERCENT (BEAKER) (test code = 431) 9 % EOSINOPHILS RELATIVE PERCENT (BEAKER) (test code = 432) 4 % BASOPHILS RELATIVE PERCENT (BEAKER) (test code = 437) 1 % NEUTROPHILS ABSOLUTE COUNT (BEAKER) (test code = 670) 3.87 K/ L 1.80-8.00 LYMPHOCYTES ABSOLUTE COUNT (BEAKER) (test code = 414) 1.71 K/ L 1.48-4.50 MONOCYTES ABSOLUTE COUNT (BEAKER) (test code = 415) 0.58 K/ L 0. 00-1.30 EOSINOPHILS ABSOLUTE COUNT (BEAKER) (test code = 416) 0.25 K/ L 0.00-0.50 BASOPHILS ABSOLUTE COUNT (BEAKER) (test code = 417) 0.06 K/ L 0. 00-0.20 0.00BASIC METABOLIC [id number] 05:33:00* Test Item Value Reference Range Interpretation Comments SODIUM (BEAKER) (test code = 381) 135 meq/L 136-145 L POTASSIUM (BEAKER) (test code = 379) 3.6 meq/L 3.5-5.1 CHLORIDE (BEAKER) (test code = 382) 102 meq/L 98-107 CO2 (BEAKER) (test code = 355) 24 meq/L 22-29 BLOOD UREA NITROGEN (BEAKER) (test code = 354) 8 mg/dL 7-21 CREATININE (BEAKER) (test code = 358) 0.81 mg/dL 0.57-1.25 GLUCOSE RANDOM (BEAKER) (test code = 652) 287 mg/dL 70-105 H CALCIUM (BEAKER) (test code = 697) 8.6 mg/dL 8.4-10.2 EGFR (BEAKER) (test code = 1092) 79 mL/min/1.73 sq m ESTIMATED GFR IS NOT ACCURATE CREATININE CLEARANCE IN PREDICTING GLOMERULAR FILTRATION RATE. ESTIMATED GFR IS NOT APPLICABLE FOR DIALYSIS PATIENTS. POCT-GLUCOSE [id number] 22:08:00* Test Item Value Reference Range Interpretation Comments POC-GLUCOSE METER (BEAKER) (test code = 1538) 367 mg/dL 70-110 H TESTED AT [facility] [id number] [place] [address] POCT-GLUCOSE [id number] 19:46:00* Test Item Value Reference Range Interpretation Comments POC-GLUCOSE METER (BEAKER) (test code = 1538) 364 mg/dL 70-110 H TESTED AT [address] [address] POCT-GLUCOSE [id number] 11:45:00* Test Item Value Reference Range Interpretation Comments POC-GLUCOSE METER (BEAKER) (test code = 1538) 230 mg/dL 70-110 H TESTED AT [address] [address] POCT-GLUCOSE [id number] 08:41:00* Test Item Value Reference Range Interpretation Comments POC-GLUCOSE METER (BEAKER) (test code = 1538) 270 mg/dL 70-110 H TESTED AT [facility] [address] [place] [address] CBC W/PLT COUNT & AUTO [id number] 03:56:00* Test Item Value Reference Range Interpretation Comments WHITE BLOOD CELL COUNT (BEAKER) (test code = 775) 6.9 K/ L 4.0- 10.0 RED BLOOD CELL COUNT (BEAKER) (test code = 761) 3.93 M/ L 4.00-5 .00 L HEMOGLOBIN (BEAKER) (test code = 410) 10.2 GM/DL 12.0-15.0 L HEMATOCRIT (BEAKER) (test code = 411) 32.8 % 36.0-45.0 L MEAN CORPUSCULAR VOLUME (BEAKER) (test code = 753) 83.3 fL 82. 0-99.0 MEAN CORPUSCULAR HEMOGLOBIN (BEAKER) (test code = 751) 25.8 pg 27.0-33.0 L MEAN CORPUSCULAR HEMOGLOBIN CONC (BEAKER) (test code = 752) 31.0 GM/DL 32.0-36.0 L RED CELL DISTRIBUTION WIDTH (BEAKER) (test code = 412) 21.7 % 10.3-14.2 H PLATELET COUNT (BEAKER) (test code = 756) 335 K/CU MM 150-430 MEAN PLATELET VOLUME (BEAKER) (test code = 754) 8.8 fL 6.5-10 .5 NUCLEATED RED BLOOD CELLS (BEAKER) (test code = 413) 0 /100 WBC 0 -0 NEUTROPHILS RELATIVE PERCENT (BEAKER) (test code = 429) 78 % LYMPHOCYTES RELATIVE PERCENT (BEAKER) (test code = 430) 13 % MONOCYTES RELATIVE PERCENT (BEAKER) (test code = 431) 6 % EOSINOPHILS RELATIVE PERCENT (BEAKER) (test code = 432) 2 % BASOPHILS RELATIVE PERCENT (BEAKER) (test code = 437) 0 % NEUTROPHILS ABSOLUTE COUNT (BEAKER) (test code = 670) 5.38 K/ L 1.80-8.00 LYMPHOCYTES ABSOLUTE COUNT (BEAKER) (test code = 414) 0.93 K/ L 1.48-4.50 L MONOCYTES ABSOLUTE COUNT (BEAKER) (test code = 415) 0.44 K/ L 0. 00-1.30 EOSINOPHILS ABSOLUTE COUNT (BEAKER) (test code = 416) 0.14 K/ L 0.00-0.50 BASOPHILS ABSOLUTE COUNT (BEAKER) (test code = 417) 0.01 K/ L 0. 00-0.20 0.00BASIC METABOLIC [id number] 03:40:00* Test Item Value Reference Range Interpretation Comments SODIUM (BEAKER) (test code = 381) 135 meq/L 136-145 L POTASSIUM (BEAKER) (test code = 379) 4.0 meq/L 3.5-5.1 Specimen moderately hemolyzed CHLORIDE (BEAKER) (test code = 382) 106 meq/L 98-107 CO2 (BEAKER) (test code = 355) 21 meq/L 22-29 L BLOOD UREA NITROGEN (BEAKER) (test code = 354) 6 mg/dL 7-21 L CREATININE (BEAKER) (test code = 358) 0.78 mg/dL 0.57-1.25 Specimen moderately hemolyzed GLUCOSE RANDOM (BEAKER) (test code = 652) 266 mg/dL 70-105 H CALCIUM (BEAKER) (test code = 697) 8.0 mg/dL 8.4-10.2 L EGFR (BEAKER) (test code = 1092) 83 mL/min/1.73 sq m ESTIMATED GFR IS NOT ACCURATE CREATININE CLEARANCE IN PREDICTING GLOMERULAR FILTRATION RATE. ESTIMATED GFR IS NOT APPLICABLE FOR DIALYSIS PATIENTS. LACTIC ACID, VENOUS, WHOLE [id number] 03:37:00* Test Item Value Reference Range Interpretation Comments LACTATE BLOOD VENOUS (2) (BEAKER) (test code = 2872) 1.7 mmol/L 0 .5-2.2 Specimen slightly hemolyzed Effective 10/06/2015: Units/Reference Range ChangeNew: 0.5-2.2 mmol/L Previous: 5 -20 mg/dLURINALYSIS W/ [id number] 16:45:00* Test Item Value Reference Range Interpretation Comments COLOR (BEAKER) (test code = 470) Light Yellow CLARITY (BEAKER) (test code = 469) Clear SPECIFIC GRAVITY UA (BEAKER) (test code = 468) 1.011 1.001-1 .035 PH UA (BEAKER) (test code = 467) 7.0 5.0-8.0 PROTEIN UA (BEAKER) (test code = 464) 10 mg/dL Negative A GLUCOSE UA (BEAKER) (test code = 365) >1000 mg/dL Negative A KETONES UA (BEAKER) (test code = 371) Negative Negative BILIRUBIN UA (BEAKER) (test code = 462) Negative Negative BLOOD UA (BEAKER) (test code = 461) Negative Negative NITRITE UA (BEAKER) (test code = 465) Negative Negative LEUKOCYTE ESTERASE UA (BEAKER) (test code = 466) Negative Negat juan UROBILINOGEN UA (BEAKER) (test code = 463) 0.2 mg/dL 0.2-1.0 RBC UA (BEAKER) (test code = 519) < /HPF WBC UA (BEAKER) (test code = 520) 1 /HPF SQUAMOUS EPITHELIAL (BEAKER) (test code = 516) 1 /HPF SOURCE(BEAKER) (test code = 2795) Urine, Clean Catch [id number] 12:15:00* Test Item Value Reference Range Interpretation Comments PROCALCITONIN (BEAKER) (test code = 3036) 6.87 ng/mL <0.05 H SEPSIS RISK (ng/mL)Low: 0.05-0.50Intermediate: 0.51-2.00High: > =2.01LACTIC ACID, VENOUS, WHOLE [id number] 10:33:00* Test Item Value Reference Range Interpretation Comments LACTATE BLOOD VENOUS (2) (BEAKER) (test code = 2872) 2.2 mmol/L 0 .5-2.2 Effective 10/06/2015: Units/Reference Range ChangeNew: 0.5-2.2 mmol/L Previous: 5 -20 mg/dLLACTIC ACID, VENOUS, WHOLE [id number] 08:56:00* Test Item Value Reference Range Interpretation Comments LACTATE BLOOD VENOUS (2) (BEAKER) (test code = 2872) 1.8 mmol/L 0 .5-2.2 Effective 10/06/2015: Units/Reference Range ChangeNew: 0.5-2.2 mmol/L Previous: 5 -20 mg/dLLACTIC ACID, VENOUS, WHOLE [id number] 07:51:00* Test Item Value Reference Range Interpretation Comments LACTATE BLOOD VENOUS (2) (BEAKER) (test code = 2872) 1.7 mmol/L 0 .5-2.2 Specimen slightly hemolyzed Effective 10/06/2015: Units/Reference Range ChangeNew: 0.5-2.2 mmol/L Previous: 5 -20 mg/dLCOMPREHENSIVE METABOLIC [id number] 05:31:00* Test Item Value Reference Range Interpretation Comments TOTAL PROTEIN (BEAKER) (test code = 770) 5.8 gm/dL 6.0-8.3 L ALBUMIN (BEAKER) (test code = 1145) 3.0 g/dL 3.5-5.0 L ALKALINE PHOSPHATASE (BEAKER) (test code = 346) 124 U/L 40-150 BILIRUBIN TOTAL (BEAKER) (test code = 377) 0.4 mg/dL 0.2-1.2 SODIUM (BEAKER) (test code = 381) 135 meq/L 136-145 L POTASSIUM (BEAKER) (test code = 379) 3.9 meq/L 3.5-5.1 CHLORIDE (BEAKER) (test code = 382) 107 meq/L 98-107 CO2 (BEAKER) (test code = 355) 18 meq/L 22-29 L BLOOD UREA NITROGEN (BEAKER) (test code = 354) 7 mg/dL 7-21 CREATININE (BEAKER) (test code = 358) 0.90 mg/dL 0.57-1.25 GLUCOSE RANDOM (BEAKER) (test code = 652) 335 mg/dL 70-105 H CALCIUM (BEAKER) (test code = 697) 7.9 mg/dL 8.4-10.2 L AST (SGOT) (BEAKER) (test code = 353) 34 U/L 5-34 ALT (SGPT) (BEAKER) (test code = 347) 31 U/L 6-55 EGFR (BEAKER) (test code = 1092) 70 mL/min/1.73 sq m ESTIMATED GFR IS NOT ACCURATE CREATININE CLEARANCE IN PREDICTING GLOMERULAR FILTRATION RATE. ESTIMATED GFR IS NOT APPLICABLE FOR DIALYSIS PATIENTS. CBC (HEMOGRAM ONLY)2016-11-05 05:22:00* Test Item Value Reference Range Interpretation Comments WHITE BLOOD CELL COUNT (BEAKER) (test code = 775) 16.6 K/ L 4.0- 10.0 H RED BLOOD CELL COUNT (BEAKER) (test code = 761) 4.01 M/ L 4.00-5 .00 HEMOGLOBIN (BEAKER) (test code = 410) 10.0 GM/DL 12.0-15.0 L HEMATOCRIT (BEAKER) (test code = 411) 33.3 % 36.0-45.0 L MEAN CORPUSCULAR VOLUME (BEAKER) (test code = 753) 82.9 fL 82. 0-99.0 MEAN CORPUSCULAR HEMOGLOBIN (BEAKER) (test code = 751) 24.8 pg 27.0-33.0 L MEAN CORPUSCULAR HEMOGLOBIN CONC (BEAKER) (test code = 752) 30.0 GM/DL 32.0-36.0 L RED CELL DISTRIBUTION WIDTH (BEAKER) (test code = 412) 21.9 % 10.3-14.2 H PLATELET COUNT (BEAKER) (test code = 756) 376 K/CU MM 150-430 MEAN PLATELET VOLUME (BEAKER) (test code = 754) 8.5 fL 6.5-10 .5 NUCLEATED RED BLOOD CELLS (BEAKER) (test code = 413) 0 /100 WBC 0 -0 0.000.530.000.000.520.000.000.000.00LACTIC ACID, VENOUS, WHOLE [id number] 05:01:00* Test Item Value Reference Range Interpretation Comments LACTATE BLOOD VENOUS (2) (BEAKER) (test code = 2872) 3.0 mmol/L 0 .5-2.2 H Effective 10/06/2015: Units/Reference Range ChangeNew: 0.5-2.2 mmol/L Previous: 5 -20 mg/dLLACTIC ACID, VENOUS, WHOLE [id number] 03:11:00* Test Item Value Reference Range Interpretation Comments LACTATE BLOOD VENOUS (2) (BEAKER) (test code = 2872) 2.5 mmol/L 0 .5-2.2 H Specimen moderately hemolyzed Effective 10/06/2015: Units/Reference Range ChangeNew: 0.5-2.2 mmol/L Previous: 5 -20 mg/dLB-TYPE NATRIURETIC FACTOR (BNP)2016-11-05 01:04:00* Test Item Value Reference Range Interpretation Comments B-TYPE NATRIURETIC PEPTIDE (BEAKER) (test code = 700) 100 pg/mL 0-100 LACTIC ACID, VENOUS, WHOLE [id number] 00:45:00* Test Item Value Reference Range Interpretation Comments LACTATE BLOOD VENOUS (2) (BEAKER) (test code = 2872) 4.6 mmol/L 0 .5-2.2 H Effective 10/06/2015: Units/Reference Range ChangeNew: 0.5-2.2 mmol/L Previous: 5 -20 mg/dLHEMOGLOBIN AND [id number] 00:23:00* Test Item Value Reference Range Interpretation Comments HEMOGLOBIN (BEAKER) (test code = 410) 9.3 GM/DL 12.0-15.0 L HEMATOCRIT (BEAKER) (test code = 411) 29.4 % 36.0-45.0 L CBC W/PLT COUNT & AUTO [id number] 23:16:00* Test Item Value Reference Range Interpretation Comments WHITE BLOOD CELL COUNT (BEAKER) (test code = 775) 23.9 K/ L 4.0- 10.0 H RED BLOOD CELL COUNT (BEAKER) (test code = 761) 3.99 M/ L 4.00-5 .00 L HEMOGLOBIN (BEAKER) (test code = 410) 9.8 GM/DL 12.0-15.0 L HEMATOCRIT (BEAKER) (test code = 411) 32.6 % 36.0-45.0 L MEAN CORPUSCULAR VOLUME (BEAKER) (test code = 753) 81.8 fL 82. 0-99.0 L MEAN CORPUSCULAR HEMOGLOBIN (BEAKER) (test code = 751) 24.6 pg 27.0-33.0 L MEAN CORPUSCULAR HEMOGLOBIN CONC (BEAKER) (test code = 752) 30.0 GM/DL 32.0-36.0 L RED CELL DISTRIBUTION WIDTH (BEAKER) (test code = 412) 22.6 % 10.3-14.2 H PLATELET COUNT (BEAKER) (test code = 756) 401 K/CU MM 150-430 MEAN PLATELET VOLUME (BEAKER) (test code = 754) 8.6 fL 6.5-10 .5 NUCLEATED RED BLOOD CELLS (BEAKER) (test code = 413) 0 /100 WBC 0 -0 0.000.720.000.000.690.000.000.000.00(MANUAL DIFFERENTIAL)2016-11-04 23:16:00* Test Item Value Reference Range Interpretation Comments NEUTROPHILS - REL (DIFF) (BEAKER) (test code = 1359) 80 % LYMPHOCYTES - REL (DIFF) (BEAKER) (test code = 1360) 4 % MONOCYTES - REL (DIFF) (BEAKER) (test code = 1361) 2 % METAMYELOCYTES-REL (DIFF) (BEAKER) (test code = 258) 1 % 0 -0 H MYELOCYTES-REL (DIFF) (BEAKER) (test code = 1594) 1 % 0-0 H BANDS - REL (DIFF) (BEAKER) (test code = 1348) 12 % 0-10 H NEUTROPHILS - ABS (DIFF) (BEAKER) (test code = 1365) 19.12 K/ L 1 .80-8.00 H LYMPHOCYTES - ABS (DIFF) (BEAKER) (test code = 1366) 0.96 K/ L 1 .48-4.50 L MONOCYTES - ABS (DIFF) (BEAKER) (test code = 1367) 0.48 K/ L 0.0 0-1.30 METAMYELOCTYES - ABS (DIFF) (BEAKER) (test code = 261) 0.24 K/ L 0.00-0.00 H BANDS-ABS (DIFF) (BEAKER) (test code = 1349) 2.9 K/ L 0.0-0.8 H MYELOCYTES-ABS (DIFF) (BEAKER) (test code = 1593) 0.24 K/ L 0.00 -0.00 H TOTAL COUNTED (BEAKER) (test code = 1351) 100 BANDS + SEGMENTED NEUTROPHILS (BEAKER) (test code = 1352) 21.99 WBC MORPHOLOGY (BEAKER) (test code = 487) Normal PLT MORPHOLOGY (BEAKER) (test code = 486) Normal HYPOCHROMIA (BEAKER) (test code = 963) 2+ moderate POIKILOCYTES (BEAKER) (test code = 966) 1+ few POCT-LACTIC ACID, [id number] 22:25:00* Test Item Value Reference Range Interpretation Comments POC-LACTIC ACID, VENOUS (BEAKER) (test code = 2805) 6.0 mmol/L 0. 9-1.7 H TESTED AT [place] [id number] [place] [address] POCT-BLOOD GASES, [id number] 22:19:00* Test Item Value Reference Range Interpretation Comments TEMP, CELSIUS-POC (BEAKER) (test code = 1834) 38.3 FIO2-POC (BEAKER) (test code = 1835) 32 [address] [address] PH, VENOUS-POC (BEAKER) (test code = 1842) 7.377 7.320-7.420 PCO2, VENOUS-POC (BEAKER) (test code = 1843) 29.1 mm Hg 41.0-51.0 L PO2, VENOUS-POC (BEAKER) (test code = 1844) 57.0 mm Hg 25.0-40.0 H SO2, VENOUS-POC (BEAKER) (test code = 1845) 87.0 % 40.0-70.0 H HCO3, VENOUS-POC (BEAKER) (test code = 1846) 16.9 meq/L 21.0-29.0 L BASE EXCESS, VENOUS-POC (BEAKER) (test code = 1847) -8.0 meq/L -2 .0-3.0 L [id number] 22:19:00* Test Item Value Reference Range Interpretation Comments POC-SODIUM (BEAKER) (test code = 1542) 136 meq/L 135-148 TESTED AT [address] [address] [id number] 22:19:00* Test Item Value Reference Range Interpretation Comments POC-POTASSIUM (BEAKER) (test code = 1540) 3.9 meq/L 3.6-5.5 TESTED AT [address] [address] [id number] 22:19:00* Test Item Value Reference Range Interpretation Comments POC-GLUCOSE (BEAKER) (test code = 1855) 337 mg/dL 70-110 H TESTED AT [address] [address] POCT-CALCIUM [id number] 22:19:00* Test Item Value Reference Range Interpretation Comments POC-CALCIUM IONIZED (BEAKER) (test code = 1536) 1.13 mmol/L 1.12-1 .27 TESTED AT [address] [address] [id number] 22:19:00* Test Item Value Reference Range Interpretation Comments POC-HEMATOCRIT (BEAKER) (test code = 1857) 33 % 36-45 L TESTED AT [address] [address] [id number] 22:19:00* Test Item Value Reference Range Interpretation Comments POC-HEMOGLOBIN (BEAKER) (test code = 1856) 11.2 g/dL 12.0-15.0 L TESTED AT [address] [address] POCT-GLUCOSE [id number] 21:13:00* Test Item Value Reference Range Interpretation Comments POC-GLUCOSE METER (BEAKER) (test code = 1538) 360 mg/dL 70-110 H Notified JUAN WILSON/TESTED AT [address] [address] HEMOGLOBIN AND [id number] 21:09:00* Test Item Value Reference Range Interpretation Comments HEMOGLOBIN (BEAKER) (test code = 410) 11.1 GM/DL 12.0-15.0 L HEMATOCRIT (BEAKER) (test code = 411) 34.3 % 36.0-45.0 L LACTIC ACID, VENOUS, WHOLE [id number] 21:02:00* Test Item Value Reference Range Interpretation Comments LACTATE BLOOD VENOUS (2) (BEAKER) (test code = 2872) 5.5 mmol/L 0 .5-2.2 H Effective 10/06/2015: Units/Reference Range ChangeNew: 0.5-2.2 mmol/L Previous: 5 -20 mg/dLLACTIC ACID, VENOUS, WHOLE [id number] 18:43:00* Test Item Value Reference Range Interpretation Comments LACTATE BLOOD VENOUS (2) (BEAKER) (test code = 2872) 4.5 mmol/L 0 .5-2.2 H Effective 10/06/2015: Units/Reference Range ChangeNew: 0.5-2.2 mmol/L Previous: 5 -20 mg/dLPOCT-GLUCOSE [id number] 18:12:00* Test Item Value Reference Range Interpretation Comments POC-GLUCOSE METER (BEAKER) (test code = 1538) 241 mg/dL 70-110 H TESTED AT [facility] [address] [place] [address] LACTIC ACID, VENOUS, WHOLE [id number] 17:06:00* Test Item Value Reference Range Interpretation Comments LACTATE BLOOD VENOUS (2) (BEAKER) (test code = 2872) 2.9 mmol/L 0 .5-2.2 H Effective 10/06/2015: Units/Reference Range ChangeNew: 0.5-2.2 mmol/L Previous: 5 -18 mg/dLLACTIC ACID, VENOUS, WHOLE [id number] 15:15:00* Test Item Value Reference Range Interpretation Comments LACTATE BLOOD VENOUS (2) (BEAKER) (test code = 2872) 2.9 mmol/L 0 .5-2.2 H Effective 10/06/2015: Units/Reference Range ChangeNew: 0.5-2.2 mmol/L Previous: 5 -18 mg/dLURINALYSIS W/ [id number] 13:57:00* Test Item Value Reference Range Interpretation Comments COLOR (BEAKER) (test code = 470) Yellow CLARITY (BEAKER) (test code = 469) Cloudy SPECIFIC GRAVITY UA (BEAKER) (test code = 468) 1.025 1.001-1 .035 PH UA (BEAKER) (test code = 467) 6.0 5.0-8.0 PROTEIN UA (BEAKER) (test code = 464) 30 mg/dL Negative A GLUCOSE UA (BEAKER) (test code = 365) 100 mg/dL Negative A KETONES UA (BEAKER) (test code = 371) Negative Negative BILIRUBIN UA (BEAKER) (test code = 462) Negative Negative BLOOD UA (BEAKER) (test code = 461) Small Negative A NITRITE UA (BEAKER) (test code = 465) Negative Negative LEUKOCYTE ESTERASE UA (BEAKER) (test code = 466) Small Negat juan A UROBILINOGEN UA (BEAKER) (test code = 463) 0.2 mg/dL 0.2-1.0 BACTERIA (BEAKER) (test code = 517) Many RBC UA-MANUAL (BEAKER) (test code = 1659) 10-20 /HPF WBC UA-MANUAL (BEAKER) (test code = 1661) 50-100 /HPF SQUAMOUS EPITHELIAL MANUAL (BEAKER) (test code = 1663) 5-10 /HPF SOURCE(BEAKER) (test code = 2795) SCREEN, [id number] 13:52:00* Test Item Value Reference Range Interpretation Comments TEST URINE (BEAKER) (test code = 583) Negative RAPID TROPONIN [id number] 13:51:00* Test Item Value Reference Range Interpretation Comments RAPID TROPONIN I (BEAKER) (test code = 1483) < ng/mL <0.05 COMPREHENSIVE METABOLIC [id number] 13:37:00* Test Item Value Reference Range Interpretation Comments TOTAL PROTEIN (BEAKER) (test code = 770) 8.1 gm/dL 6.0-8.5 ALBUMIN (BEAKER) (test code = 1145) 4.3 g/dL 3.5-5.0 ALKALINE PHOSPHATASE (BEAKER) (test code = 346) 165 U/L 30-115 H BILIRUBIN TOTAL (BEAKER) (test code = 377) 0.5 mg/dL 0.1-1.2 SODIUM (BEAKER) (test code = 381) 138 meq/L 135-148 POTASSIUM (BEAKER) (test code = 379) 4.3 meq/L 3.6-5.5 CHLORIDE (BEAKER) (test code = 382) 98 meq/L 98-106 CO2 (BEAKER) (test code = 355) 21 meq/L 24-32 L BLOOD UREA NITROGEN (BEAKER) (test code = 354) 10 mg/dL 10-26 CREATININE (BEAKER) (test code = 358) 0.66 mg/dL 0.50-1.20 GLUCOSE RANDOM (BEAKER) (test code = 652) 183 mg/dL 70-110 H CALCIUM (BEAKER) (test code = 697) 9.4 mg/dL 8.5-10.5 AST (SGOT) (BEAKER) (test code = 353) 42 U/L 5-40 H ALT (SGPT) (BEAKER) (test code = 347) 42 U/L 5-50 EGFR (BEAKER) (test code = 1092) 100 mL/min/1.73 sq m ESTIMATED GFR IS NOT ACCURATE CREATININE CLEARANCE IN PREDICTING GLOMERULAR FILTRATION RATE. ESTIMATED GFR IS NOT APPLICABLE FOR DIALYSIS PATIENTS. [id number] 13:37:00* Test Item Value Reference Range Interpretation Comments LIPASE (BEAKER) (test code = 749) 75 U/L 40-240 LACTIC ACID, VENOUS, WHOLE [id number] 13:35:00* Test Item Value Reference Range Interpretation Comments LACTATE BLOOD VENOUS (2) (BEAKER) (test code = 2872) 4.3 mmol/L 0 .5-2.2 H Effective 10/06/2015: Units/Reference Range ChangeNew: 0.5-2.2 mmol/L Previous: 5 -18 mg/dLCBC W/PLT COUNT & AUTO [id number] 13:32:00* Test Item Value Reference Range Interpretation Comments WHITE BLOOD CELL COUNT (BEAKER) (test code = 775) 14.0 10e3/ L 4.0- 10.0 H RED BLOOD CELL COUNT (BEAKER) (test code = 761) 5.20 10e6/ L 4.00-5 .00 H HEMOGLOBIN (BEAKER) (test code = 410) 12.4 g/dL 12.0-15.0 HEMATOCRIT (BEAKER) (test code = 411) 40.8 % 36.0-45.0 MEAN CORPUSCULAR VOLUME (BEAKER) (test code = 753) 78.4 fL 82. 0-99.0 L MEAN CORPUSCULAR HEMOGLOBIN (BEAKER) (test code = 751) 23.8 pg 27.0-33.0 L MEAN CORPUSCULAR HEMOGLOBIN CONC (BEAKER) (test code = 752) 30.4 g/dL 32.0-36.0 L RED CELL DISTRIBUTION WIDTH (BEAKER) (test code = 412) 20.4 % 10.3-14.2 H PLATELET COUNT (BEAKER) (test code = 756) 521 10e3/ L 150-430 H MEAN PLATELET VOLUME (BEAKER) (test code = 754) 8.2 fL 6.5-10 .5 NEUTROPHILS RELATIVE PERCENT (BEAKER) (test code = 429) 87 % LYMPHOCYTES RELATIVE PERCENT (BEAKER) (test code = 430) 9 % MONOCYTES RELATIVE PERCENT (BEAKER) (test code = 431) 2 % EOSINOPHILS RELATIVE PERCENT (BEAKER) (test code = 432) 2 % BASOPHILS RELATIVE PERCENT (BEAKER) (test code = 437) 0 % NEUTROPHILS ABSOLUTE COUNT (BEAKER) (test code = 670) 12.24 10e3/ L 1.80-8.00 H LYMPHOCYTES ABSOLUTE COUNT (BEAKER) (test code = 414) 1.26 10e3/ L 1.48-4.50 L MONOCYTES ABSOLUTE COUNT (BEAKER) (test code = 415) 0.25 10e3/ L 0. 00-1.30 EOSINOPHILS ABSOLUTE COUNT (BEAKER) (test code = 416) 0.22 10e3/ L 0.00-0.50 BASOPHILS ABSOLUTE COUNT (BEAKER) (test code = 417) 0.06 10e3/ L 0. 00-0.20 BLOOD GAS, [id number] 13:30:00* Test Item Value Reference Range Interpretation Comments PH VENOUS (BEAKER) (test code = 701) 7.42 7.32-7.42 PCO2 VENOUS (BEAKER) (test code = 755) 35 mm Hg 41-51 L PO2 VENOUS (BEAKER) (test code = 702) 29 mm Hg 25-40 O2 SATURATION VENOUS (BEAKER) (test code = 703) 57.4 % 40.0-7 0.0 HCO3 VENOUS (BEAKER) (test code = 705) 22 mmol/L 21-29 BASE EXCESS VENOUS (BEAKER) (test code = 704) -1.6 mmol/L -2.0-3.0 SEDIMENTATION [id number] 15:24:00* Test Item Value Reference Range Interpretation Comments SEDIMENTATION RATE, ERYTHROCYTE (BEAKER) (test code = 766) 39 mm/HR 0-20 H POCT-GLUCOSE [id number] 12:32:00* Test Item Value Reference Range Interpretation Comments POC-GLUCOSE METER (BEAKER) (test code = 1538) 339 mg/dL 70-110 H TESTED AT [facility] [address] [place] [address] POCT-GLUCOSE [id number] 08:21:00* Test Item Value Reference Range Interpretation Comments POC-GLUCOSE METER (BEAKER) (test code = 1538) 327 mg/dL 70-110 H TESTED AT [place] [id number] [place] [address] CBC W/PLT COUNT & AUTO [id number] 07:27:00* Test Item Value Reference Range Interpretation Comments WHITE BLOOD CELL COUNT (BEAKER) (test code = 775) 17.0 K/ L 4.0- 10.0 H RED BLOOD CELL COUNT (BEAKER) (test code = 761) 3.87 M/ L 4.00-5 .00 L HEMOGLOBIN (BEAKER) (test code = 410) 8.7 GM/DL 12.0-15.0 L HEMATOCRIT (BEAKER) (test code = 411) 29.4 % 36.0-45.0 L MEAN CORPUSCULAR VOLUME (BEAKER) (test code = 753) 76.0 fL 82. 0-99.0 L MEAN CORPUSCULAR HEMOGLOBIN (BEAKER) (test code = 751) 22.6 pg 27.0-33.0 L MEAN CORPUSCULAR HEMOGLOBIN CONC (BEAKER) (test code = 752) 29.7 GM/DL 32.0-36.0 L RED CELL DISTRIBUTION WIDTH (BEAKER) (test code = 412) 17.1 % 10.3-14.2 H PLATELET COUNT (BEAKER) (test code = 756) 516 K/CU MM 150-430 H MEAN PLATELET VOLUME (BEAKER) (test code = 754) 8.0 fL 6.5-10 .5 NUCLEATED RED BLOOD CELLS (BEAKER) (test code = 413) 0 /100 WBC 0 -0 NEUTROPHILS RELATIVE PERCENT (BEAKER) (test code = 429) 88 % LYMPHOCYTES RELATIVE PERCENT (BEAKER) (test code = 430) 11 % MONOCYTES RELATIVE PERCENT (BEAKER) (test code = 431) 2 % EOSINOPHILS RELATIVE PERCENT (BEAKER) (test code = 432) 0 % BASOPHILS RELATIVE PERCENT (BEAKER) (test code = 437) 0 % NEUTROPHILS ABSOLUTE COUNT (BEAKER) (test code = 670) 14.90 K/ L 1.80-8.00 H LYMPHOCYTES ABSOLUTE COUNT (BEAKER) (test code = 414) 1.79 K/ L 1.48-4.50 MONOCYTES ABSOLUTE COUNT (BEAKER) (test code = 415) 0.26 K/ L 0. 00-1.30 EOSINOPHILS ABSOLUTE COUNT (BEAKER) (test code = 416) 0.04 K/ L 0.00-0.50 BASOPHILS ABSOLUTE COUNT (BEAKER) (test code = 417) 0.04 K/ L 0. 00-0.20 0.00BASI METABOLIC [id number] 06:52:00* Test Item Value Reference Range Interpretation Comments SODIUM (BEAKER) (test code = 381) 135 meq/L 136-145 L POTASSIUM (BEAKER) (test code = 379) 4.5 meq/L 3.5-5.1 CHLORIDE (BEAKER) (test code = 382) 103 meq/L 98-107 CO2 (BEAKER) (test code = 355) 22 meq/L 22-29 BLOOD UREA NITROGEN (BEAKER) (test code = 354) 16 mg/dL 7-21 CREATININE (BEAKER) (test code = 358) 0.87 mg/dL 0.57-1.25 GLUCOSE RANDOM (BEAKER) (test code = 652) 438 mg/dL 70-105 HH CALCIUM (BEAKER) (test code = 697) 9.1 mg/dL 8.4-10.2 EGFR (BEAKER) (test code = 1092) 73 mL/min/1.73 sq m ESTIMATED GFR IS NOT ACCURATE CREATININE CLEARANCE IN PREDICTING GLOMERULAR FILTRATION RATE. ESTIMATED GFR IS NOT APPLICABLE FOR DIALYSIS PATIENTS. PROTHROMBIN [id number] 06:20:00* Test Item Value Reference Range Interpretation Comments PROTIME (BEAKER) (test code = 759) 14.0 seconds 11.7-14.7 INR (BEAKER) (test code = 370) 1.1 <=5.9 RECOMMENDED COUMADIN/WARFARIN INR THERAPY RANGESSTANDARD DOSE: 2.0 - 3.0 Inclu jm: PROPHYLAXIS for venous thrombosis, systemic embolization; TREATMENT for kamar ous thrombosis and/or pulmonary embolus.HIGH RISK: Target INR is 2.5-3.5 for pat ients with mechanical heart valves.POCT-GLUCOSE [id number] 22:25:00* Test Item Value Reference Range Interpretation Comments POC-GLUCOSE METER (BEAKER) (test code = 1538) 331 mg/dL 70-110 H Notified JUAN WILSON/TESTED AT [facility] [address] [place] [address] POCT-GLUCOSE [id number] 16:48:00* Test Item Value Reference Range Interpretation Comments POC-GLUCOSE METER (BEAKER) (test code = 1538) 240 mg/dL 70-110 H TESTED AT [facility] [address] [place] [address] HEMOGLOBIN AND [id number] 16:30:00* Test Item Value Reference Range Interpretation Comments HEMOGLOBIN (BEAKER) (test code = 410) 8.1 GM/DL 12.0-15.0 L HEMATOCRIT (BEAKER) (test code = 411) 27.1 % 36.0-45.0 L POCT-GLUCOSE [id number] 12:10:00* Test Item Value Reference Range Interpretation Comments POC-GLUCOSE METER (BEAKER) (test code = 1538) 244 mg/dL 70-110 H TESTED AT [facility] [address] [place] [address] CBC W/PLT COUNT & AUTO [id number] 08:49:00* Test Item Value Reference Range Interpretation Comments WHITE BLOOD CELL COUNT (BEAKER) (test code = 775) 12.6 K/ L 4.0- 10.0 H RED BLOOD CELL COUNT (BEAKER) (test code = 761) 3.51 M/ L 4.00-5 .00 L HEMOGLOBIN (BEAKER) (test code = 410) 7.7 GM/DL 12.0-15.0 L HEMATOCRIT (BEAKER) (test code = 411) 27.1 % 36.0-45.0 L MEAN CORPUSCULAR VOLUME (BEAKER) (test code = 753) 77.1 fL 82. 0-99.0 L MEAN CORPUSCULAR HEMOGLOBIN (BEAKER) (test code = 751) 22.0 pg 27.0-33.0 L MEAN CORPUSCULAR HEMOGLOBIN CONC (BEAKER) (test code = 752) 28.5 GM/DL 32.0-36.0 L RED CELL DISTRIBUTION WIDTH (BEAKER) (test code = 412) 16.7 % 10.3-14.2 H PLATELET COUNT (BEAKER) (test code = 756) 471 K/CU MM 150-430 H MEAN PLATELET VOLUME (BEAKER) (test code = 754) 8.1 fL 6.5-10 .5 NUCLEATED RED BLOOD CELLS (BEAKER) (test code = 413) 0 /100 WBC 0 -0 NEUTROPHILS RELATIVE PERCENT (BEAKER) (test code = 429) 63 % LYMPHOCYTES RELATIVE PERCENT (BEAKER) (test code = 430) 25 % MONOCYTES RELATIVE PERCENT (BEAKER) (test code = 431) 9 % EOSINOPHILS RELATIVE PERCENT (BEAKER) (test code = 432) 3 % BASOPHILS RELATIVE PERCENT (BEAKER) (test code = 437) 0 % NEUTROPHILS ABSOLUTE COUNT (BEAKER) (test code = 670) 7.95 K/ L 1.80-8.00 LYMPHOCYTES ABSOLUTE COUNT (BEAKER) (test code = 414) 3.14 K/ L 1.48-4.50 MONOCYTES ABSOLUTE COUNT (BEAKER) (test code = 415) 1.07 K/ L 0. 00-1.30 EOSINOPHILS ABSOLUTE COUNT (BEAKER) (test code = 416) 0.37 K/ L 0.00-0.50 BASOPHILS ABSOLUTE COUNT (BEAKER) (test code = 417) 0.05 K/ L 0. 00-0.20 0.00POCT-GLUCOSE [id number] 08:34:00* Test Item Value Reference Range Interpretation Comments POC-GLUCOSE METER (BEAKER) (test code = 1538) 232 mg/dL 70-110 H TESTED AT [facility] [address] [address] TROPONIN [id number] 07:36:00* Test Item Value Reference Range Interpretation Comments TROPONIN I (BEAKER) (test code = 397) < ng/mL 0.00-0.03 Effective 04/21/2014: Reference Range [...] neurological disease, and pers istent tachyarrhythmia.BASIC METABOLIC [id number] 07:28:00* Test Item Value Reference Range Interpretation Comments SODIUM (BEAKER) (test code = 381) 134 meq/L 136-145 L POTASSIUM (BEAKER) (test code = 379) 4.2 meq/L 3.5-5.1 Specimen slightly hemolyzed CHLORIDE (BEAKER) (test code = 382) 104 meq/L 98-107 CO2 (BEAKER) (test code = 355) 21 meq/L 22-29 L BLOOD UREA NITROGEN (BEAKER) (test code = 354) 15 mg/dL 7-21 CREATININE (BEAKER) (test code = 358) 0.76 mg/dL 0.57-1.25 Specimen slightly hemolyzed GLUCOSE RANDOM (BEAKER) (test code = 652) 211 mg/dL 70-105 H CALCIUM (BEAKER) (test code = 697) 8.4 mg/dL 8.4-10.2 EGFR (BEAKER) (test code = 1092) 85 mL/min/1.73 sq m ESTIMATED GFR IS NOT ACCURATE CREATININE CLEARANCE IN PREDICTING GLOMERULAR FILTRATION RATE. ESTIMATED GFR IS NOT APPLICABLE FOR DIALYSIS PATIENTS. LIPID [id number] 07:28:00* Test Item Value Reference Range Interpretation Comments TRIGLYCERIDES (BEAKER) (test code = 540) 61 mg/dL Specimen slightly hemolyzed CHOLESTEROL (BEAKER) (test code = 631) 78 mg/dL Specimen slightly hemolyzed HDL CHOLESTEROL (BEAKER) (test code = 976) 20 mg/dL LDL CHOLESTEROL CALCULATED (BEAKER) (test code = 633) 46 mg/dL Triglyceride Reference Range: Low Risk <150 Borderline 150-199 High Risk 200-499 Very High Risk >=500Cholesterol Reference Range: Low Risk <200 Borderline 200-239 High Risk >240HDL Cholesterol Reference Range: Low Risk >=60 High Risk <40LDL Cholesterol Reference Range: Optimal <100 Near Optimal 100-129 Borderline 130-159 High 160-189 Very High >=190 PROTHROMBIN TIME/[id number] 07:20:00* Test Item Value Reference Range Interpretation Comments PROTIME (BEMADHAV) (test code = 759) 14.6 seconds 11.7-14.7 INR (BEAKER) (test code = 370) 1.2 <=5.9 RECOMMENDED COUMADIN/WARFARIN INR THERAPY RANGESSTANDARD DOSE: 2.0 - 3.0 Inclu jm: PROPHYLAXIS for venous thrombosis, systemic embolization; TREATMENT for kamar ous thrombosis and/or pulmonary embolus.HIGH RISK: Target INR is 2.5-3.5 for pat ients with mechanical heart valves.POCT-GLUCOSE [id number] 23:52:00* Test Item Value Reference Range Interpretation Comments POC-GLUCOSE METER (EDY) (test code = 1538) 289 mg/dL 70-110 H TESTED AT [facility] [address] [address] B-TYPE NATRIURETIC FACTOR (BNP)2016-09-22 22:52:00* Test Item Value Reference Range Interpretation Comments B-TYPE NATRIURETIC PEPTIDE (BEAKER) (test code = 700) 28 pg/mL 0-100 CREATINE KINASE (CK), TOTAL AND [id number] 21:44:00* Test Item Value Reference Range Interpretation Comments CREATINE KINASE TOTAL (BEAKER) (test code = 380) 59 U/L 29-20 0 CREATINE KINASE-MB (BEAKER) (test code = 750) 0.8 ng/mL 0.0-6.6 CREATINE KINASE-MB INDEX (BEAKER) (test code = 395) 1.4 % Effective 04/21/2014: CK-MB Reference Range ChangeNew: 0.0-6.6 Previous: 0.0- 4.9CK-MB Reference Range:<6.7 Normal6.7-10.0 Borderline>10.0 Abnormal TROPONIN [id number] 21:44:00* Test Item Value Reference Range Interpretation Comments TROPONIN I (BEAKER) (test code = 397) 0.01 ng/mL 0.00-0.03 Effective 04/21/2014: Reference Range [...] pers istent tachyarrhythmia.CBC W/PLT COUNT & AUTO [id number] 21:38:00* Test Item Value Reference Range Interpretation Comments WHITE BLOOD CELL COUNT (BEAKER) (test code = 775) 14.9 K/ L 4.0- 10.0 H RED BLOOD CELL COUNT (BEAKER) (test code = 761) 3.84 M/ L 4.00-5 .00 L HEMOGLOBIN (BEAKER) (test code = 410) 8.6 GM/DL 12.0-15.0 L HEMATOCRIT (BEAKER) (test code = 411) 29.1 % 36.0-45.0 L MEAN CORPUSCULAR VOLUME (BEAKER) (test code = 753) 75.7 fL 82. 0-99.0 L MEAN CORPUSCULAR HEMOGLOBIN (BEAKER) (test code = 751) 22.4 pg 27.0-33.0 L MEAN CORPUSCULAR HEMOGLOBIN CONC (BEAKER) (test code = 752) 29.6 GM/DL 32.0-36.0 L RED CELL DISTRIBUTION WIDTH (BEAKER) (test code = 412) 16.5 % 10.3-14.2 H PLATELET COUNT (BEAKER) (test code = 756) 528 K/CU MM 150-430 H MEAN PLATELET VOLUME (BEAKER) (test code = 754) 7.8 fL 6.5-10 .5 NUCLEATED RED BLOOD CELLS (BEAKER) (test code = 413) 0 /100 WBC 0 -0 NEUTROPHILS RELATIVE PERCENT (BEAKER) (test code = 429) 67 % LYMPHOCYTES RELATIVE PERCENT (BEAKER) (test code = 430) 22 % MONOCYTES RELATIVE PERCENT (BEAKER) (test code = 431) 8 % EOSINOPHILS RELATIVE PERCENT (BEAKER) (test code = 432) 3 % BASOPHILS RELATIVE PERCENT (BEAKER) (test code = 437) 1 % NEUTROPHILS ABSOLUTE COUNT (BEAKER) (test code = 670) 9.99 K/ L 1.80-8.00 H LYMPHOCYTES ABSOLUTE COUNT (BEAKER) (test code = 414) 3.23 K/ L 1.48-4.50 MONOCYTES ABSOLUTE COUNT (BEAKER) (test code = 415) 1.21 K/ L 0. 00-1.30 EOSINOPHILS ABSOLUTE COUNT (BEAKER) (test code = 416) 0.40 K/ L 0.00-0.50 BASOPHILS ABSOLUTE COUNT (BEAKER) (test code = 417) 0.09 K/ L 0. 00-0.20 BASIC METABOLIC [id number] 21:38:00* Test Item Value Reference Range Interpretation Comments SODIUM (BEAKER) (test code = 381) 139 meq/L 136-145 POTASSIUM (BEAKER) (test code = 379) 4.0 meq/L 3.5-5.1 CHLORIDE (BEAKER) (test code = 382) 102 meq/L 98-107 CO2 (BEAKER) (test code = 355) 24 meq/L 22-29 BLOOD UREA NITROGEN (BEAKER) (test code = 354) 14 mg/dL 7-21 CREATININE (BEAKER) (test code = 358) 0.97 mg/dL 0.57-1.25 GLUCOSE RANDOM (BEAKER) (test code = 652) 218 mg/dL 70-105 H CALCIUM (BEAKER) (test code = 697) 9.2 mg/dL 8.4-10.2 EGFR (BEAKER) (test code = 1092) 64 mL/min/1.73 sq m ESTIMATED GFR IS NOT ACCURATE CREATININE CLEARANCE IN PREDICTING GLOMERULAR FILTRATION RATE. ESTIMATED GFR IS NOT APPLICABLE FOR DIALYSIS PATIENTS. POCT-GLUCOSE [id number] 18:03:00* Test Item Value Reference Range Interpretation Comments POC-GLUCOSE METER (EDY) (test code = 1538) 206 mg/dL 70-110 H TESTED AT [facility] [address] [address] T4, [id number] 14:58:00* Test Item Value Reference Range Interpretation Comments FREE T4 (VIKTORIAAKER) (test code = 655) 2.11 ng/dL 0.70-1.48 H TSH/FREE T4 IF [id number] 14:26:00* Test Item Value Reference Range Interpretation Comments THYROID STIMULATING HORMONE (VIKTORIAAKER) (test code = 772) 0.13 uIU/mL 0.35-4.94 L TROPONIN [id number] 14:01:00* Test Item Value Reference Range Interpretation Comments TROPONIN I (EDY) (test code = 397) < ng/mL 0.00-0.03 Effective 04/21/2014: Reference Range [...] pers istent tachyarrhythmia.CBC W/PLT COUNT & AUTO [id number] 13:56:00* Test Item Value Reference Range Interpretation Comments WHITE BLOOD CELL COUNT (EDY) (test code = 775) 12.6 K/ L 4.0- 10.0 H RED BLOOD CELL COUNT (BEAKER) (test code = 761) 3.72 M/ L 4.00-5 .00 L HEMOGLOBIN (BEAKER) (test code = 410) 8.3 GM/DL 12.0-15.0 L HEMATOCRIT (BEAKER) (test code = 411) 28.1 % 36.0-45.0 L MEAN CORPUSCULAR VOLUME (BEAKER) (test code = 753) 75.6 fL 82. 0-99.0 L MEAN CORPUSCULAR HEMOGLOBIN (BEAKER) (test code = 751) 22.4 pg 27.0-33.0 L MEAN CORPUSCULAR HEMOGLOBIN CONC (BEAKER) (test code = 752) 29.6 GM/DL 32.0-36.0 L RED CELL DISTRIBUTION WIDTH (BEAKER) (test code = 412) 16.3 % 10.3-14.2 H PLATELET COUNT (BEAKER) (test code = 756) 510 K/CU MM 150-430 H MEAN PLATELET VOLUME (BEAKER) (test code = 754) 7.7 fL 6.5-10 .5 NUCLEATED RED BLOOD CELLS (BEAKER) (test code = 413) 0 /100 WBC 0 -0 NEUTROPHILS RELATIVE PERCENT (BEAKER) (test code = 429) 69 % LYMPHOCYTES RELATIVE PERCENT (BEAKER) (test code = 430) 22 % MONOCYTES RELATIVE PERCENT (BEAKER) (test code = 431) 7 % EOSINOPHILS RELATIVE PERCENT (BEAKER) (test code = 432) 3 % BASOPHILS RELATIVE PERCENT (BEAKER) (test code = 437) 0 % NEUTROPHILS ABSOLUTE COUNT (BEAKER) (test code = 670) 8.65 K/ L 1.80-8.00 H LYMPHOCYTES ABSOLUTE COUNT (BEAKER) (test code = 414) 2.71 K/ L 1.48-4.50 MONOCYTES ABSOLUTE COUNT (BEAKER) (test code = 415) 0.86 K/ L 0. 00-1.30 EOSINOPHILS ABSOLUTE COUNT (BEAKER) (test code = 416) 0.32 K/ L 0.00-0.50 BASOPHILS ABSOLUTE COUNT (BEAKER) (test code = 417) 0.06 K/ L 0. 00-0.20 0.00IRON, TIBC, % SAT. (WITHOUT FERRITIN)2016-09-22 13:51:00* Test Item Value Reference Range Interpretation Comments IRON (BEAKER) (test code = 547) 66 ug/dL 40-160 TOTAL IRON BINDING CAPACITY (BEAKER) (test code = 769) 454 ug/dL 250-450 H IRON % SATURATION (2) (BEAKER) (test code = 2590) 15 % 20-5 5 L [id number] 11:22:0030.5[facility] EttgscvTPZPNTVZJG8089-38-53 11:22:00 18.0[facility] ZgevrziPVZWHFLJNS3679-33-60 11:22:91895Qyfcerjo HermannHEMATOLOGY 2016-09-21 11:22:008.3[facility] OdwvhrwFPCFAHEFGV6950-16-82 11:22:008.2[facility] HtzgfwmPWVWIRMYEE1776-37-33 11:22:0027.0[facility] SbvncrtXVNXIQPMEG9179-44-50 11:22:0070.6[facility] MvldnztDOUSGAZFKB0681-51-29 11:22:00* Test Item Value Reference Range Interpretation Comments MCH (test code = MCH) 21.5 pg 27.0-31.0 [facility] QducgraZLPORDTTSV8016-29-20 11:22:0011.0[facility] HermannHEMATOLOGY 2016-09-21 11:22:003.83[facility] PjssmovILUKGJSQXD4763-70-98 11:22:001+ (09/21/16 6:22 AM)[facility] ZesjlxzXEZGZPCVDG2841-73-95 11:22:000.1[facility] Jp VWPRCABSSV3168-15-00 11:22:000.4[facility] PsipzssXHKPRXNXAU3415-77-25 11:22:000.5 [facility] BatiuxwCSYASATCDY2994-23-86 11:22:001.2[facility] HermannHEMATOLOGY 2016-09-21 11:22:002+ *ABN*(09/21/16 6:22 AM)[facility] QjnrthbIEZQKEUZFB6870-51-07 11:22:008.8[facility] HbutpclSCUWNMRETE0657-04-28 11:22:001.1[facility] [place] PXQDYFJUZW6730-99-28 11:22:003.8[facility] CkkqntcIWFAKKVAHI9388-68-71 11:22:004.2 [facility] LycnbxaGBPHSBHBZN2400-83-31 11:22:0011.3[facility] HermannHEMATOLOGY 2016-09-21 11:22:0079.6[facility] RpdxsdqOMELGNPTBR6967-54-50 11:22:00Normal (09/21/16 6:22 AM)[facility] HermannANEMIA RPOPJ0742-42-06 15:09:39193Vvyvadsz HermannANEMIA VVSKE6518-56-97 15:09:006[facility] HermannANEMIA OGGEJ4697-64-85 15:09:79714Ncwhxgim HermannANEMIA YGMWY4594-38-98 15:09:007[facility] Jp ANEMIA BYMLU7866-66-59 15:09:0033[facility] HermannANEMIA DFTBZ5563-07-20 15:09:00 454[facility] HermannANEMIA HZYPX3478-84-78 15:09:008.8[facility] HermannHEMATOLOGY 2016-09-20 15:09:008.5[facility] KnfoskcNSFAJNMLBR3198-26-84 15:09:0027.7[facility] VegapdlYGRNMBOAKE0193-51-97 15:09:001.9[facility] HermannCHEM IPHZC4058-34-09 09:39:004.0[facility] HermannCHEM RCVSR3161-48-03 09:39:0017[facility] HermannCHEM KBBEF0001-17-58 09:39:0015.0[facility] HermannCHEM QVGDB7296-98-69 09:39:000.7 [facility] HermannCHEM IAMWM6664-67-41 09:39:0090[facility] HermannCHEM PANEL 2016-09-20 09:39:002.9[facility] HermannCHEM DMYVH4604-57-14 09:39:0035[facility] HermannCHEM WGLMA8287-85-21 09:39:000.6[facility] HermannCHEM BNHSA9977-80-73 09:39:57293Gurgcyyz HermannCHEM TPCBB6075-72-56 09:39:0033[facility] HermannCHEM NSUWV0882-57-97 09:39:008.5[facility] HermannCHEM RJLVT9945-56-39 09:39:0014 [facility] HermannCHEM DMOWW4152-87-70 09:39:0099[facility] HermannCHEM PANEL 2016-09-20 09:39:0026[facility] HermannCHEM WQHGB3215-95-36 09:39:004.0[facility] HermannCHEM QGVLY8707-08-32 09:39:006.9[facility] HermannCHEM HZULB5866-60-85 09:39:69502Lmjopcsi HermannCHEM EWFSY2576-83-50 09:39:000.83[facility] HermannCHEM RXATT8197-51-33 09:39:31500Avpifhne JljgzeuHSCQNSOKEFCHO9078-66-85 09:39:00 Negative *NA*(09/20/16 4:39 AM)[facility] TtayinuLKJAFZWNAP2299-43-31 09:39:002+ *ABN*(09/20/16 4:39 AM)[facility] WcylejwMIOVEMGLCC1682-82-81 09:39:000.1[facility] FggoeitMCUOBQMDJI8210-70-45 09:39:000.8[facility] PrnmipsVURKVFDABA2442-72-18 09:39:000.4[facility] QtljbzbTITRRYWVNG2460-50-75 09:39:0023.1[facility] TKOOUKNIKK9451-09-98 09:39:0063.7[facility] MtwvtebYGSKBXGJLC2325-63-88 09:39:00 3.7[facility] NrmtpgyGNGURRHDDI9458-06-25 09:39:002.2[facility] HermannHEMATOLOGY 2016-09-20 09:39:006.1[facility] XnrqmvbJMZQSRSAII4889-40-42 09:39:001.0[facility] IltnglfNBVSBBAPDO2107-52-80 09:39:008.5[facility] SiotkppHQAJJGBSLV6705-93-53 09:39:0030.4[facility] KgmvwivFFBNGQWCGO7737-64-06 09:39:008.2[facility] Jp ZRDCOQQGSO8758-64-16 09:39:0017.6[facility] HwygoywAPEFFNGZBW4444-19-94 09:39:00* Test Item Value Reference Range Interpretation Comments MCH (test code = MCH) 21.5 pg 27.0-31.0 [facility] PwdnxcuDVDFGMVPQQ2564-61-70 09:39:63903Htdmlzuw HermannHEMATOLOGY 2016-09-20 09:39:0070.6[facility] EcscyuqDREXQFQOYY0851-36-79 09:39:0026.0[facility] HvqynmnCSHDMBUVYY9633-63-99 09:39:007.9[facility] OhhihmbQOFUBNYZQH4904-13-92 09:39:003.68[facility] GfzujdfNQGANQZWKP2118-17-46 09:39:009.6[facility] CARDIAC YTZDGAG8550-57-35 04:14:00<0.02[facility] HermannCARDIAC QDWELYB5784-47-32 04:14:0062[facility] HermannCARDIAC OHYPAHO1616-05-92 22:05:00<0.02[facility] HermannCARDIAC DACGLEO9916-49-97 22:05:0067[facility] HermannCARDIAC ENZYMES 2016-09-19 15:53:000.5[facility] HermannCARDIAC IBXIYUB8583-00-59 15:53:0025 [facility] HermannCARDIAC NLDRUDF0691-66-88 15:53:70883Fvvqjugt HermannCARDIAC OXNVBTU1085-18-91 15:53:000.8[facility] HermannCARDIAC IAVKKCC6913-97-37 15:53:00< 0.02[facility] HermannCHEM MVGDY7886-94-99 15:53:0078[facility] HermannCHEM PANEL 2016-09-19 15:53:0015.0[facility] HermannCHEM BMJGS3391-05-55 15:53:0012[facility] HermannCHEM WOLVJ1161-82-31 15:53:005.0[facility] HermannCHEM NJOTE5843-23-40 15:53:57630Qlnkokxa HermannCHEM YAKSU1428-99-24 15:53:000.93[facility] HermannCHEM RMTRH9440-76-97 15:53:61375Tmzrfilj HermannCHEM WAGNE4754-75-33 15:53:0099 [facility] HermannCHEM XYJAU1749-78-34 15:53:009.0[facility] HermannCHEM PANEL 2016-09-19 15:53:0024[facility] PqqhevzCYSENYYAHB8620-02-47 15:53:002.0[facility] TreepeqPNIFYDMICL5558-65-48 15:53:000.2[facility] LzycvhwMQUWTCYZWE2849-83-01 15:53:000.1[facility] RoegymtHGBPJNPKMC7200-74-86 15:53:001+ *ABN*(09/19/16 10:53 AM)[facility] KtgjnkfLDZLTUBFJM4644-57-01 15:53:000.7[facility] HermannHEMATOLOGY 2016-09-19 15:53:009.0[facility] BkoihcfCIGEOJOAAI6684-12-45 15:53:0074.8[facility] DtyncagDPBAMEJGEB5358-29-32 15:53:0016.5[facility] BlhpdmlHCHDEARWCA6932-26-67 15:53:001.8[facility] XuysagyRWBJOSPPJD1063-94-01 15:53:006.0[facility] Jp BCXASQYVGZ5936-02-63 15:53:000.9[facility] IbgexkjAKJIRCSMSJ9004-81-46 15:53:00 0.83[facility] EiysydmCDOASSNCEZ8933-51-85 15:53:00* Test Item Value Reference Range Interpretation Comments PTT (test code = PTT) 27.6 s 22.9-35.8 [facility] BfniofjPGAEGIRVPB6241-94-31 15:53:001.02[facility] HermannHEMATOLOGY 2016-09-19 15:53:00* Test Item Value Reference Range Interpretation Comments PT (test code = PT) 13.6 s 12.0-14.7 [facility] PeeiotsSIOZDURRJT7634-72-21 15:53:0030.5[facility] HermannHEMATOLOGY 2016-09-19 15:53:0018.3[facility] QepoqdzDQJLBZGMXY8037-61-03 15:53:70185Xymezxcr MvmfvuxWHYDEKDUOU3024-92-60 15:53:008.5[facility] GywcohjGBWFMRORIE2151-99-67 15:53:004.15[facility] QgtavkkQDASLHDCCR2260-26-51 15:53:0012.0[facility] EAKKWSHGCB4384-94-66 15:53:0071.0[facility] VgdbyxbAWZUURMZQK3669-28-99 15:53:00* Test Item Value Reference Range Interpretation Comments MCH (test code = MCH) 21.6 pg 27.0-31.0 [facility] ZXMUCDD5440-38-74 10:34:00* Test Item Value Reference Range Interpretation Comments CULTURE (BEAKER) (test code = 1095) ESCHERICHIA COLI A >100,000 col/mL Escherichia coli Amikacin (test code = 1) S Ampicillin + Sulbactam (test code = 6) S Aztreonam (test code = 32) S Cefepime (test code = 51) S Cefoxitin (test code = 68) S Ceftazidime (test code = 27) S Ceftriaxone (test code = 52) S Ertapenem (test code = 38) S Gentamicin (test code = 18) S Levofloxacin (test code = 22) S Meropenem (test code = 34) S Nitrofurantoin (test code = 23) R Piperacillin + Tazobactam (test code = 29) S Tetracycline (test code = 2) R Tobramycin (test code = 25) S Trimethoprim + Sulfamethoxazole (test code = 47) R 10-19,000 col/mL skin floraPOCT-GLUCOSE PWMLX9513-96-31 13:27:00* Test Item Value Reference Range Interpretation Comments POC-GLUCOSE METER (BEAKER) (test code = 1538) 236 mg/dL 70-110 H TESTED AT [facility] [address] [address] POCT-GLUCOSE [id number] 08:18:00* Test Item Value Reference Range Interpretation Comments POC-GLUCOSE METER (BEAKER) (test code = 1538) 233 mg/dL 70-110 H TESTED AT [place] [id number] [place] [address] BASIC METABOLIC [id number] 07:06:00* Test Item Value Reference Range Interpretation Comments SODIUM (BEAKER) (test code = 381) 136 meq/L 136-145 POTASSIUM (BEAKER) (test code = 379) 4.3 meq/L 3.5-5.1 CHLORIDE (BEAKER) (test code = 382) 101 meq/L 98-107 CO2 (BEAKER) (test code = 355) 24 meq/L 22-29 BLOOD UREA NITROGEN (BEAKER) (test code = 354) 15 mg/dL 7-21 CREATININE (BEAKER) (test code = 358) 0.91 mg/dL 0.57-1.25 GLUCOSE RANDOM (BEAKER) (test code = 652) 216 mg/dL 70-105 H CALCIUM (BEAKER) (test code = 697) 8.7 mg/dL 8.4-10.2 EGFR (BEAKER) (test code = 1092) 69 mL/min/1.73 sq m ESTIMATED GFR IS NOT ACCURATE CREATININE CLEARANCE IN PREDICTING GLOMERULAR FILTRATION RATE. ESTIMATED GFR IS NOT APPLICABLE FOR DIALYSIS PATIENTS. CBC W/PLT COUNT & AUTO PAEZHDSXPIAQ9356-26-40 06:42:00* Test Item Value Reference Range Interpretation Comments WHITE BLOOD CELL COUNT (BEAKER) (test code = 775) 11.7 K/ L 4.0- 10.0 H RED BLOOD CELL COUNT (BEAKER) (test code = 761) 3.62 M/ L 4.00-5 .00 L HEMOGLOBIN (BEAKER) (test code = 410) 8.6 GM/DL 12.0-15.0 L HEMATOCRIT (BEAKER) (test code = 411) 27.8 % 36.0-45.0 L MEAN CORPUSCULAR VOLUME (BEAKER) (test code = 753) 77.0 fL 82. 0-99.0 L MEAN CORPUSCULAR HEMOGLOBIN (BEAKER) (test code = 751) 23.8 pg 27.0-33.0 L MEAN CORPUSCULAR HEMOGLOBIN CONC (BEAKER) (test code = 752) 30.8 GM/DL 32.0-36.0 L RED CELL DISTRIBUTION WIDTH (BEAKER) (test code = 412) 16.6 % 10.3-14.2 H PLATELET COUNT (BEAKER) (test code = 756) 456 K/CU MM 150-430 H MEAN PLATELET VOLUME (BEAKER) (test code = 754) 8.1 fL 6.5-10 .5 NUCLEATED RED BLOOD CELLS (BEAKER) (test code = 413) 0 /100 WBC 0 -0 NEUTROPHILS RELATIVE PERCENT (BEAKER) (test code = 429) 70 % LYMPHOCYTES RELATIVE PERCENT (BEAKER) (test code = 430) 21 % MONOCYTES RELATIVE PERCENT (BEAKER) (test code = 431) 6 % EOSINOPHILS RELATIVE PERCENT (BEAKER) (test code = 432) 3 % BASOPHILS RELATIVE PERCENT (BEAKER) (test code = 437) 1 % NEUTROPHILS ABSOLUTE COUNT (BEAKER) (test code = 670) 8.19 K/ L 1.80-8.00 H LYMPHOCYTES ABSOLUTE COUNT (BEAKER) (test code = 414) 2.47 K/ L 1.48-4.50 MONOCYTES ABSOLUTE COUNT (BEAKER) (test code = 415) 0.68 K/ L 0. 00-1.30 EOSINOPHILS ABSOLUTE COUNT (BEAKER) (test code = 416) 0.34 K/ L 0.00-0.50 BASOPHILS ABSOLUTE COUNT (BEAKER) (test code = 417) 0.06 K/ L 0. 00-0.20 0.00POCT-GLUCOSE [id number] 21:17:00* Test Item Value Reference Range Interpretation Comments POC-GLUCOSE METER (BEAKER) (test code = 1538) 273 mg/dL 70-110 H TESTED AT [place] [id number] [place] [address] POCT-GLUCOSE [id number] 17:35:00* Test Item Value Reference Range Interpretation Comments POC-GLUCOSE METER (BEAKER) (test code = 1538) 246 mg/dL 70-110 H TESTED AT [address] [address] URINALYSIS W/ [id number] 15:03:00* Test Item Value Reference Range Interpretation Comments COLOR (BEAKER) (test code = 470) [place] CLARITY (BEAKER) (test code = 469) Hazy SPECIFIC GRAVITY UA (BEAKER) (test code = 468) 1.010 1.001-1 .035 PH UA (BEAKER) (test code = 467) 6.5 5.0-8.0 PROTEIN UA (BEAKER) (test code = 464) 100 mg/dL Negative A GLUCOSE UA (BEAKER) (test code = 365) Negative Negative KETONES UA (BEAKER) (test code = 371) Negative Negative BILIRUBIN UA (BEAKER) (test code = 462) Negative Negative BLOOD UA (BEAKER) (test code = 461) Large Negative A NITRITE UA (BEAKER) (test code = 465) Positive Negative A LEUKOCYTE ESTERASE UA (BEAKER) (test code = 466) Small Negat juan A UROBILINOGEN UA (BEAKER) (test code = 463) 0.2 mg/dL 0.2-1.0 RBC UA (BEAKER) (test code = 519) > /HPF WBC UA (BEAKER) (test code = 520) 1 /HPF SQUAMOUS EPITHELIAL (BEAKER) (test code = 516) 2 /HPF SOURCE(BEAKER) (test code = 2795) CBC W/PLT COUNT & AUTO [id number] 13:52:00* Test Item Value Reference Range Interpretation Comments WHITE BLOOD CELL COUNT (BEAKER) (test code = 775) 12.4 K/ L 4.0- 10.0 H RED BLOOD CELL COUNT (BEAKER) (test code = 761) 3.84 M/ L 4.00-5 .00 L HEMOGLOBIN (BEAKER) (test code = 410) 9.0 GM/DL 12.0-15.0 L HEMATOCRIT (BEAKER) (test code = 411) 30.0 % 36.0-45.0 L MEAN CORPUSCULAR VOLUME (BEAKER) (test code = 753) 78.0 fL 82. 0-99.0 L MEAN CORPUSCULAR HEMOGLOBIN (BEAKER) (test code = 751) 23.4 pg 27.0-33.0 L MEAN CORPUSCULAR HEMOGLOBIN CONC (BEAKER) (test code = 752) 30.0 GM/DL 32.0-36.0 L RED CELL DISTRIBUTION WIDTH (BEAKER) (test code = 412) 17.6 % 10.3-14.2 H PLATELET COUNT (BEAKER) (test code = 756) 461 K/CU MM 150-430 H MEAN PLATELET VOLUME (BEAKER) (test code = 754) 8.0 fL 6.5-10 .5 NUCLEATED RED BLOOD CELLS (BEAKER) (test code = 413) 0 /100 WBC 0 -0 NEUTROPHILS RELATIVE PERCENT (BEAKER) (test code = 429) 68 % LYMPHOCYTES RELATIVE PERCENT (BEAKER) (test code = 430) 22 % MONOCYTES RELATIVE PERCENT (BEAKER) (test code = 431) 6 % EOSINOPHILS RELATIVE PERCENT (BEAKER) (test code = 432) 2 % BASOPHILS RELATIVE PERCENT (BEAKER) (test code = 437) 1 % NEUTROPHILS ABSOLUTE COUNT (BEAKER) (test code = 670) 8.44 K/ L 1.80-8.00 H LYMPHOCYTES ABSOLUTE COUNT (BEAKER) (test code = 414) 2.78 K/ L 1.48-4.50 MONOCYTES ABSOLUTE COUNT (BEAKER) (test code = 415) 0.78 K/ L 0. 00-1.30 EOSINOPHILS ABSOLUTE COUNT (BEAKER) (test code = 416) 0.30 K/ L 0.00-0.50 BASOPHILS ABSOLUTE COUNT (BEAKER) (test code = 417) 0.13 K/ L 0. 00-0.20 0.17BLBMUFJF5100-39-58 13:50:00* Test Item Value Reference Range Interpretation Comments FERRITIN (BEAKER) (test code = 361) 9 ng/mL 5-275 Effective 04/21/2014: Reference Range ChangeNew: Male 5-275 Previous: Male 22-322 Female 5-275 Female 10-291 POCT-GLUCOSE METER 2016-08-27 11:48:00* Test Item Value Reference Range Interpretation Comments POC-GLUCOSE METER (BEAKER) (test code = 1538) 205 mg/dL 70-110 H TESTED AT [facility] [address] [place] [address] TROPONIN [id number] 11:25:00* Test Item Value Reference Range Interpretation Comments TROPONIN I (BEAKER) (test code = 397) 1.19 ng/mL 0.00-0.03 HH Effective 04/21/2014: Reference Range ChangeNew: 0.00-0.03 Previous [...] 11:23:00 * Test Item Value Reference Range Interpretation Comments IRON (BEAKER) (test code = 547) 16 ug/dL 40-160 L TOTAL IRON BINDING CAPACITY (BEAKER) (test code = 769) 499 ug/dL 250-450 H IRON % SATURATION (2) (BEAKER) (test code = 2590) 3 % 20-5 5 L B-TYPE NATRIURETIC FACTOR (BNP)2016-08-27 11:14:00* Test Item Value Reference Range Interpretation Comments B-TYPE NATRIURETIC PEPTIDE (BEAKER) (test code = 700) 109 pg/mL 0-100 H BASIC METABOLIC [id number] 11:05:00* Test Item Value Reference Range Interpretation Comments SODIUM (BEAKER) (test code = 381) 135 meq/L 136-145 L POTASSIUM (BEAKER) (test code = 379) 4.2 meq/L 3.5-5.1 CHLORIDE (BEAKER) (test code = 382) 102 meq/L 98-107 CO2 (BEAKER) (test code = 355) 21 meq/L 22-29 L BLOOD UREA NITROGEN (BEAKER) (test code = 354) 15 mg/dL 7-21 CREATININE (BEAKER) (test code = 358) 0.95 mg/dL 0.57-1.25 GLUCOSE RANDOM (BEAKER) (test code = 652) 203 mg/dL 70-105 H CALCIUM (BEAKER) (test code = 697) 8.6 mg/dL 8.4-10.2 EGFR (BEAKER) (test code = 1092) 66 mL/min/1.73 sq m ESTIMATED GFR IS NOT ACCURATE CREATININE CLEARANCE IN PREDICTING GLOMERULAR FILTRATION RATE. ESTIMATED GFR IS NOT APPLICABLE FOR DIALYSIS PATIENTS. PLATELET AGGREGATION: FUNCTION [id number] 08:37:00* Test Item Value Reference Range Interpretation Comments WEAK ADP RESULT(BEAKER) (test code = 2135) < % 60-91 L PLATELET FUNCTION SCREEN INTERP (BEAKER) (test code = 2173) 0-39% indicates marked platelet dysfunction [id number] (BEAKER) (test code = 2622) Fatuma Mitchell MD (electronic signature) PLATELET COUNT AGG (BEAKER) (test code = 2656) 439 K/CU MM 150-430 H PLATELET AGGREGATION: FUNCTION [id number] 08:36:00* Test Item Value Reference Range Interpretation Comments WEAK ADP RESULT(BEAKER) (test code = 2135) 92 % 60-91 H PLATELET FUNCTION SCREEN INTERP (BEAKER) (test code = 2173) 60-100% indicates normal platelet function [id number] (BEAKER) (test code = 2622) Fatuma Mitchell MD (electronic signature) PLATELET COUNT AGG (BEAKER) (test code = 2656) 503 K/CU MM 150-430 H POCT-GLUCOSE [id number] 07:43:00* Test Item Value Reference Range Interpretation Comments POC-GLUCOSE METER (BEAKER) (test code = 1538) 246 mg/dL 70-110 H TESTED AT [address] [address] RAPID DRUG SCREEN, [id number] 05:48:00* Test Item Value Reference Range Interpretation Comments BARBITURATE URINE (BEAKER) (test code = 725) Negative Negative BENZODIAZEPINE SCREEN URINE (BEAKER) (test code = 726) Positive Negative A COCAINE (METAB.) SCREEN (BEAKER) (test code = 1164) Negative Ne gative METHADONE SCREEN (BEAKER) (test code = 1436) Negative Negative OPIATE SCREEN URINE (BEAKER) (test code = 734) Positive Negativ e A CANNABINOID SCREEN URINE (BEAKER) (test code = 727) Negative Ne gative AMPH/METHAMPH SCREEN (BEAKER) (test code = 1438) Negative Negat juan PHENCYCLIDINE SCREEN URINE (BEAKER) (test code = 608) Negative Negative OXYCODONE SCREEN URINE (BEAKER) (test code = 2761) Negative Neg ative DRUG CUTOFF CONC.Cocaine 300 ng/mL Cannabinoid 50 ng/mL Benzodiazepine 200 ng/mLBarbiturate 200 ng/mLPh encyclidine 25 ng/mLOpiate 300 ng/mLMethadone 300 ng/mLAmphetamine/ 1000 ng/mL MethamphetamineOxycodone 300 ng/[id number] 04:31:00* Test Item Value Reference Range Interpretation Comments MAGNESIUM (BEAKER) (test code = 627) 1.9 mg/dL 1.6-2.6 POCT-GLUCOSE [id number] 17:40:00* Test Item Value Reference Range Interpretation Comments POC-GLUCOSE METER (BEAKER) (test code = 1538) 198 mg/dL 70-110 H TESTED AT [address] [address] POCT-GLUCOSE [id number] 13:02:00* Test Item Value Reference Range Interpretation Comments POC-GLUCOSE METER (BEAKER) (test code = 1538) 243 mg/dL 70-110 H TESTED AT [facility] [address] [address] HEMOGLOBIN [id number] 08:20:00* Test Item Value Reference Range Interpretation Comments HEMOGLOBIN A1C (BEAKER) (test code = 368) 9.8 % 4.3-6.1 H POCT-GLUCOSE [id number] 07:37:00* Test Item Value Reference Range Interpretation Comments POC-GLUCOSE METER (BEAKER) (test code = 1538) 205 mg/dL 70-110 H TESTED AT [facility] [address] [address] T4, [id number] 06:35:00* Test Item Value Reference Range Interpretation Comments FREE T4 (BEAKER) (test code = 655) 0.57 ng/dL 0.70-1.48 L TSH/FREE T4 IF [id number] 05:48:00* Test Item Value Reference Range Interpretation Comments THYROID STIMULATING HORMONE (BEAKER) (test code = 772) 14.85 uIU/mL 0.35-4.94 H TROPONIN [id number] 05:40:00* Test Item Value Reference Range Interpretation Comments TROPONIN I (BEAKER) (test code = 397) 1.02 ng/mL 0.00-0.03 HH Effective 04/21/2014: Reference Range ChangeNew: 0.00-0.03 Previous [...] pers istent tachyarrhythmia.CREATINE KINASE (CK), TOTAL AND [id number] 05:35:00* Test Item Value Reference Range Interpretation Comments CREATINE KINASE TOTAL (BEAKER) (test code = 380) 272 U/L 29-20 0 H CREATINE KINASE-MB (BEAKER) (test code = 750) 4.7 ng/mL 0.0-6.6 CREATINE KINASE-MB INDEX (BEAKER) (test code = 395) 1.7 % Effective 04/21/2014: CK-MB Reference Range ChangeNew: 0.0-6.6 Previous: 0.0- 4.9CK-MB Reference Range:<6.7 Normal6.7-10.0 Borderline>10.0 Abnormal [id number] 05:26:00* Test Item Value Reference Range Interpretation Comments MAGNESIUM (BEAKER) (test code = 627) 1.8 mg/dL 1.6-2.6 BASIC METABOLIC [id number] 05:26:00* Test Item Value Reference Range Interpretation Comments SODIUM (BEAKER) (test code = 381) 135 meq/L 136-145 L POTASSIUM (BEAKER) (test code = 379) 4.1 meq/L 3.5-5.1 CHLORIDE (BEAKER) (test code = 382) 99 meq/L 98-107 CO2 (BEAKER) (test code = 355) 20 meq/L 22-29 L BLOOD UREA NITROGEN (BEAKER) (test code = 354) 11 mg/dL 7-21 CREATININE (BEAKER) (test code = 358) 0.95 mg/dL 0.57-1.25 GLUCOSE RANDOM (BEAKER) (test code = 652) 237 mg/dL 70-105 H CALCIUM (BEAKER) (test code = 697) 9.1 mg/dL 8.4-10.2 EGFR (BEAKER) (test code = 1092) 66 mL/min/1.73 sq m ESTIMATED GFR IS NOT ACCURATE CREATININE CLEARANCE IN PREDICTING GLOMERULAR FILTRATION RATE. ESTIMATED GFR IS NOT APPLICABLE FOR DIALYSIS PATIENTS. LIPID [id number] 05:26:00* Test Item Value Reference Range Interpretation Comments TRIGLYCERIDES (BEAKER) (test code = 540) 186 mg/dL CHOLESTEROL (BEAKER) (test code = 631) 212 mg/dL HDL CHOLESTEROL (BEAKER) (test code = 976) 37 mg/dL LDL CHOLESTEROL CALCULATED (BEAKER) (test code = 633) 138 mg/dL Triglyceride Reference Range: Low Risk <150 Borderline 150-199 High Risk 200-499 Very High Risk >=500Cholesterol Reference Range: Low Risk <200 Borderline 200-239 High Risk >240HDL Cholesterol Reference Range: Low Risk >=60 High Risk <40LDL Cholesterol Reference Range: Optimal <100 Near Optimal 100-129 Borderline 130-159 High 160-189 Very High >=190 CBC W/PLT COUNT & AUTO YBFRULTNWVZC2646-14-09 05:24:00* Test Item Value Reference Range Interpretation Comments WHITE BLOOD CELL COUNT (BEAKER) (test code = 775) 14.6 K/ L 4.0- 10.0 H RED BLOOD CELL COUNT (BEAKER) (test code = 761) 3.76 M/ L 4.00-5 .00 L HEMOGLOBIN (BEAKER) (test code = 410) 9.0 GM/DL 12.0-15.0 L HEMATOCRIT (BEAKER) (test code = 411) 28.8 % 36.0-45.0 L MEAN CORPUSCULAR VOLUME (BEAKER) (test code = 753) 76.8 fL 82. 0-99.0 L MEAN CORPUSCULAR HEMOGLOBIN (BEAKER) (test code = 751) 23.9 pg 27.0-33.0 L MEAN CORPUSCULAR HEMOGLOBIN CONC (BEAKER) (test code = 752) 31.1 GM/DL 32.0-36.0 L RED CELL DISTRIBUTION WIDTH (BEAKER) (test code = 412) 16.4 % 10.3-14.2 H PLATELET COUNT (BEAKER) (test code = 756) 473 K/CU MM 150-430 H MEAN PLATELET VOLUME (BEAKER) (test code = 754) 7.9 fL 6.5-10 .5 NUCLEATED RED BLOOD CELLS (BEAKER) (test code = 413) 0 /100 WBC 0 -0 NEUTROPHILS RELATIVE PERCENT (BEAKER) (test code = 429) 76 % LYMPHOCYTES RELATIVE PERCENT (BEAKER) (test code = 430) 18 % MONOCYTES RELATIVE PERCENT (BEAKER) (test code = 431) 5 % EOSINOPHILS RELATIVE PERCENT (BEAKER) (test code = 432) 1 % BASOPHILS RELATIVE PERCENT (BEAKER) (test code = 437) 1 % NEUTROPHILS ABSOLUTE COUNT (BEAKER) (test code = 670) 11.10 K/ L 1.80-8.00 H LYMPHOCYTES ABSOLUTE COUNT (BEAKER) (test code = 414) 2.59 K/ L 1.48-4.50 MONOCYTES ABSOLUTE COUNT (BEAKER) (test code = 415) 0.76 K/ L 0. 00-1.30 EOSINOPHILS ABSOLUTE COUNT (BEAKER) (test code = 416) 0.08 K/ L 0.00-0.50 BASOPHILS ABSOLUTE COUNT (BEAKER) (test code = 417) 0.09 K/ L 0. 00-0.20 0.00TROPONIN [id number] 22:51:00* Test Item Value Reference Range Interpretation Comments TROPONIN I (BEAKER) (test code = 397) 0.39 ng/mL 0.00-0.03 HH Effective 04/21/2014: Reference Range ChangeNew: 0.00-0.03 Previous [...] pers istent tachyarrhythmia.CREATINE KINASE (CK), TOTAL AND [id number] 22:43:00* Test Item Value Reference Range Interpretation Comments CREATINE KINASE TOTAL (BEAKER) (test code = 380) 282 U/L 29-20 0 H CREATINE KINASE-MB (BEAKER) (test code = 750) 3.1 ng/mL 0.0-6.6 CREATINE KINASE-MB INDEX (BEAKER) (test code = 395) 1.1 % Effective 04/21/2014: CK-MB Reference Range ChangeNew: 0.0-6.6 Previous: 0.0- 4.9CK-MB Reference Range:<6.7 Normal6.7-10.0 Borderline>10.0 Abnormal B-TYPE NATRIURETIC FACTOR (BNP)2016-08-25 22:43:00* Test Item Value Reference Range Interpretation Comments B-TYPE NATRIURETIC PEPTIDE (BEAKER) (test code = 700) 267 pg/mL 0-100 H [id number] 22:36:00* Test Item Value Reference Range Interpretation Comments MAGNESIUM (BEAKER) (test code = 627) 1.7 mg/dL 1.6-2.6 C-REACTIVE [id number] 22:36:00* Test Item Value Reference Range Interpretation Comments C-REACTIVE PROTEIN (BEAKER) (test code = 676) 1.78 mg/dL 0.00-0.5 0 H CBC (HEMOGRAM ONLY)2016-08-25 22:25:00* Test Item Value Reference Range Interpretation Comments WHITE BLOOD CELL COUNT (BEAKER) (test code = 775) 18.1 K/ L 4.0- 10.0 H RED BLOOD CELL COUNT (BEAKER) (test code = 761) 4.20 M/ L 4.00-5 .00 HEMOGLOBIN (BEAKER) (test code = 410) 9.8 GM/DL 12.0-15.0 L HEMATOCRIT (BEAKER) (test code = 411) 32.6 % 36.0-45.0 L MEAN CORPUSCULAR VOLUME (BEAKER) (test code = 753) 77.5 fL 82. 0-99.0 L MEAN CORPUSCULAR HEMOGLOBIN (BEAKER) (test code = 751) 23.3 pg 27.0-33.0 L MEAN CORPUSCULAR HEMOGLOBIN CONC (BEAKER) (test code = 752) 30.0 GM/DL 32.0-36.0 L RED CELL DISTRIBUTION WIDTH (BEAKER) (test code = 412) 17.3 % 10.3-14.2 H PLATELET COUNT (BEAKER) (test code = 756) 491 K/CU MM 150-430 H MEAN PLATELET VOLUME (BEAKER) (test code = 754) 7.8 fL 6.5-10 .5 NUCLEATED RED BLOOD CELLS (BEAKER) (test code = 413) 0 /100 WBC 0 -0 0.60TRTQ-ORE3415-15-24 19:13:00* Test Item Value Reference Range Interpretation Comments ACTIVATED CLOTTING TIME (BEAKER) (test code = 441) 276 sec TESTED AT [facility] [address] [address] POCT-GLUCOSE [id number] 17:09:00* Test Item Value Reference Range Interpretation Comments POC-GLUCOSE METER (BEAKER) (test code = 1538) 158 mg/dL 70-110 H TESTED AT [facility] [address] [address] TROPONIN [id number] 14:00:00* Test Item Value Reference Range Interpretation Comments TROPONIN I (BEAKER) (test code = 397) 0.19 ng/mL 0.00-0.03 H Effective 04/21/2014: Reference Range ChangeNew: 0.00-0.03 Previous [...] neurological disease, and pers istent tachyarrhythmia.COMPREHENSIVE METABOLIC [id number] 13:53:00* Test Item Value Reference Range Interpretation Comments TOTAL PROTEIN (BEAKER) (test code = 770) 8.5 gm/dL 6.0-8.3 H ALBUMIN (BEAKER) (test code = 1145) 4.5 g/dL 3.5-5.0 ALKALINE PHOSPHATASE (BEAKER) (test code = 346) 149 U/L 40-150 BILIRUBIN TOTAL (BEAKER) (test code = 377) 0.2 mg/dL 0.2-1.2 SODIUM (BEAKER) (test code = 381) 137 meq/L 136-145 POTASSIUM (BEAKER) (test code = 379) 4.1 meq/L 3.5-5.1 CHLORIDE (BEAKER) (test code = 382) 99 meq/L 98-107 CO2 (BEAKER) (test code = 355) 25 meq/L 22-29 BLOOD UREA NITROGEN (BEAKER) (test code = 354) 11 mg/dL 7-21 CREATININE (BEAKER) (test code = 358) 0.96 mg/dL 0.57-1.25 GLUCOSE RANDOM (BEAKER) (test code = 652) 174 mg/dL 70-105 H CALCIUM (BEAKER) (test code = 697) 9.7 mg/dL 8.4-10.2 AST (SGOT) (BEAKER) (test code = 353) 105 U/L 5-34 H ALT (SGPT) (BEAKER) (test code = 347) 79 U/L 6-55 H EGFR (BEAKER) (test code = 1092) 65 mL/min/1.73 sq m ESTIMATED GFR IS NOT ACCURATE CREATININE CLEARANCE IN PREDICTING GLOMERULAR FILTRATION RATE. ESTIMATED GFR IS NOT APPLICABLE FOR DIALYSIS PATIENTS. CREATINE KINASE (CK)2016-08-25 13:53:00* Test Item Value Reference Range Interpretation Comments CREATINE KINASE TOTAL (BEAKER) (test code = 380) 351 U/L 29-20 0 H CBC W/PLT COUNT & AUTO LRUROPWZJWME2568-80-12 13:45:00* Test Item Value Reference Range Interpretation Comments WHITE BLOOD CELL COUNT (BEAKER) (test code = 775) 12.3 K/ L 4.0- 10.0 H RED BLOOD CELL COUNT (BEAKER) (test code = 761) 4.28 M/ L 4.00-5 .00 HEMOGLOBIN (BEAKER) (test code = 410) 10.1 GM/DL 12.0-15.0 L HEMATOCRIT (BEAKER) (test code = 411) 32.9 % 36.0-45.0 L MEAN CORPUSCULAR VOLUME (BEAKER) (test code = 753) 76.8 fL 82. 0-99.0 L MEAN CORPUSCULAR HEMOGLOBIN (BEAKER) (test code = 751) 23.5 pg 27.0-33.0 L MEAN CORPUSCULAR HEMOGLOBIN CONC (BEAKER) (test code = 752) 30.6 GM/DL 32.0-36.0 L RED CELL DISTRIBUTION WIDTH (BEAKER) (test code = 412) 17.2 % 10.3-14.2 H PLATELET COUNT (BEAKER) (test code = 756) 531 K/CU MM 150-430 H MEAN PLATELET VOLUME (BEAKER) (test code = 754) 7.7 fL 6.5-10 .5 NUCLEATED RED BLOOD CELLS (BEAKER) (test code = 413) 0 /100 WBC 0 -0 NEUTROPHILS RELATIVE PERCENT (BEAKER) (test code = 429) 64 % LYMPHOCYTES RELATIVE PERCENT (BEAKER) (test code = 430) 26 % MONOCYTES RELATIVE PERCENT (BEAKER) (test code = 431) 6 % EOSINOPHILS RELATIVE PERCENT (BEAKER) (test code = 432) 3 % BASOPHILS RELATIVE PERCENT (BEAKER) (test code = 437) 1 % NEUTROPHILS ABSOLUTE COUNT (BEAKER) (test code = 670) 7.87 K/ L 1.80-8.00 LYMPHOCYTES ABSOLUTE COUNT (BEAKER) (test code = 414) 3.18 K/ L 1.48-4.50 MONOCYTES ABSOLUTE COUNT (BEAKER) (test code = 415) 0.79 K/ L 0. 00-1.30 EOSINOPHILS ABSOLUTE COUNT (BEAKER) (test code = 416) 0.32 K/ L 0.00-0.50 BASOPHILS ABSOLUTE COUNT (BEAKER) (test code = 417) 0.10 K/ L 0. 00-0.20 0.36E-RNJBD6538-26-24 13:35:00* Test Item Value Reference Range Interpretation Comments D-DIMER QUANTITATIVE (BEAKER) (test code = 671) 0.31 MG/L FEU <0.50 Intended Use: The D-Dimer Assay can be used to aid in the diagnosis of Deep Vein Thrombosis (DVT) and Pulmonary Embolism Disease (PED).In patients with low pre- test probability, various studies concerning STA Liatest D-dimer test have repor eugene that with a cutoff value of 0.50 MG/L FEU, the Negative Predictive Value (DIRECTOR CHECK V) regarding the exclusion of thrombosis is within 95-100% range.BLOOD BANK NRJOREB5287-08-79 21:32:00Negative (01/12/16 4:32 PM)[facility] CNKNUTI4649-90-45 21:32:002.3[facility] CWXCHVU4158-38-65 21:32:00 352[facility] MYOQXIH9322-20-99 21:32:00<0.02[facility] CARDIAC GXXTEFQ8294-14-61 21:32:000.7[facility]annCHEM OLFGZ2756-76-34 21:32:93625Cujiykat HermannCHEM YPTTD4046-28-34 21:32:0068[facility]annCHEM USCRF9803-36-31 21:32:0010[facility]annCHE[facility] TMCGT1584-53-55 21:32:31716 [facility]annCHE[facility] OZXVG1508-13-11 21:32:0024[facility]annCHEM PANEL 2016-01-12 21:32:0098[facility]annCHEM GUOOV5270-95-15 21:32:003.7[facility]annCHEM TQEMN7475-65-99 21:32:49155Oudumsxf HermannCHEM OSYKJ5092-64-39 21:32:001.04[facility]annCHEM GPYMC4153-79-66 21:32:003.5[facility]annCHEM JEAZY7612-71-33 21:32:007.5[facility]annCHEM KSDTM0469-25-62 21:32:007.7 [facility]annCHE[facility] RJYKB8452-26-07 21:32:0013.7[facility]annCHEM PANEL 2016-01-12 21:32:000.3[facility]annCHEM QQZUH6969-45-62 21:32:66937Tciurjry HermannCHEM AKEQB0578-68-40 21:32:000.9[facility]annCHEM QPQBL0641-85-91 21:32:004.0[facility]annCHEM FVPLS3974-20-74 21:32:0010[facility]annCHEM ONNXX9334-15-73 21:32:26874Niqkeqra HermannCHEM TKMTV7442-00-38 21:32:97642 [facility]annCHE[facility] QVJWP8244-89-37 21:32:001.8[facility]annHEMATOLOGY 2016-01-12 21:32:86811Dainzlza OdhxuwuICJGONYNTP5689-05-92 21:32:008.2[facility] QfznvyxWSFODWWCAX8566-67-81 21:32:006.4[facility] LdpsivpQCQBQFLJLG9937-13-51 21:32:0031.1[facility] QuxvxrvTZFDFGZEYF5572-48-51 21:32:0018.4[facility] IMDSJDWRWF2803-28-60 21:32:0026.9[facility] UkzsllzFGXJUAIKZN1880-29-01 21:32:00 73.8[facility] GxevernMHVDYXIAOE5020-53-55 21:32:00* Test Item Value Reference Range Interpretation Comments MCH (test code = MCH) 23.0 pg 27.0-31.0 [facility] GtypzrbWSVCKXFHVR2108-50-26 21:32:003.65[facility]annHEMATOLOGY 2016-01-12 21:32:008.4[facility] JpnvwkvWADMAHLHTZ5387-48-99 21:32:001+ *ABN*(01/12/16 4:32 PM)[facility] XbhvwcnTAMUOQIWMK2615-64-48 21:32:004.7[facility] VfrvhfeVXAMHSLDKN1129-90-18 21:32:001.2[facility] HiypiajWCSJTFNQLY6864-70-14 21:32:000.3[facility] WpixvbyAKBGQRQJUM7154-42-43 21:32:000.2[facility] Jp XSGADNYFTF1071-97-38 21:32:000.1[facility] HeuphhaAXWGTYMZQY8384-33-42 21:32:00 72.9[facility] SdudwppHUNMNSIOMT1190-45-32 21:32:0018.0[facility]annHEMATOLOGY 2016-01-12 21:32:004.8[facility] SuxbdwiSJBCDBIPWD4716-66-39 21:32:002.9[facility] OzvdjbxJGBTMHMTPS2544-46-42 21:32:001.4[facility]annUR[facility] AND YBGPF4954-48-55 21:32:00Marked *ABN*(01/12/16 4:32 PM)[facility] HJPRB3200-21-61 21:32:00Yellow *NA*(01/12/16 4:32 PM)[facility] CCRZB8486-63-37 21:32:005[facility] KVHHT1438-89-07 21:32:0014[facility]INE AND LZYIU5381-63-39 21:32:001.020[facility] GSSVP0002-93-01 21:32:006.0[facility] AND JSUSS7935-76-89 21:32:00Moderate *ABN*(01/12/16 4:32 PM)[facility] LQBBA8551-82-33 21:32:00Positive *ABN*(01/12/16 4:32 PM)[facility] VCUOH3887-60-44 21:32:00Small *ABN*(01/12/16 4:32 PM)[facility] BBPTB4634-00-09 21:32:00Negative *NA*(01/12/16 4:32 PM)[facility]ann[facility] TBNZ7453-17-79 21:32:00Negative (01/12/16 4:32 PM)[facility]annCARDIAC TINOBNR5876-68-88 14:00:84532Ruvywnik IsnjduqZZZLQJYAPHHG9280-31-15 14:00:0013.3[facility] AeeuymjOYYSQNJEZFVV8296-68-23 14:00:0058[facility] UztscwqJVRPFQSKEJKX9847-86-64 14:00:0028[facility] ZQASHYTFLAQQ7685-03-04 14:00:008.4[facility] RzipsrxIBUUEIRDQWJN0458-17-65 14:00:001.19[facility] VeawyvmXLJHYOWBFHSG1843-40-27 14:00:008[facility] DQUBQHGQFJSE9717-40-35 14:00:0099[facility] MsisudtQSNPDHOSCYJT8075-38-16 14:00:00 4.3[facility] SqzaipbVFCBQKVAQYTC7728-08-33 14:00:74543Reoymshg Jp UWTPOCFMXLWY3430-91-86 14:00:60771Vvvasxni VvzusnmIAHEHUEIWX5548-08-06 14:00:00 8.1[facility] TxldjrdVNUPDBUXGA8085-51-26 14:00:97961Dlokicit HermannHEMATOLOGY 2015-09-16 14:00:0023.6[facility] OkwupvyDJJCHYMJYT9031-67-41 14:00:0029.4[facility] CpdgjaaHNBGNINUCK5351-49-56 14:00:00* Test Item Value Reference Range Interpretation Comments MCH (test code = MCH) 21.4 pg 27.0-31.0 [facility] BudhygjSBECTYRCXP9479-02-85 14:00:004.67[facility]annHEMATOLOGY 2015-09-16 14:00:0012.5[facility] IigsuqzGGRWUCQDFK6831-63-46 14:00:0073.0[facility] DqrjqwqFJHSGKDIPI0780-89-31 14:00:0034.1[facility] CwusyznLHEDAVEHNQ8306-91-19 14:00:0010.0[facility] IulzlxsIYEPCOWNHJ5052-27-25 14:00:001.9[facility] GNNDOLVMXD1893-35-46 14:00:005.0[facility] BbmmtygLEYETACSQJ5578-82-98 14:00:004.2 [facility] SfqqdyiHVVVAVQEVH6656-72-85 14:00:0021.6[facility]annHEMATOLOGY 2015-09-16 14:00:0067.3[facility] OmyfynkCPNSZALGUD1128-59-84 14:00:002+ (09/16/15 9:00 AM)[facility] OjaaqvvGEXEJYHMRS3862-97-01 14:00:000.6[facility]p XGYFIRRLUE9703-77-37 14:00:002.7[facility] SuiwzldXSSGWCEXVK1420-35-97 14:00:000.5 [facility] TqibypmCZUHAVKMHJ8803-67-78 14:00:008.4[facility]annHEMATOLOGY 2015-09-16 14:00:000.2[facility] PhxzvzjEYUBVJPPUJ3767-27-65 14:00:001+ *ABN*(09/16/15 9:00 AM)[facility] JdbbwbxHKICFRBXZD8418-75-95 14:00:00Normal (09/16/15 9:00 AM)[facility] PnzibdyTRWZTLDMVE6309-87-87 00:05:0020.7[facility] DvyzyrjIKSNIMFDOP5381-84-44 00:05:007.9[facility] EqbqbqyIXLCYBDNPN7612-34-29 00:05:65675Doaqssdz AvtispeUDAMYQLISZ4723-28-72 00:05:0028.5[facility] FSGJUCKGLM1520-29-68 00:05:0025.2[facility] JucmmvhEHXRPBFHPQ8609-42-70 00:05:00 67.8[facility] NzwcqxvDFVZAXZKVM2101-24-19 00:05:00* Test Item Value Reference Range Interpretation Comments MCH (test code = MCH) 19.3 pg 27.0-31.0 [facility] MzokmtgYVDMIITTID2388-52-99 00:05:0011.2[facility]annHEMATOLOGY 2015-09-16 00:05:003.72[facility] NulqnzfJEFQJUTISQ9069-48-59 00:05:007.2[facility]annBLOOD BANK QLPDMYP4693-98-21 22:52:00Product available 1(09/15/15 5:52 PM) [facility]annANEMIA SLNXI7661-23-42 08:36:86556Nwfpbbid HermannANEMIA STUDY 2015-09-15 08:36:008.5[facility]annANEMIA IFTVL1294-22-02 08:36:66577Plswcjfv HermannANEMIA XXHKL2723-56-17 08:36:005[facility]annCARDIAC ENZYMES 2015-09-15 08:36:476286Uabhbgir HermannCHEM KBDQU9288-77-63 08:36:0060[facility]annCHEM TDMMA5069-39-76 08:36:11792Uqaezron HermannCHEM TDPXD7915-12-38 08:36:004.0[facility]annCHEM HZEVU8870-53-90 08:36:0026[facility]annCHEM FARQF4028-51-73 08:36:39654Ijxqndku HermannCHEM GODSX6935-98-75 08:36:007.9 [facility]annCHEM GXCEO3534-26-29 08:36:001.17[facility]annCHEM PANEL 2015-09-15 08:36:0013[facility]annCHEM PCDXO7156-98-59 08:36:03489Mlexcfdg HermannCHEM XEPDH6110-00-57 08:36:0012.0[facility] EawyutjKHKKCFWOFE8641-13-08 08:36:008.1[facility] YdicrmkNMKJKTHODY1599-90-53 08:36:0067.8[facility] PSJCOJXQCO4695-14-86 08:36:007.2[facility] DvkcvgiTPEYAZCYIA1209-47-49 08:36:00 3.69[facility] XdajbgrASIQMKZBCI3166-57-64 08:36:0025.0[facility]annHEMATOLOGY 2015-09-15 08:36:00* Test Item Value Reference Range Interpretation Comments MCH (test code = MCH) 19.6 pg 27.0-31.0 [facility] SfzljavQALELCFENE5609-47-28 08:36:0010.8[facility]annHEMATOLOGY 2015-09-15 08:36:01825Uezigmin LdmkqlrGWBCVFBLSE8862-56-82 08:36:0021.0[facility] YleomrpSKJXSXNWTQ2600-45-56 08:36:0028.9[facility] CzstrjpPEUEOMRCJC0534-16-94 08:36:002+ (09/15/15 3:36 AM)[facility] HanjrgyUIOEWGVNRP1501-92-78 08:36:003+ *NA*(09/15/15 3:36 AM)[facility] WujiwpwGOKPRLYACQ7647-42-06 08:36:001+ *ABN*(09/15/15 3:36 AM)[facility] NgrtydxVURNTVZTGE5481-62-55 08:36:000.5[facility] YwjreerQTILWBMVNF7288-27-03 08:36:000.4[facility] UfczyrvMNYGEZWYLX3617-66-19 08:36:0022.4[facility] RyzafdvZYRKEXXVMC0052-90-37 08:36:0069.3[facility] SVWQJVUSNG4186-34-24 08:36:00Normal (09/15/15 3:36 AM)[facility]annHEMATOLOGY 2015-09-15 08:36:004.2[facility] RujldoqJGFNRATFMP1521-71-80 08:36:003.7[facility] EcotaeyWDSTPWATWY5492-25-32 08:36:000.4[facility] EylstalBKEQPFJWQV3589-30-07 08:36:002.4[facility] OkoxnylNBLTORCMVE4018-24-21 08:36:007.5[facility]p EQNYXRISAK8629-10-45 08:36:00See Note (09/15/15 3:36 AM)[facility] QVOPT0938-79-85 01:00:00Negative (09/14/15 8:00 PM)[facility]annANEMIA STUDY 2015-09-15 00:31:004[facility]annANEMIA UQDYG4009-04-62 00:31:73888Rsnhdtow HermannANEMIA XZPAC6433-39-65 00:31:003[facility]annANEMIA NNUMM0892-27-86 00:31:09361Rkyqvkop HermannANEMIA SJVTI1855-18-96 00:31:0018[facility] BLOOD BANK JFYIPHC9144-24-99 00:31:00Negative (09/14/15 7:31 PM)[facility] URINE AND TAYVZ4919-46-68 23:54:00Yellow *NA*(09/14/15 6:54 PM)[facility] URINE AND DXZVK2042-81-22 23:54:00Slight *ABN*(09/14/15 6:54 PM)[facility] URINE AND MFMTQ7312-88-71 23:54:001.012[facility] AND FPIAI0587-28-99 23:54:006.0[facility] AND TLOMK9767-18-91 23:54:002[facility] URINE AND LHORC5604-96-73 23:54:00Small *ABN*(09/14/15 6:54 PM)[facility] URINE AND ZYXFI8095-77-73 23:54:00Negative *NA*(09/14/15 6:54 PM)[facility] URINE AND QEBVA0298-88-04 23:54:00Positive *ABN*(09/14/15 6:54 PM)[facility] KIJJQ7649-99-58 23:54:00Small *ABN*(09/14/15 6:54 PM)[facility] GELMJ4350-47-35 23:54:005[facility]annCARDIAC ENZYMES 2015-09-14 20:20:000.5[facility]annCARDIAC JYXXKNP7306-45-64 20:20:608852 [facility]CARD[facility]AC SZIBMOR5107-05-53 20:20:00<0.02[facility]annCARDIAC AHTZFZA3278-69-01 20:20:007.2[facility] HermannCHEM IZBNX0407-10-64 20:20:0046 [facility]annCHEM MMGJU2025-48-93 20:20:001.0[facility]annCHEM PANEL 2015-09-14 20:20:27204Dpgynctk HermannCHEM RHUQS0256-70-36 20:20:0010.8[facility]annCHEM VJCYF9127-08-99 20:20:004.0[facility]annCHEM XGDEE0547-23-39 20:20:0010[facility]annCHEM OQYMP5628-37-48 20:20:003.9[facility]annCHEM RPTVU6141-74-98 20:20:31624Pyqeqvaw HermannCHEM IVQOU9975-27-28 20:20:000.2 [facility]annCHEM LSALX1025-22-93 20:20:0063[facility]annCHEM PANEL 2015-09-14 20:20:0087[facility]annCHEM URMJD1171-44-89 20:20:0097[facility]annCHEM TYHRG5716-73-16 20:20:20952Pvqgojqb HermannCHEM OKGPN8716-11-80 20:20:0014[facility]annCHEM PSCJG6318-30-47 20:20:001.46[facility]annCHEM RGSNQ9638-47-01 20:20:003.8[facility] HermannCHEM FLKKA4774-11-62 20:20:008.2 [facility]annCHE[facility] XYWXO9872-88-63 20:20:007.9[facility]annCHEM PANEL 2015-09-14 20:20:0028[facility] WwqqtnnJOSQJYJEZO4297-03-93 20:20:002+ *ABN*(09/14/15 3:20 PM)[facility] GfbfcsaNBRRFCUXPL8331-14-68 20:20:001+ (09/14/15 3:20 PM)[facility] OijmwqkIBTVIPFCSN2591-72-09 20:20:006.2[facility] Jp DWGLGXTMME4266-35-35 20:20:002.9[facility] NtghstqXQJCTJQEYE1886-73-12 20:20:000.5 [facility] QdhxmgfKTWHFADHJQ3318-47-22 20:20:000.4[facility] HermannHEMATOLOGY 2015-09-14 20:20:000.2[facility] HbhaxbmVLHBTFSMWT7371-89-65 20:20:0061.3[facility] KrlfmbnCOQHFDYWVN5788-09-40 20:20:00Normal (09/14/15 3:20 PM)[facility] NUGQRCMHUB3708-44-06 20:20:0028.3[facility] MmocciaTDWGOBTZZZ9039-69-05 20:20:00 1.8[facility] HqcwlbyDIVJPLXNJV6745-95-56 20:20:004.6[facility]annHEMATOLOGY 2015-09-14 20:20:004.0[facility] AgqfwrsQQEUDXZOFI5987-70-71 20:20:00See Note (09/14/15 3:20 PM)[facility]annCHEM TSWVR8665-30-85 17:14:002.2[facility] JnaewryWFVMRCFESB5183-32-67 17:14:008.0[facility] WwpvemtMIRIBIAIPD4564-09-47 17:14:0014.6[facility] MgwwpzyVJYWCKWHED7423-57-96 17:14:004.92[facility]p NZKJOMFUNB1902-68-67 17:14:0030.1[facility] EknixrwPOCMUPNNMD9693-77-82 17:14:00 583[facility] LtyleosOFDZKDPFTI1846-37-67 17:14:0024.2[facility]annHEMATOLOGY 2014-03-20 17:14:0076.0[facility] PxxrzmqFSUZDANJFP7488-40-26 17:14:00* Test Item Value Reference Range Interpretation Comments MCH (test code = MCH) 22.9 pg 27.0-31.0 [facility] VgsopglVADZYEXUHC7079-12-52 17:14:0011.2[facility] HermannHEMATOLOGY 2014-03-20 17:14:0037.4[facility] CepoqslBRSTYMOYRO2693-44-59 17:14:0071.3[facility] WklvoxaAIUSFBAORL1763-70-62 17:14:000.3[facility] OfkikxxMZIGTJVTVU3713-08-01 17:14:000.2[facility] JbwgivqLFWHPATUWX4350-79-13 17:14:001+ *ABN*(03/20/14 12:14 PM)[facility] SxxrwgkWLTLODWCDY3496-31-13 17:14:002.6[facility]annHEMATOLOGY 2014-03-20 17:14:001.1[facility] PoiozcpGKBKINXMQX2307-33-87 17:14:007.2[facility] TbekkmnNYOCWIFGBU8649-81-26 17:14:0017.9[facility] ZzjggqsBDRFOEDIDZ4510-88-13 17:14:0010.4[facility] HhkawzkQZUMTPJGDG4092-92-81 17:14:001.4[facility] Jp RCKKNWROYC3007-20-50 17:14:002.2[facility]annCHEM KZZAT4958-66-08 08:39:00> 0.1[facility] HermannCHEM OOTSO0928-07-87 08:39:003.1[facility]annCHEM PANEL 2014-03-20 08:39:004.2[facility]annCHEM EIYSY8056-67-23 08:39:000.7[facility]annCHEM WRUFE8550-14-29 08:39:0092[facility]annCHE[facility] IWSNR9079-13-85 08:39:44962Yuymyfav HermannCHEM UBWXE2915-19-27 08:39:45106Dxrkdreq HermannCHEM EKUMS7075-93-68 08:39:000.2[facility]annCHEM IULVL2429-92-79 08:39:00<0.1 [facility]annCHE[facility] JKJJI6785-41-61 08:39:007.3[facility]annCHEM PANEL 2014-03-20 08:39:0083[facility]annCHEM LCJVE9765-82-49 08:39:003.8[facility]annCHEM BIQIP8753-38-09 08:39:85242Ymnnkopd HermannCHEM DCVNS5417-56-47 08:39:0025[facility]annCHEM QRMOJ4072-37-23 08:39:47147Hrxhlaub HermannCHEM KIIVB7014-78-38 08:39:0015[facility]annCHEM THRUA7830-95-36 08:39:008.2 [facility]annCHE[facility] SUPVG8059-07-69 08:39:000.9[facility]annCHEM PANEL 2014-03-20 08:39:10359Tysotmjf HermannCHEM CPILG7628-49-35 08:39:0014.8[facility] NvtnpveCUEVGMEQBZ2082-96-77 08:39:00064Imavzwdk HvhrvdgHUASSKQBGB1733-66-88 08:39:00* Test Item Value Reference Range Interpretation Comments MCH (test code = MCH) 23.1 pg 27.0-31.0 [facility] FcsmjcdGGSMKFEDOQ1226-37-86 08:39:0023.4[facility]annHEMATOLOGY 2014-03-20 08:39:0030.4[facility] OdtjkeeUOGGYNRVNS4863-05-68 08:39:007.9[facility] NmtrroaOYAPUOXTYW0131-70-32 08:39:0076.1[facility] UepfgxfOMZOCOVMAL6250-15-19 08:39:004.82[facility] OerjbyfWSISBOQXQQ7172-13-65 08:39:0015.2[facility] Jp NBLFMQBQMX6324-38-32 08:39:0036.6[facility] GidzonjKSMRJLIEUN0227-78-80 08:39:00 11.1[facility] LexsgzjTSOKGKMXJP4102-55-51 08:39:000.1[facility] HermannHEMATOLOGY 2014-03-20 08:39:001+ *ABN*(03/20/14 3:39 AM)[facility]annHEMATOLOGY 2014-03-20 08:39:000.3[facility] VvzwwbaKTNBSROTXN3129-15-34 08:39:001.2[facility] IlcexeuZHXLPGRUJX1427-07-85 08:39:0068.3[facility] PgvncexEHPLAFHOHS5715-78-04 08:39:0020.3[facility] JxiwonhEUFYFCBVKW0832-28-63 08:39:008.1[facility] Jp GNEXTSEBDN0092-69-75 08:39:002.3[facility] RaldkjjEQYXPRHHSK1273-33-27 08:39:00 10.4[facility] JjrnysiRDRLFHFRVR6787-57-86 08:39:001.0[facility] HermannHEMATOLOGY 2014-03-20 08:39:003.1[facility] HermannBLOOD BANK KKTJKTH1286-21-10 03:23:00 Negative (03/19/14 10:23 PM)[facility]annCHEM FATBG2426-80-32 03:23:002.3 [facility]BL[facility]OD BANK IQZIKGM0765-23-18 01:45:00Product available 1(03/19/14 8:45 PM)[facility]annCHEM ZIKZB0005-47-86 08:17:0083[facility]annCHEM KUPCJ3572-08-13 08:17:0013.6[facility]annCHEM PYQIX3183-81-99 08:17:008.9[facility]annCHEM KDXBJ7116-81-48 08:17:0027[facility]annCHEM JDXWW1239-12-62 08:17:07692Emdjmkgb HermannCHEM KJYLT3577-05-85 08:17:04155 [facility]annCHE[facility] SRCMX4885-36-31 08:17:003.6[facility]annCHEM PANEL 2014-03-19 08:17:000.9[facility] HermannCHEM QYKKU7351-67-27 08:17:0010[facility]annCHEM TUJHE7557-93-02 08:17:30457Pkmbhvzi HermannCHEM AVJHA6138-22-48 08:17:00>0.2[facility]annCHEM FYRXJ2600-52-15 08:17:98518Qshjjaui HermannCHEM OIBNE7592-47-32 08:17:01930Xwlihsal HermannCHEM XXXBX3428-37-66 08:17:003.9 [facility]annCHEM LOIKI3673-79-91 08:17:000.9[facility]annCHEM PANEL 2014-03-19 08:17:0072[facility]annCHEM WTBCS0146-80-84 08:17:003.5[facility]annCHEM JGDNE4800-87-51 08:17:007.4[facility]annCHEM GGBBL8270-61-99 08:17:00<0.1[facility]annCHEM SVXVH5125-87-21 08:17:000.3[facility] BNSTNQPVYK2069-20-51 08:17:001.0[facility] FuppvnwOVBPZLNNUE5012-35-40 08:17:000.2 [facility] FcbmmbeAPCXCPPRKA2341-83-61 08:17:001+ *ABN*(03/19/14 3:17 AM)[facility] LriffqqJIPAZCAMCS7826-84-00 08:17:000.1[facility] SknaxizKKYMPYNNSG3110-04-50 08:17:00Normal (03/19/14 3:17 AM)[facility] GyvglgcPOALOVGTQN5174-80-20 08:17:00 Normal (03/19/14 3:17 AM)[facility] OhwefpoFGBUXEKDDJ7478-02-74 08:17:005.5 [facility] JzwrlokIUDGJEOQRY5710-78-72 08:17:0074.9[facility] HermannHEMATOLOGY 2014-03-19 08:17:0017.9[facility] WayeyfnXVYADKBCIT1513-27-77 08:17:000.7[facility] PzgmcsaFIYTAHVYRF8141-81-72 08:17:000.9[facility] BftprjcMLGCPVXQLM8305-91-89 08:17:002.9[facility] MolxhiqNRGQNJTMZW8665-02-33 08:17:0012.3[facility] EXIICEIPHF9953-39-90 08:17:97499Szrjgxew PyrdypfSGFPTYFLPX5021-01-45 08:17:008.0 [facility] WpdfiygWQVWLPBAEI5347-50-48 08:17:00* Test Item Value Reference Range Interpretation Comments MCH (test code = MCH) 22.7 pg 27.0-31.0 [facility] SjgscjnQKUAESENXC2372-27-18 08:17:0074.6[facility] HermannHEMATOLOGY 2014-03-19 08:17:0035.0[facility] JeezykhSPIDGWJSFZ9608-53-32 08:17:0010.6[facility] NoergalOUIYMUKNYJ0581-63-94 08:17:0023.2[facility] AbmavxcPYYTCKEWHS1709-34-57 08:17:0030.4[facility] UpbevopYQPNZHSSTB5380-77-18 08:17:0016.4[facility] ULGPKNUPHD3761-82-65 08:17:004.69[facility] HermannURINE QXWK6009-12-65 18:52:51 Negative (03/18/14 1:52 PM)[facility] HermannCHEM DIEIA7539-04-97 08:34:0083 [facility]annCHEM IPWJV6898-93-08 08:34:008.5[facility] HermannCHEM PANEL 2014-03-18 08:34:26609Apcjuxij HermannCHEM GIEMO2420-28-60 08:34:95148Ymegluxm HermannCHEM NNQSC5025-00-28 08:34:009[facility] HermannCHEM QXGXV7677-22-91 08:34:0017.6[facility] HermannCHEM KYDHQ3772-49-51 08:34:75575Ipbawqkg HermannCHEM UBCAY6482-62-16 08:34:000.9[facility] HermannCHEM WQCVI7043-76-39 08:34:004.6 [facility]annCHEM CJDFX4163-81-59 08:34:0023[facility] HermannCHEM PANEL 2014-03-18 08:34:0045[facility] HermannCHEM GYKRR3811-46-59 08:34:000.9[facility] HermannCHEM IQLQZ4887-49-04 08:34:65090Jgiddszf HermannCHEM HMPCO8537-32-75 08:34:000.3[facility] HermannCHEM SXVFH0732-89-40 08:34:00<0.1[facility] HermannCHEM DUGUE1349-64-15 08:34:0049[facility]annCHEM SGGJU3699-70-61 08:34:00>0.2 [facility]annCHEM MWMVQ4865-54-41 08:34:003.9[facility] HermannCHEM PANEL 2014-03-18 08:34:007.3[facility] HermannCHEM AURNQ3946-34-70 08:34:003.4[facility] BqcifduKXOIHSWBMA9060-50-60 08:34:00Normal (03/18/14 3:34 AM)[facility] Jp QSKQPBCNKW9153-12-85 08:34:00Normal (03/18/14 3:34 AM)[facility] HermannLIPIDS 2014-03-17 12:04:8[facility] XwygttrKPFTLF0089-77-33 12:04:53839Kokqndvj SdvezfkZMFNTP4590-34-66 12:04:0029[facility] RmnssbxLKEJLU2580-39-93 12:04:005.76 [facility] QrjjnlhXEFRKR2505-03-83 12:04:54392Vxfgzktx OgsjlqvRQDWUQ1883-42-75 12:04:56999Zymwjgoa HermannSPECIAL FZNCSYDLW4252-28-46 12:04:008.4[facility] HermannCARDIAC BLCJOWK2522-68-46 01:27:001.5[facility] HermannCARDIAC ENZYMES 2014-03-17 01:27:00<0.02[facility]annBLOOD BANK DCKUUYK5054-36-40 23:55:00 Product available 2(03/16/14 6:55 PM)[facility] HermannANEMIA XKFCL3881-85-75 19:45:0011.1[facility] HermannANEMIA PIRKI0921-62-70 19:45:002[facility]p ANEMIA QROAR1662-17-15 19:45:64006Croodbxg HermannANEMIA BVMCY8399-24-24 19:45:0011[facility] HermannANEMIA LZRWD6761-54-41 19:45:88511Knewdiae Jp ANEMIA RRKVX8109-00-13 19:45:08337Tzajspye HermannANEMIA RWFPF2936-31-12 19:45:004[facility]BL[facility] B[facility] MOWCCIQ6861-34-19 19:45:00Negative (03/16/14 2:45 PM)[facility] HermannCARDIAC RBGASIC7938-44-63 19:45:001.9[facility] CARDIAC CYCZBQX6973-77-37 19:45:00<0.02[facility] NryoezkXKOXNLAITI4582-70-53 19:45:002.8[facility] HermannTHYROID WVLFX0728-49-42 19:45:0014.700[facility] HermannTHYROID BBGIB6101-04-12 19:45:001.14[facility]annBLOOD BANK RESULTS 2014-03-16 19:24:00Product available 3(03/16/14 2:24 PM)[facility] PGAUYWCTD2221-10-72 09:22:003.90[facility] XcaqhsvOSXMQASSS2464-34-26 09:22:12762 [facility] PfnghpoAJEKHESXH3747-42-67 09:22:70841Okpugpon HermannCHEMISTRY 2012-09-27 09:22:0050[facility] ZjmkfwdYLQUPZQTB5852-22-11 09:22:91918Xsdvideo ZwnnoisWWXHQIHIF8208-96-39 09:22:001.1[facility] NovlfzsVRNSNUZOY9401-96-00 09:22:0026[facility] XvogcgyMOGLOYMEB4567-73-36 09:22:13209Fhngqgjh Jp QMFXXTQSZ7909-14-26 09:22:0014[facility] HonjmogKJHVZEVAD1004-76-69 09:22:008.2 [facility] KdllteoWLRUKHCBC1213-51-30 09:22:0012.8[facility] HermannCHEMISTRY 2012-09-27 09:22:0066[facility] EiohdyfAGHQNYWXP1516-69-74 09:22:003.8[facility] ItkdblbYKXMDKOII2890-44-69 09:22:33713Bqybsnar JotgdykYHZJVQKYB8083-64-39 09:22:86669Fqzqokyd XctkiyyZVHPMFQLF4547-46-47 09:22:00<0.02[facility] VWEKYZWDD8749-87-48 09:22:00717Uspxsuyy GyprdeoLRGLBOAMJ0708-96-29 09:22:004.7 [facility] KtxtmlsNGGVRYPHC5962-75-54 09:22:000.6[facility] HermannHEMATOLOGY 2012-09-27 09:22:007.8[facility] KotwjhtIWUUPXECYX3190-68-86 09:22:003.4[facility] AatihtzAKNTSBLENA3929-85-08 09:22:005.2[facility] NlfjgppZPKLMGMYJF0340-79-34 09:22:006.6[facility] DndzqabIEESFJDCLY8503-63-19 09:22:000.1[facility] PQDQLZBMOR2521-02-44 09:22:000.9[facility] FussuzySBTYSNXZDS9319-92-70 09:22:000.7 [facility] KsqfvfsHBDDGUSVFN9190-54-58 09:22:000.5[facility] HermannHEMATOLOGY 2012-09-27 09:22:0026.7[facility] PwshtinPQMGCFDOLA7270-52-95 09:22:0061.0[facility] CqbyqfpRVVHWCYETR2979-40-96 09:22:00* Test Item Value Reference Range Interpretation Comments MCH (test code = MCH) 27.2 pg 27.0-31.0 N [facility] JajxqxoQQPRFKTKHB1593-39-65 09:22:004.53[facility] HermannHEMATOLOGY 2012-09-27 09:22:0085.3[facility] MydfoisAJACXOXMCP9512-96-42 09:22:0012.3[facility] UtwuagePPPUGRJJRG8708-28-58 09:22:0038.6[facility] ZdowjhvCRJIXXUXZU9169-99-32 09:22:0012.8[facility] RyvosscGMRICABJEB8557-21-83 09:22:0031.9[facility] PEFDXVQPMS7491-36-02 09:22:0015.6[facility] WavinpmACFSSARUGO7194-13-71 09:22:00 535[facility] LjeryzlZGUQHBTLES7786-62-44 09:22:007.9[facility] HermannHEMATOLOGY 2012-09-26 19:22:004.57[facility] YyyzcqtDASKGXNKLP9034-09-08 19:22:0012.7[facility] KairuwwQRIAMAWLSZ1231-99-66 19:22:0015.7[facility] GeuqpjzSOIKHCSAAF6692-98-96 19:22:38568Ihsjsdfh JdsbarzNDPVWWEZSW4120-49-84 19:22:008.0[facility] XHDVSGAMKG2483-50-50 19:22:0016.0[facility] DaighecUPQPFMMSCT6790-38-87 19:22:00* Test Item Value Reference Range Interpretation Comments MCH (test code = MCH) 27.7 pg 27.0-31.0 N [facility] TgpvwsjCYCYEDBRJS3297-34-49 19:22:0085.5[facility] HermannHEMATOLOGY 2012-09-26 19:22:0032.4[facility] VkzqerdMESXPKYCMZ2059-01-03 19:22:0039.1[facility] NgujxzbQRQIHZELTN0736-63-38 19:22:00Slight (09/26/2012 14:22:00) [facility] RuavexoCGSRPNUWMD4820-65-02 19:22:00Slight *ABN*(09/26/2012 14:22:00) [facility] DkeakqbQMMCELNCBY0058-48-51 19:22:00Slight (09/26/2012 14:22:00) [facility] NybgpjyKNOTRRHAXX3699-28-27 19:22:000.5[facility] WwjeeyhQSMDEWIHYO2093-25-30 19:22:008.8[facility] YpabfygDNMODOEFVV8342-90-76 19:22:003.5[facility] UFVKFISVDS8073-44-26 19:22:003.5[facility] XjqwnzcHZRTGGTCGU4491-65-54 19:22:00 13.0[facility] PghwacwINHXRHSSPZ0331-42-50 19:22:001.3[facility] HermannHEMATOLOGY 2012-09-26 19:22:001.4[facility] AfmxsnxGGFWUWIDFG1175-05-06 19:22:000.5[facility] JeeulilXDBROCCAGP0097-41-18 19:22:000.2[facility] GgcrxefUXQHBLINRV1972-64-79 19:22:00Normal (09/26/2012 14:22:00) [facility] WpiimigFNCJHEEYSV6636-10-63 19:22:0082.9[facility] KwvlarjRUKJGRQSQ2998-71-07 15:06:004.2[facility] RJZNVJSHD6060-85-09 15:06:001.5[facility] AxtvmzeSXLEKUJII9534-76-03 15:06:0059 [facility] FpsdpiqPJVYNTMBQ2409-50-97 15:06:009.1[facility] HermannCHEMISTRY 2012-09-26 15:06:0028[facility] ZhgbxbuOASDUTEGZ8179-29-89 15:06:001.2[facility] QuoqecpKTLGNAXRP2418-27-07 15:06:0010[facility] CxbxeziUZVXFKOAB2598-01-25 15:06:0014.1[facility] HqtokxzQCNYGGICJ8042-15-90 15:06:97884Dssnqpqt [facility] ZCCBIFIEZ2598-48-96 15:06:92554Djnxvzia TmixjqxKVULEBNKX7372-85-28 15:06:004.1 [facility] LiltdmrNXXBYHPIA9155-01-36 15:06:0098[facility] HermannCHEMISTRY 2012-09-26 15:06:78806Cfmjnseq PuowjohOFCZSSZSC2493-13-50 15:06:00<0.02[facility] TbthaotKMTWQHOMV4943-29-47 15:06:000.8[facility] NmistkyQYNLGQAJO7684-52-76 15:06:005.1[facility] YsdcspiUDOIJAFXM1631-03-10 06:29:000.9[facility]p SXJEDLCZQ0464-05-53 06:29:005.1[facility] VrsdsjhTQJMHCRBR7882-30-55 06:29:00453 [facility] HljpxnoTMUQUVZGC8512-13-68 06:29:00<0.02[facility]BL[facility] WFBTWMC2577-47-87 02:48:00Negative (09/25/2012 21:48:00) [facility] YTIEIFE4179-73-74 02:15:00Product available 1(09/25/2012 21:15:00) [facility] UfdkvvdCIWTURZYQ9499-58-07 01:05:007.2[facility] HermannCHEMISTRY 2012-09-26 01:05:0046.900[facility] JakwhspAQGDTFMTZ9290-79-23 01:05:000.53 [facility] WjpfmnqTXFUTXJGN8850-88-97 01:05:001.45[facility] HermannCHEMISTRY 2012-09-26 01:05:38294Dpurvlor AlqanqcHPMBRXZKG1771-98-46 01:05:44690Pawjozny OtiapbkPTAAUIEGT8031-65-92 01:05:0045[facility] TcanaiiFPOQFKKYJ2328-34-60 01:05:97656Zxayxyyk MjstkasTBPENNZBL9037-74-80 01:05:004.58[facility] TARXWRKHK7487-25-20 01:05:0074[facility] DgwcpkfXSDJAHYCN3031-68-00 01:05:000.2 [facility] AxlecpbOTHJOEKGI6556-90-14 01:05:0063[facility] HermannCHEMISTRY 2012-09-26 01:05:0060[facility] YxdrtgmULWOWIXFB9243-95-62 01:05:49348Ddyiqhbd SjqjfxcNTAPDKGJD8167-09-48 01:05:008.5[facility] SgkmbeeFHUCWNUGF0053-25-37 01:05:008.0[facility] UfbvkscTSFOHBPJI1579-34-48 01:05:0012[facility] URMIHHAWW2833-15-93 01:05:003.9[facility] EyghtjzLNOVTRZAX0179-22-62 01:05:001.0 [facility] ZyiqtiyIBYKWVKYR1730-70-82 01:05:0031[facility] HermannCHEMISTRY 2012-09-26 01:05:18663Hxgmhgjy DockgupPDLVEKHKO5811-61-88 01:05:35998Zrjwdedl DmvdweyLKMOLOGLD5962-49-02 01:05:003.9[facility] FhlknweDFYDTMMUD7364-56-80 01:05:77308Znnpkgtt TvwuqxrZBSBVYNGZ7957-18-22 01:05:0012[facility] PBWGLGSKC7175-60-70 01:05:004.1[facility] MudtovnCNNSDJKQB3782-23-32 01:05:001.0 [facility] BjjlxkpDDYPEACOT7781-09-18 01:05:0010.9[facility] HermannHEMATOLOGY 2012-09-26 01:05:00Slight *ABN*(09/25/2012 20:05:00) [facility]annHEMATOLOGY 2012-09-26 01:05:00Slight (09/25/2012 20:05:00) [facility]annHEMATOLOGY 2012-09-26 01:05:00Slight *ABN*(09/25/2012 20:05:00) [facility]annHEMATOLOGY 2012-09-26 01:05:00Slight *ABN*(09/25/2012 20:05:00) [facility]annHEMATOLOGY 2012-09-26 01:05:00Slight *ABN*(09/25/2012 20:05:00) [facility]annHEMATOLOGY 2012-09-26 01:05:000.1[facility] DnfukazXSXFPDQNHD9643-50-34 01:05:000.4[facility] FmesksxJVZJNNFQWJ2064-39-00 01:05:00Slight (09/25/2012 20:05:00) [facility] FukcgunAMFWZMCCMB3284-65-30 01:05:008.9[facility] ErvieqnGQSTMCEAEH7438-64-59 01:05:000.8[facility] KcdzmtbMEWKLTRDBH0748-02-95 01:05:000.8[facility] WVLQNEAGTL1154-49-68 01:05:003.5[facility] YssfxdzRQMLMHLIYA4952-70-54 01:05:00 64.6[facility] LmhbkpwETJERZKBXF2104-59-67 01:05:003.0[facility] HermannHEMATOLOGY 2012-09-26 01:05:005.8[facility] RrloykyKJXWHMYHAU6384-21-68 01:05:0025.8[facility] GiqepllMFBLHLEVFN5736-03-38 01:05:0030.9[facility] GgolkbeXACGYALIIF5356-27-45 01:05:0016.2[facility] ApvtmdsTTBOTPHPCY5817-24-73 01:05:09555Kdwiyzgn [facility] BUSOBVPORC4001-51-04 01:05:0013.8[facility] JmbnywfOLGHWCSFOM4594-78-32 01:05:00 3.36[facility] GqmrkmjTMHVVXSWZY7877-26-67 01:05:007.7[facility] HermannHEMATOLOGY 2012-09-26 01:05:008.7[facility] LuldacrJVKWFYWSHK8563-97-01 01:05:0028.2[facility] QmxnawkVLSLYIRZBH0371-75-74 01:05:0083.9[facility] UdpswevBRQARAJHGJ0295-83-66 01:05:00* Test Item Value Reference Range Interpretation Comments MCH (test code = MCH) 26.0 pg 27.0-31.0 L [facility] XbcwnlrULUUDPXCX7056-55-15 01:04:004[facility] TvjfmypLAHTXMPOW4699-85-06 01:04:007.4[facility] XsydbxiIETYJGQDT7425-32-05 01:04:73682Mxognujx Jp CYLWDVIZW6119-49-01 01:04:003[facility] UekwcmaVAURYGEPT6096-73-31 01:04:19495 [facility] DbnsiffHNCASEVPA9254-74-17 01:04:91653Gpzondrt HermannCHEMISTRY 2012-09-26 01:04:0016[facility] UlfiukjCYZTJQZFY4881-28-84 01:04:00Negative *NA*(09/25/2012 20:04:00) [facility] ErxanskLMSJZDIQXY9203-18-04 01:04:002.0 [facility] ZizwjjkFEIVRVEHXN0975-28-14 21:00:00Negative mg/dL *NA*(09/22/2012 16:00:00) [facility] MbkeydeKGUHFXMRPB3828-31-46 21:00:00Negative *NA*(09/22/2012 16:00:00) [facility] QpsrvmwCIYMHYPRYZ9960-72-37 21:00:00Negative mg/dL *NA*(09/22/2012 16:00:00) [facility] TonjvkuUPLCCPCXVH4196-67-26 21:00:00Negative (09/22/2012 16:00:00) [facility] GuvxbmfBEGWFTOKHI9743-87-20 21:00:002[facility] OxvttmnSAVSBUJLSH1198-37-45 21:00:00Occasional /HPF *NA*(09/22/2012 16:00:00) [facility] OmtqubrVCLHWWAATY2160-45-63 21:00:00Negative (09/22/2012 16:00:00) [facility] ZzbafglFEYGAGVYAZ1170-13-36 21:00:00Many /LPF *ABN*(09/22/2012 16:00:00) [facility] FalrddaFGSFYNDERB1921-92-38 21:00:00Large *ABN*(09/22/2012 16:00:00) [facility] ApdacgtNHJVPUWLWY5285-56-97 21:00:0010[facility] UWWSCKSEIM3027-84-73 21:00:001.020[facility] DoezifyRKJJZVGYRV6736-15-34 21:00:00 Slight *ABN*(09/22/2012 16:00:00) [facility] XcmcjqgRQRSAVCNBH3334-07-07 21:00:00 Negative mg/dL (09/22/2012 16:00:00) [facility] PftfzkeUIHXONDUIG6334-84-88 21:00:007.0[facility] PdxzawrHLKYHYNPM6476-39-49 20:20:296318Rajflhhw Jp KEULMRMYT7532-79-01 20:20:003.9[facility] EqwwmgnCJXIFPFOX6059-04-65 20:20:70702 [facility] RhszgiyYPOKDDIKG7021-59-13 20:20:14108Jzewdzls HermannCHEMISTRY 2012-09-22 20:20:0066[facility] AmqyargIQHFCFNUO3831-29-46 20:20:0017[facility] IceczwpBFYDUVABQ5776-01-60 20:20:0010.9[facility] RpmjjmrMJTNGPRPM1548-19-87 20:20:0072[facility] EgxmskcSIYDQVCMA2142-78-95 20:20:001.1[facility] DDNBAXJJP7272-03-13 20:20:000.3[facility] RreutafPIVULKPYI7374-47-86 20:20:34940 [facility] NyroglaWBDCSIEOT9348-43-02 20:20:003.8[facility] HermannCHEMISTRY 2012-09-22 20:20:0028[facility] RsktmznMWWIKQVHY7681-40-94 20:20:008.0[facility] NctxtlpPZYGRQLMC4234-52-97 20:20:0060[facility] RgomofzPUGBWYKNY6855-19-52 20:20:004.0[facility] EtgrduvNAVAGMDRL7776-29-82 20:20:007.8[facility] Jp NCRUDOVBL8188-30-36 20:20:001.1[facility] WkievehRVXOFUJBI2761-16-96 20:20:69473 [facility] JfeqgxeGDBQLSZUY1760-55-19 20:20:0019[facility] HermannCHEMISTRY 2012-09-22 20:20:006.7[facility] XxjyvrwTIAFWVMCY0217-70-75 20:20:000.6[facility] DypbdoyEZQLHSTUUM5669-97-65 20:20:00* Test Item Value Reference Range Interpretation Comments MCH (test code = MCH) 26.2 pg 27.0-31.0 L [facility] WmoeoxbIOSJHSBLMT9757-35-42 20:20:0084.4[facility] HermannHEMATOLOGY 2012-09-22 20:20:0016.0[facility] YsyskzsBVMIZNPELE7339-72-41 20:20:0031.1[facility] HnvlauuWKTJTFKDNR4722-05-36 20:20:0027.4[facility] WrikqecZLAJBXKSAD5583-63-49 20:20:003.25[facility] XklnqrvOYJXZPBNAX7782-18-27 20:20:0010.2[facility] TXITUXBSRD7169-32-03 20:20:008.5[facility] XumdsdrBZNQVAOGBN4598-36-67 20:20:007.8 [facility] VrolearSNPNCHALAW2781-96-52 20:20:17166Remyvvui HermannHEMATOLOGY 2012-09-22 20:20:0058.3[facility] PqfsposWUXYGMSETE6932-56-42 20:20:0030.0[facility] KtnevrmKPRSXTXTGY0857-01-61 20:20:006.5[facility] ZkxzekkDSVOTAAPRT7783-13-66 20:20:004.3[facility] AtlexucWTQIDPZIER4592-32-66 20:20:000.9[facility]p YABZQLLNEM5198-85-96 20:20:000.4[facility] RmpewjnIWLVBGTNDE9897-79-90 20:20:000.1 [facility] GpmhthdSFWLZAEMNS2567-89-48 20:20:000.7[facility] HermannHEMATOLOGY 2012-09-22 20:20:006.0[facility] SuzxtbuVMWWXOLFCM2375-06-42 20:20:003.1[facility]
[2020-01-09] MEDS ORDERED: KETOROLAC TROMETHAMINE 30 MG/ML VIAL IV ONE (20:00)
[2020-01-09] MEDS ORDERED: ACETAMINOPHEN 325 MG TAB PO ONE (20:00)
[2020-01-09] MEDS ORDERED: ONDANSETRON HCL INJ 2MG/ML 2ML 2 MG/ML VIAL IV ONE (20:00)
[2020-01-09] MEDS ORDERED: SODIUM CHLORIDE 0.9% 1000ML 1,000 ML ONE (20:06)
[2020-01-09] MEDS ORDERED: NICARDIPINE 20MG/200ML PREMIX 0 ML ONE (20:07)
== END 2020-01-09 21:30 | disposition home or self-care (01) ==
LOC: FSED 19:25
DX: R53.1 Weakness (principal); D64.9 Anemia, unspecified; R60.9 Edema, unspecified; M79.18 Myalgia, other site; I10 Essential (primary) hypertension; E11.65 Type 2 diabetes mellitus with hyperglycemia; E78.5 Hyperlipidemia, unspecified; I25.10 Atherosclerotic heart disease of native coronary artery without angina pectoris; E66.9 Obesity, unspecified; I25.2 Old myocardial infarction; Z95.1 Presence of aortocoronary bypass graft; Z95.5 Presence of coronary angioplasty implant and graft; Z85.71 Personal history of Hodgkin lymphoma
CPT/HCPCS: 80053; 81003; 82553; 84484; 99283; J1885; J2405; J7030

== ENCOUNTER 2020-11-23 16:33 | Observation (INO) | payer BC, MEDICARE ==
[~2020-11-23] VITALS: Ht 162.6 cm; Wt 100.0 kg
[~2020-11-23 16:33] MED LIST changes: -TRULICITY1.5 MG/0.5; +TRULICITY1.5 MG/0.5 SC
[2020-11-23] MEDS ORDERED: ONDANSETRON HCL INJ 2MG/ML 2ML 2 MG/ML VIAL IV PRN (17:30)
[2020-11-23] MEDS ORDERED: MORPHINE SULFATE INJ 2 MG/ML SYR IV PRN (17:30)
[2020-11-23] MEDS ORDERED: ASPIRIN 81 MG CHEW TAB PO ONE (17:30)
[2020-11-23] MEDS ORDERED: MORPHINE SULFATE INJ 4 MG/ML INJ 1ML IV PRN (17:30)
[2020-11-23] MEDS ORDERED: ASPIRIN 81 MG CHEW TAB ONE (18:42)
[2020-11-23 19:25] VITALS: BP 142/84
[2020-11-23 20:00] VITALS: BP 142/84
[2020-11-23] MEDS ORDERED: GLIPIZIDE-METF1 EAC2 PO (20:08)
[2020-11-23] MEDS ORDERED: LYRICA100 MG PO (20:08)
[2020-11-23] MEDS ORDERED: LIOTHYRONINE SO5 MCG PO (20:08)
[2020-11-23 20:15] LABS: CREATINE KINASE MB 5.2 ng/mL (0-5.0)
[2020-11-23] MEDS ORDERED: DEXTROSE 50% SYRINGE 50 ML IV PRN (20:30)
[2020-11-23] MEDS ORDERED: TRAMADOL HCL 50 MG TAB PO PRN (20:45)
[2020-11-23] MEDS ORDERED: ZOLPIDEM TARTRATE 10 MG TAB PO PRN (20:45)
[2020-11-23 20:51] LABS: FERRITIN 14.68 ng/mL (4.63-204.00)
[2020-11-23 21:00] VITALS: BP 142/84
[2020-11-23] MEDS ORDERED: INSULIN LISPRO 100 UNIT/1 ML 3ML VIAL SQ SCH (21:00)
[2020-11-23] MEDS: ATORVASTATIN 20 MG TAB PO SCH (21:08)
[2020-11-23] MEDS: PREGABALIN 75 MG CAP PO SCH (21:08)
[2020-11-23] MEDS ORDERED: INSULIN LISPRO 100 UNIT/1 ML 3ML VIAL SQ STA (22:18)
[2020-11-24] VITALS (7 sets, daily range): BP systolic 88–118; BP diastolic 45–71
[2020-11-24 06:01] LABS: CHOL/HDL RATIO 6.1 (3.0-3.6)
[2020-11-24 06:20] LABS: FREE T4 (FREE THYROXINE) 0.45 ng/dL (0.8-1.8); THYROID STIMULATING HORMONE 15.689 uIU/mL (0.350-4.940)
[2020-11-24 06:26] LABS: BASOPHILS # (AUTO) 0.1 (0.0-0.1); BASOPHILS % 1.4 % (0.0-1.0); EOSINOPHILS # (AUTO) 0.3 (0.0-0.4); EOSINOPHILS % 3.5 % (0.0-6.0); LYMPHOCYTES # (AUTO) 2.3 (1.0-3.2); LYMPHOCYTES % 26.6 % (18.0-39.1); MEAN CORPUSCULAR HGB CONC 27.6 g/dL (31-35); MEAN CORPUSCULAR VOLUME 68.7 fL (81-99); MONOCYTES # (AUTO) 0.5 (0.2-0.8); MONOCYTES % 6.2 % (4.4-11.3); NEUTROPHILS # (AUTO) 5.4 (2.1-6.9); PLATELET COUNT 417 x10e3/uL (140-360); RED BLOOD COUNT 4.22 x10e6/uL (3.6-5.1); RED CELL DISTRIBUTION WIDTH 21.3 % (11.7-14.4)
[2020-11-24] MEDS: LEVOTHYROXINE SODIUM 125 MCG TAB PO SCH (06:27)
[2020-11-24 06:48] LABS: ALBUMIN 3.8 g/dL (3.5-5.0); ANION GAP 13.6 mmol/L (8-16); CALCIUM 8.1 mg/dL (8.4-10.2); CREATININE, SERUM 1.17 mg/dL (0.57-1.11); POTASSIUM 3.6 mmol/L (3.5-5.1)
[2020-11-24 07:37] LABS: HYPOCHROMASIA MODERATE
[2020-11-24 07:38] LABS: ANISOCYTOSIS MODERATE; RBC MORPHOLOGY COMMENT ABNORMAL
[2020-11-24 07:39] LABS: PLATELET ESTIMATE SLIGHTLY INCREASED; SCHISTOCYTES RARE
[2020-11-24 07:42] LABS: OVALOCYTES FEW
[2020-11-24 07:43] LABS: PLATELET MORPHOLOGY COMMENT FEW GIANT
[2020-11-24] MEDS: INSULIN LISPRO 100 UNIT/1 ML 3ML VIAL SQ SCH ×4 (08:39→20:46)
[2020-11-24] MEDS ORDERED: LISINOPRIL 10 MG TAB PO SCH (09:00)
[2020-11-24] MEDS: METOPROLOL TARTRATE 25 MG TAB PO SCH ×2 (09:05→16:02)
[2020-11-24] MEDS: ASPIRIN 81 MG CHEW TAB PO SCH (09:06)
[2020-11-24] MEDS: SERTRALINE HCL 50 MG TAB PO SCH (09:06)
[2020-11-24] MEDS ORDERED: DIPHENHYDRAMINE HCL INJ 50 MG/ML VIAL IV PRN (09:30)
[2020-11-24] MEDS ORDERED: SODIUM CHLORIDE 0.9% 250ML 250 ML ONE (10:07)
[2020-11-24] MEDS: IRON SUCROSE 100 MG in SODIUM CHLORIDE 0.9% 100 ML 100 ML IV SCH (10:18)
[2020-11-24 14:36] LABS: CREATINE KINASE MB 10.2 ng/mL (0-5.0)
[2020-11-24] MEDS: PREGABALIN 75 MG CAP PO SCH (20:00)
[2020-11-24] MEDS: ATORVASTATIN 20 MG TAB PO SCH (20:00)
[2020-11-24] MEDS ORDERED: CALCIUM CARBONATE 500 MG CHEWABLE TABS PO PRN (21:45)
[2020-11-25] VITALS: BP 93/50
[2020-11-25 04:00] VITALS: BP 110/60
[2020-11-25 04:54] LABS: BASOPHILS # (AUTO) 0.1 (0.0-0.1); BASOPHILS % 1.3 % (0.0-1.0); EOSINOPHILS # (AUTO) 0.4 (0.0-0.4); EOSINOPHILS % 3.9 % (0.0-6.0); HEMATOCRIT 29.5 % (34.2-44.1); HEMOGLOBIN 8.1 g/dL (12.0-16.0); LYMPHOCYTES # (AUTO) 2.5 (1.0-3.2); LYMPHOCYTES % 27.5 % (18.0-39.1); MEAN CORPUSCULAR HGB CONC 27.5 g/dL (31-35); MEAN CORPUSCULAR VOLUME 69.2 fL (81-99); MONOCYTES # (AUTO) 0.5 (0.2-0.8); MONOCYTES % 5.1 % (4.4-11.3); NEUTROPHILS # (AUTO) 5.6 (2.1-6.9); NEUTROPHILS % 61.4 % (38.7-80.0); PLATELET COUNT 387 x10e3/uL (140-360); RED BLOOD COUNT 4.26 x10e6/uL (3.6-5.1); RED CELL DISTRIBUTION WIDTH 21.2 % (11.7-14.4)
[2020-11-25 05:22] LABS: ANION GAP 12.4 mmol/L (8-16); CALCIUM 9.1 mg/dL (8.4-10.2); CREATININE, SERUM 1.3 mg/dL (0.57-1.11); POTASSIUM 4.4 mmol/L (3.5-5.1)
[2020-11-25] MEDS: LEVOTHYROXINE SODIUM 125 MCG TAB PO SCH (06:33)
[2020-11-25 08:00] VITALS: BP 87/45
[2020-11-25] MEDS: INSULIN LISPRO 100 UNIT/1 ML 3ML VIAL SQ SCH ×3 (08:30→16:02)
[2020-11-25] MEDS: SERTRALINE HCL 50 MG TAB PO SCH (08:30)
[2020-11-25] MEDS: ASPIRIN 81 MG CHEW TAB PO SCH (08:30)
[2020-11-25 08:50] VITALS: BP 87/45
[2020-11-25] MEDS ORDERED: SODIUM CHLORIDE 0.9% 1000ML 500 ML IV ONE (08:50)
[2020-11-25] MEDS ORDERED: LOPRESSOR25 MG PO (10:17)
[2020-11-25] MEDS ORDERED: LISINOPRIL10 MG PO (10:17)
[2020-11-25] MEDS ORDERED: ASPIRIN CHEW81 MG PO (10:17)
[2020-11-25] MEDS ORDERED: LANTUS 3ML100 UNITS/ SUBD (11:13)
[2020-11-25 11:22] VITALS: BP 90/52
[2020-11-25] MEDS: IRON SUCROSE 100 MG in SODIUM CHLORIDE 0.9% 100 ML 100 ML IV SCH (11:45)
[2020-11-25] MEDS ORDERED: ONDANSETRON HCL 4 MG ORAL DISINTEGRATING TAB PO PRN (13:00)
[2020-11-25 15:02] VITALS: BP 116/83
[2020-11-25] MEDS ORDERED: METOPROLOL TARTRATE 25 MG TAB PO SCH (17:00)
[2020-11-26] MEDS ORDERED: LISINOPRIL 10 MG TAB PO SCH (09:00)
== END 2020-11-25 16:02 | disposition home or self-care (01) ==
LOC: FSED 16:59 → ERHOLD 17:19 → IMCU 19:19
PROVIDERS: ADMIT Internal Medicine; ATTEND Internal Medicine
DX: R55 Syncope and collapse (principal); E11.65 Type 2 diabetes mellitus with hyperglycemia; R07.9 Chest pain, unspecified; I25.10 Atherosclerotic heart disease of native coronary artery without angina pectoris; Z98.61 Coronary angioplasty status; Z95.1 Presence of aortocoronary bypass graft; I10 Essential (primary) hypertension; E89.0 Postprocedural hypothyroidism; E78.5 Hyperlipidemia, unspecified; D50.9 Iron deficiency anemia, unspecified; N92.0 Excessive and frequent menstruation with regular cycle; C81.90 Hodgkin lymphoma, unspecified, unspecified site; E66.9 Obesity, unspecified; E03.9 Hypothyroidism, unspecified; Z83.3 Family history of diabetes mellitus; Z82.49 Family history of ischemic heart disease and other diseases of the circulatory system; Z91.19 Patient's noncompliance with other medical treatment and regimen; Z68.37 Body mass index [BMI] 37.0-37.9, adult; Z79.4 Long term (current) use of insulin
CPT/HCPCS: 36415 ×3; 71046; 80048; 80053 ×2; 80061; 81003; 81025; 82550 ×2; 82553 ×2; 82728; 82948 ×3; 83036; 83540; 83880; 84439; 84443; 84466; 84480; 84484 ×2; 85025 ×3; 85379; 85610; 93005; 93306; 96372; 99284; G0378 ×3; J1200 ×2; J1756 ×2; J2405; J7030; J7050

== ENCOUNTER 2020-12-12 16:25 | Emergency (ER) | payer BC, MEDICARE ==
[~2020-12-12] VITALS: Ht 162.6 cm; Wt 106.8 kg
[~2020-12-12 16:25] MED LIST changes: +ASPIRIN CHEW81 MG PO; +GLIPIZIDE-METF1 EAC2 PO; +LANTUS 3ML100 UNITS/ SUBD; +LIOTHYRONINE SO5 MCG PO; +LOPRESSOR25 MG PO; +LYRICA100 MG PO
== END 2020-12-12 19:04 | disposition home or self-care (01) ==
LOC: FSED 16:46
DX: R60.9 Edema, unspecified (principal); I10 Essential (primary) hypertension; E11.9 Type 2 diabetes mellitus without complications; E03.9 Hypothyroidism, unspecified; I25.10 Atherosclerotic heart disease of native coronary artery without angina pectoris; E78.5 Hyperlipidemia, unspecified; F41.9 Anxiety disorder, unspecified; E66.9 Obesity, unspecified; Z85.72 Personal history of non-Hodgkin lymphomas; Z95.1 Presence of aortocoronary bypass graft; Z95.5 Presence of coronary angioplasty implant and graft
CPT/HCPCS: 93970; 93971; 99283

== ENCOUNTER 2021-07-28 09:22 | Observation (INO) | payer BC, MEDICARE ==
[~2021-07-28] VITALS: Ht 162.6 cm; Wt 99.3 kg
[2021-07-28] MEDS ORDERED: NITROGLYCERIN 2% OINT 1 GM PKT TOP ONE (09:30)
[2021-07-28] MEDS ORDERED: FAMOTIDINE 20 MG/2 ML VIAL IV ONE ×2 (10:00→10:02)
[2021-07-28] MEDS ORDERED: ACETAMINOPHEN 325 MG TAB PO ONE (10:00)
[2021-07-28] MEDS ORDERED: NITROGLYCERIN 2% OINT 1 GM PKT ONE (10:02)
[2021-07-28] MEDS ORDERED: ACETAMINOPHEN 325 MG TAB ONE (10:02)
[2021-07-28] MEDS: FAMOTIDINE 20 MG/2 ML VIAL IV SCH ×2 (10:13→22:08)
[2021-07-28] MEDS: NITROGLYCERIN 2% OINT 1 GM PKT TOP SCH ×2 (10:13→17:42)
[2021-07-28] MEDS ORDERED: SODIUM CHLORIDE FLUSH 10 ML SYR INJ PRN (10:15)
[2021-07-28] MEDS ORDERED: ONDANSETRON HCL INJ 2MG/ML 2ML 2 MG/ML VIAL IV PRN (10:15)
[2021-07-28] MEDS: METOPROLOL TARTRATE 25 MG TAB PO SCH ×2 (10:25→21:00)
[2021-07-28 12:18] VITALS: BP 144/99
[2021-07-28 12:19] VITALS: BP 144/99
[2021-07-28 12:31] VITALS: BP 144/99
[2021-07-28] MEDS ORDERED: LANTUS 3ML100 UNITS/ SC (12:47)
[2021-07-28] MEDS ORDERED: PANTOPRAZOLE SO40 MG PO (12:47)
[2021-07-28] MEDS: ACETAMINOPHEN 325 MG TAB PO PRN ×2 (13:49→17:46)
[2021-07-28] MEDS ORDERED: DIPHENHYDRAMINE HCL INJ 50 MG/ML VIAL IV PRN (14:00)
[2021-07-28] MEDS ORDERED: ENALAPRILAT IV INJ 1.25 MG/ML VIAL IV PRN (14:00)
[2021-07-28] MEDS ORDERED: ZOLPIDEM TARTRATE 5 MG TAB PO PRN (14:00)
[2021-07-28] MEDS ORDERED: DEXTROSE 50% SYRINGE 50 ML IV PRN (14:00)
[2021-07-28] MEDS ORDERED: ENOXAPARIN SODIUM INJ 100 MG/ML SYR SC ONE (14:30)
[2021-07-28 15:17] VITALS: BP 102/60
[2021-07-28 15:45] LABS: CREATINE KINASE MB 5.4 ng/mL (0-5.0)
[2021-07-28] MEDS: INSULIN REGULAR, HUMAN 100 UNIT/1 ML SQ SCH ×2 (17:41→22:09)
[2021-07-28] MEDS ORDERED: TRAMADOL HCL 50 MG TAB PO PRN (19:30)
[2021-07-28 20:00] VITALS: BP 100/62
[2021-07-28] MEDS ORDERED: SIMVASTATIN 40 MG TAB PO SCH (21:00)
[2021-07-29 00:02] VITALS: BP 111/66
[2021-07-29 04:00] VITALS: BP 103/53
[2021-07-29] MEDS: NITROGLYCERIN 2% OINT 1 GM PKT TOP SCH ×3 (05:50→12:00)
[2021-07-29 06:21] LABS: ALBUMIN 3.5 g/dL (3.5-5.0); ANION GAP 14.7 mmol/L (8-16); CALCIUM 8.2 mg/dL (8.4-10.2); CREATININE, SERUM 1.04 mg/dL (0.57-1.11); MAGNESIUM 1.7 MG/DL (1.3-2.1); POTASSIUM 3.7 mmol/L (3.5-5.1)
[2021-07-29 06:40] LABS: BASOPHILS # (AUTO) 0.1 (0.0-0.1); BASOPHILS % 1.3 % (0.0-1.0); EOSINOPHILS # (AUTO) 0.3 (0.0-0.4); EOSINOPHILS % 4.9 % (0.0-6.0); HEMATOCRIT 33.2 % (34.2-44.1); HEMOGLOBIN 9.6 g/dL (12.0-16.0); LYMPHOCYTES # (AUTO) 2.1 (1.0-3.2); MEAN CORPUSCULAR HEMOGLOBIN 22.9 pg (28-32); MEAN CORPUSCULAR HGB CONC 28.9 g/dL (31-35); MONOCYTES # (AUTO) 0.5 (0.2-0.8); MONOCYTES % 6.5 % (4.4-11.3); NEUTROPHILS # (AUTO) 3.9 (2.1-6.9); PLATELET COUNT 461 x10e3/uL (140-360); RED CELL DISTRIBUTION WIDTH 19.1 % (11.7-14.4)
[2021-07-29 06:44] LABS: FREE T4 (FREE THYROXINE) 0.52 ng/dL (0.8-1.8); THYROID STIMULATING HORMONE 21.433 uIU/mL (0.350-4.940)
[2021-07-29 06:56] LABS: CHOL/HDL RATIO 5.4 (3.0-3.6)
[2021-07-29 07:03] LABS: CREATINE KINASE MB 3.2 ng/mL (0-5.0)
[2021-07-29] MEDS ORDERED: PANTOPRAZOLE SOD 40 MG TABEC PO SCH (07:30)
[2021-07-29] MEDS: INSULIN REGULAR, HUMAN 100 UNIT/1 ML SQ SCH ×2 (07:30→11:59)
[2021-07-29 08:05] VITALS: BP 95/65
[2021-07-29 08:19] VITALS: BP 95/65
[2021-07-29 08:26] LABS: EOSINOPHILS % (MANUAL) 3 % (0-7); LYMPHOCYTES % (MANUAL) 28 % (19-48); MONOCYTES % (MANUAL) 8 % (3.4-9.0); NEUTROPHILS % (MANUAL) 57 % (40-74); PLATELET ESTIMATE ADEQUATE; PLATELET MORPHOLOGY COMMENT NORMAL; RBC MORPHOLOGY COMMENT NORMAL
[2021-07-29] MEDS ORDERED: ASPIRIN 325 MG TAB EC PO SCH (09:00)
[2021-07-29] MEDS ORDERED: SERTRALINE HCL 50 MG TAB PO SCH (09:00)
[2021-07-29] MEDS ORDERED: ASPIRIN 81 MG CHEW TAB PO SCH (09:00)
[2021-07-29] MEDS ORDERED: PREGABALIN 75 MG CAP PO SCH (09:00)
[2021-07-29] MEDS ORDERED: LISINOPRIL 10 MG TAB PO SCH (09:00)
[2021-07-29] MEDS ORDERED: INSULIN GLARGINE 100 UNITS/ML VIAL SQ SCH (09:00)
[2021-07-29] MEDS ORDERED: VALSARTAN 160 MG TAB PO SCH (09:00)
[2021-07-29] MEDS ORDERED: METOPROLOL TARTRATE 25 MG TAB PO SCH (09:00)
[2021-07-29] MEDS: FAMOTIDINE 20 MG/2 ML VIAL IV SCH (09:07)
[2021-07-29] MEDS ORDERED: REGADENOSON 0.4 MG/5 ML SYR IV ONE (10:13)
[2021-07-29 12:08] VITALS: BP 133/80
[2021-07-29] MEDS ORDERED: LEVOTHYROXINE SODIUM 100 MCG TAB PO SCH (21:00)
[2021-07-29] MEDS ORDERED: FAMOTIDINE 20 MG TAB PO SCH (21:00)
[2021-07-29] MEDS ORDERED: ATORVASTATIN 20 MG TAB PO SCH (21:00)
== END 2021-07-29 15:36 | disposition home or self-care (01) ==
LOC: FSED 09:30 → ERHOLD 10:05 → MED/SURG3 12:06
PROVIDERS: ADMIT Internal Medicine; ATTEND Internal Medicine
DX: I24.9 Acute ischemic heart disease, unspecified (principal); I10 Essential (primary) hypertension; E78.5 Hyperlipidemia, unspecified; E11.9 Type 2 diabetes mellitus without complications; I25.10 Atherosclerotic heart disease of native coronary artery without angina pectoris; Z95.1 Presence of aortocoronary bypass graft; M25.512 Pain in left shoulder; E66.9 Obesity, unspecified; Z68.37 Body mass index [BMI] 37.0-37.9, adult; I45.10 Unspecified right bundle-branch block; Z20.822 Contact with and (suspected) exposure to COVID-19
CPT/HCPCS: 36415 ×2; 71045; 78452; 80053 ×2; 80061; 82550 ×2; 82553 ×2; 82948 ×2; 83036; 83735; 84439; 84443; 84480; 84484 ×2; 85025 ×2; 93005; 93017; 93306; 94799; 99284; A9502; G0378 ×2; J1650; J1815; J1817; J2785; S0164; U0002

== ENCOUNTER 2022-04-23 09:23 | Emergency (ER) | payer BC, MEDICARE ==
[~2022-04-23] VITALS: Ht 160 cm; Wt 99.8 kg
[~2022-04-23 09:23] MED LIST changes: +LANTUS 3ML100 UNITS/ SC; +PANTOPRAZOLE SO40 MG PO
[2022-04-23] MEDS: SODIUM CHLORIDE 0.9% 1000ML 1,000 ML IV SCH (10:40)
[2022-04-23] MEDS: DEXAMETHASONE SOD PHOS 10 MG/1 ML VIAL IV ONE (10:40)
[2022-04-23] MEDS: METOCLOPRAMIDE HCL 10 MG/2ML VIAL IV ONE (10:47)
[2022-04-23] MEDS ORDERED: ONDANSETRON ODT4 MG PO (12:38)
[2022-04-23] MEDS ORDERED: EC-NAPROSYN500 MG PO (12:38)
== END 2022-04-23 12:50 | disposition home or self-care (01) ==
LOC: FSED 09:43
DX: R42 Dizziness and giddiness (principal); E11.65 Type 2 diabetes mellitus with hyperglycemia; R11.2 Nausea with vomiting, unspecified; R51.9 Headache, unspecified; Z95.1 Presence of aortocoronary bypass graft; Z95.5 Presence of coronary angioplasty implant and graft
CPT/HCPCS: 70450; 80053; 85025; 85610; 99283; J1100